=== PATIENT | female | born 1945 | race Caucasian/White ===

== ENCOUNTER 2025-08-29 16:35 | Emergency (ER) | payer MEDICARE, SELFPAY ==
--- OUTSIDE RECORDS SUMMARY | 2025-07-21 08:46 | XMS_ITS | Encounter Summary ---
Author Organization [facility] Address [address] [place] [address] Care Team Providers Care Unit Technician Name Role Phone Jay Guzman M.D. Primary Care [facility] Reason for Referral * Outpatient (Routine) - Closed Specialty Diagnoses / Procedures Referred By Contac t Referred To Contact Diagnoses Atrial Fibrillation Other Persistent (HCC) Procedures ECG 12 Lead Jorge Ordaz M.D. [address] [place] [address] Phone: tel: fax: [facility] Referral ID Status Reason Start Date Expiration Date Visits Re quested Visits Authorized [id number] Closed 12/23/2024 03/25/2026 1 1 Reason for Visit * Outpatient (Routine) - Closed Specialty Diagnoses / Procedures Referred By Osvaldo keith Referred To Contact Diagnoses Atrial Fibrillation Other Persistent (HCC) Procedures ECG 12 Lead Jorge Ordaz M.D. [address] [place] [address] Phone: tel: fax: [facility] Region Referral ID Status Reason Start Date Expiration Date Visits Re quested Visits Authorized [id number] Closed 12/23/2024 03/25/2026 1 1 Encounter Details Date Type Department Care Team (Latest Contact Info) Description 07/21/2025 8:46 AM CDT - 07/21/2025 11:59 PM CDT Hospital Encounter Department of Laboratory Medicine in [place], [place] [address] [facility] [address] Jorge Ordaz M.D. [address] [facility] [place] [phone] Atrial Fibrillation Other Persistent (HCC) Discharge Disposition: Home or Self Care Social History Tobacco Use Types Packs/Day Years Used Date Smoking Tobacco: Never Passive Smoke Exposure: Past Smokeless Tobacco: Never Comments:Father smoked until 1956 Alcohol Use Standard Drinks/Week Comments Not Currently 0 (1 standard drink = 0.6 oz pure alcohol) Not used since 1976 - anabaptism reasons Humiliation, Afraid, Rape, and Kick questionnair e Answer Date Recorded Within the last year, have y ou been afraid of your partner or ex-partner? No 11/29/2024 Within the last year, have y ou been humiliated or emotionally abused in other ways by your partner or ex-partner? No Within the last year, have y ou been kicked, hit, slapped, or otherwise physically hurt by your partner or ex-partner? No 11/29/2024 Within the last year, have y ou been raped or forced to have any kind of sexual activity by your partner or ex-partner? No 11/29/2024 Hunger Vital Sign Answer Date Recorded Within the past 12 months, y ou worried that your food would run out before you got the money to buy more. Never true 07/14/20 25 Within the past 12 months, t he food you bought just didn't last and you didn't have money to get more. Never true 07/14/2025 PRAPARE - Transportation Answer Date Re corded In the past 12 months, has l ack of transportation kept you from medical appointments or from getting medications? No 06/17 In the past 12 months, has l ack of transportation kept you from meetings, work, or from getting things needed for daily living? No 07/14/2025 [facility] Utilities Answer Date Recorded In the past 12 months has th e electric, gas, oil, or water company threatened to shut off services in your home? No 07/14/2025 Depression Answer Date Recor ded PHQ-9 Total Score (max 27) 0 12/02 Housing Stability Answer Date Recorded What is your living situation today? I have a [facility] [place] place to live 07/14/2025 Education Answer Date Recorded What is the highest level of school you have completed or the highest degree you have received? 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 AM ADVISORY SERVICES ASSOCIATE Gender Identity Female 08/18/2021 8:27 PM CDT Sexual Orientation Not on file Occupation Industry Job Start Date Job End Date [employer] Not on file Not on file Not on file Not on file Not on file Not on file Not on file documented as of this encounter Medications at Time of Discharge ASCORBIC ACID, VITAMIN C, ORAL Take 1 tablet by mouth as needed. clobetasoL (Temovate) 0.05 % ointment Apply 1 Application topically 2 (two) times a day. Apply to perianal skin twice daily for 4-6 weeks. If symptoms improve can then switch to twice daily. 30 g 12/20/2024 co-enzyme Q-10 (Co Q-10) 100 mg capsule Take 100 mg by mouth daily. cyanocobalamin (vitamin B-12) 250 mcg tablet Take 250 mcg by mouth once a week. Once a week estradioL (Estrace) 0.1 mg/g (0.01%) vaginal cream Insert 2 g into the vagina at bedtime. Apply twice weekly. 30 g 3 01/02/2025 phytonadione, vitamin K1, (Mephyton) 100 mcg tablet Take 100 mcg by mouth once. terbinafine (LamISIL) 250 mg tabletIndication s:Onychomycosis Take 1 tablet (250 mg total) by mouth daily. 04/25/2025 UNABLE TO FIND Take 1 each by mouth once daily. Med Name: calm (magnesium citrate) 1/2 tsp UNABLE TO FIND Take 1 each by mouth daily. Med Name: Calm with calcium (magnesium citrate, calcium, potassium and boron) 1 tsp daily UNABLE TO FIND Med Name: AlgaeCal - calcium, magnesium, boron, vitamin K1, D, & C VITAMIN A ORAL Take 1 capsule by mouth 2 (two) times a week. vitamin K2 100 mcg capsule Take 1 capsule by mouth daily. vitamins A,C,V-jlzr-guvef r (PRESERVISION AREDS) 7,160 Units-113 mg-100 Units per tablet Take 1 tablet by mouth daily. documented as of this encounter Plan of Treatment Upcoming Encounters Date Type Department Care Team (Latest Contact Info) Description 08/30/2025 10:30 AM CDT Hospital Encounter Division of Cardiovascular Diseases in [address] [phone] Perry Lozano M.D., M.P.H. [address] [place] [phone] Atrial Fibrillation Permanent (HCC) 08/30/2025 11:46 AM CDT - 08/30/2025 2:26 PM CDT Surgery Division of Cardiovascular Diseases in [address] [phone] Perry Lozano M.D., M.P.H. [address] [place] [phone] PPM IMPLANT 08/31/2025 4:25 PM CDT Hospital Encounter Division of Cardiovascular Diseases in [address] [phone] Alo Mehta M.D., M.B.A. [address] [place] [phone] Atrial Fibrillation Longstanding Persistent (HCC) 08/31/2025 4:25 PM CDT - 08/31/2025 6:20 PM CDT Surgery Division of Cardiovascular Diseases in [address] [phone] Alo Mehta M.D., M.B.A. [address] [place] [address] ABLATION - AV NODE 10/24/2025 1:00 PM ADVISORY SERVICES ASSOCIATE Appointment Department of Cardiovascular Diseases in [place], [place] [address] [facility] [place] [address] Jorge Ordaz M.D. [address] [place] [address] documented as of this encounter Procedures Procedure Name Priority Date/Time Associated Diagnosis Comments ECG Routine 07/21/2025 9:06 AM CDT Atrial Fibrillation Other Persistent (HCC) documented in this encounter Results * ECG 12 Lead (07/21/2025 9:06 AM CDT) Ventricular Rate ECG/Min 129 BPM MUSE QRSD Interval 100 ms MUSE QT Interval 326 ms MUSE QTC Interval 477 ms MUSE R [place] -74 degrees MUSE T Wave [place] 93 degrees MUSE 07/21/2025 9:06 AM CDT 07/21/2025 9:47 AM CDT Impressions MUSE - 07/21/2025 9:47 AM CDT Atrial fibrillation with rapid ventricular response Left anterior fascicular block Incomplete right bundle branch block Nonspecific ST and T wave abnormality When compared with ECG of 23-Jan-2025 12:19, Vent. rate has increased by 60 bpm Incomplete right bundle branch block is now present Atrial fibrillation is no longer with premature ventricular or aberrantly conducted complexes Reviewed by MONALISA Haro Narrative Procedure Note John Zaidi M.D. - 07/21/2025 IMPRESSION: Atrial fibrillation with rapid ventricular response Left anterior fascicular block Incomplete right bundle branch block Nonspecific ST and T wave abnormality When compared with ECG of 23-Jan-2025 12:19, Vent. rate has increased by 60 bpm Incomplete right bundle branch block is now present Atrial fibrillation is no longer with premature ventricular or aberrantlyconducted complexes Reviewed by MONALISA Haro Jorge Ordaz M.D. ECG ORDERABLES Final Resu lt MUSE NA documented in this encounter Visit Diagnoses Diagnosis Atrial Fibrillation Other Persistent (HCC) Atrial Fibrillation Permanent (HCC)- Primary Atrial Fibrillation Longstanding Persistent (HCC)- Primary Atrial Fibrillation Permanent (HCC) Atrial Fibrillation Longstanding Persistent (HCC) documented in this encounter Additional Health Concerns Assessment Noted Time PHQ-9 Depression Total Score: 0 12/02/19 25 3:00 PM ADVISORY SERVICES ASSOCIATE A fall risk assessment has been complete d for the patient 09/12/2022 10:09 AM CDT documented as of this encounter Care Teams Unit Technician Relationship Specialty Start Date End Date Jay Guzman M.B.B.S., M.D. [address] [place] [phone] PCP - General Family Medicine 09/20/20 documented as of this encounter
--- OUTSIDE RECORDS SUMMARY | 2025-07-21 09:30 | XMS_ITS | Encounter Summary ---
Author Organization [facility] Address [address] [place] [address] Care Team Providers Care Shearing Machine Tender Name Role Phone Jay Guzman M.D. [facility] Reason for Referral * Cardiovascular-Diagnostic (Routine) - Authorized Specialty Diagnoses / Procedures Referred By Contcorrine t Referred To Contact Diagnoses Atrial Fibrillation Longstanding Persistent (HCC) Regurgitation Mitral Procedures Echo Transthoracic (TTE) Echo Transthoracic (TTE) Jorge Ordaz M.D. [address] [place] [address] Phone: tel: fax: [facility] Region Referral ID Status Reason Start Date Expiration Date V isits Requested Visits Authorized [id number] Authorized 07/21/2025 10/21/2026 1 1 * Outpatient (Routine) - Authorized Specialty Diagnoses / Procedures Referred By Contac t Referred To Contact Diagnoses Atrial Fibrillation Longstanding Persistent (HCC) Regurgitation Mitral Procedures ECG 12 Lead [place] EKG 12 LEAD W I&R Jorge Ordaz M.D. [address] [place] [address] Phone: tel: fax: [facility] Region Referral ID Status Reason Start Date Expiration Date V isits Requested Visits Authorized [id number] Authorized 07/21/2025 10/21/2026 1 1 * Outpatient (Routine) - Authorized Specialty Diagnoses / Procedures Referred By Osvaldo keith Referred To Contact Cardiovascular Disease Jorge Ordaz M.D. [address] [place] [address] Phone: tel: fax: [facility] Region Referral ID Status Reason Start Date Expiration Date V isits Requested Visits Authorized [id number] Authorized 07/21/2025 01/20/2027 1 1 Reason for Visit * Reason Comments Follow-up * Outpatient (Routine) - Closed Specialty Diagnoses / Procedures Referred By Osvaldo keith Referred To Contact Cardiovascular Disease Jorge Ordaz M.D. [address] [place] [address] Phone: tel: fax: [facility] Region Referral ID Status Reason Start Date Expiration Date Visits Re quested Visits Authorized [id number] Closed 12/23/2024 06/24/2026 1 1 Encounter Details Date Type Department Care Team (Latest Contact Info) Description 07/21/2025 9:30 AM CDT Office Visit Department of Cardiovascular Diseases in [place], [place] [address] [place] [phone] Jorge Ordaz M.D. [address] [place] [phone] Atrial Fibrillation Longstanding Persistent (HCC) (Primary Dx); Regurgitation Mitral Social History Tobacco Use Types Packs/Day Years Used Date Smoking Tobacco: Never Passive Smoke Exposure: Past Smokeless Tobacco: Never Comments:Father smoked until 1956 Alcohol Use Standard Drinks/Week Comments Not Currently 0 (1 standard drink = 0.6 oz pure alcohol) Not used since 1976 - scientologist reasons Humiliation, Afraid, Rape, and Kick questionnair [...] things needed for daily living? No 07/14/2025 [facility] Utilities Answer Date Recorded In the past 12 months has [facility] electric, gas, oil, or water company threatened to shut off services in your home? No 07/14/2025 Depression Answer Date Recor ded PHQ-9 Total Score (max 27) 0 12/02 Housing Stability Answer Date Recorded What is your living situation today? I have a [facility] place to live 07/14/2025 Education Answer Date Recorded What is the highest level of school you have completed or the highest degree you have received? 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 [id number] 3 (4 if heart failure, 5 if [...] for her needs. - Consult with a line crewman to develop a suitable diet plan Advance Care Planning The patient has an advanced care plan on file. PLAN: #1 Atrial Fibrillation Longstanding Persistent (HCC) Overview: Atrial Fibrillation #2 Regurgitation Mitral Other orders - Cardiovascular Disease office visit (clinic) [facility]; General - Cardiovascular Disease office visit (clinic) [facility] Region; General; Future; Expected date: 07/21/2026 - [...] breath at these times. In June, her [employer] mobile device indicated a steady rhythm, although it was not sinus rhythm. She recently tried a line crewman's program but found it unsuitable as it [...] mean Doppler gradient 2 mmHg Mild (possibly twmv-kb-nsoyvppa) regurgitation. 4. Mild-moderately enlarged right ventricular chamber [...] (15-OCT-2015). Diastolic mean Doppler gradient 2 mmHg. Qozq-sv-kkaofiva tricuspid regurgitation. 4. Mild-moderately enlarged right ventricular [...] 07/21/2025 326 QTC Interval 07/21/2025 477 R Chaplin 07/21/2025 -74 T Wave Chaplin 07/21/2025 93 Lab Results Component Value Date [...] Total Cholesterol: 218 mg/dL IMPRESSION/REPORT/PLAN See above. oJrge Ordaz M.D. [1] Current Outpatient Medications Medication [...] Take 1 capsule by mouth daily. vitamins A,C,K-xget-euyjbw (PRESERVISION AREDS) 7,160 Units-113 mg-100 Units per [...] Hospital Encounter Division of Cardiovascular Diseases in [address] [phone] Perry Lozano M.D., M.P.H. [address] [place] [phone] Atrial Fibrillation Permanent (HCC) 08/30/2025 11:46 AM CDT - 08/30/2025 2:26 PM CDT Surgery Division of Cardiovascular Diseases in [address] [phone] Perry Lozano M.D., M.P.H. [address] [place] [phone] PPM IMPLANT 08/31/2025 4:25 PM CDT Hospital Encounter Division of Cardiovascular Diseases in [address] [phone] Alo Mehta M.D., M.B.A. [address] [place] [phone] Atrial Fibrillation Longstanding Persistent (HCC) 08/31/2025 4:25 PM CDT - 08/31/2025 6:20 PM CDT Surgery Division of Cardiovascular Diseases in [address] [phone] Alo Mehta M.D., M.B.A. [address] [place] [phone] ABLATION - AV NODE 10/24/2025 1:00 PM BAKERY MACHINE MECHANIC Appointment Department of Cardiovascular Diseases in [place], [place] [address] [place] [address] Jorge Ordaz M.D. [address] [place] [phone] Scheduled Orders Name Type Priority Associated Diagnoses Orde r Schedule ECG 12 Lead ECG Routine Atrial Fibrillation Longstanding Persistent (HCC) Regurgitation Mitral Expected: 07/21/2026, Expires: 10/20/2026 Echo Transthoracic (TTE) Echocardiography Routine Atrial Fibrillation Longstanding Persistent (HCC) Regurgitation Mitral Expected: 10/20/2025, Expires: 10/20/2026 Scheduled Referrals Name Type Priority Associated Diagnoses Order Schedule Cardiovascular Disease office visit (clinic) [facility]; General Outpatient Referral Routine Expected: 07/21/2026 (Approximate), Expires: 10/20/2026 documented as of this encounter Visit Diagnoses Diagnosis Atrial Fibrillation Longstanding Persistent (HCC)- Primary Regurgitation Mitral Atrial Fibrillation Permanent (HCC)- Primary Atrial Fibrillation Longstanding Persistent (HCC)- Primary Atrial Fibrillation Permanent (HCC) Atrial Fibrillation Longstanding Persistent (HCC) documented in this encounter Additional Health Concerns Assessment Noted Time PHQ-9 Depression Total Score: 0 12/02/19 25 3:00 PM BAKERY MACHINE MECHANIC A fall risk assessment has been complete d for the patient 09/12/2022 10:09 AM CDT documented as of this encounter Care Teams Shearing Machine Tender Relationship Specialty Start Date End Date Jay Guzman M.B.BJuan AlbertoSJuan Alberto, MShant. [address] [place] [phone] PCP - General Family Medicine 09/20/20 documented as of this encounter
--- OUTSIDE RECORDS SUMMARY | 2025-08-15 11:00 | XMS_ITS | Encounter Summary ---
Author Organization [facility] Address [address] [place] [address] Care Team Providers Care Water Server Name Role Phone Jay Guzman M.D. Primary Care Shital lopez Reason for Visit * Reason Comments Skin Check * Appointment Request (Routine) - Closed Specialty Diagnoses / Procedures Referred By Osvaldo keith Referred To Contact Dermatology Referral ID Status Reason Start Date Expiration Date Visits Re quested Visits Authorized [id number] Closed 04/24/2025 07/25/2026 1 1 Encounter Details Date Type Department Care Team (Latest Contact Info) Description 08/15/2025 11:00 AM CDT Comprehensive Visit Department of Family Medicine, [facility], in [place], [place] [address] [phone] Sujatha Staples APRN, C.N.P. [address] [place] [phone] Nevi Multiple (Primary Dx); Screening Examination Skin Cancer; Keratosis Seborrheic; Angioma Castro; Dermatoheliosis Social History Tobacco Use Types Packs/Day Years Used Date Smoking Tobacco: Never Passive Smoke Exposure: Past Smokeless Tobacco: Never Comments:Father smoked until 1956 Alcohol Use Standard Drinks/Week Comments Not Currently 0 (1 standard drink = 0.6 oz pure alcohol) Not used since 1977 - mu-ism reasons Humiliation, Afraid, Rape, and Kick questionnair [...] things needed for daily living? No 07/14/2025 [place] Utilities Answer Date Recorded In the past 12 months has e electric, gas, oil, or water company threatened to shut off services in your home? No 07/14/2025 Depression Answer Date Recor ded PHQ-9 Total Score (max 27) 0 12/02 Housing Stability Answer Date Recorded What is your living situation today? I have a [facility] place to live 07/14/2025 Education Answer Date Recorded What is the highest level of school you have completed or the highest degree you have received? 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 Anything beyond the scope of my abilitiesor comfort level will be referred to a Mexican Food Cook of their choosing. HISTORY OF PRESENT ILLNESS [...] Take 1 capsule by mouth daily. vitamins A,C,E-hsri-tkvlvt (PRESERVISION AREDS) 7,160 Units-113 mg-100 Units per [...] Hospital Encounter Division of Cardiovascular Diseases in [address] [phone] Perry Lozano M.D., M.P.H. [address] [place] [phone] Atrial Fibrillation Permanent (HCC) 08/30/2025 11:46 AM CDT - 08/30/2025 2:26 PM CDT Surgery Division of Cardiovascular Diseases in [address] [phone] Perry Lozano M.D., M.P.H. [address] [place] [phone] PPM IMPLANT 08/31/2025 4:25 PM CDT Hospital Encounter Division of Cardiovascular Diseases in [address] [phone] Alo Mehta M.D., M.B.A. [address] [place] [phone] Atrial Fibrillation Longstanding Persistent (HCC) 08/31/2025 4:25 PM CDT - 08/31/2025 6:20 PM CDT Surgery Division of Cardiovascular Diseases in [address] [phone] Alo Mehta M.D., M.B.A. [address] [place] [phone] ABLATION - AV NODE 10/24/2025 1:00 PM MACHINE FINISHER Appointment Department of Cardiovascular Diseases in [place], [place] [address] [place] [phone] Jorge Ordaz M.D. [address] [place] [phone] documented as of this encounter Visit Diagnoses Diagnosis Nevi Multiple- Primary Screening Examination Skin Cancer Keratosis Seborrheic Angioma Castro Dermatoheliosis Atrial Fibrillation Permanent (HCC)- Primary Atrial Fibrillation Longstanding Persistent (HCC)- Primary Atrial Fibrillation Permanent (HCC) Atrial Fibrillation Longstanding Persistent (HCC) documented in this encounter Additional Health Concerns Assessment Noted Time PHQ-9 Depression Total Score: 0 12/02/19 25 3:00 PM MACHINE FINISHER A fall risk assessment has been complete d for the patient 09/12/2022 10:09 AM CDT documented as of this encounter Care Teams Water Server Relationship Specialty Start Date End Date Jay Guzman M.B.BJuan AlbertoSJuan Alberto, MShant. [address] [place] [phone] PCP - General Family Medicine 09/20/20 documented as of this encounter
--- OUTSIDE RECORDS SUMMARY | 2025-08-23 15:00 | XMS_ITS | Encounter Summary ---
Author Organization [facility] Address [address] [place] [address] Care Team Providers Care Quill Collector Name Role Phone Jay Guzman M.D. [facility] Reason for Visit * Reason Comments Other Headache, tachycardi a, vaccinations, Encounter Details Date Type Department Care Team (Late st Contact Info) Description 08/23/2025 3:00 PM CDT Office Visit Department of Family Medicine, [facility], in [place], [place] [address] [place] [phone] Jay Guzman M.B.B.S., MPaulie [address] [place] [phone] Atrial Fibrillation Longstanding Persistent (HCC) (Primary Dx) Social History Tobacco Use Types Packs/Day Years Used Date Smoking Tobacco: Never Passive Smoke Exposure: Past Smokeless Tobacco: Never Comments:Father smoked until 1956 Alcohol Use Standard Drinks/Week Comments Not Currently 0 (1 standard drink = 0.6 oz pure alcohol) Not used since 1976 - pentecostal reasons Humiliation, Afraid, Rape, and Kick questionnair [...] things needed for daily living? No 07/14/2025 [employer] Utilities Answer Date Recorded In the past 12 months has [employer] electric, gas, oil, or water company threatened to shut off services in your home? No 07/14/2025 Depression Answer Date Recor ded PHQ-9 Total Score (max 27) 0 12/02 Housing Stability Answer Date Recorded What is your living situation today? I have a [facility] place to live 07/14/2025 Education Answer Date Recorded What is the highest level of school you have completed or the highest degree you have received? 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 [address] [place] [phone] Atrial Fibrillation Permanent (HCC) 08/30/2025 11:46 AM CDT - 08/30/2025 2:26 PM CDT Surgery Division of Cardiovascular Diseases in [address] [phone] Perry Lozano M.D., M.P.H. [address] [place] [phone] PPM IMPLANT 08/31/2025 4:25 PM CDT Hospital Encounter Division of Cardiovascular Diseases in [address] [phone] Alo Mehta M.D., M.B.A. [address] [place] [phone] Atrial Fibrillation Longstanding Persistent (HCC) 08/31/2025 4:25 PM CDT - 08/31/2025 6:20 PM CDT Surgery Division of Cardiovascular Diseases in [address] [phone] Alo Mehta M.D., M.B.A. [address] [place] [phone] ABLATION - AV NODE 10/24/2025 1:00 PM UNEMPLOYMENT INSPECTOR Appointment Department of Cardiovascular Diseases in [place], [place] [address] [place] [phone] Jorge Ordaz M.D. [address] [facility] [place] [phone] documented as of this encounter Visit Diagnoses Diagnosis Atrial Fibrillation Permanent (HCC)- Primary Atrial Fibrillation Longstanding Persistent (HCC)- Primary Atrial Fibrillation Longstanding Persistent (HCC)- Primary Atrial Fibrillation Permanent (HCC) Atrial Fibrillation Longstanding Persistent (HCC) documented in this encounter Additional Health Concerns Assessment Noted Time PHQ-9 Depression Total Score: 0 12/02/19 25 3:00 PM UNEMPLOYMENT INSPECTOR A fall risk assessment has been complete d for the patient 09/12/2022 10:09 AM CDT documented as of this encounter Care Teams Quill Collector Relationship Specialty Start Date End Date Jay Guzman M.B.B.S., M.D. [address] [facility] [place] [phone] PCP - General Family Medicine 09/20/20 documented as of this encounter
--- OUTSIDE RECORDS SUMMARY | 2025-08-24 06:12 | XMS_ITS | Encounter Summary ---
Author Organization [facility] Address [address] [place] [address] Care Team Providers Care Warehouse Man Name Role Phone Jay Guzman M.D. Primary Care [facility] Reason for Referral * Cardiovascular-Diagnostic (Routine) - Closed Specialty Diagnoses / Procedures Referred By Osvaldo keith Referred To Contact Diagnoses Atrial Fibrillation Longstanding Persistent (HCC) Procedures Echo Transthoracic (TTE) Perry Lozano M.D., M.P.H. [address] [place] [phone] Phone: tel: fax: [facility] Referral ID Status Reason Start Date Expiration Date Visits Re quested Visits Authorized [id number] Closed 08/23/2025 11/23/2026 1 1 Reason for Visit * Cardiovascular-Diagnostic (Routine) - Closed Specialty Diagnoses / Procedures Referred By Osvaldo keith Referred To Contact Diagnoses Atrial Fibrillation Longstanding Persistent (HCC) Procedures Echo Transthoracic (TTE) Perry Lozano M.D., M.P.H. [address] [place] [address] Phone: tel: fax: [facility] Referral ID Status Reason Start Date Expiration Date Visits Re quested Visits Authorized [id number] Closed 08/23/2025 11/23/2026 1 1 Encounter Details Date Type Department Care Team (Latest Contact Info) Description 08/24/2025 6:12 AM CDT - 08/24/2025 8:19 AM CDT Hospital Encounter Department of Cardiovascular Diseases in [place], [place] [address] [place] [address] Perry Lozano M.D., M.P.H. [address] [place] [address] Atrial Fibrillation Longstanding Persistent (HCC) Discharge Disposition: Home or Self Care Social History Tobacco Use Types Packs/Day Years Used Date Smoking Tobacco: Never Passive Smoke Exposure: Past Smokeless Tobacco: Never Comments:Father smoked until 1956 Alcohol Use Standard Drinks/Week Comments Not Currently 0 (1 standard drink = 0.6 oz pure alcohol) Not used since 1976 - restorationist reasons Humiliation, Afraid, Rape, and Kick questionnair [...] medical appointments or from getting medications? No 08/2 07/2025 In the past 12 months, has l ack of transportation kept you from meetings, work, or from getting things needed for daily living? No 07/14/2025 [facility] Utilities Answer Date Recorded In the past 12 months has th e electric, gas, oil, or water company threatened to shut off services in your home? No 07/14/2025 Depression Answer Date Recor ded PHQ-9 Total Score (max 27) 0 12/02 Housing Stability Answer Date Recorded What is your living situation today? I have a [facility] place to live 07/14/2025 Education Answer Date Recorded What is the highest level of school you have completed or the highest degree you have received? 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 AM EDITOR Gender Identity Female 08/18/2021 8:27 PM CDT [...] Take 1 capsule by mouth daily. vitamins A,C,L-udzk-xdhzr r (PRESERVISION AREDS) 7,160 Units-113 mg-100 Units per tablet Take 1 tablet by mouth daily. dilTIAZem (Cardizem) 60 mg tablet Take 1 tablet (60 mg total) by mouth every 6 (six) hours. 360 tablet 08/08/2025 9:14 AM CDT 08/07/2025 documented as of this encounter Plan of Treatment Upcoming Encounters Date Type Department Care Team (Latest Contact Info) Description 08/30/2025 10:30 AM CDT Hospital Encounter Division of Cardiovascular Diseases in [address] [phone] Perry Lozano M.D., M.P.H. [address] [place] [phone] Atrial Fibrillation Permanent (HCC) 08/30/2025 11:46 AM CDT - 08/30/2025 2:26 PM CDT Surgery Division of Cardiovascular Diseases in [address] [address] Perry Lozano M.D., M.P.H. [address] [place] [phone] PPM IMPLANT 08/31/2025 4:25 PM CDT Hospital Encounter Division of Cardiovascular Diseases in [address] [address] Alo Mehta M.D., M.B.A. [address] [place] [phone] Atrial Fibrillation Longstanding Persistent (HCC) 08/31/2025 4:25 PM CDT - 08/31/2025 6:20 PM CDT Surgery Division of Cardiovascular Diseases in [place], [place] [address] [place] [address] Alo Mehta M.D., M.B.A. [address] [place] [address] ABLATION - AV NODE 10/24/2025 1:00 PM EDITOR Appointment Department of Cardiovascular Diseases in [place], [place] [address] [place] [address] Jorge Ordaz M.D. [address] [place] [phone] documented as of this encounter Procedures Procedure Name Priority Date/Time Associated Diagnosis Comments (TTE) 2D ECHO DOPPLER COLOR AND CONTRAST Routine 08/24/2025 8:03 AM CDT Atrial Fibrillation Longstanding Persistent (HCC) documented in this encounter Results * (TTE) 2D ECHO DOPPLER COLOR AND CONTRAST (08/24/2025 8:03 AM CDT) Ejection Fraction 45 MC CV EIMS Sinus of Valsalva 36 MC CV EIMS Sinotubular Junction 30 MC CV EIMS Proximal Ascending Aorta 37 MC CV EIMS Mid-Ascending Aorta 39 MC CV EIMS LV Mass Index 110 MC CV EIMS LV End-Diastolic Diameter 51 MC CV EIMS LV End-Systolic Diameter 35 MC CV EIMS Left ventricular stroke volume index 24 MC CV EIMS Cardiac Output 5.54 MC CV EIMS Cardiac Index 3.05 MC CV EIMS LV Interventricular Septal Wall Thickness 12 MC CV EIMS LV Posterior Wall Thickness 9 MC CV EIMS LV Relative Wall Thickness 35 MC CV EIMS TR Vmax 2.61 MC CV EIMS Estimated RA Pressure (Echo RAP) 20 MC CV EIMS RV Systolic Pressure (with Echo RAP) 47 MC CV EIMS AV mean gradient 3 MC CV EIMS Aortic valve area 2.91 MC CV EIMS Aortic Valve Dimensionless Index 0.84 MC CV EIMS MV mean gradient 8 MC CV EIMS Aortic Valve Systolic Peak Velocity 1 MC CV EIMS Anatomical Region Laterality Modality Echocardiography 08/24/2025 6:35 AM CDT Impressions 08/24/2025 9:47 AM CDT Agitated saline injection(s) performed. Status post Carbomedics mitral valve annuloplasty (15-OCT-2015). Status post Carbomedics tricuspid valve annuloplasty (15-OCT-2015). LEFT VENTRICLE:Borderline enlarged left ventricular chamber size. Normal left ventricular geometry. Estimated left ventricular ejection fraction range 45% - 55% , with beat to beat variability int the setting of afib RVR. Abnormal ventricular septal motion - post-operative. No regional wall motion abnormalities. Mild generalized left ventricular hypokinesis. Indeterminate left ventricular filling pressure. RIGHT VENTRICLE:Mild-moderately enlarged right ventricular chamber size. Mildly reduced right ventricular systolic function. Right ventricular systolic pressure 47 mmHg (right atrial pressure of 20 mmHg). ATRIA:Severely enlarged left atrial size. Severely enlarged right atrial size by visual estimate. CARDIAC VALVES:Mildly thickened aortic valve. Aortic valve strands. Trivial aortic valve regurgitation. Mitral annuloplasty ring identified. Mitral valve diastolic mean Doppler gradient 8 mmHg (heart rate 125 BPM). Mild mitral valve regurgitation. Normal pulmonary valve. Normal pulmonary valve systolic velocities. Trivial pulmonary valve regurgitation. Tricuspid annuloplasty ring identified. Mild-moderate tricuspid valve regurgitation , eccentric septally directed jet. OTHER ECHO FINDINGS:Enlarged inferior vena cava size with reduced inspiratory collapse (<50%). Hepatic vein dilatation. Normal sinus of Valsalva diameter of 36 mm. Borderline enlarged mid ascending aorta diameter of 39 mm. Upper limit of normal of the mid ascending aorta, for age, sex and BSA is 39 mm. Abdominal aorta incompletely visualized. Normal abdominal aorta Doppler flow pattern. Positive for atrial level shunt by color flow imaging. Hezs-qx-rclqe shunt at atrial level. No intracardiac mass or thrombus, but the left atrial appendage cannot be visualized adequately with transthoracic echo to exclude thrombus in this location. No pericardial effusion. For the complete report, see the Order-Level Documents. Narrative 08/24/2025 9:47 AM CDT For the complete report, see the Order-Level Documents. Hemodynamics Heart Rate: 126 BPM Blood Pressure: 139 / 92 mmHg ECG: Atrial fibrillation, Rapid Ventricular Rate Final Impressions 1. 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 2. The patient was in atrial fibrillation with rapid ventricular response for the duration of the study. 3. Borderline enlarged left ventricular chamber size , mild generalized hypokinesis. 4. Estimated left ventricular ejection fraction range 45% - 55% , with beat to beat variability int the setting of atrial fibrillation with rapid ventricular response. 5. Mild-moderately enlarged right ventricular chamber size , mildly reduced systolic function. 6. Right ventricular systolic pressure 47 mmHg (right atrial pressure of 20 mmHg). 7. Mitral valve diastolic mean Doppler gradient 8 mmHg (heart rate 125 BPM). Mild residual mitral regurgitation. 8. Mild-moderate tricuspid valve regurgitation , eccentric septally directed jet. 9. Afoy-uc-rocuj shunt at atrial level at the site of prior transseptal puncture. 10. Compared to the report of 08/17/2024 the following changes have occurred: the patient is in atrial fibrillation with rapid ventricular response. The left ventricular ejection fraction is slightly lower although variable based on preceding R-R interval. Side by side comparison of images performed. Procedure Note Maury Roth M.D. - 08/24/2025 For the complete report, see the Order-Level Documents. Hemodynamics Heart Rate: 126 BPM Blood Pressure: 139 / 92 mmHg ECG: Atrial fibrillation, Rapid Ventricular Rate Final Impressions 1. Status post mitral valve repair, tricuspid repair, and left atrialappendage amputation (15-OCT-2015). 2. The patient was in atrial fibrillation with rapid ventricular responsefor the duration of the study. 3. Borderline enlarged left ventricular chamber size , mild generalizedhypokinesis. 4. Estimated left ventricular ejection fraction range 45% - 55% , withbeat to beat variability int the setting of atrial fibrillation with rapidventricular response. 5. Mild-moderately enlarged right ventricular chamber size , mildlyreduced systolic function. 6. Right ventricular systolic pressure 47 mmHg (right atrial pressure of20 mmHg). 7. Mitral valve diastolic mean Doppler gradient 8 mmHg (heart rate 125BPM). Mild residual mitral regurgitation. 8. Mild-moderate tricuspid valve regurgitation , eccentric septallydirected jet. 9. Qflc-tn-jtlov shunt at atrial level at the site of prior transseptalpuncture. 10. Compared to the report of 08/17/2024 the following changes haveoccurred: the patient is in atrial fibrillation with rapid ventricularresponse. The left ventricular ejection fraction is slightly loweralthough variable based on preceding R-R interval. Side by sidecomparison of images performed. Findings Agitated saline injection(s) performed. Status post Carbomedics mitralvalve annuloplasty (15-OCT-2015). Status post Carbomedics tricuspid valveannuloplasty (15-OCT-2015). LEFT VENTRICLE:Borderline enlarged left ventricular chamber size. Normalleft ventricular geometry. Estimated left ventricular ejection fractionrange 45% - 55% , with beat to beat variability int the setting of afibRVR. Abnormal ventricular septal motion - post-operative. No regional wallmotion abnormalities. Mild generalized left ventricular hypokinesis.Indeterminate left ventricular filling pressure. RIGHT VENTRICLE:Mild-moderately enlarged right ventricular chamber size.Mildly reduced right ventricular systolic function. Right ventricularsystolic pressure 47 mmHg (right atrial pressure of 20 mmHg). ATRIA:Severely enlarged left atrial size. Severely enlarged right atrialsize by visual estimate. CARDIAC VALVES:Mildly thickened aortic valve. Aortic valve strands.Trivial aortic valve regurgitation. Mitral annuloplasty ring identified.Mitral valve diastolic mean Doppler gradient 8 mmHg (heart rate 125 BPM).Mild mitral valve regurgitation. Normal pulmonary valve. Normal pulmonaryvalve systolic velocities. Trivial pulmonary valve regurgitation.Tricuspid annuloplasty ring identified. Mild-moderate tricuspid valveregurgitation , eccentric septally directed jet. OTHER ECHO FINDINGS:Enlarged inferior vena cava size with reducedinspiratory collapse (<50%). Hepatic vein dilatation. Normal sinus ofValsalva diameter of 36 mm. Borderline enlarged mid ascending aortadiameter of 39 mm. Upper limit of normal of the mid ascending aorta, forage, sex and BSA is 39 mm. Abdominal aorta incompletely visualized. Normalabdominal aorta Doppler flow pattern. Positive for atrial level shunt bycolor flow imaging. Tqvw-ck-fyawc shunt at atrial level. No intracardiacmass or thrombus, but the left atrial appendage cannot be visualizedadequately with transthoracic echo to exclude thrombus in this location.No pericardial effusion. For the complete report, see the Order-Level Documents. us Perry Lozano M.D., M.P.H. CV ECHO PROCEDURES F inal Result documented in this encounter Visit Diagnoses Diagnosis Atrial Fibrillation Permanent (HCC)- Primary Atrial Fibrillation Longstanding Persistent (HCC)- Primary Atrial Fibrillation Longstanding Persistent (HCC) Atrial Fibrillation Permanent (HCC) Atrial Fibrillation Longstanding Persistent (HCC) documented in this encounter Administered Medications Inactive Administered Medications - up to 3 most recent administrations Medication Order MAR Action Action Date Dose Rate Site NaCl 0.9% bacteriostatic 0.9 % injection 30 mL 30 mL, intravenous, As needed, for agitated saline (bubble) studies, Starting on Karely 08/24/25 at 0800, Intraprocedure - Diagnostic, See Jose. Given 08/24/2025 8:16 AM CDT 30 mL documented in this encounter Additional Health Concerns Assessment Noted Time PHQ-9 Depression Total Score: 0 12/02/19 3:00 PM EDITOR A fall risk assessment has been complete d for the patient 09/12/2022 10:09 AM CDT documented as of this encounter Care Teams Warehouse Man Relationship Specialty Start Date End Date Jay Guzman M.B.B.S., M.D. [address] [place] [phone] PCP - General Family Medicine 09/20/20 documented as of this encounter
--- OUTSIDE RECORDS SUMMARY | 2025-08-24 08:20 | XMS_ITS | Encounter Summary ---
Author Organization [facility] Address [address] [place] [address] Care Team Providers Care Automobiles Salesperson Name Role Phone Jay Guzman M.D. [facility] Encounter Details Date Type Department Care Team (Latest Contact Info) Description 08/24/2025 8:20 AM CDT - 08/24/2025 8:40 AM CDT Hospital Encounter Department of Laboratory Medicine and Pathology, [facility], in [place], [place] [address] [place] [address] Perry Lozano M.D., M.P.H. [address] [place] [address] Atrial Fibrillation Longstanding Persistent (HCC) Discharge Disposition: Home or Self Care Social History Tobacco Use Types Packs/Day Years Used Date Smoking Tobacco: Never Passive Smoke Exposure: Past Smokeless Tobacco: Never Comments:Father smoked until 1956 Alcohol Use Standard Drinks/Week Comments Not Currently 0 (1 standard drink = 0.6 oz pure alcohol) Not used since 1976 - denominational reasons Humiliation, Afraid, Rape, and Kick questionnair [...] things needed for daily living? No 07/14/2025 [facility] Utilities Answer Date Recorded In the past 12 months has th e electric, gas, oil, or water company threatened to shut off services in your home? No 07/14/2025 Depression Answer Date Recor ded PHQ-9 Total Score (max 27) 0 12/02 Housing Stability Answer Date Recorded What is your living situation today? I have a [facility] place to live 07/14/2025 Education Answer Date Recorded What is the highest level of school you have completed or the highest degree you have received? 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 AM WOOD HEEL CEMENTER Gender Identity Female 08/18/2021 8:27 PM CDT [...] Take 1 capsule by mouth daily. vitamins A,C,C-xrym-ekddb r (PRESERVISION AREDS) 7,160 Units-113 mg-100 Units [...] Hospital Encounter Division of Cardiovascular Diseases in [place], [place] [address] [place] [phone] Perry Lozano M.D., M.P.H. [address] [place] [address] Atrial Fibrillation Permanent (HCC) 08/30/2025 11:46 AM CDT - 08/30/2025 2:26 PM CDT Surgery Division of Cardiovascular Diseases in [address] [phone] Perry Lozano M.D., M.P.H. [address] [place] [phone] PPM IMPLANT 08/31/2025 4:25 PM CDT Hospital Encounter Division of Cardiovascular Diseases in [address] [phone] Alo Mehta M.D., M.B.A. [address] [place] [phone] Atrial Fibrillation Longstanding Persistent (HCC) 08/31/2025 4:25 PM CDT - 08/31/2025 6:20 PM CDT Surgery Division of Cardiovascular Diseases in [address] [phone] Alo Mehta M.D., M.B.A. [address] [place] [phone] ABLATION - AV NODE 10/24/2025 1:00 PM WOOD HEEL CEMENTER Appointment Department of Cardiovascular Diseases in [place], [place] [address] [place] [phone] Jorge Ordaz M.D. [address] [place] [phone] documented as of this encounter Procedures [...] in this encounter Results * Thyroid Function [place] (08/24/2025 8:36 AM CDT) Pathologist [facility] TSH, Sensitive 2.3 0.3 - 4.2 mIU/L 08/24/2025 9:55 AM CDT DTL Blood (Blood, Venous) 08/24/2025 8:36 AM CDT 08/24/2025 8:55 AM CDT Perry Lozano M.D., M.P.H. LAB BLOOD ADD-ON Fin al Result [facility] [address] [place] [address], [facility] [address] [place] [address] * CBC without Differential (08/24/2025 8:36 AM CDT) Pathologist [facility] Hemoglobin 13.3 11.6 - 15.0 g/dL 08/24/2025 [...] M.P.H. LAB BLOOD ADD-ON Fin al Result [facility] [address] [place] [address], [facility] DTL [facility] [address] [place] [address] * (ABNORMAL) Basic Metabolic Panel (08/24/2025 8:36 AM CDT) Pathologist [facility] Potassium, S 4.0 3.6 - 5.2 mmol/L [...] M.P.H. LAB BLOOD ADD-ON Fin al Result [facility] [address] [place] [address], [place] DTL [facility] [address] [place] [address] documented in this encounter Visit Diagnoses Diagnosis Atrial Fibrillation Permanent (HCC)- Primary Atrial Fibrillation Longstanding Persistent (HCC)- Primary Atrial Fibrillation Longstanding Persistent (HCC) Atrial Fibrillation Permanent (HCC) Atrial Fibrillation Longstanding Persistent (HCC) documented in this encounter Additional Health Concerns Assessment Noted Time PHQ-9 Depression Total Score: 0 12/02/19 25 3:00 PM WOOD HEEL CEMENTER A fall risk assessment has been complete d for the patient 09/12/2022 10:09 AM CDT documented as of this encounter Care Teams Automobiles Salesperson Relationship Specialty Start Date End Date Jay Guzman M.B.B.S., M.D. [address] [place] [phone] PCP - General Family Medicine 09/20/20 documented as of this encounter
--- OUTSIDE RECORDS SUMMARY | 2025-08-24 08:41 | XMS_ITS | Encounter Summary ---
Author Organization [facility] Address [address] [place] [address] Care Team Providers Care Job Analyst Name Role Phone Jay Guzman M.D. Primary Care [facility] Reason for Referral * Outpatient (Routine) - Closed Specialty Diagnoses / Procedures Referred By Osvaldo keith Referred To Contact Diagnoses Atrial Fibrillation Longstanding Persistent (HCC) Procedures DX Chest AP or PA and Lateral 2 Views Perry Lozano M.D., M.P.H. [address] [place] [phone] Phone: tel: fax: [facility] Referral ID Status Reason Start Date Expiration Date Visits Re quested Visits Authorized [id number] Closed 08/23/2025 11/23/2026 1 1 Reason for Visit * Outpatient (Routine) - Closed Specialty Diagnoses / Procedures Referred By Osvaldo keith Referred To Contact Diagnoses Atrial Fibrillation Longstanding Persistent (HCC) Procedures DX Chest AP or PA and Lateral 2 Views Perry Lozano M.D., M.P.H. [address] [place] [address] Phone: tel: fax: [facility] Referral ID Status Reason Start Date Expiration Date Visits Re quested Visits Authorized [id number] Closed 08/23/2025 11/23/2026 1 1 Encounter Details Date Type Department Care Team (Latest Contact Info) Description 08/24/2025 8:41 AM CDT - 08/24/2025 11:59 PM CDT Hospital Encounter Department of Radiology, [facility], in [place], [place] [address] [place] [address] Perry Lozano M.D., M.P.H. [address] [place] [address] Atrial Fibrillation Longstanding Persistent (HCC) Discharge Disposition: Home or Self Care Social History Tobacco Use Types Packs/Day Years Used Date Smoking Tobacco: Never Passive Smoke Exposure: Past Smokeless Tobacco: Never Comments:Father smoked until 1956 Alcohol Use Standard Drinks/Week Comments Not Currently 0 (1 standard drink = 0.6 oz pure alcohol) Not used since 1976 - holiness reasons Humiliation, Afraid, Rape, and Kick questionnair [...] things needed for daily living? No 07/14/[address] [facility] Utilities Answer Date Recorded In the past 12 months has th e electric, gas, oil, or water company threatened to shut off services in your home? No 07/14/2025 Depression Answer Date Recor ded PHQ-9 Total Score (max 27) 0 12/02 Housing Stability Answer Date Recorded What is your living situation today? I have a [facility] place to live 07/14/2025 Education Answer Date Recorded What is the highest level of school you have completed or the highest degree you have received? 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 AM MEAT PASSER Gender Identity Female 08/18/2021 8:27 PM CDT [...] Take 1 capsule by mouth daily. vitamins A,C,N-raux-ckicc r (PRESERVISION AREDS) 7,160 Units-113 mg-100 Units [...] Hospital Encounter Division of Cardiovascular Diseases in [address] [phone] Perry Lozano M.D., M.P.H. [address] [place] [phone] Atrial Fibrillation Permanent (HCC) 08/30/2025 11:46 AM CDT - 08/30/2025 2:26 PM CDT Surgery Division of Cardiovascular Diseases in [address] [phone] Perry Lozano M.D., M.P.H. [address] [place] [phone] PPM IMPLANT 08/31/2025 4:25 PM CDT Hospital Encounter Division of Cardiovascular Diseases in [address] [phone] Alo Mehta M.D., M.B.A. [address] [place] [phone] Atrial Fibrillation Longstanding Persistent (HCC) 08/31/2025 4:25 PM CDT - 08/31/2025 6:20 PM CDT Surgery Division of Cardiovascular Diseases in [place], [place] [address] [place] [address] Alo Mehta M.D., M.B.A. [address] [place] [address] ABLATION - AV NODE 10/24/2025 1:00 PM MEAT PASSER Appointment Department of Cardiovascular Diseases in [place], [place] [address] [place] [phone] Jorge Ordaz M.D. [address] [place] [phone] documented as of this encounter Procedures Procedure [...] Total Score: 0 12/02/19 25 3:00 PM MEAT PASSER A fall risk assessment has been complete d for the patient 09/12/2022 10:09 AM CDT documented as of this encounter Care Teams Job Analyst Relationship Specialty Start Date End Date Jay Guzman M.B.B.S., M.D. [address] [place] [phone] PCP - General Family Medicine 09/20/20 documented as of this encounter
--- OUTSIDE RECORDS SUMMARY | 2025-08-24 10:00 | XMS_ITS | Encounter Summary ---
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 Primary Care Shital lopez Reason for Visit * Outpatient (Routine) - Closed Specialty Diagnoses / Procedures Referred By Osvaldo keith Referred To Contact Cardiovascular Disease Perry Lozano M.D., M.P.H. [address] [place] [address] Phone: tel: fax: [facility] Referral ID Status Reason Start Date Expiration Date Visits Re quested Visits Authorized [id number] Closed 08/23/2025 02/22/2027 1 1 Encounter Details Date Type Department Care Team (Latest Contact Info) Description 08/24/2025 10:00 AM CDT Office Visit Department of Cardiovascular Medicine in [place], [place] [address] [place] [phone] Jamar Gan M.D. [address] [place] [phone] Atrial Fibrillation Longstanding Persistent (HCC) (Primary Dx) Social History Tobacco Use Types Packs/Day Years Used Date Smoking Tobacco: Never Passive Smoke Exposure: Past Smokeless Tobacco: Never Comments:Father smoked until 1956 Alcohol Use Standard Drinks/Week Comments Not Currently 0 (1 standard drink = 0.6 oz pure alcohol) Not used since 1976 - jainism reasons Humiliation, Afraid, Rape, and Kick questionnair [...] things needed for daily living? No 07/14/2025 [facility] Utilities Answer Date Recorded In the past 12 months has e electric, gas, oil, or water company threatened to shut off services in your home? No 07/14/2025 Depression Answer Date Recor ded PHQ-9 Total Score (max 27) 0 12/02 Housing Stability Answer Date Recorded What is your living situation today? I have a [facility] place to live 07/14/2025 Education Answer Date Recorded What is the highest level of school you have completed or the highest degree you have received? 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 Not on file Not on file Not on file Not on file Not on file Not on file documented as of this encounter Last Filed Vital Signs Vital Sign Reading Time Taken Comments Blood Pressure 149/77 08/24/2025 10:16 AM CDT Pulse 84 08/24/2025 10:16 AM CDT Temperature - - Respiratory Rate - - Oxygen Saturation - - Inhaled Oxygen Concentration - - Weight 67.9 kg (149 lb 12.8 oz) 025 10:16 AM CDT Height 178 cm (5' 10.08) 08/24/2025 10 :16 AM CDT Body Mass Index 21.45 08/24/2025 10:16 AM CDT documented in this encounter Patient Instructions * Attachments The following attachments cannot be sent through Care Everywhere. * Direct Oral Anticoagulants: Oral Anticoagulant Therapy * Your Leadless Pacemaker * VIDEO: LIVING WELL WITH A PACEMAKER (AZERI) documented in this encounter Consult Notes * Jamar Gan M.D. - 08/24/2025 10:00 AM CDT The patient verbally consented to an audio recording of their visit to assist with the completion of documentation. SUBJECTIVE Tachycardias REFERRED BY Perry Lozano M.D., M.P.H. [address] [place] [id number] CHIEF COMPLAINT/REASON FOR VISIT AF with RVR HISTORY OF PRESENT ILLNESS I had the pleasure of meeting Mrs. Christie Carlisle as a new patient to me, having been previously seen by Dr Lozano . History obtained is from patient and from prior documents/notes/charts, which were also reviewed with patient. Allow me to briefly summarize patient's history. Cardiac Hx Mrs. Christie Carlisle is a 80 y.o. female with a past medical history significant for #1 Tricuspid and mitral valve repair, Maze procedure and left atrial appendage amputation 2014 #2 Recurrent atrial flutter with subsequent dofetilide 500 mcg twice daily loading. #3 Repeat catheter ablation procedure November 29, 2024. During the ablation procedure all veins were isolated and we targeted fractionated signals near the caval tricuspid isthmus. She was admitted to the hospital post ablation procedure for further management. She had redness of the arm near the IV site as well as focal visual field defect during that hospitalization. She was discharged on anticoagulation therapy. She tells me that the pattern of atrial fibrillation has changed a few weeks after the ablation procedure. She does have episodes of palpitations that last for a few hours but theyquickly returned back to normal. She is tolerating the current burden of atrial fibrillation. 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 She was recently started back on budesonide. She saw Dr Lozano 01/2025: have discussed 3 options with her today. She is currently having diarrhea and is getting steroid therapy. One option would be to continue to stay with the course without any AV nicholas blocking agents or antiarrhythmic drug. The 2nd option would be to consider dofetilide initiation. I explained to her that the dofetilide initiation may cause more bradycardia requiring pacemaker implantation. The 3rd option would be to consider pacemaker with AV node ablation procedures. She is going to think about these 3 options and once her diarrhea improves she will contact us if she decides to pursue dofetilide initiation. Atrial fibrillation with episodes of rapid ventricular response, minimally symptomatic. She has been managing without medication, experiencing improvement in [...] of tachycardia induced cardiomyopathy and potentially improve symptoms (by avoi ding extremely elevated heart rates). 08/18/25: Dr. Lozano said its reasonable for a PPM + AVN History of Present Illness Mrs. Christie Carlisle is a 80 year old female with atrial fibrillation who presents with persistent tachycardia. After undergoing an ablation procedure in November, her heart rate initially stabilized to 60-70 bpm, with occasional spikes managed through dietary adjustments. However, since the end of June, she has experienced persistent tachycardia, with heart rates rarely dropping below 100 bpm and often reaching 140-150 bpm. She notes a peak heart rate of 180 bpm before adjusting her medications. She has tried verapamil, which briefly reduced her heart rate to the low 60s but caused intolerableside effects. Subsequently, she switched to diltiazem, which at maximum dose could not reduce her heart rate below 100 bpm. She experienced pauses and faintness while on diltiazem, leading to its discontinuation, resulting in a heart rate of approximately 120 bpm. She is currently not on any medications. She reports that her most recent echocardiogram was difficult to interpret due to her fast heart rate, and that the reported ejection fraction was 45-55%, compared to 57% a year ago. A bubble test indicated a small connection between the right and left atria. 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 She has not been on long-term blood thinners due to this condition. 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 No history of fainting or blacking out, but she experiences feelings of faintness with pauses in her heart rhythm. History of Present Illness Medications: Current Medications[1] Allergies: Allergies Allergen Reactions Milk Other (see comments) [...] (see comments) Autoimmune Thrombocytopenia REVIEW OF SYSTEMS 10 point review of systems, completed. Pertinent positives as listed in history of present illness and past cardiac history. MEDICAL HISTORY/FAMILY HISTORY/SOCIAL HISTORY/PROBLEM LIST The following portions of the patient's history were reviewed and updated as appropriate: allergies, current medications, family history, medical history, social history, surgical history and problemlist. OBJECTIVE Vitals: 08/24/25 1016 BP: 149/77 BP Location: Left arm Patient Position: Sitting Cuff Size: Regular Pulse: 84 Weight: 67.9 kg Height: 178 cm Body mass index is 21.45 kg/m??. PHYSICAL EXAMINATION General: Alert, oriented times 3; pleasant and appropriate. Eye: EOM intact Heart: Tachycardic, irregular. No murmurs, gallops, or rubs. Jugular venous pressure and pulsation normal. Pulmonary: Normal respiratory effort and air movement. Lungs are clear in all valenzuela on anterior and posterior auscultation. Abdomen: Soft, nondistended. No tenderness. Extremities: No clubbing or cyanosis, no lower extremity edema. Gait: Normal, independent. Skin: No erythema DIAGNOSTICS Labs: Pertinent laboratory studies have been reviewed and are notable for: Lab Results Component Value Date/Time EGFR 64 08/24/2025 08:36 AM EGFR 89 12/12/2024 12:15 PM TSH 2.3 08/24/2025 08:36 AM TSH 2.5 04/28/2022 04:33 PM Lab Results Component Value Date WBC 4.9 08/24/2025 HGB 13.3 08/24/2025 HCT 40.7 08/24/2025 MCV 93.8 08/24/2025 PLT 200 08/24/2025 Lab Results Component Value Date NA 141 08/24/2025 CL 104 08/24/2025 CREATININE 0.92 08/24/2025 EGFR 64 08/24/2025 BUN 24 (H) 08/24/2025 ANIONGAP 12 08/24/2025 GLUCOSE 104 08/24/2025 CALCIUM 9.3 08/24/2025 Lab Results Component Value Date INR 1.2 01/23/2016 INR 1.3 01/15/2016 INR 1.5 01/08/2016 PT 18.4 (H) 11/23/2015 PT 18.5 (H) 11/22/2015 PT 20.6 (H) 11/20/2015 Lab Results Component Value Date ALT 29 11/28/2024 AST 23 11/28/2024 ALKPHOS 61 11/28/2024 BILITOT 0.4 11/28/2024 ECG, which I personally reviewed: ECG 12 Lead Result Date: 08/24/2025 Atrial fibrillation with rapid ventricular response Left anterior fascicular block Moderate voltage criteria for LVH, may be normal variant Nonspecific ST and T wave abnormality When compared with ECG of 21-Jul-2025 09:06, Incomplete right bundle branch block is no longer present Reviewed by MONALISA Neff Arrhythmia monitoring, which I personally reviewed the report and tracings: I have reviewed the reports for the following: Echocardiogram: Interpretation Summary For the complete report, see the Order-Level [...] 55% , with beat to beat variability intthe setting of atrial fibrillation with rapid ventricular response. 5. Mild-moderately enlarged right ventricular chamber size , mildly reduced systolic function. 6. Right ventricular systolic pressure 47 mmHg (right atrial pressure of 20 mmHg). 7. Mitral valve diastolic mean Doppler gradient 8 mmHg (heart rate 125 BPM). Mild residual mitral regurgitation. 8. Mild-moderate tricuspid valve regurgitation , eccentric septally directed jet. 9. Acft-gi-wjcgl shunt at atrial level at the site of prior transseptal puncture. 10. Compared to the report of 08/17/2024 the following changes have occurred: the patient is in atrial fibrillation with rapid ventricular response. The left ventricular ejection fraction is slightlylower although variable based on preceding R-R interval. Side by side comparison of images performe 08/24/25 Echo Study Date 08/17/24 Echo Transthoracic (TTE) Narrative For the complete report, see the Order-Level Documents. Hemodynamics Heart Rate: 62 BPM Blood Pressure: 156 / 78 mmHg ECG: Sinus rhythm with ectopics Measurement Comments: [Rhythm] difficult to ascertain; junctional versus a more regular atrial fibrillation are included in the differential diagnosis. Final Impressions 1. Transthoracic outreach echo interpretation. 2. Status post [employer] mitral valve annuloplasty (15-OCT-2015), diastolic mean Doppler gradient3 mmHg . Mild mitral regurgitation. 3. Status post [employer] tricuspid valve annuloplasty (15-OCT-2015), diastolic mean Doppler gradient 2 mmHg Mild (possibly gtws-mx-tytpdync) regurgitation. 4. Mild-moderately enlarged right ventricular chamber [...] improved left ventricular contractility (markedly improved from ANISH 04/2024); increase estimated right ventriclesystolic pressure and right atrial pressure. Side by side comparison of images performed. Impression Transthoracic outreach echo interpretation. Echocardiogram performed per left ventricular function protocol. Last full echocardiogram performed 05/27/2023. LEFT VENTRICLE:Borderline enlarged left ventricular chamber size. Calculated 2-D linear left ventricular ejection fraction 57%. Abnormal ventricular septal motion - post-operative without other regional wall motion abnormalities. Indeterminate left ventricular filling pressure. RIGHT VENTRICLE:Mild-moderately enlarged right ventricular chamber size. Mildly reduced right ventricular systolic function. Estimated right ventricular systolic pressure 46 mmHg (right atrial pressure of 15 mmHg). ATRIA:Severely enlarged left atrial size. Severely enlarged right atrial size by visual estimate. CARDIAC VALVES:Mildly thickened aortic valve. Trivial aortic valve regurgitation. Status post Carb[employer] mitral valve annuloplasty (15-OCT-2015). Mitral valve diastolic mean Doppler gradient 3 mmHg (heart rate 53 BPM). Mild mitral valve regurgitation. Status post Carbomedics tricuspid valve annuloplasty (15-OCT-2015). Tricuspid valve diastolic mean Doppler gradient 2 mmHg (heart rate 54 BPM). Mild tricuspid valve regurgitation. OTHER ECHO FINDINGS:Normal inferior vena cava size with reduced inspiratory collapse (<50%). Normal sinus of Valsalva diameter of 38 mm. Borderline enlarged mid ascending aorta diameter of 40 mm. No intracardiac mass or thrombus, but the left atrial appendage cannot be visualized adequately withtransthoracic echo to exclude thrombus in this location. No pericardial effusion. 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 We discussed AV node ablation as a rate control strategy. This has high success of achieving rate control, particularly if patient can not or will not be able to tolerate a long procedure or has multiple atrial arrhythmias in which success of rhythm controlling them all is likely low to modest, at best. The major risk of the AV node ablation is that it comes with trade off of becoming pacer dependent and it is not a rhythm control strategy (and hence there may still be loss of AV synchrony and symptoms related to this). Patient understands that it will not treat atrial fibrillation itself butwould allow patient to potentially reduce rate control medications, which may improve symptoms, as well as help with paroxysms of tachycardia/RVR. Patient understands that it is a rate control strategy, not rhythm control and that they would remain in atrial fibrillation. If patient had symptoms from the dysrhythmia itself and not necessarily from the rates, then they may remain symptomatic. There is also the risk of being pacemaker dependent and a subsequent risk of RV pacing, which can lead to a pacing induced cardiomyopathy in 10-15% of patients. I also reviewed with patient re: pros/cons/risks/benefits/rationale of His bundle, LBB/left bundle,physiologic pacing, compared to right ventricular apical or septal pacing. I explained to the patient in layman's terms the details of the procedure and the risks associated with catheter ablation, which include, but are not limited to, bleeding, infection, cardiac perforation, permanent pacemaker requirement, stroke, new arrhythmias, myocardial infarction, and . We also discussed risks of transseptal access and left sided ablation if necessary. Patient understandsthat there is a 2-4% risk of these major complications and is able to reiterate their understandingto me. The patient was given ample opportunity to ask any questions, and all questions were answered. Patient would like to proceed. We reviewed the pros/cons/risks/benefits of a traditional transvenous device, compared to a leadless device. The leadless device would avoid a lead and a pocket, and potentially avoiding any issues regarding pocket bleeding or pocket concerns, with potentially less risk of infection, device erosionat the pocket, and avoiding the cosmetic issues related to a pocket in the shoulder region. The battery life may be shorter with a leadless device, and may have less features, and, depending on some cardiac anatomies, may have less options in terms of placement in the RV (depending on capture thresholds, degree of fibrosis), and the overall experience is less by a few orders of magnitude given that it has been available only in the last decade. In addition, when the battery is depleted, patientmay need an entirely new device or if there is pacing induced CM, we would need to convert to an entirely new transvenous system. The overall risks of the two devices, in terms of frequency, are similar although there are different risks (potentially higher risk of pericardial effusion and venous bl eeding, risk of embolization for the leadless device, compared to risks of pneumothorax and pocket and lead related issues for the transvenous route). We also discussed right vs left sided device, subpectoral vs subcutaneous, risks to the tricuspid valve (with either transvenous or leadless device, as each can have potential risks to the tricuspid valve) and the various device manufacturers and pros/cons of each. Patient does not wish to sign consent form today and I have printed the consent form for patient for device and AV node ablation. She will like to discuss with Dr. Lozano regarding the device options. Assessment & Plan Atrial Fibrillation (AFib) She has persistent atrial fibrillation with heart rates rarely below 100 bpm, often spiking to 180 bpm. A previous ablation in November provided temporary relief. Current management with diltiazem andverapamil was ineffective and caused side effects. Echocardiogram shows reduced ejection fraction (45-55%) compared to last year (57%), likely due to rapid heart rate. A small interatrial communication is noted, likely from previous ablation. She is at high risk of stroke due to age, gender, and history of AFib, with a CHADS-VASc score of at least 3-5, indicating at least a 4-6% annual stroke risk. Thrombocytopenia complicates long-term anticoagulation but her platelets are normal. Discuss long-term anticoagulation with emergency planner and primary cafeteria supervisor. Consider pacemaker implantation and AV node ablation to control ventricular rate. I have provided additional educational materials on risks and benefits of pacemaker options: transvenous vs. leadless. Schedule pacemaker implantation and AV node ablation with Dr. Lozano. In terms of manager long term care anticoagulation for AF, we discussed the data re: surgical LAAO. In LAOS III ([facility]), surgical LAAO alone was not compared to anticoagulation but rather it was surgical LAAO+anticoagulation vs anticoagulation alone, which showed that LAAO+anticoagulation was superior. Hence, there is limited data that surgical LAAO alone is similar to anticoagulation. If she has no contraindication to anticoagulation and has no strong rationale to seek an alternative to anticoagulation, her best strategy for stroke prevention is LAAO and remaining on anticoagulation, particularly in light of her high CHADSVASC score. If she cannot tolerate anticoagulation or strongly feels she needs to come off anticoagulation, then a ANISH could be performed, similar to how we assess post-percutaneous LAAO such as with Watchman/Amulet and if the appendage is closed, then this would be extrapolation of that data that she may be able to stop anticoagulation, though I discussed that this is an area that is understudied with regards to surgical LAAO. We discussed the role of left atrial appendage closure (which patient had surgically) and the various types of closure and how we ensure complete closure. The most data that we have is for the transcatheter EMILIE closure devices for which we typically repeat imaging at least 45 days after closure to ensure that there are no leaks. We can consider a similar protocol if patient wishes to remain off anticoagulation, though this would be an extrapolation of the data from these types of devices and their studies to a separate procedure/device, and we do not have as strong clinical data and follow upin these non-device circumstances. Thrombocytopenia Thrombocytopenia is triggered by wheat and managed by dietary avoidance. Her platelet count is>150,000, and currently is not a contraindication to long-term anticoagulation for stroke prevention in AFib. Continue dietary management to avoid wheat. Monitor platelet count regularly. Consult with emergency planner regarding anticoagulation management. From a stroke prevention standpoint, we would recommend anticoagulation based on her CHADS-VASc score Summary of Recommendations After detailed discussions and review of risks/benefits/pros/cons/alternatives, patient wishes to proceed with previously scheduled procedure (PPM/AV node ablation) as recommended by Dr Lozano in a shared-decision process. She wishes to discuss the type of pacemaker with Dr Sharma. Thank you for involving us in the care of this viktor patient. Please do not hesitate to call or contact me with any questions or concerns. Jamar Gan MD Cardiovascular Medicine/Electrophysiology TIME/COMMUNICATION: I personally spent a total of 62 minutes which includes zzyc-mt-agvd time and ewl-flqy-no-face spent on preparing to see the patient, reviewing prior notes and tests, obtaining history from the patient, performing a medically appropriate exam, counseling and educating the patient, ordering medicatio ns/tests/procedures/referrals as clinically indicated, and documenting information in the electronic medical record. Our discussions are outlined in detail regarding the various aspects above, for purposes of documentation: AF: Anticoagulation and CHADS-VASC score I explained to Christie Jay Keonthomas that the major risks of atrial flutter/atrial fibrillation isthat of a stroke, and this risk does not change whether they are symptomatic or not, and is not affected by a rate control or rhythm control strategy. The risks/benefits of anticoagulation is balanced between prevention of stroke and risks of bleeding on anticoagulation therapy. We discussed the following in detail: 1. For patients with AF and an elevated [id number] score of 2 or greater in men or 3 or greater in women, oral anticoagulants are recommended. For men with CHADS-VASC 1 or women with CHADS-VASC 2, risks/benefits of stroke vs anticoagulation are relatively balanced and may be considered and is based on patient's preference/values. Options include: Warfarin, Dabigatran, Rivaroxaban, Apixaban, Edoxaban - the risks/benefits/data/side effects of each were reviewed. 2. NOACs/DOACs (dabigatran, rivaroxaban, apixaban, and edoxaban) are recommended over warfarin in DOAC-/NOAC-eligible patients with AF (except with ljqouatp-mh-dzrmqf mitral stenosis or a mechanical heart valve). 3. Exclusion criteria are now defined as dqukkfci-sv-yimqgk mitral stenosis or a mechanical heart valve. 4. In patients with AF (except with mdivamnw-xz-qhlpxi mitral stenosis or a mechanical heart valve), the [id number] score is recommended for assessment of stroke risk I have explained the risks/benefits/side effects of warfarin and DOACs/NOACs as above, including but not limited to, bleeding, coumadin skin necrosis, interactions with other drugs. Advantages of NOACs include better risk/benefit profile (for some), more consistent regimen, and lack of monitoring required. Disadvantages include expense and less of a track record/skilled nursing data. Furthermore, reversal of these drugs with an acute bleed is less well known (antidotes are availablebut may be less readily available and less commonly used) and may be more difficult than trying to reverse warfarin. It is also important that these medications are taken regularly without missing doses, and there may be increased risks of thrombosis if they are stopped immediately. These drugs arestudied in nonvalvular AF and thus if there is significant valvular disease, it would be off label use. [id number] Score [id number] Adjusted Stroke Rate (%/year) Congestive HF 1 0 0-1 Hypertension 1 1 1.3 Age >75 y 2 2 2.2 Diabetes mellitus 1 3 3.2 Stroke/TIA/TE 2 4 4.0 Vascular disease 1 5 6.7 Age 65-74 y 1 6 9.8 Female sex 1 7 9.6 Maximum score 9 8 6.7 9 15.20 [1] Current Medications: ASCORBIC ACID, VITAMIN C, ORAL, Take 1 tablet by mouth as needed. clobetasoL (Temovate) 0.05 % ointment, Apply 1 Application topically 2 (two) times a day. Apply to perianal skin twice daily for 4-6 weeks. If symptoms improve can then switch to twice daily. (Patient taking differently: Apply 1 Application topically daily. Apply to perianal skin once daily, three times a week.) co-enzyme Q-10 (Co Q-10) 100 mg capsule, Take 100 mg by mouth daily. cyanocobalamin (vitamin B-12) 250 mcg tablet, Take 250 mcg by mouth once a week. Once a week (Patient taking differently: Take 250 mcg by mouth 2 (two) times a week. Once a week) dilTIAZem (Cardizem) 60 mg tablet, Take 1 tablet (60 mg total) by mouth every 6 (six) hours. estradioL (Estrace) 0.1 mg/g (0.01%) vaginal cream, Insert 2 g into the vagina at bedtime. Apply twice weekly. phytonadione, vitamin K1, (Mephyton) 100 mcg tablet, Take 100 mcg by mouth once. terbinafine (LamISIL) 250 mg tablet, Take 1 tablet (250 mg total) by mouth daily. UNABLE TO FIND, Take 1 each by mouth once daily. Med Name: calm (magnesium citrate) 1/2 tsp UNABLE TO FIND, Take 1 each by mouth daily. Med Name: Calm with calcium (magnesium citrate, calcium, potassium and boron) 1 tsp daily UNABLE TO FIND, Med Name: AlgaeCal - calcium, magnesium, boron, vitamin K1, D, & C VITAMIN A ORAL, Take 1 capsule by mouth 2 (two) times a week. vitamin K2 100 mcg capsule, Take 1 capsule by mouth daily. vitamins A,C,X-osqn-onurpb (PRESERVISION AREDS) 7,160 Units-113 mg-100 Units per tablet, Take 1 tablet by mouth daily. Current Medications: fluorescein 100 mg/mL (10 %) injection 500 mg, Once in imaging sodium chloride 0.9 % injection 10 mL, PRN Facility-Administered Medications Ordered in Other Visits: NaCl 0.9% bacteriostatic 0.9 % injection 30 mL, PRN sodium chloride 0.9 % injection 10 mL, PRN documented in this encounter Plan of Treatment Upcoming Encounters Date Type Department Care Team (Latest Contact Info) Description 08/30/2025 10:30 AM CDT Hospital Encounter Division of Cardiovascular Diseases in [address] [phone] Peryr Lozano M.D., M.P.H. [address] [place] [phone] Atrial Fibrillation Permanent (HCC) 08/30/2025 11:46 AM CDT - 08/30/2025 2:26 PM CDT Surgery Division of Cardiovascular Diseases in [address] [phone] Perry Lozano M.D., M.P.H. [address] [place] [phone] PPM IMPLANT 08/31/2025 4:25 PM CDT Hospital Encounter Division of Cardiovascular Diseases in [address] [phone] Alo Mehta M.D., M.B.A. [address] [place] [phone] Atrial Fibrillation Longstanding Persistent (HCC) 08/31/2025 4:25 PM CDT - 08/31/2025 6:20 PM CDT Surgery Division of Cardiovascular Diseases in [address] [phone] Alo Mehta M.D., M.B.A. [address] [place] [phone] ABLATION - AV NODE 10/24/2025 1:00 PM FIBER ARTIST Appointment Department of Cardiovascular Diseases in [place], [place] [address] [place] [phone] Jorge Ordaz M.D. [address] [place] [phone] documented as of this encounter Visit Diagnoses Diagnosis Atrial Fibrillation Permanent (HCC)- Primary Atrial Fibrillation Longstanding Persistent (HCC)- Primary Atrial Fibrillation Longstanding Persistent (HCC)- Primary Atrial Fibrillation Permanent (HCC) Atrial Fibrillation Longstanding Persistent (HCC) documented in this encounter Additional Health Concerns Assessment Noted Time PHQ-9 Depression Total Score: 0 12/02/19 3:00 PM FIBER ARTIST A fall risk assessment has been complete d for the patient 09/12/2022 10:09 AM CDT documented as of this encounter Care Teams Fudge Candy Maker Relationship Specialty Start Date End Date Jay Guzman M.B.B.SLeonarda Avendano [address] [place] [phone] PCP - General Family Medicine 09/20/20 documented as of this encounter
[2025-08-29] VITALS (7 sets, daily range): BP systolic 168–178; BP diastolic 103–131; PULSE 105–160; RESP 14–24; TEMP 36.8; O2SAT 96–99; BMI 21.2
--- OUTSIDE RECORDS SUMMARY | 2025-08-29 14:39 | XMS_ITS | Encounter Summary ---
Author Organization [facility] Address [address] [place] [address] Care Team Providers Care Rn Social Services Name Role Phone Jay Guzman M.D. [facility] Reason for Referral * Outpatient (Routine) - Closed Specialty Diagnoses / Procedures Referred By Contac t Referred To Contact Diagnoses Osteoporosis Procedures BMD Bone Density Spine Hips Jay Guzman M.B.B.S., M.D. [address] [place] [address] Phone: tel: fax: [facility] Region Referral ID Status Reason Start Date Expiration Date Visits Re quested Visits Authorized [id number] Closed 07/10/2025 10/10/2026 1 1 Reason for Visit * Outpatient (Routine) - Closed Specialty Diagnoses / Procedures Referred By Contac t Referred To Contact Diagnoses Osteoporosis Procedures BMD Bone Density Spine Hips Jay Guzman M.B.B.S., M.D. [address] [place] [address] Phone: tel: fax: [facility] Region Referral ID Status Reason Start Date Expiration Date Visits Re quested Visits Authorized [id number] Closed 07/10/2025 10/10/2026 1 1 Encounter Details Date Type Department Care Team (Late st Contact Info) Description 08/29/2025 2:39 PM CDT Hospital Encounter Department of Radiology in [place], [place] [address] [place] [address] Jay Guzman M.B.B.S., M.D. [address] [place] [phone] Osteoporosis Social History Tobacco Use Types Packs/Day Years Used Date Smoking Tobacco: Never Passive Smoke Exposure: Past Smokeless Tobacco: Never Comments:Father smoked until 1956 Alcohol Use Standard Drinks/Week Comments Not Currently 0 (1 standard drink = 0.6 oz pure alcohol) Not used since 1976 - yarsani reasons Humiliation, Afraid, Rape, and Kick questionnair [...] things needed for daily living? No 07/14/2025 [facility] Utilities Answer Date Recorded In the past 12 months has th e electric, gas, oil, or water company threatened to shut off services in your home? No 07/14/2025 Depression Answer Date Recor ded PHQ-9 Total Score (max 27) 0 12/02 Housing Stability Answer Date Recorded What is your living situation today? I have a [facility] place to live 07/14/2025 Education Answer Date Recorded What is the highest level of school you have completed or the highest degree you have received? 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 AM CUSTODIAL SERVICES MANAGER Gender Identity Female 08/18/2021 8:27 PM CDT Sexual Orientation Not on file Occupation Industry Job Start Date Job End Date [employer] Not on file Not on file Not on file Not on file Not on file Not on file Not on file documented as of this encounter Plan of Treatment Upcoming Encounters Date Type Department Care Team (Latest Contact Info) Description 08/30/2025 10:30 AM CDT Hospital Encounter Division of Cardiovascular Diseases in [address] [phone] Perry Lozano M.D., M.P.H. [address] [place] [phone] Atrial Fibrillation Permanent (HCC) 08/30/2025 11:46 AM CDT - 08/30/2025 2:26 PM CDT Surgery Division of Cardiovascular Diseases in [address] [phone] Perry Lozano M.D., M.P.H. [address] [place] [phone] PPM IMPLANT 08/31/2025 4:25 PM CDT Hospital Encounter Division of Cardiovascular Diseases in [address] [phone] Alo Mehta M.D., M.B.A. [address] [place] [address] Atrial Fibrillation Longstanding Persistent (HCC) 08/31/2025 4:25 PM CDT - 08/31/2025 6:20 PM CDT Surgery Division of Cardiovascular Diseases in [place], [place] [address] [place] [address] Alo Mehta M.D., M.B.A. [address] [place] [address] ABLATION - AV NODE 10/24/2025 1:00 PM CUSTODIAL SERVICES MANAGER Appointment Department of Cardiovascular Diseases in [place], [place] [address] [place] [address] Jorge Ordaz M.D. [address] [place] [phone] documented as of this encounter Procedures Procedure [...] Bone Mineral Density (BMD) analysis performed on [employer] with serial number [id number]. COMPARISON: Serial Comparisons Left Total Hip results: [...] including images and graphs, is available in [employer]. In the absence of other causes of [...] Bone Mineral Density (BMD) analysis performed on [employer] withserial number [id number]. COMPARISON: Serial Comparisons Left Total Hip results: [...] report, including images and graphs,is available in [facility]. In the absence of other causes of [...] Diagnoses Diagnosis Atrial Fibrillation Permanent (HCC)- Primary Regurgitation Mitral Hyperlipidemia Chronic Diastolic (Congestive) Heart Failure (HCC) Atypical Atrial Flutter (HCC) Apnea Sleep Obstructive Atrial Fibrillation Longstanding Persistent (HCC)- Primary Osteoporosis Atrial Fibrillation Permanent (HCC) Atrial Fibrillation Longstanding Persistent (HCC) documented in this encounter Additional Health Concerns Assessment Noted Time PHQ-9 Depression Total Score: 0 12/02/19 25 3:00 PM CUSTODIAL SERVICES MANAGER A fall risk assessment has been complete d for the patient 09/12/2022 10:09 AM CDT documented as of this encounter Care Teams Rn Social Services Relationship Specialty Start Date End Date Jay Guzman M.B.B.S., M.D. [address] [place] [phone] PCP - General Family Medicine 09/20/20 documented as of this encounter
--- OUTSIDE RECORDS SUMMARY | 2025-08-29 16:39 | XMS_ITS | Encounter Summary ---
Author Organization [facility] Address [address] [place] [address] Care Team Providers Care Industrial Roofer Name Role Phone Jay Guzman M.D. Primary Care [facility] Encounter Details Date Type Department Care Team (Late st Contact Info) Description 08/21/2025 Orders Only Department of Cardiovascular Medicine in [place], [place] [address] [place] [address] Perry Lozano M.D., M.P.H. [address] [place] [phone] Atrial Fibrillation Permanent (HCC) (Primary Dx) Social History Tobacco Use Types Packs/Day Years Used Date Smoking Tobacco: Passive Smo ke Exposure - Never Smoker Passive Smoke Exposure: Past Smokeless Tobacco: Never Comments:Father smoked until 1956 Alcohol Use Standard Drinks/Week Comments Not Currently 0 (1 standard drink = 0.6 oz pure alcohol) Not used since 1976 - voodoo reasons Humiliation, Afraid, Rape, and Kick questionnair [...] things needed for daily living? No 07/14/2025 [facility] Utilities Answer Date Recorded In the past 12 months has e electric, gas, oil, or water company threatened to shut off services in your home? No 07/14/2025 Depression Answer Date Recor ded PHQ-9 Total Score (max 27) 0 12/02 Housing Stability Answer Date Recorded What is your living situation today? I have a [facility] place to live 07/14/2025 Education Answer Date Recorded What is the highest level of school you have completed or the highest degree you have received? 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 AM MINE PATROL Gender Identity Female 08/18/2021 8:27 PM CDT [...] Hospital Encounter Division of Cardiovascular Diseases in [place], [place] [address] [place] [phone] Perry Lozano M.D., M.P.H. [address] [place] [phone] Atrial Fibrillation Permanent (HCC) 08/30/2025 11:46 AM CDT - 08/30/2025 2:26 PM CDT Surgery Division of Cardiovascular Diseases in [address] [phone] Perry Lozano M.D., M.P.H. [address] [place] [phone] PPM IMPLANT 08/31/2025 4:25 PM CDT Hospital Encounter Division of Cardiovascular Diseases in [address] [phone] Alo Mehta M.D., M.B.A. [address] [place] [phone] Atrial Fibrillation Longstanding Persistent (HCC) 08/31/2025 4:25 PM CDT - 08/31/2025 6:20 PM CDT Surgery Division of Cardiovascular Diseases in [address] [phone] Alo Mehta M.D., M.B.A. [address] [place] [phone] ABLATION - AV NODE 10/24/2025 1:00 PM MINE PATROL Appointment Department of Cardiovascular Diseases in [place], [place] [address] [place] [address] Jorge Ordaz M.D. [address] [place] [phone] documented as of this encounter Visit Diagnoses Diagnosis Atrial Fibrillation Permanent (HCC)- Primary Atrial Fibrillation Permanent (HCC)- Primary Atrial Fibrillation Longstanding Persistent (HCC)- Primary Atrial Fibrillation Permanent (HCC) Atrial Fibrillation Longstanding Persistent (HCC) documented in this encounter Additional Health Concerns Assessment Noted Time PHQ-9 Depression Total Score: 0 12/02/19 25 3:00 PM MINE PATROL A fall risk assessment has been complete d for the patient 09/12/2022 10:09 AM CDT documented as of this encounter Care Teams Industrial Roofer Relationship Specialty Start Date End Date Jay Guzman M.B.B.S., M.D. [address] [place] [phone] PCP - General Family Medicine 09/20/20 documented as of this encounter
--- OUTSIDE RECORDS SUMMARY | 2025-08-29 16:39 | XMS_ITS | Clinical Summary ---
Author Organization [facility] Address [address] [place] [address] Care Team Providers Care Windshield Wiper Repairer Name Role Phone Jay Guzman Primary Care Provider Allergies Active Allergy Reactions Criticality Noted Date Comments Amoxicillin-Pot Clavulanate *Unknown 12/19/2014 Made her feel worse and worse, does not want to take again Digoxin Dyspnea 06/10/2017 CVS symptoms, Memory lapses, Confusion, Light sensitivity Ibuprofen *Unknown,Other - Describe In Comment Field 03/25/2005 Cerner listed no reactions Cephalexin *Unknown 12/19/2014 Caused fungal infections of nails, skin Levofloxacin *Unknown 01/06/2013 Cerner listed no reactions Naproxen Visual Disturbances 12/19/2014 Rosamond Grass Extract *Unknown 11/12/2018 Rosamond breads and grains Wheat Other - Describe In Comment Field,*Unknown 03/25/2005 Autoimmune Thrombocytopenia Wheat Dextrin Other - Describe In Comment Field 12/19/2014 Medications zinc 15 mg tablet Take 30 mg by mouth 2 times daily. Active selenium 100 mcg tablet Take 100 mcg by mouth once daily. Takes tid but entry only accepts daily Active LECITHIN ORAL Take 1,200 mg by mouth 3 times daily. Active Ascorbic Acid (VITAMIN C) powd Take by mouth. Active acetaminophen (TYLENOL EXTRA STRGTH) 500 mg tablet Take 500 mg by mouth every 6 hours if needed. Max acetaminophen dose: 4000mg in 24 hrs. Active UBIDECARENONE/ TAMIN E MIXED (COQ10 SG 100 ORAL) Take 100 mg by mouth. Active metoprolol tartrate (LOPRESSOR) 50 mg tabletIndication s:Paroxysmal atrial fibrillation (HC) Take 1 tablet by mouth every 12 hours. 30 tablet 0 12/03/19 16 Active verapamiL (CALAN) 40 mg tablet Take by mouth. 08/29/20 20 Active Biotin 1 mg tablet Take 1,000 mcg by mouth. Active magnesium citrate (CITRATE OF MAG) Take by mouth. 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 Simple renal cyst 11/01/2004 Social History Tobacco Use Types Packs/Day Years Used Date Smoking Tobacco: Never Smokeless Tobacco: Never Alcohol Use Standard Drinks/Week Comments Never 0 (1 standard drink = 0.6 oz pur e alcohol) Social Connections Answer Date Recorded Frequency of Communication with Friends and Fami ly Not on file 11/08/2021 Financial Resource Strain Answer Date R ecorded Difficulty of Paying Living Expenses Not on file 11/08/2021 Difficulty of Paying Living Expenses Not on file 11/08/2021 Interpersonal Safety Answer Date Record ed Are you being hit, kicked, p ushed or yelled at (see row info)? No 07/13/2024 Interpersonal Safety Abuse 12 - 18 Not on file 07/13/2024 Interpersonal Safety Ambulatory Vulnerability No t on file 07/13/2024 Comments No Sex and Gender Information Value Date Recorded Sex Assigned at Not on file Legal Sex Female 6:13 AM SHAFT MECHANIC Gender Identity Not on file Sexual Orientation Not on file Obstetrics History Last Filed Vital Signs Vital Sign Reading Time Taken Comments Blood Pressure 128/71 07/13/2024 11:00 PM CDT Pulse 63 07/13/2024 11:00 PM CDT Temperature 36.8 C (98.3 F) 07/13/2024 7:58 PM CDT Respiratory Rate 20 07/13/2024 7:58 PM CDT Oxygen Saturation 96% 07/13/2024 11:00 PM CDT Inhaled Oxygen Concentration - - Weight 68.5 kg (151 lb) 07/13/2024 7:58 PM CDT Height 177.8 cm (5' 10) 07/13/2024 7:58 PM CDT Body Mass Index 21.67 07/13/2024 7:58 PM CDT Plan of Treatment Health Maintenance Due Date Last Done Comments Tetanus booster 1958 Depression screening for age 12+ 1959 Hepatitis C screening for age 18-79 1965 Pneumococcal series for age 50+ (1 of 2 - PCV) 1966 Zoster (shingles) series for age 50+ (1 of 2) 1966 DEXA/DXA scan for age 65+ 2012 Medicare Wellness for age 65+ 2012 BMI (ht and wt on same day) for age 18+ 01/25/2022 01/25/2021, 12/03/2015 RSV vaccine for adults or (1 - 1-dose 75+ series) 2022 COVID-19 vaccine series (2024- season) 2025 04/29/2024, 09/22/2023, 09/12/2022, Additional history exists Influenza Vaccine (#1) 2025 Hepatitis B series for 19+ Aged Out N o longer eligible based on patient's age to complete this topic Insurance MEDICARE PART B HB ONLY [employer]OM MR PB HUMANA CHOICE PPO MR MR [employer] Advance Directives Documents on File Type Date Recorded Patient Equipment Mechanic Specialist Expl anation Healthcare Directive 05/12/2009 12:00 AM A DVANCED DIRECTIVE Care Teams Windshield Wiper Repairer Relationship Specialty Start Date End Date Jay Guzman MBBS [address] [place] [address] [phone] PCP - General Family Practice 2/28/21
--- OUTSIDE RECORDS SUMMARY | 2025-08-29 16:39 | XMS_ITS | Encounter Summary ---
Author Organization [facility] Address [address] [place] [address] Care Team Providers Care Supervisor Poultry Hatchery Name Role Phone Jay Guzman M.D. Primary Care [facility] Reason for Visit * Reason Onset Date Comments Echo Move Up Request 08/23/2025 Surgical Encounter Details Date Type Department Care Team (Latest Contact Info) Description 08/23/2025 Clinical Communication Department of Cardiovascular Medicine in [place], [place] [address] [place] [address] Ict TeacherCarl M.D. Echo Move Up Request (Surgical ) Social History Tobacco Use Types Packs/Day Years Used Date Smoking Tobacco: Never Passive Smoke Exposure: Past Smokeless Tobacco: Never Comments:Father smoked until 1956 Alcohol Use Standard Drinks/Week Comments Not Currently 0 (1 standard drink = 0.6 oz pure alcohol) Not used since 1976 - rastafarian reasons Humiliation, Afraid, Rape, and Kick questionnair [...] things needed for daily living? No 07/14/2025 [facility] Utilities Answer Date Recorded In the past 12 months has th e electric, gas, oil, or water company threatened to shut off services in your home? No 07/14/2025 Depression Answer Date Recor ded PHQ-9 Total Score (max 27) 0 12/02 Housing Stability Answer Date Recorded What is your living situation today? I have a [facility] place to live 07/14/2025 Education Answer Date Recorded What is the highest level of school you have completed or the highest degree you have received? 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 AM MOULDER OPERATOR Gender Identity Female 08/18/2021 8:27 PM CDT Sexual Orientation Not on file Occupation Industry Job Start Date Job End Date [employer] Not on file Not on file Not on file Not on file Not on file Not on file Not on file documented as of this encounter Miscellaneous Notes * Telephone Encounter - Vijay Jordan - 08/23/2025 3:25 PM CDT called pt & confirmed echo * Telephone Encounter - Ginger Tate - 08/23/2025 11:15 AM CDT ECHO MOVE UP REQUEST If there is any additional information please add it to the bottom. (I.E. provider request, nursingrequest, etc.) Appt Type: SURGICAL : Date: 08/24/25 6:30 am or 7:50 am When does the provider see (date and time)?: 08/24/25 at 10 AM Are there times that do not work for pt?: No Is testing flexible to accommodate the echo?: Yes Pool for replies: P RST CVD HRS SCHEDULING documented in this encounter Plan of Treatment Upcoming Encounters Date Type Department Care Team (Latest Contact Info) Description 08/30/2025 10:30 AM CDT Hospital Encounter Division of Cardiovascular Diseases in [address] [phone] Perry Lozano M.D., M.P.H. [address] [place] [phone] Atrial Fibrillation Permanent (HCC) 08/30/2025 11:46 AM CDT - 08/30/2025 2:26 PM CDT Surgery Division of Cardiovascular Diseases in [address] [phone] Perry Lozano M.D., M.P.H. [address] [place] [phone] PPM IMPLANT 08/31/2025 4:25 PM CDT Hospital Encounter Division of Cardiovascular Diseases in [address] [phone] Alo Mehta M.D., M.B.A. [address] [place] [phone] Atrial Fibrillation Longstanding Persistent (HCC) 08/31/2025 4:25 PM CDT - 08/31/2025 6:20 PM CDT Surgery Division of Cardiovascular Diseases in [address] [phone] Alo Mehta M.D., M.B.A. [address] [place] [address] ABLATION - AV NODE 10/24/2025 1:00 PM MOULDER OPERATOR Appointment Department of Cardiovascular Diseases in [place], [place] [address] [place] [phone] Jorge Ordaz M.D. [address] [place] [address] documented as of this encounter Visit Diagnoses Not on filedocumented in this encounter Additional Health Concerns Assessment Noted Time PHQ-9 Depression Total Score: 0 12/02/19 25 3:00 PM MOULDER OPERATOR A fall risk assessment has been complete d for the patient 09/12/2022 10:09 AM CDT documented as of this encounter Care Teams Supervisor Poultry Hatchery Relationship Specialty Start Date End Date Jay Guzman M.B.B.S., MShant. [address] [place] [phone] PCP - General Family Medicine 09/20/20 documented as of this encounter
--- OUTSIDE RECORDS SUMMARY | 2025-08-29 16:41 | XMS_ITS | Continuity of Care Document ---
Author Organization [facility] Address [address] [place] [address] Care Team Providers Care Wagon Washer Name Role Phone Jay Guzman M.D. Primary Care [facility] Source Comments Patient records contain information from all sites at [facility]. For routine questions regarding patient records, call [phone] during business hours, M-F 8:00 AM - 5:00 PM Central Time. Record requests for emergency care only can be directed to [phone] at any time.[facility] Encounters Date Type Department Care Team Description 5 2:39 PM CDT Hospital Encounter Department of Radiology in [place], [place] [address] [place] [address] Jay Guzman M.B.B.S., MShant. [facility] 5 6:12 AM CDT - 5 8:19 AM CDT Hospital Encounter Department of Cardiovascular Diseases in [place], [place] [address] [place] [address] Perry Lozano M.D., M.P.H. Atrial Fibrillation Longstanding Persistent (HCC) Discharge Disposition: Home or Self Care 5 8:41 AM CDT - 5 11:59 PM CDT Hospital Encounter Department of Radiology, [facility], in [place], [place] [address] [place] [address] Perry Lozano M.D., M.P.H. Atrial Fibrillation Longstanding Persistent (HCC) Discharge Disposition: Home or Self Care 5 8:20 AM CDT - 5 8:40 AM CDT Hospital Encounter Department of Laboratory Medicine and Pathology, [facility], in [place], [place] [address] [place] [address] Perry Lozano M.D., M.P.H. Atrial Fibrillation Longstanding Persistent (HCC) Discharge Disposition: Home or Self Care 5 10:00 AM CDT Office Visit Department of Cardiovascular Medicine in [place], [place] [address] [place] [phone] Jamar Gan M.D. Atrial Fibrillation Longstanding Persistent (HCC) (Primary Dx) 5 Clinical Communication Department of Cardiovascular Medicine in [place], [place] [address] [place] [phone] Base EngineerCarl M.D. Echo Move Up Request (Surgical ) 5 3:00 PM CDT Office Visit Department of Family Medicine, [facility], in [place], [place] [address] [place] [phone] Jay Guzman M.B.B.S., Leonarda Atrial Fibrillation Longstanding Persistent (HCC) (Primary Dx) 5 Orders Only Department of Cardiovascular Medicine in [place], [place] [address] [place] [address] Perry Lozano M.D., M.P.H. Atrial Fibrillation Permanent (HCC) (Primary Dx) 5 11:00 AM CDT Comprehensive Visit Department of Family Medicine, [facility], in [place], [place] [address] [place] [address] Sujatha Staples, FRANCIS, C.N.P. Nevi Multiple (Primary Dx); Screening Examination Skin Cancer; Keratosis Seborrheic; Angioma Castro; Dermatoheliosis 5 9:30 AM CDT Office Visit Department of Cardiovascular Diseases in [address] [address] Jorge Ordaz M.D. Atrial Fibrillation Longstanding Persistent (HCC) (Primary Dx); Regurgitation Mitral 5 8:46 AM CDT - 5 11:59 PM CDT Hospital Encounter Department of Laboratory Medicine in [address] [address] Jorge Ordaz M.D. Atrial Fibrillation Other Persistent (HCC) Discharge Disposition: Home or Self Care 5 Orders Only Department of Family Medicine, [facility], in [address] [address] Keyana Lara M.D. 5 9:20 AM CDT Office Visit Department of Family Medicine, [facility], in [address] [address] Keyana Lara M.D. Onychogryphosis (Primary Dx); Onychomycosis; Bite Thigh Insect Subsequent Left; History Of Falling; Atrial Fibrillation Unspecified (HCC); Hypertensive Heart Disease Without Heart Failure 5 Ancillary Procedure Department of Ophthalmology 5 10:15 AM CDT Office Visit Department of Ophthalmology in [place], [place] [address] [place] [address] Sam Manning M.D. 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 Atrial Fibrillation Longstanding Persistent (HCC); Atrial Fibrillation Unspecified (HCC) Discharge Disposition: Home or Self Care 5 3:00 PM CDT Office Visit Department of Cardiovascular Medicine in [place], [place] [address] [place] [phone] Perry Lozano M.D., M.P.H. Atrial Fibrillation Longstanding Persistent (HCC); Atrial Fibrillation Unspecified (HCC) 5 8:45 AM DRY HOUSE ATTENDANT Clinical Communication Virtual Review in [place], [place] [address] [place] [address] Pre-visit Intake 5 Orders Only Department of Dermatology in [place], [place] [address] [place] [phone] Pita Nelson M.D. Abnormal Uterine And Vaginal Bleeding Unspecified (Primary Dx) 5 Orders Only Department of Dermatology in [place], [place] [address] [place] [phone] Pita Nelson M.D. 5 Clinical Communication Department of Cardiovascular Medicine in [place], [place] [address] [place] [phone] Félix Burrell, Zoë 5 12:05 AM DRY HOUSE ATTENDANT Ancillary Procedure Department of Dermatology 5 Ancillary Procedure Department of Ophthalmology 5 4:00 PM DRY HOUSE ATTENDANT Comprehensive Visit Department of Dermatology in [place], [place] [address] [place] [address] Pita Nelson M.D. Dermatitis Hand (Primary Dx); Lichen Sclerosus; Purpura Simplex (HCC) 5 10:30 AM DRY HOUSE ATTENDANT Office Visit Department of Ophthalmology in [place], [place] [address] [place] [phone] Sam Manning M.D. 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 Echo Move Up Request 5 Ancillary Procedure Department of Ophthalmology 5 9:20 AM DRY HOUSE ATTENDANT Ancillary Procedure Department of Ophthalmology 5 10:15 AM DRY HOUSE ATTENDANT Procedure visit Department of Ophthalmology in [place], [place] [address] [place] [phone] Sam Manning M.D. Xu, Timothy T, M.D. 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 Atrial Fibrillation Other Persistent (HCC) (Primary Dx) 5 Clinical Communication Division of Colon and Rectal Surgery in [place], [place] [address] [place] [phone] Carlos Ross P.A.-C., M.S. 5 11:15 AM DRY HOUSE ATTENDANT Ancillary Procedure Department of Colon and Rectal 5 Orders Only Division of Colon and Rectal Surgery in [place], [place] [address] [place] [phone] Carlos Ross P.A.-C., M.S. Lichen Sclerosus (Primary Dx) 5 11:30 AM DRY HOUSE ATTENDANT Office Visit Department of Orthopedic Surgery in [place], [place] [address] [place] [address] Maggy Palomino APRN, C.N.Shital., Tyra.N.P. Cellulitis Hand Right (Primary Dx) 5 10:30 AM DRY HOUSE ATTENDANT Comprehensive Visit Division of Colon and Rectal Surgery in [place], [place] [address] [place] [phone] Carlos Ross P.A.-C., M.S. Lichen Sclerosus (Primary Dx); Fissure Anal 5 8:00 AM DRY HOUSE ATTENDANT Clinical Communication Virtual Review in [place], [place] [address] [place] [phone] Pre-visit Intake 5 Clinical Communication Department of Orthopedic Surgery in [place], [place] [address] [place] [phone] Alo Ragsdale D.O., M.S. Appointment 5 11:06 AM DRY HOUSE ATTENDANT - 5 11:59 PM DRY HOUSE ATTENDANT Hospital Encounter Department of Laboratory Medicine in [place], [place] [address] [place] [address] Mike Wilson P.A.-Jailyn. Atrial Fibrillation Longstanding Persistent (HCC); Atrial Fibrillation Unspecified (HCC) Discharge Disposition: Home or Self Care 5 11:30 AM DRY HOUSE ATTENDANT Office Visit Department of Family Medicine, [facility], in [place], [place] [address] [place] [address] Sadaf Pierre P.AÁlvaro Atrial Fibrillation Longstanding Persistent (HCC) (Primary Dx); Cellulitis Hand Right 5 Orders Only Department of Ophthalmology in [place], [place] [address] [place] [phone] Sam Manning M.D. 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 Post Hospital Follow-up (TCM call completed) 5 Orders Only Department of Orthopedic Surgery in [place], [place] [address] [place] [address] Maggy Palomino APRN, C.NJuan AlbertoP., D.N.P. 5 9:15 AM DRY HOUSE ATTENDANT Ancillary Procedure Department of Physical Medicine and Rehab 5 6:36 AM DRY HOUSE ATTENDANT - 5 3:13 PM DRY HOUSE ATTENDANT Hospital Encounter [facility], [facility], Fourth Floor [address] [place] [address] Perry Lozano M.D., M.P.H. Cesar Thurman M.D. Desimone, Christopher V., M.D., Ph.D. Mike Wilson, P.A.-C. Atypical Atrial Flutter (HCC) (Primary Dx); Atrial Fibrillation Longstanding Persistent (HCC); Atrial Fibrillation Unspecified (HCC); Occlusion Retinal Artery Branch Right; Pain Hand Right; Debility [R53.81]; Decline Functional Status [R53.81]; Palpitations; Cellulitis Hand Right Discharge Disposition: Home or Self Care 5 9:30 AM DRY HOUSE ATTENDANT Ancillary Procedure Department of Physical Medicine and Rehab 5 9:40 AM DRY HOUSE ATTENDANT Ancillary Procedure Department of Physical Medicine and Rehab 5 9:55 AM DRY HOUSE ATTENDANT Ancillary Procedure Department of Cardiology 5 8:00 AM DRY HOUSE ATTENDANT Ancillary Procedure Department of Internal Medicine 5 1:05 PM DRY HOUSE ATTENDANT Ancillary Procedure Department of Internal Medicine 5 Clinical Communication Department of Cardiovascular Medicine in [place], [place] [address] [place] [address] Mike Wilson, P.A.-C. 5 Clinical Communication Department of Cardiovascular Medicine in [place], [place] [address] [place] [address] Base EngineerCarl M.D. Appointment 5 6:25 PM DRY HOUSE ATTENDANT Ancillary Procedure Department of Cardiology 5 Ophth Exam Department of Ophthalmology in [place], [place] [address] [place] [address] Sam Manning M.D. 5 Orders Only Department of Cardiovascular Medicine in [place], [place] [address] [place] [address] Perry Lozano M.D., M.P.H. 5 Clinical Communication Department of Cardiovascular Medicine in [place], [place] [address] [place] [address] Mike Wilson, P.A.-Jailyn. 5 7:45 AM DRY HOUSE ATTENDANT - 5 11:40 AM DRY HOUSE ATTENDANT Surgery Division of Cardiovascular Diseases in [place], [place] [address] [place] [phone] Perry Lozano M.D., M.P.H. ABLATION - PVI 5 8:25 AM DRY HOUSE ATTENDANT Anesthesia Event Division of Cardiovascular Diseases in [place], [place] [address] [place] [phone] Robbie Miramontes APRN, GEO, DNAP 5 9:05 AM DRY HOUSE ATTENDANT - 5 1:10 PM DRY HOUSE ATTENDANT Hospital Encounter Department of Radiology, [place], [place] [address] [place] [address] Perry Lozano M.D., M.P.H. Atrial Fibrillation Longstanding Persistent (HCC) Discharge Disposition: Home or Self Care 5 1:11 PM DRY HOUSE ATTENDANT - 5 11:59 PM DRY HOUSE ATTENDANT Hospital Encounter Department of Laboratory Medicine and Pathology, [facility] in [place], [place] [address] [place] [address] Perry Lozano M.D., M.P.H. Atrial Fibrillation Longstanding Persistent (HCC) Discharge Disposition: Home or Self Care 5 3:00 PM DRY HOUSE ATTENDANT Office Visit Department of Cardiovascular Medicine in [place], [place] [address] [place] [address] Zenia Wright APRN, C.N.P., M.S.N. Atrial Fibrillation Other Persistent (HCC) (Primary Dx); Hyperlipidemia; Elevated Blood Pressure; Cardiomyopathy (HCC); Finding Cardiac Echocardiogram Enlarged Atrium Left; Repair Tricuspid Valve Status Post; Repair Mitral Valve Status Post; Anticoagulant Therapy 5 8:30 AM DRY HOUSE ATTENDANT Clinical Communication Virtual Review in [place], [place] [address] [place] [address] Pre-visit Intake 5 Orders Only [facility] Jay Guzman M.B.BJuan AlbertoSJuan Alberto, M.Tyra. 4 Community Orders [facility] [address] [place] [phone] Luke Galvan M.D. Fissure Anal (Primary Dx) 4 Clinical Communication Department of Cardiovascular Medicine in [place], [place] [address] [place] [phone] Daija Goldman, Zoë 4 Orders Only Department of Cardiovascular Medicine in [place], [place] [address] [place] [phone] Perry Lozano M.D., M.P.H. 4 8:15 AM CDT Office Visit Department of Cardiovascular Diseases in [address] [address] Jorge Ordaz M.D. Palpitations (Primary Dx) 4 1:10 PM CDT - 4 11:59 PM CDT Hospital Encounter Department of Laboratory Medicine in [address] [address] Perry Lozano M.D., M.P.H. Palpitations; Atrial Fibrillation Longstanding Persistent (HCC) Discharge Disposition: Home or Self Care 4 12:40 PM CDT Virtual Visit Division of Gastroenterology in [place], [place] [address] [place] [address] Saad Doe M.B.B.SJuan Alberto Diarrhea Functional (Primary Dx) 4 9:46 AM CDT - 4 11:59 PM CDT Hospital Encounter Department of Cardiovascular Diseases in [place], [place] [address] [place] [address] Jorge Ordaz M.D. Abnormal Echocardiogram Discharge Disposition: Home or Self Care 4 2:11 PM CDT - 4 11:59 PM CDT Hospital Encounter Department of Laboratory Medicine and Pathology, [place], [place] [address] [place] [address] Saad Doe M.B.B.SJuan Alberto Diarrhea Discharge Disposition: Home or Self Care 4 1:10 PM CDT Comprehensive Visit Division of Gastroenterology in [place], [place] [address] [place] [phone] Jay Guzman M.B.B.S., Saad Burrell M.B.B.SJuan Alberto Diarrhea (Primary Dx); Colitis Collagenous; Diarrhea Functional 4 8:30 AM CDT Clinical Communication Virtual Review in [place], [place] [address] [place] [address] 4 2:00 PM CDT Telemedicine Department of Sleep Medicine in [place], [place] [address] [place] [address] Abhinav Todd M.D. Obstructive Sleep Apnea Adult (Primary Dx) Discharge Disposition: Home or Self Care 4 9:50 AM CDT - 4 11:59 PM CDT Hospital Encounter Department of Laboratory Medicine and Pathology, [place], [place] [address] [place] [address] Jennifer Resendez P.A.-C., M.P.H. Atrial Fibrillation Longstanding Persistent (HCC) Discharge Disposition: Home or Self Care 4 11:30 AM CDT Office Visit Department of Cardiovascular Medicine in [place], [place] [address] [place] [address] Perry Lozano M.D., M.P.H. Atrial Fibrillation Longstanding Persistent (HCC) 4 3:00 PM CDT Office Visit Department of Family Medicine, [facility], in [address] [address] Jay Guzman M.B.B.S., M.D. Diarrhea Functional (Primary Dx); Atrial Fibrillation Longstanding Persistent (HCC) 4 9:45 AM CDT Clinical Communication Virtual Review in [place], [place] [address] [place] [address] Pre-visit Intake 4 6:00 AM CDT - 4 11:59 PM CDT Hospital Encounter Department of Pulmonary Medicine in [place], [place] [address] [place] [address] Abhinav Todd M.D. Sleep Apnea; Apnea Sleep Obstructive Discharge Disposition: Home or Self Care 4 8:25 AM CDT - 4 11:59 PM CDT Hospital Encounter Department of Laboratory Medicine in [address] [address] Jorge Ordaz M.D. Abnormal Echocardiogram; Atrial Fibrillation Longstanding Persistent (HCC); High Risk Medication Discharge Disposition: Home or Self Care 4 4:18 PM CDT - 4 11:59 PM CDT Hospital Encounter Department of Laboratory Medicine in [address] [address] Jorge Ordaz M.D. High Risk Medication; Atrial Fibrillation Longstanding Persistent (HCC) Discharge Disposition: Home or Self Care 4 1:00 PM CDT Telemedicine Department of Sleep Medicine in [place], [place] [address] [place] [address] Abhinav Todd M.D. Apnea Sleep Obstructive (Primary Dx); Sleep Apnea Discharge Disposition: Home or Self Care 4 Clinical Communication Department of Cardiovascular Diseases in [place], [place] [address] [place] [address] Jorge Ordaz M.D. 4 8:03 AM CDT - 4 11:59 PM CDT Hospital Encounter Department of Laboratory Medicine in [place], [place] [address] [place] [address] Jorge Ordaz M.D. Atrial Fibrillation Longstanding Persistent (HCC); Regurgitation Mitral; Dilated Aortic Root (HCC) Discharge Disposition: Home or Self Care 4 9:15 AM CDT Office Visit Department of Cardiovascular Diseases in [address] [address] Jorge Ordaz M.D. Abnormal Echocardiogram (Primary Dx); Atrial Fibrillation Longstanding Persistent (HCC); High Risk Medication 4 Clinical Communication Department of Sleep Medicine in [place], [place] [address] [place] [address] Abhinav Todd M.D. 4 8:40 AM CDT - 4 11:59 PM CDT Hospital Encounter Department of Laboratory Medicine in [place], [place] [address] [place] [address] Jennifer Resendez P.A.-C., M.P.H. Atrial Fibrillation Longstanding Persistent (HCC) Discharge Disposition: Home or Self Care 4 10:00 AM CDT Office Visit Department of Family Medicine, [facility], in [place], [place] [address] [place] [address] Jay Guzman M.B.B.S., M.D. Atrial Fibrillation Longstanding Persistent (HCC) (Primary Dx); Chronic Diastolic (Congestive) Heart Failure (HCC) 4 Clinical Communication Department of Family Medicine, [facility], [place], [place] [address] [place] [address] Karla Walker R.N. Post Hospital Follow-up 4 Clinical Communication Department of Family Medicine, [facility], in [place], [place] [address] [place] [address] Jay Guzman M.B.B.S., MPaulie 4 6:14 AM CDT - 4 4:22 PM CDT Hospital Encounter [facility], [facility], Third Floor [address] [place] [phone] Perry Lozano M.D., M.P.H. Cesar Thurman M.D. Kowlgi, Narayan G, M.B.BPipo., M.S. Atrial Fibrillation Longstanding Persistent (HCC) Discharge Disposition: Home or Self Care 4 2:57 PM CDT Anesthesia Event Department of Cardiovascular Disease [address] [place] [address] Drew Blanton, FRANCIS, LOCKSTITCH BINDER, Maria Del Carmen Ho APRN, LOCKSTITCH BINDER 4 Clinical Communication Department of Cardiovascular Medicine in [place], [place] [address] [place] [phone] Jennifer Resendez P.A.-C., M.P.H. 4 Orders Only Department of Cardiovascular Medicine in [place], [place] [address] [place] [phone] Perry Lozano M.D., M.P.H. 4 10:43 AM CDT - 4 11:59 PM CDT Hospital Encounter Department of Cardiovascular Diseases in [address] [address] Jorge Ordaz M.D. Atrial Fibrillation Longstanding Persistent (HCC) Discharge Disposition: Home or Self Care 4 Orders Only Department of Sleep Medicine in [place], [place] [address] [place] [address] Janae Medina L.P.N. Snoring Primary (Primary Dx) 4 8:12 AM CDT - 4 11:59 PM CDT Hospital Encounter Department of Laboratory Medicine in [address] [address] Perry Lozano M.D., M.P.H. Palpitations Discharge Disposition: Home or Self Care 4 10:00 AM CDT Comprehensive Visit Department of Cardiovascular Medicine in [place], [place] [address] [place] [address] Perry Lozano M.D., M.P.H. Palpitations (Primary Dx); Atrial Fibrillation Longstanding Persistent (HCC); Repair Tricuspid Valve Status Post; Repair Mitral Valve Status Post 4 8:15 AM CDT Clinical Communication Virtual Review in [place], [place] [address] [place] [address] Pre-visit Intake 4 8:51 AM CDT - 4 11:59 PM CDT Hospital Encounter Department of Laboratory Medicine in [address] [address] Jorge Ordaz M.D. Atrial Fibrillation Longstanding Persistent (HCC) Discharge Disposition: Home or Self Care 4 8:51 AM CDT Hospital Encounter Department of Laboratory Medicine in [address] [address] Jorge Ordaz M.D. Atrial Fibrillation Longstanding Persistent (HCC) Discharge Disposition: Home or Self Care 4 8:40 AM CDT - 4 8:50 AM CDT Hospital Encounter Department of Radiology in [address] [address] Jorge Ordaz M.D. Atrial Fibrillation Longstanding Persistent (HCC) Discharge Disposition: Home or Self Care 4 8:38 AM CDT - 4 11:59 PM CDT Hospital Encounter Department of Cardiovascular Diseases in [address] [address] Jorge Ordaz M.D. Atrial Fibrillation Longstanding Persistent (HCC) Discharge Disposition: Home or Self Care 4 10:15 AM CDT Ancillary Procedure Department of Dermatology 4 11:30 AM CDT Comprehensive Visit Department of Family Medicine, [facility], in [place], [place] [address] [place] [phone] Christina Pyle M.D. Screening Examination Skin Cancer (Primary Dx); Tumor Skin Uncertain Behavior; Keratosis Actinic 4 11:00 AM DRY HOUSE ATTENDANT [facility] [address] [address] Jay Guzman M.B.B.SJuan Alberto, MPaulie Osteoporosis (Primary Dx) 4 1:48 PM DRY HOUSE ATTENDANT - 4 11:59 PM DRY HOUSE ATTENDANT Hospital Encounter Department of Radiology in [place], [place] [address] [place] [phone] Jay Guzman M.B.B.SJuan Alberto, MPaulie Osteoporosis Discharge Disposition: Home or Self Care 4 8:30 AM DRY HOUSE ATTENDANT Office Visit Department of Family Medicine, [facility], in [address] [address] Amanda Higgins APRN, C.N.P., D.N.PJuan Alberto Lesion Skin Face (Primary Dx); Keratosis 4 Nurse Triage Department of [facility], [facility], in [address] [address] Sandra Strong R.N. Nurse Assessment 4 3:09 PM DRY HOUSE ATTENDANT - 4 11:59 PM DRY HOUSE ATTENDANT Hospital Encounter Department of Radiology in [address] [address] Jay Guzman M.B.BJuan AlbertoSLeonarda Avendano Osteoporosis Discharge Disposition: Home or Self Care 4 2:59 PM DRY HOUSE ATTENDANT - 4 3:08 PM DRY HOUSE ATTENDANT Hospital Encounter Department of Laboratory Medicine in [address] [address] Jay Guzman M.BJuan AlbertoB.SJuan Alberto, Leonarda Osteoporosis Discharge Disposition: Home or Self Care 4 2:00 PM DRY HOUSE ATTENDANT Comprehensive Visit Department of [facility], in [address] [address] Jay Guzman M.BJuan AlbertoBJuan AlbertoSJuan Alberto, Leonarda Osteoporosis (Primary Dx); Chronic Diastolic (Congestive) Heart Failure (HCC); Atrial Fibrillation Longstanding Persistent (HCC); History Of Falling 3 2:00 PM DRY HOUSE ATTENDANT - 3 11:59 PM DRY HOUSE ATTENDANT Hospital Encounter Department of Radiology in [address] [address] Jay Guzman M.BJuan AlbertoBJuan AlbertoSJuan Alberto, MPaulie Screening Mammogram Breast Cancer Discharge Disposition: Home or Self Care 3 8:40 AM DRY HOUSE ATTENDANT Immunization Department of [facility], [facility], in [address] [address] 3 Clinical Communication Department of Family [facility], [facility], in [place], [place] [address] [place] [address] Jay Guzman M.B.B.S., M.D. Order Request 3 12:18 PM CDT - 3 11:59 PM CDT Hospital Encounter Department of Laboratory Medicine in [place], [place] [address] [place] [address] Sadaf Pierre P.A.-CJuan Alberto Insect Bite (Includes Tick) Nonvenomous Right Lower Leg Subsequent Discharge Disposition: Home or Self Care 3 12:00 PM CDT Office Visit Department of [facility], in [place], [place] [address] [place] [address] Sadaf Pierre P.A.-CJuan Alebrto Insect Bite (Includes Tick) Nonvenomous Right Lower Leg Subsequent (Primary Dx) 3 9:45 AM CDT Office Visit Department of Cardiovascular Diseases in [place], [place] [address] [address] Jorge Ordaz M.D. Atrial Fibrillation Longstanding Persistent (HCC) (Primary Dx); Regurgitation Mitral; Dilated Aortic Root (HCC) 3 9:38 AM CDT - 3 11:59 PM CDT Hospital Encounter Department of Cardiovascular Diseases in [place], [place] [address] [place] [address] Joreg Ordaz M.D. Atrial Fibrillation Longstanding Persistent (HCC); Regurgitation Mitral; Shortness Of Breath Discharge Disposition: Home or Self Care 3 Orders Only [facility] Jay Guzman M.B.B.S., M.D. 3 3:00 PM CDT Office Visit Department of Family [facility], [place], [place] [address] [place] [address] Keyana Lara M.D. Bite Leg Insect Initial Left (Primary Dx); Insect Bite Back Initial Right; Insect Bite (Includes Tick) Nonvenomous Abdominal Wall Initial 3 10:38 AM CDT - 3 11:59 PM CDT Hospital Encounter Department of Cardiovascular Diseases in [address] [address] Jorge Ordaz M.D. Palpitations; Atrial Fibrillation Longstanding Persistent (HCC) Discharge Disposition: Home or Self Care 3 11:00 AM CDT Office Visit Department of Family Medicine, [facility], in [address] [address] Jay Guzman M.B.B.S., M.D. Chronic Diastolic (Congestive) Heart Failure (HCC); Atrial Fibrillation Longstanding Persistent (HCC); History Of Falling 3 4:12 PM CDT - 3 11:59 PM CDT Hospital Encounter Department of Laboratory Medicine in [address] [address] Jorge Ordaz M.D. Palpitations; Atrial Fibrillation Longstanding Persistent (HCC) Discharge Disposition: Home or Self Care 3 4:11 PM CDT Hospital Encounter Department of Laboratory Medicine in [address] [address] Jorge Ordaz M.D. Palpitations; Atrial Fibrillation Longstanding Persistent (HCC) Discharge Disposition: Home or Self Care 3 Clinical Communication Department of Cardiovascular Diseases in [place] [address] [place] [address] Jorge Ordaz M.D. 3 3:10 PM DRY HOUSE ATTENDANT - 3 11:59 PM DRY HOUSE ATTENDANT Hospital Encounter Department of Laboratory Medicine in [address] [address] Jay Guzman M.B.B.S., M.D. Hyperlipidemia Discharge Disposition: Home or Self Care 3 Orders Only [facility] Jay Guzman M.B.B.S., M.D. Hyperlipidemia 2 10:27 AM CDT - 2 11:59 PM CDT Hospital Encounter Department of Radiology in [address] [address] Jay Guzman M.B.B.S., M.D. Pain Hand Left Discharge Disposition: Home or Self Care 2 10:00 AM CDT Office Visit Department of Family [facility], [facility], in [address] [address] Jay Guzman M.B.B.S., M.D. Pain Hand Left (Primary Dx); History Of Falling 2 Nurse Triage Department of [facility], in [address] [address] Yamini Armenta R.N. Hand Pain 2 9:34 AM CDT - 2 11:59 PM CDT Hospital Encounter Department of Laboratory Medicine in [address] [address] Jorge Ordaz M.D. Atrial Fibrillation Longstanding Persistent (HCC) Discharge Disposition: Home or Self Care 2 9:00 AM CDT Office Visit Department of Cardiovascular Diseases in [address] [address] Jorge Ordaz M.D. Atrial Fibrillation Longstanding Persistent (HCC) (Primary Dx) 2 Nurse Triage Department of [facility], in [address] [address] Zaida Muñoz R.N. COVID Nurse Line 2 Orders Only [facility] P[facility] Jay Guzman M.B.BCari, Leonarda Screening Mammogram Breast Cancer 2 Clinical Communication Pharmacy Prior Auth RO [phone] Aixa Clark 2 Orders Only Pharmacy Prior Auth RO [phone] Manisha Fields 2 Documentation Division of Gastroenterology in [place], [place] [address] [place] [address] Ryan Portillo M.D. 2 10:25 AM CDT Ancillary Procedure Department of Gastroenterology 2 9:32 AM CDT - 2 11:59 PM CDT Hospital Encounter Division of Gastroenterology in [place], [place] [address] [place] [address] Ryan Portillo M.D. Diarrhea Discharge Disposition: Home or Self Care 2 Clinical Communication Department of Family [facility], [facility], in [place], [place] [address] [place] [address] Jay Guzman M.B.B.SJuan Alberto, Leonarda 2 8:50 AM CDT Comprehensive Visit Division of Gastroenterology in [place], [place] [address] [place] [address] Jay Guzman M.RylandB.SJuan Alberto, M.Ryan Downey M.D. Diarrhea (Primary Dx) 2 9:45 AM CDT Clinical Communication Virtual Review in [place], [place] [address] [place] [address] Pre-visit Intake 2 9:50 AM CDT - 2 11:59 PM CDT Hospital Encounter Department of Laboratory Medicine in [place], [place] [address] [place] [address] Keyana Lara M.D. Discharge Disposition: Home or Self Care 2 4:26 PM CDT - 2 11:59 PM CDT Hospital Encounter Department of Laboratory Medicine in [place], [place] [address] [place] [address] Keyana Lara M.D. Diarrhea Discharge Disposition: Home or Self Care 2 4:26 PM CDT - 2 11:59 PM CDT Hospital Encounter Department of Laboratory Medicine in [place], [place] [address] [place] [address] Keyana Lara M.D. Diarrhea Discharge Disposition: Home or Self Care 2 3:45 PM CDT Office Visit Department of [facility], [facility], in [address] [address] Keyana Lara M.D. Diarrhea (Primary Dx); Hypertension Essential Primary 2 Nurse Triage Department of [facility], in [place], [place] [address] [place] [address] Aye White, R.N., CLC Diarrhea 2 9:30 AM CDT Immunization Department of [facility], [facility], in [address] [address] Jay Guzman M.B.B.S., MPaulie 2 8:00 AM CDT Office Visit Department of [facility], in [address] [address] Kelly Capps M.H.S.A., R.N. Lyme Disease Personal History (Primary Dx); Chronic Diastolic (Congestive) Heart Failure (HCC) 2 Nurse Triage Department of Family Medicine, [facility], in [place], [place] [address] [place] [address] Lexie Dorantes R.N. Tick Removal 2 Orders Only [facility] Jay Guzman M.B.B.S., Leonarda 2 Clinical Communication Department of [facility], [facility], in [address] [address] Jay Guzman M.B.BCari, Leonarda Results 2 12:05 PM CDT - 2 11:59 PM CDT Hospital Encounter Department of Laboratory Medicine in [address] [phone] Jay Guzman M.BJuan AlbertoB.SJuan Alberto, Leonarda Diarrhea Discharge Disposition: Home or Self Care 2 12:05 PM CDT - 2 11:59 PM CDT Hospital Encounter Department of Radiology in [address] [address] Jay Guzman M.B.B.SJuan Alberto, Leonarda Diarrhea Discharge Disposition: Home or Self Care 2 11:30 AM CDT Office Visit Department of [facility], [facility], in [address] [address] Jay Guzman M.BJuan AlbertoBJuan AlbertoSJuan Alberto, MPaulie Diarrhea (Primary Dx) 2 Nurse Triage Department of [facility], in [address] [address] Jenni Schofield R.N. Diarrhea 2 Orders Only Pharmacy Prior Auth RO [phone] Aixa Clark 2 Orders Only Pharmacy Prior Auth RO [phone] Eulalia Schrader 2 Orders Only Pharmacy Prior Auth [phone] DionJanae hi Saulo 2 Clinical Communication Department of Cardiovascular Diseases in [address] [place] [address] Jorge Ordaz M.D. 2 Clinical Communication Department of Family Medicine, [facility], in [address] [address] Jay Guzman M.B.BJuan AlbertoSLeonarda Avendano Med Management (Communication) 2 Refill Department of Cardiovascular Diseases in [address] [place] [address] Jay Guzman M.B.BLeonarda Alcala Med Refill 2 8:20 AM DRY HOUSE ATTENDANT - 2 11:59 PM DRY HOUSE ATTENDANT Hospital Encounter Department of Laboratory Medicine in [address] [address] Jay Guzman M.B.BJuan AlbertoSLeonarda Avendano Hematuria Discharge Disposition: Home or Self Care 2 Clinical Communication Department of [facility], [address] [address] Jay Guzman M.B.BLeonarda Alcala Results 2 3:15 PM DRY HOUSE ATTENDANT - 2 11:59 PM DRY HOUSE ATTENDANT Hospital Encounter Department of Laboratory Medicine in [address] [address] Jay Guzman M.B.BJuan AlbertoSLeonarda Avendano Elevated Glucose; Hyperlipidemia Discharge Disposition: Home or Self Care 2 2:30 PM DRY HOUSE ATTENDANT Office Visit Department of Family Medicine, [facility], in [address] [place] [address] Jay Guzman M.B.B.S., M.D. Atrial Fibrillation Longstanding Persistent (HCC) (Primary Dx); Osteoporosis; Hyperlipidemia; Elevated Glucose; Hematuria 2 8:35 AM DRY HOUSE ATTENDANT - 2 11:59 PM DRY HOUSE ATTENDANT Hospital Encounter Department of Laboratory Medicine in [place], [place] [facility] [place] [address] Teodoro Pyle M.D., M.P.H. Concern Patient Cognition Function Discharge Disposition: Home or Self Care 2 8:00 AM DRY HOUSE ATTENDANT Comprehensive Visit Department of Neurology in [place], [place] [address] [address] Teodoro Pyle M.D., M.P.H. Concern Patient Cognition Function 2 10:46 AM DRY HOUSE ATTENDANT - 2 11:59 PM DRY HOUSE ATTENDANT Hospital Encounter Department of Laboratory Medicine, [facility], in [place], [place] [address] [place] [address] Moy Mena D.O. Discharge Disposition: Home or Self Care 2 1:00 PM DRY HOUSE ATTENDANT Admin Visit Department of [place], [place] [address] [place] [address] 2 External Outreach Department of Family Medicine, [place], [place] [address] [place] [address] Moy Mena D.O. Contact With And (Suspected) Exposure To COVID-19; Infection Upper Respiratory 2 Clinical Communication Division of [facility], [facility] Internal Medicine, [facility] in [place], [place] [address] [place] [address] Sandra Shahid, R.N. COVID Nurse Line 2 Clinical Communication Department of Family Medicine, [facility], in [place], [place] [address] [place] [address] Jay Guzman M.B.B.S., M.D. COVID Inquiry 1 Nurse Triage Department of [facility], [facility], in [place], [place] [address] [place] [address] Ashley Schwarz R.N. Abdominal Pain 1 Clinical Communication Division of Community Internal Medicine, [facility] in [place], [place] [address] [place] [address] Evonne Dexter R.N. 1 2:00 PM DRY HOUSE ATTENDANT Office Visit Department of [facility], [facility], in [place], [place] [address] [place] [address] Jay Guzman M.B.BLeonarda Alcala Lichen Sclerosus (Primary Dx); Chronic Diastolic (Congestive) Heart Failure (HCC); Atrial Fibrillation Longstanding Persistent (HCC); Concern Patient Cognition Function 1 12:40 PM DRY HOUSE ATTENDANT Immunization Department of [facility], [facility] in [place], [place] [address] [place] [address] Zenia King M.D. 1 Orders Only [facility] Z[facility] King M.D. 1 8:37 AM CDT - 1 11:59 PM CDT Hospital Encounter Department of Laboratory Medicine in [place], [place] [address] [place] [address] Jay Guzman M.B.BLeonarda Alcala Hyperlipidemia Discharge Disposition: Home or Self Care 1 11:00 AM CDT Office Visit Department of Cardiovascular Diseases in [address] [address] Jorge Ordaz M.D. Atrial Fibrillation Longstanding Persistent (HCC) (Primary Dx) 1 10:18 AM CDT - 1 11:59 PM CDT Hospital Encounter Department of Laboratory Medicine in [place], [place] [address] [place] [address] Jorge Ordaz M.D. Atrial Fibrillation Longstanding Persistent (HCC) Discharge Disposition: Home or Self Care 1 Orders Only [facility] M[facility] Jay Guzman M.B.B.S., M.D. Hyperlipidemia 1 10:15 AM CDT Ancillary Procedure Department of Otorhinolaryngology 1 10:10 AM CDT Ancillary Procedure Department of Otorhinolaryngology 1 11:00 AM CDT Comprehensive Visit Department of Otorhinolaryngology in [address] [address] Genna Reynoso P.A.-C. Dysphonia (Primary Dx); Cyst Laryngeal 1 Orders Only Department of Family Medicine, [facility], in [address] [address] America Son APRN, C.N.P., R.N. 1 10:20 AM CDT Admin Visit Urgent Care in [address] [phone] Preoperative Exam 1 10:20 AM CDT - 1 11:59 PM CDT Hospital Encounter Department of Radiology in [address] [address] America Son APRN, C.N.P., R.N. Screening Osteoporosis Discharge Disposition: Home or Self Care 1 10:22 AM CDT - 1 11:59 PM CDT Hospital Encounter Department of Radiology in [place], [place] [address] [place] [address] Jay Guzman M.B.B.S., M.D. Screening Mammogram Breast Cancer Discharge Disposition: Home or Self Care 1 Clinical Communication Department of Otorhinolaryngology in [place], [place] [address] [place] [address] Genna Reynoso, P.A.-C. 1 Clinical Communication Department of Otorhinolaryngology in [address] [address] Genna Reynoso, P.A.-C. 1 Orders Only [facility] Jay Guzman M.B.B.S., M.D. Screening Mammogram Breast Cancer 1 12:45 PM CDT - 1 11:59 PM CDT Hospital Encounter Department of Radiology in [address] [address] Bobby Stuart M.D. Pain Shoulder Right Discharge Disposition: Home or Self Care 1 1:15 PM CDT Office Visit Department of Orthopedic Surgery in [address] [address] Bobby Stuart M.D. Pain Shoulder Right (Primary Dx) 1 Refill Department of Cardiovascular Diseases in [place], [place] [address] [place] [address] Jorge Ordaz M.D. Med Refill 1 Clinical Communication Department of Family Medicine, [facility], in [address] [address] Angela Basurto, R.N. Results 1 1:30 PM DRY HOUSE ATTENDANT Immunization Department of Family [facility], [facility] in [address] [address] Zenia King M.D. 1 12:06 PM DRY HOUSE ATTENDANT - 1 11:59 PM DRY HOUSE ATTENDANT Hospital Encounter Department of Radiology in [place], [place] [address] [place] [address] Kelly Capps M.H.S.A., R.N. Pain Rib Discharge Disposition: Home or Self Care 1 11:30 AM DRY HOUSE ATTENDANT Office Visit Department of Family [facility], in [address] [address] Kelly Capps M.H.S.A., R.N. Encounter For Other Specified Aftercare (Primary Dx); Pain Rib; Pain Knee Left 1 Orders Only [facility] Z[facility] King M.D. 1 Orders Only [facility] P[facility] Jay Guzman M.B.BJuan AlbertoSJuan Alberto, MPaulie Screening Mammogram Breast Cancer 0 Clinical Communication Department of Family [facility], in [address] [address] Andreas Blair M.D. Communication (PCP change) 0 10:00 AM DRY HOUSE ATTENDANT Office Visit Department of [facility], in [address] [address] America Son, FRANCIS, C.N.P., R.N. Screening Osteoporosis (Primary Dx); Atrial Fibrillation Longstanding Persistent (HCC); Chronic Diastolic (Congestive) Heart Failure (HCC); Hyperlipidemia; Osteoporosis; Cyst Laryngeal; Need Vaccine Immunization Influenza 0 8:22 AM CDT - 0 11:59 PM CDT Hospital Encounter Department of Laboratory Medicine in [address] [address] Andreas Blair M.D. Screening Examination Diabetes Mellitus; Hyperlipidemia Discharge Disposition: Home or Self Care 0 Nurse Triage Department of [facility], [facility], in [place], [place] [address] [place] [address] Manisha Fernando RNazia. Throat Problem; COVID Nurse Line 0 Clinical Communication Division of [facility], [facility] Internal Medicine, [facility] in [place], [place] [address] [place] [address] [facility], R.N. COVID Nurse Line 0 Orders Only Department of [facility], [facility], in [address] [phone] America Son APRN, C.N.P., R.N. 0 Clinical Communication Department of [facility], in [place], [place] [address] [place] [address] America Son APRN, C.N.P., R.N. Pre-visit Testing Orders 0 8:58 AM CDT - 0 11:59 PM CDT Hospital Encounter Department of Laboratory Medicine in [address] [address] Jorge Ordaz M.D. Pain Chest Atypical Discharge Disposition: Home or Self Care 0 9:45 AM CDT Office Visit Department of Cardiovascular Diseases in [address] [address] Jorge Ordaz M.D. Atrial Fibrillation Longstanding Persistent (HCC) (Primary Dx) 0 Orders Only [facility] Andreas Blair M.D. Screening Mammogram Breast Cancer; Hyperlipidemia 0 Orders Only [facility] Adnreas Blair M.D. Screening Examination Diabetes Mellitus 0 3:44 PM CDT - 0 11:59 PM CDT Hospital Encounter Department of Laboratory Medicine in [address] [address] Jay Guzman M.B.B.S., M.D. Viral Syndrome Discharge Disposition: Home or Self Care 0 Clinical Communication Department of Family Medicine, [facility], in [address] [address] Andreas Blair M.D. 0 Clinical Communication Department of Cardiovascular Diseases in [place], [place] [address] [place] [address] Jorge Ordaz M.D. verapamil (communication) 0 9:45 AM CDT Virtual Visit Department of Cardiovascular Diseases in [address] [address] Jorge Ordaz M.D. Pain Chest Atypical (Primary Dx) 0 11:15 AM CDT Virtual Visit Department of Cardiovascular Medicine in [place], [place] [address] [place] [address] Chris Silva M.D., Ph.D. Atrial Fibrillation Longstanding Persistent (HCC) 0 Clinical Communication Outpatient Surgery and Procedural Admissions in [place], [place] [address] [place] [address] Becka Baez R.N. Follow-up 0 1:57 PM CDT - 0 11:59 PM CDT Hospital Encounter Department of Laboratory Medicine in [address] [address] Chris Silva M.D., Ph.D. Atrial Fibrillation Longstanding Persistent (HCC) Discharge Disposition: Home or Self Care 0 1:15 PM CDT - 0 1:56 PM CDT Hospital Encounter Department of Cardiovascular Diseases in [place], [place] [address] [place] [address] Chris Silva M.D., Ph.D. Atrial Fibrillation Longstanding Persistent (HCC) Discharge Disposition: Home or Self Care 0 Clinical Communication Department of Cardiovascular Medicine in [place], [place] [address] [place] [address] Caleb Mariee, RJuan AlbertoN. Nurse chart review 0 10:55 AM DRY HOUSE ATTENDANT - 0 11:08 AM DRY HOUSE ATTENDANT Hospital Encounter Department of Radiology in [place], [place] [address] [place] [address] Jorge Ordaz M.D. Atrial Fibrillation Longstanding Persistent (HCC) Discharge Disposition: Home or Self Care 0 11:09 AM DRY HOUSE ATTENDANT - 0 11:59 PM DRY HOUSE ATTENDANT Hospital Encounter Department of Laboratory Medicine in [address] [address] Jorge Ordaz M.D. Atrial Fibrillation Longstanding Persistent (HCC) Discharge Disposition: Home or Self Care 0 Nurse Triage Department of Family Medicine, [facility], in [place], [place] [address] [place] [address] Carly Loomis RJuan AlbertoNJuan Alberto 0 Orders Only Department of Cardiovascular Diseases in [place], [place] [address] [place] [address] Jorge Ordaz M.D. Longstanding Persistent Atrial Fibrillation (HCC) (Primary Dx) 0 Clinical Communication Department of Cardiovascular Diseases in [address] [address] Jorge Ordaz M.D. 9 1:00 PM DRY HOUSE ATTENDANT Ancillary Procedure Department of [facility], in [address] [address] Jorge Ordaz M.D. Longstanding Persistent Atrial Fibrillation (HCC) 9 9:00 AM DRY HOUSE ATTENDANT Office Visit Department of Cardiovascular Diseases in [address] [address] Jorge Ordaz M.D. Longstanding Persistent Atrial Fibrillation (HCC) (Primary Dx) 9 7:59 AM CDT - 9 11:59 PM CDT Hospital Encounter Department of Laboratory Medicine in [address] [address] Andreas Blair M.D. Monitoring For Therapeutic Drug Therapy; Hyperlipidemia; Anemia Discharge Disposition: Home or Self Care 9 Orders Only Department of [facility], in [address] [address] Andreas Blair M.D. Anemia (Primary Dx) 9 Clinical Communication Department of [facility], in [place], [place] [address] [place] [address] Andreas Blair M.D. 9 10:23 AM CDT - 9 11:59 PM CDT Hospital Encounter Department of Radiology in [place], [place] [address] [address] Andreas Blair M.D. Screening Mammogram Breast Cancer Discharge Disposition: Home or Self Care 9 Clinical Communication Department of [facility], in [place], [place] [address] [place] [address] Mago Hogue M.S.N., R.N. Medicare Annual Wellness Visit Subsequent 9 Orders Only [facility] Andreas Blair M.D. Monitoring For Therapeutic Drug Therapy; Hyperlipidemia 9 12:26 PM CDT - 9 11:59 PM CDT Hospital Encounter Department of Cardiovascular Diseases in [address], [place] [address] Jorge Ordaz M.D. Pain Chest Discharge Disposition: Home or Self Care 9 7:45 AM CDT Office Visit Department of Cardiovascular Diseases [address] [address] Jorge Ordaz M.D. Persistent Atrial Fibrillation (Primary Dx); Pain Chest 9 Clinical Communication Department of Cardiovascular Diseases in [place], [place] [address] [place] [address] Jorge Ordaz M.D. 9 Orders Only Department of Family Medicine, [facility], in [address] [address] Andreas Blair M.D. 9 1:15 PM CDT Office Visit Department of Family Medicine, [facility], in [place], [place] [address] [place] [address] Andreas Blair M.D. Cellulitis Toe Right (Primary Dx) 9 Clinical Communication Department of Family Medicine, [facility], in [place], [place] [address], [place] [address] Andreas Blair M.D. Ophthalmologist recommendation 9 Nurse Triage Department of Family [facility], [facility], in [place], [place] [address] [place] [address] Diana Winslow, Zoë 9 Orders Only Department of [facility], [facility], in [address] [address] Phuong Goldman 8 Clinical Communication Department of [facility], [facility], in [place], [place] [address] [place] [address] Gena Etienne L.P.N. 8 Refill Department of Cardiovascular Diseases [address] [address] Jorge Ordaz M.D. Med Refill 8 9:15 AM DRY HOUSE ATTENDANT Office Visit Department of [facility], [facility], in [address] [address] Andreas Blair M.D. Preoperative Exam (Primary Dx); General Medical Examination Adult 8 2:45 PM DRY HOUSE ATTENDANT Office Visit Department of [facility], in [address] [address] Andreas Blair M.D. Bronchitis (Primary Dx); Fracture Rib One Sequela Right; Painful Sternal Wire Subsequent 8 3:31 PM CDT - 8 11:59 PM CDT Hospital Encounter Department of Radiology in [address] [address] Reyna Gaitan APRN, C.N.P. Fracture Rib One Sequela Right Discharge Disposition: Home or Self Care 8 3:30 PM CDT Office Visit Department of Community Internal Medicine in [place], [place] [address] [place] [address] Reyna Gaitan APRN, C.N.P. Fracture Rib One Sequela Right (Primary Dx) 8 Clinical Communication Department of Community Internal Medicine in [place], [place] [address] [place] [address] Reyna Gaitan APRN C.N.P. 8 3:49 PM CDT - 8 11:59 PM CDT Hospital Encounter Department of Radiology in [place], [place] [address] [place] [address] Reyna Gaitan APRN C.N.P. Pain Pleuritic Chest Discharge Disposition: Home or Self Care 8 3:30 PM CDT Office Visit Department of Community Internal Medicine in [place], [place] [address] [place] [address] Reyna Gaitan APRN C.N.P. Pain Pleuritic Chest (Primary Dx); Injury Chest Wall Initial 8 Nurse Triage Department of Family Medicine, [facility], in [place], [place] [address] [place] [address] Sarah Sánchez R.N. 8 2:42 PM CDT - 8 11:59 PM CDT Hospital Encounter Department of Radiology in [place], [place] [address], [place] [address] Andreas Blair M.D. Screening Osteoporosis Discharge Disposition: Home or Self Care 8 Clinical Communication Department of Family Medicine, [facility], in [place], [place] [address] [place] [address] Daija Betancourt R.N. Medicare Annual Wellness Visit Initial 8 10:05 AM CDT Ancillary Procedure Department of Otorhinolaryngology 8 9:45 AM CDT Comprehensive Visit Department of Otorhinolaryngology in [place], [place] [address] [place] [address] Beau Back M.D. Cyst Vocal Cord 8 Orders Only Department of Otorhinolaryngology in [place], [place] [address], [place] [address] Genna Reynoso P.A.-C. Cyst Vocal Cord (Primary Dx) 8 8:50 AM CDT - 8 11:59 PM CDT Hospital Encounter Department of Laboratory Medicine in [address] [address] Andreas Blair M.D. Hyperlipidemia Discharge Disposition: Home or Self Care 8 Clinical Communication Department of [facility], [facility], in [address] [address] Marcos Westbrook M.D. 8 9:30 AM CDT Office Visit Department of Cardiovascular Diseases in [address] [address] Jorge Ordaz M.D. Persistent Atrial Fibrillation (Primary Dx) 8 4:15 PM CDT Comprehensive Visit Department of Otorhinolaryngology in [place], [place] [address] [place] [address] Marcos Westbrook M.D. Cyst Laryngeal (Primary Dx); Hoarseness; Dysphonia; Drip Post Nasal; Cough Chronic 8 10:00 AM CDT Comprehensive Visit Breast Diagnostic Clinic in [place], [place] [address] [place] [address] Haven Baig M.D. Satisfactory Breast Exam (Primary Dx); Pain Breast 8 11:15 AM CDT Office Visit Department of Family Medicine, [facility], in [address] [address] Andreas Blair M.D. Lesion Skin Chest (Primary Dx) 8 Clinical Communication Department of [facility], [facility], in [address] [place] [address] Andreas Blair M.D. 8 11:57 AM CDT - 8 11:59 PM CDT Hospital Encounter Department of Radiology in [address] [address] Andreas Blair M.D. Hoarseness Discharge Disposition: Home or Self Care 8 10:15 AM CDT Office Visit Department of [facility], in [address] [address] Andreas Blair M.D. Hoarseness (Primary Dx); Pain Breast; Screening Osteoporosis; Xerosis; Other Chest Pain 8 10:15 AM CDT Office Visit Department of Family Medicine, [facility], in [address] [address] Andreas Blair M.D. Encounter For Removal Of Sutures (Primary Dx) 8 Orders Only Department of [facility], [facility], in [address] [address] Andreas Blair M.D. Hyperlipidemia (Primary Dx); Screening Mammogram Average Risk Patient 8 3:00 PM CDT Office Visit Department of [facility], in [address] [address] Andreas Blair M.D. Wound Hand Open Initial Left (Primary Dx) 8 1:15 PM CDT Comprehensive Visit Department of Orthopedic Surgery in [place], [place] [address] [place] [address] Guanakito Bauman M.D. Fracture Toe Closed Initial Right 8 3:19 PM CDT - 8 11:59 PM CDT Hospital Encounter Department of Radiology in [place], [place] [address] [place] [address] Jay Guzman M.B.B.S., Leonarda Swelling Toe Discharge Disposition: Home or Self Care 8 2:45 PM CDT Office Visit Department of Family [facility], [facility], in [address] [place] [address] Jay Guzman M.B.BCari, Leonarda Fracture Toe Closed Initial Right (Primary Dx) 8 Nurse Triage Department of Family Medicine, [facility], in [place], [place] [address] [place] [address] Zaida Muñoz R.N. 8 Clinical Communication Department of Family Medicine, [facility], in [place], [place] [address] [place] [address] Andreas Blair M.D. 8 Clinical Communication Department of Family Medicine, [facility], in [place], [place] [address] [place] [address] Andreas Blair M.D. Communication 8 8:00 AM DRY HOUSE ATTENDANT Office Visit Department of Family [facility], [facility], in [place], [place] [address] [place] [address] Andreas Blair M.D. Dysuria (Primary Dx); Cystitis Acute 8 9:15 AM DRY HOUSE ATTENDANT Office Visit Department of Cardiovascular Diseases in [address] [address] Jorge Ordaz M.D. Persistent Atrial Fibrillation (Primary Dx); Chronic Diastolic (Congestive) Heart Failure (HCC) 7 7:58 AM DRY HOUSE ATTENDANT - 7 11:59 PM DRY HOUSE ATTENDANT Hospital Encounter Department of Laboratory Medicine in [address] [address] Kyung Valdovinos M.D. Bleeding Postmenopausal Discharge Disposition: Home or Self Care 7 9:15 AM DRY HOUSE ATTENDANT Office Visit Department of Obstetrics and Gynecology in [place], [place] [address] [place] [address] Kyung Valdovinos M.D. Bleeding Postmenopausal (Primary Dx); Abnormal Ultrasound Endometrium 7 Clinical Communication Department of Cardiovascular Diseases in [place], [place] [address] [address] Adalgisa Domingo L.P.N. Communication 7 Orders Only Department of Obstetrics and Gynecology in [place], [place] [address] [place] [address] Kyung Valdovinos M.D. 7 Clinical Communication Department of Family Medicine, [facility], in [address] [address] Kyung Valdovinos M.D. checking on appointment 7 12:18 PM DRY HOUSE ATTENDANT - 7 11:59 PM DRY HOUSE ATTENDANT Hospital Encounter Department of Cardiovascular Diseases in [address] [address] Jorge Ordaz M.D. Regurgitation Mitral Discharge Disposition: Home or Self Care 7 Orders Only Department of Cardiovascular Diseases in [place], [place] [address] [place] [address] Jorge Ordaz M.D. 7 Abstract Department of Family Medicine, [facility], in [place], [place] [address] [facility] [place] [address] Provider, Historical 7 8:08 AM CDT - 7 11:59 PM CDT Hospital Encounter [facility]X [facility] Kyung Dailey M.D. 7 Abstract Department of Family Medicine in [place], [place] [address] [place] [address] Provider, Historical 7 3:31 AM CDT - 7 11:59 PM CDT Hospital Encounter HX NO MAPPING Kyung Valdovinos M.D. 7 8:37 AM CDT - 7 11:59 PM CDT Hospital Encounter [facility]X [facility] Kyung Dailey M.D. 7 9:22 AM CDT - 7 11:59 PM CDT Hospital Encounter [facility]X [facility] ULTRASOUND Andreas Blair M.D. 7 8:23 AM CDT - 7 11:59 PM CDT Hospital Encounter [facility]X [facility] MAMMO Andreas Blair M.D. 7 2:48 PM CDT - 7 11:59 PM CDT Hospital Encounter HX [facility] FAMILYPRA Andreas Blair M.D. 7 3:18 PM CDT - 7 11:59 PM CDT Hospital Encounter [facility]X [facility] PMTR Tommie Hanna M.D. 7 8:43 AM CDT - 7 11:59 PM CDT Hospital Encounter [facility]X [facility] CARDIOLOGY Jorge Ordaz M.D. 7 2:27 PM CDT - 7 11:59 PM CDT Hospital Encounter HX [facility] FAMILY[facility]A Fruazalea-Andreas Lewis M.D. 7 11:12 AM CDT - 7 11:59 PM CDT Hospital Encounter [facility]X [facility] CARDIOLOGY Jorge Ordaz M.D. 7 9:56 PM CDT - 7 11:59 PM CDT Hospital Encounter HX NO MAPPING Jorge Ordaz M.D. 7 9:23 AM CDT - 7 11:59 PM CDT Hospital Encounter [facility]X [facility] Beni Turpin M.D. 7 9:05 AM CDT - 7 11:59 PM CDT Hospital Encounter [facility]X [facility] LAB Beni Turpin M.D. 7 2:25 PM CDT - 7 11:59 PM CDT Hospital Encounter [facility]X [facility] CARDIOLOGY Jorge Ordaz M.D. 7 9:51 AM CDT - 7 11:59 PM CDT Hospital Encounter [facility]X [facility] CARDIOLOGY Beni Turpin M.D. 7 2:46 PM CDT - 7 11:59 PM CDT Hospital Encounter [facility]X [facility] CARDIOLOGY Jorge Ordaz M.D. 6 9:38 AM DRY HOUSE ATTENDANT - 6 11:59 PM DRY HOUSE ATTENDANT Hospital Encounter [facility]X [facility] CARDIOLOGY Felicita Winston M.D., M.P.H. 6 9:51 AM CDT - 6 11:59 PM CDT Hospital Encounter [facility]X [facility] CARDIOLOGY Teodoro Cooney M.D. 6 3:52 PM CDT - 6 11:59 PM CDT Hospital Encounter [facility]X [facility] Travis Warner M.D. 6 9:15 AM CDT - 6 11:59 PM CDT Hospital Encounter HX NO Santo Joseph M.D. 6 1:46 PM CDT - 6 11:59 PM CDT Hospital Encounter HX [facility] INTERNBeni London M.D. 6 2:53 PM CDT - 6 11:59 PM CDT Hospital Encounter HX [facility] INTERNBeni London M.D. 6 1:11 PM CDT - 6 11:59 PM CDT Hospital Encounter [facility]X [facility] CARDIOLOG Felicita Winston M.D., M.P.H. 6 8:56 AM CDT - 6 11:59 PM CDT Hospital Encounter [facility]X [facility] Beni Samano M.D. 6 1:34 PM CDT - 6 11:59 PM CDT Hospital Encounter HX NO Santo Joseph M.D. 6 9:09 AM CDT - 6 11:59 PM CDT Hospital Encounter [facility]X [facility] Beni Guillen M.D. 6 9:03 AM CDT - 6 11:59 PM CDT Hospital Encounter [facility]X [facility] Beni Kilgore M.D. 6 10:51 AM CDT - 6 11:59 PM CDT Hospital Encounter HX NO Santo Joseph M.D. 6 1:46 PM CDT - 6 11:59 PM CDT Hospital Encounter [facility]X [facility] Beni Guillen M.D. 6 1:53 PM CDT - 6 11:59 PM CDT Hospital Encounter [facility]X [facility] Travis Warner M.D. 6 12:24 PM CDT - 6 11:59 PM CDT Hospital Encounter [facility]X [facility] CARDIOLOG Felicita Winston M.D., M.P.H. 6 10:41 AM CDT - 6 11:59 PM CDT Hospital Encounter [facility]X [facility] ECHO Felicita Winston M.D., M.P.H. 6 10:23 AM CDT - 6 11:59 PM CDT Hospital Encounter [facility]X [facility] NURSE Felicita Ashton M.D., M.P.H. 6 12:25 PM DRY HOUSE ATTENDANT - 6 11:59 PM DRY HOUSE ATTENDANT Hospital Encounter [facility]X [facility] Zenia Waters M.D. 6 11:55 AM DRY HOUSE ATTENDANT - 6 11:59 PM DRY HOUSE ATTENDANT Hospital Encounter HX [facility] CARDIOLOG Felicita Winston M.D., M.P.H. 6 1:52 PM DRY HOUSE ATTENDANT - 6 11:59 PM DRY HOUSE ATTENDANT Hospital Encounter HX [facility] Archana Gómez M.D. 6 9:14 AM DRY HOUSE ATTENDANT - 6 11:59 PM DRY HOUSE ATTENDANT Hospital Encounter HX [facility] Beni Waters M.D. 6 9:45 AM DRY HOUSE ATTENDANT - 6 11:59 PM DRY HOUSE ATTENDANT Hospital Encounter [facility]X [facility] Felicita Farley M.D., M.P.H. 6 9:16 AM DRY HOUSE ATTENDANT - 6 11:59 PM DRY HOUSE ATTENDANT Hospital Encounter [facility]X [facility] Felicita Farley M.D., M.P.H. 6 9:16 AM DRY HOUSE ATTENDANT - 6 11:59 PM DRY HOUSE ATTENDANT Hospital Encounter [facility]X [facility] Beni Kilgore M.D. 6 9:50 AM DRY HOUSE ATTENDANT - 6 11:59 PM DRY HOUSE ATTENDANT Hospital Encounter [facility]X [facility] Beni Waters M.D. 6 9:24 AM DRY HOUSE ATTENDANT - 6 11:59 PM DRY HOUSE ATTENDANT Hospital Encounter HX [facility] Beni Waters M.D. 6 7:34 AM DRY HOUSE ATTENDANT - 6 11:59 PM DRY HOUSE ATTENDANT Hospital Encounter [facility]X [facility] NURSE Felicita Ashton M.D., M.P.H. 6 12:17 PM DRY HOUSE ATTENDANT - 6 11:59 PM DRY HOUSE ATTENDANT Hospital Encounter HX [facility] CARDIOLOG Felicita Winston M.D., M.P.H. 6 7:36 AM DRY HOUSE ATTENDANT - 6 11:59 PM DRY HOUSE ATTENDANT Hospital Encounter HX [facility] Beni Castano M.D. 6 7:50 AM DRY HOUSE ATTENDANT - 6 11:59 PM DRY HOUSE ATTENDANT Hospital Encounter HX [facility] Beni Waters M.D. 6 2:25 PM DRY HOUSE ATTENDANT - 6 11:59 PM DRY HOUSE ATTENDANT Hospital Encounter HX [facility] Beni Waters M.D. 6 3:11 PM DRY HOUSE ATTENDANT - 6 11:59 PM DRY HOUSE ATTENDANT Hospital Encounter HX [facility] Beni Castano M.D. 6 1:01 PM DRY HOUSE ATTENDANT - 6 11:59 PM DRY HOUSE ATTENDANT Hospital Encounter HX [facility] NURSE Felicita Ashton M.D., M.P.H. 6 11:31 AM DRY HOUSE ATTENDANT - 6 11:59 PM DRY HOUSE ATTENDANT Hospital Encounter HX [facility] Felicita Torres M.D., M.P.H. 6 9:07 AM DRY HOUSE ATTENDANT - 6 11:59 PM DRY HOUSE ATTENDANT Hospital Encounter HX [facility] Beni Guillen M.D. 6 8:23 AM DRY HOUSE ATTENDANT - 6 11:59 PM DRY HOUSE ATTENDANT Hospital Encounter HX [facility] Beni Waters M.D. 6 12:47 AM DRY HOUSE ATTENDANT - 6 6:50 PM DRY HOUSE ATTENDANT Hospital Encounter HX RST MARY Perry Fong M.D., M.P.H. 6 3:58 PM DRY HOUSE ATTENDANT - 6 12:47 AM DRY HOUSE ATTENDANT Emergency HX RST EMERGENCY TRAUMA UNI Provider, Historical 6 10:21 AM DRY HOUSE ATTENDANT - 6 11:59 PM DRY HOUSE ATTENDANT Hospital Encounter HX [facility] Beni Waters M.D. 5 7:35 AM DRY HOUSE ATTENDANT - 5 11:59 PM DRY HOUSE ATTENDANT Hospital Encounter HX [facility] Beni Guillen M.D. 5 9:02 AM DRY HOUSE ATTENDANT - 5 11:59 PM DRY HOUSE ATTENDANT Hospital Encounter HX [facility] Beni Waters M.D. 5 10:29 AM DRY HOUSE ATTENDANT - 5 11:59 PM DRY HOUSE ATTENDANT Hospital Encounter HX [facility] Beni Waters M.D. 5 2:47 PM DRY HOUSE ATTENDANT - 5 11:59 PM DRY HOUSE ATTENDANT Hospital Encounter HX [facility] Beni Giullen M.D. 5 10:45 AM DRY HOUSE ATTENDANT - 5 11:59 PM DRY HOUSE ATTENDANT Hospital Encounter HX [facility] Beni Waters M.D. 5 6:57 AM DRY HOUSE ATTENDANT - 5 6:01 PM DRY HOUSE ATTENDANT Hospital Encounter HX RST MAGDALENA JOSHI 5C 5 - 5 11:59 PM DRY HOUSE ATTENDANT Hospital Encounter HX NO MAPPING Provider, Historical 5 - 5 11:59 PM DRY HOUSE ATTENDANT Hospital Encounter HX NO MAPPING Provider, Historical 5 7:11 AM DRY HOUSE ATTENDANT - 5 11:59 PM DRY HOUSE ATTENDANT Hospital Encounter HX NO Kaylah Gannon 5 11:39 AM DRY HOUSE ATTENDANT - 5 11:59 PM DRY HOUSE ATTENDANT Hospital Encounter HX NO MAPPING Alexandra Graves 5 7:45 AM DRY HOUSE ATTENDANT - 5 11:59 PM DRY HOUSE ATTENDANT Hospital Encounter HX NO MAPPING Beni Turpin M.D. 5 10:59 AM DRY HOUSE ATTENDANT - 5 11:59 PM DRY HOUSE ATTENDANT Hospital Encounter [facility]X [facility] LAB Beni Turpin M.D. 5 9:31 AM DRY HOUSE ATTENDANT - 5 11:59 PM DRY HOUSE ATTENDANT Hospital Encounter HX [facility] INTERNMED Beni Turpin M.D. 5 8:29 AM DRY HOUSE ATTENDANT - 5 11:59 PM DRY HOUSE ATTENDANT Hospital Encounter HX [facility] CARDIOLOG Felicita Winston M.D., M.P.H. 5 9:02 AM DRY HOUSE ATTENDANT - 5 2:08 PM DRY HOUSE ATTENDANT Hospital Encounter HX RST Nadja Becerra M.D. 5 7:53 AM DRY HOUSE ATTENDANT - 5 11:59 PM DRY HOUSE ATTENDANT Hospital Encounter HX NO MAPPING 5 3:31 PM CDT - 5 11:59 PM CDT Hospital Encounter HX [facility] INTERNMED Beni Turpin M.D. 5 10:41 AM CDT - 5 11:59 PM CDT Hospital Encounter HX [facility] NURSE ONL Beni Turpin M.D. 5 9:53 AM CDT - 5 11:59 PM CDT Hospital Encounter [facility]X [facility] ECHO Beni Turpin M.D. 5 7:49 AM CDT - 5 11:59 PM CDT Hospital Encounter HX NO MAPPING Beni Turpin M.D. 5 8:15 PM CDT - 5 11:59 PM CDT Hospital Encounter HX NO MAPPING Beni Turpin M.D. 5 2:02 PM CDT - 5 11:59 PM CDT Hospital Encounter HX [facility] INTERNMED Beni Turpin M.D. 3 1:42 PM DRY HOUSE ATTENDANT - 3 11:59 PM DRY HOUSE ATTENDANT Hospital Encounter HX NO MAPPING Francisco Jackson M.D. 3 8:17 AM DRY HOUSE ATTENDANT - 3 11:59 PM DRY HOUSE ATTENDANT Hospital Encounter HX [facility] INTERNMED Beni Turpin M.D. 3 9:40 AM DRY HOUSE ATTENDANT - 3 11:59 PM DRY HOUSE ATTENDANT Hospital Encounter HX [facility] BONE DENS Beni Turpin M.D. 3 12:20 PM DRY HOUSE ATTENDANT - 3 11:59 PM DRY HOUSE ATTENDANT Hospital Encounter HX [facility] Beni Lemus M.D. 1 4:20 PM CDT - 1 11:59 PM CDT Hospital Encounter HX [facility] MAMMO Beni Turpin M.D. 1 10:38 AM CDT - 1 11:59 PM CDT Hospital Encounter [facility]X [facility] Beni Lemus M.D. 1 9:21 AM CDT - 1 11:59 PM CDT Hospital Encounter [facility]X [facility] ULTRASOUN Beni Turpin M.D. 1 8:51 AM CDT - 1 11:59 PM CDT Hospital Encounter HX [facility] INTERNBeni London M.D. 1 2:40 PM DRY HOUSE ATTENDANT - 1 11:59 PM DRY HOUSE ATTENDANT Hospital Encounter HX [facility] SURGEON Francisco Jackson M.D. 0 2:40 PM DRY HOUSE ATTENDANT - 0 11:59 PM DRY HOUSE ATTENDANT Hospital Encounter HX [facility] SURGEON Francisco Jackson M.D. 0 2:23 PM CDT - 0 11:59 PM CDT Hospital Encounter [facility]X [facility] LAB Beni Turpin M.D. 0 10:20 AM CDT - 0 11:59 PM CDT Hospital Encounter HX [facility] BONE DENS Beni Turpin M.D. 0 10:56 AM CDT - 0 11:59 PM CDT Hospital Encounter HX [facility] LAB Beni Turpin M.D. 0 9:09 AM CDT - 0 11:59 PM CDT Hospital Encounter HX [facility] ECHO Beni Turpin M.D. 0 8:49 AM CDT - 0 11:59 PM CDT Hospital Encounter HX [facility] FB[facility] INTERNMED Beni Turpin M.D. 0 10:53 AM CDT - 0 11:59 PM CDT Hospital Encounter HX [facility] FB[facility] NURSE ONL Beni Turpin M.D. 9 3:26 PM CDT - 9 11:59 PM CDT Hospital Encounter HX NO MAPPING Beni Turpin M.D. 9 9:46 AM CDT Hospital Encounter HX NO MAPPING Beni Turpin M.D. 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 Active cyanocobalamin (vitamin B-12) 250 mcg tablet Take 250 mcg by mouth once a week. 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 Active vitamin K2 100 mcg capsule Take 1 capsule by mouth daily. Active VITAMIN A ORAL Take 1 capsule by mouth 2 (two) times a week. Active co-enzyme Q-10 (Co Q-10) 100 mg capsule Take 100 mg by mouth daily. Active clobetasoL (Temovate) 0.05 % ointment Apply 1 Application topically 2 (two) times a day. Apply to perianal skin twice daily for 4-6 weeks. If symptoms improve can then switch to twice daily. 30 g 5 Active Additional Information Patient taking differently:1 Application topicalDaily, Apply to perianal skin once daily, three times a week., Reported on 08/23/2025 estradioL (Estrace) 0.1 mg/g (0.01%) vaginal cream Insert 2 g into the vagina at bedtime. Apply twice weekly. 30 g 3 Active phytonadione, vitamin K1, (Mephyton) 100 mcg tablet Take 100 mcg by mouth once. Active UNABLE TO FIND Take 1 each by mouth once daily. Med Name: calm (magnesium citrate) 1/2 tsp Active UNABLE TO FIND Take 1 each by mouth daily. Med Name: Calm with calcium (magnesium citrate, calcium, potassium and boron) 1 tsp daily Active terbinafine (LamISIL) 250 mg tabletIndicati ons:Onychomyco sis Take 1 tablet (250 mg total) by mouth daily. 5 Active UNABLE TO FIND Med Name: AlgaeCal - calcium, magnesium, boron, vitamin K1, D, & C Active dilTIAZem (Cardizem) 60 mg tablet Take 1 tablet (60 mg total) by mouth every 6 (six) hours. 360 tablet 08/08/2025 9:14 AM CDT 08/26/20 25 Discontin ued(Tabitha alberts ) Hospital, Clinic, or Other Facility Administered Medication Ordered Dose Route Frequency Start Date End Date Status sodium chloride 0.9 % injection 10 mL 10 mL IV As needed 12/08/2024 Active fluorescein 100 mg/mL (10 %) injection 500 mg 500 mg IV Once in imaging 12/08/2024 Active Active Problems Patient Care Coordination No te Formatting of this note migh t be different from the original. Release of Information (Family and Friends) Spouse: Shiv Vallejo Problem Noted Date Diagnosed Date Apnea Sleep Obstructive 08/28/2025 Atrial Fibrillation Permanent 08/21/2025 Atypical Atrial Flutter 11/28/2024 History Of Falling 11/05/2021 Cyst Laryngeal 09/20/2020 Overview (09/20/2020): August 19, 2018: Laryngoscopy [facility]: Left laryngeal saccular cyst Chronic Diastolic (Congestive) Heart Failure 02/2020 Edema Pedal Chronic 05/14/2016 Anemia 01/08/2016 Regurgitation Mitral 09/13/2015 Assessment & Plan (08/06/2025 10:34 AM CDT): Orders: ECG 12 Lead; Future Echo Transthoracic (TTE); Future 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 Heart rate remains elevated at 105- 120 bpm. Pacemaker placement is scheduled next week [...] flu vaccine due to increased exposure risk Assessment & Plan (08/06/2025 10:34 AM CDT): Orders: ECG 12 Lead; Future Echo Transthoracic (TTE); Future Hyperlipidemia 06/06/2010 Osteoporosis 06/06/2010 Atrial Fibrillation Unspecified Heart Failure NOS Cataract Defect Coagulation Complication Anesthesia Initial Other Specified Health Status Resolved Problems Problem Noted Date Diagnosed Date Resolved Date Painful Sternal Wire Subsequent 10/10/2018 08/29/2020 Fracture Rib One Sequela Right 09/15/2018 08/29/2020 Pain Pleuritic Chest 09/09/2018 020 Injury Chest Wall Initial 09/09/2018 Thrombocytopenia 10/05/2017 08/29/2020 [facility] (Current) Anticoagulant Treatment 10/24/2015 09/20/2020 Immunizations Immunization Administration Dates Next Due DTaP (Infanrix, Tripedia) 05/12/2009 Influenza (Nasal), Unspecified 12/29/2023(Deferr ed: Patient Refused) Influenza TIV (IM) 11/25/2024 Influenza high dose QV(65 ye ars or older) (PF) 09/20/2020 PCV13 07/13/2017 PPSV23 01/06/2013 RSV: respiratory syncytial v irus (ABRYSVO) bivalent vaccine 08/23/2025 RZV (SHINGRIX) 11/25/2023(Deferred: Other - Insurance non coverage),09/20/2020(Deferred: Patient Refused) SARS-COV-2 (COVID-19) - JANS SEN (J&J)(Discontinued) 01/18/2021 SARS-COV-2 (COVID-19) - MODE RNA (12 YEARS AND OLDER) Fall Seasonal 08/23/2025,04/29/2024,09/22/2023 SARS-COV-2 (COVID-19) - MODERNA(Discontinued) 04/25/2022,10/16/2021 SARS-COV-2 (COVID-19) - PFIZ ER BIVALENT TS(Discontinued)(12 YEARS OR OLDER) 09/12/2022 Td Preservative Free (TENIVA C, DECAVAC) 05/25/2018 Tdap 05/12/2009 influenza trivalent high dos e (HD)(PF) 08/23/2025 Family History Medical History Relation Name Comments Bradycardia Father Madan Cataracts Father Madan Coronary artery disease Father Madan thre e balloon angioplasties Diabetes Father Madan mild type 2 Hearing loss Father Madan Hyperlipidemia (high cholesterol) Father Madan high triglycerides Hypertension Father Madan from early adul thood Obesity Father Madan ~30 lbs Prostate cancer Father Madan Stroke Father Madan due to bradycar uche, good recovery Stroke Maternal Grandfather Guanakito phillip, coma and from eating a misidentified wild plant Breast cancer (in one breast) Maternal Grandmother Misty age 78 Obesity Maternal Grandmother Misty ~40 lbs Alzheimer's disease Mother Klaudia Breast cancer (in one breast) Mother Klaudia age 78 Dementia Mother Klaudia age 89 to 92 Osteoporosis Mother Klaudia This is wrong, please delete. Coronary artery disease Paternal Grandfather [place] survived 1st, 2nd time Tuberculosis Paternal Grandfather [place] in 1930 s, apparently recovered Cancer Paternal Grandmother Christie slow-gr owing tumors in brain, one in lung Hypothyroidism Sister 1 jami Cataracts Sister 2 mary Relation Name Status Comments Father Madan (Age 83) Maternal Grandfather Guanakito Maternal Grandmother Misty Mother Klaudia (Age 91) Paternal Grandfather [place] Paternal Grandmother Christie Sister 1 jami Alive Sister 2 mary Alive Social History Smoking Status as of 08/29/2025 Tobacco Use Types Packs/Day Years Used Date Smoking Tobacco: Never Assessed Humiliation, Afraid, Rape, and Kick questionnair e [...] for daily living? No 07/14/2025 [facility] Utilities Answer Date Recorded In the past 12 months has th [employer], gas, oil, or water company threatened to shut off services in your home? No 07/14/2025 Depression Answer Date Recor ded PHQ-9 Total Score (max 27) 0 12/02 Housing Stability Answer Date Recorded What is your living situation today? I have a [facility] place to live 07/14/2025 Education Answer Date Recorded What is the highest level of school you have completed or the highest degree you have received? Doctorate 10/14/2019 Sex and Gender Information Value Date Recorded Sex Assigned at Female 08/18/2021 8:27 PM CDT Legal Sex Female 6:20 AM DRY HOUSE ATTENDANT Gender Identity Female 08/18/2021 8:27 PM CDT Sexual Orientation Not on file Last Filed Vital Signs Vital Sign Reading Time Taken Comments Blood Pressure 149/77 08/24/2025 10:16 AM CDT Pulse 84 08/24/2025 10:16 AM CDT Temperature 36.7 C (98.1 F) 08/23/2025 2:50 PM CDT Respiratory Rate 20 08/23/2025 2:50 PM CDT Oxygen Saturation 99% 07/21/2025 9:25 AM CDT Inhaled Oxygen Concentration - - Weight 67.9 kg (149 lb 12.8 oz) 025 10:16 AM CDT Height 178 cm (5' 10.08) 08/24/2025 10 :16 AM CDT Body Mass Index 21.45 08/24/2025 10:16 AM CDT Plan of Treatment Upcoming Encounters Date Type Department Care Team (Latest Contact Info) Description 08/30/2025 10:30 AM CDT Hospital Encounter Division of Cardiovascular Diseases in [address] [phone] Perry Lozano M.D., M.P.H. [address] [place] [phone] Atrial Fibrillation Permanent (HCC) 08/30/2025 11:46 AM CDT - 08/30/2025 2:26 PM CDT Surgery Division of Cardiovascular Diseases in [address] [phone] Perry Lozano M.D., M.P.H. [address] [place] [phone] PPM IMPLANT 08/31/2025 4:25 PM CDT Hospital Encounter Division of Cardiovascular Diseases in [address] [phone] Alo Mehta M.D., M.B.A. [address] [place] [phone] Atrial Fibrillation Longstanding Persistent (HCC) 08/31/2025 4:25 PM CDT - 08/31/2025 6:20 PM CDT Surgery Division of Cardiovascular Diseases in [address] [phone] Alo Mehta M.D., M.B.A. [address] [place] [phone] ABLATION - AV NODE 10/24/2025 1:00 PM DRY HOUSE ATTENDANT Appointment Department of Cardiovascular Diseases in [place], [place] [address] [place] [phone] Jorge Ordaz M.D. [address] [place] [phone] Medical Devices Implanted Type Area Obstetrics Gyn Physician Device Identifier Shelf Expiration Date Model / Serial / Lot Ring Annuloflex Carbomedics 26mm - Maldonado [id number] Implanted:Qty: 1 on 10/15/2015 Cardiac Valve Prosthesis Other/Legacy - See Implant Description Carbomedics Description:Device Manufactu rer - Carbomedics. Body Location - Other. Tricuspid. Device Status Text - [id number]. Ring Annuloflex Carbomedics 32mm - Maldonado [id number] Implanted:Qty: 1 on 10/15/2015 Cardiac Valve Prosthesis Other/Legacy - See Implant Description Carbomedics Description:Device Manufactu rer - Carbomedics. Body Location - Other. Mitral. Device Status Text - [id number]. Procedures Procedure Name Priority Date/Time Associated Diagnosis Comments BMD BONE DENSITY SPINE HIPS RAD - Routine (most inpatients and all outpatients) 08/29/2025 3:12 PM CDT Osteoporosis ECG Routine 08/24/2025 10:04 AM CDT Atrial Fibrillation Longstanding Persistent (HCC) DX CHEST AP OR PA AND LATERAL 2 VIEWS RAD - Routine (most inpatients and all outpatients) 08/24/2025 8:49 AM CDT Atrial Fibrillation Longstanding Persistent (HCC) THYROID FUNCTION CASCADE, S Routine 08/24/2025 8:36 AM CDT Atrial Fibrillation Longstanding Persistent (HCC) CBC WITHOUT DIFFERENTIAL, B Routine 08/24/2025 8:36 AM CDT Atrial Fibrillation Longstanding Persistent (HCC) BASIC METABOLIC PANEL, S/P Routine 08/24/2025 8:36 AM CDT Atrial Fibrillation Longstanding Persistent (HCC) (TTE) 2D ECHO DOPPLER COLOR AND CONTRAST Routine 08/24/2025 8:03 AM CDT Atrial Fibrillation Longstanding Persistent (HCC) ECG Routine 07/21/2025 9:06 AM CDT Atrial Fibrillation Other Persistent (HCC) OPTICAL COHERENCE TOMOGRAPHY - MACULA/RETINA - OU - BOTH EYES Routine 03/29/2025 10:55 AM CDT 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) OPHTHALMOLOGY IMAGE EXAM Routine 12:00 AM CDT ECG Routine 01/23/2025 12:19 PM CDT Atrial Fibrillation Longstanding Persistent (HCC) Atrial Fibrillation Unspecified (HCC) BASIC METABOLIC PANEL, S/P Routine 01/23/2025 9:36 AM CDT Atrial Fibrillation Longstanding Persistent (HCC) Atrial Fibrillation Unspecified (HCC) DERMATOLOGY IMAGE EXAM Routine 12:05 AM DRY HOUSE ATTENDANT OPHTHALMOLOGY IMAGE EXAM Routine 12:00 AM DRY HOUSE ATTENDANT OPTICAL COHERENCE TOMOGRAPHY - MACULA/RETINA - OU - BOTH EYES Routine 12/27/2024 10:40 AM DRY HOUSE ATTENDANT 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) OPHTHALMOLOGY IMAGE EXAM Routine 9:20 AM DRY HOUSE ATTENDANT AUTOMATED VF - EXTENDED - OU - BOTH EYES Routine 12/27/2024 9:19 AM DRY HOUSE ATTENDANT 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) OPHTHALMOLOGY IMAGE EXAM Routine 025 12:00 AM DRY HOUSE ATTENDANT COLON AND RECTAL SURGERY IMAGE EXAM Routine 12/20/2024 11:15 AM DRY HOUSE ATTENDANT BASIC METABOLIC PANEL, S/P Routine 12/12/2024 12:15 PM DRY HOUSE ATTENDANT Atrial Fibrillation Longstanding Persistent (HCC) Atrial Fibrillation Unspecified (HCC) CBC WITHOUT DIFFERENTIAL, B Routine 12/12/2024 12:15 PM DRY HOUSE ATTENDANT Atrial Fibrillation Longstanding Persistent (HCC) Atrial Fibrillation Unspecified (HCC) PHYSICAL MEDICINE AND REHAB IMAGE EXAM Routine 12/06/2024 9:15 AM DRY HOUSE ATTENDANT MAGNESIUM, S Routine 12/06/2024 7:49 AM DRY HOUSE ATTENDANT BASIC METABOLIC PANEL, S/P Routine 12/06/2024 7:49 AM DRY HOUSE ATTENDANT ECG Routine 12/05/2024 12:32 PM DRY HOUSE ATTENDANT PHYSICAL MEDICINE AND REHAB IMAGE EXAM Routine 12/05/2024 9:30 AM DRY HOUSE ATTENDANT ADULT OXYGEN THERAPY Routine 12/05/2024 8:01 AM DRY HOUSE ATTENDANT CBC WITH DIFFERENTIAL, B Routine 025 6:30 AM DRY HOUSE ATTENDANT BASIC METABOLIC PANEL, S/P Routine 12/05/2024 6:30 AM DRY HOUSE ATTENDANT ADULT OXYGEN THERAPY Routine 12/04/2024 8:00 PM DRY HOUSE ATTENDANT CBC WITH DIFFERENTIAL, B Routine 025 10:58 AM DRY HOUSE ATTENDANT BASIC METABOLIC PANEL, S/P Routine 12/04/2024 10:58 AM DRY HOUSE ATTENDANT PHYSICAL MEDICINE AND REHAB IMAGE EXAM Routine 12/04/2024 9:40 AM DRY HOUSE ATTENDANT ADULT OXYGEN THERAPY Routine 12/04/2024 8:00 AM DRY HOUSE ATTENDANT ADULT OXYGEN THERAPY Routine 12/03/2024 8:00 PM DRY HOUSE ATTENDANT CARDIOLOGY ENCOUNTER IMAGE EXAM Routine 12/03/2024 9:55 AM DRY HOUSE ATTENDANT ADULT OXYGEN THERAPY Routine 12/03/2024 8:01 AM DRY HOUSE ATTENDANT BASIC METABOLIC PANEL, S/P Routine 12/03/2024 6:50 AM DRY HOUSE ATTENDANT CBC WITH DIFFERENTIAL, B Routine 025 6:50 AM DRY HOUSE ATTENDANT ADULT OXYGEN THERAPY Routine 12/02/2024 8:00 PM DRY HOUSE ATTENDANT GRAM STAIN Timed 12/02/2024 6:24 PM DRY HOUSE ATTENDANT BACTERIAL CULTURE, AEROBIC + SUSC Timed 12/02/2024 6:24 PM DRY HOUSE ATTENDANT BACTERIAL CULTURE, ANAEROBIC + SUSC Timed 12/02/2024 6:24 PM DRY HOUSE ATTENDANT GRAM STAIN Timed 12/02/2024 6:24 PM DRY HOUSE ATTENDANT BACTERIAL CULTURE, AEROBIC + SUSC Timed 12/02/2024 6:24 PM DRY HOUSE ATT[address] HAND RIGHT WITHOUT AND WITH IV CONTRAST RAD - Routine (most inpatients and all outpatients) 12/02/2024 12:46 PM DRY HOUSE ATTENDANT RAD US MUSCULOSKELETAL HAND RIGHT RAD - Routine (most inpatients and all outpatients) 12/02/2024 8:55 AM DRY HOUSE ATTENDANT ADULT OXYGEN THERAPY Routine 12/02/2024 8:01 AM DRY HOUSE ATTENDANT INTERNAL MEDICINE IMAGE EXAM Routine 12/02/2024 8:00 AM DRY HOUSE ATTENDANT BASIC METABOLIC PANEL, S/P Routine 12/02/2024 5:39 AM DRY HOUSE ATTENDANT CBC WITH DIFFERENTIAL, B Routine 025 5:39 AM DRY HOUSE ATTENDANT ADULT OXYGEN THERAPY Routine 12/01/2024 8:01 PM DRY HOUSE ATTENDANT INTERNAL MEDICINE IMAGE EXAM Routine 12/01/2024 1:05 PM DRY HOUSE ATTENDANT MRSA/STAPHYLOCOCCUS AUREUS, NASAL, BY PCR Routine 12/01/2024 11:58 AM DRY HOUSE ATTENDANT BACTERIA / MARILYN CULTURE, BLOOD STAT 12/01/2024 11:06 AM DRY HOUSE ATTENDANT BACTERIA / MARILYN CULTURE, BLOOD STAT 12/01/2024 10:56 AM DRY HOUSE ATTENDANT MR BRAIN WITHOUT AND WITH IV CONTRAST RAD - Routine (most inpatients and all outpatients) 12/01/2024 8:49 AM DRY HOUSE ATTENDANT ADULT OXYGEN THERAPY Routine 12/01/2024 8:01 AM DRY HOUSE ATTENDANT BASIC METABOLIC PANEL, S/P Routine 12/01/2024 7:16 AM DRY HOUSE ATTENDANT CBC WITH DIFFERENTIAL, B Routine 025 7:16 AM DRY HOUSE ATTENDANT ECG Routine 11/30/2024 10:15 PM DRY HOUSE ATTENDANT ADULT OXYGEN THERAPY Routine 11/30/2024 8:01 PM DRY HOUSE ATTENDANT CARDIOLOGY ENCOUNTER IMAGE EXAM Routine 11/30/2024 6:23 PM DRY HOUSE ATT[address] CT HEAD WITHOUT IV CONTRAST RAD - Routine (most inpatients and all outpatients) 11/30/2024 4:20 PM DRY HOUSE ATTENDANT CT HEAD NECK ANGIOGRAM WITH IV CONTRAST RAD - Routine (most inpatients and all outpatients) 11/30/2024 4:20 PM DRY HOUSE ATTENDANT ECG Routine 11/30/2024 10:47 AM DRY HOUSE ATTENDANT ADULT OXYGEN THERAPY Routine 11/30/2024 8:02 AM DRY HOUSE ATTENDANT MAGNESIUM, S Routine 11/30/2024 7:12 AM DRY HOUSE ATTENDANT BASIC METABOLIC PANEL, S/P Routine 11/30/2024 7:12 AM DRY HOUSE ATTENDANT ECG Routine 11/29/2024 10:31 PM DRY HOUSE ATTENDANT ADULT OXYGEN THERAPY Routine 11/29/2024 8:01 PM DRY HOUSE ATTENDANT MAGNESIUM, S STAT 11/29/2024 6:21 PM DRY HOUSE ATTENDANT BASIC METABOLIC PANEL, S/P STAT 11/29/2024 6:21 PM DRY HOUSE ATTENDANT CBC WITH DIFFERENTIAL, B STAT 025 6:21 PM DRY HOUSE ATTENDANT ECG Routine 11/29/2024 5:48 PM DRY HOUSE ATTENDANT ADULT OXYGEN THERAPY Routine 11/29/2024 5:21 PM DRY HOUSE ATTENDANT ADULT OXYGEN THERAPY Routine 11/29/2024 5:21 PM DRY HOUSE ATTENDANT ADULT OXYGEN THERAPY Routine 11/29/2024 5:21 PM DRY HOUSE ATTENDANT US UPPER EXTREMITY ARTERIES LEFT RAD - Emergent (Fastest; for the most critically ill patients) 11/29/2024 4:34 PM DRY HOUSE ATTENDANT HEART RHYTHM PROCEDURE Routine 12:44 PM DRY HOUSE ATTENDANT Atrial Fibrillation Longstanding Persistent (HCC) ABLATION - ATRIAL FLUTTER - RIGHT Routine 11/29/2024 12:44 PM DRY HOUSE ATTENDANT Atrial Fibrillation Longstanding Persistent (HCC) HEART RHYTHM PROCEDURE Routine 12:44 PM DRY HOUSE ATTENDANT Atrial Fibrillation Longstanding Persistent (HCC) ABLATION PVI Routine 11/29/2024 12:44 PM DRY HOUSE ATTENDANT Atrial Fibrillation Longstanding Persistent (HCC) HEART RHYTHM PROCEDURE Routine 12:44 PM DRY HOUSE ATTENDANT Atrial Fibrillation Longstanding Persistent (HCC) ACT, POCT, B Routine 11/29/2024 12:25 PM DRY HOUSE ATTENDANT ACT, POCT, B Routine 11/29/2024 11:59 AM DRY HOUSE ATTENDANT ACT, POCT, B Routine 11/29/2024 11:29 AM DRY HOUSE ATTENDANT ACT, POCT, B Routine 11/29/2024 10:52 AM DRY HOUSE ATTENDANT ACT, POCT, B Routine 11/29/2024 10:28 AM DRY HOUSE ATTENDANT ACT, POCT, B Routine 11/29/2024 9:54 AM DRY HOUSE ATTENDANT ACT, POCT, B Routine 11/29/2024 9:33 AM DRY HOUSE ATTENDANT LDA ANE ENDOTRACHEAL AIRWAY Routine 11/29/2024 8:42 AM DRY HOUSE ATTENDANT ECG Routine 11/28/2024 1:40 PM DRY HOUSE ATTENDANT Atrial Fibrillation Longstanding Persistent (HCC) CBC WITHOUT DIFFERENTIAL, B Routine 11/28/2024 1:18 PM DRY HOUSE ATTENDANT Atrial Fibrillation Longstanding Persistent (HCC) TYPE AND SCREEN Routine 11/28/2024 1:17 PM DRY HOUSE ATTENDANT Atrial Fibrillation Longstanding Persistent (HCC) COMPREHENSIVE METABOLIC PANEL, S/P Routine 11/28/2024 1:17 PM DRY HOUSE ATTENDANT Atrial Fibrillation Longstanding Persistent (HCC) CT CARDIAC PULMONARY VEINS WITH IV CONTRAST RAD - Routine (most inpatients and all outpatients) 11/28/2024 10:09 AM DRY HOUSE ATTENDANT Atrial Fibrillation Longstanding Persistent (HCC) ECG Routine 09/09/2024 1:21 PM CDT Palpitations Atrial Fibrillation Longstanding Persistent (HCC) (TTE) 2D ECHO DOPPLER COLOR Routine 08/17/2024 10:48 AM CDT Abnormal Echocardiogram MAGNESIUM, S Routine 07/11/2024 10:39 AM CDT Atrial Fibrillation Longstanding Persistent (HCC) ECG Routine 07/11/2024 9:48 AM CDT Atrial Fibrillation Longstanding Persistent (HCC) HOME SLEEP APNEA TEST (HSAT) Routine 06/22/2024 9:26 AM CDT Sleep Apnea Apnea Sleep Obstructive ECG Routine 06/15/2024 8:46 AM CDT Abnormal Echocardiogram Atrial Fibrillation Longstanding Persistent (HCC) High Risk Medication ECG Routine 06/13/2024 4:23 PM CDT High Risk Medication Atrial Fibrillation Longstanding Persistent (HCC) ECG Routine 06/08/2024 8:10 AM CDT Atrial Fibrillation Longstanding Persistent (HCC) Regurgitation Mitral Dilated Aortic Root (HCC) BASIC METABOLIC PANEL, S/P Routine 04/29/2024 8:53 AM CDT Atrial Fibrillation Longstanding Persistent (HCC) CBC WITHOUT DIFFERENTIAL, B Routine 04/29/2024 8:53 AM CDT Atrial Fibrillation Longstanding Persistent (HCC) PUL HOME OVERNIGHT OXIMETRY Routine 04/26/2024 6:45 AM CDT Sleep Apnea ECG Routine 04/23/2024 10:54 AM CDT MAGNESIUM, S Routine 04/23/2024 8:01 AM CDT BASIC METABOLIC PANEL, S/P Routine 04/23/2024 8:01 AM CDT CBC WITHOUT DIFFERENTIAL, B Routine 04/23/2024 8:01 AM CDT ECG Routine 04/23/2024 12:13 AM CDT ECG STAT 04/22/2024 3:33 PM CDT ADULT OXYGEN THERAPY Routine 04/22/2024 3:16 PM CDT ADULT OXYGEN THERAPY Routine 04/22/2024 3:16 PM CDT (ANISH) 2D WITH LIMITED DOPPLER AND CONTRAST Routine 04/22/2024 3:03 PM CDT CARDIOVERSION EXTERNAL Routine 3:03 PM CDT ECG Routine 04/22/2024 11:26 AM CDT BASIC METABOLIC PANEL, S/P Routine 04/22/2024 8:01 AM CDT ADULT OXYGEN THERAPY Routine 04/22/2024 8:00 AM CDT ECG Timed 04/22/2024 12:12 AM CDT ADULT OXYGEN THERAPY Routine 04/21/2024 8:00 PM CDT ECG Timed 04/21/2024 12:58 PM CDT ECG STAT 04/21/2024 8:12 AM CDT ADULT OXYGEN THERAPY Routine 04/21/2024 8:01 AM CDT ADULT OXYGEN THERAPY Routine 04/21/2024 7:24 AM CDT ADULT OXYGEN THERAPY Routine 04/21/2024 7:24 AM CDT ADULT OXYGEN THERAPY Routine 04/21/2024 7:24 AM CDT ECG Routine 04/21/2024 6:56 AM CDT CBC WITHOUT DIFFERENTIAL, B STAT 04/21/2024 6:35 AM CDT MAGNESIUM, S STAT 04/21/2024 6:35 AM CDT BASIC METABOLIC PANEL, S/P STAT 04/21/2024 6:35 AM CDT (TTE) 2D ECHO DOPPLER COLOR Routine 04/13/2024 11:31 AM CDT Atrial Fibrillation Longstanding Persistent (HCC) ECG Routine 03/29/2024 8:21 AM CDT Palpitations ECG Routine 03/16/2024 9:06 AM CDT Atrial Fibrillation Longstanding Persistent (HCC) THYROID FUNCTION CASCADE, S Routine 03/16/2024 9:00 AM CDT Atrial Fibrillation Longstanding Persistent (HCC) BASIC METABOLIC PANEL, S/P Routine 03/16/2024 9:00 AM CDT Atrial Fibrillation Longstanding Persistent (HCC) DX CHEST AP OR PA AND LATERAL 2 VIEWS RAD - Routine (most inpatients and all outpatients) 03/16/2024 8:50 AM CDT Atrial Fibrillation Longstanding Persistent (HCC) HOLTER MONITOR - IN CLINIC LAWYER Routine 03/10/2024 10:15 PM CDT Atrial Fibrillation Longstanding Persistent (HCC) DERMATOPATHOLOGY Routine 02/12/2024 12:16 PM CDT Tumor Skin Uncertain Behavior DERMATOLOGY IMAGE EXAM Routine 10:15 AM CDT BMD BONE DENSITY SPINE HIPS RAD - Routine (most inpatients and all outpatients) 12/24/2023 2:19 PM DRY HOUSE ATTENDANT Osteoporosis DX RIBS BILATERAL 4 VIEWS WITH CHEST POSTEROANTERIOR 1 VIEW RAD - Routine (most inpatients and all outpatients) 11/20/2023 3:58 PM DRY HOUSE ATTENDANT Osteoporosis CALCIUM, TOT, S/P Routine 11/20/2023 3:07 PM DRY HOUSE ATTENDANT Osteoporosis VITAMIN D, IMMUNOASSAY, TOTAL, S Routine 11/20/2023 3:07 PM DRY HOUSE ATTENDANT Osteoporosis BI BREAST SCREENING BILATERAL WITH TOMOSYNTHESIS RAD - Routine (most inpatients and all outpatients) 10/20/2023 2:21 PM DRY HOUSE ATTENDANT Screening Mammogram Breast Cancer LYME AB MODIFIED 2-TIER W/REFLEX, S Routine 09/18/2023 12:51 PM CDT Insect Bite (Includes Tick) Nonvenomous Right Lower Leg Subsequent BORRELIA MIYAMOTOI DETECTION PCR, B Routine 09/18/2023 12:51 PM CDT Insect Bite (Includes Tick) Nonvenomous Right Lower Leg Subsequent EHRLICHIA/ANAPLASMA PCR, BLOOD Routine 09/18/2023 12:51 PM CDT Insect Bite (Includes Tick) Nonvenomous Right Lower Leg Subsequent BABESIA SPEC., MOLECULAR DETECT, PCR W/ PARASITEMIA REFLEX Routine 09/18/2023 12:51 PM CDT Insect Bite (Includes Tick) Nonvenomous Right Lower Leg Subsequent (TTE) 2D ECHO DOPPLER COLOR Routine 05/27/2023 10:27 AM CDT Atrial Fibrillation Longstanding Persistent (HCC) Regurgitation Mitral Shortness Of Breath HOLTER MONITOR - IN CLINIC LAWYER Routine 03/26/2023 7:10 AM CDT Palpitations Atrial Fibrillation Longstanding Persistent (HCC) ECG Routine 02/26/2023 4:23 PM CDT Palpitations Atrial Fibrillation Longstanding Persistent (HCC) THYROID FUNCTION CASCADE, S Routine 02/26/2023 4:20 PM CDT Palpitations Atrial Fibrillation Longstanding Persistent (HCC) CBC WITHOUT DIFFERENTIAL, B Routine 02/26/2023 4:20 PM CDT Palpitations Atrial Fibrillation Longstanding Persistent (HCC) MAGNESIUM, S Routine 02/26/2023 4:20 PM CDT Palpitations Atrial Fibrillation Longstanding Persistent (HCC) CREATININE WITH EGFR, S/P Routine 02/26/2023 4:20 PM CDT Palpitations Atrial Fibrillation Longstanding Persistent (HCC) POTASSIUM, S/P Routine 02/26/2023 4:20 PM CDT Palpitations Atrial Fibrillation Longstanding Persistent (HCC) SODIUM, S/P Routine 02/26/2023 4:20 PM CDT Palpitations Atrial Fibrillation Longstanding Persistent (HCC) LIPID PANEL, S Routine 12/05/2022 3:19 PM DRY HOUSE ATTENDANT Hyperlipidemia DX HAND LEFT 3+ VIEWS RAD - Routine (most inpatients and all outpatients) 09/12/2022 10:39 AM CDT Pain Hand Left ECG Routine 08/27/2022 9:47 AM CDT Atrial Fibrillation Longstanding Persistent (HCC) SURGICAL PATHOLOGY Routine 05/20/2022 11:11 AM CDT GASTROENTEROLOGY IMAGE EXAM Routine 05/20/2022 10:25 AM CDT COLONOSCOPY Routine 05/20/2022 10:23 AM CDT Diarrhea COLONOSCOPY Routine 05/20/2022 10:23 AM CDT Diarrhea GI PATHOGEN PANEL, PCR, F Routine 04/29/2022 8:40 AM CDT Diarrhea TISSUE TRANSGLUTAMINASE (TTG) AB, IGA, S Routine 04/28/2022 4:33 PM CDT Diarrhea THYROID-STIMULATING HORMONE-SENSITIVE (S-TSH) Routine 04/28/2022 4:33 PM CDT Diarrhea COMPREHENSIVE METABOLIC PANEL, S/P Routine 04/28/2022 4:33 PM CDT Diarrhea CBC WITH DIFFERENTIAL, B Routine 022 4:33 PM CDT Diarrhea GI PATHOGEN PANEL, PCR, F Routine 02/24/2022 12:46 PM CDT Diarrhea DX ABDOMEN 1 VIEW RAD - Routine (most inpatients and all outpatients) 02/24/2022 12:22 PM CDT Diarrhea OH URINALYSIS AUTO WO MICRO Routine 12/17/2021 9:10 AM DRY HOUSE ATTENDANT URINALYSIS WITH MICROSCOPIC IF INDICATED, U Routine 12/17/2021 9:10 AM DRY HOUSE ATTENDANT Hematuria LIPID PANEL, S Routine 11/26/2021 3:25 PM DRY HOUSE ATTENDANT Hyperlipidemia HEMOGLOBIN A1C, B Routine 11/26/2021 3:25 PM DRY HOUSE ATTENDANT Elevated Glucose THIAMIN (VITAMIN B1), B Routine 11/25/19 1:45 PM DRY HOUSE ATTENDANT Concern Patient Cognition Function OH ORGANIC ACID 1 QUANT 2 Routine 11/25/2021 8:40 AM DRY HOUSE ATTENDANT PERNICIOUS ANEMIA CASCADE, S Routine 11/25/2021 8:40 AM DRY HOUSE ATTENDANT Concern Patient Cognition Function INFLUENZA A/B AND RSV, PCR, VARIES Routine 11/19/2021 1:11 PM DRY HOUSE ATTENDANT Infection Upper Respiratory SARS CORONAVIRUS-2 RNA, V Routine 11/19/2021 1:11 PM DRY HOUSE ATTENDANT Contact With And (Suspected) Exposure To COVID-19 LIPID PANEL, S Routine 09/03/2021 8:43 AM CDT Hyperlipidemia ECG Routine 08/21/2021 10:39 AM CDT Atrial Fibrillation Longstanding Persistent (HCC) OTORHINOLARYNGOLOGY IMAGE EXAM Routine 07/12/2021 10:15 AM CDT OTORHINOLARYNGOLOGY IMAGE EXAM Routine 07/12/2021 10:10 AM CDT BMD BONE DENSITY SPINE HIPS RAD - Routine (most inpatients and all outpatients) 07/09/2021 10:39 AM CDT Screening Osteoporosis SARS CORONAVIRUS-2 RNA, V STAT 07/09/2021 10:14 AM CDT Preoperative Exam BI BREAST SCREENING BILATERAL WITH TOMOSYNTHESIS RAD - Routine (most inpatients and all outpatients) 06/27/2021 10:49 AM CDT Screening Mammogram Breast Cancer OH ARTHCS ASP/INJ MJR JT WO US Routine 04/03/2021 1:12 PM CDT Pain Shoulder Right DX SHOULDER RIGHT 2+ VIEWS RAD - Routine (most inpatients and all outpatients) 04/03/2021 12:59 PM CDT Pain Shoulder Right DX RIBS RIGHT 2 VIEWS RAD - Routine (most inpatients and all outpatients) 01/17/2021 12:29 PM DRY HOUSE ATTENDANT Pain Rib LIPID PANEL, S Routine 09/11/2020 8:31 AM CDT Hyperlipidemia GLUCOSE, FASTING, S/P Routine 09/11/2020 8:31 AM CDT Screening Examination Diabetes Mellitus ECG Routine 08/29/2020 9:13 AM CDT Pain Chest Atypical SARS-COV-2 TOTAL ANTIBODY, SERUM Routine 05/15/2020 3:55 PM CDT ECG Routine 02/01/2020 2:03 PM CDT Atrial Fibrillation Longstanding Persistent (HCC) (TTE) 2D ECHO DOPPLER COLOR Routine 02/01/2020 2:00 PM CDT Atrial Fibrillation Longstanding Persistent (HCC) THYROID FUNCTION CASCADE, S Routine 01/19/2020 11:13 AM DRY HOUSE ATTENDANT Atrial Fibrillation Longstanding Persistent (HCC) POTASSIUM, S/P Routine 01/19/2020 11:13 AM DRY HOUSE ATTENDANT Atrial Fibrillation Longstanding Persistent (HCC) SODIUM, S/P Routine 01/19/2020 11:13 AM DRY HOUSE ATTENDANT Atrial Fibrillation Longstanding Persistent (HCC) CBC WITH DIFFERENTIAL, B Routine 020 11:13 AM DRY HOUSE ATTENDANT Atrial Fibrillation Longstanding Persistent (HCC) CREATININE WITH EGFR, S/P Routine 01/19/2020 11:13 AM DRY HOUSE ATTENDANT Atrial Fibrillation Longstanding Persistent (HCC) DX CHEST AP OR PA AND LATERAL 2 VIEWS RAD - Routine (most inpatients and all outpatients) 01/19/2020 11:09 AM DRY HOUSE ATTENDANT Atrial Fibrillation Longstanding Persistent (HCC) HOLTER MONITOR - IN CLINIC LAWYER Routine 10/25/2019 2:21 PM DRY HOUSE ATTENDANT Longstanding Persistent Atrial Fibrillation (HCC) ECG Routine 10/19/2019 10:06 AM DRY HOUSE ATTENDANT Longstanding Persistent Atrial Fibrillation (HCC) CBC WITH DIFFERENTIAL, B Routine 019 8:14 AM CDT Anemia LIPID PANEL, S Routine 09/15/2019 8:14 AM CDT Hyperlipidemia CREATININE WITH EGFR, S/P Routine 09/15/2019 8:14 AM CDT Monitoring For Therapeutic Drug Therapy POTASSIUM, S/P Routine 09/15/2019 8:14 AM CDT Monitoring For Therapeutic Drug Therapy BI BREAST SCREENING BILATERAL WITH TOMOSYNTHESIS RAD - Routine (most inpatients and all outpatients) 07/06/2019 10:50 AM CDT Screening Mammogram Breast Cancer ECHO STRESS 2D WITH COLOR AND LIMITED DOPPLER Routine 05/25/2019 1:51 PM CDT Pain Chest OUTSIDE OTHER Routine 01/28/2019 12:00 PM CDT GRAM STAIN Routine 09/29/2018 4:09 PM DRY HOUSE ATTENDANT BACTERIAL CULTURE, AEROBIC + SUSC, RESP Routine 09/29/2018 4:09 PM DRY HOUSE ATTENDANT Bronchitis DX RIBS RIGHT 2 VIEWS RAD - Routine (most inpatients and all outpatients) 09/15/2018 3:41 PM CDT Fracture Rib One Sequela Right DX RIBS RIGHT 2 VIEWS WITH CHEST POSTEROANTERIOR 1 VIEW RAD - Routine (most inpatients and all outpatients) 09/09/2018 4:12 PM CDT Pain Pleuritic Chest BMD BONE DENSITY SPINE HIPS RAD - Routine (most inpatients and all outpatients) 08/31/2018 3:41 PM CDT Screening Osteoporosis OTORHINOLARYNGOLOGY IMAGE EXAM Routine 08/19/2018 10:05 AM CDT LIPID PANEL, S Routine 07/08/2018 9:04 AM CDT Hyperlipidemia OUTSIDE PHOTO Routine 06/29/2018 12:00 PM CDT OUTSIDE PHOTO Routine 06/29/2018 12:00 PM CDT SURGICAL PATHOLOGY Routine 06/17/2018 12:37 PM CDT Lesion Skin Chest OH BX SKIN/SUBQ TISS 1ST LESION Routine 06/17/2018 11:15 AM CDT Lesion Skin Chest DX CHEST AP OR PA AND LATERAL 2 VIEWS RAD - Routine (most inpatients and all outpatients) 06/09/2018 12:18 PM CDT Hoarseness THYROID FUNCTION CASCADE, S Routine 06/09/2018 12:06 PM CDT Xerosis 25-HYDROXYVITAMIN D2 AND D3, S Routine 06/09/2018 12:06 PM CDT Screening Osteoporosis DX TOES RIGHT 3 VIEWS RAD - Routine (most inpatients and all outpatients) 05/03/2018 3:38 PM CDT Swelling Toe MICROSCOPIC MANUAL Routine 01/05/2018 8:18 AM [employer]Y HOUSE ATTENDANT URINALYSIS WITH MICROSCOPIC IF INDICATED, U Routine 01/05/2018 8:18 AM DRY HOUSE ATTENDANT Dysuria BACTERIAL CULTURE, AEROBIC + SUSC, URINE Routine 01/05/2018 8:18 AM DRY HOUSE ATTENDANT Dysuria ECG Routine 12/23/2017 9:55 AM DRY HOUSE ATTENDANT Persistent Atrial Fibrillation MICROSCOPIC MANUAL Routine 10/19/2017 8:11 AM DRY HOUSE ATTENDANT URINALYSIS WITH MICROSCOPIC IF INDICATED, U Routine 10/19/2017 8:11 AM DRY HOUSE ATTENDANT Bleeding Postmenopausal SURGICAL PATHOLOGY Routine 10/06/2017 7:52 AM DRY HOUSE ATTENDANT Bleeding Postmenopausal Abnormal Ultrasound Endometrium OBSTETRICS AND GYNECOLOGY OFFICE VISIT (CLINIC) Routine 10/05/2017 6:11 PM DRY HOUSE ATTENDANT OH HYSTEROSCOPY DIAGNOSTIC Routine 10/05/2017 9:15 AM DRY HOUSE ATTENDANT Bleeding Postmenopausal Abnormal Ultrasound Endometrium (TTE) 2D LIMITED WITH COLOR AND LIMITED DOPPLER Routine 09/23/2017 1:10 PM DRY HOUSE ATTENDANT Regurgitation Mitral SURGICAL PATHOLOGY Routine 07/30/2017 11:25 AM CDT US PELVIS TRANSVAGINAL AND TRANSABDOMINAL Routine 07/23/2017 9:26 AM CDT BI BREAST SCREENING BILATERAL Routine 07/15/2017 8:51 AM CDT DX ELBOW LEFT 2 VIEWS Routine 07/09/2017 4:14 PM CDT HX LABORATORY - SCANNED Routine 06/02/20 17 12:00 AM CDT HX LABORATORY - SCANNED Routine 06/02/20 17 12:00 AM CDT ECG EVENT RECORDER Routine 05/18/2017 9:53 AM CDT ECG EVENT RECORDER Routine 05/14/2017 7:35 AM CDT ECG EVENT RECORDER Routine 05/11/2017 12:40 PM CDT ECG EVENT RECORDER Routine 04/28/2017 9:37 AM CDT ECG EVENT RECORDER Routine 04/21/2017 3:52 PM CDT ECG Routine 04/08/2017 9:48 AM CDT HEMOGLOBIN, B Routine 04/08/2017 9:22 AM CDT LIPID PANEL, S Routine 04/08/2017 9:22 AM CDT MAGNESIUM, S Routine 04/08/2017 9:22 AM CDT BASIC METABOLIC PANEL, S/P Routine 04/08/2017 9:22 AM CDT DIGOXIN LEVEL, S Routine 04/08/2017 9:22 AM CDT ECHOCARDIOLOGY IMAGE EXAM Routine 02/25/2017 11:24 AM CDT ECG Routine 02/25/2017 11:17 AM CDT ECHO TRANSTHORACIC (TTE) Routine 017 10:17 AM CDT ECHO TRANSTHORACIC (TTE) Routine 016 10:52 AM CDT ECHOCARDIOLOGY IMAGE EXAM Routine 09/17/2016 9:17 AM CDT LYME DISEASE SEROLOGY, S Routine 016 4:28 PM CDT AUTOMATED DIFFERENTIAL, B Routine 06/04/2016 2:47 PM CDT CBC WITH DIFFERENTIAL, B Routine 016 2:47 PM CDT NT-PRO B-TYPE NATRIURETIC PEPTIDE (BNP), S Routine 06/04/2016 2:47 PM CDT BASIC METABOLIC PANEL, S/P Routine 06/04/2016 2:47 PM CDT ECG HEART RHYTHM MONITOR (HOLTER) Routine 05/26/2016 8:51 AM CDT BI BREAST SCREENING BILATERAL Routine 05/21/2016 9:21 AM CDT NT-PRO B-TYPE NATRIURETIC PEPTIDE (BNP), S Routine 05/14/2016 10:28 AM CDT DX CHEST AP OR PA AND LATERAL 2 VIEWS Routine 05/14/2016 10:02 AM CDT AUTOMATED DIFFERENTIAL, B Routine 05/09/2016 9:22 AM CDT CBC WITH DIFFERENTIAL, B Routine 016 9:22 AM CDT BASIC METABOLIC PANEL, S/P Routine 05/09/2016 9:22 AM CDT AUTOMATED DIFFERENTIAL, B Routine 04/21/2016 3:39 PM CDT CBC WITH DIFFERENTIAL, B Routine 016 3:39 PM CDT THYROID FUNCTION CASCADE, S Routine 04/21/2016 3:39 PM CDT NT-PRO B-TYPE NATRIURETIC PEPTIDE (BNP), S Routine 04/21/2016 3:39 PM CDT BASIC METABOLIC PANEL, S/P Routine 04/21/2016 3:39 PM CDT ECHOCARDIOLOGY IMAGE EXAM Routine 03/05/2016 11:13 AM CDT ECHO TRANSTHORACIC (TTE) Routine 016 11:01 AM CDT PROTIME (PT/INR), POCT, B Routine 01/23/2016 12:32 PM DRY HOUSE ATTENDANT AUTOMATED DIFFERENTIAL, B Routine 01/16/2016 3:05 PM DRY HOUSE ATTENDANT CBC WITH DIFFERENTIAL, B Routine 016 3:05 PM DRY HOUSE ATTENDANT PROTIME (PT/INR), POCT, B Routine 01/15/2016 11:59 AM DRY HOUSE ATTENDANT CBC WITHOUT DIFFERENTIAL, B Routine 01/10/2016 9:24 AM DRY HOUSE ATTENDANT PROTIME (PT/INR), POCT, B Routine 01/08/2016 10:06 AM DRY HOUSE ATTENDANT PROTIME (PT/INR), POCT, B Routine 12/25/2015 9:53 AM DRY HOUSE ATTENDANT PROTIME (PT/INR), POCT, B Routine 12/25/2015 9:46 AM DRY HOUSE ATTENDANT PROTIME (PT/INR), POCT, B Routine 12/11/2015 8:28 AM DRY HOUSE ATTENDANT PROTIME (PT/INR), POCT, B Routine 11/27/2015 9:02 AM DRY HOUSE ATTENDANT ECG Routine 11/23/2015 1:29 PM DRY HOUSE ATTENDANT ECHOCARDIOLOGY IMAGE EXAM Routine 11/23/2015 12:45 PM DRY HOUSE ATTENDANT ECHO TRANSESOPHAGEAL (ANISH) Routine 11/23/2015 12:35 PM DRY HOUSE ATTENDANT ECG Routine 11/23/2015 12:27 PM DRY HOUSE ATTENDANT ACTIVATED PARTIAL THROMBOPLASTIN TIME (APTT), P Routine 11/23/2015 5:21 AM DRY HOUSE ATTENDANT PROTHROMBIN TIME (PT), P Routine 016 5:21 AM DRY HOUSE ATTENDANT ELECTROLYTE (CHEM 4) PANEL, S/P Routine 11/23/2015 5:21 AM DRY HOUSE ATTENDANT CBC WITHOUT DIFFERENTIAL, B Routine 11/23/2015 5:21 AM DRY HOUSE ATTENDANT ACTIVATED PARTIAL THROMBOPLASTIN TIME (APTT), P Routine 11/23/2015 12:10 AM DRY HOUSE ATTENDANT ACTIVATED PARTIAL THROMBOPLASTIN TIME (APTT), P Routine 11/22/2015 5:23 PM DRY HOUSE ATTENDANT ACTIVATED PARTIAL THROMBOPLASTIN TIME (APTT), P Routine 11/22/2015 11:53 AM DRY HOUSE ATTENDANT PROTHROMBIN TIME (PT), P Routine 016 6:38 AM DRY HOUSE ATTENDANT ALANINE AMINOTRANSFERASE (ALT), S/P Routine 11/22/2015 6:38 AM DRY HOUSE ATTENDANT ASPARTATE AMINOTRANSFERASE (AST), S/P Routine 11/22/2015 6:38 AM DRY HOUSE ATTENDANT BILIRUBIN, TOT, S/P Routine 11/22/2015 6:38 AM DRY HOUSE ATTENDANT ELECTROLYTE (CHEM 4) PANEL, S/P Routine 11/22/2015 6:38 AM DRY HOUSE ATTENDANT BILIRUBIN DIRECT, S/P Routine 11/22/2015 6:38 AM DRY HOUSE ATTENDANT ELECTROLYTE (CHEM 4) PANEL, S/P Routine 11/21/2015 12:16 PM DRY HOUSE ATTENDANT ECHOCARDIOLOGY IMAGE EXAM Routine 11/21/2015 9:19 AM DRY HOUSE ATTENDANT THYROID-STIMULATING HORMONE-SENSITIVE (S-TSH) Routine 11/21/2015 9:04 AM DRY HOUSE ATTENDANT ECHO TRANSTHORACIC (TTE) Routine 016 8:34 AM DRY HOUSE ATTENDANT PROCALCITONIN, S Routine 11/21/2015 2:35 AM DRY HOUSE ATTENDANT CARDIAC BIOMARKER PANEL, S Routine 11/21/2015 2:35 AM DRY HOUSE ATTENDANT ECG Routine 11/21/2015 2:16 AM DRY HOUSE [address] CT CHEST ANGIOGRAM AND PULMONARY ARTERIES WITH IV CONTRAST Routine 11/20/2015 9:22 PM DRY HOUSE ATTENDANT MICROSCOPIC MANUAL Routine 11/20/2015 7:11 PM DRY HOUSE ATTENDANT GRAM'S STAIN, CONFIRMATORY, U Routine 11/20/2015 7:11 PM DRY HOUSE ATTENDANT URINALYSIS WITH MICROSCOPIC Routine 11/20/2015 7:11 PM DRY HOUSE ATTENDANT DX CHEST AP OR PA AND LATERAL 2 VIEWS Routine 11/20/2015 5:58 PM DRY HOUSE ATTENDANT PROTHROMBIN TIME (PT), P Routine 016 5:28 PM DRY HOUSE ATTENDANT CBC WITH DIFFERENTIAL, B Routine 016 5:28 PM DRY HOUSE ATTENDANT PH BLOOD GAS Routine 11/20/2015 5:28 PM DRY HOUSE ATTENDANT MAGNESIUM, S Routine 11/20/2015 5:28 PM DRY HOUSE ATTENDANT BASIC METABOLIC PANEL, S/P Routine 11/20/2015 5:28 PM DRY HOUSE ATTENDANT CALCIUM, IONIZED, S/B Routine 11/20/2015 5:28 PM DRY HOUSE ATTENDANT LACTATE, POCT, B Routine 11/20/2015 5:20 PM DRY HOUSE ATTENDANT ECG Routine 11/20/2015 4:05 PM DRY HOUSE ATTENDANT PROTIME (PT/INR), POCT, B Routine 11/20/2015 11:17 AM DRY HOUSE ATTENDANT PROTIME (PT/INR), POCT, B Routine 11/06/2015 9:12 AM DRY HOUSE ATTENDANT AUTOMATED DIFFERENTIAL, B Routine 11/06/2015 8:35 AM DRY HOUSE ATTENDANT CBC WITH DIFFERENTIAL, B Routine 015 8:35 AM DRY HOUSE ATTENDANT BASIC METABOLIC PANEL, S/P Routine 11/06/2015 8:35 AM DRY HOUSE ATTENDANT DX CHEST AP OR PA AND LATERAL 2 VIEWS Routine 11/06/2015 8:07 AM DRY HOUSE ATTENDANT PROTIME (PT/INR), POCT, B Routine 10/29/2015 10:51 AM DRY HOUSE ATTENDANT AUTOMATED DIFFERENTIAL, B Routine 10/25/2015 3:58 PM DRY HOUSE ATTENDANT CBC WITH DIFFERENTIAL, B Routine 015 3:58 PM DRY HOUSE ATTENDANT BASIC METABOLIC PANEL, S/P Routine 10/25/2015 3:58 PM DRY HOUSE ATTENDANT PROTIME (PT/INR), POCT, B Routine 10/24/2015 12:15 PM DRY HOUSE ATTENDANT ECHOCARDIOLOGY IMAGE EXAM Routine 10/22/2015 1:02 PM DRY HOUSE ATTENDANT ECHO TRANSTHORACIC (TTE) Routine 12:59 PM DRY HOUSE ATTENDANT ECG Routine 10/22/2015 12:28 PM DRY HOUSE ATTENDANT DX CHEST AP OR PA AND LATERAL 2 VIEWS Routine 10/22/2015 8:59 AM DRY HOUSE ATTENDANT PROTHROMBIN TIME (PT), P Routine 015 4:50 AM DRY HOUSE ATTENDANT ELECTROLYTE (CHEM 4) PANEL, S/P Routine 10/22/2015 4:50 AM DRY HOUSE ATTENDANT CBC WITHOUT DIFFERENTIAL, B Routine 10/22/2015 4:50 AM DRY HOUSE ATTENDANT ECG Routine 10/21/2015 8:05 PM DRY HOUSE ATTENDANT PROTHROMBIN TIME (PT), P Routine 015 12:49 PM DRY HOUSE ATTENDANT PROTHROMBIN TIME (PT), P Routine 015 8:42 AM DRY HOUSE ATTENDANT ELECTROLYTE (CHEM 4) PANEL, S/P Routine 10/21/2015 8:42 AM DRY HOUSE ATTENDANT CBC WITHOUT DIFFERENTIAL, B Routine 10/21/2015 8:42 AM DRY HOUSE ATTENDANT ECG Routine 10/21/2015 8:17 AM DRY HOUSE ATTENDANT ELECTROLYTE (CHEM 4) PANEL, S/P Routine 10/21/2015 6:16 AM DRY HOUSE ATTENDANT ACTIVATED PARTIAL THROMBOPLASTIN TIME (APTT), P Routine 10/21/2015 6:16 AM DRY HOUSE ATTENDANT CBC WITHOUT DIFFERENTIAL, B Routine 10/21/2015 6:16 AM DRY HOUSE ATTENDANT PROTHROMBIN TIME (PT), P Routine 015 6:16 AM DRY HOUSE ATTENDANT MAGNESIUM, S Routine 10/21/2015 6:16 AM DRY HOUSE ATTENDANT ACTIVATED PARTIAL THROMBOPLASTIN TIME (APTT), P Routine 10/20/2015 4:42 AM DRY HOUSE ATTENDANT CBC WITHOUT DIFFERENTIAL, B Routine 10/20/2015 4:42 AM DRY HOUSE ATTENDANT PROTHROMBIN TIME (PT), P Routine 015 4:42 AM DRY HOUSE ATTENDANT ELECTROLYTE (CHEM 4) PANEL, S/P Routine 10/20/2015 4:42 AM DRY HOUSE ATTENDANT ECG Routine 10/19/2015 7:27 AM DRY HOUSE ATTENDANT PROTHROMBIN TIME (PT), P Routine 015 12:22 AM DRY HOUSE ATTENDANT ACTIVATED PARTIAL THROMBOPLASTIN TIME (APTT), P Routine 10/19/2015 12:22 AM DRY HOUSE ATTENDANT ELECTROLYTE (CHEM 4) PANEL, S/P Routine 10/19/2015 12:21 AM DRY HOUSE ATTENDANT CBC WITHOUT DIFFERENTIAL, B Routine 10/19/2015 12:21 AM DRY HOUSE ATTENDANT ECG Routine 10/18/2015 6:50 PM DRY HOUSE ATTENDANT ACTIVATED PARTIAL THROMBOPLASTIN TIME (APTT), P Routine 10/18/2015 5:16 PM DRY HOUSE ATTENDANT BASIC METABOLIC PANEL, S/P Routine 10/18/2015 5:10 PM DRY HOUSE ATTENDANT ECG Routine 10/18/2015 7:48 AM DRY HOUSE ATTENDANT ELECTROLYTE (CHEM 4) PANEL, S/P Routine 10/18/2015 4:38 AM DRY HOUSE ATTENDANT CBC WITHOUT DIFFERENTIAL, B Routine 10/18/2015 4:38 AM DRY HOUSE ATTENDANT PROTHROMBIN TIME (PT), P Routine 015 4:38 AM DRY HOUSE ATTENDANT GLUCOSE POCT, B Routine 10/17/2015 12:17 PM DRY HOUSE ATTENDANT ECG Routine 10/17/2015 10:52 AM DRY HOUSE ATTENDANT GLUCOSE POCT, B Routine 10/17/2015 6:23 AM DRY HOUSE ATTENDANT PROTHROMBIN TIME (PT), P Routine 015 3:57 AM DRY HOUSE ATTENDANT ELPN WITH CREATININE JUNO, P Routine 10/17/2015 3:57 AM DRY HOUSE ATTENDANT CBC WITHOUT DIFFERENTIAL, B Routine 10/17/2015 3:57 AM DRY HOUSE ATTENDANT GLUCOSE POCT, B Routine 10/16/2015 10:17 PM DRY HOUSE ATTENDANT GLUCOSE POCT, B Routine 10/16/2015 5:24 PM DRY HOUSE ATTENDANT GLUCOSE POCT, B Routine 10/16/2015 12:09 PM DRY HOUSE ATTENDANT GLUCOSE POCT, B Routine 10/16/2015 11:14 AM DRY HOUSE ATTENDANT GLUCOSE POCT, B Routine 10/16/2015 10:03 AM DRY HOUSE ATTENDANT GLUCOSE POCT, B Routine 10/16/2015 8:57 AM DRY HOUSE ATTENDANT GLUCOSE POCT, B Routine 10/16/2015 8:17 AM DRY HOUSE ATTENDANT GLUCOSE POCT, B Routine 10/16/2015 7:08 AM DRY HOUSE ATTENDANT GLUCOSE POCT, B Routine 10/16/2015 6:19 AM DRY HOUSE ATTENDANT DX CHEST PORTABLE 1 VIEW Routine 015 5:18 AM DRY HOUSE ATTENDANT GLUCOSE POCT, B Routine 10/16/2015 5:03 AM DRY HOUSE ATTENDANT GLUCOSE POCT, B Routine 10/16/2015 4:12 AM DRY HOUSE ATTENDANT CBC WITHOUT DIFFERENTIAL, B Routine 10/16/2015 3:22 AM DRY HOUSE ATTENDANT ABG W/COOX Routine 10/16/2015 3:22 AM DRY HOUSE ATTENDANT ELPN WITH CREATININE JUNO, P Routine 10/16/2015 3:22 AM DRY HOUSE ATTENDANT PROTHROMBIN TIME (PT), P Routine 015 3:22 AM DRY HOUSE ATTENDANT ACTIVATED PARTIAL THROMBOPLASTIN TIME (APTT), P Routine 10/16/2015 3:22 AM DRY HOUSE ATTENDANT GLUCOSE POCT, B Routine 10/16/2015 3:18 AM DRY HOUSE ATTENDANT GLUCOSE POCT, B Routine 10/16/2015 2:06 AM DRY HOUSE ATTENDANT GLUCOSE POCT, B Routine 10/16/2015 1:17 AM DRY HOUSE ATTENDANT LACTATE, B/P Routine 10/16/2015 12:29 AM DRY HOUSE ATTENDANT ABG W/COOX Routine 10/16/2015 12:29 AM DRY HOUSE ATTENDANT GLUCOSE POCT, B Routine 10/16/2015 12:28 AM DRY HOUSE ATTENDANT GLUCOSE POCT, B Routine 10/15/2015 11:04 PM DRY HOUSE ATTENDANT ABG W/COOX Routine 10/15/2015 10:24 PM DRY HOUSE ATTENDANT LACTATE, B/P Routine 10/15/2015 10:24 PM DRY HOUSE ATTENDANT POTASSIUM, B Routine 10/15/2015 10:24 PM DRY HOUSE ATTENDANT GLUCOSE POCT, B Routine 10/15/2015 10:22 PM DRY HOUSE ATTENDANT ECG Routine 10/15/2015 8:57 PM DRY HOUSE ATTENDANT CALCIUM, IONIZED, S/B Routine 10/15/2015 8:22 PM DRY HOUSE ATTENDANT POTASSIUM, B Routine 10/15/2015 8:22 PM DRY HOUSE ATTENDANT PH BLOOD GAS Routine 10/15/2015 8:22 PM DRY HOUSE ATTENDANT LACTATE, B/P Routine 10/15/2015 8:22 PM DRY HOUSE ATTENDANT GLUCOSE POCT, B Routine 10/15/2015 8:12 PM DRY HOUSE ATTENDANT ABG W/COOX Routine 10/15/2015 7:16 PM DRY HOUSE ATTENDANT GLUCOSE POCT, B Routine 10/15/2015 7:15 PM DRY HOUSE ATTENDANT POTASSIUM, B Routine 10/15/2015 6:26 PM DRY HOUSE ATTENDANT GLUCOSE POCT, B Routine 10/15/2015 6:25 PM DRY HOUSE ATTENDANT ABG W/COOX Routine 10/15/2015 5:10 PM DRY HOUSE ATTENDANT GLUCOSE POCT, B Routine 10/15/2015 5:09 PM DRY HOUSE ATTENDANT DX CHEST PORTABLE 1 VIEW Routine 015 4:16 PM DRY HOUSE ATTENDANT POTASSIUM, S/P Routine 10/15/2015 4:11 PM DRY HOUSE ATTENDANT GLUCOSE POCT, B Routine 10/15/2015 4:10 PM DRY HOUSE ATTENDANT FIBRINOGEN, P Routine 10/15/2015 3:30 PM DRY HOUSE ATTENDANT ACTIVATED PARTIAL THROMBOPLASTIN TIME (APTT), P Routine 10/15/2015 3:30 PM DRY HOUSE ATTENDANT CBC WITHOUT DIFFERENTIAL, B Routine 10/15/2015 3:30 PM DRY HOUSE ATTENDANT ELPN WITH CREATININE JUNO, P Routine 10/15/2015 3:30 PM DRY HOUSE ATTENDANT PROTHROMBIN TIME (PT), P Routine 015 3:30 PM DRY HOUSE ATTENDANT ABG W/COOX Routine 10/15/2015 3:30 PM DRY HOUSE ATTENDANT ACT, POCT, B Routine 10/15/2015 3:29 PM DRY HOUSE ATTENDANT THROMBOELASTOGRAPH, KAOLIN, B Routine 10/15/2015 3:29 PM DRY HOUSE ATTENDANT GLUCOSE POCT, B Routine 10/15/2015 3:27 PM DRY HOUSE ATTENDANT SODIUM, S/P Routine 10/15/2015 2:25 PM DRY HOUSE ATTENDANT GLUCOSE, WHOLE BLOOD Routine 10/15/2015 2:25 PM DRY HOUSE ATTENDANT ABG W/COOX Routine 10/15/2015 2:25 PM DRY HOUSE ATTENDANT CALCIUM, IONIZED, S/B Routine 10/15/2015 2:25 PM DRY HOUSE ATTENDANT POTASSIUM, B Routine 10/15/2015 2:25 PM DRY HOUSE ATTENDANT FIBRINOGEN, P Routine 10/15/2015 2:25 PM DRY HOUSE ATTENDANT PROTHROMBIN TIME (PT), P Routine 015 2:25 PM DRY HOUSE ATTENDANT PLATELETS, B Routine 10/15/2015 2:25 PM DRY HOUSE ATTENDANT LACTATE, B/P Routine 10/15/2015 2:25 PM DRY HOUSE ATTENDANT PREPARE PLATELETS Routine 10/15/2015 2:03 PM DRY HOUSE ATTENDANT PREPARE FRESH FROZEN PLASMA Routine 10/15/2015 1:56 PM DRY HOUSE ATTENDANT PLATELETS, B Routine 10/15/2015 1:42 PM DRY HOUSE ATTENDANT PROTHROMBIN TIME (PT), P Routine 015 1:42 PM DRY HOUSE ATTENDANT FIBRINOGEN, P Routine 10/15/2015 1:42 PM DRY HOUSE ATTENDANT THROMBOELASTOGRAPH, KAOLIN, B Routine 10/15/2015 1:42 PM DRY HOUSE ATTENDANT ACTIVATED PARTIAL THROMBOPLASTIN TIME (APTT), P Routine 10/15/2015 1:42 PM DRY HOUSE ATTENDANT CALCIUM, IONIZED, S/B Routine 10/15/2015 1:42 PM DRY HOUSE ATTENDANT LACTATE, B/P Routine 10/15/2015 1:42 PM DRY HOUSE ATTENDANT GLUCOSE, WHOLE BLOOD Routine 10/15/2015 1:42 PM DRY HOUSE ATTENDANT POTASSIUM, B Routine 10/15/2015 1:42 PM DRY HOUSE ATTENDANT SODIUM, S/P Routine 10/15/2015 1:42 PM DRY HOUSE ATTENDANT ABG W/COOX Routine 10/15/2015 1:42 PM DRY HOUSE ATTENDANT ACT, POCT, B Routine 10/15/2015 1:40 PM DRY HOUSE ATTENDANT HEMOGLOBIN (HGB), POCT, B Routine 10/15/2015 1:39 PM DRY HOUSE ATTENDANT ACT, POCT, B Routine 10/15/2015 1:06 PM DRY HOUSE ATTENDANT GLUCOSE POCT, B Routine 10/15/2015 1:05 PM DRY HOUSE ATTENDANT HEMOGLOBIN (HGB), POCT, B Routine 10/15/2015 1:05 PM DRY HOUSE ATTENDANT ACT, POCT, B Routine 10/15/2015 12:29 PM DRY HOUSE ATTENDANT GLUCOSE POCT, B Routine 10/15/2015 12:28 PM DRY HOUSE ATTENDANT HEMOGLOBIN (HGB), POCT, B Routine 10/15/2015 12:28 PM DRY HOUSE ATTENDANT ACT, POCT, B Routine 10/15/2015 12:03 PM DRY HOUSE ATTENDANT GLUCOSE POCT, B Routine 10/15/2015 12:03 PM DRY HOUSE ATTENDANT HEMOGLOBIN (HGB), POCT, B Routine 10/15/2015 12:02 PM DRY HOUSE ATTENDANT HXGENERAL PATHOLOGY REPORT Routine 10/15/2015 11:34 AM DRY HOUSE ATTENDANT ACT, POCT, B Routine 10/15/2015 11:31 AM DRY HOUSE ATTENDANT LACTATE, B/P Routine 10/15/2015 11:25 AM DRY HOUSE ATTENDANT CALCIUM, IONIZED, S/B Routine 10/15/2015 11:25 AM DRY HOUSE ATTENDANT SODIUM, S/P Routine 10/15/2015 11:25 AM DRY HOUSE ATTENDANT GLUCOSE, WHOLE BLOOD Routine 10/15/2015 11:25 AM DRY HOUSE ATTENDANT POTASSIUM, B Routine 10/15/2015 11:25 AM DRY HOUSE ATTENDANT ABG W/COOX Routine 10/15/2015 11:25 AM DRY HOUSE ATTENDANT ACT, POCT, B Routine 10/15/2015 10:54 AM DRY HOUSE ATTENDANT ACT, POCT, B Routine 10/15/2015 10:18 AM DRY HOUSE ATTENDANT HEMOGLOBIN (HGB), POCT, B Routine 10/15/2015 10:17 AM DRY HOUSE ATTENDANT ECHO TRANSESOPHAGEAL (ANISH) Routine 10/15/2015 10:05 AM DRY HOUSE ATTENDANT HXINTRA-OP AUTO TX Routine 10/15/2015 10:05 AM DRY HOUSE ATTENDANT CALCIUM, IONIZED, S/B Routine 10/15/2015 9:26 AM DRY HOUSE ATTENDANT POTASSIUM, B Routine 10/15/2015 9:26 AM DRY HOUSE ATTENDANT LACTATE, B/P Routine 10/15/2015 9:26 AM DRY HOUSE ATTENDANT GLUCOSE, WHOLE BLOOD Routine 10/15/2015 9:26 AM DRY HOUSE ATTENDANT ABG W/COOX Routine 10/15/2015 9:26 AM DRY HOUSE ATTENDANT SODIUM, S/P Routine 10/15/2015 9:26 AM DRY HOUSE ATTENDANT ACT, POCT, B Routine 10/15/2015 9:20 AM DRY HOUSE ATTENDANT ANESTHESIOLOGY IMAGE EXAM Routine 10/15/2015 9:09 AM DRY HOUSE ATTENDANT ECHOCARDIOLOGY IMAGE EXAM Routine 10/15/2015 7:44 AM DRY HOUSE ATTENDANT CARDIOLOGY IMAGE EXAM Routine 10/12/2015 8:45 AM DRY HOUSE ATTENDANT CARDIAC CATHETERIZATION Routine 10/12/20 15 8:36 AM DRY HOUSE ATTENDANT CARDIAC CATHETERIZATION REPORT TEXT Routine 10/12/2015 8:36 AM DRY HOUSE ATTENDANT ABORH, RBC Routine 10/12/2015 7:27 AM DRY HOUSE ATTENDANT ANTIBODY SCREEN, B Routine 10/12/2015 7:27 AM DRY HOUSE ATTENDANT BASIC METABOLIC PANEL (BMP), POCT, B Routine 10/04/2015 11:07 AM DRY HOUSE ATTENDANT NT-PRO B-TYPE NATRIURETIC PEPTIDE (BNP), S Routine 10/04/2015 11:07 AM DRY HOUSE ATTENDANT ACTIVATED PARTIAL THROMBOPLASTIN TIME (APTT), P Routine 09/23/2015 6:42 AM DRY HOUSE ATTENDANT CBC WITHOUT DIFFERENTIAL, B Routine 09/23/2015 6:42 AM DRY HOUSE ATTENDANT ELECTROLYTE (CHEM 4) PANEL, S/P Routine 09/23/2015 6:42 AM DRY HOUSE ATTENDANT MAGNESIUM, S Routine 09/22/2015 8:31 AM DRY HOUSE ATTENDANT ACTIVATED PARTIAL THROMBOPLASTIN TIME (APTT), P Routine 09/22/2015 8:31 AM DRY HOUSE ATTENDANT CBC WITHOUT DIFFERENTIAL, B Routine 09/22/2015 8:31 AM DRY HOUSE ATTENDANT ACTIVATED PARTIAL THROMBOPLASTIN TIME (APTT), P Routine 09/21/2015 11:25 PM DRY HOUSE ATTENDANT MICROSCOPIC MANUAL Routine 09/21/2015 8:50 PM DRY HOUSE ATTENDANT GRAM'S ST, U Routine 09/21/2015 8:50 PM DRY HOUSE ATTENDANT URINALYSIS WITH MICROSCOPIC Routine 09/21/2015 8:50 PM DRY HOUSE ATTENDANT HX MICROBIOLOGY REPORTS Routine 09/21/20 15 4:01 PM DRY HOUSE ATTENDANT ELECTROLYTE (CHEM 4) PANEL, S/P Routine 09/21/2015 3:52 PM DRY HOUSE ATTENDANT MAGNESIUM, S Routine 09/21/2015 3:52 PM DRY HOUSE ATTENDANT ACTIVATED PARTIAL THROMBOPLASTIN TIME (APTT), P Routine 09/21/2015 3:52 PM DRY HOUSE ATTENDANT HX MICROBIOLOGY REPORTS Routine 09/21/20 15 3:52 PM DRY HOUSE ATTENDANT THYROID FUNCTION CASCADE, S Routine 09/21/2015 10:36 AM DRY HOUSE ATTENDANT PROTHROMBIN TIME (PT), P Routine 10:36 AM DRY HOUSE ATTENDANT CBC WITHOUT DIFFERENTIAL, B Routine 09/21/2015 10:35 AM DRY HOUSE ATTENDANT ECG Routine 09/21/2015 10:19 AM DRY HOUSE ATTENDANT OUTSIDE DX CHEST Routine 09/21/2015 6:08 AM DRY HOUSE ATTENDANT ECHO TRANSTHORACIC (TTE) Routine 9:57 AM CDT MERCURY, B Routine 09/05/2015 9:55 AM CDT ECHOCARDIOLOGY IMAGE EXAM Routine 09/05/2015 9:25 AM CDT BACTERIAL CULTURE, AEROBIC, URINE Routine 09/03/2015 3:37 PM CDT URINALYSIS, MIDSTREAM, WITH CULTURE IF INDICATED Routine 09/03/2015 3:07 PM CDT DX CHEST AP OR PA AND LATERAL 2 VIEWS Routine 09/03/2015 3:03 PM CDT AUTOMATED DIFFERENTIAL, B Routine 09/03/2015 2:56 PM CDT CBC WITH DIFFERENTIAL, B Routine 015 2:56 PM CDT MERCURY, B Routine 09/03/2015 2:56 PM CDT NT-PRO B-TYPE NATRIURETIC PEPTIDE (BNP), S Routine 09/03/2015 2:56 PM CDT THYROID FUNCTION CASCADE, S Routine 09/03/2015 2:56 PM CDT VITAMIN B12 AND FOLATE, S Routine 09/03/2015 2:56 PM CDT HEPATIC FUNCTION PANEL, S Routine 09/03/2015 2:56 PM CDT BASIC METABOLIC PANEL, S/P Routine 09/03/2015 2:56 PM CDT ECHOCARDIOLOGY IMAGE EXAM Routine 01/06/2013 12:33 PM DRY HOUSE ATTENDANT ECHO TRANSTHORACIC (TTE) Routine 013 12:26 PM DRY HOUSE ATTENDANT URINALYSIS WITH MICROSCOPIC Routine 01/06/2013 9:43 AM DRY HOUSE ATTENDANT THYROID-STIMULATING HORMONE-SENSITIVE (S-TSH) Routine 01/06/2013 9:35 AM DRY HOUSE ATTENDANT LIPID PANEL, S Routine 01/06/2013 9:35 AM DRY HOUSE ATTENDANT BASIC METABOLIC PANEL, S/P Routine 01/06/2013 9:35 AM DRY HOUSE ATTENDANT BI BREAST SCREENING BILATERAL Routine 08/11/2011 4:38 PM CDT ECHOCARDIOLOGY IMAGE EXAM Routine 06/12/2011 10:54 AM CDT ECHOCARDIOGRAM Routine 06/12/2011 10:48 AM CDT ECHO TRANSTHORACIC (TTE) Routine 011 10:48 AM CDT US PELVIS TRANSVAGINAL AND TRANSABDOMINAL Routine 06/12/2011 9:35 AM CDT THINPREP SCREEN HPV REFLEX Routine 06/09/2011 9:42 AM CDT SURGICAL PATHOLOGY Routine 11/11/2010 4:38 PM DRY HOUSE ATTENDANT ECHOCARDIOLOGY IMAGE EXAM Routine 06/13/2010 9:16 AM CDT ECHOCARDIOGRAM Routine 06/13/2010 9:02 AM CDT BI BREAST DIAGNOSTIC LEFT ADDITIONAL VIEWS Routine 05/30/2009 3:58 PM CDT BI BREAST SCREENING BILATERAL Routine 05/24/2009 10:00 AM CDT RADIOLOGY IMAGE EXAM Routine 05/24/2009 9:43 AM CDT ECHOCARDIOLOGY IMAGE EXAM Routine 05/24/2009 9:02 AM CDT ECHOCARDIOGRAM Routine 05/24/2009 8:53 AM CDT ECHOCARDIOLOGY IMAGE EXAM Routine 06/01/2008 2:23 PM CDT ECHOCARDIOGRAM Routine 06/01/2008 2:06 PM CDT ECG HEART RHYTHM MONITOR (HOLTER) Routine 05/22/2008 8:15 AM CDT RADIOLOGY IMAGE EXAM Routine 04/20/2008 8:56 AM CDT CYTOLOGY Routine 03/25/2005 9:50 AM CDT DX ABDOMEN 1 VIEW Routine 03/25/2005 9:43 AM CDT OBSTETRICS AND GYNECOLOGY IMAGE EXAM Routine 03/25/2005 9:10 AM CDT HXGENERAL PATHOLOGY REPORT Routine 03/25/2005 9:07 AM CDT PATHOLOGY IMAGE EXAM Routine 03/25/2005 9:07 AM CDT HXSTAN SURG BLD ORDER Routine 03/25/2005 5:05 AM CDT ABORH, RBC Routine 03/05/2005 10:40 AM CDT DX CHEST AP OR PA AND LATERAL 2 VIEWS Routine 03/05/2005 8:56 AM CDT ECG Routine 03/05/2005 8:20 AM CDT US ABDOMEN PELVIS VESSELS LIMITED DOPPLER Routine 03/04/2005 9:26 AM CDT US PELVIS TRANSVAGINAL AND TRANSABDOMINAL Routine 03/04/2005 9:26 AM CDT US PELVIS TRANSVAGINAL AND TRANSABDOMINAL Routine 01/20/2005 9:47 AM DRY HOUSE ATTENDANT RADIOLOGY IMAGE EXAM Routine 11/06/2004 2:48 PM DRY HOUSE ATTENDANT DX OUTSIDE IMAGE INTERPRETATION Routine 11/04/2004 11:35 AM DRY HOUSE ATTENDANT US ABDOMEN LIMITED Routine 11/01/2004 2:08 PM DRY HOUSE ATTENDANT US PELVIS TRANSVAGINAL AND TRANSABDOMINAL Routine 11/01/2004 2:08 PM DRY HOUSE ATTENDANT ECHOCARDIOGRAM Routine 07/24/2004 9:39 AM CDT Results * BMD Bone Density Spine Hips (08/29/2025 3:12 PM CDT) Only the most recent of4 resultswithin the time period is included. Anatomical Region Laterality Modality Hip, Lumbar Spine, Nuclear M edicine RST LOS, Musculoskeletal ARZ LOS, Muskuloskeletal FLA LOS N/A Radio graphic Imaging Impressions 08/29/2025 4:18 PM CDT Osteoporosis AP Spine (region: L1-L4 (L2,L3)) Narrative 08/29/2025 4:18 PM CDT EXAM: BMD BONE DENSITY SPINE HIPS Bone Mineral Density (BMD) analysis performed on [employer] with serial number [id number]. COMPARISON: Serial Comparisons Left Total Hip results: [...] including images and graphs, is available in [facility]. In the absence of other causes of [...] Bone Mineral Density (BMD) analysis performed on [employer] withserial number [id number]. COMPARISON: Serial Comparisons Left Total Hip results: [...] report, including images and graphs,is available in [email or web address]. In the absence of other causes of [...] M.D. IMG DXA PROCEDU RES Final Result * ECG 12 Lead (08/24/2025 10:04 AM CDT) Only the most recent of47 resultswithin the time period is included. Ventricular Rate ECG/Min 134 BPM MUSE QRSD Interval 106 ms MUSE QT Interval 328 ms MUSE QTC Interval 489 ms MUSE R [place] -65 degrees MUSE T Wave [place] 95 degrees MUSE 08/24/2025 10:0 4 AM CDT 08/24/2025 10:19 AM CDT Impressions MUSE - 08/24/2025 10:19 AM CDT Atrial fibrillation with rapid ventricular response Left anterior fascicular block Moderate voltage criteria for LVH, may be normal variant Nonspecific ST and T wave abnormality When compared with ECG of 21-Jul-2025 09:06, Incomplete right bundle branch block is no longer present Reviewed by MONALISA Neff Narrative Procedure Note Aron Steinberg M.D., Ph.D. - 08/24/2025 IMPRESSION: Atrial fibrillation with rapid ventricular response Left anterior fascicular block Moderate voltage criteria for LVH, may be normal variant Nonspecific ST and T wave abnormality When compared with ECG of 21-Jul-2025 09:06, Incomplete right bundle branch block is no longer present Reviewed by MONALISA Neff Perry Lozano M.D., M.P.H. ECG ORDERABLES Brii l Result MUSE NA * DX Chest AP or PA and Lateral 2 Views (08/24/2025 8:49 AM CDT) Only the most recent of10 resultswithin the time period is included. Anatomical Region Laterality Modality Chest, Thoracic RST [...] IMG DIAGNOSTIC IMAGI NG PROCEDURES Final Result * Thyroid Function [place] (08/24/2025 8:36 AM CDT) Only the most recent of8 resultswithin the time period is included. TSH, Sensitive 2.3 0.3 - 4.2 mIU/L 08/24/2025 9:55 AM CDT DTL Blood (Blood, Venous) 08/24/2025 8:36 AM CDT 08/24/2025 8:55 AM CDT Perry Lozano M.D., M.P.H. LAB BLOOD ADD-ON Fin al Result [facility] [address] [place] [address], [facility] [address] [place] [address] * CBC without Differential (08/24/2025 8:36 AM CDT) Only the most recent of21 resultswithin the time period is included. Pathologist [facility] Hemoglobin 13.3 11.6 - 15.0 g/dL 08/24/2025 [...] M.P.H. LAB BLOOD ADD-ON Fin al Result [facility] [address] [place] [address], [facility] [address] [place] [address] * (ABNORMAL) Basic Metabolic Panel (08/24/2025 8:36 AM CDT) Only the most recent of26 resultswithin the time period is included. Pathologist [facility] Potassium, S 4.0 3.6 - 5.2 mmol/L [...] M.P.H. LAB BLOOD ADD-ON Fin al Result [facility] [address] [place] [address], [place] [facility] [address] [place] [address] * (TTE) 2D ECHO DOPPLER COLOR AND [...] atrial level shunt by color flow imaging. Hzbj-[id number] shunt at atrial level. No intracardiac mass [...] regurgitation , eccentric septally directed jet. 9. Wqca-in-fcxgr shunt at atrial level at the site [...] valve regurgitation , eccentric septallydirected jet. 9. Qssy-av-cllvd shunt at atrial level at the site [...] for atrial level shunt bycolor flow imaging. Ebpa-xb-kvxee shunt at atrial level. No intracardiacmass or thrombus, but the left atrial appendage cannot be visualizedadequately with transthoracic echo to exclude thrombus in this location.No pericardial effusion. For the complete report, see the Order-Level Documents. Perry Lozano M.D., M.P.H. CV ECHO PROCEDURES F inal Result * Optical Coherence Tomography - Macula/Retina - OU - Both Eyes (03/29/2025 10:55 AM CDT) Narrative OPHTHALMOLOGY IMAGING EXAM - 03/29/2025 11:19 AM CDT Right Eye OCT device used was Spectralis . Left Eye OCT device used was Spectralis . Notes SNZ See note for interpretation Sam Manning M.D. OPHTH TOMOGRAPHY Final Result OPHTHALMOLOGY IMAGING EXAM * Eyes Spectralis OCT-Ophthalmology Image Exam (03/29/2025 12:00 AM CDT) Only the most recent of4 resultswithin the time period is included. Narrative IIIL - 03/29/2025 10:58 AM CDT This order has been created and auto-finalized to support the import of images acquired without order. The clinical documentation to support these images can be found on the encounter that produced images. us Provider Not In System IMG NON RAD IMAGING PROCE DURES Final Result IIMS NA * Perianal Area-Dermatology Image Exam (01/02/2025 12:05 AM DRY HOUSE ATTENDANT) Only the most recent of2 resultswithin the time period is included. Narrative IIIL - 01/03/2025 9:02 AM DRY HOUSE ATTENDANT This order has been created and auto-finalized to support the import of images acquired without order. The clinical documentation to support these images can be found on the encounter that produced images. us Provider Not In System IMG NON RAD IMAGING PROCE DURES Final Result Performing Organization Address [facility] de Phone Number IIMS NA * Optical Coherence Tomography - Macula/Retina - OU - Both Eyes (12/27/2024 10:40 AM DRY HOUSE ATTENDANT) Narrative OPHTHALMOLOGY IMAGING EXAM - 01/02/2025 11:24 AM DRY HOUSE ATTENDANT Right Eye Reliability was good. OCT device used was Spectralis . Left Eye Reliability was good. OCT device used was Spectralis . Notes Standard scans - LSA See note for interpretation Result [facility] Sam Manning M.D. OPHTH TOMOGRAPHY Final Result Performing Organization Address [facility] de Phone Number OPHTHALMOLOGY IMAGING EXAM * Automated VF - Extended - OU - Both Eyes (12/27/2024 9:19 AM DRY HOUSE ATTENDANT) Narrative OPHTHALMOLOGY IMAGING EXAM - 01/02/2025 11:24 AM DRY HOUSE ATTENDANT Right Eye Automated visual field device used was Zeiss. Strategy was AVE. Threshold was 24-2. Eyelid was untaped. Left Eye Automated visual field device used was Zeiss. Strategy was AVE. Threshold was 24-2. Eyelid was untaped. Notes See note for interpretation Result [facility] Sam Manning M.D. OPHTH VISUAL FIELD Fin al Result Performing Organization Address [facility] de Phone Number OPHTHALMOLOGY IMAGING EXAM * Anus 537-Colon And Rectal Surgery Image Exam (12/20/2024 11:15 AM DRY HOUSE ATTENDANT) 12/20/2024 11:1 2 AM DRY HOUSE ATTENDANT Narrative IIMS - 12/20/2024 11:15 AM DRY HOUSE ATTENDANT This order has been created and auto-finalized to support the import of images acquired without order. The clinical documentation to support these images can be found on the encounter that produced images. Provider Not In System IMG NON RAD IMAGING PROCE DURES Final Result IIMS NA * Hand, Right-Physical Medicine And Rehab Image Exam (12/06/2024 9:15 AM DRY HOUSE ATTENDANT) Only the most recent of3 resultswithin the time period is included. 12/06/2024 9:12 AM DRY HOUSE ATTENDANT Narrative IIMS - 12/06/2024 9:15 AM DRY HOUSE ATTENDANT This order has been created and auto-finalized to support the import of images acquired without order. The clinical documentation to support these images can be found on the encounter that produced images. us Provider Not In System IMG NON RAD IMAGING PROCE DURES Final Result Performing Organization Address [facility] de Phone Number IIIL NA * Magnesium (12/06/2024 7:49 AM DRY HOUSE ATTENDANT) Only the most recent of12 resultswithin the time period is included. Magnesium, S 2.1 1.7 - 2.3 mg/dL 12/06/2024 9:18 AM DRY HOUSE ATTENDANT DTL Blood (Blood, Venous) 12/06/2024 7:49 AM DRY HOUSE ATTENDANT 12/06/2024 9:00 AM DRY HOUSE ATTENDANT us Danae Pyle P.A.-C. LAB BLOOD ADD-ON Final Resu lt Performing Organization Address [facility] [place] [address], [place] [address] * (ABNORMAL) CBC with Differential, Blood (12/05/2024 6:30 AM DRY HOUSE ATTENDANT) Only the most recent of17 resultswithin the time period is included. Hemoglobin 12.1 11.6 - 15.0 g/dL 12/05/2024 7:21 AM DRY HOUSE ATTENDANT DTL Hematocrit 35.5 35.5 - 44.9 % 12/05/2024 7:21 AM DRY HOUSE ATTENDANT DTL Erythrocytes 3.83(L) 3.92 - 5.13 x10(12)/L 12/05/2024 7:21 AM DRY HOUSE ATTENDANT DTL MCV 92.7 78.2 - 97.9 fL 12/05/2024 7:21 AM DRY HOUSE ATTENDANT DTL RBC Distrib Width 14.4 12.2 - 16.1 % 12/05/2024 7:21 AM DRY HOUSE ATTENDANT DTL Platelet Count 216 157 - 371 x10(9)/L 12/05/2024 7:21 AM DRY HOUSE ATTENDANT DTL Leukocytes 5.5 3.4 - 9.6 x10(9)/L 12/05/2024 7:21 AM DRY HOUSE ATTENDANT DTL Neutrophils 3.48 1.56 - 6.45 x10(9)/L 12/05/2024 7:21 AM DRY HOUSE ATTENDANT DHPM Lymphocytes 0.97 0.95 - 3.07 x10(9)/L 12/05/2024 7:21 AM DRY HOUSE ATTENDANT DTL Monocytes 0.74 0.26 - 0.81 x10(9)/L 12/05/2024 7:21 AM DRY HOUSE ATTENDANT DTL Eosinophils 0.23 0.03 - 0.48 x10(9)/L 12/05/2024 7:21 AM DRY HOUSE ATTENDANT DTL Basophils 0.04 0.01 - 0.08 x10(9)/L 12/05/2024 7:21 AM DRY HOUSE ATTENDANT DTL Blood (Blood, Venous) 12/05/2024 6:30 AM DRY HOUSE ATTENDANT 12/05/2024 7:01 AM DRY HOUSE ATTENDANT us Lexie Eldridge APRN, C.N.P. LAB BLOOD ADD-ON Final Result [facility] [address] [place] [address], [place] D[facility] [address] [place] [address] [facility] [address] [place] [address] * Hand-Cardiology Encounter Image Exam (12/03/2024 9:55 AM DRY HOUSE ATTENDANT) Only the most recent of2 resultswithin the time period is included. 12/03/2024 9:54 AM DRY HOUSE ATTENDANT Narrative IIMS - 12/03/2024 9:57 AM DRY HOUSE ATTENDANT This order has been created and auto-finalized to support the import of images acquired without order. The clinical documentation to support these images can be found on the encounter that produced images. us Provider Not In System IMG NON RAD IMAGING PROCE FRANCINE Final Result Performing Organization Address [facility] Co de Phone Number IIMS NA * Bacterial Culture, Aerobic + Susceptibility (12/02/2024 6:24 PM DRY HOUSE ATTENDANT) Only the most recent of2 resultswithin the time period is included. Bacterial Culture, Aerobic + Susc No growth after 5 days of incubation. 12/07/2024 7:41 AM DRY HOUSE ATTENDANT DTL Drainage (Hand, Right) 12/02/2024 6:24 PM DRY HOUSE ATTENDANT 12/02/2024 8:03 PM DRY HOUSE ATTENDANT Comment:Specimen Source Site : TISSUE Gisela Hanna M.D. LAB MICROBIOLOGY - GENERA L ORDERABLES Final Result Performing Organization Address [facility] Co de Phone Number [facility] [address] [place] [address], [facility] [address] [place] [address] * Gram Stain (12/02/2024 6:24 PM DRY HOUSE ATTENDANT) Only the most recent of3 resultswithin the time period is included. Gram Stain No organisms seen. 12/03/2024 1:40 AM DRY HOUSE ATTENDANT DTL Drainage (Hand, Right) 12/02/2024 6:24 PM DRY HOUSE ATTENDANT 12/02/2024 8:03 PM DRY HOUSE ATTENDANT Comment:Specimen Source Site : TISSUE Gisela Hanna M.D. LAB MICROBIOLOGY - GENERA L ORDERABLES Final Result Performing Organization Address [facility]/ZIP Co de Phone Number [facility] [address] [place] [address], [facility] [address] [place] [address] * Bacterial Culture, Anaerobic + Susceptibility (12/02/2024 6:24 PM DRY HOUSE ATTENDANT) Bacterial Culture, Anaerobic + Susc No growth after 14 days of incubation. 12/16/2024 8:29 AM DRY HOUSE ATTENDANT DTL Drainage (Hand, Right) 12/02/2024 6:24 PM DRY HOUSE ATTENDANT 12/02/2024 8:03 PM DRY HOUSE ATTENDANT Comment:Specimen Source Site : TISSUE us Gisela Hanna M.D. LAB MICROBIOLOGY - GENERA L ORDERABLES Final Result [facility] [address] [place] [address], [place] D[facility] [address] [place] [address] * CT Hand Right without and with IV Contrast (12/02/2024 12:46 PM DRY HOUSE ATTENDANT) Anatomical Region Laterality Modality Upper Extremity, Hand, Muscu loskeletal RST LOS, Musculoskeletal ARZ LOS, Muskuloskeletal FLA LOS Right Computed Tomography, Compute d Tomography Impressions 12/02/2024 3:04 PM DRY HOUSE ATTENDANT As noted on the same day ultrasound, there is extensive enhancing edema overlying the dorsal aspect of the distal right forearm, wrist and hand with multiple scattered locules of gas within the dorsal soft tissues overlying the fourth and fifth metacarpals. The soft tissue gas is worrisome for infection with a gas-producing organism but could be related to the recent IV. There are smaller irregular areas of decreased or nonenhancement centrally in the area of the gas locules and greatest edema and enhancement over the dorsal and ulnar aspect compatible with an irregularly shaped fluid collection versus numerous tiny adjacent fluid locules (For example, see series 13, images 386, 411 and 427 and series 21, image 149-153). This area measures approximately 0.7 cm AP by 1.5 cm TR by 3.3 cm SI. As seen on the ultrasound, the fluid and edema overlies the extensor tendons without definite evidence of fluid in the tendon sheaths. However, the ultrasound demonstrated marked hyperemia of the tendon sheaths which likely represents reactive tenosynovitis related to the overlying process. Findings were discussed with Lexie Eldridge CNP ([phone]) at 2:00 PM on 12/02/2024. Narrative 12/02/2024 3:04 PM DRY HOUSE ATTENDANT EXAM: CT HAND RIGHT WITHOUT AND WITH IV CONTRAST COMPARISON: Ultrasound 12/02/2024 Procedure Note Yvonne Morin M.D. - 12/02/2024 EXAM: CT HAND RIGHT WITHOUT AND WITH IV CONTRAST COMPARISON: Ultrasound 12/02/2024 IMPRESSION: As noted on the same day ultrasound, there is extensive enhancing edemaoverlying the dorsal aspect of the distal right forearm, wrist and handwith multiple scattered locules of gas within the dorsal soft tissuesoverlying the fourth and fifth metacarpals. The soft tissue gas is worrisome for infection with agas- producing organism but could be related to the recent IV. There aresmaller irregular areas of decreased or nonenhancement centrally in thearea of the gas locules and greatest edema and enhancement over the dorsal and ulnar aspect compatible with anirregularly shaped fluid collection versus numerous tiny adjacent fluidlocules (For example, see series 13, images 386, 411 and 427 and sttlez74, image 149-153). This area measures approximately 0.7 cm AP by 1.5 cm TR by 3.3 cm SI. As seen on the ultrasound, the fluid and edema overlies the extensortendons without definite evidence of fluid in the tendon sheaths. However,the ultrasound demonstrated marked hyperemia of the tendon sheaths whichlikely represents reactive tenosynovitis related to the overlying process. Findings were discussed with Lexie Eldridge CNP ([phone]) at2:00 PM on 12/02/2024. us Lexie Eldridge APRN, C.N.P. IMG CT PRO CEDURES Final Result * RAD US Musculoskeletal Hand Right (12/02/2024 8:55 AM DRY HOUSE ATTENDANT) Anatomical Region Laterality Modality Hand, Ultrasound RST LOS, Mu sculoskeletal ARZ LOS, Ultrasound ARZ LOS, Muskuloskeletal FLA LOS Right Ultrasound Impressions 12/02/2024 9:13 AM DRY HOUSE ATTENDANT 1. Cellulitis right dorsal hand, possibly by a gas-forming organism with echogenic foci present throughout the inflamed soft tissues. 2. Tenosynovitis right dorsal extensor compartment IV Results called to Lexie Eldridge APRN, NEELAM at 9:10 am on December 02, 2024 Narrative 12/02/2024 9:13 AM DRY HOUSE ATTENDANT EXAM: RAD US MUSCULOSKELETAL HAND RIGHT COMPARISON: None FINDINGS: Focused ultrasound of the dorsal hand in the area of concern. Extensive soft tissue inflammatory changes with soft tissue swelling and marked hyperemia in a pattern compatible with cellulitis. Of concern, there are punctate and larger echogenic foci present within within the inflamed tissue, concerning for gas from a gas-forming organism. Tenosynovitis of the right hand extensor compartment IV. Procedure Note Elmo Corley M.D. - 12/02/2024 EXAM: RAD US MUSCULOSKELETAL HAND RIGHT COMPARISON: None FINDINGS: Focused ultrasound of the dorsal hand in the area of concern. Extensivesoft tissue inflammatory changes with soft tissue swelling and markedhyperemia in a pattern compatible with cellulitis. Of concern, there arepunctate and larger echogenic foci present within within the inflamed tissue, concerning for gas from agas-forming organism. Tenosynovitis of the right hand extensor compartment IV. IMPRESSION: 1. Cellulitis right dorsal hand, possibly by a gas-forming organism withechogenic foci present throughout the inflamed soft tissues. 2. Tenosynovitis right dorsal extensor compartment IV Results called to Lexie Eldridge APRN, NEELAM at 9:10 am on 2024 us Mike Wilson P.A.-C. IMG US PROCEDURES Final Result * Hand-Internal Medicine Image Exam (12/02/2024 8:00 AM DRY HOUSE ATTENDANT) Only the most recent of2 resultswithin the time period is included. 12/02/2024 8:00 AM DRY HOUSE ATTENDANT Narrative IIMS - 12/02/2024 8:03 AM DRY HOUSE ATTENDANT This order has been created and auto-finalized to support the import of images acquired without order. The clinical documentation to support these images can be found on the encounter that produced images. us Provider Not In System IMG NON RAD IMAGING PROCE DURES Final Result IIMS NA * (ABNORMAL) Staph aureus / MRSA, Nasal, PCR (12/01/2024 11:58 AM DRY HOUSE ATTENDANT) Staphylococcus aureus, PCR Positive(A) Negative 12/01/2024 5:29 PM DRY HOUSE ATTENDANT DTL MRSA, PCR Negative Negative 12/01/2024 5:29 PM DRY HOUSE ATTENDANT DTL Comment: Methicillin (oxacillin)-susceptible Staphylococcus aureus complex detected. Swab (Nares) 12/01/2024 11:5 8 AM DRY HOUSE ATTENDANT 12/01/2024 12:42 PM DRY HOUSE ATTENDANT Cesar Thurman M.D. LAB MICROBIOLOGY - GEN ERAL ORDERABLES Final Result [facility] [address] [place] [address], [facility] [address] [place] [address] * Bacteria / Marilyn Culture, Blood #2 (12/01/2024 11:06 AM DRY HOUSE ATTENDANT) Only the most recent of2 resultswithin the time period is included. Pathologist [facility] Bacteria/Jennifer da Culture, Blood No growth after 5 days of incubation. 12/06/2024 12:02 PM DRY HOUSE ATTENDANT DTL Blood (Blood, Peripheral Draw) 12/01/2024 11:06 AM DRY HOUSE ATTENDANT 12/01/2024 11:35 AM DRY HOUSE ATTENDANT Comment:Specimen Source Site : Blood Mike Wilson P.A.-C. LAB MICROBIOLOGY - GENE RAL ORDERABLES Final Result [facility] [address] [place] [address], [facility] [address] [place] [address] * MR Brain without and with IV Contrast (12/01/2024 8:49 AM DRY HOUSE ATTENDANT) Anatomical Region Laterality Modality Head, Brain, Neuroradiology RST LOS, Neuroradiology ARZ LOS, Neuroradiology FLA LOS N/A Magnetic Resonance Impressions 12/01/2024 9:27 AM DRY HOUSE ATTENDANT 1. No acute intracranial findings. Specifically, no evidence of recent infarct. 2. 8 x 6 mm presumed meningioma along the posterior falx, as described. Additional 5 mm presumed calcified meningioma along the inferior left frontal lobe. Narrative 12/01/2024 9:27 AM DRY HOUSE ATTENDANT EXAM: MR BRAIN WITHOUT AND WITH IV CONTRAST COMPARISON: Head CT 11/30/2024 FINDINGS: No abnormal restricted diffusion to suggest recent infract. 8 x 6 mm dural-based enhancing mass with enhancing dural tails along the rightward aspect of the posterior falx that minimally abuts the superior sagittal sinus luminal (800/127; 8/162). No associated narrowing of the superior sagittal sinus nor appreciable extension into the sinus. No mass effect on the underlying right occipital lobe and no associated parenchymal edema. 5 mm dural-based enhancing calcified mass along the inferior left frontal lobe (800/118) without mass effect on the underlying cerebrum or associated edema. Small left cerebellar hemisphere developmental venous anomaly. Incidental 2.0 x 2.0 x 3.4 cm arachnoid cyst overlying the parasagittal left frontal lobe with mild mass effect on the underlying left superior frontal gyrus. A few foci of punctate microhemorrhage throughout the cerebellar hemispheres. Scattered nonspecific periventricular and subcortical white matter hyperintensities, commonly reflective of mild chronic small vessel ischemic change. Mild generalized cerebral and cerebellar parenchymal volume loss with commensurate ex vacuo prominence of ventricular system. Major intracranial flow voids are preserved. Mastoid air cells and paranasal sinuses are clear. Intraocular lens implants. Procedure Note Nazario Keyes M.D. - 12/01/2024 EXAM: MR BRAIN WITHOUT AND WITH IV CONTRAST COMPARISON: Head CT 11/30/2024 FINDINGS: No abnormal restricted diffusion to suggest recent infract. 8 x 6 mm dural-based enhancing mass with enhancing dural tails along therightward aspect of the posterior falx that minimally abuts the superiorsagittal sinus luminal (800/127; 8/162). No associated narrowing of thesuperior sagittal sinus nor appreciable extension into the sinus. No mass effect on the underlyingright occipital lobe and no associated parenchymal edema. 5 mm dural-based enhancing calcified mass along the inferior left frontallobe (800/118) without mass effect on the underlying cerebrum orassociated edema. Small left cerebellar hemisphere developmental venous anomaly. Incidental2.0 x 2.0 x 3.4 cm arachnoid cyst overlying the parasagittal left frontallobe with mild mass effect on the underlying left superior frontal gyrus.A few foci of punctate microhemorrhage throughout the cerebellar hemispheres. Scattered nonspecific periventricular and subcortical white matterhyperintensities, commonly reflective of mild chronic small vesselischemic change. Mild generalized cerebral and cerebellar parenchymalvolume loss with commensurate ex vacuo prominence of ventricular system. Major intracranial flow voids are preserved. Mastoid air cells and paranasal sinuses are clear. Intraocular lensimplants. IMPRESSION: 1. No acute intracranial findings. Specifically, no evidence of recentinfarct. 2. 8 x 6 mm presumed meningioma along the posterior falx, as described.Additional 5 mm presumed calcified meningioma along the inferior leftfrontal lobe. us Mike Wilson P.A.-C. IMG MRI PROCEDURES Brii l Result * CT Head without IV Contrast (11/30/2024 4:20 PM DRY HOUSE ATTENDANT) Anatomical Region Laterality Modality Head, Neuroradiology RST [facility] , Neuroradiology ARZ [facility], Neuroradiology FLA [facility] N/A Computed Tomography, Compute d Tomography 11/30/2024 3:46 PM DRY HOUSE ATTENDANT Impressions 11/30/2024 4:48 PM DRY HOUSE ATTENDANT 1. No currently evident acute infarct or acute intracranial hemorrhage. 2. No high-grade arterial stenosis is demonstrated. Narrative 11/30/2024 4:48 PM DRY HOUSE ATTENDANT EXAM: CT HEAD WITHOUT IV CONTRAST, CT HEAD NECK ANGIOGRAM WITH IV CONTRAST Including 3D image post-processing with or without AI assistance. COMPARISON: None FINDINGS: CT HEAD: No edematous territorial infarct or acute loss of carpio-white matter differentiation. No intracranial hemorrhage, extra-axial collection, or mass effect. Incidentally noted mineralization of the left basal ganglia. There is proportional prominence of ventricles and sulcal spaces with mild parenchymal volume loss. Possible tiny 0.6 cm meningioma along the right parasagittal falx (series 7 image 170). Paranasal sinuses and mastoid air cells are well aerated. CTA HEAD: Diminutive right P1 segment with prominent right posterior communicating artery. The more distal P2 branches opacify normally. Trace atherosclerotic calcification of the cavernous internal carotid arteries. No proximal large vessel occlusion. The ophthalmic arteries are patent. No aneurysm. CTA NECK: Three-vessel left-sided aortic arch. No significant stenosis of the great vessel origins. Calcified plaque at the origin of the right subclavian artery results in minimal narrowing. There is trace calcified plaque of the carotid bifurcations. The common carotid arteries and extracranial internal carotid arteries are otherwise unremarkable. The left vertebral artery is mildly dominant. The bilateral vertebral artery ostia are widely patent. Normal cervical course and caliber of the vertebral arteries without evidence of dissection. Biapical parenchymal scarring and mild dependent atelectasis. 9 mm enhancing left thyroid nodule (se 6/im 104). Procedure Note Beni Abad M.D. - 11/30/2024 EXAM: CT HEAD WITHOUT IV CONTRAST, CT HEAD NECK ANGIOGRAM WITH IVCONTRAST Including 3D image post-processing with or without AI assistance. COMPARISON: None FINDINGS: CT HEAD: No edematous territorial infarct or acute loss of carpio-whitematter differentiation. No intracranial hemorrhage, extra-axialcollection, or mass effect. Incidentally noted mineralization of the leftbasal ganglia. There is proportional prominence of ventricles and sulcal spaces with mild parenchymal volumeloss. Possible tiny 0.6 cm meningioma along the right parasagittal falx (series7 image 170). Paranasal sinuses and mastoid air cells are well aerated. CTA HEAD: Diminutive right P1 segment with prominent right posteriorcommunicating artery. The more distal P2 branches opacify normally. Traceatherosclerotic calcification of the cavernous internal carotid arteries.No proximal large vessel occlusion. The ophthalmic arteries are patent. No aneurysm. CTA NECK: Three-vessel left-sided aortic arch. No significant stenosis ofthe great vessel origins. Calcified plaque at the origin of the rightsubclavian artery results in minimal narrowing. There is trace calcifiedplaque of the carotid bifurcations. The common carotid arteries and extracranial internal carotid arteries areotherwise unremarkable. The left vertebral artery is mildly dominant. The bilateral vertebralartery ostia are widely patent. Normal cervical course and caliber of thevertebral arteries without evidence of dissection. Biapical parenchymal scarring and mild dependent atelectasis. 9 mmenhancing left thyroid nodule (se 6/im 104). IMPRESSION: 1. No currently evident acute infarct or acute intracranial hemorrhage. 2. No high-grade arterial stenosis is demonstrated. us Mike Wilson P.A.-C. [facility] [place]ED[place] Final Result * CT Head Neck Angiogram with IV Contrast (11/30/2024 4:20 PM DRY HOUSE ATTENDANT) Anatomical Region Laterality Modality Head and Neck, Neuroradiolog y RST LOS, Neuroradiology ARZ LOS, Neuroradiology FLA LOS N/A Computed Tomography, Compute d Tomography 11/30/2024 3:46 PM DRY HOUSE ATTENDANT Impressions 11/30/2024 4:48 PM DRY HOUSE ATTENDANT 1. No currently evident acute infarct or acute intracranial hemorrhage. 2. No high-grade arterial stenosis is demonstrated. Narrative 11/30/2024 4:48 PM DRY HOUSE ATTENDANT EXAM: CT HEAD WITHOUT IV CONTRAST, CT HEAD NECK ANGIOGRAM WITH IV CONTRAST Including 3D image post-processing with or without AI assistance. COMPARISON: None FINDINGS: CT HEAD: No edematous territorial infarct or acute loss of carpio-white matter differentiation. No intracranial hemorrhage, extra-axial collection, or mass effect. Incidentally noted mineralization of the left basal ganglia. There is proportional prominence of ventricles and sulcal spaces with mild parenchymal volume loss. Possible tiny 0.6 cm meningioma along the right parasagittal falx (series 7 image 170). Paranasal sinuses and mastoid air cells are well aerated. CTA HEAD: Diminutive right P1 segment with prominent right posterior communicating artery. The more distal P2 branches opacify normally. Trace atherosclerotic calcification of the cavernous internal carotid arteries. No proximal large vessel occlusion. The ophthalmic arteries are patent. No aneurysm. CTA NECK: Three-vessel left-sided aortic arch. No significant stenosis of the great vessel origins. Calcified plaque at the origin of the right subclavian artery results in minimal narrowing. There is trace calcified plaque of the carotid bifurcations. The common carotid arteries and extracranial internal carotid arteries are otherwise unremarkable. The left vertebral artery is mildly dominant. The bilateral vertebral artery ostia are widely patent. Normal cervical course and caliber of the vertebral arteries without evidence of dissection. Biapical parenchymal scarring and mild dependent atelectasis. 9 mm enhancing left thyroid nodule (se 6/im 104). Procedure Note Delone, Beni R, M.D. - 11/30/2024 EXAM: CT HEAD WITHOUT IV CONTRAST, CT HEAD NECK ANGIOGRAM WITH IVCONTRAST Including 3D image post-processing with or without AI assistance. COMPARISON: None FINDINGS: CT HEAD: No edematous territorial infarct or acute loss of carpio-whitematter differentiation. No intracranial hemorrhage, extra-axialcollection, or mass effect. Incidentally noted mineralization of the leftbasal ganglia. There is proportional prominence of ventricles and sulcal spaces with mild parenchymal volumeloss. Possible tiny 0.6 cm meningioma along the right parasagittal falx (series7 image 170). Paranasal sinuses and mastoid air cells are well aerated. CTA HEAD: Diminutive right P1 segment with prominent right posteriorcommunicating artery. The more distal P2 branches opacify normally. Traceatherosclerotic calcification of the cavernous internal carotid arteries.No proximal large vessel occlusion. The ophthalmic arteries are patent. No aneurysm. CTA NECK: Three-vessel left-sided aortic arch. No significant stenosis ofthe great vessel origins. Calcified plaque at the origin of the rightsubclavian artery results in minimal narrowing. There is trace calcifiedplaque of the carotid bifurcations. The common carotid arteries and extracranial internal carotid arteries areotherwise unremarkable. The left vertebral artery is mildly dominant. The bilateral vertebralartery ostia are widely patent. Normal cervical course and caliber of thevertebral arteries without evidence of dissection. Biapical parenchymal scarring and mild dependent atelectasis. 9 mmenhancing left thyroid nodule (se 6/im 104). IMPRESSION: 1. No currently evident acute infarct or acute intracranial hemorrhage. 2. No high-grade arterial stenosis is demonstrated. Mike Wilson P.A.-C. [facility] [place]EDURES Final Result * US Upper Extremity Arteries Left (11/29/2024 4:34 PM DRY HOUSE ATTENDANT) Anatomical Region Laterality Modality Upper Extremity, Ultrasound RST LOS, Ultrasound ARZ LOS, Ultrasound FLA LOS, Procedural, Vascular Interventional NWWI LOS Left Ultrasound Impressions 11/29/2024 5:05 PM DRY HOUSE ATTENDANT 1. Patent arterial vessels. 2. Heterogenous collection in the soft tissues of the left forearm most consistent with a hematoma. No appreciable internal vascularity or connection to the adjacent ulnar or radial arteries to suggest a pseudoaneurysm. Narrative 11/29/2024 5:05 PM DRY HOUSE ATTENDANT EXAM: US UPPER EXTREMITY ARTERIES LEFT Exam performed with color and spectral Doppler analysis. COMPARISON: No prior upper extremity arterial Doppler available FINDINGS: LEFT Subclavian: No significant stenosis. Axillary: No significant stenosis. Brachial: No significant stenosis. Radial: No significant stenosis. Ulnar: No significant stenosis. Large heterogenously echogenic collection in the soft tissues of the mid to distal forearm with overlying mild soft tissue edema. This measures at least 1.9 x 3.8 x 3.8 cm (noting the longitudinal length is underestimated). There are patent vessel branches extending along the periphery of the collection but no internal vascularity or connection to the major vessel branches was detected. Procedure Note Karolina Monae M.D. - 11/29/2024 EXAM: US UPPER EXTREMITY ARTERIES LEFT Exam performed with color and spectral Doppler analysis. COMPARISON: No prior upper extremity arterial Doppler available FINDINGS: LEFT Subclavian: No significant stenosis. Axillary: No significant stenosis. Brachial: No significant stenosis. Radial: No significant stenosis. Ulnar: No significant stenosis. Large heterogenously echogenic collection in the soft tissues of the midto distal forearm with overlying mild soft tissue edema. This measures atleast 1.9 x 3.8 x 3.8 cm (noting the longitudinal length isunderestimated). There are patent vessel branches extending along the periphery of the collection but no internalvascularity or connection to the major vessel branches was detected. IMPRESSION: 1. Patent arterial vessels. 2. Heterogenous collection in the soft tissues of the left forearm mostconsistent with a hematoma. No appreciable internal vascularity orconnection to the adjacent ulnar or radial arteries to suggest apseudoaneurysm. us Wilfred Courtney P.A.-C. IMG US PROCEDURES Brii l Result * PULSED FIELD ABLATION, ABLATION PVI, CARTO, ABLATION - ATRIAL FLUTTER - RIGHT, ABLATION - CS (11/29/2024 12:44 PM DRY HOUSE ATTENDANT) Anatomical Region Laterality Modality X-Ray Angiograph y 11/29/2024 9:03 AM DRY HOUSE ATTENDANT Narrative 11/29/2024 4:01 PM DRY HOUSE ATTENDANT For the complete report, see the Order-Level Documents. PROCEDURE TYPES 1. PULSED FIELD ABLATION 2. ABLATION - PVI 3. 3D MAPPING - CARTO 4. ABLATION - ATRIAL FLUTTER - RIGHT 5. EP RFABLATION 6. ABLATION - CS PRE-PROCEDURE DIAGNOSIS 1. Atrial Fibrillation Longstanding Persistent (HCC) FINAL IMPRESSIONS 1. Pulmonary vein ablation for atrial fibrillation was successful in all veins. 2. Typical counterclockwise isthmus dependent atrial flutter was ablated successfully with bi-directional block. 3. Left atrial hemodynamics were normal. 4. Gigantic left atrial enlargement present by CARTO. 5. Abnormal Sinus Node Function. HRS NOTE BRIEF PATIENT HISTORY Mr. Carlisle is a 79-year-old woman with symptomatic persistent atrial fibrillation. Due to desire to avoid antiarrhythmic drugs, she opted to proceed with catheter ablation. Preprocedural CT scan demonstrated no intracardiac thrombus. BRIEF PROCEDURAL DETAILS A. EP study/ Mapping: The patient was brought to the EP lab in the fasting, postabsorptive state. Following a procedural pause, general anesthesia was administered. Following administration of local anesthetic, two 8 Central [place] sheaths were inserted in the left femoral vein and a 8 Central African and 8 Central African sheath was inserted in the right femoral vein. One of the 8 Central African venous entry sites was pre closed. A 4 Fr femoral arterial blood pressure monitoring line was placed. Following vascular access, intravenous heparin bolus and infusion were administered aiming for an ACT of 350-400 sec. An ICE catheter was inserted into the right atrium. This demonstrated no pericardial effusion. The pulmonary veins were patent. Next, an Decanav CS catheter was placed into the coronary sinus. The right 8 Central African sheaths was exchanged for a Faradrive sheath after dilatation of the venous entry site. Transseptal puncture was performed using ICE and fluoroscopic guidance with the aid hemodynamic measurement using the [employer] system. We then were able to advance the ICE catheter using the same transseptal puncture site. A 31mm Farapulse catheter was prepared and advanced into the left atrium. Please see details below for the PFA pulmonary isolation procedure. After the PFA application in the pulmonary veins the catheter was exchanged for a Octoray catheter. There was variable cycle length noted in the see us around 270- 250 milliseconds. We then performed an activation map of the left atrium. There were small islands of tissue with the activation mainly anterior to the right superior pulmonary vein and around the inferior mitral annular. We then pulled back the sheath and the PentaRay catheter into the right atrium. An activation map was performed. Appropriate signals were noted in the CTI and lateral right atrium. B. Ablation: There were minimal signals in near the PVs. We started with the LSPV. 2 PFA lesions each were delivered in basket, flower and olive configuration. The catheter was turned by 1/8 turn and addition 2 lesions were delivered each in basket and flower configuration. Each vein had a total of 10 lesions. Farapulse catheter was positioned over the guidewire in the right inferior pulmonary vein and subsequently into the left-sided veins. Contact was excellent based on left-sided intracardiac ultrasound guidance. Following PFA delivery there were no venous potentials in all 4 pulmonary veins. The Farapulse catheter was then exchanged to a 10 mm Lasso catheter and the pulmonary vein isolation was confirmed. We then pre- treated the patient with the 2 mg of nitroglycerin and then applied 6 lesions in Flower configuration in the region of the CTI. Similarly 4 lesions were delivered in the lateral right atrium where we saw fractionated signals. We then went back to the left atrium and delivered 2 additional lesions in Flower configuration in the region of fractionated signal. At this point the cycle length of the tachycardia changed to to 270 millisecond. We went back with the RF ablation catheter and noted that there were no signals in the region of the CTI. We performed entrainment mapping resulted in induction of atrial fibrillation. The patient was cardioverted to sinus rhythm using a 200 joule shock. She remained in sinus bradycardia at a rate of 45 beats per minute. We noted that there were signals below the SVC and the septal aspect in sinus rhythm. C. Post-ablation testing: At the end of the procedure, Mrs. Carlisle was in sinus rhythm in the 40s, which improved with weaning of anesthesia. Final ICE evaluation demonstrated no change from baseline. At conclusion of case: All catheters removed. Protamine given. Sheaths removed. The Perclose suture was tightened. The [id number] suture tie was created around the Faradrive sheath entry site. Manual pressure held. No acute complications noted. RECOMMENDATIONS: 1. 2 hours bedrest. 2. Resume Anticoagulation as per usual schedule. 3. Admit to hospital service for consideration of pacemaker and initiation of antiarrhythmic drug therapy. FINAL DIAGNOSES Persistent atrial fibrillation status post bilateral pulmonary vein isolation, CTI and lateral RA ablation. She has significant scar burden in both the atrium DIAGNOSTIC/ABLATION INTRA-PROCEDURE - General anesthesia - Central access completed - Patient heparinization - Catheter placement - Basic interval determination - Intracardiac ultrasound examination of the heart and pericardial space - Intracardiac ultrasound examination of the pulmonary veins - Intracardiac ultrasound guided transseptal access - Transseptal sheath placement - Patient heparinization (ACT) 228. Additional heparin given - Ablation of the Pulmonary Veins for AFib - 3D mapping performed: Activation - Mapping of the Left Atrium during Arrhythmia - Mapping of the Right Atrium during Arrhythmia - Ablation of the CTI for AFlutter typical - Ablation of the SVC for AFib - Repeat testing following ablation - Intracardiac ultrasound examination of the heart and pericardial space - DC cardioversion/defibrillation was required 1 times For the complete report, see the Order-Level Documents. us Perry Lozano M.D., M.P.H. CV ELECTROPHYSIOLOGY PROCS Edited Result - Final * ACT (Activated Clotting Time), POCT (11/29/2024 12:25 PM DRY HOUSE ATTENDANT) Only the most recent of16 resultswithin the time period is included. Activated Clotting Time, POCT 129 84 - 139 sec 11/29/2024 12:31 PM DRY HOUSE ATTENDANT PCSM Blood 11/29/2024 12:2 5 PM DRY HOUSE ATTENDANT 11/29/2024 12:31 PM DRY HOUSE ATTENDANT us Unknown Provider LAB POCT ORDERABLES - DEVICE Fi nal Result POC RST [facility] [address] [place] [address], [place] PCSM [facility] POC [address] [place] [address] * LDA ANE ENDOTRACHEAL AIRWAY (11/29/2024 8:42 AM DRY HOUSE ATTENDANT) Narrative Robbie Miramontes, WAX CUTTER, LOCKSTITCH BINDER, DNAP - 11/29/2024 8:42 AM DRY HOUSE ATTENDANT Robbie Miramontes APRN, LOCKSTITCH BINDER, DNAP 11/29/2024 9:05 AM Airway Date/Time: 11/29/2024 8:42 AM Performed by: Robbie Miramontes APRN, CRNA, DNAP Authorized by: Robbie Miramontes APRN, CRNA, DNAP Patient location during procedure: OR / Procedure Area PROCEDURE DETAILS: Mask difficulty assessment: easy mask Final airway type: direct laryngoscopy, intubation Laryngeal Manipulation: no Final airway difficulty of direct laryngoscopy (DL): 0-easy Final best view of glottic structures - Cormack/Lehane Score: grade 2A ETT location: oral Blade type: Ramirez 2 Tube size: 7 ETT distance at teeth/gum: 24 Oral tube type: standard ETT Cuffed: yes Number of attempt to successful placement: 1 Airway confirmation: bilateral breath sounds, positive ETCO2 and bilateral chest rise Other previous techniques attempted: none PRE PROCEDURE DETAILS: Pre evaluation for airway management: procedure Urgency: elective Preop assessment of probable difficulty: no difficulty anticipated Preoxygenation: bag valve mask SEDATION / ANESTHESIA Anesthesia method: anesthesia POST PROCEDURE DETAILS: Procedure outcome: successful Notable Events: no complications Robbie Miramontes APRN, CRNA, DNAP ANESTHESIA ORDER BOO Final Result * Type and Screen (with Reflex Antibody ID) (11/28/2024 1:17 PM DRY HOUSE ATTENDANT) Pathologist [facility] ABORh A Neg Not applicable 11/28/2024 5:25 PM DRY HOUSE ATTENDANT ETRM Antibody Screen Negative Negative 11/28/2024 5:36 PM DRY HOUSE ATTENDANT ETRM Type & Screen Expiration 01/26/2025 23:59 11/28/2024 5:25 PM DRY HOUSE ATTENDANT ETRM Testing Location [place] DEFAULT 11/28/2024 1:58 PM DRY HOUSE ATTENDANT ETRM Blood (Blood, Venous) 11/28/2024 1:17 PM DRY HOUSE ATTENDANT 11/28/2024 1:58 PM DRY HOUSE ATTENDANT Perry Lozano M.D., M.P.H. LAB BLOOD BANK TEST ORDERABLES Final Result [facility] [address] [place] [address], [place] ETRM [facility] [address] * (ABNORMAL) Comprehensive Metabolic Panel (11/28/2024 1:17 PM DRY HOUSE ATTENDANT) Only the most recent of2 resultswithin the time period is included. Pathologist [facility] Potassium, S 3.9 3.6 - 5.2 mmol/L 11/28/2024 2:10 PM DRY HOUSE ATTENDANT DTL Sodium, S 139 135 - 145 mmol/L 11/28/2024 2:10 PM DRY HOUSE ATTENDANT DTL Chloride, S 101 98 - 107 mmol/L 11/28/2024 2:10 PM DRY HOUSE ATTENDANT DTL Bicarbonate, S 28 22 - 29 mmol/L 11/28/2024 2:10 PM DRY HOUSE ATTENDANT DTL Anion Gap 10 7 - 15 11/28/2024 2:10 PM DRY HOUSE ATTENDANT DTL BUN (Blood Urea Nitrogen), S 19 6 - 21 mg/dL 11/28/2024 2:10 PM DRY HOUSE ATTENDANT DTL Creatinine 0.86 0.59 - 1.04 mg/dL 11/28/2024 2:10 PM DRY HOUSE ATTENDANT DTL Estimated GFR (eGFR) 70 >=60 mL/min/BS A 11/28/2024 2:10 PM DRY HOUSE ATTENDANT DTL Comment: Estimated GFR calculated using the 2020 CKD_EPI creatinine equation. Calcium, Total, S 8.9 8.8 - 10.2 mg/dL 11/28/2024 2:10 PM DRY HOUSE ATTENDANT DTL Glucose, S 142(H) 70 - 140 mg/dL 11/28/2024 2:10 PM DRY HOUSE ATTENDANT DTL Protein, Total, S 7.0 6.3 - 7.9 g/dL 11/28/2024 2:10 PM DRY HOUSE ATTENDANT DTL Albumin, S 4.1 3.5 - 5.0 g/dL 11/28/2024 2:10 PM DRY HOUSE ATTENDANT DTL Aspartate Aminotransferase (AST), S 23 8 - 43 U/L 11/28/2024 2:10 PM DRY HOUSE ATTENDANT DTL Alkaline Phosphatase, S 61 35 - 104 U/L 11/28/2024 2:10 PM DRY HOUSE ATTENDANT DTL Alanine Aminotransferase (ALT), S 29 7 - 45 U/L 11/28/2024 2:10 PM DRY HOUSE ATTENDANT DTL Bilirubin, Total, S 0.4 0.0 - 1.2 mg/dL 11/28/2024 2:10 PM DRY HOUSE ATTENDANT DTL Blood (Blood, Venous) 11/28/2024 1:17 PM DRY HOUSE ATTENDANT 11/28/2024 1:54 PM DRY HOUSE ATTENDANT Perry Lozano M.D., M.P.H. LAB BLOOD ADD-ON Fin al Result [facility] [address] [place] [address], [place] DTL [facility] [address] [place] [address] * CT Cardiac Pulmonary Veins with IV (11/28/2024 10:09 AM DRY HOUSE ATTENDANT) Anatomical Region Laterality Modality Cardiac, Cardiovascular RST LOS, Thoracic ARZ LOS, Cardiovascular FLA LOS N/A Computed Tomography, Compute d Tomography 11/28/2024 10:0 6 AM DRY HOUSE ATTENDANT Impressions 11/28/2024 12:48 PM DRY HOUSE ATTENDANT Typical pulmonary venous return to the left atrium with 2 right and 2 left pulmonary veins. There is no pulmonary vein stenosis. Postoperative changes left atrial appendage amputation. Narrative 11/28/2024 12:48 PM DRY HOUSE ATTENDANT EXAM: CT CARDIAC PULMONARY VEINS WITH IV CONTRAST Including 3D image post-processing with or without AI assistance. COMPARISON: None FINDINGS: PULMONARY VEINS/LEFT ATRIUM: Typical pulmonary venous return to the left atrium with 2 right and 2 left pulmonary veins. There is no pulmonary vein stenosis. Postoperative changes left atrial appendage amputation. OTHER CARDIAC FINDINGS: Severe left atrial enlargement. Severe right atrial enlargement. Postoperative changes tricuspid valve repair and mitral valve repair. ADDITIONAL FINDINGS: Images of the abdomen show liver cysts. Procedure Note Franky Bowen M.D. - 11/28/2024 EXAM: CT CARDIAC PULMONARY VEINS WITH IV CONTRAST Including 3D image post-processing with or without AI assistance. COMPARISON: None FINDINGS: PULMONARY VEINS/LEFT ATRIUM: Typical pulmonary venous return to the leftatrium with 2 right and 2 left pulmonary veins. There is no pulmonary veinstenosis. Postoperative changes left atrial appendage amputation. OTHER CARDIAC FINDINGS: Severe left atrial enlargement. Severe right atrial enlargement.Postoperative changes tricuspid valve repair and mitral valve repair. ADDITIONAL FINDINGS: Images of the abdomen show liver cysts. IMPRESSION: Typical pulmonary venous return to the left atrium with 2 right and 2 leftpulmonary veins. There is no pulmonary vein stenosis. Postoperativechanges left atrial appendage amputation. Perry Lozano M.D., M.P.H. IMG CT PROCEDURES Fi nal Result * (TTE) 2D ECHO DOPPLER COLOR (08/17/2024 10:48 AM CDT) Ejection Fraction 57 MC CV EIMS Sinus of Valsalva 38 MC CV EIMS Mid-Ascending Aorta 40 MC CV EIMS LV Mass Index 127 MC CV EIMS LV End-Diastolic Diameter 52 MC CV EIMS LV End-Systolic Diameter 34 MC CV EIMS MV e' Velocity Medial 0.07 MC CV EIMS MV e' Velocity Lateral 0.09 MC CV EIMS Left ventricular stroke volume index 51 MC CV EIMS Cardiac Output 5.31 MC CV EIMS Cardiac Index 2.89 MC CV EIMS LV Interventricular Septal Wall Thickness 11 MC CV EIMS LV Posterior Wall Thickness 12 MC CV EIMS LV Relative Wall Thickness 46 MC CV EIMS RV 4-Chamber Basal Diameter 51 MC CV EIMS RV 4-Chamber Mid Diameter 43 MC CV EIMS RV 4-Chamber Length 82 MC CV EIMS Tricuspid Annular S 0.12 MC CV EIMS TR Vmax 2.8 MC CV EIMS Estimated RA Pressure (Echo RAP) 15 MC CV EIMS RV Systolic Pressure (with Echo RAP) 46 MC CV EIMS AV mean gradient 3 MC CV EIMS Aortic valve area 3.19 MC CV EIMS Aortic Valve Dimensionless Index 0.92 MC CV EIMS MV mean gradient 3 MC CV EIMS Aortic Valve Systolic Peak Velocity 1.2 MC CV EIMS Anatomical Region Laterality Modality Echocardiography 08/17/2024 9:49 AM CDT Impressions 08/17/2024 3:41 PM CDT Transthoracic outreach echo interpretation. Echocardiogram performed per [...] complete report, see the Order-Level Documents. Narrative 08/17/2024 3:41 PM CDT For the complete report, see the Order-Level Documents. Hemodynamics Heart Rate: 62 BPM Blood Pressure: 156 / 78 mmHg ECG: Sinus rhythm with ectopics Measurement Comments: [Rhythm] difficult to ascertain; junctional versus a more regular atrial fibrillation are included in the differential diagnosis. Final Impressions 1. Transthoracic outreach echo interpretation. 2. Status post [employer] mitral valve annuloplasty (15-OCT-2015), diastolic mean Doppler gradient 3 mmHg . Mild mitral regurgitation. 3. Status post [employer] tricuspid valve annuloplasty (15-OCT-2015), diastolic mean Doppler gradient 2 mmHg Mild (possibly [id number]) regurgitation. 4. Mild-moderately enlarged right ventricular chamber [...] improved from ANISH 04/2024); increase estimated right ventricle systolic pressure and right atrial pressure. Side by side comparison of images performed. Procedure Note Jorge Ordaz M.D. - 08/17/2024 For the complete report, see the Order-Level Documents. Hemodynamics Heart Rate: 62 BPM Blood Pressure: 156 / 78 mmHg ECG: Sinus rhythm with ectopics Measurement Comments: [Rhythm] difficult to ascertain; junctional versus frida regular atrial fibrillation are included in the differentialdiagnosis. Final Impressions 1. Transthoracic outreach echo interpretation. 2. Status post [employer] mitral valve annuloplasty (15-OCT-2015),diastolic mean Doppler gradient 3 mmHg . Mild mitral regurgitation. 3. Status post [employer] tricuspid valve annuloplasty (15-OCT-2015),diastolic mean Doppler gradient 2 mmHg Mild (possibly [id number])regurgitation. 4. Mild-moderately enlarged right ventricular chamber size, mildly reducedsystolic function, estimated right ventricular systolic pressure 46 mmHg(right atrial pressure of 15 mmHg). 5. Normal inferior vena cava size with reduced inspiratory collapse (<50%), suggesting increased right atrial pressure. 6. Borderline enlarged left ventricular chamber size, calculated 2-Dlinear ejection fraction 57%. 7. Abnormal ventricular septal motion - post-operative without otherregional wall motion abnormalities. 8. Indeterminate left ventricular filling pressure. 9. Severely enlarged left atrial size. 10. Borderline enlarged mid ascending aorta diameter of 40 mm , upperlimit of normal for age, sex and BSA is 39 mm. Trileaflet aortic valvewith no functional abnormalities. 11. No pericardial effusion. 12. Compared to the report of 04/13/2024 the following changes haveoccurred: slightly improved left ventricular contractility (markedlyimproved from ANISH 04/2024); increase estimated right ventricle systolicpressure and right atrial pressure. Side by side comparison of imagesperformed. Findings Transthoracic outreach echo interpretation. Echocardiogram performed perlt ventricular function protocol. Last full echocardiogram ecflhyzag79/12/2023. LEFT VENTRICLE:Borderline enlarged left ventricular chamber size.Calculated 2-D linear left ventricular ejection fraction 57%. Abnormalventricular septal motion - post-operative without other regional wallmotion abnormalities. Indeterminate left ventricular filling pressure. RIGHT VENTRICLE:Mild-moderately enlarged right ventricular chamber size.Mildly reduced right ventricular systolic function. Estimated rightventricular systolic pressure 46 mmHg (right atrial pressure of 15mmHg). ATRIA:Severely enlarged left atrial size. Severely enlarged right atrialsize by visual estimate. CARDIAC VALVES:Mildly thickened aortic valve. Trivial aortic valveregurgitation. Status post Carbomedics mitral valve annuloplasty(15-OCT-2015). Mitral valve diastolic mean Doppler gradient 3 mmHg (heartrate 53 BPM). Mild mitral valve regurgitation. Status post Carbomedicstricuspid valve annuloplasty (15-OCT-2015). Tricuspid valve diastolic meanDoppler gradient 2 mmHg (heart rate 54 BPM). Mild tricuspid valveregurgitation. OTHER ECHO FINDINGS:Normal inferior vena cava size with reducedinspiratory collapse (<50%). Normal sinus of Valsalva diameter of 38 mm.Borderline enlarged mid ascending aorta diameter of 40 mm. No intracardiacmass or thrombus, but the left atrial appendage cannot be visualizedadequately with transthoracic echo to exclude thrombus in this location.No pericardial effusion. For the complete report, see the Order-Level Documents. us Jorge Ordaz M.D. CV ECHO PROCEDURES Edited Result - Final * Home sleep apnea test (HSAT) (06/22/2024 9:26 AM CDT) Narrative ONBASE - 06/23/2024 2:26 PM CDT SUMMARY Home sleep apnea testing (WatchPAT) performed 06/21/2024 demonstrated a probable apnea hypopnea index (pAHI) of 8.2 per hour, with probable respiratory disturbance index (pRDI) of 18.9 per hour, mostly driven by obstructive sleep disordered breathing events in the supine sleep position. Oxyhemoglobin saturation valentin was 86%, mean was 92%, and T88 (recording time percentage below ideal) was 1.7 minutes. Total recording time was 8 hours, 6 minutes, with estimated total sleep time of 7 hours, 15 minutes. CLINICAL INTERPRETATION Mild to moderate, supine predominant obstructive sleep apnea. RECOMMENDATION: Would recommend auto CPAP 5 to 15 cmH2O versus a mandibular advancement device or positional therapy. Clinical correlation recommended. Abhinav Todd M.D. SLEEP CENTER ORDERABLES Final Result Performing Organization Address City/[facility] Co de Phone Number ONBASE NA * PUL Home Overnight Oximetry (04/26/2024 6:45 AM CDT) 04/26/2024 Impressions HACKSNECK KEDAR EAP - 04/26/2024 2:28 PM CDT The study was performed at an outside [facility] and interpreted at [facility]. Overnight oximetry was performed with the patient utilizing no supplemental oxygen or assisted breathing device. Sleep was reported to be the same as usual with no sedative medication taken. Mean saturation was near 93% with the overall profile maintained near or above 90%. Clinical interpretation: Within normal limits. Note prolonged disconnect artifact. Physician: Alo Hood M.D. [id number] Narrative Procedure Note Alo Hood M.D. - 04/26/2024 IMPRESSION: The study was performed at an outside [facility] andinterpreted at [facility]. Overnight oximetry was performedwith the patient utilizing no supplemental oxygen or assisted breathingdevice. Sleep was reported to be the same as usual with no sedative medication taken. Mean saturation wasnear 93% with the overall profile maintained near or above 90%. Clinical interpretation: Within normal limits. Note prolonged disconnectartifact. Physician: Alo Hood M.D. [id number] Jay Neves M.D. PFT ORDERABLES Final Result Performing Organization Address City/[facility]/ZIP Co de Phone Number [facility] * CARDIOVERSION EXTERNAL (04/22/2024 3:03 PM CDT) 04/22/2024 1:10 PM CDT Narrative CV IVIEW - 04/22/2024 4:23 PM CDT For the complete report, see the Order-Level Documents. PROCEDURE TYPES 1. CARDIOVERSION EXTERNAL CARDIOVERSION FINAL IMPRESSIONS Successful cardioversion. some pac's noted CARDIOVERSION COMPLICATIONS Complication(s): No Complications CARDIOVERSION PRE-PROCEDURE - Anticoagulation status verified. - ANISH was completed. - Pre-procedure EGC Rhythm(s): Atrial flutter - Pre-existing intravenous catheter. - NPO status verified: >6 hrs Hours - Patient informed consent documented (Benefits, Risks/Complications and Alternative of procedure). - Discharge criteria reviewed. - Responsible adult along. - Client Relations Specialist verification completed. CARDIOVERSION INTRA-PROCEDURE - LOCKSTITCH BINDER/Anesthesiologist present. See anesthesia record. - Emergency equipment available. - Monitor(s) applied. - Procedure pause. - Synchronized cardioversion. CARDIOVERSION POST-PROCEDURE - Procedure complete and patient tolerated well. - No complications during procedure. - Post-procedure ECG Rhythm(s): Sinus rhythm - Pads removed and skin intact. - Discharge criteria met. - Patient transferred and report given. Post cardioversion ECG completed. Patient was taken to recovery (PACU) in stable condition. Patient dismissed from Cardiac Catheterization Laboratory recovery to hospital room when discharge criteria met. Report shared with receiving RN. Service notified of results. Following cardioversion of atrial fibrillation or atrial flutter, the 2019 AHA/ACC/HRS Guideline for the Management of Patients With Atrial Fibrillation recommends anticoagulation for at least 4 weeks, followed by long-term anticoagulation based on thromboembolic risk as determined by the KRF6FX0-WSSm Score. For the complete report, see the Order-Level Documents. Procedure Note Pamela Melissa APRN, C.N.P., M.S.N. - 04/22/2024 For the complete report, see the Order-Level Documents. PROCEDURE TYPES 1. CARDIOVERSION EXTERNAL CARDIOVERSION FINAL IMPRESSIONS Successful cardioversion. some pac's noted CARDIOVERSION COMPLICATIONS Complication(s): No Complications CARDIOVERSION PRE-PROCEDURE - Anticoagulation status verified. - ANISH was completed. - Pre-procedure EGC Rhythm(s): Atrial flutter - Pre-existing intravenous catheter. - NPO status verified: >6 hrs Hours - Patient informed consent documented (Benefits, Risks/Complications andAlternative of procedure). - Discharge criteria reviewed. - Responsible adult along. - Client Relations Specialist verification completed. CARDIOVERSION INTRA-PROCEDURE - LOCKSTITCH BINDER/Anesthesiologist present. See anesthesia record. - Emergency equipment available. - Monitor(s) applied. - Procedure pause. - Synchronized cardioversion. CARDIOVERSION POST-PROCEDURE - Procedure complete and patient tolerated well. - No complications during procedure. - Post-procedure ECG Rhythm(s): Sinus rhythm - Pads removed and skin intact. - Discharge criteria met. - Patient transferred and report given. Post cardioversion ECG completed. Patient was taken to recovery (PACU) instable condition. Patient dismissed from Cardiac CatheterizationLaboratory recovery to hospital room when discharge criteria met. Reportshared with receiving RN. Service notified of results. Following cardioversion of atrial fibrillation or atrial flutter, the 2019AHA/ACC/HRS Guideline for the Management of Patients With AtrialFibrillation recommends anticoagulation for at least 4 weeks, followed bylong-term anticoagulation based on thromboembolic risk as determined bythe KAH3TE0-GMDk Score. For the complete report, see the Order-Level Documents. us Jennifer Resendez P.A.-C., M.P.H. CV CARDIAC SERVICES PROCEDURES Final Result MC CV IVIEW NA * (ANISH) 2D WITH LIMITED DOPPLER AND CONTRAST (04/22/2024 3:03 PM CDT) Ejection Fraction 40 MC CV EIMS Mid-Ascending Aorta 37 MC CV EIMS TR Vmax 2.31 MC CV EIMS MV mean gradient 4 MC CV EIMS TV Regurgitant Volume 22 MC CV EIMS Anatomical Region Laterality Modality Cardiac Electrop hysiology 04/22/2024 1:10 PM CDT Impressions 04/22/2024 3:58 PM CDT PRE-SEDATION ASSESSMENT & CONSENT (performed immediately prior to the start of the procedure): The goals, risks and alternatives to moderate sedation and the transesophageal echo were explained to the patient, questions were answered and consent was given to proceed. The physician reviewed the patient's history, medication list, allergies, and review of systems, and the findings as documented in the brusher operator and also performed a pertinent examination including a heart, airway and lung assessment. Mallampati Assessment: As documented in the RN pre-procedure assessment. Sedation plan: Transesophageal echo - moderate sedation. ASA physical status score: Class II. The patient's identity and all needed equipment were confirmed and a final confirmatory pause was performed by the team immediately prior to start. PROCEDURAL ECHO FINDINGS: Transesophageal echocardiogram performed at the request of the primary director of business services. Adult probe inserted without difficulty. 3D imaging was performed to evaluate mitral valve repair which could not be adequately assessed by 2D imaging. LEFT VENTRICLE:Enlarged left ventricular chamber size by visual estimate. Estimated left ventricular ejection fraction range 40% - 45%. RIGHT VENTRICLE:Enlarged right ventricular chamber size by visual estimate. Moderately reduced right ventricular systolic function. ATRIA:Severely enlarged left atrial size by visual estimate. No residual left atrial appendage visualized. Severely enlarged right atrial size by visual estimate. CARDIAC VALVES:Trileaflet aortic valve. Aortic valve strands. Thickened aortic valve. Trivial aortic valve regurgitation. Status post Carbomedics mitral valve annuloplasty (15-OCT-2015). Thickened mitral valve. Mitral valve diastolic mean Doppler gradient 4 mmHg (heart rate 103 BPM). Mild mitral valve regurgitation. Normal pulmonary valve. No pulmonary valve regurgitation. Status post Carbomedics tricuspid valve annuloplasty (15-OCT-2015). Thickened tricuspid valve. Mild-moderate tricuspid valve regurgitation (jerardo-septally directed). Tricuspid regurgitation ERO (PISA) 0.37 cm2. Tricuspid regurgitant volume (PISA) 22 ml. OTHER ECHO FINDINGS:Normal mid ascending aorta diameter of 37 mm. Upper limit of normal of the mid ascending aorta, for age, sex and BSA is 39 mm. Moderate immobile (atheroma 3-5 mm thickness without ulceration) atherosclerosis of the descending thoracic aorta. Normally connected pulmonary veins. Pulmonary artery bifurcation is normal. Normal superior vena cava. Agitated saline injection(s) performed during sedation. No [id number] shunt at atrial level at rest or with Valsalva release. No intracardiac mass or thrombus identified. No pericardial effusion. PROCEDURE NOTES:Procedure performed with appropriate level of sedation. A trained independent observer assisted with monitoring the patient's level of consciousness and physiologic status throughout the procedure, see nursing documentation. The patient tolerated the sedation and procedure well and was released awake, alert, and in good condition. Transesophageal echocardiogram completed without complications. Transgastric images acquired. See Sedation Narrator or other pertinent record in [facility] for additional procedure and sedation information. Physician signature for procedural medications and patient discharge when DC criteria met. For the complete report, see the Order-Level Documents. Narrative 04/22/2024 3:58 PM CDT For the complete report, see the Order-Level Documents. Hemodynamics Heart Rate: 114 BPM Blood Pressure: 158 / 120 mmHg ECG: Atrial fibrillation with ectopics, RVR Final Impressions 1. PRE-CARDIOVERSION ANISH: 2. No intracardiac thrombus identified. No evidence [...] Intact atrial septum without atrial level shunt. Procedure Note Aiyana Blakely M.D. - 04/22/2024 For the complete report, see the Order-Level Documents. Hemodynamics Heart Rate: 114 BPM Blood Pressure: 158 / 120 mmHg ECG: Atrial fibrillation with ectopics, RVR Final Impressions 1. PRE-CARDIOVERSION ANISH: 2. No intracardiac thrombus identified. No evidence of residual leftatrial appendage stump. 3. Status post mitral valve repair with a 32 mm CarboMedics band,tricuspid repair with a 26 mm CarboMedics band, and left atrial appendageamputation (15-OCT-2015). 4. Mitral valve diastolic mean Doppler gradient 4 mmHg (heart rate 103BPM). Mild anteriorly-directed mitral regurgitation. 5. Mild-moderate tricuspid valve regurgitation (jerardo-septally directed).ERO 0.37 cm2; Regurgitant volume 22 ml. 6. Estimated left ventricular ejection fraction range 40% - 45%.Moderately reduced right ventricular systolic function. 7. Moderate immobile (atheroma 3-5 mm thickness without ulceration)atherosclerosis of the descending thoracic aorta. 8. Intact atrial septum without atrial level shunt. Findings PRE-SEDATION ASSESSMENT & CONSENT (performed immediately prior to thestart of the procedure): The goals, risks and alternatives to moderatesedation and the transesophageal echo were explained to the patient,questions were answered and consent was given to proceed. The physicianreviewed the patient's history, medication list, allergies, and review ofsystems, and the findings as documented in the brusher operator and alsoperformed a pertinent examination including a heart, airway and lungassessment. Mallampati Assessment: As documented in the RN pre-procedureassessment. Sedation plan: Transesophageal echo - moderate sedation. ASAphysical status score: Class II. The patient's identity and all neededequipment were confirmed and a final confirmatory pause was performed bythe team immediately prior to start. PROCEDURAL ECHO FINDINGS:Transesophageal echocardiogram performed at the request of the primaryservice workday financials consultant. Adult probe inserted without difficulty. 3D imagingwas performed to evaluate mitral valve repair which could not beadequately assessed by 2D imaging. LEFT VENTRICLE:Enlarged left ventricular chamber size by visual estimate.Estimated left ventricular ejection fraction range 40% - 45%. RIGHT VENTRICLE:Enlarged right ventricular chamber size by visualestimate. Moderately reduced right ventricular systolic function. ATRIA:Severely enlarged left atrial size by visual estimate. No residualleft atrial appendage visualized. Severely enlarged right atrial size byvisual estimate. CARDIAC VALVES:Trileaflet aortic valve. Aortic valve strands. Thickenedaortic valve. Trivial aortic valve regurgitation. Status post Carbomedicsmitral valve annuloplasty (15-OCT-2015). Thickened mitral valve. Mitralvalve diastolic mean Doppler gradient 4 mmHg (heart rate 103 BPM). Mildmitral valve regurgitation. Normal pulmonary valve. No pulmonary valveregurgitation. Status post Carbomedics tricuspid valve annuloplasty(15-OCT-2015). Thickened tricuspid valve. Mild-moderate tricuspid valveregurgitation (jerardo-septally directed). Tricuspid regurgitation ERO(PISA) 0.37 cm2. Tricuspid regurgitant volume (PISA) 22 ml. OTHER ECHO FINDINGS:Normal mid ascending aorta diameter of 37 mm. Upperlimit of normal of the mid ascending aorta, for age, sex and BSA is 39 mm.Moderate immobile (atheroma 3-5 mm thickness without ulceration)atherosclerosis of the descending thoracic aorta. Normally connectedpulmonary veins. Pulmonary artery bifurcation is normal. Normal superiorvena cava. Agitated saline injection(s) performed during sedation. Larjggi-xx-bbks shunt at atrial level at rest or with Valsalva release. Nointracardiac mass or thrombus identified. No pericardial effusion. PROCEDURE NOTES:Procedure performed with appropriate level of sedation. Atrained independent observer assisted with monitoring the patient's levelof consciousness and physiologic status throughout the procedure, seenursing documentation. The patient tolerated the sedation and procedurewell and was released awake, alert, and in good condition. Transesophagealechocardiogram completed without complications. Transgastric imagesacquired. See Sedation Narrator or other pertinent record in Epic foradditional procedure and sedation information. Physician signature forprocedural medications and patient discharge when DC criteria met. For the complete report, see the Order-Level Documents. us Jennifer Resendez P.A.-C., M.P.H. CV ECHO PROCEDURES F inal Result * (TTE) 2D ECHO DOPPLER COLOR (04/13/2024 11:31 AM CDT) Ejection Fraction 50 MC CV EIMS Mid-Ascending Aorta 39 MC CV EIMS LV End-Diastolic Diameter 53 MC CV EIMS Left ventricular stroke volume index 36 MC CV EIMS Cardiac Output 4.7 MC CV EIMS Cardiac Index 2.58 MC CV EIMS TAPSE 12 MC CV EIMS Tricuspid Annular S 0.08 MC CV EIMS TR Vmax 2.3 MC CV EIMS Estimated RA Pressure (Echo RAP) 10 MC CV EIMS RV Systolic Pressure (with Echo RAP) 31 MC CV EIMS MV mean gradient 5 MC CV EIMS Anatomical Region Laterality Modality Echocardiography 04/13/2024 10:4 5 AM CDT Impressions 04/13/2024 1:45 PM CDT Transthoracic outreach echo interpretation. Echocardiogram performed per left ventricular function protocol. Last full echocardiogram performed 05/27/2023. Status post Carbomedics mitral valve annuloplasty (15-OCT-2015). Status post Carbomedics tricuspid valve annuloplasty (15-OCT-2015). LEFT VENTRICLE:Mildly enlarged left ventricular chamber size. Estimated left ventricular ejection fraction range 50% - 55%. Abnormal ventricular septal motion - post-operative. No regional wall motion abnormalities. Indeterminate left ventricular filling pressure. RIGHT VENTRICLE:Mild-moderately enlarged right ventricular chamber size by visual estimate. Mildly reduced right ventricular systolic function. Estimated right ventricular systolic pressure 31 mmHg (right atrial pressure of 10 mmHg). ATRIA:Severely enlarged left atrial size by visual estimate. Severely enlarged right atrial size by visual estimate. CARDIAC VALVES:Trileaflet aortic valve. Mildly thickened aortic valve. Trivial aortic valve regurgitation. Mitral annuloplasty ring identified. Mitral valve diastolic mean Doppler gradient 5 mmHg (heart rate 69 BPM). Mild mitral valve regurgitation. Eccentric mitral valve regurgitation. Normal pulmonary valve. Trivial pulmonary valve regurgitation. Tricuspid annuloplasty ring identified. Tricuspid valve diastolic mean Doppler gradient 3 mmHg (heart rate 74 BPM). Mild tricuspid valve regurgitation. OTHER ECHO FINDINGS:Normal inferior vena cava size with reduced inspiratory collapse (<50%). Borderline enlarged mid ascending aorta diameter of 39 mm. Upper limit of normal of the mid ascending aorta, for age, sex and BSA is 39 mm. No intracardiac mass or thrombus, but the left atrial appendage cannot be visualized adequately with transthoracic echo to exclude thrombus in this location. No pericardial effusion. For the complete report, see the Order-Level Documents. Narrative 04/13/2024 1:45 PM CDT For the complete report, see the Order-Level Documents. Hemodynamics Heart Rate: 66 BPM Blood Pressure: 142 / 79 mmHg ECG: Atrial fibrillation Final Impressions 1. Transthoracic outreach echo interpretation. 2. Status post Carbomedics mitral valve annuloplasty (15-OCT-2015), diastolic mean Doppler gradient 5 mmHg . Trivial mitral regurgitation (eccentric jet, [...] side comparison of images performed. Procedure Note Jorge Ordaz M.D. - 04/13/2024 For the complete report, see the Order-Level Documents. Hemodynamics Heart Rate: 66 BPM Blood Pressure: 142 / 79 mmHg ECG: Atrial fibrillation Final Impressions 1. Transthoracic outreach echo interpretation. 2. Status post Carbomedics mitral valve annuloplasty (15-OCT-2015),diastolic mean Doppler gradient 5 mmHg . Trivial mitral regurgitation(eccentric jet, anteriorly directed). 3. Status post Carbomedics tricuspid valve annuloplasty (15-OCT-2015),diastolic mean Doppler gradient 3 mmHg . Mild tricuspid regurgitation,eccentric jet. 4. Mild-moderately enlarged right ventricular chamber size, mildly reducedsystolic function, estimated right ventricular systolic pressure 31 mmHg(right atrial pressure of 10 mmHg). 5. Mildly enlarged left ventricular chamber size, no regional wall motionabnormalities, estimated ejection fraction range 50% - 55%. 6. Abnormal ventricular septal motion - post-operative. 7. Severe bi-atrial enlargement. 8. Borderline enlarged mid ascending aorta diameter of 39 mm, upper limitof normal for age, sex and BSA is 39 mm. 9. No pericardial effusion. 10. Compared to the report of 05/27/2023 no significant change hasoccurred. Side by side comparison of images performed. Findings Transthoracic outreach echo interpretation. Echocardiogram performed perleft ventricular function protocol. Last full echocardiogram duejuarey48/12/2023. Status post Carbomedics mitral valve annuloplasty(15-OCT-2015). Status post Carbomedics tricuspid valve annuloplasty(15-OCT-2015). LEFT VENTRICLE:Mildly enlarged left ventricular chamber size. Estimatedleft ventricular ejection fraction range 50% - 55%. Abnormal ventricularseptal motion - post-operative. No regional wall motion abnormalities.Indeterminate left ventricular filling pressure. RIGHT VENTRICLE:Mild-moderately enlarged right ventricular chamber size byvisual estimate. Mildly reduced right ventricular systolic function.Estimated right ventricular systolic pressure 31 mmHg (right atrialpressure of 10 mmHg). ATRIA:Severely enlarged left atrial size by visual estimate. Severelyenlarged right atrial size by visual estimate. CARDIAC VALVES:Trileaflet aortic valve. Mildly thickened aortic valve.Trivial aortic valve regurgitation. Mitral annuloplasty ring identified.Mitral valve diastolic mean Doppler gradient 5 mmHg (heart rate 69 BPM).Mild mitral valve regurgitation. Eccentric mitral valve regurgitation.Normal pulmonary valve. Trivial pulmonary valve regurgitation. Tricuspidannuloplasty ring identified. Tricuspid valve diastolic mean Dopplergradient 3 mmHg (heart rate 74 BPM). Mild tricuspid valve regurgitation. OTHER ECHO FINDINGS:Normal inferior vena cava size with reducedinspiratory collapse (<50%). Borderline enlarged mid ascending aortadiameter of 39 mm. Upper limit of normal of the mid ascending aorta, forage, sex and BSA is 39 mm. No intracardiac mass or thrombus, but the leftatrial appendage cannot be visualized adequately with transthoracic echoto exclude thrombus in this location. No pericardial effusion. For the complete report, see the Order-Level Documents. us Jorge Ordaz M.D. CV ECHO PROCEDURES Final R esult * HOLTER MONITOR - IN CLINIC LAWYER (03/10/2024 10:15 PM CDT) Only the most recent of5 resultswithin the time period is included. Min Heart Rate 46 bpm INFOB[facility] MOME Max Heart Rate 94 bpm [facility] Mean Heart Rate 62 bpm [facility] MOME VE Total Beats 5889 count [facility] MOME VE Percent Beats 8 percent INFOB[facility] MOME SVE Total Beats 3638 count INFOBION[facility] MOME SVE Percent Beats 5 percent [facility] MOME Holter Pauses 6 count [facility] MOME Pause Longest 2.17s duration [facility] M[facility] AF Count 0 count [facility] M[facility] AF Duration 0 duration [facility] M[facility] AF [place] 0 percent [facility]OME Symptom Count 0 count [facility] MOME 03/09/2024 8:41 AM CDT Narrative INFOB[facility] MOME - 03/21/2024 7:33 AM CDT [place] 1. The basic rhythm was sinus rhythm [...] were noted singly, non-conducted, in bigeminal patterns, in pairs, and in twenty-three 3-5 beat atrial runs with a maximum rate of 161 bpm. There were 3,638 PACs recorded with a PAC burden of 5%. 4. No symptomatic events were noted. Ethics Instructor: MONALISA Faye / Jessica Sumner Procedure Note Morales Henson M.D. - 03/21/2024 [place] 1. The basic rhythm was sinus rhythm with first degree AV delay.Intermittent sinus arrhythmia was seen. The total analyzed time was 19h55m. The heart rate varied from 46 to 94 bpm. The average HR was 62 bpm. 6pauses were seen, the longest being 2.17s in duration. 2. Premature ventricular complexes were noted singly, fused, in bigeminaland trigeminal patterns, in pairs, and in three 3 beat ventricular runswith a maximum rate of 83 bpm. There were 5,889 PVCs recorded with a PVCburden of 8%. 3. Premature supraventricular complexes were noted singly, non-conducted,in bigeminal patterns, in pairs, and in twenty-three 3-5 beat atrial runswith a maximum rate of 161 bpm. There were 3,638 PACs recorded with a PACburden of 5%. 4. No symptomatic events were noted. Ethics Instructor: MONALISA Faye Jorge Ordaz M.D. CV CARDIAC SERVICES PROCED URES Final Result INFOBIONIC MOME NA * Dermatopathology (02/12/2024 12:16 PM CDT) 02/15/2024 4:57 PM CDT MKTO Report Electronically Signed By Diego Ca M.D. I verify that I have examined all relevant slides/materi als for the specimen(s) and rendered or confirmed the diagnosis. 02/15/2024 4:57 PM CDT MKTO Gross Description A: Submitted as skin, right malar cheek is a shaved 0.6 cm oval of light beaulieu skin. Inked, sectioned. ESB, one block. B: Submitted as skin, left buccal cheek is a 0.7 cm oval shave of beaulieu macule. Inked, sectioned. ESB, one block. EAE:pp 02/15/2024 4:57 PM CDT MKTO Specimen Source A. right malar cheek B. right buccal cheek 02/15/2024 4:57 PM CDT MKTO Clinical Information A: Non-melanoma skin cancer B: Lentigo versus lentigo maligna 02/15/2024 4:57 PM CDT MKTO Interpretation FINAL DIAGNOSIS A. Skin, right malar cheek, shave biopsy: INTRADERMAL MELANOCYTIC NEVUS; SCAR B. Skin, right buccal cheek, shave biopsy: SEBORRHEIC KERATOSIS, PIGMENTED, INFLAMED Digital imaging was used in the diagnostic assessment of this case. 02/15/2024 4:57 PM CDT MKTO Skin (Right Malar Cheek) 02/12/2024 12:16 PM CDT Skin (Right Buccal Cheek) 02/12/2024 12:19 PM CDT us Christina Pyle M.D. LAB PATH DERM ORDERABLES Final Result Performing Organization Address [facility]/State/ZIP Co de Phone Number [facility] [address] [place] [address], [place] [facility] [address] * DX Ribs Bilateral 4 Views with Chest Posteroanterior 1 View (11/20/2023 3:58 PM DRY HOUSE ATTENDANT) Anatomical Region Laterality Modality Ribs, Chest, Musculoskeletal RST LOS, Musculoskeletal ARZ LOS, Muskuloskeletal FLA LOS Bilateral Digital Radiography Impressions 11/20/2023 4:47 PM DRY HOUSE ATTENDANT No significant change from 01/17/2021. Diffuse demineralization slightly limits evaluation for fracture. Within these limitations no definite rib fracture identified. Sternotomy with mediastinal clips and postoperative changes of mitral and tricuspid valvuloplasty. Stable mild enlargement of the cardiac silhouette. 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 Narrative 11/20/2023 4:47 PM DRY HOUSE ATTENDANT EXAM: DX RIBS BILATERAL 4 VIEWS WITH CHEST POSTEROANTERIOR 1 VIEW Procedure Note Jesus Jackson M.D. - 11/20/2023 EXAM: DX RIBS BILATERAL 4 VIEWS WITH CHEST POSTEROANTERIOR 1 VIEW IMPRESSION: No significant change from 01/17/2021. Diffuse demineralization slightlylimits evaluation for fracture. Within these limitations no definite ribfracture identified. Sternotomy with mediastinal clips and postoperativechanges of mitral and tricuspid valvuloplasty. Stable mild enlargement of the cardiacsilhouette. Thoracolumbar curvature with degenerative changes of thespine. Jay Neves M.D. IMG DIAGNOSTIC IMAGING PROCEDURES Final Result * Vitamin D, Immunoassay, Total, Serum (11/20/2023 3:07 PM DRY HOUSE ATTENDANT) Vitamin D, Immunoassay, Total, S 33 20 - 80 ng/mL 11/20/2023 8:12 PM DRY HOUSE ATTENDANT MKTO Comment: Optimum levels within the healthy population are 20-50, patients with bone disease may benefit from high levels within this range Blood (Blood, Venous) 11/20/2023 3:07 PM DRY HOUSE ATTENDANT 11/20/2023 7:16 PM DRY HOUSE ATTENDANT Jay Neves M.D. LAB BLOOD ADD-O N Final Result [facility] [address] [place] [address], [place] MKTO [facility] [place] [address] [place] [id number] * Calcium, Total (11/20/2023 3:07 PM DRY HOUSE ATTENDANT) Calcium, Total, P 9.4 8.8 - 10.2 mg/dL 11/20/2023 6:00 PM DRY HOUSE ATTENDANT OWAT Blood (Blood, Venous) 11/20/2023 3:07 PM DRY HOUSE ATTENDANT 11/20/2023 5:49 PM DRY HOUSE ATTENDANT Jay Neves M.D. LAB BLOOD ADD-O N Final Result [facility] [address] [place] [address], [place] [facility] [place] [address] [place] [address] * BI Breast Screening Bilateral with Tomosynthesis (10/20/2023 2:21 PM DRY HOUSE ATTENDANT) Only the most recent of3 resultswithin the time period is included. Anatomical Region Laterality Modality Breast, Breast Imaging RST L OS, Breast Imaging ARZ LOS, Breast Imaging FLA LOS Bilateral Mammography 10/20/2023 2:29 PM DRY HOUSE ATTENDANT Impressions 10/20/2023 2:33 PM DRY HOUSE ATTENDANT Negative. RECOMMENDATION: Annual Screening Mammogram ASSESSMENT: BI-RADS: 1: Negative. Narrative 10/20/2023 2:33 PM DRY HOUSE ATTENDANT EXAM: BI BREAST SCREENING BILATERAL WITH TOMOSYNTHESIS Current study was evaluated with a Computer Aided Detection (CAD) system. INDICATION: Screening mammogram. COMPARISON: Prior exam(s) were available and reviewed for comparison. DENSITY: c. The breast(s) are heterogeneously dense, which may obscure small masses. FINDINGS: No mammographic findings of malignancy. Procedure Note Alhaji Martinez M.D. - 10/20/2023 EXAM: BI BREAST SCREENING BILATERAL WITH TOMOSYNTHESIS Current study was evaluated with a Computer Aided Detection (CAD) system. INDICATION: Screening mammogram. COMPARISON: Prior exam(s) were available and reviewed for comparison. DENSITY: c. The breast(s) are heterogeneously dense, which may obscuresmall masses. FINDINGS: No mammographic findings of malignancy. IMPRESSION: Negative. RECOMMENDATION: Annual Screening Mammogram ASSESSMENT: BI-RADS: 1: Negative. Jay Neves M.D. [facility] IVETH ES Final Result * Lyme Ab Modified 2-Tier w/Reflex, Serum (09/18/2023 12:51 PM CDT) Lyme Ab Modified 2-Tier w/Reflex, S Negative Negative 09/21/2023 3:47 AM DRY HOUSE ATTENDANT [facility] Comment: Negative for antibodies to the Borrelia (Borreliella) species causing Lyme disease. Negative results may occur in recently infected (<=14 days) patients. If recent infection is suspected, repeat testing on a new sample collected in 7-14 days is recommended. Blood (Blood, Venous) 09/18/2023 12:51 PM CDT 09/19/2023 3:58 PM CDT Sadaf Pierre P.A.-C. LAB MICROBIOLOGY - BLOOD OR DERABLES Final Result Performing Organization Address [facility] Co de Phone Number [facility] [address] [place] [address], [facility] [place] [address] * Babesia, PCR, Parasitemia Reflex (09/18/2023 12:51 PM CDT) Pathologist [facility] Babesia microti Negative Negative 3 7:33 PM CDT DTL Babesia duncani Negative Negative 3 7:33 PM CDT DTL Babesia divergens/MO-1 Negative Negative 09/19/2023 7:33 PM CDT DTL Comment: ----ADDITIONAL INFORMATION---- This test was developed and its performance characteristics determined by [facility] in a manner consistent with CLIA requirements. This test has not been cleared or approved by the U.S. Food and Drug Administration. Blood (Blood, Venous) 09/18/2023 12:51 PM CDT 09/18/2023 10:22 PM CDT Sadaf Pierre P.A.-C. LAB MICROBIOLOGY - BLOOD OR DERABLES Final Result Performing Organization Address [facility] Co de Phone Number [facility] [address] [place] [address], [place] [address] [facility] [address] [place] [address] * Borrelia miyamotoi Detection PCR, Blood (09/18/2023 12:51 PM CDT) B. miyamotoi PCR, B Negative Negative 09/19 7:33 PM CDT DTL Comment: ----ADDITIONAL INFORMATION---- This test was developed and its performance characteristics determined by [facility] in a manner consistent with CLIA requirements. This test has not been cleared or approved by the U.S. Food and Drug Administration. Blood (Blood, Peripheral Draw) 09/18/2023 12:51 PM CDT 09/18/2023 10:22 PM CDT Sadaf Pierre P.A.-C. LAB MICROBIOLOGY - BLOOD OR DERABLES Final Result Performing Organization Address [facility] Co de Phone Number [facility] [address] [place] [address], [place] 200 [facility] [address] [place] [address] * Ehrlichia/Anaplasma PCR, Blood (09/18/2023 12:51 PM CDT) Anaplasma phagocytophilum Negative Negative 09/19/2023 7:34 PM CDT DTL Ehrlichia chaffeensis Negative Negative 09/19/2023 7:34 PM CDT DTL Ehrlichia ewingii/canis Negative Negative 09/19/2023 7:34 PM CDT DTL Ehrlichia muris eauclairensis Negative Negative 09/19/2023 7:34 PM CDT DTL Comment: ----ADDITIONAL INFORMATION---- This test was developed and its performance characteristics determined by [facility] in a manner consistent with CLIA requirements. This test has not been cleared or approved by the U.S. Food and Drug Administration. Blood (Blood, Venous) 09/18/2023 12:51 PM CDT 09/18/2023 10:22 PM CDT us Sadaf Pierre P.A.-C. LAB MICROBIOLOGY - BLOOD OR DERABLES Final Result [facility] [address] [place] [address], [facility] [address] [facility] [address] [place] [address] * (TTE) 2D ECHO DOPPLER COLOR (05/27/2023 10:27 AM CDT) Ejection Fraction 54 MC CV EIMS Sinus of Valsalva 34 MC CV EIMS Mid-Ascending Aorta 40 MC CV EIMS LV Mass Index 94 MC CV EIMS LV End-Diastolic Diameter 50 MC CV EIMS LV End-Systolic Diameter 34 MC CV EIMS Left ventricular stroke volume index 48 MC CV EIMS Cardiac Output 4.89 MC CV EIMS Cardiac Index 2.72 MC CV EIMS LV Interventricular Septal Wall Thickness 10 MC CV EIMS LV Posterior Wall Thickness 9 MC CV EIMS LV Relative Wall Thickness 36 MC CV EIMS RV 4-Chamber Basal Diameter 65 MC CV EIMS RV 4-Chamber Mid Diameter 47 MC CV EIMS RV 4-Chamber Length 70 MC CV EIMS TAPSE 16 MC CV EIMS Tricuspid Annular S 0.09 MC CV EIMS TR Vmax 2.56 MC CV EIMS Estimated RA Pressure (Echo RAP) 10 MC CV EIMS RV Systolic Pressure (with Echo RAP) 36 MC CV EIMS AV mean gradient 4 MC CV EIMS Aortic valve area 3.01 MC CV EIMS Aortic Valve Dimensionless Index 0.87 MC CV EIMS MV mean gradient 4 MC CV EIMS Mitral Valve Area (by PHT) 3.73 MC CV EIMS LA Volume Index 97 MC CV EIMS Aortic Valve Systolic Peak Velocity 1.3 MC CV EIMS Anatomical Region Laterality Modality Echocardiography 05/27/2023 9:41 AM CDT Impressions 05/27/2023 4:15 PM CDT Status post [employer] mitral valve annuloplasty (15-OCT-2015). Status post [employer] tricuspid valve annuloplasty (15-OCT-2015). Transthoracic outreach echo interpretation. LEFT VENTRICLE:Normal left ventricular chamber size. Normal left ventricular geometry. Calculated 2-D linear left ventricular ejection fraction 54%. Abnormal ventricular septal motion - post-operative. No regional wall motion abnormalities. Indeterminate left ventricular filling pressure. RIGHT VENTRICLE:Mild-moderately enlarged right ventricular chamber size. Borderline reduced right ventricular systolic function. Estimated right ventricular systolic pressure 36 mmHg (right atrial pressure of 10 mmHg). ATRIA:Severely enlarged left atrial size. Left atrial volume index 97 ml/m2. Severely enlarged right atrial size by visual estimate. CARDIAC VALVES:Trileaflet aortic valve. Mildly thickened aortic valve. Aortic valve strands. Trivial aortic valve regurgitation. Mitral annuloplasty ring identified. Mitral valve diastolic mean Doppler gradient 4 mmHg (heart rate 55 BPM). Trivial mitral valve regurgitation. Normal pulmonary valve. Normal pulmonary valve systolic velocities. Trivial pulmonary valve regurgitation. Tricuspid annuloplasty ring identified. Mild-moderate tricuspid valve regurgitation. Eccentric tricuspid valve regurgitant jet. OTHER ECHO FINDINGS:Normal inferior vena cava size with reduced inspiratory collapse (<50%). Normal sinus of Valsalva diameter of 34 mm. Borderline enlarged mid ascending aorta diameter of 40 mm. Upper limit of normal of the mid ascending aorta, for age, sex and BSA is 39 mm. No abdominal aortic aneurysm. Normal abdominal aorta Doppler flow pattern. No atrial level shunt by color flow imaging. No intracardiac mass or thrombus, but the left atrial appendage cannot be visualized adequately with transthoracic echo to exclude thrombus in this location. No pericardial effusion. For the complete report, see the Order-Level Documents. Narrative 05/27/2023 4:15 PM CDT For the complete report, see the Order-Level Documents. Hemodynamics Heart Rate: 56 BPM Blood Pressure: 144 / 79 mmHg ECG: Atrial fibrillation with ectopics Final Impressions 1. Transthoracic outreach echo interpretation. 2. Status post [employer] mitral valve annuloplasty (15-OCT-2015), diastolic mean Doppler gradient 4 mmHg . Trivial mitral regurgitation. 3. Status post [employer] tricuspid valve annuloplasty (15-OCT-2015). Diastolic mean Doppler gradient 2 mmHg. Havw-yu-svowzmst tricuspid regurgitation. 4. Mild-moderately enlarged right ventricular [...] systolic pressure; increased aortic root diameter. Side by side comparison of images performed. Procedure Note Jorge Ordaz M.D. - 05/27/2023 For the complete report, see the Order-Level Documents. Hemodynamics Heart Rate: 56 BPM Blood Pressure: 144 / 79 mmHg ECG: Atrial fibrillation with ectopics Final Impressions 1. Transthoracic outreach echo interpretation. 2. Status post [employer] mitral valve annuloplasty (15-OCT-2015),diastolic mean Doppler gradient 4 mmHg . Trivial mitral regurgitation. 3. Status post [employer] tricuspid valve annuloplasty (15-OCT-2015).Diastolic mean Doppler gradient 2 mmHg. Gwmm-uv-lchsyjun tricuspidregurgitation. 4. Mild-moderately enlarged right ventricular chamber size, borderlinereduced systolic function, estimated right ventricular systolic [id number] mmHg (right atrial pressure of 10 mmHg). 5. Normal left ventricular chamber size, no regional wall motionabnormalities, calculated 2-D linear ejection fraction 54%. 6. Normal left ventricular geometry, indeterminate filling pressure. 7. Severe bi-atrial enlargement. 8. Borderline enlarged mid ascending aorta diameter of 40 mm, upper limitof normal for age, sex and BSA is 39 mm . Trileaflet aortic valve withno functional abnormalities. 9. No pericardial effusion. 10. Compared to the report of 02/01/2020 the following changes haveoccurred: increased tricuspid regurgitation; increased right ventricularsystolic pressure; increased aortic root diameter. Side by sidecomparison of images performed. Findings Status post [employer] mitral valve annuloplasty (15-OCT-2015). Statuspost [employer] tricuspid valve annuloplasty (15-OCT-2015). Transthoracicoutreach echo interpretation. LEFT VENTRICLE:Normal left ventricular chamber size. Normal leftventricular geometry. Calculated 2-D linear left ventricular ejectionfraction 54%. Abnormal ventricular septal motion - post-operative. Noregional wall motion abnormalities. Indeterminate left ventricular fillingpressure. RIGHT VENTRICLE:Mild-moderately enlarged right ventricular chamber size.Borderline reduced right ventricular systolic function. Estimated rightventricular systolic pressure 36 mmHg (right atrial pressure of 10mmHg). ATRIA:Severely enlarged left atrial size. Left atrial volume index 97ml/m2. Severely enlarged right atrial size by visual estimate. CARDIAC VALVES:Trileaflet aortic valve. Mildly thickened aortic valve.Aortic valve strands. Trivial aortic valve regurgitation. Mitralannuloplasty ring identified. Mitral valve diastolic mean Doppler gradient4 mmHg (heart rate 55 BPM). Trivial mitral valve regurgitation. Normalpulmonary valve. Normal pulmonary valve systolic velocities. Trivialpulmonary valve regurgitation. Tricuspid annuloplasty ring identified.Mild-moderate tricuspid valve regurgitation. Eccentric tricuspid valveregurgitant jet. OTHER ECHO FINDINGS:Normal inferior vena cava size with reducedinspiratory collapse (<50%). Normal sinus of Valsalva diameter of 34 mm.Borderline enlarged mid ascending aorta diameter of 40 mm. Upper limit ofnormal of the mid ascending aorta, for age, sex and BSA is 39 mm. Noabdominal aortic aneurysm. Normal abdominal aorta Doppler flow pattern. Noatrial level shunt by color flow imaging. No intracardiac mass orthrombus, but the left atrial appendage cannot be visualized adequatelywith transthoracic echo to exclude thrombus in this location. Nopericardial effusion. For the complete report, see the Order-Level Documents. us Jorge Ordaz M.D. CV ECHO PROCEDURES Final R esult * Sodium (02/26/2023 4:20 PM CDT) Only the most recent of6 resultswithin the time period is included. Sodium, P 145 135 - 145 mmol/L 02/26/2023 6:31 PM CDT [facility] Blood (Blood, Venous) 02/26/2023 4:20 PM CDT 02/26/2023 6:03 PM CDT us Jorge Ordaz M.D. LAB BLOOD ADD-ON Final Res ult [facility] [address] [place] [address], [place] [facility] [place] [address] [place] [address] * Potassium (02/26/2023 4:20 PM CDT) Only the most recent of4 resultswithin the time period is included. Potassium, P 4.4 3.6 - 5.2 mmol/L 02/26/2023 6:31 PM CDT OWAT Blood (Blood, Venous) 02/26/2023 4:20 PM CDT 02/26/2023 6:03 PM CDT Jorge Ordaz M.D. LAB BLOOD ADD-ON Final Res ult [facility] [address] [place] [address], [place] [facility] [place] [address] [place] [address] * Creatinine with Estimated GFR (02/26/2023 4:20 PM CDT) Only the most recent of3 resultswithin the time period is included. Creatinine 0.96 0.59 - 1.04 mg/dL 02/26/2023 6:31 PM CDT OWAT Estimated GFR (eGFR) 62 >=60 mL/min/BSA 02/26/2023 6:31 PM CDT OWAT Comment: Estimated GFR calculated using the 2020 CKD_EPI creatinine equation. Blood (Blood, Venous) 02/26/2023 4:20 PM CDT 02/26/2023 6:03 PM CDT Jorge Ordaz M.D. LAB BLOOD ADD-ON Final Res ult [facility] [address] [place] [address], [place] [facility] [place] [address] [place] [address] * (ABNORMAL) Lipid Panel (12/05/2022 3:19 PM DRY HOUSE ATTENDANT) Only the most recent of8 resultswithin the time period is included. Triglycerides 48 mg/dL 12/05/2022 6:26 PM DRY HOUSE ATTENDANT OWAT Comment: ----REFERENCE VALUE---- Normal: <150 mg/dL Borderline High: 150-199 mg/dL High: 200-499 mg/dL Very High: > or =500 mg/dL Cholesterol, Total 218(H) mg/dL 2022 6:26 PM DRY HOUSE ATTENDANT OWAT Comment: ----REFERENCE VALUE---- Desirable: < 200 mg/dL Borderline High: 200 - 239 mg/dL High: > or = 240 mg/dL Cholesterol, LDL, Calculated 137(H) mg/dL 12/05/2022 6:26 PM DRY HOUSE ATTENDANT OWAT Comment: ----REFERENCE VALUE---- Desirable: <100 mg/dL Above Desirable: 100-129 mg/dL Borderline High: 130-159 mg/dL High: 160-189 mg/dL Very High: >=190 mg/dL ----ADDITIONAL INFORMATION---- LDL cholesterol calculated using the Pineda/NIH equation. Cholesterol, HDL 73 >=50 mg/dL 12/05/19 6:26 PM DRY HOUSE ATTENDANT OWAT Cholesterol, Non-HDL, Calculated 145 mg/dL 12/05/2022 6:26 PM DRY HOUSE ATTENDANT OWAT Comment: ----REFERENCE VALUE---- Desirable: <130 mg/dL Above Desirable: 130-159 mg/dL Borderline High: 160-189 mg/dL High: 190-219 mg/dL Very High: > or =220 mg/dL Fasting (8 HR or more) No 12/05/2022 5:53 PM DRY HOUSE ATTENDANT OWAT Blood (Blood, Venous) 12/05/2022 3:19 PM DRY HOUSE ATTENDANT 12/05/2022 5:53 PM DRY HOUSE ATTENDANT us Jay Neves M.D. LAB BLOOD ADD-O N Final Result [facility] [address] [place] [address], [place] OW[place] [facility] [place] [address] [place] [address] * DX Hand Left 3+ Views (09/12/2022 10:39 AM CDT) Anatomical Region Laterality Modality Upper Extremity, Hand, Muscu loskeletal RST LOS, Musculoskeletal ARZ LOS, Muskuloskeletal FLA LOS Left Digit al Radiography 09/12/2022 10:5 3 AM CDT Impressions 09/12/2022 10:54 AM CDT No evidence for acute fracture or traumatic malalignment. Demineralized appearance of the bones. Mild scattered polyarticular degenerative changes including at the first CMC joint/STT articulation. No erosive or reactive bony changes. Volar soft tissue calcification between the third and fourth metacarpals. No significant soft tissue swelling. Narrative 09/12/2022 10:54 AM CDT EXAM: DX HAND LEFT 3+ VIEWS COMPARISON: None Procedure Note Benedicto Jenkins M.D. - 09/12/2022 EXAM: DX HAND LEFT 3+ VIEWS COMPARISON: None IMPRESSION: No evidence for acute fracture or traumatic malalignment. Demineralizedappearance of the bones. Mild scattered polyarticular degenerative changes including atthe first CMC joint/STT articulation. No erosive or reactive bony changes. Volar soft tissuecalcification between the third and fourth metacarpals. No significant soft tissue swelling. Jay Neves M.D. IMG DIAGNOSTIC IMAGING PROCEDURES Final Result * Surgical Pathology (05/20/2022 11:11 AM CDT) Only the most recent of4 resultswithin the time period is included. 05/21/2022 12:21 PM CDT DTL Report electronically signed by Chris Edmonds M.D. I verify that I have examined all relevant slides/materia ls for the specimen(s) and rendered or confirmed the diagnosis. 05/21/2022 12:21 PM CDT DTL Gross Description A: Received in formalin labeled with the patient's name, medical record number, and colon, transverse colon is a 0.4 x 0.4 x 0.1 cm pale beaulieu-red irregular soft tissue. The specimen is submitted en toto in cassette A1. Grossed by ARG. B: Received in formalin labeled with the patient's name, medical record number, and colon, random sites (colon) are ten pale beaulieu-red irregular soft tissues, ranging from 0.3-0.5 cm in greatest dimension. Specimens are submitted en toto in cassette B1. Grossed by ARG. 05/21/2022 12:21 PM CDT DTL Interpretation FINAL DIAGNOSIS A. Colon, transverse, polyp, endoscopic biopsy: Tubular adenoma, low grade dysplasia. B. Colon, random sites, endoscopic biopsy: Collagenous colitis. 05/21/2022 12:21 PM CDT DTL Polyp (Colon) 05/20/2022 11: 11 AM CDT Biopsy (Colon) 05/20/2022 11 :11 AM CDT Cesar Huynh M.D. LAB SURG PATH ORDDemetrice YAN Final Result Performing Organization Address City/[facility]/ZIP Co de Phone Number [address] [place] [address] * Colon, Entire examined colon Colonoscopy-Gastroenterology Image Exam (05/20/2022 10:25 AM CDT) 05/20/2022 10:2 3 AM CDT Narrative IIMS - 05/20/2022 11:36 AM CDT This order has been created and auto-finalized to support the import of images acquired without order. The clinical documentation to support these images can be found on the encounter that produced images. us Provider Not In System IMG NON RAD IMAGING PROCE DURHANY Final Result Performing Organization Address City/[facility] Co de Phone Number IIMS NA * Colonoscopy (05/20/2022 10:23 AM CDT) Anatomical Region Laterality Modality Other 05/20/2022 10:2 3 AM CDT Impressions 05/20/2022 11:31 AM CDT Post-op Diagnoses: - One diminutive polyp in the transverse colon, removed with a cold biopsy forceps. Resected and retrieved. - The entire examined colon is normal. Biopsied. - The examined portion of the ileum was normal. Narrative 05/20/2022 11:31 AM CDT [facility] 9 GI GI Patient Name: Christie Carlisle Date of : 1945 Age: 76 Gender: Female Procedure Date: 05/20/2022 Procedure: Colonoscopy Providers: Cesar Huynh MD Referring Provider: Ryan Saavedra MD Pre-op Diagnoses: Chronic diarrhea Recommendation: - Discharge patient to home (ambulatory). - Await pathology results. - Follow up recommendations for patients with polyps identified during colonoscopy are impacted by several factors including polyp characteristics (size, number and histology), adequacy of colonic preparation and pertinent family history. For [facility] providers, detailed recommendations are available as an [email or web address] Care Process Model: <[email or web address] There may be some circumstances, specifically those patients with a personal or family history of significant colorectal neoplasms where these guidelines may not apply. Consider consultation in Gastroenterology for all other polyp findings or for patients who are not at average risk. - Return to referring physician at the next available appointment. Findings: The perianal and digital rectal examinations were normal. A diminutive polyp was found in the transverse colon. The polyp was sessile. The polyp was removed with a cold biopsy forceps. Resection and retrieval were complete. Estimated blood loss was minimal. The colon (entire examined portion) appeared normal. Biopsies for histology were taken with a cold forceps from the entire colon for evaluation of microscopic colitis. Estimated blood loss was minimal. The terminal ileum appeared normal. Procedural Details: The patient was seen, evaluated, history reviewed, airway and heart-lung exams were performed by licensed provider and were satisfactory for planned level of sedation care. The risks, benefits and alternatives for the procedure and sedation were discussed and informed consent was obtained. A procedural pause was conducted in the presence of assisting personnel to verify the correct patient identity and procedure to be performed. Throughout the procedure, the patient's blood pressure, pulse, and oxygen saturations were monitored continuously. The Colonoscope was introduced under direct vision through the anus and advanced to the terminal ileum, with identification of the appendiceal orifice and IC valve. The colonoscopy was technically difficult and complex due to a redundant colon. Successful completion of the procedure was aided by changing the patient to a supine position and applying abdominal pressure. The patient tolerated the procedure well. The quality of the bowel preparation was evaluated using the BBPS ([place] Bowel Preparation Scale) with scores of: Right Colon = 3, Transverse Colon = 3 and Left Colon = 3 (entire mucosa seen well with no residual staining, small fragments of stool or opaque liquid). The total BBPS score equals 9. The terminal ileum, ileocecal valve, appendiceal orifice, and rectum were photographed. Estimated Blood Loss: Estimated blood loss was minimal. Complications: No immediate complications. Sedation: No sedation administered. Attending Participation: I personally performed the entire procedure. Cesar Huynh MD 05/20/2022 11:31:04 AM This report has been signed electronically. Number of Addenda: 0 us Ryan Portillo M.D. GI PROCEDURE ORDERABLES Fi nal Result * Colonoscopy (05/20/2022 10:23 AM CDT) Anatomical Region Laterality Modality Other 05/20/2022 10:2 3 AM CDT us Ryan Portillo M.D. GI PROCEDURE ORDERABLES Fi nal Result * GI Pathogen Panel, PCR, Feces (04/29/2022 8:40 AM CDT) Only the most recent of2 resultswithin the time period is included. Specimen Source STOOL 7:42 PM CDT AUST Campylobacter species Negative Negative 04/29/2022 7:42 PM CDT AUST C. difficile toxin Negative Negative 2021 7:42 PM CDT AUST Plesiomonas shigelloides Negative Negative 04/29/2022 7:42 PM CDT AUST Salmonella species Negative Negative 2021 7:42 PM CDT AUST Vibrio species Negative Negative 04/29/2022 7:42 PM CDT AUST Vibrio cholerae Negative Negative 7:42 PM CDT AUST Yersinia species Negative Negative 04/29/20 7:42 PM CDT AUST Enteroaggregative E. coli (EAEC) Negative Negative 04/29/2022 7:42 PM CDT AUST Enteropathogenic E. coli (EPEC) Negative Negative 04/29/2022 7:42 PM CDT AUST Enterotoxigenic E. coli (ETEC) Negative Negative 04/29/2022 7:42 PM CDT AUST Shiga toxin producing E. coli Negative Negative 04/29/2022 7:42 PM CDT AUST Shigella/Enteroinvas patsy E. coli Negative Negative 04/29/2022 7:42 PM CDT AUST Cryptosporidium species Negative Negative 04/29/2022 7:42 PM CDT AUST Cyclospora cayetanensis Negative Negative 04/29/2022 7:42 PM CDT AUST Entamoeba histolytica Negative Negative 04/29/2022 7:42 PM CDT A[facility] Giardia Negative Negative 04/29/2022 7:42 PM CDT A[facility] Adenovirus F40/41 Negative Negative 022 7:42 PM CDT A[facility] Astrovirus Negative Negative 04/29/2022 7:42 PM CDT AUST Norovirus GI/GII Negative Negative 04/29/20 7:42 PM CDT A[facility] Rotavirus Ag, F Negative Negative 7:42 PM CDT A[facility] Sapovirus Negative Negative 04/29/2022 7:42 PM CDT AUST Comment: ----ADDITIONAL INFORMATION---- This assay is performed using the FDA-cleared HigherNextArray GI Panel ([employer] Stool (Stool) 04/29/2022 8:4 0 AM CDT 04/29/2022 3:57 PM CDT us Keyana Lara M.D. LAB MICROBIOLOGY - GENERAL O RDERABLES Final Result [facility] [address] [place] [address], [place] A[facility] [address] [place] [address] * tTG (Tissue Transglutaminase), Antibody, IgA (04/28/2022 4:33 PM CDT) Tissue Transglutaminase Ab, IgA, S <0.5 <15.0 U/mL 04/29/2022 12:58 PM CDT [facility] Blood (Blood, Venous) 04/28/2022 4:33 PM CDT 04/29/2022 10:55 AM CDT Keyana Lara M.D. LAB BLOOD ADD-ON Final Resul t Performing Organization Address City/[facility]/ZIP Co de Phone Number [facility] [address] [place] [address], [place] [facility] in [place] [address] [place] [address] * S-TSH (Thyroid-Stimulating Hormone - Sensitive) (04/28/2022 4:33 PM CDT) Only the most recent of3 resultswithin the time period is included. TSH, Sensitive 2.5 0.3 - 4.2 mIU/L 04/28/2022 6:31 PM CDT OW Blood (Blood, Venous) 04/28/2022 4:33 PM CDT 04/28/2022 6:01 PM CDT us Keyana Lara M.D. LAB BLOOD ADD-ON Final Resul t Performing Organization Address City/[facility]/ZIP Co de Phone Number [facility] [address] [place] [address], [place] OWAT [facility] [place] [address] [place] [address] * DX Abdomen 1 View (02/24/2022 12:22 PM CDT) Only the most recent of2 resultswithin the time period is included. Anatomical Region Laterality Modality Abdomen, Abdominal RST LOS, Abdominal ARZ LOS, Abdominal FLA LOS N/A Digital Radiography 02/24/2022 12:5 5 PM CDT Impressions 02/24/2022 12:57 PM CDT Scattered gas throughout the nondilated small bowel and colon. Prominence of the cecum measuring up to 9 cm in greatest diameter. No air-fluid levels on upright exam. No free air. Presumed pelvic phleboliths. Lumbar curve. Sternotomy. Mitral valve replacement. Prominent left ventricle. Narrative 02/24/2022 12:57 PM CDT EXAM: DX ABDOMEN 1 VIEW Procedure Note Sally Ocampo M.D. - 02/24/2022 EXAM: DX ABDOMEN 1 VIEW IMPRESSION: Scattered gas throughout the nondilated small bowel and colon. Prominenceof the cecum measuring up to 9 cm in greatest diameter. No air-fluid levels on uprightexam. No free air. Presumed pelvic phleboliths. Lumbar curve. Sternotomy. Mitral valvereplacement. Prominent left ventricle. Jay Neves M.D. IMG DIAGNOSTIC IMAGING PROCEDURES Final Result * (ABNORMAL) Urinalysis with Microscopic if Indicated (12/17/2021 9:10 AM DRY HOUSE ATTENDANT) Only the most recent of3 resultswithin the time period is included. Source Urine, Urine, Clean Catch 12/17/2021 9:14 AM DRY HOUSE ATTENDANT FB60 Clarity Clear Clear 12/17/2021 9:24 AM DRY HOUSE ATTENDANT FB60 Color Yellow 12/17/2021 9:24 AM DRY HOUSE ATTENDANT FB60 Comment: ----REFERENCE VALUE---- Colorless Yellow Beatrice Blood Moderate(A) Negative 12/17/2021 9:24 AM DRY HOUSE ATTENDANT FB60 Nitrite Negative Negative 12/17/2021 9:24 AM DRY HOUSE ATTENDANT FB60 Leukocyte Esterase Negative Negative 12/17/2021 9:24 AM DRY HOUSE ATTENDANT FB60 Protein Negative mg/dL 12/17/2021 9:24 AM DRY HOUSE ATTENDANT FB60 Comment: ----REFERENCE VALUE---- Negative Trace Glucose Negative Negative mg/dL 12/17/2021 9:24 AM DRY HOUSE ATTENDANT FB60 Ketones, QI(U) Trace(A) Negative mg/dL 12/17/2021 9:24 AM DRY HOUSE ATTENDANT FB60 Bilirubin Negative Negative 12/17/2021 9:24 AM DRY HOUSE ATTENDANT FB60 pH 5.5 5.0 - 8.0 12/17/2021 9:24 AM DRY HOUSE ATTENDANT FB60 Specific [place] 1.020 1.001 - 1.035 12/17/2021 9:24 AM DRY HOUSE ATTENDANT FB60 Urobilinogen 1.0 0.2 - 1.0 mg/dL 12/17/2021 9:24 AM DRY HOUSE ATTENDANT FB60 Urine (Urine, Clean Catch) 12/17/2021 9:10 AM DRY HOUSE ATTENDANT 12/17/2021 9:14 AM DRY HOUSE ATTENDANT Jay Neves M.D. LAB URINE ORDER BOO Final Result Performing Organization Address City/[facility]/ZIP Co de Phone Number [facility] [address] [place] [address], [place] FB60 [address] [place] [address] * (ABNORMAL) Microscopic Manual (12/17/2021 9:10 AM DRY HOUSE ATTENDANT) Only the most recent of5 resultswithin the time period is included. White Blood Cells Occ-3 /hpf 12/17/2021 9:25 AM DRY HOUSE ATTENDANT FB60 Comment: ----REFERENCE VALUE---- Males: 0-3 Females: 0-10 Unknown: 0-10 Red Blood Cells Occ-2 0 - 2 /hpf 12/17/2021 9:25 AM DRY HOUSE ATTENDANT FB60 Hyaline Casts Occasional /lpf 12/17/2021 9:25 AM DRY HOUSE ATTENDANT FB60 Squamous Cells Occ-3 /hpf 12/17/2021 9:25 AM DRY HOUSE ATTENDANT FB60 Bacteria Present(A) None Seen 12/17/2021 9:25 AM DRY HOUSE ATTENDANT FB60 Urine 12/17/2021 9:10 AM DRY HOUSE ATTENDANT 12/17/2021 9:14 AM DRY HOUSE ATTENDANT Jay Neves M.D. LAB URINE ORDER BOO Final Result Performing Organization Address City/[facility]/ZIP Co de Phone Number [facility] [address] [place] [address], [place] FB60 [address] [place] [address] * Hemoglobin A1c (11/26/2021 3:25 PM DRY HOUSE ATTENDANT) Pathologist [facility] Hemoglobin A1c, B 5.0 4.2 - 5.6 % 11/26/2021 4:45 PM DRY HOUSE ATTENDANT [facility] Blood (Blood, Venous) 11/26/2021 3:25 PM DRY HOUSE ATTENDANT 11/26/2021 4:20 PM DRY HOUSE ATTENDANT Jay Neves M.D. LAB BLOOD ADD-O N Final Result [facility] [address] [place] [address], [place] OWAT [facility] [place] [address] [place] [address] * Thiamine (Vitamin B1), Whole Blood (11/25/2021 1:45 PM DRY HOUSE ATTENDANT) Pathologist [facility] Thiamine (Vitamin B1), WB 101 70 - 180 nmol/L 11/28/2021 7:30 AM DRY HOUSE ATTENDANT [facility] Comment: ----ADDITIONAL INFORMATION---- This test was developed and its performance characteristics determined by [facility] in a manner consistent with CLIA requirements. This test has not been cleared or approved by the U.S. Food and Drug Administration. Blood (Blood, Venous) 11/25/2021 1:45 PM DRY HOUSE ATTENDANT 11/26/2021 2:01 PM DRY HOUSE ATTENDANT Teodoro Pyle M.D., M.P.H. LAB BLOOD NON ADD-ON Final Result [facility] [address] [place] [address] [facility] Dept. of Laboratory Medicine and Pathology [address] [place] [address] * Methylmalonic Acid (MMA), Quantitative, Serum (11/25/2021 8:40 AM DRY HOUSE ATTENDANT) Pathologist [facility] Methylmalonic Acid, QN, S 0.25 <=0.40 nmol/mL 11/27/2021 8:41 AM DRY HOUSE ATTENDANT DT Comment: No cellular B-12 deficiency. ----ADDITIONAL INFORMATION---- This test was developed and its performance characteristics determined by [facility] in a manner consistent with CLIA requirements. This test has not been cleared or approved by the U.S. Food and Drug Administration. Blood 11/25/2021 8:40 AM DRY HOUSE ATTENDANT 11/26/2021 10:34 AM DRY HOUSE ATTENDANT us Teodoro Pyle M.D., M.P.H. LAB BLOOD NON ADD-ON Final Result Performing Organization Address City/[facility]/ZIP Co de Phone Number [facility] [address] [place] [address], [place] [facility] [address] [place] [address] * Pernicious Anemia [place] (11/25/2021 8:40 AM DRY HOUSE ATTENDANT) [facility] Vitamin B12 Assay, S 213 180 - 914 ng/L 11/26/2021 9:37 AM DRY HOUSE ATTENDANT [facility] Comment:B-12 <400; MMA test was performed. Blood (Blood, Venous) 11/25/2021 8:40 AM DRY HOUSE ATTENDANT 11/26/2021 8:00 AM DRY HOUSE ATTENDANT us Teodoro Pyle M.D., M.P.H. LAB BLOOD NON ADD-ON Final Result [facility] [address] [place] [address] [facility] Dept. of Laboratory Medicine and Pathology [address] [place] [address] * Influenza A/B and RSV, PCR, Varies (11/19/2021 1:11 PM DRY HOUSE ATTENDANT) [facility] Influenza A/B and RSV, Source Swab, Nasopharynx 11/21/2021 6:37 AM DRY HOUSE ATTENDANT DTL Influenza A, PCR Undetected Undetected 11/21/19 22 6:37 AM DRY HOUSE ATTENDANT DTL Comment:Influenza A RNA abse nt. Influenza B, PCR Undetected Undetected 11/21/19 22 6:37 AM DRY HOUSE ATTENDANT DTL Comment:Influenza B RNA abse nt. Respiratory Syncytial Virus, PCR Undetected Undetected 11/21/2021 6:37 AM DRY HOUSE ATTENDANT DTL Comment: RSV RNA absent. ----ADDITIONAL INFORMATION---- This test has been modified from the range operator's instructions. Its performance characteristics were determined by [facility] in a manner consistent with CLIA requirements. This test has not been cleared or approved by the U.S. Food and Drug Administration. Varies (Nasopharynx) 11/19/2021 1:11 PM DRY HOUSE ATTENDANT 11/19/2021 10:51 PM DRY HOUSE ATTENDANT Moy Mena D.O. LAB MICROBIOLOGY - GENERAL ORDERABLES Final Result [facility] [address] [place] [address], [place] [facility] [address] [place] [address] * SARS Coronavirus-2 RNA, V Symptomatic (11/19/2021 1:11 PM DRY HOUSE ATTENDANT) Only the most recent of2 resultswithin the time period is included. SARS-CoV-2 Specimen Source Swab, Nasopharynx 11/20/2021 4:15 AM DRY HOUSE ATTENDANT MKTO SARS CoV-2 RNA, TMA Undetected Undetected 11/20/2021 4:15 AM DRY HOUSE ATTENDANT MKTO Comment: SARS-CoV-2 RNA absent. This result does not rule out COVID-19 in the patient, as the sensitivity of the test depends on the timing of the specimen collection and the quality of the specimen. Result should be correlated with patient's history and clinical presentation. ----ADDITIONAL INFORMATION---- This molecular amplification test was performed using the Aptima SARS-CoV-2 assay ([employer] on the Pro[employer]is System under emergency use authorization (EUA) by the U.S. Food and Drug Administration. Fact sheets for this EUA assay can be found at the following links: For Healthcare Providers: https://www.fda.gov/media/119061/download For Patients: https://www.fda.gov/media/356095/download Varies (Nasopharynx) 11/19/2021 1:11 PM DRY HOUSE ATTENDANT 11/19/2021 8:04 PM DRY HOUSE ATTENDANT us Moy Mena D.O. LAB MICROBIOLOGY - GENERAL ORDERABLES Final Result Performing Organization Address City/[facility] Co de Phone Number [facility] [address] [place] [address], [place] MKTO [facility] [place] [address] [place] [address] * Otorhinolaryngology Image Exam-Otorhinolaryngology Image Exam (07/12/2021 10:15 AM CDT) Only the most recent of3 resultswithin the time period is included. 07/12/2021 10:0 7 AM CDT Narrative IIMS - 07/12/2021 11:22 AM CDT This order has been created and auto-finalized to support the import of images acquired without order. The clinical documentation to support these images can be found on the encounter that produced images. us Provider Not In System IMG NON RAD IMAGING PROCE DURES Final Result Performing Organization Address [facility] Co de Phone Number [facility] NA * [place] ARTHCS ASP/INJ MJR JT US (04/03/2021 1:12 PM CDT) Narrative MMODAL - 04/03/2021 1:12 PM CDT Bobby Stuart M.D. 04/03/2021 1:23 PM Shoulder site - R subacromial bursa : injection only Date/Time: 04/03/2021 1:12 PM Performed by: Bobby Stuart M.D. Authorized by: Bobby Stuart M.D. PROCEDURE DETAILS Procedure Location shoulder Shoulder site: R subacromial bursa Site prep: patient was prepped and draped in usual sterile fashion Patient position: seated Procedural approach: posterior Procedure performed: injection only Needle gauge: 21 G Procedural Medication The following medications were administered at the target site(s) Local anesthetic: 8 mL lidocaine 10 mg/mL (1 %) Corticosteroid: 40 mg triamcinolone acetonide 40 mg/mL CONSENT Consent obtained: written [employer] All relevant documentation and testing were reviewed and available. All required blood products, implants, devices and or special equipment were made available as applicable. Pre-procedure verification was conducted and the correct site was marked if required. A fire risk assessment was done as applicable. The procedural time-out was conducted prior to performing the procedure and confirmed in a procedural pause. PRE-PROCEDURE DETAILS Procedure purpose: therapeutic Indications: Pain Appropriate hand hygiene, gown, cap, mask, protective eyewear, sterile gloves, skin preparation, sterile drape, and strict aseptic technique were utilized as applicable for the procedure: yes Skin preparation: chlorhexidine SEDATION / ANESTHESIA Anesthesia method: none POST-PROCEDURE DETAILS Procedure completed successfully: yes Complications: no apparent complications Discharge instructions: ice area as needed for comfort Bobby Stuart M.D. PROCEDURE/MINOR SURGICAL ORDERABLES Final Result MM[facility]AL NA * DX Shoulder Right 2+ Views (04/03/2021 12:59 PM CDT) Anatomical Region Laterality Modality Upper Extremity, Shoulder, M usculoskeletal RST LOS, Musculoskeletal ARZ LOS, Muskuloskeletal FLA LOS Right Digit al Radiography 04/03/2021 1:03 PM CDT Impressions 04/03/2021 1:04 PM CDT Negative for fracture. Mild degenerative changes at the acromioclavicular joint. Small spur along the inferior rim of the glenoid. Demineralization. Sternotomy. Surgical clips. Narrative 04/03/2021 1:04 PM CDT EXAM: DX SHOULDER RIGHT 2+ VIEWS Procedure Note Willie Salgado M.D. - 04/03/2021 EXAM: DX SHOULDER RIGHT 2+ VIEWS IMPRESSION: Negative for fracture. Mild degenerative changes at the acromioclavicular joint. Small spur along the inferior rim of theglenoid. Demineralization. Sternotomy. Surgical clips. Bobby Stuart M.D. IMG DIAGNOSTIC IMAGING [place] OCEDURES Final Result * DX Ribs Right 2 Views (01/17/2021 12:29 PM DRY HOUSE ATTENDANT) Only the most recent of2 resultswithin the time period is included. Anatomical Region Laterality Modality Ribs, Chest, Musculoskeletal RST LOS, Musculoskeletal ARZ LOS, Muskuloskeletal FLA LOS Right Digital Radiography 01/18/2021 12:0 4 PM DRY HOUSE ATTENDANT Impressions 01/18/2021 12:06 PM DRY HOUSE ATTENDANT Demineralized appearance of the bones slightly limits evaluation for fracture. Questionable nondisplaced fractures of the anterior right rib 5-7. No pneumothorax. Median sternotomy and postoperative changes of mitral and tricuspid valvuloplasty. Curvature of the spine. Narrative 01/18/2021 12:06 PM DRY HOUSE ATTENDANT EXAM: DX RIBS RIGHT 2 VIEWS COMPARISON: 09/15/2018 Procedure Note Benedicto Jenkins M.D. - 01/18/2021 EXAM: DX RIBS RIGHT 2 VIEWS COMPARISON: 09/15/2018 IMPRESSION: Demineralized appearance of the bones slightly limits evaluation for fracture. Questionable nondisplaced fractures of the anterior right rib5-7. No pneumothorax. Median sternotomy and postoperative changes of mitral and tricuspid valvuloplasty. Curvature of the spine. Kelly Peralta.H.S.A., R.N. IMG DIAGNOSTIC IMAGIN G PROCEDURES Final Result * (ABNORMAL) Glucose, Fasting (09/11/2020 8:31 AM CDT) Glucose, P 101(H) 70 - 100 mg/dL 09/11/2020 11:14 AM CDT OWAT Last Intake 14 hr 09/11/2020 10:28 AM CDT OWAT Blood (Blood, Venous) 09/11/2020 8:31 AM CDT 09/11/2020 10:28 AM CDT Andreas Brooks M.D. LAB BLOOD NON AD D-ON Final Result [facility] [address] [place] [address], [place] OW[place] [facility] [place] [address] [place] [address] * SARS-CoV-2 Total Antibody, Serum (05/15/2020 3:55 PM CDT) SARS-CoV-2 Nucleocapsid Total Ab, S Negative Negative 05/15/2020 7:36 PM CDT [facility] Comment: No antibodies to SARS-CoV-2 detected. Negative results may occur in serum collected too soon following infection or in immunosuppressed patients. Follow-up testing with a molecular test is recommended in symptomatic patients. This test should not be used to exclude active/recent COVID-19. ----ADDITIONAL INFORMATION---- Testing was performed using the [employer] [id number] Reagent assay from [employer], which has received Emergency Use Authorization(EUA) by the U.S. Food and Drug Administration. Fact sheets for this Emergency Use Authorization (EUA) assay can be found at the following links: For Healthcare Providers: https://www.fda.gov/media/492674/download For Patients: https://www.fda.gov/media/230620/download Blood 05/15/2020 3:55 PM CDT 05/15/2020 7:08 PM CDT Jay Neves M.D. LAB MICROBIOLOG Y - BLOOD ORDERABLES Final Result [facility] [address] [place] [id number], [facility] in [address] [address] * (TTE) 2D ECHO DOPPLER COLOR (02/01/2020 2:00 PM CDT) Ejection Fraction 57 MC CV EIMS Mid-Ascending Aorta 37 MC CV EIMS LV Mass Index 96 MC CV EIMS LV End-Diastolic Diameter 49 MC CV EIMS LV End-Systolic Diameter 32 MC CV EIMS Left ventricular stroke volume index 44 MC CV EIMS Cardiac Output 5.74 MC CV EIMS Cardiac Index 2.93 MC CV EIMS LV Interventricular Septal Wall Thickness 11 MC CV EIMS LV Posterior Wall Thickness 10 MC CV EIMS LV Relative Wall Thickness 41 MC CV EIMS TAPSE 18 MC CV EIMS Tricuspid Annular S 0.12 MC CV EIMS TR Vmax 2.25 MC CV EIMS Estimated RA Pressure (Echo RAP) 5 MC CV EIMS RV Systolic Pressure (with Echo RAP) 25 MC CV EIMS Aortic valve area 3.12 MC CV EIMS Aortic Valve Dimensionless Index 0.90 MC CV EIMS MV mean gradient 4 MC CV EIMS Mitral Valve Area (by PHT) 3.38 MC CV EIMS LA Volume Index 51 MC CV EIMS Anatomical Region Laterality Modality Echocardiography 02/01/2020 1:17 PM CDT Impressions 02/01/2020 3:21 PM CDT Status post [employer] mitral valve anuloplasty (15-OCT-2015). Status post [employer] tricuspid valve anuloplasty (15-OCT-2015). Transthoracic outreach echo interpretation. LEFT VENTRICLE: Normal left ventricular chamber size. Normal left ventricular wall thickness. Calculated 2-D linear left ventricular ejection fraction 57 %. Left ventricular volumetric assessment not performed because of rhythm abnormality. Abnormal ventricular septal motion - post-operative. No regional wall motion abnormalities. Indeterminate left ventricular diastolic function grade. RIGHT VENTRICLE: Moderately enlarged right ventricular chamber size by visual estimate. Normal right ventricular function. Estimated right ventricular systolic pressure 25 mmHg (systolic blood pressure 136 mmHg). ATRIA: Severe bi-atrial enlargement. Left atrial volume index 51 ml/m^2. CARDIAC VALVES: Trileaflet aortic valve. Mildly thickened aortic valve. No aortic valve regurgitation. Mitral anuloplasty ring identified. Mitral valve diastolic mean Doppler gradient 4 mmHg (heart rate 67 BPM). Trivial mitral valve regurgitation. Normal pulmonary valve. Trivial pulmonary valve regurgitation. Tricuspid anuloplasty ring identified. Tricuspid valve diastolic mean Doppler gradient 2 mmHg (heart rate 68 BPM). Trivial tricuspid valve regurgitation. OTHER ECHO FINDINGS: Normal inferior vena cava size with normal inspiratory collapse (>50%). Normal ascending aorta dimension. Abdominal aorta incompletely visualized. Normal abdominal aorta Doppler flow pattern. No intracardiac mass or thrombus, but the left atrial appendage cannot be visualized adequately with transthoracic echo to exclude thrombus in this location. No atrial level shunt by color flow imaging. No pericardial effusion. For the complete report, see the Order-Level Documents. Narrative 02/01/2020 3:21 PM CDT For the complete report, see the Order-Level Documents. Final Impressions 1. Normal left ventricular chamber size. Calculated ejection fraction 57%. Abnormal septal motion (postoperative). Otherwise, no regional wall motion abnormalities. 2. Moderately enlarged right ventricular chamber size by visual estimate. Normal systolic function. Estimated right ventricle systolic pressure 25 mmHg. 3. Severe bi-atrial enlargement. Left atrial volume index 51 ml/m^2. 4. Status post [employer] mitral valve anuloplasty (15-OCT-2015). 5. Mitral valve diastolic mean Doppler gradient 4 mmHg (heart rate 67 BPM). Trivial mitral regurgitation. 6. Status post [employer] tricuspid valve anuloplasty (15-OCT-2015). 7. Tricuspid valve diastolic mean Doppler gradient 2 mmHg (heart rate 68 BPM). Trivial tricuspid regurgitation. 8. Normal inferior vena cava size with normal inspiratory collapse (>50%). 9. No pericardial effusion. 10. Compared to the report of 05/25/2019 no significant change has occurred. Side by side comparison of images performed. Procedure Note Jorge Ordaz M.D. - 02/01/2020 For the complete report, see the Order-Level Documents. Final Impressions 1. Normal left ventricular chamber size. Calculated ejection [id number]%. Abnormal septal motion (postoperative). Otherwise, no regional wall motionabnormalities. 2. Moderately enlarged right ventricular chamber size by visual estimate.Normal systolic function. Estimated right ventricle systolic pressure 25 mmHg. 3. Severe bi-atrial enlargement. Left atrial volume index 51 ml/m^2. 4. Status post [employer] mitral valve anuloplasty (15-OCT-2015). 5. Mitral valve diastolic mean Doppler gradient 4 mmHg (heart rate 67BPM). Trivial mitral regurgitation. 6. Status post [employer] tricuspid valve anuloplasty (15-OCT-2015). 7. Tricuspid valve diastolic mean Doppler gradient 2 mmHg (heart rate 68BPM). Trivial tricuspid regurgitation. 8. Normal inferior vena cava size with normal inspiratory collapse(>50%). 9. No pericardial effusion. 10. Compared to the report of 05/25/2019 no significant change hasoccurred. Side by side comparison of images performed. Findings Status post [employer] mitral valve anuloplasty (15-OCT-2015). Statuspost [employer] tricuspid valve anuloplasty (15-OCT-2015). Transthoracic outreach echointerpretation. LEFT VENTRICLE: Normal left ventricular chamber size. Normal left ventricularwall thickness. Calculated 2-D linear left ventricular ejection fraction 57 %. Leftventricular volumetric assessment not performed because of rhythm abnormality. Abnormalventricular septal motion - post-operative. No regional wall motion abnormalities. Indeterminateleft ventricular diastolic function grade. RIGHT VENTRICLE: Moderately enlarged rightventricular chamber size by visual estimate. Normal right ventricular function. Estimated rightventricular systolic pressure 25 mmHg (systolic blood pressure 136 mmHg). ATRIA: Severebi-atrial enlargement. Left atrial volume index 51 ml/m^2. CARDIAC VALVES: Trileaflet aorticvalve. Mildly thickened aortic valve. No aortic valve regurgitation. Mitralanuloplasty ring identified. Mitral valve diastolic mean Doppler gradient 4 mmHg (heart rate 67 BPM).Trivial mitral valve regurgitation. Normal pulmonary valve. Trivial pulmonary valveregurgitation. Tricuspid anuloplasty ring identified. Tricuspid valve diastolic mean Dopplergradient 2 mmHg (heart rate 68 BPM). Trivial tricuspid valve regurgitation. OTHER ECHOFINDINGS: Normal inferior vena cava size with normal inspiratory collapse (>50%). Normal ascendingaorta dimension. Abdominal aorta incompletely visualized. Normal abdominal aorta Dopplerflow pattern. No intracardiac mass or thrombus, but the left atrial appendage cannot bevisualized adequately with transthoracic echo to exclude thrombus in this location. No atriallevel shunt by color flow imaging. No pericardial effusion. For the complete report, see the Order-Level Documents. us Chris Silva M.D., Ph.D. CV ECHO PROC EDURES Final Result * ECHO STRESS 2D WITH COLOR AND LIMITED DOPPLER (05/25/2019 1:51 PM CDT) Ejection Fraction 60 MC CV EIMS Mid-Ascending Aorta 38 MC CV EIMS Wall Motion Score Index 1.00 MC CV EIMS LV Mass Index 99 MC CV EIMS LV End-Diastolic Diameter 46 MC CV EIMS LV End-Systolic Diameter 29 MC CV EIMS LV Interventricular Septal Wall Thickness 11 MC CV EIMS LV Posterior Wall Thickness 12 MC CV EIMS LV Relative Wall Thickness 52 MC CV EIMS TR Vmax 2.60 MC CV EIMS Estimated RA Pressure (Echo RAP) 5 MC CV EIMS RV Systolic Pressure (with Echo RAP) 32 MC CV EIMS MV mean gradient 4 MC CV EIMS WMSI At Rest 1.00 MC CV EIMS WMSI At Peak Stress 1.00 MC CV EIMS Anatomical Region Laterality Modality Echocardiography , Other 05/25/2019 12:4 8 PM CDT Narrative 05/25/2019 2:55 PM CDT For the complete report, see the Order-Level Documents below. Final Impressions 1. Exercise echocardiogram negative for myocardial ischemia. [...] at stress. Decreased ventricular ectopy near peak exercise, recurring upon recovery. Findings STRESS TEST: The patient exercised for 4:38 min:sec on the Dariel protocol. The test was terminated due to dyspnea and leg distress. Patient stated inability to continue exercise. The patient achieved a workload of 5.6 METS and 78 % FAC. Blood pressure at rest 132 mmHg/64 mmHg. Blood pressure with exercise 146 mmHg/68 mmHg. Normal blood pressure response to exercise. A peak heart rate of 104 BPM was achieved (70 % age-predicted maximal HR) at stress. Highest heart rate achieved during study period was 121 which occurred at 3 minutes and 8 seconds recovery. The baseline ECG demonstrated VPC's and ventricular bigeminy. Baseline rhythm probably sinus with diminutive P-waves. Ventricular bigeminy and SVT present at stress. Couplet VPCs and frequent complex ectopy present in recovery period. With stress, the ECG demonstrated <1mm beat to beat variability ST depression. The stress ECG was negative for ischemia at heart rate achieved. REST IMAGES: Please see Nursing Notes for additional information. LEFT VENTRICLE: Normal left ventricular chamber size. Normal left ventricular wall thickness. Calculated left ventricular ejection fraction 60 %. Abnormal ventricular septal motion - post-operative. No regional wall motion abnormalities. Indeterminate left ventricular diastolic function grade. RIGHT VENTRICLE: Moderate right ventricular enlargement. Normal right ventricular function. Estimated right ventricular systolic pressure 32 mmHg (systolic blood pressure 132 mmHg). ATRIA: Severe bi-atrial enlargement. CARDIAC VALVES: Status post [employer] mitral valve anuloplasty (15-OCT-2015). Mitral valve diastolic mean Doppler gradient 4 mmHg (heart rate 64 BPM). Trivial mitral valve regurgitation. Normal pulmonary valve. Trivial pulmonary valve regurgitation. Status post [employer] tricuspid valve anuloplasty (15-OCT-2015). Tricuspid valve diastolic mean Doppler gradient 2 mmHg (heart rate 79 BPM). Trivial tricuspid valve regurgitation. OTHER ECHO FINDINGS: No intracardiac mass or thrombus, but the left atrial appendage cannot be visualized adequately with transthoracic echo to exclude thrombus in this location. No pericardial effusion. Normal ascending aorta dimension. For the complete report, see the Order-Level Documents below. See PDF For Result Procedure Note Jorge Ordaz M.D. - 05/25/2019 For the complete report, see the Order-Level Documents below. Final Impressions 1. Exercise echocardiogram negative for myocardial ischemia. 2. Failure to achieve target heart rate could reduce the sensitivity ofthe test (images acquired at less than 100 BPM). 3. The patient's exercise capacity was below average (5.6 Mets, 78% FAC,70% age-predicted maximal HR). 4. The test was terminated due to dyspnea and leg distress. No anginareported. The patient stated inability to continue exercise. 5. Ejection fraction response from 60 % at rest to 65 % at peak stress. 6. Left ventricular end-systolic volume decreased with stress. 7. No regional wall motion abnormalities with stress. 8. Ventricular bigeminy and SVT present at stress. Decreased ventricularectopy near peak exercise, recurring upon recovery. Findings STRESS TEST: The patient exercised for 4:38 min:sec on the Bruceprotocol. The test was terminated due to dyspnea and leg distress. Patient stated inability tocontinue exercise. The patient achieved a workload of 5.6 METS and 78 % FAC. Blood pressureat rest 132 mmHg/64 mmHg. Blood pressure with exercise 146 mmHg/68 mmHg. Normal bloodpressure response to exercise. A peak heart rate of 104 BPM was achieved (70 % age-predictedmaximal HR) at stress. Highest heart rate achieved during study period was 121 which occurred at3 minutes and 8 seconds recovery. The baseline ECG demonstrated VPC's and ventricularbigeminy. Baseline rhythm probably sinus with diminutive P-waves. Ventricular bigeminy andSVT present at stress. Couplet VPCs and frequent complex ectopy present in recovery period.With stress, the ECG demonstrated <1mm beat to beat variability ST depression. The stress ECGwas negative for ischemia at heart rate achieved. REST IMAGES: Please see Nursing Notesfor additional information. LEFT VENTRICLE: Normal left ventricular chamber size.Normal left ventricular wall thickness. Calculated left ventricular ejection fraction 60 %.Abnormal ventricular septal motion - post-operative. No regional wall motion abnormalities.Indeterminate left ventricular diastolic function grade. RIGHT VENTRICLE: Moderate rightventricular enlargement. Normal right ventricular function. Estimated rightventricular systolic pressure 32 mmHg (systolic blood pressure 132 mmHg). ATRIA: Severe bi-atrialenlargement. CARDIAC VALVES: Status post [employer] mitral valve anuloplasty (15-OCT-2015).Mitral valve diastolic mean Doppler gradient 4 mmHg (heart rate 64 BPM). Trivialmitral valve regurgitation. Normal pulmonary valve. Trivial pulmonary valveregurgitation. Status post [employer] tricuspid valve anuloplasty (15-OCT-2015). Tricuspid valvediastolic mean Doppler gradient 2 mmHg (heart rate 79 BPM). Trivial tricuspid valveregurgitation. OTHER ECHO FINDINGS: No intracardiac mass or thrombus, but the left atrial appendagecannot be visualized adequately with transthoracic echo to exclude thrombus in this location.No pericardial effusion. Normal ascending aorta dimension. For the complete report, see the Order-Level Documents below. See PDF For Result us Jorge Ordaz M.D. CV ECHO PROCEDURES Final R esult * Toe-Outside Other (01/28/2019 12:00 PM CDT) Narrative IIIL - 01/31/2019 2:44 PM CDT This order has been created and auto-finalized to support the import of outside images. If available, original interpretation can be found on the Media Tab in Chart Review, in Document Viewer, or as an image in QREADS. If a re-interpretation or overread is required please follow defined workflow. us Provider Not In System IMG DIAGNOSTIC IMAGING [place] OCEDURES Final Result [facility] NA * Bacterial Culture, Aerobic + Susc, Resp (09/29/2018 4:09 PM DRY HOUSE ATTENDANT) Bacterial Culture, Aerobic, Resp Usual ade 09/30/2018 3:03 [address] [facility] Sputum (Sputum) 09/29/2018 4 :09 PM DRY HOUSE ATTENDANT 09/29/2018 7:11 PM DRY HOUSE ATTENDANT Comment:Specimen Source Site : Sputum Andreas Brooks M.D. LAB MICROBIOLOGY - GENERAL ORDERABLES Final Result [facility] [address] * DX Ribs Right 2 Views with Chest Posteroanterior 1 View (09/09/2018 4:12 PM CDT) Anatomical Region Laterality Modality Ribs, Chest, Musculoskeletal RST LOS, Musculoskeletal ARZ LOS, Muskuloskeletal FLA LOS Right Digital Radiography 09/09/2018 5:14 PM CDT Impressions 09/09/2018 5:17 PM CDT IMPRESSION: Minimally displaced fracture of the right seventh rib. No pneumothorax. No other change. No dense consolidation. No pleural effusion. Hyperinflation. Mild cardiomegaly. Pulmonary vascularity within normal limits. Sternotomy. Evidence of mitral valve annuloplasty. Calcified aorta. Localized nodularity in the right lower lobe unchanged dating back to 2005; this should be benign. No change since 06/09/2018. Narrative 09/09/2018 5:17 PM CDT EXAM: DX RIBS RIGHT 2 VIEWS WITH CHEST POSTEROANTERIOR 1 VIEW Procedure Note John Delacruz M.D. - 09/09/2018 EXAM: DX RIBS RIGHT 2 VIEWS WITH CHEST POSTEROANTERIOR 1 VIEW IMPRESSION: Minimally displaced fracture of the right seventh rib. No pneumothorax. No other change. No dense consolidation. No pleuraleffusion. Hyperinflation. Mild cardiomegaly. Pulmonary vascularity within normallimits. Sternotomy. Evidence of mitral valve annuloplasty. Calcified aorta.Localized nodularity in the right lower lobe unchanged dating back to 2004; thisshould be benign. No change since 06/09/2018. Ronaldo Lewis APRNNAzeb IMG DIAGNOSTIC IMAG ING PROCEDURES Final Result * Outside Photo (06/29/2018 12:00 PM CDT) Only the most recent of2 resultswithin the time period is included. Narrative [facility] - 09/10/2018 4:56 PM CDT This order has been created and auto-finalized to support the import of outside images. If available, original interpretation can be found on the Media Tab in Chart Review, in Document Viewer, or as an image in QREADS. If a re-interpretation or overread is required please follow defined workflow. Provider Not In System IMG NON RAD IMAGING PROCE DURES Final Result [facility] NA * OH BX SKIN/SUBQ TISS 1ST LESION (06/17/2018 11:15 AM CDT) Narrative [facility] - 06/17/2018 11:15 AM CDT Andreas Brooks M.D. 06/27/2018 9:26 PM Punch/Shave Biopsy Date/Time: 06/27/2018 9:20 PM Performed by: ANDREAS BROOKS Authorized by: ANDREAS BROOKS Consent: Consent obtained: Verbal Consent given by: Patient The benefits, risks and alternatives to the procedure and the potential need for sedation or anesthesia as well as the names, roles, and responsibilities of healthcare team members performing significant interventional tasks were discussed with the patient and/or decision maker.: Yes The benefits, risks and alternatives to the possible need for blood products were discussed with the patient and/or decision maker.: Not addressed Alderson protocol: All relevant documentation and testing were reviewed and available. All required blood products, implants, devices and/or special equipment were made available as applicable. The pre-procedure verification was conducted, the correct site was marked if required, and the procedural time out was conducted prior to performing the procedure and confirmed in a procedural pause.: Yes Pre-procedure details: Procedure purpose: Diagnostic Appropriate hand hygiene, gown, cap, mask, protective eyewear, sterile gloves, skin preparation, sterile drape, and strict aseptic technique were utilized as applicable for the procedure.: Yes Site preparation: Provodine / iodine Sedation/Anesthesia (see MAR for exact dosages): Anesthesia method: Local Local infiltrate: Lidocaine with epi Total anesthetic volume: 1.5 mL Procedure details: Type of biopsy: Punch Number of lesions: 1 Lesion Number 1: Location on body: Anterior trunk Anterior trunk: Left chest. Size of lesion: 1.4-1.6 cm Size of punch: 3 mm Wound closure / hemostasis: Wound closure Wound repair type: steri strips. Specimen sent for pathology: Yes Photo taken: No Post-procedure details: Estimated blood loss: Minimal Procedure completed successfully: Yes Complications: No apparent complications Tolerance: Well tolerated Andreas Brooks M.D. PROCEDURE/MINOR SURGICAL ORDERABLES Final Result [facility]AL NA * 25-Hydroxyvitamin D2 and D3 (06/09/2018 12:06 PM CDT) 25-Hydroxy D2 <4.0 ng/mL 06/11/2018 8:03 AM CDT [facility] 25-Hydroxy D3 26 ng/mL 06/11/2018 8:03 AM CDT [facility] 25-Hydroxy D Total 26 ng/mL 2017 8:03 AM T [facility] Comment: ----REFERENCE VALUE---- 25-HYDROXY D TOTAL (D2+D3) Optimum levels in the healthy population are 20-50, patients with bone disease may benefit from higher levels within this range. ----ADDITIONAL INFORMATION---- This test was developed and its performance characteristics determined by [facility] in a manner consistent with CLIA requirements. This test has not been cleared or approved by the U.S. Food and Drug Administration. Blood (Blood, Venous) 06/09/2018 12:06 PM CDT 06/10/2018 8:41 AM CDT Andreas Brooks M.D. LAB BLOOD ADD-ON Final Result [facility] [address] [place] [address] * DX Toes Right 3 Views (05/03/2018 3:38 PM CDT) Anatomical Region Laterality Modality Lower Extremity, Toes, Musculoskeletal RST LOS R ight Computed Radiography 05/03/2018 3:49 PM CDT Impressions 05/03/2018 3:51 PM CDT IMPRESSION: Obliquely oriented nondisplaced fracture involving the distal portion of the right second toe. Fracture plane extends near but not definitely to the right second toe DIP joint space. If there is evidence of nailbed injury this should be considered a potentially open fracture. Narrative 05/03/2018 3:51 PM CDT EXAM: DX TOES RIGHT 3 VIEWS COMPARISON: None FINDINGS: Mild soft tissue prominence right distal second toe. No radiopaque foreign bodies. Obliquely oriented nondisplaced fracture involving the distal portion of the right second toe. Fracture plane extends near but not definitely to the right second toe DIP joint space. If there is evidence of nailbed injury this should be considered a potentially open fracture. Marginal osteophytes along the right second toe DIP joint space. Procedure Note Oscar Latham M.D. - 05/03/2018 EXAM: DX TOES RIGHT 3 VIEWS COMPARISON: None FINDINGS: Mild soft tissue prominence right distal second toe. Noradiopaque foreign bodies. Obliquely oriented nondisplaced fracture involving the distal portion ofthe right second toe. Fracture plane extends near but not definitely to theright second toe DIP joint space. If there is evidence of nailbed injury thisshould be considered a potentially open fracture. Marginal osteophytes along the right second toe DIP joint space. IMPRESSION: Obliquely oriented nondisplaced fracture involving thedistal portion of the right second toe. Fracture plane extends near but notdefinitely to the right second toe DIP joint space. If there is evidence of nailbedinjury this should be considered a potentially open fracture. Jay Neves M.D. IMG DIAGNOSTIC IMAGING PROCEDURES Final Result * (ABNORMAL) Bacterial Culture, Aerobic + Susc, Urine Urine, Midstream (01/05/2018 8:18 AM DRY HOUSE ATTENDANT) Bacterial Culture, Aerobic, Urine ESCHERICHIA COLI >100,000 cfu/mL (A) 01/07/2018 8:06 [address] [facility] Urine (Urine, Midstream) 01/05/2018 8:18 AM DRY HOUSE ATTENDANT 01/05/2018 1:50 PM DRY HOUSE ATTENDANT Comment:Specimen Source Site : Urine Narrative Organism Antibiotic Method Susceptibility Escherichia coli Ampicillin SUSCEPTIBILITY, ADRYAN (MCG/ML) 8 mcg/mL: Susceptible Escherichia coli Ampicillin + Sulbactam SUSCEPTI BILITY, ADRYAN (MCG/ML) 4 mcg/mL: Susceptible Escherichia coli Piperacillin + Tazobactam SUSCE PTIBILITY, ADRYAN (MCG/ML) <=4 mcg/mL: Susceptible Escherichia coli Cefazolin SUSCEPTIBILITY, ADRYAN (MCG/ML) <=4 mcg/mL: Susceptible Escherichia coli Ceftazidime SUSCEPTIBILITY, ADRYAN (MCG/ML) <=1 mcg/mL: Susceptible Escherichia coli Ceftriaxone SUSCEPTIBILITY, ADRYAN (MCG/ML) <=1 mcg/mL: Susceptible Escherichia coli Cefepime SUSCEPTIBILITY, ADRYAN (MCG/ML) <=1 mcg/mL: Susceptible Escherichia coli Aztreonam SUSCEPTIBILITY, ADRYAN (MCG/ML) <=1 mcg/mL: Susceptible Escherichia coli Ertapenem SUSCEPTIBILITY, ADRYAN (MCG/ML) <=0.5 mcg/mL: Susceptible Escherichia coli Meropenem SUSCEPTIBILITY, ADRYAN (MCG/ML) <=0.25 mcg/mL: Susceptible Escherichia coli Gentamicin SUSCEPTIBILITY, ADRYAN (MCG/ML) <=1 mcg/mL: Susceptible Escherichia coli Tobramycin SUSCEPTIBILITY, ADRYAN (MCG/ML) <=1 mcg/mL: Susceptible Escherichia coli Levofloxacin SUSCEPTIBILITY, ADRYAN (MCG/ML) <=0.12 mcg/mL: Susceptible Escherichia coli Nitrofurantoin SUSCEPTIBILITY, ADRYAN (MCG/ML) 32 mcg/mL: Susceptible Escherichia coli Trimethoprim + Sulfamethoxazole SUSCEPTIBILITY, ADRYAN (MCG/ML) <=20 mcg/mL: Susceptible us Andreas Brooks M.D. LAB MICROBIOLOGY - GENERAL ORDERABLES Final Result [facility] [address] [place] [address], [place] * Obstetrics and Gynecology office visit (clinic) (10/05/2017 6:11 PM DRY HOUSE ATTENDANT) Kyung Valdovinos M.D. OUTPATIENT RETURN VIS ITS Final Result * [place] HYSTEROSCOPY DIAGNOSTIC (10/05/2017 9:15 AM DRY HOUSE ATTENDANT) Narrative MMODAL - 10/05/2017 9:15 AM DRY HOUSE ATTENDANT Kyung Valdovinos M.D. 10/05/2017 6:11 PM Hysteroscopy/Endometrial Ablation Date/Time: 10/05/2017 5:55 PM Performed by: Kyung Valdovinos Authorized by: Kyung Valdovinos Care team members present: Kyung Valdovinos MD, Fabiola Cunha RN Consent: Consent obtained: Written The benefits, risks and alternatives to the procedure and the potential need for sedation or anesthesia as well as the names, roles, and responsibilities of healthcare team members performing significant interventional tasks were discussed with the patient and/or decision maker.: yes The benefits, risks and alternatives to the possible need for blood products were discussed with the patient and/or decision maker.: Not addressed Alderson protocol: All relevant documentation and testing were reviewed and available. All required blood products, implants, devices and/or special equipment were made available as applicable. The pre-procedure verification was conducted, the correct site was marked if required, and the procedural time out was conducted prior to performing the procedure and confirmed in a procedural pause.: yes Pre-procedure details: Indication: other (specify) and postmenopausal bleeding Other indications: Abnormal pelvic ultrasound Appropriate hand hygiene, gown, cap, mask, protective eyewear, sterile gloves, skin preparation, sterile drape, and strict aseptic technique were utilized as applicable for the procedure.: yes Site preparation: Povidone-iodine Sedation/Anesthesia (see MAR for exact dosages): Anesthesia method: Local infiltration and nerve block Block type: paracervical block Block type comment: 2 cc at the 12 o'clock location, 4 cc at 4 and 8 o'clock location, 5 cc in posterior vaginal fonix in submucosal tissue, 5 cc intrauterine Procedure details: Procedure purpose: Diagnostic and therapeutic Operative procedures: other (specify) Other operative procedures: Endometrial biopsy with myosure under direct visualization with the hysteroscope Cervix dilated: yes Cervix sounded: No Tenaculum applied to cervix: yes Scope used: 5.6 mm operative Biopsy instrument: Other (specify) Other biopsy instrument(s): Myosure morcellator Specimen collected: specimen collected Tubal ostia visualized: Left and right Cavity appearance: Atrophic, arcuate and other (specify) Other cavity appearance: Erythematous endometrium Endometrial appearance: atrophic Lesions: no Vagina: Normal Cervix: Normal Uterus: Normal Uterus size: Normal Specimen sent to Pathology: Yes Post-procedure details: Procedure completed successfully: yes Complications: no apparent complications Comments: Endometrial cavity appeared heart-shaped. Endometrium appeared this and atrophic, but erythematous and fragile. No specific lesions were noted. Due to the postmenopausal bleeding and erythematous appearance, the endometrium was sampled throughout. us Kyung Valdovinos M.D. OB GYNE ORDERABLES Fi nal Result [facility]ODAL NA * (TTE) 2D LIMITED WITH COLOR AND LIMITED DOPPLER (09/23/2017 1:10 PM DRY HOUSE ATTENDANT) Ejection Fraction 54 MC CV EIMS LV Mass Index 115 MC CV EIMS LV End-Diastolic Diameter 52 MC CV EIMS LV End-Systolic Diameter 38 MC CV EIMS LV End-Diastolic Volume 99 MC CV EIMS LV End-Systolic Volume 46 MC CV EIMS Left ventricular stroke volume index 44 MC CV EIMS Cardiac Output 6.52 MC CV EIMS Cardiac Index 3.40 MC CV EIMS LV Interventricular Septal Wall Thickness 11 MC CV EIMS LV Posterior Wall Thickness 11 MC CV EIMS LV Relative Wall Thickness 42 MC CV EIMS Tricuspid Annular S 0.12 MC CV EIMS TR Vmax 2.50 MC CV EIMS Estimated RA Pressure (Echo RAP) 10 MC CV EIMS RV Systolic Pressure (with Echo RAP) 35 MC CV EIMS MV mean gradient 5 MC CV EIMS Anatomical Region Laterality Modality Echocardiography 09/23/2017 12:2 7 PM DRY HOUSE ATTENDANT Narrative 09/23/2017 2:42 PM DRY HOUSE ATTENDANT See PDF For Result Procedure Note Jorge Ordaz M.D. - 07/08/2018 See PDF For Result us Jorge Ordaz M.D. CV ECHO PROCEDURES Edited Result - Final * US Pelvis Transvaginal and Transabdominal (07/23/2017 9:26 AM CDT) Only the most recent of5 resultswithin the time period is included. Anatomical Region Laterality Modality Pelvis N/A Ultrasound 07/23/2017 9:26 AM CDT Addenda Addendum by Butch Samuel M.D. on 07/23/2017 9:26 AM CDT RAD^^^OW US Pelvic And Endovaginal 07/23/2017 09:26:22 US Pelvic And Endovaginal Addendum by Butch Samuel M.D. on 07/23/2017 9:26 AM CDT RAD^^^OW US Pelvic And Endovaginal 07/23/2017 09:26:22 US Pelvic And Endovaginal Impressions 07/23/2017 10:37 AM CDT 1. New 0.6 cm endometrial cyst. 2. Right ovary not seen. 3. Left oophorectomy. Narrative 07/23/2017 10:37 AM CDT EXAM: US Pelvic And Endovaginal INDICATION: post menopausal bleeding AGE: 72 years-old COMPARISON: 06/12/11 FINDINGS: Uterus: Retroverted. Normal size at 4.5 x 1.8 x 2.9 cm. No uterine fibroids. Nabothian cyst. Endometrium: Normal thickness at 2 mm. Within the endometrial canal of the uterine body, there is new 0.6 x 0.3 x 0.4 cm cyst. Pelvic free fluid: none. Right adnexa: Right ovary is not seen and is presumably obscured by bowel gas. Left adnexa: Left oophorectomy. Bladder: Negative. Procedure Note Beni Vale M.D. / ProviderButch M.D. - 08/20/2017 EXAM: US Pelvic And Endovaginal INDICATION: post menopausal bleeding AGE: 72 years-old COMPARISON: 06/12/11 FINDINGS: Uterus: Retroverted. Normal size at 4.5 x 1.8 x 2.9 cm. No uterine fibroids. Nabothian cyst. Endometrium: Normal thickness at 2 mm. Within the endometrial canal of the uterine body, there is new 0.6 x 0.3 x 0.4 cm cyst. Pelvic free fluid: none. Right adnexa: Right ovary is not seen and is presumably obscured by bowel gas. Left adnexa: Left oophorectomy. Bladder: Negative. IMPRESSION: 1. New 0.6 cm endometrial cyst. 2. Right ovary not seen. 3. Left oophorectomy. us Augustine Morris Jr., RShant.M.S. [facility] [place]U RES Edited Result - Final * BI Breast Screening Bilateral (07/15/2017 8:51 AM CDT) Only the most recent of4 resultswithin the time period is included. Anatomical Region Laterality Modality Breast Bilateral Mammography 07/15/2017 8:51 AM CDT Addenda Addendum by ProviderButch M.D. on 07/15/2017 8:51 AM CDT RAD^^^OW MA Mammo Screening w CADD 07/15/2017 08:51:39 MA Mammo Screening w CADD Addendum by ProviderButch M.D. on 07/15/2017 8:51 AM CDT RAD^^^OW MA Mammo Screening w CADD 07/15/2017 08:51:39 MA Mammo Screening w CADD Impressions 07/15/2017 10:09 AM CDT No mammographic findings for malignancy in either breast. Recommendations: I recommend a follow-up mammogram in 1 year, self breast exams at least once per month and clinical breast exam at least once per year. Of note, benign findings should not deter biopsy in the setting of a palpable abnormality. The false negative rate of mammography is approximately 10%. CODE: 1-NEGATIVE Appropriate letter sent. Full field digital mammography is used and Computer Aided Detection is performed on the digital mammogram images. Narrative 07/15/2017 10:09 AM CDT EXAM: MA Mammo Screening w/ CADD INDICATION: screening COMPARISON: 05/21/2016, 08/07/2011, 06/13/2009, 04/20/2008. FINDINGS: Heterogeneously dense breast parenchyma bilaterally. Breast density diminishes mammographic sensitivity for detection of malignancy. Procedure Note Oscar Latham M.D. / Butch Samuel M.D. - 08/20/2017 EXAM: MA Mammo Screening w/ CADD INDICATION: screening COMPARISON: 05/21/2016, 08/07/2011, 06/13/2009, 04/20/2008. FINDINGS: Heterogeneously dense breast parenchyma bilaterally. Breast density diminishes mammographic sensitivity for detection of malignancy. IMPRESSION: No mammographic findings for malignancy in either breast. Recommendations: I recommend a follow-up mammogram in 1 year, self breast exams at least once per month and clinical breast exam at least once per year. Of note, benign findings should not deter biopsy in the setting of a palpable abnormality. The false negative rate of mammography is approximately 10%. CODE: 1-NEGATIVE Appropriate letter sent. Full field digital mammography is used and Computer Aided Detection is performed on the digital mammogram images. us Jazmín Capps(R), RTatyana(R)(M) IMG BI P ROCEDURES Edited Result - Final * DX Elbow Left 2 Views (07/09/2017 4:14 PM CDT) Anatomical Region Laterality Modality Upper Extremity, Elbow Left Radiograp hic Imaging 07/09/2017 4:14 PM CDT Addenda Addendum by Butch Samuel M.D. on 07/09/2017 4:14 PM CDT RAD^^^OW XR Elbow Left 2 views 07/09/2017 16:14:23 XR Elbow Left 2 views Addendum by Butch Samuel M.D. on 07/09/2017 4:14 PM CDT RAD^^^OW XR Elbow Left 2 views 07/09/2017 16:14:23 XR Elbow Left 2 views Impressions 07/09/2017 4:39 PM CDT Degenerative changes left elbow, no appreciable acute osseous injury. Narrative 07/09/2017 4:39 PM CDT EXAM: XR Elbow Left 2 views. DEMOGRAPHICS: 72 years Female. INDICATION: elbow pain. No reported recent trauma. COMPARISON: None FINDINGS: Moderately prominent hypertrophic spurring along the peripheral margin of the right sublime tubercle. No appreciable acute osseous injury of the left elbow. Probable mild osteopenia. No radio opaque foreign bodies. No appreciable osseous cartilaginous loose bodies. Procedure Note Oscar Latham M.D. / Butch Samuel M.D. - 08/21/2017 EXAM: XR Elbow Left 2 views. DEMOGRAPHICS: 72 years Female. INDICATION: elbow pain. No reported recent trauma. COMPARISON: None FINDINGS: Moderately prominent hypertrophic spurring along the peripheral margin of the right sublime tubercle. No appreciable acute osseous injury of the left elbow. Probable mild osteopenia. No radio opaque foreign bodies. No appreciable osseous cartilaginous loose bodies. IMPRESSION: Degenerative changes left elbow, no appreciable acute osseous injury. Beth rCawford R.T.(R), R.T.(R)(M) IMG DIAGNOSTIC IMAGING PROCEDURES Edited Result - Final * HX LABORATORY - SCANNED (06/02/2017 12:00 AM CDT) Only the most recent of2 resultswithin the time period is included. Hx Laboratory-Scan roly [facility] 06/02/2017 Historical Provider LAB HISTORICAL ORDERS Final Result [facility] * ECG Event Recorder (05/18/2017 9:53 AM CDT) Only the most recent of5 resultswithin the time period is included. 05/18/2017 9:53 AM CDT Historical Provider CV CARDIAC SERVICES PROCEDUR ES Final Result HISTORICAL [facility] IMAGING CONVERSION * Hemoglobin (04/08/2017 9:22 AM CDT) Hemoglobin 13.7 12.0 - 15.5 GDL POWERCHART Blood 04/08/2017 9:22 AM CDT Jorge Ordaz M.D. LAB BLOOD ADD-ON Final Res ult POWERCHART * Digoxin Level (04/08/2017 9:22 AM CDT) Digoxin, S 0.6 0.5 - 2.0 NGML POWERCHART Comment: Pediatric toxic concentration may be higher. Reference values have not been established for patients that are < 16 years of age. Biotin has been identified by the range operator as a potential interfering substance. Higher concentrations of biotin may be found in multivitamins, hair/nail supplements, and workout supplements. If the result does not match clinical observations, repeat testing after patient refrains from the use of supplements for at least 12 hours. Blood 04/08/2017 9:22 AM CDT Result [facility] Jorge Ordaz M.D. LAB BLOOD ADD-ON Final Res ult Performing Organization Address City/[facility]/ZIP Co de Phone Number POWERCHART * ECHOCARDIOLOGY IMAGE EXAM (02/25/2017 11:24 AM CDT) Only the most recent of13 resultswithin the time period is included. Anatomical Region Laterality Modality Other 02/25/2017 11:2 4 AM CDT Addenda Addendum by ProviderButch M.D. on 02/25/2017 11:24 AM CDT ECHO^^^MCR OUTREACH 02/25/2017 11:24:00 Result [facility] Historical Provider IMG NON RAD IMAGING PROCEDUR ES Final Result * Echo Transthoracic (TTE) (02/25/2017 10:17 AM CDT) Anatomical Region Laterality Modality Echocardiography 02/25/2017 10:1 7 AM CDT Result [facility] Historical Provider CV ECHO PROCEDURES Final Res ult * Echo Transthoracic (TTE) (09/17/2016 10:52 AM CDT) Anatomical Region Laterality Modality Echocardiography 09/17/2016 10:5 2 AM CDT Historical Provider CV ECHO PROCEDURES Final Res ult * Lyme Disease Serology, Serum (07/15/2016 4:28 PM CDT) Pathologist [facility] Lyme Disease Serology, S Negative Negative POWERCHART Comment: Serologic response to B. burgdorferi infection is not detected, but cannot rule out early infection during which low or undetectable antibody levels to B. burgdorferi may be present. If clinically indicated, a new serum specimen should be submitted in 7-14 days. Test Performed by: [place] [address] Communications Operator: Ollie Carbajal II, M.D., Ph.D. Blood 07/15/2016 4:28 PM CDT Travis Waggoner M.D. LAB MICROBIOLOGY - BLOOD ORDER BOO Final Result Performing Organization Address [facility] Co de Phone Number POWERCHART * (ABNORMAL) Automated Differential (06/04/2016 2:47 PM CDT) Only the most recent of7 resultswithin the time period is included. [facility] Absolute Neutrophils 2.85 1.70 - 7.00 109L POWERCHART Lymphocytes 0.81(L) 0.90 - 2.90 X109L POWERCHART Monocytes 0.52 0.30 - 0.90 X109L POWERCHART Eosinophils 0.19 0.05 - 0.50 X109L POWERCHART Absolute Basophil 0.02 0.00 - 0.30 X109L POWERCHART Blood 06/04/2016 2:47 PM CDT 06/04/2016 2:47 PM CDT Beni Turpin M.D. LAB BLOOD ADD-ON Final Res ult Performing Organization Address City/[facility]/ZIP Co de Phone Number POWERCHART * (ABNORMAL) NT-Pro B-Type Natriuretic Peptide (BNP) (06/04/2016 2:47 PM CDT) Only the most recent of5 resultswithin the time period is included. [facility] B-Type Natriuretic Peptide (BNP) 299(H) 10 - 222 PGML POWERCHART Comment: NT-proBNP values less than 300 pg/mL have a 99% negative predictive value for excluding acute congestive heart failure. A cutoff of 1200 pg/mL for patients with an eGFR<60 yields a diagnostic sensitivity and specificity of 89% and 72% for acute congestive heart failure. Adults <50 years: NT-proBNP values greater than 450 pg/mL are consistent with CHF. Adults 50-75 years: A diagnostic NT-proBNP cutoff of 900 pg/mL has been suggested in the absence of renal failure. Adults >75 years: A diagnostic NT-proBNP cutoff of 1800 pg/mL has been suggested in the absence of renal failure. Blood 06/04/2016 2:47 PM CDT Beni Turpin M.D. LAB BLOOD ADD-ON Final Res ult Performing Organization Address City/[facility] Co de Phone Number POWERCHART * Echo Transthoracic (TTE) (03/05/2016 11:01 AM CDT) Anatomical Region Laterality Modality Echocardiography 03/05/2016 11:0 1 AM CDT Historical Provider CV ECHO PROCEDURES Final Res ult * Protime/INR, POCT (01/23/2016 12:32 PM DRY HOUSE ATTENDANT) Only the most recent of11 resultswithin the time period is included. INR, POCT, B 1.2 POWERCHART 01/23/2016 12:3 2 PM DRY HOUSE ATTENDANT Beni Turpin M.D. LAB POCT ORDERABLES - MAYUR CE Edited Result - Final Performing Organization Address City/[facility] Co de Phone Number POWERCHART * Echo Transesophageal (ANISH) (11/23/2015 12:35 PM DRY HOUSE ATTENDANT) Anatomical Region Laterality Modality Echocardiography 11/23/2015 12:3 5 PM DRY HOUSE ATTENDANT Hina Neves CV ECHO PROCEDURES Brii l Result * Electrolyte (Chem 4) Panel (11/23/2015 5:21 AM DRY HOUSE ATTENDANT) Only the most recent of11 resultswithin the time period is included. Sodium, S 139 135 - 145 MMOL/L [facility] Comment:Drawn Above IV Potassium, S 4.4 3.6 - 5.2 MMOL/L [facility] Comment:Drawn Above IV Creatinine 0.9 0.6 - 1.1 MG/DL [facility] Comment:Drawn Above IV eGFR Non-Black/Afric an Barbadian >60 >60 ML/MIN/BSA [facility] Comment:Drawn Above IV eGFR-Black/Afri can Barbadian >60 >60 ML/MIN/BSA [facility] Comment:Drawn Above IV BUN (Blood Urea Nitrogen), S 11 6 - 21 MG/DL [facility] Comment:Drawn Above IV Chloride, S 103 98 - 107 MMOL/L [facility] Comment:Drawn Above IV HX Bicarbonate, P/S 24 22 - 29 MMOL/L [facility] Comment:Drawn Above IV Anion Gap 12 7 - 15 [facility] Comment:Drawn Above IV Glucose, S 101 70 - 140 MG/DL [facility] Comment:Drawn Above IV 11/23/2015 5:21 AM DRY HOUSE ATTENDANT 11/23/2015 5:21 AM DRY HOUSE ATTENDANT Narrative [facility] - 11/23/2015 6:17 AM DRY HOUSE ATTENDANT Drawn Above IV Ap Rodríguez APRN RJuan AlbertoN. LAB BLOOD ADD-ON Fin al Result [facility] [address] * (ABNORMAL) APTT (Activated Partial Thromboplastin Time) (11/23/2015 5:21 AM DRY HOUSE ATTENDANT) Only the most recent of15 resultswithin the time period is included. APTT, P 58(H) 28 - 38 SEC [facility] Comment:Drawn Above IV 11/23/2015 5:21 AM DRY HOUSE ATTENDANT 11/23/2015 5:21 AM DRY HOUSE ATTENDANT Narrative [facility] - 11/23/2015 6:05 AM DRY HOUSE ATTENDANT Drawn Above IV Ap Rodríguez APRN, R.N. LAB BLOOD ADD-ON Fin al Result Performing Organization Address City/[facility] Co de Phone Number [facility] [address] * (ABNORMAL) PT (Prothrombin Time) with INR (11/23/2015 5:21 AM DRY HOUSE ATTENDANT) Only the most recent of16 resultswithin the time period is included. Prothrombin Time, P 18.4(H) 9.5 - 13.8 SEC [facility] Comment:Drawn Above IV INR 1.6 0.8 - 1.2 [facility] [place] Comment:Drawn Above IV 11/23/2015 5:21 AM DRY HOUSE ATTENDANT 11/23/2015 5:21 AM DRY HOUSE ATTENDANT Narrative [facility] - 11/23/2015 6:05 AM DRY HOUSE ATTENDANT Drawn Above IV us Ap Rodríguez APRN, R.N. LAB BLOOD ADD-ON Fin al Result Performing Organization Address [facility] Co de Phone Number [facility] [address] * ALT (Alanine Aminotransferase) (11/22/2015 6:38 AM DRY HOUSE ATTENDANT) Alanine Aminotransferase (ALT), S 19 7 - 45 U/L [facility] 11/22/2015 6:38 AM DRY HOUSE ATTENDANT 11/22/2015 6:38 AM DRY HOUSE ATTENDANT Ap Rodríguez APRN, R.N. LAB BLOOD ADD-ON Fin al Result Performing Organization Address City/[facility] Co de Phone Number [facility] [address] * AST (Aspartate Aminotransferase) (11/22/2015 6:38 AM DRY HOUSE ATTENDANT) AST, Total, S 23 8 - 43 U/L [facility] 11/22/2015 6:38 AM DRY HOUSE ATTENDANT 11/22/2015 6:38 AM DRY HOUSE ATTENDANT Ap Rodríguez APRN, R.N. LAB BLOOD ADD-ON Fin al Result Performing Organization Address City/[facility] Co de Phone Number [facility] [address] * Bilirubin, Direct (11/22/2015 6:38 AM DRY HOUSE ATTENDANT) Bilirubin, Direct, S 0.1 0.0 - 0.3 MG/DL [facility] 11/22/2015 6:38 AM DRY HOUSE ATTENDANT 11/22/2015 6:38 AM DRY HOUSE ATTENDANT Ap Rodríguez APRN, R.N. LAB BLOOD ADD-ON Fin al Result Performing Organization Address [facility] de Phone Number [facility] [address] * Bilirubin, Total (11/22/2015 6:38 AM DRY HOUSE ATTENDANT) Bilirubin, Total, S 0.4 <=1.2 MG/DL [facility] 11/22/2015 6:38 AM DRY HOUSE ATTENDANT 11/22/2015 6:38 AM DRY HOUSE ATTENDANT Ap Rodríguez APRN, R.N. LAB BLOOD ADD-ON Fin al Result Performing Organization Address City/[facility] Co de Phone Number [facility] [address] * Echo Transthoracic (TTE) (11/21/2015 8:34 AM DRY HOUSE ATTENDANT) Anatomical Region Laterality Modality Echocardiography 11/21/2015 8:34 AM DRY HOUSE ATTENDANT Tommie Harris M.D. CV ECHO PROCEDURES Final Result * Cardiac Biomarker Panel (11/21/2015 2:35 AM DRY HOUSE ATTENDANT) Delta Interp Not Sig [facility] Comment:No significant delta observed. Troponin Delta 0.00 NG/ML [facility] Troponin T 6H, S <0.01 <0.01 NG/ML [facility] Delta Interp Not Sig [facility] Comment:No significant delta observed. Troponin T, S <0.01 <0.01 NG/ML [facility] Troponin T 3H, S <0.01 <0.01 NG/ML [facility] Troponin Delta 0.00 NG/ML [facility] 11/21/2015 2:35 AM DRY HOUSE ATTENDANT 11/21/2015 2:35 AM DRY HOUSE ATTENDANT Carlos Hair APRN, C.N.P. LAB BLOOD ADD-ON Final Result Performing Organization Address [facility] Co de Phone Number [facility] [address] * Procalcitonin (11/21/2015 2:35 AM DRY HOUSE ATTENDANT) Procalcitonin, S <0.10 <=0.15 NG/ML [facility] 11/21/2015 2:35 AM DRY HOUSE ATTENDANT 11/21/2015 2:35 AM DRY HOUSE ATTENDANT Carlos Hair APRN, C.N.P. LAB BLOOD ADD-ON Final Result Performing Organization Address [facility] Co de Phone Number [facility] [address] * CT Chest Angiogram and Pulmonary Arteries with IV Contrast (11/20/2015 9:22 PM DRY HOUSE ATTENDANT) Anatomical Region Laterality Modality Cardiac N/A Computed Tomogra phy 11/20/2015 9:22 PM DRY HOUSE ATTENDANT Impressions 11/20/2015 10:09 PM DRY HOUSE ATTENDANT 1. Negative for acute pulmonary embolism. 2. Ill-defined consolidation in the right lower lobe, suggestive of an infectious or inflammatory process. 3. Small right pleural effusion. FINDINGS: Negative for acute pulmonary embolism. Ill-defined consolidation in the right lower lobe. Small right pleural effusion. Trace left pleural fluid. Scattered pulmonary atelectasis and/or scarring. Mild interlobular septal thickening in the lung apices. Calcified pulmonary granulomas. Mediastinal lymphadenopathy with the largest right lower paratracheal lymph node measuring approximately 13 x 13 mm on (series 5, image 122). Marked cardiomegaly with biatrial enlargement. Sternotomy. Mitral and tricuspid annuloplasties. Presumed hepatic cysts and/or hemangiomas. Incidentally noted, proximally 3 cm left renal AML. Electronically signed by: Haresh Rothman M.D. [id number] 20-Nov-2015 22:09 C Luisito JUNG [id number] 20-Nov-2015 22:09 Narrative 11/20/2015 10:09 PM DRY HOUSE ATTENDANT 20-Nov-2015 21:22:00 Exam: CTA Chest PE Indications: ed west 8/sinus tach, ? pe ORIGINAL REPORT - 20-Nov-2015 22:09:00 EXAM: Chest CT Angiography with IV contrast enhancement using pulmonary embolism protocol, including 3D image post processing COMPARISON: None available Procedure Note Yimi Rothman M.D. - 02/11/2018 20-Nov-2015 21:22:00 Exam: CTA Chest PE Indications: ed west 8/sinus tach, ? pe ORIGINAL REPORT - 20-Nov-2015 22:09:00 EXAM: Chest CT Angiography with IV contrast enhancement using pulmonary embolism protocol, including 3D image post processing COMPARISON: None available IMPRESSION: 1. Negative for acute pulmonary embolism. 2. Ill-defined consolidation in the right lower lobe, suggestive of aninfectious or inflammatory process. 3. Small right pleural effusion. FINDINGS: Negative for acute pulmonary embolism. Ill-defined consolidation in the right lower lobe. Small right pleuraleffusion. Trace left pleural fluid. Scattered pulmonary atelectasis and/orscarring. Mild interlobular septal thickening in the lung apices.Calcified pulmonary granulomas. Mediastinal lymphadenopathy with thelargest right lower paratracheal lymph node measuring approximately 13 x13 mm on (series 5, image 122). Marked cardiomegaly with biatrial enlargement. Sternotomy. Mitral andtricuspid annuloplasties. Presumed hepatic cysts and/or hemangiomas. Incidentally noted, proximally3 cm left renal AML. Electronically signed by: Haresh Rothman M.D. [id number] 20-Nov-2015 22:09 C Luisito JUNG [id number] 22:09 us Mirna Sumner M.D. IMG CT PROCEDURES Final Re sult * Gram Stain, Confirmatory, Urine (11/20/2015 7:11 PM DRY HOUSE ATTENDANT) Grams Stain, Confirmatory, Urine Negative [facility] 11/20/2015 7:11 PM DRY HOUSE ATTENDANT 11/20/2015 7:11 PM DRY HOUSE ATTENDANT Mirna Sumner M.D. LAB URINE ORDERABLES Final Result [facility] [address] * (ABNORMAL) Urinalysis with Microscopic (11/20/2015 7:11 PM DRY HOUSE ATTENDANT) Only the most recent of3 resultswithin the time period is included. Glucose 3 0 - 15 MG/DL [facility] Protein, U 6 <22 MG/DL [facility] Comment: ADDITIONAL INFORMATION On 05/29/2014 the total protein assay method changed resulting in approximately a 20% increase in protein values. pH, 24 HR, U 6.4 4.5 - 8.0 [facility] Protein/Osmolali ty 0.28(H) <0.27 RATIO [facility] Comment: ADDITIONAL INFORMATION On 05/29/2014 the total protein assay method changed resulting in approximately a 20% increase in protein values. Predicted 24 Hr Protein 214 MG/24 H [facility] Predicted Range 53-865 MG/24 H [facility] Source Midstream [facility] Appearance Normal Normal [facility] Hemoglobin, QL Negative Negative [facility] Osmolality, 24 HR, U 211 150 - 1150 MOSM/KG [facility] 11/20/2015 7:11 PM DRY HOUSE ATTENDANT 11/20/2015 7:11 PM DRY HOUSE ATTENDANT us Mirna Sumner M.D. LAB URINE ORDERABLES Final Result Performing Organization Address City/[facility]/ZIP Co de Phone Number [facility] [address] * pH (11/20/2015 5:28 PM DRY HOUSE ATTENDANT) Only the most recent of2 resultswithin the time period is included. pH 7.41 7.35 - 7.45 PH [facility] 11/20/2015 5:28 PM DRY HOUSE ATTENDANT 11/20/2015 5:28 PM DRY HOUSE ATTENDANT us Mirna Sumner M.D. LAB HISTORICAL ORDERS Brii l Result Performing Organization Address [facility] Co de Phone Number [facility] [address] * Calcium, Ionized (11/20/2015 5:28 PM DRY HOUSE ATTENDANT) Only the most recent of6 resultswithin the time period is included. Calcium, Ionized, B 4.83 4.65 - 5.30 MG/DL [facility] 11/20/2015 5:28 PM DRY HOUSE ATTENDANT 11/20/2015 5:28 PM DRY HOUSE ATTENDANT us Mirna Sumner M.D. LAB BLOOD NON ADD-ON Final Result Performing Organization Address City/[facility]/ZIP Co de Phone Number [facility] [address] * Lactate, POCT (11/20/2015 5:20 PM DRY HOUSE ATTENDANT) Lactate, POCT 0.68 0.60 - 2.30 MMOL/L [facility] Sample Site, POCT Venstick [facility] 11/20/2015 5:20 PM DRY HOUSE ATTENDANT 11/20/2015 5:20 PM DRY HOUSE ATTENDANT [facility] Provider LAB POCT ORDERABLES - DEVICE Final Result Performing Organization Address [facility] de Phone Number [facility] [address] * Echo Transthoracic (TTE) (10/22/2015 12:59 PM DRY HOUSE ATTENDANT) Anatomical Region Laterality Modality Echocardiography 10/22/2015 12:5 9 PM DRY HOUSE ATTENDANT Connor Ramos M.D., Ph.D. CV ECHO PROCEDURES Brii l Result * Glucose, POCT (10/17/2015 12:17 PM DRY HOUSE ATTENDANT) Only the most recent of28 resultswithin the time period is included. Glucose, POCT, B 106 70 - 140 MG/DL [facility] Last Intake 3-4 hours [facility] 10/17/2015 12:1 7 PM DRY HOUSE ATTENDANT 10/17/2015 12:17 PM DRY HOUSE ATTENDANT [facility] Provider LAB POCT ORDERABLES-MANUAL F inal Result Performing Organization Address [facility] de Phone Number [facility] [address] * Electrolyte Panel with Creatinine Juno (10/17/2015 3:57 AM DRY HOUSE ATTENDANT) Only the most recent of3 resultswithin the time period is included. Sodium, P 140 135 - 145 MMOL/L [facility] Potassium, P 4.0 3.6 - 5.2 MMOL/L [facility] Glucose, S 122 70 - 140 MG/DL [facility] Anion Gap 10 7 - 15 [facility] Chloride, S 103 98 - 107 MMOL/L [facility] BUN (Blood Urea Nitrogen), S 19 6 - 21 MG/DL [facility] HX Bicarbonate, P/S 27 22 - 29 MMOL/L [facility] Creatinine, Juno 0.6 0.5 - 0.9 MG/DL [facility] 10/17/2015 3:57 AM DRY HOUSE ATTENDANT 10/17/2015 3:57 AM DRY HOUSE ATTENDANT Guanakito Souza P.A.-C., M.S. LAB BLOOD ADD-ON Fin al Result [facility] [address] [place] [address], [place] * DX Chest Portable 1 View (10/16/2015 5:18 AM DRY HOUSE ATTENDANT) Only the most recent of2 resultswithin the time period is included. Anatomical Region Laterality Modality Chest N/A Radiographic Velia ging 10/16/2015 5:18 AM DRY HOUSE ATTENDANT Impressions 10/16/2015 5:54 AM DRY HOUSE ATTENDANT ET tube has been removed since yesterday. Mediastinal drain. [place]view-Natty catheter in the MPA. Mitral annuloplasty. Epicardial pacer wires. Cardiomegaly. Small left pleural effusion. Right pleural space is clear. Pulmonary venous hypertension. Stable consolidation in the left lower lobe. Electronically signed by: Aimee Navas [id number] 16-Oct-2015 05:54 Narrative 10/16/2015 5:54 AM DRY HOUSE ATTENDANT 16-Oct-2015 05:18:00 Exam: Portable-Chest Indications: s/p cardiac surgery ORIGINAL REPORT - 16-Oct-2015 05:54:00 EXAM: Chest; 1 view: Procedure Note Aimee Navas M.B., Ch.B. - 02/11/2018 16-Oct-2015 05:18:00 Exam: Portable-Chest Indications: s/p cardiac surgery ORIGINAL REPORT - 16-Oct-2015 05:54:00 EXAM: Chest; 1 view: IMPRESSION: ET tube has been removed since yesterday. Mediastinal drain.[place]- Natty catheter in the MPA. Mitral annuloplasty. Epicardial pacerwires. Cardiomegaly. Small left pleural effusion. Right pleural space isclear. Pulmonary venous hypertension. Stable consolidation in the leftlower lobe. Electronically signed by: Aimee Navas [id number] 16-Oct-2015 05:54 Barbara Mujica APRN, Jailyn.N.P. IMG DIAGNOSTIC IM AGING PROCEDURES Final Result * (ABNORMAL) Blood Gas with Coox, Arterial (10/16/2015 3:22 AM DRY HOUSE ATTENDANT) Only the most recent of10 resultswithin the time period is included. Arterial Sample Site Art Line [facility] O2 Flow 2.0 L/MIN [facility] [place] pCO2 44 35 - 45 MM HG [facility] pH 7.38 7.35 - 7.45 PH [facility] Base Excess 1 -2 - 2 MMOL/L [facility] HCO3 25 22 - 26 MMOL/L [facility] COHb 1.7 <3.0 % [facility] [place] MetHb 1.3 <1.6 % [facility] Device NC [facility] [place] pO2 89 80 - 100 MM HG [facility] Hb 9.6(L) 12.0 - 15.5 G/DL [facility] O2Hb 94.3 94.0 - 98.0 % [facility] CtO2 12.8(L) 21.0 - 23.0 VOL % [facility] 10/16/2015 3:22 AM DRY HOUSE ATTENDANT 10/16/2015 3:22 AM DRY HOUSE ATTENDANT Barbara Mujica APRN, C.N.P. LAB BLOOD NON ADD -ON Final Result [facility] [address] * (ABNORMAL) Lactate (10/16/2015 12:29 AM DRY HOUSE ATTENDANT) Only the most recent of7 resultswithin the time period is included. Lactate, P 3.8(H) 0.6 - 2.3 MMOL/L [facility] 10/16/2015 12:2 9 AM DRY HOUSE ATTENDANT 10/16/2015 12:29 AM DRY HOUSE ATTENDANT Guanakito Souza P.A.-C., M.S. LAB BLOOD NON ADD-ON Final Result Performing Organization Address City/[facility]/ZIP Co de Phone Number [facility] [address] * Potassium, Blood (10/15/2015 10:24 PM DRY HOUSE ATTENDANT) Only the most recent of7 resultswithin the time period is included. Potassium, B 4.3 3.6 - 5.2 MMOL/L [facility] 10/15/2015 10:2 4 PM DRY HOUSE ATTENDANT 10/15/2015 10:24 PM DRY HOUSE ATTENDANT Guanakito Souza P.A.-C., M.S. LAB BLOOD NON ADD-ON Final Result Performing Organization Address [facility] Co de Phone Number [facility] [address] * (ABNORMAL) Fibrinogen (10/15/2015 3:30 PM DRY HOUSE ATTENDANT) Only the most recent of3 resultswithin the time period is included. Fibrinogen, P 187(L) 200 - 430 MG/DL [facility] 10/15/2015 3:30 PM DRY HOUSE ATTENDANT 10/15/2015 3:30 PM DRY HOUSE ATTENDANT Connor Ramos M.D., Ph.D. LAB BLOOD ADD-ON Final Result Performing Organization Address City/[facility] Co de Phone Number [facility] [address] * Thromboelastograph, Kaolin, Blood (10/15/2015 3:29 PM DRY HOUSE ATTENDANT) Only the most recent of2 resultswithin the time period is included. [facility] R + K 7.2 4.9 - 10.8 MIN [facility] Angle 67.1 66.2 - 80.3 DEGREES [facility] R Time 5.5 4.0 - 9.0 MIN [facility] K Time 1.7 0.9 - 1.7 MIN [facility] Maximum Amplitude 65.5 55.2 - 77.0 MM [facility] Ly30 0.0 0.0 - 4.8 % [facility] 10/15/2015 3:29 PM DRY HOUSE ATTENDANT 10/15/2015 3:29 PM DRY HOUSE ATTENDANT Connor Ramos M.D., Ph.D. LAB BLOOD NON ADD-ON Fi nal Result Performing Organization Address City/[facility] Co de Phone Number [facility] [address] * (ABNORMAL) Glucose, Whole Blood (10/15/2015 2:25 PM DRY HOUSE ATTENDANT) Only the most recent of4 resultswithin the time period is included. [facility] Glucose, S 186(H) 70 - 140 MG/DL [facility] Comment:Drawn in [place] 10/15/2015 2:25 PM DRY HOUSE ATTENDANT 10/15/2015 2:25 PM DRY HOUSE ATTENDANT Narrative [facility] - 10/15/2015 2:29 PM DRY HOUSE ATTENDANT Drawn in [place] Historical Provider LAB BLOOD ADD-ON Final Resul t Performing Organization Address City/[facility] Co de Phone Number [facility] [address] * (ABNORMAL) Platelet Count (10/15/2015 2:25 PM DRY HOUSE ATTENDANT) Only the most recent of2 resultswithin the time period is included. [facility] HX Platelet Count 129(L) 150 - 450 X10(9)/L [facility] Comment:Drawn in [place] 10/15/2015 2:25 PM DRY HOUSE ATTENDANT 10/15/2015 2:25 PM DRY HOUSE ATTENDANT Narrative [facility] - 10/15/2015 2:39 PM DRY HOUSE ATTENDANT Drawn in OR [facility] Provider LAB BLOOD ADD-ON Final Resul t Performing Organization Address [facility] Co de Phone Number [facility] [address] * Prepare platelets (10/15/2015 2:03 PM DRY HOUSE ATTENDANT) Pathologist [facility] HXPLT # UNITS TRANSFUSED 1 [facility] HXPLATELETS UNIT INFO PLT [facility] Comment: Unit Blood Type A Pos Unit Number [id number] Component Type Platelets, Apheresis Leukoreduced, Irradiated, Bag 1 Issue Date/Time [id number] 10/15/2015 2:03 PM DRY HOUSE ATTENDANT Historical Provider BLOOD BANK PRODUCT ORDERABLE S Final Result Performing Organization Address [facility] de Phone Number [facility] [address] * Prepare fresh frozen plasma (10/15/2015 1:56 PM DRY HOUSE ATTENDANT) Pathologist [facility] HXFFP # UNITS TRANSFUSED 2 [facility] HXFFP UNIT INFO FFP [facility] Comment: Unit Blood Type A Pos Unit Number [id number] Component Type Thawed PLASMA Issue Date/Time [id number] Unit Blood Type A Pos Unit Number [id number] Component Type Thawed PLASMA Issue Date/Time [id number] 10/15/2015 1:56 PM DRY HOUSE ATTENDANT [facility] Provider BLOOD BANK PRODUCT ORDERABLE S Final Result Performing Organization Address [facility] Co de Phone Number [facility] [address] * (ABNORMAL) Hemoglobin (HGB), POCT (10/15/2015 1:39 PM DRY HOUSE ATTENDANT) Only the most recent of5 resultswithin the time period is included. Pathologist [facility] Hemoglobin, B 8.0(L) 12.0 - 15.5 G/DL [facility] 10/15/2015 1:39 PM DRY HOUSE ATTENDANT 10/15/2015 1:39 PM DRY HOUSE ATTENDANT Beni Soriano M.D. LAB POCT ORDERABLES - DEVIC E Final Result [facility] [address] * Hx general Pathology Report (10/15/2015 11:34 AM DRY HOUSE ATTENDANT) Only the most recent of2 resultswithin the time period is included. 10/15/2015 11:3 4 AM DRY HOUSE ATTENDANT 10/15/2015 11:34 AM DRY HOUSE ATTENDANT Narrative [facility] - 10/15/2015 11:34 AM DRY HOUSE ATTENDANT 10/15/2015 General Biopsy ([id number]) Requested By: Connor Ramos M.D. [id number] SLIDE DISPOSITION: DIAGNOSIS: A. Heart, left atrial appendage, excision: Left atrial appendage with myocyte hypertrophy, without mural thrombus, removed during the Maze procedure. Participated in interpretation: Dr. Sandeep Parks. Pager: [phone]. As the signing pathologist, I verify that I have examined all relevant slides/materials for the specimen(s) and rendered or confirmed the diagnosis. 10/17/2015 12:35 Interpreted by: Savanna Mclain M.D. [id number] Report electronically signed by Savanna Mclain M.D. Transcribed by: [facility] 10/16/2015 15:34:43 TISSUE DESCRIPTION: [id number] A1 A. Received in formalin labeled with the patient's name Christie Carlisle and and labeled as left atrial appendage is an atrial appendage measuring 7.5 x 3.3 x 1.1 cm without mural thrombus. Filtration Plant Mechanic sections submitted for microscopy in cassette A1. Additional tissue procured for research purposes. Part A: Left atrial tissue 1 lt atrial tissue CV Path Procedure Note 02/06/2018 10/15/2015 General Biopsy ([id number]) Requested By: Connor Ramos M.D. [id number] SLIDE DISPOSITION: DIAGNOSIS: A. Heart, left atrial appendage, excision: Left atrial appendage with myocyte hypertrophy, without mural thrombus, removed during the Maze procedure. Participated in interpretation: Dr. Sandeep Parks. Pager: [phone]. As the signing pathologist, I verify that I have examined all relevant slides/materials for the specimen(s) and rendered or confirmed the diagnosis. 10/17/2015 12:35 Interpreted by: Savanna Mclain M.D. [id number] Report electronically signed by Savanna Mclain M.D. Transcribed by: [facility] 10/16/2015 15:34:43 TISSUE DESCRIPTION: [id number] A1 A. Received in formalin labeled with the patient's name Christie Carlisle and and labeled as left atrial appendage is an atrial appendage measuring 7.5 x 3.3 x 1.1 cm without mural thrombus. Filtration Plant Mechanic sections submitted for microscopy in cassette A1. Additional tissue procured for research purposes. Part A: Left atrial tissue 1 lt atrial tissue CV Path us Connor Ramos M.D., Ph.D. LAB PATHOLOGY/CYTOLOGY ORDERABLES Final Result [address] * HX intra-Op Auto Tx (10/15/2015 10:05 AM DRY HOUSE ATTENDANT) HXRBC # UNITS TRANSFUSED 3.45 [facility] HXRBC UNIT INFO RBC [facility] Comment: Component Type Intraoperative Salvaged RBC Unit Number =[id number] Issue Date/Time [id number] Component Type Intraoperative Salvaged RBC Unit Number =[id number] Issue Date/Time [id number] Component Type Intraoperative Salvaged RBC Unit Number =[id number] Issue Date/Time [id number] 10/15/2015 10:0 5 AM DRY HOUSE ATTENDANT Historical Provider LAB HISTORICAL ORDERS Final Result [facility] [address] [place] [address], [place] * Echo Transesophageal (ANISH) (10/15/2015 10:05 AM DRY HOUSE ATTENDANT) Anatomical Region Laterality Modality Echocardiography 10/15/2015 10:0 5 AM DRY HOUSE ATTENDANT Connor Ramos M.D., Ph.D. CV ECHO PROCEDURES Brii l Result * ANESTHESIOLOGY IMAGE EXAM (10/15/2015 9:09 AM DRY HOUSE ATTENDANT) Anatomical Region Laterality Modality Other 10/15/2015 9:09 AM DRY HOUSE ATTENDANT Addenda Addendum by ProviderButch M.D. on 10/15/2015 9:09 AM DRY HOUSE ATTENDANT ANES^^^MCR Guided procedure 10/15/2015 09:09:30 Historical Provider IMG NON RAD IMAGING PROCEDUR ES Final Result * CATH (10/12/2015 8:45 AM DRY HOUSE ATTENDANT) Anatomical Region Laterality Modality Other 10/12/2015 8:45 AM DRY HOUSE ATTENDANT Historical Provider IMG NON RAD IMAGING PROCEDUR ES Final Result * Cardiac Catheterization Report Text (10/12/2015 8:36 AM DRY HOUSE ATTENDANT) Anatomical Region Laterality Modality Other 10/12/2015 8:36 AM DRY HOUSE ATTENDANT Narrative 10/12/2015 11:37 AM DRY HOUSE ATTENDANT Oct 12, 2015 CATH FINAL REPORT REPORT DATE: Oct 12, 2015 START TIME: 08:36:22 STUDY NUMBER: REFERRING MD: Connor Ramos. RESPONSIBLE MD: Rico Nicolas HEIGHT : 180 cm WEIGHT : 69 kg BSA : 1.87 m2 PROCEDURE TYPES: 1. Coronary Angiography FINAL DIAGNOSIS: 1. Normal coronary arteries CALCULATIONS AND MEASUREMENTS Baseline Pressure Data (mmHg) Time Site Sys Joseph EDP Mean A-Wave V-Wave Max dp/dt HR 09:00 AO 140 82 108 88 CORONARY SUMMARY Normal coronary arteries. Coronary artery dominance is right. RADIATION DOSE DATA Procedure Cumulative Skin Dose data not available at the time the report was generated. CONTRAST DOSE DATA Procedure Contrast Dose not available at the time the report was generated. TIME DESCRIPTION 08:36 Phase: Baseline 08:36 Case start 08:36 Patient on Table 08:53 Physician Called 08:53 Physician Arrived 08:56 Allergies reviewed 08:57 Briefing Done 08:58 Lidocaine Subcut.100 mg (Right Femoral) 08:58 p Right Femoral Artery, sheath size (Fr): 4 08:59 4fr Catheter JL4 09:00 AO : 140/82/108, HR = 88, I 09:01 4fr Catheter JL5 09:02 Left Coronary Injections 09:04 4fr Catheter JR4 09:06 Right Coronary Injections 09:06 Low Osmolar Omnipaque-350 (cc's): 50 09:06 Procedure: Coronary Angiography 09:07 Referring Physician Notified 09:07 Patient's vital signs: Stable 09:07 Patient's level of consciousness: Alert 09:07 Estimated Blood Loss: Minimal 09:07 Procedural Complications: None 09:08 Cosmetic Chemist Departure 09:08 Case End PHYSICIAN PARTICIPATION AND DIRECTION The responsible physician was present during the entire procedure. All medications, including moderate sedation, administered during the episode of care were done so under physician direction. Procedure Note Rico Nicolas M.D., Ph.D. - 02/22/2018 Oct 12, 2015 CATH FINAL REPORT REPORT DATE: Oct 12, 2015 START TIME: 08:36:22 STUDY NUMBER: REFERRING MD: Connor Ramos RESPONSIBLE MD: Rico Nicolas HEIGHT : 180 cm WEIGHT : 69 kg BSA : 1.87 m2 PROCEDURE TYPES: 1. Coronary Angiography FINAL DIAGNOSIS: 1. Normal coronary arteries CALCULATIONS AND MEASUREMENTS Baseline Pressure Data (mmHg) Time Site Sys Joseph EDP Mean A-Wave V-Wave Max dp/dt HR 09:00 AO 140 82 108 88 CORONARY SUMMARY Normal coronary arteries. Coronary artery dominance is right. RADIATION DOSE DATA Procedure Cumulative Skin Dose data not available at the time the reportwas generated. CONTRAST DOSE DATA Procedure Contrast Dose not available at the time the report wasgenerated. TIME DESCRIPTION 08:36 Phase: Baseline 08:36 Case start 08:36 Patient on Table 08:53 Physician Called 08:53 Physician Arrived 08:56 Allergies reviewed 08:57 Briefing Done 08:58 Lidocaine Subcut.100 mg (Right Femoral) 08:58 p Right Femoral Artery, sheath size (Fr): 4 08:59 4fr Catheter JL4 09:00 AO : 140/82/108, HR = 88, I 09:01 4fr Catheter JL5 09:02 Left Coronary Injections 09:04 4fr Catheter JR4 09:06 Right Coronary Injections 09:06 Low Osmolar Omnipaque-350 (cc's): 50 09:06 Procedure: Coronary Angiography 09:07 Referring Physician Notified 09:07 Patient's vital signs: Stable 09:07 Patient's level of consciousness: Alert 09:07 Estimated Blood Loss: Minimal 09:07 Procedural Complications: None 09:08 Cosmetic Chemist Departure 09:08 Case End PHYSICIAN PARTICIPATION AND DIRECTION The responsible physician was present during the entire procedure. All medications, including moderate sedation, administered during theepisode of care were done so under physician direction. Connor Ramos M.D., Ph.D. CV CARDIAC CATH PROCEDU RES Final Result * Cardiac Catheterization (10/12/2015 8:36 AM DRY HOUSE ATTENDANT) Anatomical Region Laterality Modality Other 10/12/2015 8:36 AM DRY HOUSE ATTENDANT [facility] Provider CV CARDIAC CATH PROCEDURES F inal Result * ABORh, RBC (10/12/2015 7:27 AM DRY HOUSE ATTENDANT) Only the most recent of2 resultswithin the time period is included. HXABO/RH BLOOD TYPE A Neg [facility] 10/12/2015 7:27 AM DRY HOUSE ATTENDANT [facility] Provider LAB BLOOD BANK TEST ORDERABL ES Final Result [facility] [address] [place], [place] [id number] [place] [address] * Antibody Screen, RBC (10/12/2015 7:27 AM DRY HOUSE ATTENDANT) Antibody Screen Negative [facility] 10/12/2015 7:27 AM DRY HOUSE ATTENDANT Historical Provider LAB BLOOD BANK TEST ORDERABL ES Final Result Performing Organization Address [facility] Co de Phone Number [facility] [address] * BMP (Basic Metabolic Panel), POCT (10/04/2015 11:07 AM DRY HOUSE ATTENDANT) Hematocrit TNP 34.9 - 44.5 POWERCHART Blood 10/04/2015 11:0 7 AM DRY HOUSE ATTENDANT Beni Turpin M.D. LAB POCT ORDERABLES - MAYUR CE Edited Result - Final Performing Organization Address [facility] Co de Phone Number POWERCHART * Gram Stain, Urine (09/21/2015 8:50 PM DRY HOUSE ATTENDANT) Gram's Stain, Screen, U Negative [facility] 09/21/2015 8:50 PM DRY HOUSE ATTENDANT 09/21/2015 8:50 PM DRY HOUSE ATTENDANT Ronaldo De Jesus APRNNJamilah., M.S.N. LAB URINE ORD ERABLES Final Result Performing Organization Address [facility] de Phone Number [facility] [address] * Microbiology Reports (09/21/2015 4:01 PM DRY HOUSE ATTENDANT) Only the most recent of2 resultswithin the time period is included. 09/21/2015 4:01 PM DRY HOUSE ATTENDANT 09/21/2015 4:01 PM DRY HOUSE ATTENDANT Narrative [facility] - 09/26/2015 6:30 PM DRY HOUSE ATTENDANT 21-SEP-2015 BLOOD, SoftOrd# [id number] (Ordered 21-SEP-2015; Collected 21-SEP-2015 16:01; Received 21-SEP-2015 16:24) [facility] Drawn Above IV BACTERIA/MARILYN CULTURE, BLOOD (Reported 26-SEP-2015 18:30) FINAL No growth after 5 days of incubation. Procedure Note 02/23/2018 21-SEP-2015 BLOOD,SoftOrd# [id number] (Ordered 21-SEP-2015; Collected 21-SEP-2015 16:01; [id number] 16:24) [facility] Above IV BACTERIA/MARILYN CULTURE, BLOOD(Reported 26-SEP-2015 18:30) FINAL No growth after 5 days of incubation. Result [facility] Ronaldo De Jesus APRNNJuan AlbertoP., M.S.N. LAB M ICROBIOLOGY - GENERAL ORDERABLES Final Result Performing Organization Address [facility]/ZIP Co de Phone Number [facility] [address] * Outside DX Chest (09/21/2015 6:08 AM DRY HOUSE ATTENDANT) 09/21/2015 6:08 AM DRY HOUSE ATTENDANT Addenda Addendum by ProviderButch M.D. on 09/21/2015 6:08 AM DRY HOUSE ATTENDANT ODM^^^MCR XR CHEST 2 VIEWS PA AND LATERAL 09/21/2015 06:08:14 Result [facility] Historical Provider IMG DIAGNOSTIC IMAGING PROCE DURES Final Result Performing Organization Address [facility] Co de Phone Number [facility] [address] [place] [address] * Echo Transthoracic (TTE) (09/05/2015 9:57 AM CDT) Anatomical Region Laterality Modality Echocardiography 09/05/2015 9:57 AM CDT Historical Provider CV ECHO PROCEDURES Edited Re sult - Final * Mercury (Hg) (09/05/2015 9:55 AM CDT) Only the most recent of2 resultswithin the time period is included. Mercury, B <1 0 - 9 NGML POWERCHART Comment: Test Performed by: [facility] [address] [place] [address] Communications Operator: Ollie Carbajal II, M.D., Ph.D. Blood 09/05/2015 9:55 AM CDT Beni Turpin M.D. LAB BLOOD NON ADD-ON Final Result Performing Organization Address [facility]/ZIP Co de Phone Number POWERCHART * Bacterial Culture, Aerobic, Urine (09/03/2015 3:37 PM CDT) Pathologist [facility] Bacterial Culture, Aerobic, Urine POWERCHART HXFinal No growth POWERCHART Urine, First Voided 09/03/2015 3:37 PM CDT 09/03/2015 3:37 PM CDT Beni Turpin M.D. LAB MICROBIOLOGY - GENERAL ORDERABLES Edited Result - Final Performing Organization Address [facility] de Phone Number POWERCHART * (ABNORMAL) Urinalysis, Midstream, with culture if indicated (09/03/2015 3:07 PM CDT) Pathologist [facility] HXUr Color Yellow Colorless POWERCHART Clarity Clear Clear POWERCHART Glucose Negative Negative MGDL POWERCHART HXBILIRUBIN Negative Negative POWERCHART Ketones, QL(U) Negative Negative MGDL POWERCHART Specific [place], POCT, U 1.015 POWERCHART HXBLOOD Small(A) Negative POWERCHART pH, POCT, Urine 5.0 <5.0 POWERCHART Protein, Ur, Dip Negative Negative MGDL POWERCHART Urobilinogen 0.2 0.2 MGDL POWERCHART HXNITRITE Negative Negative POWERCHART Leukocyte Esterase Negative Negative POWERCHART HXUR WBC. Occ-3 None Seen HPF POWERCHART HXUR RBC. Occ-2 None Seen HPF POWERCHART HXUR Bacteria, None Seen None Seen POWERCHART Squamous Epithelial Occ-3(A) None Seen HPF POWERCHART Urine, First Voided 09/03/2015 3:07 PM CDT Beni Turpin M.D. LAB URINE ORDERABLES Final Result Performing Organization Address [facility] de Phone Number POWERCHART * Hepatic Function Panel (09/03/2015 2:56 PM CDT) Alkaline Phosphatase, S 66 55 - 142 UNITL POWERCHART Alanine Amniotransferase, LD 30 7 - 45 UNITL POWERCHART Aspartate Aminotransferase (AST), S 29 8 - 43 UNITL POWERCHART Bilirubin, Direct, S 0.20 <=0.30 MGDL POWERCHART Bilirubin, Total, S 0.6 0.1 - 1.0 MGDL POWERCHART Total Protein, S 7.5 6.3 - 7.9 GDL POWERCHART Albumin, S 4.1 3.2 - 5.2 GDL POWERCHART HXGlobulin 3 POWERCHART Blood 09/03/2015 2:56 PM CDT Beni Turpin M.D. LAB BLOOD ADD-ON Final Res ult Performing Organization Address [facility]/ZIP Co de Phone Number POWERCHART * Vitamin B12 Level and Folate (09/03/2015 2:56 PM CDT) Folate, S >16.2 >=4.0 NGML POWERCHART Vitamin B12 Assay, S >1473 180 - 914 NGL POWERCHART Blood 09/03/2015 2:56 PM CDT Beni Turpin M.D. LAB BLOOD NON ADD-ON Final Result Performing Organization Address [facility] de Phone Number POWERCHART * Echo Transthoracic (TTE) (01/06/2013 12:26 PM DRY HOUSE ATTENDANT) Anatomical Region Laterality Modality Echocardiography 01/06/2013 12:2 6 PM DRY HOUSE ATTENDANT Historical Provider CV ECHO PROCEDURES Final Res ult * Echo Transthoracic (TTE) (06/12/2011 10:48 AM CDT) Anatomical Region Laterality Modality Echocardiography 06/12/2011 10:4 8 AM CDT Historical Provider CV ECHO PROCEDURES Final Res ult * Echocardiogram (06/12/2011 10:48 AM CDT) Anatomical Region Laterality Modality Echocardiography 06/12/2011 10:4 8 AM CDT Historical Provider CV ECHO PROCEDURES Final Res ult * ThinPrep Screen HPV Reflex (06/09/2011 9:42 AM CDT) Interpretation [id number] POWERCHART HXThPrep Scrn [facility] See Comment POWERCHART Comment: A. ThinPrep Pap Test Screen (Cervical/Endocervical HPV Reflex): Satisfactory for evaluation. Scanty cellularity. Negative for intraepithelial lesion or malignancy. [facility] See Comment POWERCHART Comment: Report electronically signed by Magdalena Garzon, CT(ASCP) 06/12/2011 11:10 Interpreted by: Caleb Angulo, CT(ASCP) HX Spec [facility] See Comment POWERCHART Comment: A. ThinPrep Pap Test Screen (Cervical/Endocervical HPV Reflex): Received cloudy specimen in ThinPrep vial. Test Performed by: [facility] Dpt of Lab Med and Pathology [address] [place] [address] Communications Operator: Garrick Oviedo III, M.D. Cervix/Endocervix 06/09/2011 9:42 AM CDT Beni Turpin M.D. LAB PAP PATHDX ORDERABLES Final Result POWERCHART * Pathology Surgical Pathology, [facility] (11/11/2010 4:38 PM DRY HOUSE ATTENDANT) Pathologist [facility] HXSurg IV [facility] [phone] POWERCHART HXSurg IV [facility] See Comment POWERCHAR T Comment:RESULT: Francisco strickland M.D. HXSurg IV [facility] See Comment POWERCHART Comment: [facility] [address] [place] [address] Priority Fax SLIDE DISPOSITION: HXSurg IV [facility] See Comment POWERCHART Comment: [id number] A1 A. Received in formalin labeled with the patient's name and medical record number as [id number] labeled as perineal are three fragments of beaulieu-brown irregular soft tissue ranging in size from 0.3-0.5 cm in greatest dimension. Specimen is entirely submitted in cassettes A1. Part A: Perineal 1 Perineal XRSR Path HXSurg IV [facility] See Comment POWERCHART Comment:RESULT: A. Perineal, biopsy: Lichen sclerosis et atrophicus. HXSurg IV [facility] See Comment POWERCHART Comment: RESULT: 11/14/2010 18:09 Interpreted by: Radha Avitia M.D. Report electronically signed by Radha Avitia M.D. Transcribed by: juan f 11/14/2010 18:06:46 Test Performed by: [facility] Dpt of Lab Med and Pathology [address] [place] [address] Communications Operator: Garrick Oviedo III, M.D. Tissue 11/11/2010 4:38 PM DRY HOUSE ATTENDANT Francisco Jackson M.D. LAB SURG PATH ORDERABLES F inal Result POWERCHART * Echocardiogram (06/13/2010 9:02 AM CDT) Anatomical Region Laterality Modality Echocardiography 06/13/2010 9:02 AM CDT Historical Provider CV ECHO PROCEDURES Final Res ult * BI Breast Diagnostic Left Additional Views (05/30/2009 3:58 PM CDT) Anatomical Region Laterality Modality Breast Left Mammography 05/30/2009 3:58 PM CDT Impressions 05/31/2009 9:30 AM CDT Benign appearing calcifications, no radiographic evidence of malignancy. Recommend return to regular schedule of breast exams and screening mammography. ACR code: 2, benign findings. Narrative 05/31/2009 9:30 AM CDT HISTORY: Followup of microcalcifications on the left. COMPARISON: Left mammograms of 05/24/2009, 04/20/2008, and 11/06/2004. FINDINGS: Craniocaudal and medial oblique magnification views are obtained with attention to the microcalcifications at the upper mid breast on the left. These identify several microcalcifications which show no significant pleomorphism or associated mass. In addition it is noted that at least some of these microcalcifications have been present on serial mammograms dating to 2003. They have increased slightly in size and number over time. There is no radiographic evidence of malignancy. Procedure Note John Paul Mullen Jr., M.D. / ProviderButch M.D. - 04/20/2017 HISTORY: Followup of microcalcifications on the left. COMPARISON: Left mammograms of 05/24/2009, 04/20/2008, and 11/06/2004. FINDINGS: Craniocaudal and medial oblique magnification views are obtained with attention to the microcalcifications at the upper mid breast on the left. These identify several microcalcifications which show no significant pleomorphism or associated mass. In addition it is noted that at least some of these microcalcifications have been present on serial mammograms dating to 2003. They have increased slightly in size and number over time. There is no radiographic evidence of malignancy. IMPRESSION: Benign appearing calcifications, no radiographic evidence of malignancy. Recommend return to regular schedule of breast exams and screening mammography. ACR code: 2, benign findings. Beth Crawford R.T.(R), R.T.(R)(M) IMG BI PROC EDURES Edited Result - Final * MA MAMMO SCREENING W CADD (05/24/2009 9:43 AM CDT) Only the most recent of3 resultswithin the time period is included. Anatomical Region Laterality Modality Other 05/24/2009 9:43 AM CDT Historical Provider IMG NON RAD IMAGING PROCEDUR ES Edited Result - Final * Echocardiogram (05/24/2009 8:53 AM CDT) Anatomical Region Laterality Modality Echocardiography 05/24/2009 8:53 AM CDT Historical Provider CV ECHO PROCEDURES Final Res ult * Echocardiogram (06/01/2008 2:06 PM CDT) Anatomical Region Laterality Modality Echocardiography 06/01/2008 2:06 PM CDT Historical Provider CV ECHO PROCEDURES Final Res ult * Cytology (03/25/2005 9:50 AM CDT) 03/25/2005 9:50 AM CDT 03/25/2005 9:50 AM CDT Narrative [facility] - 03/25/2005 9:50 AM CDT 03/25/2005 Cytology Non-Gynecological ([id number]) Requested By: Leonila Hassan M.D. [phone] SPECIMEN DESCRIPTION: A. Pelvic Wash: Received 40cc of yellow colored fluid DIAGNOSIS: A. Pelvic Wash: Negative for malignancy. Reactive mesothelial cells present. 03/26/2005 Jaime Cox M.D. [phone] Procedure Note 02/08/2018 03/25/2005 Cytology Non-Gynecological ([id number]) Requested By: Leonila Hassan M.D. [phone] SPECIMEN DESCRIPTION: A. Pelvic Wash: Received 40cc of yellow colored fluid DIAGNOSIS: A. Pelvic Wash: Negative for malignancy. Reactive mesothelial cells present. 03/26/2005 Jaime Cox M.D. [phone] us Leonila Hassan M.D. LAB PATHOLOGY/CYTOLOGY ORD ERABLES Final Result [address] * [facility] Image Exam (03/25/2005 9:10 AM CDT) Narrative [facility] - 03/07/2020 1:13 PM CDT This order has been created and auto-finalized to support the import of images acquired without order. The clinical documentation to support these images can be found on the encounter that produced images. us Provider Not In System IMG NON RAD IMAGING PROCE DURES Final Result IIIL NA * PATHOLOGY IMAGE EXAM (03/25/2005 9:07 AM CDT) Anatomical Region Laterality Modality Other 03/25/2005 9:07 AM CDT Addenda Addendum by Provider, Historical on 03/25/2005 9:07 AM CDT PATH^^^MCR Specimen 03/25/2005 09:07:00 us Historical Provider IMG NON RAD IMAGING PROCEDUR ES Final Result * HX hilary Surg Bld Order (03/25/2005 5:05 AM CDT) Antibody Screen Neg [facility] 03/25/2005 5:05 AM CDT 03/25/2005 7:01 AM CDT us Historical Provider LAB HISTORICAL ORDERS Final Result [facility] [address] * US Abdomen Pelvis Vessels Limited Doppler (03/04/2005 9:26 AM CDT) Anatomical Region Laterality Modality Abdomen, Pelvis N/A Ultrasound 03/04/2005 9:26 AM CDT Narrative 03/04/2005 10:27 AM CDT 04-Mar-2005 09:26:00 Exam: US Abd-Pel Vessels Limited Indications: cyst ovary, doppler ORIGINAL REPORT - 04-Mar-2005 10:27:00 7.4x6.6x4.1cm cystic mass in the left adnexa containing at least one internal septation and possible wall nodularity. This has increased in size since the preivous examinations of 01/20/2005 and 11/01/2004. No evidence of right adnexal mass. The uterus measures 7.2x4.8x2.9cm in size. The endometrium measures 4mm in bi-layer thickness. Electronic Images Only--NO FILMS MADE Ind: [id number] Electronically signed by: Ronaldo Clayton MD. [phone] 04-Mar-2005 10:27 Procedure Note Forrest, Seven Glaser M.D. - 02/17/2018 04-Mar-2005 09:26:00 Exam: US Abd-Pel Vessels Limited Indications: cyst ovary, doppler ORIGINAL REPORT - 04-Mar-2005 10:27:00 7.4x6.6x4.1cm cystic mass in the left adnexa containing at least oneinternal septation and possible wall nodularity. This has increased insize since the preivous examinations of 01/20/2005 and 11/01/2004. Noevidence of right adnexal mass. The uterus measures 7.2x4.8x2.9cm in size.The endometrium measures 4mm in bi-layer thickness. Electronic Images Only--NO FILMS MADE Ind: [id number] Electronically signed by: Ronaldo Clayton MD. [phone] 04-Mar-2005 10:27 us Benito Ng M.D. IMG US PROCEDURES Final Result * DX Outside Image Interpretation (11/04/2004 11:35 AM DRY HOUSE ATTENDANT) Anatomical Region Laterality Modality N/A Radiographic Velia ging 11/04/2004 11:3 5 AM DRY HOUSE ATTENDANT Narrative 11/04/2004 12:06 PM DRY HOUSE ATTENDANT 04-Nov-2004 11:35:00 Exam: Interp of OUTSIDE X-RAY Indications: ORIGINAL REPORT - 04-Nov-2004 12:06:[address] of the abdomen and pelvis with oral and IV contrast 08-12-04. 2.2cm solitary mass originating from the upper pole of the left kidney and containing small amount of identifiable fat on delayed images, characteristic of benign angiomyolipoma. This lesion corresponds to the ultrasound findings of echogenic mass on 11-01-04. Right kidney is negative for mass. Renal veins are patent. No para-aortic adenopathy. Multiple small hypoattenuating lesions scattered in the liver, most likely benign cyst. 3.5cm x 6cm cystic mass in the left adnexa, which corresponds to the ultrasound findings of a cyst of the left ovary. Outside MRI of the abdomen with and without gadolinium 08-15-04. 2.2cm mass originating from the upper left kidney. The mass contains identifiable fat. The findings correspond to the outside CT findings on 08-12-04 and ultrasound findings on 11-01-04 and are characteristic of benign angiomyolipoma. Multiple small cysts scattered in the liver. (11-04-04) (336) Electronically signed by: Dionisio Newell M.D. 04-Nov-2004 12:06 Procedure Note Dionisio Newell M.D., Ph.D. - 02/18/2018 04-Nov-2004 11:35:00 Exam: Interp of OUTSIDE X-RAY Indications: ORIGINAL REPORT - 04-Nov-2004 12:06:[address] of the abdomen and pelvis with oral and IV contrast 08-12-04.2.2cm solitary mass originating from the upper pole of the left kidney andcontaining small amount of identifiable fat on delayed images,characteristic of benign angiomyolipoma. This lesion corresponds to theultrasound findings of echogenic mass on 11-01-04. Right kidney isnegative for mass. Renal veins are patent. No para-aortic adenopathy.Multiple small hypoattenuating lesions scattered in the liver, most likelybenign cyst. 3.5cm x 6cm cystic mass in the left adnexa, which correspondsto the ultrasound findings of a cyst of the left ovary. Outside MRI of the abdomen with and without gadolinium 08-15-04. 2.2cm massoriginating from the upper left kidney. The mass contains identifiablefat. The findings correspond to the outside CT findings on 08-12-04 andultrasound findings on 11-01-04 and are characteristic of benignangiomyolipoma. Multiple small cysts scattered in the liver. (11-04-04) (336) Electronically signed by: Dionisio Newell M.D. 04-Nov-2004 12:06 Sean Mark M.D. [facility] PROC EDURES Final Result * US Abdomen Limited (11/01/2004 2:08 PM DRY HOUSE ATTENDANT) Anatomical Region Laterality Modality Abdomen N/A Ultrasound 11/01/2004 2:08 PM DRY HOUSE ATTENDANT Narrative 11/19/2004 12:47 PM DRY HOUSE ATTENDANT 01-Nov-2004 14:08:00 Exam: US Retroperitoneal Limited Indications: mass renal REVISED REPORT - 19-Nov-2004 12:47:00 Ultrasound examination of the left kidney demonstrates a 2.1cm echogenic mass in the posterior portion of the upper pole of the left kidney. This looks like an angiomyolipoma. There is a small cystic component near the presumed angiomyolipoma and this should be of no clinical significance. Kidneys are otherwise negative. Left kidney 10cm, right kidney 10.8cm [id number]. Ultrasound Electronic Images Only--No Films Made Ind: [id number] Electronically signed by: Teodoro Hall MD. [id number] 19-Nov-2004 12:47 Procedure Note Saulo Hall M.D. - 02/18/2018 01-Nov-2004 14:08:00 Exam: US Retroperitoneal Limited Indications: mass renal REVISED REPORT - 19-Nov-2004 12:47:00 Ultrasound examination of the left kidney demonstrates a 2.1cm echogenicmass in the posterior portion of the upper pole of the left kidney. Thislooks like an angiomyolipoma. There is a small cystic component near thepresumed angiomyolipoma and this should be of no clinical significance.Kidneys are otherwise negative. Left kidney 10cm, right kidney [id number]-ivut. Ultrasound Electronic Images Only--No Films Made Ind: [id number] Electronically signed by: Teodoro Hall MD. [phone] 19-Nov-2004 12:47 Benito Ng M.D. IMT[facility] US PROCEDURES Edited Resul t - Final * Echocardiogram (07/24/2004 9:39 AM CDT) Anatomical Region Laterality Modality Echocardiography 07/24/2004 9:39 AM CDT us Historical Provider CV ECHO PROCEDURES Final Res ult Visit Diagnoses Diagnosis Start Date Regurgitation Mitral 09/23/2017 Bleeding Postmenopausal 10/05/2017 Abnormal Ultrasound Endometrium 10/05/2017 Bleeding Postmenopausal 10/19/2017 Persistent Atrial Fibrillation 12/23/2017 Chronic Diastolic (Congestive) Heart Failure (HCC) 12/23/2017 Dysuria 01/05/2018 Cystitis Acute 01/05/2018 Swelling Toe 05/03/2018 Fracture Toe Closed Initial Right 05/03/2018 Fracture Toe Closed Initial Right 05/06/2018 Wound Hand Open Initial Left 05/25/2018 Hyperlipidemia 05/26/2018 Screening Mammogram Average Risk Patient 05/26/2018 Encounter For Removal Of Sutures 06/04/2018 Hoarseness 06/09/2018 Hoarseness 06/09/2018 Pain Breast 06/09/2018 Screening Osteoporosis 06/09/2018 Xerosis 06/09/2018 Other Chest Pain 06/09/2018 Lesion Skin Chest 06/17/2018 Pain Breast 06/21/2018 Satisfactory Breast Exam 06/21/2018 Hoarseness 06/29/2018 Cyst Laryngeal 06/29/2018 Dysphonia 06/29/2018 Drip Post Nasal 06/29/2018 Chronic Cough 06/29/2018 Persistent Atrial Fibrillation 07/07/2018 Hyperlipidemia 07/08/2018 Cyst Vocal Cord 07/09/2018 Cyst Vocal Cord 08/19/2018 Screening Osteoporosis 08/31/2018 Pain Pleuritic Chest 09/09/2018 Pain Pleuritic Chest 09/09/2018 Injury Chest Wall Initial 09/09/2018 Fracture Rib One Sequela Right 09/15/2018 Fracture Rib One Sequela Right 09/15/2018 Bronchitis 09/29/2018 Fracture Rib One Sequela Right 09/29/2018 Painful Sternal Wire Subsequent 09/29/2018 General Medical Examination Adult 11/12/2018 Preoperative Exam 11/12/2018 Cellulitis Toe Right 01/25/2019 Persistent Atrial Fibrillation 04/13/2019 Pain Chest 04/13/2019 Pain Chest 05/25/2019 Monitoring For Therapeutic Drug Therapy 06/23/2019 Hyperlipidemia 06/23/2019 Screening Mammogram Breast Cancer 07/06/2019 Anemia 08/18/2019 Monitoring For Therapeutic Drug Therapy 09/15/2019 Hyperlipidemia 09/15/2019 Anemia 09/15/2019 Atrial Fibrillation Longstanding Persistent (HCC) 10/19/2019 Atrial Fibrillation Longstanding Persistent (HCC) 10/25/2019 Atrial Fibrillation Longstanding Persistent (HCC) 11/18/2019 Atrial Fibrillation Longstanding Persistent (HCC) 01/19/2020 Atrial Fibrillation Longstanding Persistent (HCC) 01/19/2020 Atrial Fibrillation Longstanding Persistent (HCC) 01/30/2020 Atrial Fibrillation Longstanding Persistent (HCC) 02/01/2020 Atrial Fibrillation Longstanding Persistent (HCC) 02/01/2020 Atrial Fibrillation Longstanding Persistent (HCC) 02/10/2020 Pain Chest Atypical 02/20/2020 Viral Syndrome 05/15/2020 Screening Examination Diabetes Mellitus 06/05/2020 Screening Mammogram Breast Cancer 08/20/2020 Hyperlipidemia 08/20/2020 Pain Chest Atypical 08/29/2020 Atrial Fibrillation Longstanding Persistent (HCC) 08/29/2020 Screening Examination Diabetes Mellitus 09/11/2020 Hyperlipidemia 09/11/2020 Atrial Fibrillation Longstanding Persistent (HCC) 09/20/2020 Chronic Diastolic (Congestive) Heart Failure (HCC) 09/20/2020 Hyperlipidemia 09/20/2020 Osteoporosis 09/20/2020 Screening Osteoporosis 09/20/2020 Cyst Laryngeal 09/20/2020 Need Vaccine Immunization Influenza 09/20/2020 Screening Mammogram Breast Cancer 11/19/2020 Pain Rib 01/17/2021 Encounter For Other Specified Aftercare 01/17/2021 Pain Rib 01/17/2021 Pain Knee Left 01/17/2021 Pain Shoulder Right 04/03/2021 Pain Shoulder Right 04/03/2021 Screening Mammogram Breast Cancer 06/04/2021 Screening Mammogram Breast Cancer 06/27/2021 Preoperative Exam 07/09/2021 Screening Osteoporosis 07/09/2021 Cyst Laryngeal 07/12/2021 Dysphonia 07/12/2021 Hyperlipidemia 08/20/2021 Atrial Fibrillation Longstanding Persistent (HCC) 08/21/2021 Atrial Fibrillation Longstanding Persistent (HCC) 08/21/2021 Hyperlipidemia 09/03/2021 Lichen Sclerosus 11/05/2021 Chronic Diastolic (Congestive) Heart Failure (HCC) 11/05/2021 Atrial Fibrillation Longstanding Persistent (HCC) 11/05/2021 Concern Patient Cognition Function 11/05/2021 Contact With And (Suspected) Exposure To COVID-19 11/18/2021 Infection Upper Respiratory 11/18/2021 Concern Patient Cognition Function 11/25/2021 Concern Patient Cognition Function 11/25/2021 Elevated Glucose 11/26/2021 Hyperlipidemia 11/26/2021 Atrial Fibrillation Longstanding Persistent (HCC) 11/26/2021 Osteoporosis 11/26/2021 Hyperlipidemia 11/26/2021 Elevated Glucose 11/26/2021 Hematuria 11/26/2021 Hematuria 12/17/2021 Diarrhea 02/24/2022 Diarrhea 02/24/2022 Diarrhea 02/24/2022 Lyme Disease Personal History 04/03/2022 Chronic Diastolic (Congestive) Heart Failure (HCC) 04/03/2022 Diarrhea 04/28/2022 Diarrhea 04/28/2022 Diarrhea 04/28/2022 Hypertension Essential Primary 04/28/2022 Diarrhea 05/15/2022 Diarrhea 05/20/2022 Screening Mammogram Breast Cancer 07/22/2022 Atrial Fibrillation Longstanding Persistent (HCC) 08/27/2022 Atrial Fibrillation Longstanding Persistent (HCC) 08/27/2022 Pain Hand Left 09/12/2022 Pain Hand Left 09/12/2022 History Of Falling 09/12/2022 Hyperlipidemia 11/18/2022 Hyperlipidemia 12/05/2022 Palpitations 02/24/2023 Atrial Fibrillation Longstanding Persistent (HCC) 02/24/2023 Palpitations 02/26/2023 Atrial Fibrillation Longstanding Persistent (HCC) 02/26/2023 Palpitations 02/26/2023 Atrial Fibrillation Longstanding Persistent (HCC) 02/26/2023 Chronic Diastolic (Congestive) Heart Failure (HCC) 03/03/2023 Atrial Fibrillation Longstanding Persistent (HCC) 03/03/2023 History Of Falling 03/03/2023 Palpitations 03/25/2023 Atrial Fibrillation Longstanding Persistent (HCC) 03/25/2023 Bite Leg Insect Initial Left 05/11/2023 Insect Bite Back Initial Right 05/11/2023 Insect Bite (Includes Tick) Nonvenomous Abdominal Wall Initial 05/11/2023 Atrial Fibrillation Longstanding Persistent (HCC) 05/27/2023 Regurgitation Mitral 05/27/2023 Shortness Of Breath 05/27/2023 Atrial Fibrillation Longstanding Persistent (HCC) 05/29/2023 Regurgitation Mitral 05/29/2023 Dilated Aortic Root 05/29/2023 Insect Bite (Includes Tick) Nonvenomous Right Lower Leg Subsequent 09/18/2023 Insect Bite (Includes Tick) Nonvenomous Right Lower Leg Subsequent 09/18/2023 Osteoporosis 09/21/2023 Screening Mammogram Breast Cancer 10/20/2023 Osteoporosis 11/20/2023 Osteoporosis 11/20/2023 Osteoporosis 11/20/2023 Chronic Diastolic (Congestive) Heart Failure (HCC) 11/20/2023 Atrial Fibrillation Longstanding Persistent (HCC) 11/20/2023 History Of Falling 11/20/2023 Lesion Skin Face 11/25/2023 Keratosis 11/25/2023 Osteoporosis 12/24/2023 Osteoporosis 12/29/2023 Screening Examination Skin Cancer 02/12/2024 Tumor Skin Uncertain Behavior 02/12/2024 Keratosis Actinic 02/12/2024 Atrial Fibrillation Longstanding Persistent (HCC) 03/09/2024 Atrial Fibrillation Longstanding Persistent (HCC) 03/16/2024 Atrial Fibrillation Longstanding Persistent (HCC) 03/16/2024 Atrial Fibrillation Longstanding Persistent (HCC) 03/16/2024 Palpitations 03/28/2024 Atrial Fibrillation Longstanding Persistent (HCC) 03/28/2024 Repair Tricuspid Valve Status Post 03/28/2024 Repair Mitral Valve Status Post 03/28/2024 Snoring Primary 03/29/2024 Palpitations 03/29/2024 Atrial Fibrillation Longstanding Persistent (HCC) 04/13/2024 Atrial Fibrillation Longstanding Persistent (HCC) 04/21/2024 Atrial Fibrillation Longstanding Persistent (HCC) 04/21/2024 Sleep Apnea 04/25/2024 Atrial Fibrillation Longstanding Persistent (HCC) 04/29/2024 Atrial Fibrillation Longstanding Persistent (HCC) 04/29/2024 Chronic Diastolic (Congestive) Heart Failure (HCC) 04/29/2024 Atrial Fibrillation Longstanding Persistent (HCC) 06/08/2024 Regurgitation Mitral 06/08/2024 Dilated Aortic Root 06/08/2024 Abnormal Echocardiogram 06/08/2024 Atrial Fibrillation Longstanding Persistent (HCC) 06/08/2024 High Risk Medication 06/08/2024 High Risk Medication 06/09/2024 Atrial Fibrillation Longstanding Persistent (HCC) 06/09/2024 High Risk Medication 06/13/2024 Atrial Fibrillation Longstanding Persistent (HCC) 06/13/2024 Sleep Apnea 06/13/2024 Apnea Sleep Obstructive 06/13/2024 Abnormal Echocardiogram 06/15/2024 Atrial Fibrillation Longstanding Persistent (HCC) 06/15/2024 High Risk Medication 06/15/2024 Sleep Apnea 06/17/2024 Apnea Sleep Obstructive 06/17/2024 Diarrhea Functional 07/08/2024 Atrial Fibrillation Longstanding Persistent (HCC) 07/08/2024 Atrial Fibrillation Longstanding Persistent (HCC) 07/11/2024 Atrial Fibrillation Longstanding Persistent (HCC) 07/11/2024 Obstructive Sleep Apnea Adult 07/14/2024 Diarrhea 08/12/2024 Colitis Collagenous 08/12/2024 Diarrhea 08/12/2024 Diarrhea Functional 08/12/2024 Abnormal Echocardiogram 08/17/2024 Diarrhea Functional 09/07/2024 Palpitations 09/09/2024 Atrial Fibrillation Longstanding Persistent (HCC) 09/09/2024 Palpitations 09/14/2024 Atrial Fibrillation Longstanding Persistent (HCC) 09/21/2024 Fissure Anal 11/10/2024 Atrial Fibrillation Longstanding Persistent (HCC) 11/28/2024 Atrial Fibrillation Longstanding Persistent (HCC) 11/28/2024 Atrial Fibrillation Other Persistent (HCC) 11/28/2024 Hyperlipidemia 11/28/2024 Elevated Blood Pressure 11/28/2024 Cardiomyopathy (HCC) 11/28/2024 Finding Cardiac Echocardiogram Enlarged Atrium Left 11/28/2024 Repair Tricuspid Valve Status Post 11/28/2024 Repair Mitral Valve Status Post 11/28/2024 Anticoagulant Therapy 11/28/2024 Atrial Fibrillation Longstanding Persistent (HCC) 11/29/2024 Atrial Fibrillation Longstanding Persistent (HCC) 11/30/2024 Atrial Fibrillation Unspecified (HCC) 11/30/2024 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/01/2024 Atrial Fibrillation Longstanding Persistent (HCC) 11/29/2024 Atypical Atrial Flutter (HCC) 11/29/2024 Atrial Fibrillation Unspecified (HCC) 11/29/2024 Occlusion Retinal Artery Branch Right 11/29/2024 Pain Hand Right 11/29/2024 Debility [R53.81] 11/29/2024 Decline Functional Status [R53.81] 11/29/2024 Palpitations 11/29/2024 Cellulitis Hand Right 11/29/2024 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 Atrial Fibrillation Longstanding Persistent (HCC) 12/12/2024 Atrial Fibrillation Unspecified (HCC) 12/12/2024 Atrial Fibrillation Longstanding Persistent (HCC) 12/12/2024 Cellulitis Hand Right 12/12/2024 Lichen Sclerosus 12/20/2024 Cellulitis Hand Right 12/20/2024 Fissure Anal 12/20/2024 Lichen Sclerosus 12/20/2024 Atrial Fibrillation Other Persistent (HCC) 12/23/2024 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) 12/27/2024 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) 12/27/2024 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) 12/27/2024 Lichen Sclerosus 01/02/2025 Dermatitis Hand 01/02/2025 Purpura Simplex 01/02/2025 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) 01/02/2025 Abnormal Uterine And Vaginal Bleeding Unspecified 01/17/2025 Atrial Fibrillation Longstanding Persistent (HCC) 01/23/2025 Atrial Fibrillation Unspecified (HCC) 01/23/2025 Atrial Fibrillation Longstanding Persistent (HCC) 01/23/2025 Atrial Fibrillation Unspecified (HCC) 01/23/2025 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) 03/29/2025 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) 03/29/2025 Onychogryphosis 04/25/2025 Onychomycosis 04/25/2025 Bite Thigh Insect Subsequent Left 04/25/2025 History Of Falling 04/25/2025 Atrial Fibrillation Unspecified (HCC) 04/25/2025 Hypertensive Heart Disease Without Heart Failure 04/25/2025 Atrial Fibrillation Longstanding Persistent (HCC) 07/21/2025 Regurgitation Mitral 07/21/2025 Atrial Fibrillation Other Persistent (HCC) 07/21/2025 Screening Examination Skin Cancer 08/15/2025 Nevi Multiple 08/15/2025 Keratosis Seborrheic 08/15/2025 Angioma Castro 08/15/2025 Dermatoheliosis 08/15/2025 Atrial Fibrillation Permanent (HCC) 08/21/2025 Atrial Fibrillation Longstanding Persistent (HCC) 08/23/2025 Atrial Fibrillation Longstanding Persistent (HCC) 08/24/2025 Atrial Fibrillation Longstanding Persistent (HCC) 08/24/2025 Atrial Fibrillation Longstanding Persistent (HCC) 08/24/2025 Atrial Fibrillation Longstanding Persistent (HCC) 08/24/2025 Osteoporosis 08/29/2025 Atrial Fibrillation Longstanding Persistent (HCC) 11/29/2024 Atypical Atrial Flutter (HCC) 11/29/2024 Regurgitation Mitral 11/29/2024 Hyperlipidemia 11/29/2024 Chronic Diastolic (Congestive) Heart Failure (HCC) 11/29/2024 Atrial Fibrillation Unspecified (HCC) 11/29/2024 Care Teams Wagon Washer Relationship Specialty Start Date End Date Jay Guzman M.B.B.S., MShant. [address] [place] [address] [phone] PCP - General Family Medicine 09/20/20
--- NOTE | 2025-08-29 17:14 | ED.ARRPALP ---
HPI - Arrhythmia/Palpitations General Time Seen by Provider: 17:14 Date Seen: 08/29/25 Chief Complaint: Arrhythmia/Palpitations Stated Complaint: heart tired, chest pain, fullness chest and face Time Seen by Provider: 08/29/25 16:56 Source: patient and RN notes reviewed Mode of arrival: ambulatory Limitations: no limitations History of Present Illness HPI narrative: This 80-year-old female is ambulatory into the ER with concern of her heart being tired, some chest heaviness, not really chest pain just more of fullness. She feels like her face is hot. She has noticed the symptoms for couple days but seemed to worsen today. She has a long history of tachycardia and atrial fibrillation per her report. She is scheduled to go to [facility] tomorrow for an ablation and pacemaker placement. She does not want to be on chronic anticoagulation. She states she has been on anticoagulation around periods but is not willing to take at lifelong or long-term. She has had a Maze procedure I believe she said in 2014. She had had an ablation in November of this year. She was doing fine for while but states her heart rate started to go irregular. Her monitor will either read tachycardia or atrial fibrillation. She is not short of breath right now. She wants to make sure that she isn't suffering cardiac damage or having a heart attack. She states metoprolol has given her pauses in the past, diltiazem has given her pauses in the past and did not drop her heart rate below 100. She has done verapamil but it did not completely working and she had significant side effects from it. complaint: rapid heart beat Related Data Home Medications ?Medication ?Instructions ?Recorded ?Confirmed No Known Home Medications 08/29/25 08/29/25 Allergies Allergy/AdvReac Type Severity Reaction Status Date / Time cephalexin (From Keflex) Allergy Unknown Verified 08/29/25 16:53 corn Allergy Unknown Verified 08/29/25 16:53 milk Allergy Unknown Verified 08/29/25 16:53 wheat Allergy Unknown Verified 08/29/25 16:53 diltiazem AdvReac Intermediate Edema, Verified 08/29/25 16:53 Sinus Pause verapamil AdvReac Intermediate Edema Verified 08/29/25 16:53 Exam Const: Vital Signs, click to edit/add: Vital Signs - 24 hr 08/29/25 16:48 08/29/25 17:03 08/29/25 17:04 Temperature 98.2 F Pulse Rate 160 H 105 H Pulse Rate [Pulse Oximeter] 124 H Respiratory Rate 24 15 22 Blood Pressure 168/131 H Blood Pressure [Ri ght Upper Arm] 170/125 H Pulse Oximetry 96 99 99 Oxygen Delivery Me thod Room Air 08/29/25 17:05 08/29/25 17:15 08/29/25 17:17 Temperature Pulse Rate 108 H Pulse Rate [Pulse Oximeter] Respiratory Rate 22 14 Blood Pressure 178/103 H Blood Pressure [Ri ght Upper Arm] Pulse Oximetry 98 99 97 Oxygen Delivery Me thod 08/29/25 17:30 Temperature Pulse Rate 112 H Pulse Rate [Pulse Oximeter] Respiratory Rate 16 Blood Pressure Blood Pressure [Ri ght Upper Arm] Pulse Oximetry 98 Oxygen Delivery Me thod Course Course ED Course: This 80-year-old female is coming in with atrial fibrillation with RVR. She could potentially have other underlying rhythms but when I see in the EKG looks to be AFib. She did jump in the 160s to 170s and then would have a weird little pause in there. We discussed rate control with her, she is on no medicines. She has had pauses per report with metoprolol as well as diltiazem. She has taken oral verapamil but I doubt that to be sufficient in this situation here. She has a complex history, her blood pressure and oxygenation are maintaining, will contact Cardiology at [facility] prior to doing anything. Will get baseline labs and look at a portable chest x-ray but she does not seem to be in any overt congestive heart failure at this time. Reevaluation(s) Time of Reevaluation #1: 18:30 Reevaluation #1: Patient is definitely requesting to go home. She did not stand the diltiazem because it was giving her pauses. She is happy to go home and follow-up with her ablation and pacemaker placement tomorrow as planned. Patient was still in arrhythmia at time of discharge but heart rate was down around 110. Consultations Consultation #1: Have spoken with Anna JARAMILLO in the transfer center. We are going to fax the rhythm strip and the EKG to her. She will contact me back with Cardiology. 5:55 p.m.: Did speak with Dr. Cage from [facility]. Patient at that time was stating she wanted to leave. With her normal laboratory evaluation, no congestive heart failure, he did feel would be fine for patient to go home tonight and return to [facility] in the morning as planned. Her last note stated that she was on diltiazem. I reviewed with him that she stated was given her pauses. Will review this with her. She is not on any rate control or anticoagulation. He is aware that, if patient is stable and wants to discharge for her procedure tomorrow, he does feel that would be acceptable. Time: 17:19 Vital Signs Vital signs: Initial Vital Signs Temperature 98.2 F 08/29/25 16:48 Temperature Source Temporal Artery Scan 08/29/25 16:48 Pulse Rate 124 H 08/29/25 16:48 Respiratory Rate 24 08/29/25 16:48 Blood Pressure 170/125 H 08/29/25 16:48 Blood Pressure Mean 140 H 08/29/25 16:48 Blood Pressure Position Sitting 08/29/25 16:48 Pulse Oximetry 96 08/29/25 16:48 Oxygen Delivery Method Room Air 08/29/25 16:48 Vital Signs Temperature 98.2 F 08/29/25 16:48 Pulse Rate 124 H 08/29/25 16:48 Respiratory Rate 24 08/29/25 16:48 Blood Pressure 170/125 H 08/29/25 16:48 Pulse Oximetry 96 08/29/25 16:48 Oxygen Delivery Method Room Air 08/29/25 16:48 Temperature 98.2 F 08/29/25 16:48 Pulse Rate 112 H 08/29/25 17:30 Respiratory Rate 16 08/29/25 17:30 Blood Pressure 178/103 H 08/29/25 17:17 Pulse Oximetry 98 08/29/25 17:30 Oxygen Delivery Method Room Air 08/29/25 16:48 MDM - Arrhythmia/Palpitations Lab Data Attestation: I reviewed the patient's lab results. Labs: Lab Results 08/29/25 08/29/25 Range/Units 17:00 17:15 WBC 4.68 (4.50-11.00) K/uL RBC 4.36 (4.00-5.20) m/uL Hgb 13.2 (12.0-16.0) gm/dL Hct 41.1 (33.0-51.0) % MCV 94 (80-100) fL MCH 30 (26-34) pg MCHC 32 (32-36) gm/dL RDW Coeff of Swapna 13.3 (11.5-15.5) % Plt Count 214 (140-440) K/uL Neut % (Auto) 53.3 (42.0-72.0) % Lymph % (Auto) 31.6 (20-44) % [place] % (Auto) 9.8 (0.0-11.0) % Eos % (Auto) 4.1 (0.0-7.0) % Baso % (Auto) 0.6 (0.0-3.0) % Neut # (Auto) 2.49 (1.7-7.0) K/uL Lymph # (Auto) 1.48 (0.90-2.90) K/uL [place] # (Auto) 0.50 (0.00-0.90) K/UL Eos # (Auto) 0.19 (0.00-0.50) K/uL Baso # (Auto) 0.03 (0.00-0.30) K/uL Abs Immat Gran (auto) 0.03 (0.00-0.30) K/uL Imm/Tot Granulo (auto) 0.6 % Sodium 135 (135-149) mmol/L Potassium 3.6 (3.6-5.1) mmol/L Chloride 103 (96-114) mmol/L Carbon Dioxide 26 (20-32) mmol/L Anion Gap 6 L (7-15) mEq/L BUN 22 (7-30) mg/dL Creatinine 0.8 (0.5-1.5) mg/dL Estimated Creat Clear 49.14 Estimated GFR 75 ml/min Glucose 104 (60-115) mg/dL Calcium 9.2 (8.4-10.6) mg/dL Magnesium 2.0 (1.5-2.6) mg/dL Total Bilirubin 0.3 (0.1-1.5) mg/dL AST 41 H (12-35) U/L ALT 34 (4-35) U/L Alkaline Phosphatase 72 (40-150) U/L Troponin I < 0.01 (0.01-0.04) ng/mL NT-Pro-B Natriuret Pep 328 H (See Note) pg/mL Total Protein 8.1 (6.0-8.3) g/dL Albumin 4.1 (3.3-5.0) g/dL POC Troponin I 0.00 L (0.01-0.04) ng/ml Imaging Data Chest x-ray: Attestation: I have reviewed the pertinent imaging results. My impression: Definite cardiomegaly, do not appreciate any fluid overload at this point. Radiologist's impression: Patient: AROLDO SANTANA Facility:?[facility] Patient ID:?[id number] Site Patient ID:?[id number]. Site :?[id number] Study:?XRay-Chest portable-08/29/2025 5:30:18 PM Ordering Physician:?Khanh Zaman Final Report: INDICATION: Tachycardia TECHNIQUE: Chest radiograph 1 view COMPARISON: None FINDINGS: Mediastinum: Previous median sternotomy and coronary artery bypass grafting (CABG) noted. The central pulmonary arteries are near the upper limits of normal in size. Moderate cardiomegaly is noted. Lung: Both lungs are unremarkable in appearance. No sign of pleural effusion seen. No pneumothorax is identified. Bone and Soft tissue: Unremarkable for age. IMPRESSION: 1. Moderate cardiomegaly is noted. Dictated by Benjamin Salgado MD @ 08/29/2025 5:47:08 PM Dictated by: Benjamin Salgado MD @ 08/29/2025 17:47:10 (Electronic Signature) ECG Data Attestation: I personally reviewed and interpreted this ECG as follows: (Probable atrial fibrillation with RVR.) ECG interpretation date: 08/29/25 ECG interpretation time: 17:03 Discharge Plan Discharge Clinical Impression: Atrial fibrillation Qualifiers: Atrial fibrillation type: unspecified Qualified Code(s): I48.91 - Unspecified atrial fibrillation Patient Disposition: Home, Self-Care Condition: Stable Instructions: A-fib (Atrial Fibrillation) (ED) Additional Instructions: Need to follow-up tomorrow for your ablation and pacemaker at [facility] as planned. If you are having further issues overnight, you can she used to return to our ER or go down to [facility]. Activity Level: No Restrictions Prescriptions: No Action No Known Home Medications Follow Up/Referrals: Provider,Not a Local [Primary Care Provider, Family Practice] Stand Alone Forms: [employer] Info Instructions
--- NOTE | 2025-08-29 17:15 | CRLHL7_ITS ---
For Patients: As a result of the Cures Act, medical imaging exams and procedure reports are released immediately into your electronic medical record. You may view this report before your referring provider. If you have questions, please contact your health care provider. INDICATION: Tachycardia TECHNIQUE: Chest radiograph 1 view COMPARISON: None FINDINGS: Mediastinum: Previous median sternotomy and coronary artery bypass grafting (CABG) noted. The central pulmonary arteries are near the upper limits of normal in size. Moderate cardiomegaly is noted. Lung: Both lungs are unremarkable in appearance. No sign of pleural effusion seen. No pneumothorax is identified. Bone and Soft tissue: Unremarkable for age. IMPRESSION: 1. Moderate cardiomegaly is noted. Dictated by Benjamin Salgado MD @ 08/29/2025 5:47:08 PM Dictated by: Benjamin Salgado MD @ 08/29/2025 17:47:10 (Electronically Signed)
[2025-08-29 17:30] LABS: Troponin, Point-of-Care* 0.00 ng/ml (0.01-0.04)
[2025-08-29 17:47] LABS: Hematocrit* 41.1 % (33.0-51.0); Hemoglobin* 13.2 gm/dL (12.0-16.0); Immature Granulocytes Abs Auto 0.03 K/uL (0.00-0.30); Immature Granulocytes Pct Auto 0.6 %; Lymphocytes Absolute Auto 1.48 K/uL (0.90-2.90); Mean Corpuscular HGB Conc 32 gm/dL (32-36); Mean Corpuscular Hemoglobin 30 pg (26-34); Mean Corpuscular Volume 94 fL (80-100); RDW Coefficient of Variation % 13.3 % (11.5-15.5); Red Blood Count* 4.36 m/uL (4.00-5.20); White Blood Count* 4.68 K/uL (4.50-11.00)
[2025-08-29 17:49] LABS: Albumin* 4.1 g/dL (3.3-5.0); Chloride* 103 mmol/L (96-114); Slide Review Reflex No; Sodium* 135 mmol/L (135-149)
[2025-08-29 17:50] LABS: Potassium* 3.6 mmol/L (3.6-5.1)
[2025-08-29 17:52] LABS: Alanine Aminotransferase* 34 U/L (4-35); Alkaline Phosphatase* 72 U/L (40-150); Anion Gap 6 mEq/L (7-15); Aspartate Amino Transferase* 41 U/L (12-35); Bilirubin Total* 0.3 mg/dL (0.1-1.5); Blood Urea Nitrogen* 22 mg/dL (7-30); Carbon Dioxide* 26 mmol/L (20-32); Creatinine* 0.8 mg/dL (0.5-1.5); Est. Creatinine Clearance* 49.14; Estimated Glomerular Filt Rate 75 ml/min; Total Protein* 8.1 g/dL (6.0-8.3)
[2025-08-29 17:53] LABS: Calcium* 9.2 mg/dL (8.4-10.6); Glucose* 104 mg/dL (60-115)
[2025-08-29 18:17] LABS: NT Pro B Type NatriureticPept* 328 pg/mL (See Note)
== END 2025-08-29 18:38 | disposition home or self-care (01) ==
PROVIDERS: Emergency Provider Family Medicine
DX: I48.91 Unspecified atrial fibrillation (principal); R07.89 Other chest pain
CPT/HCPCS: 36415; 71045; 80053; 83735; 83880; 84484; 85025; 93005; 94761; 99284; 99285

== ENCOUNTER 2025-09-02 16:19 | Emergency (ER) | payer MEDICARE, SELFPAY ==
--- OUTSIDE RECORDS SUMMARY | 2025-07-21 08:46 | XMS_ITS | Encounter Summary ---
Author Organization [facility] Address [address] [place] [address] Care Team Providers Care Consumer Loan Officer Name Role Phone Jay Guzman M.D. [facility] Reason for Referral * Outpatient (Routine) - Closed Specialty Diagnoses / Procedures Referred By Contac t Referred To Contact Diagnoses Atrial Fibrillation Other Persistent (HCC) Procedures ECG 12 Lead Jorge Ordaz M.D. [address] [place] [address] Phone: tel: fax: [facility] Referral ID Status Reason Start Date Expiration Date Visits Re quested Visits Authorized [id number] Closed 12/23/2024 03/25/2026 1 1 Reason for Visit * Outpatient (Routine) - Closed Specialty Diagnoses / Procedures Referred By Osvaldo keith Referred To Contact Diagnoses Atrial Fibrillation Other Persistent (HCC) Procedures ECG 12 Lead Jorge Ordaz M.D. [address] [place] [address] Phone: tel: fax: [facility] Region Referral ID Status Reason Start Date Expiration Date Visits Re quested Visits Authorized [id number] Closed 12/23/2024 03/25/2026 1 1 Encounter Details Date Type Department Care Team (Latest Contact Info) Description 07/21/2025 8:46 AM CDT - 07/21/2025 11:59 PM CDT Hospital Encounter Department of Laboratory Medicine in [place], [place] [address] [place] [address] Jorge Ordaz M.D. [address] [facility] [place] [phone] Atrial Fibrillation Other Persistent (HCC) Discharge Disposition: Home or Self Care Social History Tobacco Use Types Packs/Day Years Used Date Smoking Tobacco: Never Passive Smoke Exposure: Past Smokeless Tobacco: Never Comments:Father smoked until 1956 Alcohol Use Standard Drinks/Week Comments Not Currently 0 (1 standard drink = 0.6 oz pure alcohol) Not used since 1976 - hindu reasons Humiliation, Afraid, Rape, and Kick questionnair [...] things needed for daily living? No 07/14/2025 [facility] Utilities Answer Date Recorded In the [...] PM CDT Legal Sex Female 6:20 AM COPY COORDINATOR Gender Identity Female 08/18/2021 8:27 PM CDT [...] Apply twice weekly. 30 g 3 01/02/2025 terbinafine (LamISIL) 250 mg tabletIndication s:Onychomycosis Take [...] Take 1 capsule by mouth daily. vitamins A,C,I-bpsr-txosy r (PRESERVISION AREDS) 7,160 Units-113 mg-100 Units per tablet Take 1 tablet by mouth daily. phytonadione, vitamin K1, (Mephyton) 100 mcg tablet Take 100 mcg by mouth once. documented as of this encounter Plan of Treatment Upcoming Encounters Date Type Department Care Team (Late st Contact Info) Description 09/06/2025 10:20 AM CDT Office Visit Department of Family Medicine, [facility], in [place], [place] [address] [place] [phone] Jay Guzman M.B.B.S., M.D. [address] [place] [phone] 10/24/2025 1:00 PM COPY COORDINATOR Appointment Department of Cardiovascular Diseases in [place], [place] [address], [place] [phone] Jorge Ordaz M.D. [address] [place] [phone] documented as of this encounter Procedures Procedure Name Priority Date/Time Associated Diagnosis Comments ECG Routine 07/21/2025 9:06 AM CDT Atrial Fibrillation Other Persistent (HCC) documented in this encounter Results * ECG 12 Lead (07/21/2025 9:06 AM CDT) Ventricular Rate ECG/Min 129 BPM MUSE QRSD Interval 100 ms MUSE QT Interval 326 ms MUSE QTC Interval 477 ms MUSE R [place] -74 degrees MUSE T Wave [place] 93 degrees MUSE 07/21/2025 9:06 AM CDT [...] Diagnoses Diagnosis Atrial Fibrillation Other Persistent (HCC) documented in this encounter Additional Health Concerns Assessment Noted Time PHQ-9 Depression Total Score: 0 12/02/19 25 3:00 PM COPY COORDINATOR A fall risk assessment has been complete d for the patient 09/12/2022 10:09 AM CDT documented as of this encounter Care Teams Consumer Loan Officer Relationship Specialty Start Date End Date Jay Guzman M.B.B.S., [place] [address] [place] [address] [place] [address] PCP - General Family Medicine 09/20/20 documented as of this encounter
--- OUTSIDE RECORDS SUMMARY | 2025-07-21 09:30 | XMS_ITS | Encounter Summary ---
Author Organization [facility] Address [address] [place] [address] Care Team Providers Care Kiln Labourer Name Role Phone Jay Guzman M.D. Primary Care [facility] Reason for Referral * Cardiovascular-Diagnostic (Routine) - Authorized Specialty Diagnoses / Procedures Referred By Contcorrine t Referred To Contact Diagnoses Atrial Fibrillation Longstanding Persistent (HCC) Regurgitation Mitral Procedures Echo Transthoracic (TTE) Echo Transthoracic (TTE) Jorge Ordaz M.D. [address] [place] [address] Phone: tel: fax: [facility] Region Referral ID Status Reason Start Date Expiration Date V isits Requested Visits Authorized [id number] Authorized 07/21/2025 10/21/2026 1 1 * Outpatient (Routine) - Authorized Specialty Diagnoses / Procedures Referred By Contac t Referred To Contact Diagnoses Atrial Fibrillation Longstanding Persistent (HCC) Regurgitation Mitral Procedures ECG 12 Lead [place] EKG 12 LEAD W I&R Jorge Ordaz M.D. [address] [place] [address] Phone: tel: fax: [facility] Referral ID Status Reason Start Date Expiration Date V isits Requested Visits Authorized [id number] Authorized 07/21/2025 10/21/2026 1 1 * Outpatient (Routine) - Authorized Specialty Diagnoses / Procedures Referred By Osvaldo keith Referred To Contact Cardiovascular Disease Jorge Ordaz M.D. [address] [place] [address] Phone: tel: fax: [facility] Region Referral ID Status Reason Start Date Expiration Date V isits Requested Visits Authorized [id number] Authorized 07/21/2025 01/20/2027 1 1 Reason for Visit * Reason Comments Follow-up * Outpatient (Routine) - Closed Specialty Diagnoses / Procedures Referred By Osvaldo keith Referred To Contact Cardiovascular Disease Jorge Ordaz M.D. [address] [place] [address] Phone: tel: fax: [facility] Region Referral ID Status Reason Start Date Expiration Date Visits Re quested Visits Authorized [id number] Closed 12/23/2024 06/24/2026 1 1 Encounter Details Date Type Department Care Team (Latest Contact Info) Description 07/21/2025 9:30 AM CDT Office Visit [facility] [place] [place] [address] [place] [id number] Jorge Ordaz M.D. [address] [place] [phone] Atrial Fibrillation Longstanding Persistent (HCC) (Primary Dx); Regurgitation Mitral Social History Tobacco Use Types Packs/Day Years Used Date Smoking Tobacco: Never Passive Smoke Exposure: Past Smokeless Tobacco: Never Comments:Father smoked until 1956 Alcohol Use Standard Drinks/Week Comments Not Currently 0 (1 standard drink = 0.6 oz pure alcohol) Not used since 1976 - jehovah's witness reasons Humiliation, Afraid, Rape, and Kick questionnair [...] things needed for daily living? No 07/14/2025 [facility] Utilities Answer Date Recorded In the past 12 months has [facility] electric, gas, oil, or water company threatened to shut off services in your home? No 07/14/2025 Depression Answer Date Recor ded PHQ-9 Total Score (max 27) 0 12/02 Housing Stability Answer Date Recorded What is your living situation today? I have a [facility] place to live 07/14/2025 Education Answer Date Recorded What is the highest level of school you have completed or the highest degree you have received? 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 AM [employer] Gender Identity Female 08/18/2021 8:27 PM CDT Sexual Orientation Not on file Occupation Industry Job Start Date Job End Date [employer] Not on file Not on file Not on file Not on file Not on file Not on file Not on file documented as of this encounter Last Filed Vital Signs Vital Sign Reading Time Taken Comments Blood Pressure 153/81 07/21/2025 9:34 AM CDT avg of 3 Pulse 70 07/21/2025 9:34 AM CDT avg o f 3 Temperature - - Respiratory Rate - - Oxygen Saturation 99% 07/21/2025 9:25 AM CDT Inhaled Oxygen Concentration - - Weight 69.4 kg (153 lb) 07/21/2025 9:25 AM CDT Height - - Body Mass Index 22.46 01/23/2025 2:42 PM CDT documented in this encounter Progress Notes * Jorge Ordaz M.D. - 07/21/2025 9:30 AM CDT CARDIOLOGY CONSULTATION Location[facility] Consultation Indication: Follow-up Referring Provider: Jorge Ordaz M.D. PROBLEM LIST: Atrial fibrillation, persistent. Supraventricular tachycardia S/P pulmonary vein isolation and typical and atypical flutter ablation on 11/29/2024 with breakthrough recurrent atrial flutter/fibrillation S/P dofetilide loading and FARAZ cardioversion 04/22/2024 Seen by EPS 03/2024; 01/[address] Morales 04/25/2016, doubtful that AF ablation or antiarrhythmic medications would give her symptomatic benefit; AV node ablation and pacemaker placement recommended S/P MAZE procedure with cryotherapy and EMILIE resection 09/2015 Previously on long-term anticoagulation. [id number] 3 (4 if heart failure, 5 if hypertension) Prescribe apixaban to be utilized for 1 month after cardioversion on 04/2024. Off anticoagulation again. Aware of risks S/P EMILIE amputation but severe biatrial enlargement S/P mitral (32-mm CarboMedics band) and tricuspid valve repair (26-mm CarboMedics), 10/15/2015 Left atrial appendage amputation and maze performed at that time. Heart failure with reduced systolic function; previously recovered. Tachycardia- induced component suspected LVEF 57% TTE 08/2024, 40-45% FARAZ 04/2024 (AFib 114 BPM); 50-55% on TTE 03/2024 (AF 66 BPM) 54% 05/2023...54% 09/2017; 46% 02/2017 Chronic lower extremity edema Chest discomfort; no recurrence SE 05/2019 no ischemia at 70% age predicted maximal HR Coronary angiography 09/2015 normal coronary arteries Borderline ascending aortic dilatation 40 mm, 08/2024-05/2023 Elevated blood pressure; query hypertension Hyperlipidemia. Pooled 10-year risk score 22% Obstructive sleep apnea, mild position susceptible Seen by sleep Medicine 06/2024; not interested in CPAP therapy Prior history of thrombocytopenia Meningeoma, CT 11/2024 Possible inferior branch retinal artery occlusion. ASSESSMENT/ PLAN Atrial Fibrillation Longstanding Persistent (HCC) Orders: ECG 12 Lead; Future Echo Transthoracic (TTE); Future Regurgitation Mitral Orders: ECG 12 Lead; Future Echo Transthoracic (TTE); Future Atrial Fibrillation Chronic atrial fibrillation with episodes of rapid ventricular response, minimally symptomatic. Shehas been managing without medication, experiencing improvement in symptoms such as edema and urinary incontinence. However, the heart rate remains elevated at times, causing symptoms such as muscle weakness and impaired circulation, per patient's report, when it reaches 180 bpm. She is exploring lifestyle modifications to manage the condition but is aware of the potential risks of stroke and heart failure. Discussed the potential benefits of AV node ablation with pacemaker placement, which could prevent the development of tachycardia induced cardiomyopathy and potentially improve symptoms(by avoiding extremely elevated heart rates). Her understanding is that she is not as good of a candidate for repeat atrial fibrillation ablation, which I agree. She is still considering the option of AV nicholas ablation with pacemaker placement and should reach out to electrophysiology if she decides to proceed with that route (so that is scheduling in can be facilitated). See my previous note from December 2024 for additional details, including recommendations regarding anticoagulation and antibiotic prophylaxis. - Consider AV node ablation with pacemaker placement, particularly in case of persistently elevatedheart rates as that would put the patient is risk for tachycardia-induced cardiomyopathy - Order echocardiogram with agitated saline study in 3-6 months to assess heart function and check for potential PFO (possibly iatrogenic post atrial fibrillation ablation). This may be done sooner in case of worsening symptoms and/or heart rate control - Prescribe diltiazem or verapamil if needed for heart rate control - Follow up in one year with ECG, sooner if symptoms worsen Hypertension Blood pressure tends to be elevated, especially when active. She is aware of the risk of stroke associated with uncontrolled hypertension. Discussed the importance of monitoring at home and potentialneed for management if consistently elevated. The patient is to reach out to us in case of persistent elevated blood pressure above 130/80 mmHg. - Monitor blood pressure regularly - Discuss potential need for blood pressure management if consistently elevated Nutritional Concerns Recent dietary changes led to diarrhea and loose stools. She is working on finding a suitable diet that does not lead to weight loss, as previous nutritional advice was not appropriate for her needs. - Consult with a mailroom clerk to develop a suitable diet plan Advance Care Planning The patient has an advanced care plan on file. PLAN: #1 Atrial Fibrillation Longstanding Persistent (HCC) Overview: Atrial Fibrillation #2 Regurgitation Mitral Other orders - Cardiovascular Disease office visit (clinic) [facility]; General - Cardiovascular Disease office visit (clinic) [facility]; General; Future; Expected date: 07/21/2026 - ECG 12 Lead; Future; Expected date: 07/21/2026 - Echo Transthoracic (TTE); Future; Expected date: 10/20/2025 Medications Discontinued During This Encounter Medication Reason biotin 1 mg capsule - Follow up with Cardiology in 12 months or call us sooner in case of problems or concerns. The patient expressed understanding of the information discussed during the visit today and agreement with the plan. DATE OF VISIT: 07/21/2025 SUBJECTIVE CHIEF COMPLAINT / REASON FOR VISIT Christie Carlisle is a 80 y.o. female who presents for evaluation of Follow-up. The patient verbally consented to an audio recording of their visit to assist with the completion of documentation. History of Present Illness Mrs. Christie Carlisle is a 80 year old female with atrial fibrillation who presents for follow-up regarding her heart rate management. She presents unaccompanied by family. She has not been on any heart rate medications since January and feels that her symptoms have improved. Edema and urinary incontinence have also improved. However, she experiences tachycardia if she allows herself to get hungry. Over the past six days, her heart rate has been elevated, reaching a high of 160 bpm and a low of 111 bpm, with occasional drops to 73 bpm. She notes that when her heart rate is around 140 bpm, she does not experience significant symptoms, but at 180 bpm, she feels muscleweakness and impaired circulation. No chest pain or shortness of breath at these times. In June, her Lingodadia mobile device indicated a steady rhythm, although it was not sinus rhythm. She recently tried a mailroom clerk's program but found it unsuitable as it was geared towards weight loss, which she does not need. This dietary change led to diarrhea and loose stools. She discovered that avoiding corn improved bleeding on her hands. Her blood pressure tends to be higher when she is active but is fine when she is relaxed. She has adirect primary care provider who she can see easily and has had a recent EKG done by her. She has previously been on medications such as verapamil, dofetilide, and diltiazem, but they were not effective in managing her symptoms and cause side effects, particularly GI in nature. Record review, since our last visit on December 2024: Seen by electrophysiology on January 2025. She felt okay with the current medication regimen. Options for management reviewed and she decided to think about the options. PCP reached out to us on April 2025 for curbside consultation. Follow up with Cardiology recommended. 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 There is no pulmonary vein stenosis. Postoperative changes left atrial appendage amputation. Echocardiogram August 2024: 1. Transthoracic outreach echo interpretation. 2. Status post Carbomedics mitral valve annuloplasty (15-OCT-2015), diastolic mean Doppler gradient3 mmHg . Mild mitral regurgitation. 3. Status post Carbomedics tricuspid valve annuloplasty (15-OCT-2015), diastolic mean Doppler gradient 2 mmHg Mild (possibly [id number]) regurgitation. 4. Mild-moderately enlarged right ventricular chamber size, mildly reduced systolic function, estimated right ventricular systolic pressure 46 mmHg (right atrial pressure of 15 mmHg). 5. Normal inferior vena cava size with reduced inspiratory collapse (<50%) , suggesting increased right atrial pressure. 6. Borderline enlarged left ventricular chamber size, calculated 2-D linear ejection fraction 57%. 7. Abnormal ventricular septal motion - post-operative without other regional wall motion abnormalities. 8. Indeterminate left ventricular filling pressure. 9. Severely enlarged left atrial size. 10. Borderline enlarged mid ascending aorta diameter of 40 mm , upper limit of normal for age, sex and BSA is 39 mm. Trileaflet aortic valve with no functional abnormalities. 11. No pericardial effusion. 12. Compared to the report of 04/13/2024 the following changes have occurred: slightly improved left ventricular contractility (markedly improved from FARAZ 04/2024); increase estimated right ventriclesystolic pressure and right atrial pressure. Side by side comparison of images performed. Faraz cardioversion 04/22/2024: 1. PRE-CARDIOVERSION FARAZ: 2. No intracardiac thrombus identified. No evidence of residual left atrial appendage stump. 3. Status post mitral valve repair with a 32 mm CarboMedics band, tricuspid repair with a 26 mm CarboMedics band, and left atrial appendage amputation (15-OCT-2015). 4. Mitral valve diastolic mean Doppler gradient 4 mmHg (heart rate 103 BPM). Mild anteriorly-directed mitral regurgitation. 5. Mild-moderate tricuspid valve regurgitation (jerardo-septally directed). ERO 0.37 cm2; Regurgitant volume 22 ml. 6. Estimated left ventricular ejection fraction range 40% - 45%. Moderately reduced right ventricular systolic function. 7. Moderate immobile (atheroma 3-5 mm thickness without ulceration) atherosclerosis of the descending thoracic aorta. 8. Intact atrial septum without atrial level shunt. Echocardiogram 04/13/2024: 1. Transthoracic outreach echo interpretation. 2. Status post Carbomedics mitral valve annuloplasty (15-OCT-2015), diastolic mean Doppler gradient5 mmHg . Trivial mitral regurgitation (eccentric jet, anteriorly directed). 3. Status post Carbomedics tricuspid valve annuloplasty (15-OCT-2015), diastolic mean Doppler gradient 3 mmHg . Mild tricuspid regurgitation, eccentric jet. 4. Mild-moderately enlarged right ventricular chamber size, mildly reduced systolic function, estimated right ventricular systolic pressure 31 mmHg (right atrial pressure of 10 mmHg). 5. Mildly enlarged left ventricular chamber size, no regional wall motion abnormalities, estimated ejection fraction range 50% - 55%. 6. Abnormal ventricular septal motion - post-operative. 7. Severe bi-atrial enlargement. 8. Borderline enlarged mid ascending aorta diameter of 39 mm, upper limit of normal for age, sex and BSA is 39 mm. 9. No pericardial effusion. 10. Compared to the report of 05/27/2023 no significant change has occurred. Side by side comparison of images performed. Holter monitor 03/10/2024: 1. The basic rhythm was sinus rhythm with first degree AV delay. Intermittent sinus arrhythmia was seen. The total analyzed time was 19h 55m. The heart rate varied from 46 to 94 bpm. The average HR was 62 bpm. 6 pauses were seen, the longest being 2.17s in duration. 2. Premature ventricular complexes were noted singly, fused, in bigeminal and trigeminal patterns, in pairs, and in three 3 beat ventricular runs with a maximum rate of 83 bpm. There were 5,889 PVCs recorded with a PVC burden of 8%. 3. Premature supraventricular complexes were noted singly, non-conducted, in bigeminal patterns, inpairs, and in twenty-three 3-5 beat atrial runs with a maximum rate of 161 bpm. There were 3,638 PACs recorded with a PAC burden of 5%. 4. No symptomatic events were noted. Echocardiogram May 2023: 1. Transthoracic outreach echo interpretation. 2. Status post CarboMedics mitral valve annuloplasty (15-OCT-2015), diastolic mean Doppler gradient4 mmHg . Trivial mitral regurgitation. 3. Status post CarboMedics tricuspid valve annuloplasty (15-OCT-2015). Diastolic mean Doppler gradient 2 mmHg. [id number] tricuspid regurgitation. 4. Mild-moderately enlarged right ventricular chamber size, borderline reduced systolic function, estimated right ventricular systolic pressure 36 mmHg (right atrial pressure of 10 mmHg). 5. Normal left ventricular chamber size, no regional wall motion abnormalities, calculated 2-D linear ejection fraction 54%. 6. Normal left ventricular geometry, indeterminate filling pressure. 7. Severe bi-atrial enlargement. 8. Borderline enlarged mid ascending aorta diameter of 40 mm, upper limit of normal for age, sex and BSA is 39 mm . Trileaflet aortic valve with no functional abnormalities. 9. No pericardial effusion. 10. Compared to the report of 02/01/2020 the following changes have occurred: increased tricuspid regurgitation; increased right ventricular systolic pressure; increased aortic root diameter. Side byside comparison of images performed. Holter monitor March 2023: 1. The basic rhythm was sinus. At times, probable junctional rhythm was seen (P waves were hard to identify). The total analyzed time was 23h 36m. The heart rate varied from 68 to 185 bpm. The average HR was 97 bpm. Probable blocked PACs and junctional escape beats were noted. There is a sustained run noted which corelates with symptoms likely consistent with an SVT 2. Premature ventricular complexes were noted singly, paired, in trigeminy and in one 3 beat ventricular run, rate of 144 bpm. There were 7,202 PVCs recorded with a PVC burden of 5%. 3. Premature supraventricular complexes were noted singly, paired, in bigeminy and in one 3 beat atrial run, rate of 164 bpm. There were 2,716 PACs recorded with a PAC burden of 2%. 4. A total of 2 symptomatic events were noted, which included palpitations. The heart rate variedfrom 82 to 183 bpm. Single VPCs were noted during these times. Echocardiogram January 2020: 1. Normal left ventricular chamber size. Calculated ejection fraction 57%. Abnormal septal motion (postoperative). Otherwise, no regional wall motion abnormalities. 2. Moderately enlarged right ventricular chamber size by visual estimate. Normal systolic function.Estimated right ventricle systolic pressure 25 mmHg. 3. Severe bi-atrial enlargement. Left atrial volume index 51 ml/m^2. 4. Status post CarboMedics mitral valve anuloplasty (15-OCT-2015). 5. Mitral valve diastolic mean Doppler gradient 4 mmHg (heart rate 67 BPM). Trivial mitral regurgitation. 6. Status post CarboMedics tricuspid valve anuloplasty (15-OCT-2015). 7. Tricuspid valve diastolic mean Doppler gradient 2 mmHg (heart rate 68 BPM). Trivial tricuspid regurgitation. 8. Normal inferior vena cava size with normal inspiratory collapse (>50%). 9. No pericardial effusion. 10. Compared to the report of 05/25/2019 no significant change has occurred. Side by side comparison of images performed. Holter monitor October 2019: 1. The basic rhythm was sinus with periods of atrial fibrillation-flutter and junctional rhythm. Ectopic atrial rhythm was also noted. The heart rate varied from 49 bpm (sinus) to 160 bpm (atrial fib-flutter). The maximum sinus rhythm was 90 bpm. The average heart rate was 74 bpm. Baseline artifactand small P- waves made analysis difficult at times. Rhythm changes were also hard to identify. 2. Frequent VPCs occurred singly, paired, once in trigeminy and in a 3-beat run of accelerated idioventricular rhythm, rate 79 bpm. Rare ventricular escape beats were found. 3. Frequent SVPCs occurred singly, paired and in runs of supraventricular tachycardia. (SVT runs could possibly be periods of atrial fib-flutter). The longest SVT run was 42-beats in duration and themaximum SVT rate was 165 bpm. Rare premature junction beats were found. 4. ST depression did not exceed preset criteria. 5. The patient stated the symptoms no tachycardia and regular tachycardia in her diary with therhythm strips showed sinus rhythm and atrial fib-flutter. The heart rate varied from 74 to 122 bpm. Stress echocardiogram May 2019: 1. Exercise echocardiogram negative for myocardial ischemia. 2. Failure to achieve target heart rate could reduce the sensitivity of the test (images acquired at less than 100 BPM). 3. The patient's exercise capacity was below average (5.6 Mets, 78% FAC, 70% age-predicted maximal HR). 4. The test was terminated due to dyspnea and leg distress. No angina reported. The patient stated inability to continue exercise. 5. Ejection fraction response from 60 % at rest to 65 % at peak stress. 6. Left ventricular end-systolic volume decreased with stress. 7. No regional wall motion abnormalities with stress. 8. Ventricular bigeminy and SVT present at stress. Decreased ventricular ectopy near peak exercise,recurring upon recovery. current medications[1] Allergies Allergen Reactions Milk Other (see comments) Tachycardia and activates colitis Proparacaine Other (see comments) Nausea and dizzy Amiodarone Other (see comments) Skin issues Amoxicillin-Pot Clavulanate Other (see comments) Cerner listed no reactions Cephalexin Other (see comments) Caused fungal infections of nails, skin Cyclopentolate Other (see comments) Nausea, dizzy Digoxin Shortness of breath (Reselect Reaction) CVS symptoms, Memory lapses, Confusion, Light sensitivity Levofloxacin Other (see comments) Cerner listed no reactions Naproxen Other (see comments) visual Wheat Other (see comments) Autoimmune Thrombocytopenia REVIEW OF SYSTEMS Respiratory: - Negative for shortness of breath. Cardiovascular: - Negative for chest pain, pressure or tightness, swelling in the legs or feet and rapid or fluttering heart beat. All other systems reviewed and are negative. The following portions of the patient's history were reviewed and updated as appropriate: allergies, current medications, family history, medical history, social history, surgical history and problemlist. OBJECTIVE VITAL SIGNS BP 153/81 (BP Location: Left arm, Patient Position: Sitting, Cuff Size: Regular) Comment: avg of 3 Pulse 70 Comment: avg of 3 Wt 69.4 kg SpO2 99% BMI 22.46 kg/m?? Vitals: 07/21/25 0925 07/21/25 0934 BP: (!) 165/79 153/81 BP Location: Left arm Left arm Patient Position: Sitting Sitting Cuff Size: Regular Regular Pulse: 69 70 SpO2: 99% Weight: 69.4 kg BP Readings from Last 3 Encounters: 07/21/25 153/81 04/25/25 145/75 01/23/25 (!) 186/89 Wt Readings from Last 3 Encounters: 07/21/25 69.4 kg 04/25/25 70.4 kg 01/23/25 69.3 kg PHYSICAL EXAMINATION General: Patient is awake, alert, oriented x3. No acute distress. Chest/Lungs: No chest deformity. Normal respiratory effort. Good air entry bilaterally. No adventitious sounds. Cardiovascular: Tachycardic with an irregular rhythm. Upper Extremities: No cyanosis. DIAGNOSTICS I have reviewed the patient's current laboratory, imaging, and other diagnostic studies. Pertinent laboratory studies have been reviewed and are notable for: Hospital Outpatient Visit on 07/21/2025 Component Date Value Ventricular Rate ECG/Min 07/21/2025 129 QRSD Interval 07/21/2025 100 QT Interval 07/21/2025 326 QTC Interval 07/21/2025 477 R Dennison 07/21/2025 -74 T Wave Dennison 07/21/2025 93 Lab Results Component Value Date CREATININE 0.82 01/23/2025 BUN 14 01/23/2025 NA 145 01/23/2025 CL 109 (H) 01/23/2025 CO2 21 11/08/2021 Lab Results Component Value Date ALT 29 11/28/2024 Lab Results Component Value Date TSH 2.1 03/16/2024 Lab Results Component Value Date WBC 5.1 12/12/2024 HGB 12.4 12/12/2024 HCT 37.9 12/12/2024 MCV 95.2 12/12/2024 PLT 279 12/12/2024 Lab Results Component Value Date INR 1.2 01/23/2016 INR 1.3 01/15/2016 INR 1.5 01/08/2016 PT 18.4 (H) 11/23/2015 PT 18.5 (H) 11/22/2015 PT 20.6 (H) 11/20/2015 ECG from the last 30 days: ECG 12 Lead Result Date: 07/21/2025 Atrial fibrillation with rapid ventricular response Left anterior fascicular block Incomplete right bundle branch block Nonspecific ST and T wave abnormality When compared with ECG of 23-Jan-2025 12:19, Vent. rate has increased by 60 bpm Incomplete right bundle branch block is now present Atrial fibrillation is no longer with premature ventricular or aberrantly conducted complexes Reviewed by MONALISA Haro Imaging last 30 days: No results found. Study Date 03/16/24 DX Chest AP or PA and Lateral 2 Views Narrative EXAM: DX CHEST AP OR PA AND LATERAL 2 VIEWS Impression Comparison 11/20/2023. Median sternotomy wires are aligned. 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 No pleural effusion, pneumothorax or focal consolidation. Heart size moderately enlarged and unchanged. The 10-year ASCVD risk score (Frankie RING, et al., 2019) is: 30.4% Values used to calculate the score: Age: 80 years Clincally relevant sex: Female Is Non- : No Diabetic: No Tobacco smoker: No Systolic Blood Pressure: 153 mmHg Is BP treated: No HDL Cholesterol: 73 mg/dL Total Cholesterol: 218 mg/dL IMPRESSION/REPORT/PLAN See above. Jorge Ordaz M.D. [1] Current Outpatient Medications Medication Sig ASCORBIC ACID, VITAMIN C, ORAL Take 1 tablet by mouth as needed. clobetasoL (Temovate) 0.05 % ointment Apply 1 Application topically 2 (two) times a day. Apply to perianal skin twice daily for 4-6 weeks. If symptoms improve can then switch to twice daily. (Patienttaking differently: Apply 1 Application topically daily. Apply to perianal skin once daily, three times a week.) co-enzyme Q-10 (Co Q-10) 100 mg capsule Take 100 mg by mouth daily. cyanocobalamin (vitamin B-12) 250 mcg tablet Take 250 mcg by mouth once a week. Once a week (Patient taking differently: Take 250 mcg by mouth 2 (two) times a week. Once a week) estradioL (Estrace) 0.1 mg/g (0.01%) vaginal cream Insert 2 g into the vagina at bedtime. Apply twice weekly. phytonadione, vitamin K1, (Mephyton) 100 mcg tablet Take 100 mcg by mouth once. UNABLE TO FIND Med Name: AlgaeCal - calcium, magnesium, boron, vitamin K1, D, & C VITAMIN A ORAL Take 1 capsule by mouth 2 (two) times a week. vitamin K2 100 mcg capsule Take 1 capsule by mouth daily. vitamins A,C,Z-cjte-djsanp (PRESERVISION AREDS) 7,160 Units-113 mg-100 Units per tablet Take 1 tablet by mouth daily. terbinafine (LamISIL) 250 mg tablet Take 1 tablet (250 mg total) by mouth daily. (Patient not taking: Reported on 07/21/2025) UNABLE TO FIND Take 1 each by mouth once daily. Med Name: calm (magnesium citrate) 1/2 tsp (Patientnot taking: Reported on 07/21/2025) UNABLE TO FIND Take 1 each by mouth daily. Med Name: Calm with calcium (magnesium citrate, calcium,potassium and boron) 1 tsp daily (Patient not taking: Reported on 07/21/2025) documented in this encounter Miscellaneous Notes * Assessment & Plan Note - Jorge Ordaz M.D. - 07/21/2025 9:30 AM CDT Associated Problem(s): Atrial Fibrillation Longstanding Persistent (HCC) Orders: ECG 12 Lead; Future Echo Transthoracic (TTE); Future * Assessment & Plan Note - Jorge Ordaz M.D. - 07/21/2025 9:30 AM CDT Associated Problem(s): Regurgitation Mitral Orders: ECG 12 Lead; Future Echo Transthoracic (TTE); Future documented in this encounter Plan of Treatment Upcoming Encounters Date Type Department Care Team (Late st Contact Info) Description 09/06/2025 10:20 AM CDT Office Visit Department of Family Medicine, [facility], in [address] [phone] WarJay tellez M.B.B.S., [place] [address] [facility] [place] [address] 10/24/2025 1:00 PM BLAST FURNACE CHECKER Appointment Department of Cardiovascular Diseases in [place], [place] [address] [place] [phone] Jorge Ordaz M.D. [address] [place] [address] Scheduled Orders Name Type Priority Associated Diagnoses Orde r Schedule ECG 12 Lead ECG Routine Atrial Fibrillation Longstanding Persistent (HCC) Regurgitation Mitral Expected: 07/21/2026, Expires: 10/20/2026 Echo Transthoracic (TTE) Echocardiography Routine Atrial Fibrillation Longstanding Persistent (HCC) Regurgitation Mitral Expected: 10/20/2025, Expires: 10/20/2026 Scheduled Referrals Name Type Priority Associated Diagnoses Order Schedule Cardiovascular Disease office visit (clinic) [facility]; General Outpatient Referral Routine Expected: 07/21/2026 (Approximate), Expires: 10/20/2026 documented as of this encounter Visit Diagnoses Diagnosis Atrial Fibrillation Longstanding Persistent (HCC)- Primary Regurgitation Mitral documented in this encounter Additional Health Concerns Assessment Noted Time PHQ-9 Depression Total Score: 0 12/02/19 25 3:00 PM BLAST FURNACE CHECKER A fall risk assessment has been complete d for the patient 09/12/2022 10:09 AM CDT documented as of this encounter Care Teams Kiln Labourer Relationship Specialty Start Date End Date Jay Guzman M.B.B.S., [place] [address] [place] [address] PCP - General Family Medicine 09/20/20 documented as of this encounter
--- OUTSIDE RECORDS SUMMARY | 2025-08-15 11:00 | XMS_ITS | Encounter Summary ---
Author Organization [facility] Address [address] [place] [address] Care Team Providers Care Biodiesel Technology Manager Name Role Phone Jay Guzman M.D. Primary Care Shital lopez Reason for Visit * Reason Comments Skin Check * Appointment Request (Routine) - Closed Specialty Diagnoses / Procedures Referred By Osvaldo keith Referred To Contact Dermatology Referral ID Status Reason Start Date Expiration Date Visits Re quested Visits Authorized [id number] Closed 04/24/2025 07/25/2026 1 1 Encounter Details Date Type Department Care Team (Latest Contact Info) Description 08/15/2025 11:00 AM CDT Comprehensive Visit Department of Family Medicine, [facility], in [place], [place] [address] [phone] Sujatha Staples APRN, C.N.P. [address] [place] [phone] Nevi Multiple (Primary Dx); Screening Examination Skin Cancer; Keratosis Seborrheic; Angioma Castro; Dermatoheliosis Social History Tobacco Use Types Packs/Day Years Used Date Smoking Tobacco: Never Passive Smoke Exposure: Past Smokeless Tobacco: Never Comments:Father smoked until 1956 Alcohol Use Standard Drinks/Week Comments Not Currently 0 (1 standard drink = 0.6 oz pure alcohol) Not used since 1977 - sikhism reasons Humiliation, Afraid, Rape, and Kick questionnair [...] things needed for daily living? No 07/14/2025 [facility] Utilities Answer Date Recorded In the past 12 months has e electric, gas, oil, or water company threatened to shut off services in your home? No 07/14/2025 Depression Answer Date Recor ded PHQ-9 Total Score (max 27) 0 12/02 Housing Stability Answer Date Recorded What is your living situation today? I have a [facility] place to live 07/14/2025 Education Answer Date Recorded What is the highest level of school you have completed or the highest degree you have received? 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 - 08/15/2025 11:00 AM CDT SUBJECTIVE CHIEF COMPLAINT/REASON FOR VISIT Skin cancer screening examination. NOTE: Patient was made aware that I am trained as a Family Medicine Specialist and have a special interest in Dermatology; however, I am not a Information Manager. Anything beyond the scope of my abilitiesor comfort level will be referred to a Information Manager of their choosing. HISTORY OF PRESENT ILLNESS Christie is a very pleasant 80 y.o. female who presents for a full skin examination, she has a history of actinic keratoses. Per Nursing Notes: Reason for visit: FSE More details of current skin concern: Any other skin concerns: No Has the patient previously been a dermatology patient? Yes - Dr Pyle Is patient referred by another provider or self referred? Returning patient Personal history of skin cancer? (include details) No Significant history of sun exposure? Yes - Two or more blistering sunburns before age 18? No History of tanning bed use? No Personal history of other skin problems? No Family history of skin cancer? No Family history of other significant skin problems? No REVIEW OF SYSTEMS Constitutional, integumentary, and allergic/immunologic Review of Systems is otherwise negative except as otherwise remarked above or below. CURRENT MEDICATIONS Current Medications[1] ALLERGIES/CONTRAINDICATIONS Allergies Allergen Reactions Milk Other (see comments) [...] visual Wheat Other (see comments) Autoimmune Thrombocytopenia OBJECTIVE PHYSICAL EXAMINATION General: Alert and orientated to person, place, and time. Well-nourished and groomed, in no acute distress. Skin: A full skin examination was performed of the scalp, head, neck, face, hair, chest, abdomen, back, undergarments area, and 4 extremities including palms, soles, digits, and nails. Skin inspectedand palpated where appropriate. Eyes and lips, including vermilion lips, also examined. There are multiple castro angiomas, seborrheic keratoses, and nevi of the chest, abdomen, back, and extremitiesof benign appearance with moderately sun-damaged skin. ASSESSMENT / PLAN #1 Screening Examination Skin Cancer A skin cancer screening was performed of the areas described above. The patient has a history of actinic keratoses and sun damaged skin. Therefore, recommended routine skin self-examinations with theaid of another trusted individual for assistance to evaluate for new, changing, symptomatic or otherwise worrisome lesions of the skin as these can be signs of skin cancer. ABCDEs of melanoma discussed. Photoprotection was advised and strategies identified. Otherwise, return to Dermatology in 12-24months for a full head-to-toe skin cancer screening. #2 Benign-appearing Nevi There are multiple nevi of the skin of banal appearance. Recommend observation and monthly skin self-examinations observing for new, changing, symptomatic or otherwise worrisome lesions as these can be signs of skin cancer. #3 Keratosis Seborrheic #4 Angioma Castro The benign nature of the skin lesion(s) was discussed with the patient. No treatment is required. Irecommend continued observation. Should symptoms or changes develop related to this condition, I would recommend a return visit for reassessment. #5 Dermatoheliosis Sun protection and sun avoidance were reviewed with the patient. Educational materials were provided regarding skin self-examination, the warning signs and symptoms of skin cancer, and the proper useof sunscreen SPF 30 or higher. I would recommend a full skin cancer screening examination with an appropriately trained clinician every other year. PATIENT EDUCATION: Ready to learn, no apparent learning barriers were identified; learning preferences include listening. Explained diagnosis and treatment plan; patient expressed understanding of the content. This note represents shared documentation between the assisting nurse and the encounter provider. The content has been reviewed and edited as needed by the provider. [1] Current Outpatient Medications Medication Sig Dispense Refill ASCORBIC ACID, VITAMIN C, ORAL Take 1 tablet by mouth as needed. clobetasoL (Temovate) 0.05 % ointment Apply 1 Application topically 2 (two) times a day. Apply to perianal skin twice daily for 4-6 weeks. If symptoms improve can then switch to twice daily. (Patienttaking differently: Apply 1 Application topically daily. Apply to perianal skin once daily, three times a week.) 30 g 0 co-enzyme Q-10 (Co Q-10) 100 mg capsule Take 100 mg by mouth daily. cyanocobalamin (vitamin B-12) 250 mcg tablet Take 250 mcg by mouth once a week. Once a week (Patient taking differently: Take 250 mcg by mouth 2 (two) times a week. Once a week) dilTIAZem (Cardizem) 60 mg tablet Take 1 tablet (60 mg total) by mouth every 6 (six) hours. 360 tablet 0 estradioL (Estrace) 0.1 mg/g (0.01%) vaginal cream Insert 2 g into the vagina at bedtime. Apply twice weekly. 30 g 3 phytonadione, vitamin K1, (Mephyton) 100 mcg tablet Take 100 mcg by mouth once. terbinafine (LamISIL) 250 mg tablet Take 1 tablet (250 mg total) by mouth daily. UNABLE TO FIND Take 1 each by mouth once daily. Med Name: calm (magnesium citrate) 1/2 tsp UNABLE TO FIND Take 1 each by mouth daily. Med Name: Calm with calcium (magnesium citrate, calcium,potassium and boron) 1 tsp daily UNABLE TO FIND Med Name: AlgaeCal - calcium, magnesium, boron, vitamin K1, D, & C VITAMIN A ORAL Take 1 capsule by mouth 2 (two) times a week. vitamin K2 100 mcg capsule Take 1 capsule by mouth daily. vitamins A,C,S-fsub-abccxf (PRESERVISION AREDS) 7,160 Units-113 mg-100 Units per tablet Take 1 tablet by mouth daily. Current Facility-Administered Medications Medication Dose Route Frequency Provider Last Rate Last Admin fluorescein 100 mg/mL (10 %) injection 500 mg 500 mg intravenous Once in imaging Sam Manning M.D. sodium chloride 0.9 % injection 10 mL 10 mL intravenous PRN Sam Manning M.D. documented in this encounter Plan of Treatment Upcoming Encounters Date Type Department Care Team (Late st Contact Info) Description 09/06/2025 10:20 AM CDT Office Visit Department of Family Medicine, [facility], in [place], [place] [address] [facility] [address] Jay Guzman M.B.B.S., M.D. 300 [facility] [place] [place] [phone] 10/24/2025 1:00 PM FLORAL DESIGNER Appointment Department of Cardiovascular Diseases in [place], [place] [address] [place] [phone] Jorge Ordaz M.D. [address] [place] [phone] documented as of this encounter Visit Diagnoses Diagnosis Nevi Multiple- Primary Screening Examination Skin Cancer Keratosis Seborrheic Angioma Castro Dermatoheliosis documented in this encounter Additional Health Concerns Assessment Noted Time PHQ-9 Depression Total Score: 0 12/02/19 25 3:00 PM FLORAL DESIGNER A fall risk assessment has been complete d for the patient 09/12/2022 10:09 AM CDT documented as of this encounter Care Teams Biodiesel Technology Manager Relationship Specialty Start Date End Date Jay Guzman M.B.B.S., M.D. [address] [place] [phone] PCP - General Family Medicine 09/20/20 documented as of this encounter
--- OUTSIDE RECORDS SUMMARY | 2025-08-23 15:00 | XMS_ITS | Encounter Summary ---
Author Organization [facility] Address [address] [place] [address] Care Team Providers Care Buckle Strap Drum Operator Name Role Phone Jay Guzman M.D. [facility] Reason for Visit * Reason Comments Other Headache, tachycardi a, vaccinations, Encounter Details Date Type Department Care Team (Late st Contact Info) Description 08/23/2025 3:00 PM CDT Office Visit Department of Family Medicine, [facility], in [place], [place] [address] [place] [phone] Jay Guzman M.B.B.S., MPaulie [address] [place] [phone] Atrial Fibrillation Longstanding Persistent (HCC) (Primary Dx) Social History Tobacco Use Types Packs/Day Years Used Date Smoking Tobacco: Never Passive Smoke Exposure: Past Smokeless Tobacco: Never Comments:Father smoked until 1956 Alcohol Use Standard Drinks/Week Comments Not Currently 0 (1 standard drink = 0.6 oz pure alcohol) Not used since 1976 - roman catholic reasons Humiliation, Afraid, Rape, and Kick questionnair [...] things needed for daily living? No 07/14/2025 [employer] Utilities Answer Date Recorded In the past 12 months has [employer] electric, gas, oil, or water company threatened to shut off services in your home? No 07/14/2025 Depression Answer Date Recor ded PHQ-9 Total Score (max 27) 0 12/02 Housing Stability Answer Date Recorded What is your living situation today? I have a [facility] place to live 07/14/2025 Education Answer Date Recorded What is the highest level of school you have completed or the highest degree you have received? 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 Gender Identity Female 08/18/2021 8:27 PM CDT Sexual Orientation Not on file Occupation Industry Job Start Date Job End Date [employer] Not on file Not on file Not on file Not on file Not on file Not on file Not on file documented as of this encounter Last Filed Vital Signs Vital Sign Reading Time Taken Comments Blood Pressure - - Pulse 120 08/23/2025 2:50 PM CDT taken manually Temperature 36.7 C (98.1 F) 08/23/2025 2:50 PM CDT Respiratory Rate 20 08/23/2025 2:50 PM CDT Oxygen Saturation - - Inhaled Oxygen Concentration - - Weight 67.6 kg (149 lb 0.5 oz) 08/23/2025 2:50 PM CDT Height 175.5 cm (5' 9.09) 08/23/2025 2 :50 PM CDT Body Mass Index 21.95 08/23/2025 2:50 PM CDT documented in this encounter Progress Notes * Jay Guzman M.B.B.S., M.D. - 08/23/2025 3:00 PM CDT DATE OF VISIT: 08/23/2025 SUBJECTIVE CHIEF COMPLAINT / REASON FOR VISIT Christie Carlisle is a 80 y.o. female who presents for evaluation of Other (Headache, tachycardia, vaccinations, ). The patient verbally consented to an audio recording of their visit to assist with the completion of documentation. History of Present Illness Mrs. Christie Carlisle is a 80 year old female who presents for vaccinations and tachycardia management. She is scheduled for pacemaker placement next week. Her current medication, diltiazem, is not effectively controlling her heart rate, which remains above 100 beats per minute. She has stopped taking diltiazem due to experiencing pauses that caused fainting. Since discontinuing the medication, her heart rate has increased to around 120 beats per minute, which she finds acceptable for the short term. She is here today to receive vaccinations, specifically requesting the COVID-19 and shingles vaccines. Her insurance does not cover the shingles vaccine at this location, so she plans to obtain it from her pharmacy. She also inquires about the RSV vaccine, suspecting she had RSV last spring, and considers getting the flu shot, although she typically does not receive it as she handles the flu well. She recalls getting the flu shot before a previous hospital visit for an ablation in November, considering the increased exposure risk in the hospital setting. OBJECTIVE VITAL SIGNS Pulse (!) 120 Comment: taken manually Temp 36.7 ??C (Temporal) Resp 20 Ht 175.5 cm Wt 67.6 kg BMI 21.95 kg/m?? Physical Exam Vitals reviewed. Constitutional Appearance: Normal appearance. HENT Head: Normocephalic and atraumatic. Cardiovascular Rate and Rhythm: Tachycardia present. Pulmonary Effort: Pulmonary effort is normal. No respiratory distress. Breath sounds: No wheezing. Neurological Mental Status: She is alert and oriented to person, place, and time. Physical Exam VITALS: P- 120 CARDIOVASCULAR: Tachycardia present. ASSESSMENT/ PLAN Atrial Fibrillation Longstanding Persistent (HCC) Tachycardia not well controlled with current medications, including diltiazem, which she discontinued due to pauses and syncope. Heart rate remains elevated at 105-120 bpm. Pacemaker placement is scheduled next week to manage heart rate and alleviate symptoms. - Proceed with pacemaker placement next week General Health Maintenance Interested in COVID-19 and shingles vaccines. Discussed RSV and flu vaccines. Hesitant about flu vaccine but considering due to increased exposure risk during hospital visits. Encouraged RSV vaccine due to suspected past infection. - Administer COVID-19 vaccine today - Recommend obtaining shingles vaccine at pharmacy - Recommend RSV vaccine - Encourage flu vaccine due to increased exposure risk documented in this encounter Miscellaneous Notes * Assessment & Plan Note - Jay Guzman M.B.B.S., M.D. - 08/23/2025 3:00 PM CDTAssociated Problem(s): Atrial Fibrillation Longstanding Persistent (HCC) Tachycardia not well controlled with current medications, including diltiazem, which she discontinued due to pauses and syncope. Heart rate remains elevated at 105-120 bpm. Pacemaker placement is scheduled next week to manage heart rate and alleviate symptoms. - Proceed with pacemaker placement next week General Health Maintenance Interested in COVID-19 and shingles vaccines. Discussed RSV and flu vaccines. Hesitant about flu vaccine but considering due to increased exposure risk during hospital visits. Encouraged RSV vaccine due to suspected past infection. - Administer COVID-19 vaccine today - Recommend obtaining shingles vaccine at pharmacy - Recommend RSV vaccine - Encourage flu vaccine due to increased exposure risk documented in this encounter Plan of Treatment Upcoming Encounters Date Type Department Care Team (Late st Contact Info) Description 09/06/2025 10:20 AM CDT Office Visit Department of Family Medicine, [facility], in [place], [place] [address] [facility] [place] [phone] Jay Guzman M.B.B.S., [place] [address] [place] [phone] 10/24/2025 1:00 PM EXTENSION SERVICE SPECIALIST IN CHARGE Appointment Department of Cardiovascular Diseases in [place], [place] [address] [place] [phone] Jorge Ordaz M.D. [address] [place] [phone] documented as of this encounter Visit Diagnoses Diagnosis Atrial Fibrillation Longstanding Persistent (HCC)- Primary documented in this encounter Additional Health Concerns Assessment Noted Time PHQ-9 Depression Total Score: 0 12/02/19 25 3:00 PM EXTENSION SERVICE SPECIALIST IN CHARGE A fall risk assessment has been complete d for the patient 09/12/2022 10:09 AM CDT documented as of this encounter Care Teams Buckle Strap Drum Operator Relationship Specialty Start Date End Date Jay Guzman M.B.B.SJuan Alberto, [place] [address] [place] [phone] PCP - General Family Medicine 09/20/20 documented as of this encounter
--- OUTSIDE RECORDS SUMMARY | 2025-08-24 06:12 | XMS_ITS | Encounter Summary ---
Author Organization [facility] Address [address] [place] [address] Care Team Providers Care Tool Keeper Name Role Phone Jay Guzman M.D. Primary Care [facility] Reason for Referral * Cardiovascular-Diagnostic (Routine) - Closed Specialty Diagnoses / Procedures Referred By Osvaldo keith Referred To Contact Diagnoses Atrial Fibrillation Longstanding Persistent (HCC) Procedures Echo Transthoracic (TTE) Perry Lozano M.D., M.P.H. [address] [place] [phone] Phone: tel: fax: [facility] Referral ID Status Reason Start Date Expiration Date Visits Re quested Visits Authorized [id number] Closed 08/23/2025 11/23/2026 1 1 Reason for Visit * Cardiovascular-Diagnostic (Routine) - Closed Specialty Diagnoses / Procedures Referred By Osvadlo keith Referred To Contact Diagnoses Atrial Fibrillation Longstanding Persistent (HCC) Procedures Echo Transthoracic (TTE) Perry Lozano M.D., M.P.H. [address] [place] [address] Phone: tel: fax: [facility] Referral ID Status Reason Start Date Expiration Date Visits Re quested Visits Authorized [id number] Closed 08/23/2025 11/23/2026 1 1 Encounter Details Date Type Department Care Team (Latest Contact Info) Description 08/24/2025 6:12 AM CDT - 08/24/2025 8:19 AM CDT Hospital Encounter Department of Cardiovascular Diseases in [place], [place] [address] [place] [address] Perry Lozano M.D., M.P.H. [address] [place] [address] Atrial Fibrillation Longstanding Persistent (HCC) Discharge Disposition: Home or Self Care Social History Tobacco Use Types Packs/Day Years Used Date Smoking Tobacco: Never Passive Smoke Exposure: Past Smokeless Tobacco: Never Comments:Father smoked until 1956 Alcohol Use Standard Drinks/Week Comments Not Currently 0 (1 standard drink = 0.6 oz pure alcohol) Not used since 1976 - mosque reasons Humiliation, Afraid, Rape, and Kick questionnair [...] things needed for daily living? No 07/14/2025 [facility] Utilities Answer Date Recorded In the past 12 months has th e electric, gas, oil, or water company threatened to shut off services in your home? No 07/14/2025 Depression Answer Date Recor ded PHQ-9 Total Score (max 27) 0 12/02 Housing Stability Answer Date Recorded What is your living situation today? I have a [facility] place to live 07/14/2025 Education Answer Date Recorded What is the highest level of school you have completed or the highest degree you have received? 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 AM BOILER REPAIRMAN Gender Identity Female 08/18/2021 8:27 PM CDT [...] Take 1 capsule by mouth daily. vitamins A,C,J-tcdp-juuvq r (PRESERVISION AREDS) 7,160 Units-113 mg-100 Units per tablet Take 1 tablet by mouth daily. dilTIAZem (Cardizem) 60 mg tablet Take 1 tablet (60 mg total) by mouth every 6 (six) hours. 360 tablet 08/08/2025 9:14 AM CDT 08/07/2025 phytonadione, vitamin K1, (Mephyton) 100 mcg tablet Take 100 mcg by mouth once. documented as of this encounter Plan of Treatment Upcoming Encounters Date Type Department Care Team (Late st Contact Info) Description 09/06/2025 10:20 AM CDT Office Visit Department of Family Medicine, [facility], in [place], [place] [address] [place] [address] Jay Guzman M.B.BJuan AlbertoSJuan Alberto, MPaulie [address] [place] [address] 10/24/2025 1:00 PM BOILER REPAIRMAN Appointment Department of Cardiovascular Diseases in [place], [place] [address] [place] [address] Jorge Ordaz M.D. [address] [place] [address] documented as of this encounter Procedures Procedure [...] atrial level shunt by color flow imaging. Jptd-eg-rkoig shunt at atrial level. No intracardiac mass [...] regurgitation , eccentric septally directed jet. 9. Bvht-co-rmpum shunt at atrial level at the site [...] valve regurgitation , eccentric septallydirected jet. 9. Stci-ke-vitmq shunt at atrial level at the site [...] for atrial level shunt bycolor flow imaging. Bwux-uz-ywnzx shunt at atrial level. No intracardiacmass or thrombus, but the left atrial appendage cannot be visualizedadequately with transthoracic echo to exclude thrombus in this location.No pericardial effusion. For the complete report, see the Order-Level Documents. us Perry Lozano M.D., M.P.H. CV ECHO PROCEDURES F inal Result documented in this encounter Visit Diagnoses Diagnosis Atrial Fibrillation Longstanding Persistent (HCC) documented in [...] Total Score: 0 12/02/19 25 3:00 PM BOILER REPAIRMAN A fall risk assessment has been complete d for the patient 09/12/2022 10:09 AM CDT documented as of this encounter Care Teams Tool Keeper Relationship Specialty Start Date End Date Jay Guzman M.B.B.S., MShant. [address] [place] [phone] PCP - General Family Medicine 09/20/20 documented as of this encounter
--- OUTSIDE RECORDS SUMMARY | 2025-08-24 08:20 | XMS_ITS | Encounter Summary ---
Author Organization [facility] Address [address] [place] [address] Care Team Providers Care Web Solutions Architect Name Role Phone Jay Guzman M.D. [facility] Encounter Details Date Type Department Care Team (Latest Contact Info) Description 08/24/2025 8:20 AM CDT - 08/24/2025 8:40 AM CDT Hospital Encounter Department of Laboratory Medicine and Pathology, [facility], in [place], [place] [address] [place] [address] Perry Lozano M.D., M.P.H. [address] [place] [address] Atrial Fibrillation Longstanding Persistent (HCC) Discharge Disposition: Home or Self Care Social History Tobacco Use Types Packs/Day Years Used Date Smoking Tobacco: Never Passive Smoke Exposure: Past Smokeless Tobacco: Never Comments:Father smoked until 1956 Alcohol Use Standard Drinks/Week Comments Not Currently 0 (1 standard drink = 0.6 oz pure alcohol) Not used since 1976 - jain reasons Humiliation, Afraid, Rape, and Kick questionnair [...] things needed for daily living? No 07/14/2025 [facility] Utilities Answer Date Recorded In the past 12 months has th e electric, gas, oil, or water company threatened to shut off services in your home? No 07/14/2025 Depression Answer Date Recor ded PHQ-9 Total Score (max 27) 0 12/02 Housing Stability Answer Date Recorded What is your living situation today? I have a [facility] place to live 07/14/2025 Education Answer Date Recorded What is the highest level of school you have completed or the highest degree you have received? 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 AM SHIFT LAB TECHNICIAN Gender Identity Female 08/18/2021 8:27 PM CDT [...] Take 1 capsule by mouth daily. vitamins A,C,B-pjov-mdlrk r (PRESERVISION AREDS) 7,160 Units-113 mg-100 Units [...] CDT Office Visit Department of Family Medicine, [facility], in [place], [place] [address] [place] [address] Jay Guzman M.B.B.S., M.D. 300 [place] [address] 10/24/2025 1:00 PM SHIFT LAB TECHNICIAN Appointment Department of Cardiovascular Diseases in [place], [place] [address] [place] [phone] Jorge Ordaz M.D. 300 [facility] [place] [phone] documented as of this encounter Procedures Procedure Name Priority Date/Time Associated Diagnosis Comments THYROID FUNCTION CASCADE, S Routine 08/24/2025 8:36 AM CDT Atrial Fibrillation Longstanding Persistent (HCC) CBC WITHOUT DIFFERENTIAL, B Routine 08/24/2025 8:36 AM CDT Atrial Fibrillation Longstanding Persistent (HCC) BASIC METABOLIC PANEL, S/P Routine 08/24/2025 8:36 AM CDT Atrial Fibrillation Longstanding Persistent (HCC) documented in this encounter Results * Thyroid Function [place] (08/24/2025 8:36 AM CDT) TSH, Sensitive 2.3 0.3 - 4.2 mIU/L 08/24/2025 9:55 AM CDT DTL Blood (Blood, Venous) 08/24/2025 8:36 AM CDT 08/24/2025 8:55 AM CDT us Perry Lozano M.D., M.P.H. LAB BLOOD ADD-ON Fin al Result [facility] [address] [place] [address], [facility] [address] [place] [address] * CBC without Differential (08/24/2025 8:36 AM CDT) Hemoglobin 13.3 11.6 - 15.0 g/dL 08/24/2025 9:15 AM CDT DTL Hematocrit 40.7 35.5 - 44.9 % 08/24/2025 9:15 AM CDT DTL Erythrocytes 4.34 3.92 - 5.13 x10(12)/L 08/24/2025 9:15 AM CDT DTL MCV 93.8 78.2 - 97.9 fL 08/24/2025 9:15 AM CDT DTL RBC Distrib Width 13.9 12.2 - 16.1 % 08/24/2025 9:15 AM CDT DTL Platelet Count 200 157 - 371 x10(9)/L 08/24/2025 9:15 AM CDT DTL Leukocytes 4.9 3.4 - 9.6 x10(9)/L 08/24/2025 9:15 AM CDT DTL Blood (Blood, Venous) 08/24/2025 8:36 AM CDT 08/24/2025 8:54 AM CDT Perry Lozano M.D., M.P.H. LAB BLOOD ADD-ON Fin al Result [facility] [address] [facility] [address] [place] [address] * (ABNORMAL) Basic Metabolic Panel (08/24/2025 8:36 AM CDT) Pathologist [facility] Potassium, S 4.0 3.6 - 5.2 mmol/L 08/24/2025 9:55 AM CDT DTL Sodium, S 141 135 - 145 mmol/L 08/24/2025 9:55 AM CDT DTL Chloride, S 104 98 - 107 mmol/L 08/24/2025 9:55 AM CDT DTL Bicarbonate, S 25 22 - 29 mmol/L 08/24/2025 9:55 AM CDT DTL Anion Gap 12 7 - 15 08/24/2025 9:55 AM CDT DTL BUN (Blood Urea Nitrogen), S 24(H) 6 - 21 mg/dL 08/24/2025 9:55 AM CDT DTL Creatinine 0.92 0.59 - 1.04 mg/dL 08/24/2025 9:55 AM CDT DTL Estimated GFR (eGFR) 64 >=60 mL/min/BSA 08/24/2025 9:55 AM CDT DTL Comment: Estimated GFR calculated using the 2020 CKD_EPI creatinine equation. Calcium, Total, S 9.3 8.8 - 10.2 mg/dL 08/24/2025 9:55 AM CDT DTL Glucose, S 104 70 - 140 mg/dL 08/24/2025 9:55 AM CDT DTL Blood (Blood, Venous) 08/24/2025 8:36 AM CDT 08/24/2025 8:55 AM CDT Perry Lozano M.D., M.P.H. LAB BLOOD [place] [address], [facility] [place] [address] documented in this encounter Visit Diagnoses Diagnosis Atrial Fibrillation Longstanding Persistent (HCC) documented in this encounter Additional Health Concerns Assessment Noted Time PHQ-9 Depression Total Score: 0 12/02/19 25 3:00 PM SHIFT LAB TECHNICIAN A fall risk assessment has been complete d for the patient 09/12/2022 10:09 AM CDT documented as of this encounter Care Teams Web Solutions Architect Relationship Specialty Start Date End Date Jay Guzman M.B.BJuan AlbertoSJuan Alberto, MShant. [address] [place] [phone] PCP - General Family Medicine 09/20/20 documented as of this encounter
--- OUTSIDE RECORDS SUMMARY | 2025-08-24 08:41 | XMS_ITS | Encounter Summary ---
Author Organization [facility] Address [address] [place] [address] Care Team Providers Care Burn Nurse Name Role Phone Jay Guzman M.D. Primary Care [facility] Reason for Referral * Outpatient (Routine) - Closed Specialty Diagnoses / Procedures Referred By Osvaldo keith Referred To Contact Diagnoses Atrial Fibrillation Longstanding Persistent (HCC) Procedures DX Chest AP or PA and Lateral 2 Views Perry Lozano M.D., M.P.H. [address] [place] [address] Phone: tel: fax: [facility] Referral ID Status Reason Start Date Expiration Date Visits Re quested Visits Authorized [id number] Closed 08/23/2025 11/23/2026 1 1 Reason for Visit * Outpatient (Routine) - Closed Specialty Diagnoses / Procedures Referred By Osvaldo keith Referred To Contact Diagnoses Atrial Fibrillation Longstanding Persistent (HCC) Procedures DX Chest AP or PA and Lateral 2 Views Perry Lozano M.D., M.P.H. [address] [place] [address] Phone: tel: fax: [facility] Referral ID Status Reason Start Date Expiration Date Visits Re quested Visits Authorized [id number] Closed 08/23/2025 11/23/2026 1 1 Encounter Details Date Type Department Care Team (Latest Contact Info) Description 08/24/2025 8:41 AM CDT - 08/24/2025 11:59 PM CDT Hospital Encounter Department of Radiology, [facility], in [place], [place] [address] [place] [address] Perry Lozano M.D., M.P.H. [address] [place] [address] Atrial Fibrillation Longstanding Persistent (HCC) Discharge Disposition: Home or Self Care Social History Tobacco Use Types Packs/Day Years Used Date Smoking Tobacco: Never Passive Smoke Exposure: Past Smokeless Tobacco: Never Comments:Father smoked until 1956 Alcohol Use Standard Drinks/Week Comments Not Currently 0 (1 standard drink = 0.6 oz pure alcohol) Not used since 1976 - hinduism reasons Humiliation, Afraid, Rape, and Kick questionnair [...] things needed for daily living? No 07/14/2025 [facility] Utilities Answer Date Recorded In the past 12 months has th e electric, gas, oil, or water company threatened to shut off services in your home? No 07/14/2025 Depression Answer Date Recor ded PHQ-9 Total Score (max 27) 0 12/02 Housing Stability Answer Date Recorded What is your living situation today? I have a [facility] place to live 07/14/2025 Education Answer Date Recorded What is the highest level of school you have completed or the highest degree you have received? 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 AM FIRE AND EXPLOSION INVESTIGATOR Gender Identity Female 08/18/2021 8:27 PM CDT [...] Take 1 capsule by mouth daily. vitamins A,C,H-nnhp-pskod r (PRESERVISION AREDS) 7,160 Units-113 mg-100 Units [...] CDT Office Visit Department of Family Medicine, [facility], in [place], [place] [address] [place] [address] Jay Guzman M.B.BJuan AlbertoSJuan Alberto, MPaulie [address] [place] [address] 10/24/2025 1:00 PM FIRE AND EXPLOSION INVESTIGATOR Appointment Department of Cardiovascular Diseases in [place], [place] [address], [place] [address] Jorge Ordaz M.D. [address] [place] [phone] documented as of this encounter Procedures Procedure Name Priority Date/Time Associated Diagnosis Comments DX CHEST AP OR PA AND LATERAL 2 VIEWS RAD - Routine (most inpatients and all outpatients) 08/24/2025 8:49 AM CDT Atrial Fibrillation Longstanding Persistent (HCC) documented in this encounter Results * DX Chest AP or PA and Lateral 2 Views (08/24/2025 8:49 AM CDT) Anatomical Region Laterality Modality Chest, Thoracic RST LOS, Tho racic ARZ LOS, Thoracic FLA LOS N/A Digital Radiography Impressions 08/24/2025 8:59 AM CDT Sternotomy with MVR and tricuspid annuloplasty. Cardiomegaly. 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 Pulmonary venous hypertension. Thoracolumbar curve. No significant change since 03/16/2024. Narrative 08/24/2025 8:59 AM CDT EXAM: DX CHEST AP OR PA AND LATERAL 2 VIEWS Procedure Note Kaushal Vu M.D. - 08/24/2025 EXAM: DX CHEST AP OR PA AND LATERAL 2 VIEWS IMPRESSION: Sternotomy with MVR and tricuspid annuloplasty. Cardiomegaly. Fibrosis inthe bases. Pulmonary venous hypertension. Thoracolumbar curve. Nosignificant change since 03/16/2024. Perry Lozano M.D., M.P.H. IMG DIAGNOSTIC IMAGI NG PROCEDURES Final Result documented in this encounter Visit Diagnoses Diagnosis Atrial Fibrillation Longstanding Persistent (HCC) documented in this encounter Additional Health Concerns Assessment Noted Time PHQ-9 Depression Total Score: 0 12/02/19 25 3:00 PM FIRE AND EXPLOSION INVESTIGATOR A fall risk assessment has been complete d for the patient 09/12/2022 10:09 AM CDT documented as of this encounter Care Teams Burn Nurse Relationship Specialty Start Date End Date Jay Guzman M.B.BJuan AlbertoSJuan Alberto, MShant. [address] [place] [phone] PCP - General Family Medicine 09/20/20 documented as of this encounter
--- OUTSIDE RECORDS SUMMARY | 2025-08-24 10:00 | XMS_ITS | Encounter Summary ---
Author Organization [facility] Address [address] [place] [address] Care Team Providers Care Stereotype Finisher Name Role Phone Jay Guzman M.D. Primary Care Shital lopez Reason for Visit * Outpatient (Routine) - Closed Specialty Diagnoses / Procedures Referred By Osvaldo keith Referred To Contact Cardiovascular Disease Perry Lozano M.D., M.P.H. [address] [place] [address] Phone: tel: fax: [facility] Referral ID Status Reason Start Date Expiration Date Visits Re quested Visits Authorized [id number] Closed 08/23/2025 02/22/2027 1 1 Encounter Details Date Type Department Care Team (Latest Contact Info) Description 08/24/2025 10:00 AM CDT Office Visit Department of Cardiovascular Medicine in [place], [place] [address] [place] [phone] Jamar Gan M.D. [address] [place] [phone] Atrial Fibrillation Longstanding Persistent (HCC) (Primary Dx) Social History Tobacco Use Types Packs/Day Years Used Date Smoking Tobacco: Never Passive Smoke Exposure: Past Smokeless Tobacco: Never Comments:Father smoked until 1956 Alcohol Use Standard Drinks/Week Comments Not Currently 0 (1 standard drink = 0.6 oz pure alcohol) Not used since 1976 - mandaen reasons Humiliation, Afraid, Rape, and Kick questionnair [...] things needed for daily living? No 07/14/2025 [facility] Utilities Answer Date Recorded In the past 12 months has e electric, gas, oil, or water company threatened to shut off services in your home? No 07/14/2025 Depression Answer Date Recor ded PHQ-9 Total Score (max 27) 0 12/02 Housing Stability Answer Date Recorded What is your living situation today? I have a [facility] place to live 07/14/2025 Education Answer Date Recorded What is the highest level of school you have completed or the highest degree you have received? 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 AM GOLF COURSE EQUIPMENT OPERATOR Gender Identity Female 08/18/2021 8:27 PM CDT [...] * VIDEO: LIVING WELL WITH A PACEMAKER (BENGALI) documented in this encounter Consult Notes * Jamar Gan M.D. - 08/24/2025 10:00 AM CDT The patient verbally consented to an audio recording of their visit to assist with the completion of documentation. SUBJECTIVE Tachycardias REFERRED BY Perry Lozano M.D., M.P.H. [address] [place] [phone] CHIEF COMPLAINT/REASON FOR VISIT AF with RVR [...] regurgitation , eccentric septally directed jet. 9. Bogh-oy-mcpdr shunt at atrial level at the site [...] mean Doppler gradient 2 mmHg Mild (possibly pyqd-ph-winxofef) regurgitation. 4. Mild-moderately enlarged right ventricular chamber [...] platelets are normal. Discuss long-term anticoagulation with cut out and marking machine operator and primary review engineer. Consider pacemaker implantation and AV node ablation to control ventricular rate. I have provided additional educational materials on risks and benefits of pacemaker options: transvenous vs. leadless. Schedule pacemaker implantation and AV node ablation with Dr. Lozano. In terms of terminal carman anticoagulation for AF, we discussed the data re: surgical LAAO. In LAOS III ([facility] 2020), surgical LAAO alone [...] wheat. Monitor platelet count regularly. Consult with cut out and marking machine operator regarding anticoagulation management. From a stroke prevention [...] a total of 62 minutes which includes ahbi-so-zrys time and yiv-ynst-bt-face spent on preparing to see the patient, [...] For patients with AF and an elevated APC4FC6-ZVQv score of 2 or greater in men [...] in DOAC-/NOAC-eligible patients with AF (except with gpswdbrd-wj-kaakfm mitral stenosis or a mechanical heart valve). 3. Exclusion criteria are now defined as cjatujwt-ux-tdzcvl mitral stenosis or a mechanical heart valve. 4. In patients with AF (except with pmebooqq-zi-ecxbim mitral stenosis or a mechanical heart valve), the ONM9SW4-ZANp score is recommended for assessment of stroke risk I have explained the risks/benefits/side effects of warfarin and DOACs/NOACs as above, including but not limited to, bleeding, coumadin skin necrosis, interactions with other drugs. Advantages of NOACs include better risk/benefit profile (for some), more consistent regimen, and lack of monitoring required. Disadvantages include expense and less of a track record/fpc data. Furthermore, reversal of these drugs with [...] disease, it would be off label use. [id number] Score [id number] Adjusted Stroke Rate (%/year) Congestive HF 1 [...] Take 1 capsule by mouth daily. vitamins A,C,K-ldfy-yecree (PRESERVISION AREDS) 7,160 Units-113 mg-100 Units per [...] Office Visit Department of Family Medicine, [facility], in [place], [place] [address] [place] [phone] Jay Guzman M.B.B.S., M.D. 300 [place] [phone] 10/24/2025 1:00 PM GOLF COURSE EQUIPMENT OPERATOR Appointment Department of Cardiovascular Diseases in [place], [place] [address] [place] [phone] Jorge Ordaz M.D. 300 [place] [phone] documented as of this encounter Visit Diagnoses Diagnosis Atrial Fibrillation Longstanding Persistent (HCC)- Primary documented in this encounter Additional Health Concerns Assessment Noted Time PHQ-9 Depression Total Score: 0 12/02/19 25 3:00 PM GOLF COURSE EQUIPMENT OPERATOR A fall risk assessment has been complete d for the patient 09/12/2022 10:09 AM CDT documented as of this encounter Care Teams Stereotype Finisher Relationship Specialty Start Date End Date Jay Guzman M.B.B.S., M.D. 300 [facility] [phone] PCP - General Family Medicine 09/20/20 documented as of this encounter
--- OUTSIDE RECORDS SUMMARY | 2025-08-29 14:39 | XMS_ITS | Encounter Summary ---
Author Organization [facility] Address [address] [place] [address] Care Team Providers Care Oil Pipeline Operator Name Role Phone Jay Guzman M.D. [facility] Reason for Referral * Outpatient (Routine) - Closed Specialty Diagnoses / Procedures Referred By Contac t Referred To Contact Diagnoses Osteoporosis Procedures BMD Bone Density Spine Hips Jay Guzman M.B.B.S., M.D. [address] [place] [address] Phone: tel: fax: [facility] Region Referral ID Status Reason Start Date Expiration Date Visits Re quested Visits Authorized [id number] Closed 07/10/2025 10/10/2026 1 1 Reason for Visit * Outpatient (Routine) - Closed Specialty Diagnoses / Procedures Referred By Contac t Referred To Contact Diagnoses Osteoporosis Procedures BMD Bone Density Spine Hips Jay Guzman M.B.B.S., M.D. [address] [place] [address] Phone: tel: fax: [facility] Region Referral ID Status Reason Start Date Expiration Date Visits Re quested Visits Authorized [id number] Closed 07/10/2025 10/10/2026 1 1 Encounter Details Date Type Department Care Team (Latest Contact Info) Description 08/29/2025 2:39 PM CDT - 08/29/2025 11:59 PM CDT Hospital Encounter Department of Radiology in [place], [place] [address] [place] [phone] Jay Guzman M.B.B.S., M.D. [address] [place] [phone] Osteoporosis Discharge Disposition: Home or Self Care Social [...] things needed for daily living? No 07/14/2025 [facility] Utilities Answer Date Recorded In the past 12 months has th e electric, gas, oil, or water company threatened to shut off services in your home? No 07/14/2025 Depression Answer Date Recor ded PHQ-9 Total Score (max 27) 0 12/02 Housing Stability Answer Date Recorded What is your living situation today? I have a [facility] place to live 07/14/2025 Education Answer Date Recorded What is the highest level of school you have completed or the highest degree you have received? 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 vitamins A,C,C-vmwc-teezf r (PRESERVISION AREDS) 7,160 Units-113 mg-100 Units per tablet Take 1 tablet by mouth daily. phytonadione, vitamin K1, (Mephyton) 100 mcg tablet Take 100 mcg by mouth once. documented as of this encounter Plan of Treatment Upcoming Encounters Date Type Department Care Team (Late st Contact Info) Description 09/06/2025 10:20 AM CDT Office Visit Department of Family Medicine, [facility], in [place], [place] [address] [place] [address] Jay Guzman M.B.BLeonarda Alcala [address] [place] [phone] 10/24/2025 1:00 PM GROCERY STORE MANAGER Appointment Department of Cardiovascular Diseases in [place], [place] [address] [place] [address] Jorge Ordaz M.D. [address] [place] [phone] documented as of this encounter Procedures Procedure Name Priority Date/Time Associated Diagnosis Comments BMD BONE DENSITY SPINE HIPS RAD - Routine (most inpatients and all outpatients) 08/29/2025 3:12 PM CDT Osteoporosis documented in this encounter Results * BMD Bone Density Spine Hips (08/29/2025 3:12 PM CDT) Anatomical Region Laterality Modality Hip, Lumbar Spine, Nuclear M edicine RST LOS, Musculoskeletal ARZ LOS, Muskuloskeletal FLA LOS N/A Radio graphic Imaging Impressions 08/29/2025 4:18 PM CDT Osteoporosis AP Spine (region: L1-L4 (L2,L3)) Narrative 08/29/2025 4:18 PM CDT EXAM: BMD BONE DENSITY SPINE HIPS Bone Mineral Density (BMD) analysis performed on [facility] [facility] with serial number [id number]. COMPARISON: Serial Comparisons Left Total Hip results: Exam Date BMD T-score 04/20/2008 0.653 g/cm2 -2.8 06/13/2010 0.674 g/cm2 -2.6 01/06/2013 0.653 g/cm2 -2.8 08/31/2018 0.604 g/cm2 -3.2 07/09/2021 0.584 g/cm2 -3.4 12/24/2023 0.549 g/cm2 -3.6 08/29/2025 0.575 g/cm2 -3.4 Change vs. Previous (difference): 0.026 g/cm2 Change vs. Previous (%): 4.7 % The absolute BMD change from previous, 0.026 g/cm2, is greater than least significant change: No The absolute BMD change from baseline, -0.078 g/cm2, is greater than least significant change: Yes Spine results: Exam Date BMD T-score 04/20/2008 0.769 g/cm2 -3.3 06/13/2010 0.701 g/cm2 -3.9 01/06/2013 0.708 g/cm2 -3.8 08/31/2018 0.679 g/cm2 -4.1 07/09/2021 0.707 g/cm2 -3.8 12/24/2023 0.664 g/cm2 -4.2 08/29/2025 0.729 g/cm2 -3.6 Change vs. Previous (difference): 0.065 g/cm2 Change vs. Previous (%): 9.8 % The absolute BMD change from previous, 0.065 g/cm2, is greater than the least significant change: Yes The absolute BMD change from baseline, -0.040 g/cm2, is greater than the least significant change: No ----- FINDINGS: Left Hip: Femur Neck: BMD = 0.636 g/cm2 T-score = -2.9 Z-score = -0.8 Total Hip: BMD = 0.575 g/cm2 T-score = -3.4 Z-score = -1.5 Lumbar Spine: L1: BMD = 0.703 g/cm2 L4: BMD = 0.749 g/cm2 Total Lumbar Spine (L1-L4 (L2,L3)): BMD = 0.729 g/cm2 T-score = -3.6 Z-score = -1.8 Trabecular Bone Score: L1-L4 (L2,L3): TBS = 1.116 < 1.23: low 1.23 -1.31: borderline > 1.31: normal A low TBS has been associated with increased risk of fractures in certain populations. TBS should not be used alone to determine treatment recommendations. It can be used in conjunction with BMD and FRAX to inform management. Please note: A more comprehensive DXA report, including images and graphs, is available in [employer]. In the absence of other causes of low BMD or demonstrated skeletal fragility, osteoporosis may be diagnosed in post-menopausal women and men at or above age 50 when the T-score is at or below -2.5 as defined by the WHO. Low bone density is present at T-scores between -1 and -2.5. The diagnosis in pre-menopausal women and men < age 50 can be based on low bone density or evidence of skeletal fragility in the appropriate clinical setting. Degenerative changes are present which may spuriously elevate the spine BMD measurement. Patient does not meet ISCD guidelines for FRAX calculations. (T-score) Procedure Note Darian Encinas M.D. - 08/29/2025 EXAM: BMD BONE DENSITY SPINE HIPS Bone Mineral Density (BMD) analysis performed on [facility] withserial number [id number]. COMPARISON: Serial Comparisons Left Total Hip results: Exam Date BMD T-score 04/20/2008 0.653 g/cm2 -2.8 06/13/2010 0.674 g/cm2 -2.6 01/06/2013 0.653 g/cm2 -2.8 08/31/2018 0.604 g/cm2 -3.2 07/09/2021 0.584 g/cm2 -3.4 12/24/2023 0.549 g/cm2 -3.6 08/29/2025 0.575 g/cm2 -3.4 Change vs. Previous (difference): 0.026 g/cm2 Change vs. Previous (%): 4.7 % The absolute BMD change from previous, 0.026 g/cm2, is greater than least significant change: No The absolute BMD change from baseline, -0.078 g/cm2, is greater than least significant change: Yes Spine results: Exam Date BMD T-score 04/20/2008 0.769 g/cm2 -3.3 06/13/2010 0.701 g/cm2 -3.9 01/06/2013 0.708 g/cm2 -3.8 08/31/2018 0.679 g/cm2 -4.1 07/09/2021 0.707 g/cm2 -3.8 12/24/2023 0.664 g/cm2 -4.2 08/29/2025 0.729 g/cm2 -3.6 Change vs. Previous (difference): 0.065 g/cm2 Change vs. Previous (%): 9.8 % The absolute BMD change from previous, 0.065 g/cm2, is greater than the least significant change: Yes The absolute BMD change from baseline, -0.040 g/cm2, is greater than the least significant change: No ----- FINDINGS: Left Hip: Femur Neck: BMD = 0.636 g/cm2 T-score = -2.9 Z-score = -0.8 Total Hip: BMD = 0.575 g/cm2 T-score = -3.4 Z-score = -1.5 Lumbar Spine: L1: BMD = 0.703 g/cm2 L4: BMD = 0.749 g/cm2 Total Lumbar Spine (L1-L4 (L2,L3)): BMD = 0.729 g/cm2 T-score = -3.6 Z-score = -1.8 Trabecular Bone Score: L1-L4 (L2,L3): TBS = 1.116 < 1.23: low 1.23 -1.31: borderline > 1.31: normal A low TBS has been associated with increased risk of fractures in certainpopulations. TBS should not be used alone to determine treatmentrecommendations. It can be used in conjunction with BMD and FRAX to informmanagement. Please note: A more comprehensive DXA report, including images and graphs,is available in [employer]. In the absence of other causes of low BMD or demonstrated skeletalfragility, osteoporosis may be diagnosed in post-menopausal women and menat or above age 50 when the T-score is at or below -2.5 as defined by theWHO. Low bone density is present at T-scores between -1 and -2.5. Thediagnosis in pre-menopausal women and men < age 50 can be based on lowbone density or evidence of skeletal fragility in the appropriate clinicalsetting. Degenerative changes are present which may spuriously elevate the spineBMD measurement. Patient does not meet ISCD guidelines for FRAX calculations. (T-score) IMPRESSION: Osteoporosis AP Spine (region: L1-L4 (L2,L3)) Jay Neves M.D. IMG DXA PROCEDU RES Final Result documented in this encounter Visit Diagnoses Diagnosis Osteoporosis documented in this encounter Additional Health Concerns Assessment Noted Time PHQ-9 Depression Total Score: 0 12/02/19 25 3:00 PM GROCERY STORE MANAGER A fall risk assessment has been complete d for the patient 09/12/2022 10:09 AM CDT documented as of this encounter Care Teams Oil Pipeline Operator Relationship Specialty Start Date End Date Jay Guzman M.B.B.S., M.D. [address] [place] [address] [place]avia [place], [place] [phone] PCP - General Family Medicine 09/20/20 documented as of this encounter
--- OUTSIDE RECORDS SUMMARY | 2025-08-30 10:24 | XMS_ITS | Encounter Summary ---
Author Organization [facility] Address [address] [place] [address] Care Team Providers Care Remotely Piloted Vehicle Controller Name Role Phone Jay Guzman M.D. [facility] Reason for Referral * Outpatient (Routine) - Closed Specialty Diagnoses / Procedures Referred By Osvaldo keith Referred To Contact Dylan Automatedrequest [facility] Referral ID Status Reason Start Date Expiration Date Visits Re quested Visits Authorized [id number] Closed 08/31/2025 03/02/2027 1 1 Scheduling Instructions The nurse follow-up call must be scheduled within 24 business hours of patient discharge. Reason for Visit * Auth/Cert (Routine) Specialty Diagnoses / Procedures Referred By Osvaldo keith Referred To Contact Diagnoses Atrial Fibrillation Permanent (HCC) Atrial Fibrillation Permanent (HCC) [I48.21] Procedures MD INS/RPLC PCMKR ATRIAL & VENT PPM IMPLANT Perry Lozano M.D., M.P.H. [address] [place] [address] Phone: tel: fax: Referral ID Status Reason Start Date Expiration Date Visits Re quested Visits Authorized [id number] 1 1 Encounter Details Date Type Department Care Team (Latest Contact Info) Description 08/30/2025 10:24 AM CDT - 08/31/2025 1:14 PM CDT Hospital Encounter [facility], [facility], [facility], Fourth Floor [address] [place] [address] Perry Lozano M.D., M.P.H. [address] [place] [address] Atrial Fibrillation Permanent (HCC); Atrial Fibrillation Longstanding Persistent (HCC) Discharge Disposition: Home or Self Care Social History Tobacco Use Types Packs/Day Years Used Date Smoking Tobacco: Never Passive Smoke Exposure: Past Smokeless Tobacco: Never Comments:Father smoked until 1956 Alcohol Use Standard Drinks/Week Comments Not Currently 0 (1 standard drink = 0.6 oz pure alcohol) Not used since 1976 - nondenominational reasons Humiliation, Afraid, Rape, and Kick questionnair e Answer Date Recorded Within the last year, have y ou been afraid of your partner or ex-partner? No 08/31/2025 Within the last year, have y ou been humiliated or emotionally abused in other ways by your partner or ex-partner? No Within the last year, have y ou been kicked, hit, slapped, or otherwise physically hurt by your partner or ex-partner? No 08/31/2025 Within the last year, have y ou been raped or forced to have any kind of sexual activity by your partner or ex-partner? No 08/31/2025 Hunger Vital Sign Answer Date Recorded Within the past 12 months, y ou worried that your food would run out before you got the money to buy more. Never true 08/31/20 25 Within the past 12 months, t he food you bought just didn't last and you didn't have money to get more. Never true 08/31/2025 PRAPARE - Transportation Answer Date Re corded In the past 12 months, has l ack of transportation kept you from medical appointments or from getting medications? No 08/16 In the past 12 months, has l ack of transportation kept you from meetings, work, or from getting things needed for daily living? No 08/31/[address] [facility] Utilities Answer Date Recorded In the past 12 months has th e electric, gas, oil, or water [employer] threatened to shut off services in your home? No 08/31/2025 Depression Answer Date Recor ded PHQ-9 Total Score (max 27) 0 12/02 Housing Stability Answer Date Recorded What is your living situation today? I have a [facility] place to live 08/31/2025 Education Answer Date Recorded What is the highest level of school you have completed or the highest degree you have received? 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 Gender Identity Female 08/18/2021 8:27 PM CDT Sexual Orientation Not on file Occupation Industry Job Start Date Job End Date [employer] Not on file Not on file Not on file Not on file Not on file Not on file Not on file documented as of this encounter Last Filed Vital Signs Vital Sign Reading Time Taken Comments Blood Pressure 148/94 08/31/2025 12:30 PM CDT Pulse 92 08/31/2025 12:30 PM CDT Temperature 36.9 C (98.4 F) 08/31/2025 12:30 PM CDT Respiratory Rate 21 08/31/2025 12:30 PM CDT Oxygen Saturation 96% 08/31/2025 12:30 PM CDT Inhaled Oxygen Concentration - - Weight 67.2 kg (148 lb 2.4 oz) 08/31/2025 4:45 A M CDT Height 178 cm (5' 10.08) 08/30/2025 11:54 AM CD T Body Mass Index 21.21 08/30/2025 11:54 AM CDT documented in this encounter Discharge Summaries * Pamela Melissa APRN, C.N.P., M.S.N. - 08/31/2025 9:57 AM CDT DISCHARGE SUMMARY BRIEF OVERVIEW Admission Date: 08/30/2025 Discharge Date: 08/31/25 Discharge Provider: Perry Lozano M.D., M.P.H. Discharge Provider Team: RST CVD Interventional/Heart Rhythm PRINCIPAL DIAGNOSIS Hospital Problems as of 08/31/2025 1. * (Principal) Ablation Atrioventricular Node Status Post August 2025 2. Atrial Fibrillation Longstanding Persistent (HCC) Atrial Fibrillation 3. Hyperlipidemia 4. Regurgitation Mitral 5. Chronic Diastolic (Congestive) Heart Failure (HCC) 6. Atypical Atrial Flutter (HCC) 7. Atrial Fibrillation Permanent (HCC) 8. Apnea Sleep Obstructive 9. Pacemaker Cardiac Status Post Status post Aveir leadless permanent pacemaker implantation, August 2025 OUTPATIENT FOLLOW UP: Patient was instructed to follow up with their local Primary Care Provider in 7- 10 days for a post hospitalization visit. Routine device follow-up will occur every 3 months. The first appointment will be at the [facility]. The patient will be contacted by [facility] to set up this appointment. After this appointment, routine follow-up will continue with remote home monitoring. A remote home monitor has been given to the patient. They were instructed to verify communication between the monitor and the deviceand instructed to send a transmission within the first week after returning home. Then call the [facility] at ([phone]) during regular business hours (Thursday-Thursday, 8 a.m. - 4 p.m.) to verify the transmission was received. HOSPITAL COURSE: Christie Carlisle is a 80-year-old with recurrent atrial fibrillation/flutter status post prior surgical Maze procedure and catheter ablation in November 2024. She presented for leadless Avier pacemaker implantation and AV node ablation performed by Dr. Lozano on 08/30/2025. She was admitted for overnight observation given pacemaker dependency. Her overnight course was uneventful. Right femoral access site has remained free of bleeding or hematoma. Overnight telemetry demonstrates ventricular pacing with occasional ventricular ectopy consistent with baseline Holter monitor findings. Chest x-ray demonstrates leadless pacemaker in anticipated position. Device interrogation prior to hospital discharge was satisfactory. Device is programmedVVIR at 90 beats per minute. She will require monthly rate decreases x 3 to a goal lower rate limitof 60 beats per minute. Patient was instructed to take extra strength Tylenol every 6 hours for incision pain. Site care, activity and driving restrictions were reviewed prior to discharge. Prior to discharge she was able to ambulate, eat, drink, and void. OBJECTIVE PHYSICAL EXAMINATION General: appears to be in no acute distress. Neuro: Alert and oriented x 4 Heart: regular rate and rhythm Extremities: 2+ pedal pulses Wound: right femoral access site clean and dry without hematoma. DISCHARGE DISPOSITION: Home. CONDITION AT DISCHARGE: Stable. Primary Care Provider Primary Care Provider Other Providers: Patient Care Team: Jay Guzman M.B.B.S., M.D. as PCP - General (Family Medicine) Perry Lozano M.D., M.P.H. as Blanker Press Operator Physician (Cardiovascular Diseases Electrophysiology) Zenia Wright APRN, C.N.Jcak, M.S.N. as Nurse Practitioner (Cardiovascular Diseases) documented in this encounter Discharge Instructions * Discharge Instructions* Ankit Rodriguez R.N. - 08/29/2025 9:40 AM CDT You were discharged from the [facility] CVD Interventional/Heart Rhythm Service. Please identify this service name if you call with questions after hospitalization. Leadless Permanent Pacemaker Implant Instructions [place] Aveir Care of your Groin Puncture Site Call your physician if any of the following symptoms occur: Bleeding or inflammation at the puncture site(s). New or expanding swelling. Pain or discomfort at the puncture site that is not relieved by acetaminophen (Tylenol). Signs of infection (redness, drainage, fever) at the puncture site Change in color, temperature, or sensation in the arm or leg of the puncture site. Unusual feelings of weakness or faintness. If you have active bleeding or swelling of the puncture site: Call 911 or your designated emergency number. Lie down and apply firm pressure with two or three fingers over the puncture site until help arrives. Do not try to drive yourself to the hospital. Activity: Up to three days after your procedure, avoid strenuous activities and do not participate in sports. Do not: Lift or move heavy (weighing more than 10 pounds) objects Do strenuous exercise (biking, weight lifting, aerobics, golfing) Strain Climb stairs Participate in sexual activity Bathing: Remove the bandage the day after the procedure. You may shower the morning after your procedure. Do not soak the puncture site in a tub for three days. Keep the site clean and dry. Do not use creams or powders on the site. Discomfort with puncture site: Normally, the site of the puncture is slightly tender and swollen. There may be a small area of discoloration or a small knot in the area of the puncture. Tenderness atthe puncture site may persist for 24 to 48 hours. You may take a non-aspirin pain reliever containing acetaminophen such as Tylenol in the recommended dose as needed for discomfort. Routine Pacemaker Follow-up: In-clinic appointments will be scheduled for you for 3-months from implant. Routine in clinic follow-up dates will be scheduled every 3 months after this appointment. For rescheduling of an in-clinic device check, please call [phone]. If you plan to have your device followed locally, YOU are responsible for scheduling an appointment with a device specialist in 3 months. This appointment is very important as adjustments are madewhich will affect the device battery. If you wish to have your local clinic follow your remote transmitter as well, please contact us to request this transfer at or [phone]. Important points regarding living with a pacemaker You will receive a temporary identification card for your pacemaker before you leave the hospital. Keep this ID card with you at all times. The resource economist of the pacemaker will send you a permanentcard. Tell all health care providers you have a pacemaker, especially if having surgery or another procedure. Consider wearing a medical identification necklace or bracelet so that emergency medical personnel know you have a pacemaker. Pacemakers may be affected by certain types of electrical interference. Don't carry your cell phonedirectly over your pacemaker. Stay away from an field research associate, powerful magnets or heavy industrial equipment. If you feel dizzy or lightheaded when near equipment, move away from it. Important contact information: [place] [phone] Question or concerns? Call [facility] at or [phone] Thursday - Thursday, 8:00 AM - 4:30 PM ADMINISTRATIVE STAFF SUPERVISOR. For rescheduling of an in-clinic device check, please call [phone]. ALWAYS call [phone] in the event of an emergency documented in this encounter Medications at Time of Discharge [...] Take 1 capsule by mouth daily. vitamins A,C,X-eqqn-nqqbg r (PRESERVISION AREDS) 7,160 Units-113 mg-100 Units per tablet Take 1 tablet by mouth daily. documented as of this encounter Progress Notes * Renetta Connor APRN, C.N.P., D.N.P. - 08/30/2025 4:59 PM CDT SUBJECTIVE Miss Carlisle was seen and examined in her room today following Aveir leadless permanent pacemaker implantation and AV node ablation performed by Dr. Lozano. There were no known complications. Currently, Miss Carlisle feels relatively well. She is resting comfortably in bed. VITALS Vitals: 08/30/25 1830 BP: (!) 139/92 Pulse: 101 Resp: 18 Temp: SpO2: 94% PHYSICAL EXAM General: 80-year-old female in no acute distress. WOUND Right femoral catheter insertion site is clean, dry and intact. No bleeding. No hematoma. Stop[place] in place. Hospital Problems as of 08/30/2025 1. * (Principal) Ablation Atrioventricular Node Status Post August 2025 2. Pacemaker Cardiac Status Post Status post Aveir leadless permanent pacemaker implantation, August 2025 3. Atrial Fibrillation Longstanding Persistent (HCC) 4. Hyperlipidemia 5. Regurgitation Mitral 6. Chronic Diastolic (Congestive) Heart Failure (HCC) 7. Atypical Atrial Flutter (HCC) 8. Atrial Fibrillation Permanent (HCC) 9. Apnea Sleep Obstructive IMPRESSION/REPORT/PLAN Miss. Carlisle is status post Aveir leadless permanent pacemaker implantation and AV node ablation performed by Dr. Lozano. There were no known complications. Oral and IV pain medications were ordered as needed for any sheath site discomfort. Miss Carlisle will undergo a chest x-ray later today to assess for device lead placement and assessfor pneumothorax. She will be held NPO after midnight until her device is interrogated tomorrow morning. If there are no signs of complications and she does well we anticipate dismissal from the hospital tomorrow morning. Renetta Connor APRN, C.N.P., D.N.P. documented in this encounter Procedure Notes * Tanya Carbajal M.D. - 08/30/2025 3:33 PM CDT POST-PROCEDURE NOTE Pre-procedure diagnosis: Poorly Controlled Atrial Fibrillation Procedure: Leadless pacemaker implantation (RV AVIER) AV nicholas ablation Proceduralist: Primary: Perry Lozano M.D. Fellow: Tanya Carbajal MD Brief Operative Note: (please refer to full operative report when available) Christie Carlisle was brought to the Electrophysiology Laboratory, prepped and draped in the usual sterile fashion. Using the modified Seldinger technique, the right femoral vein was punctured percutaneously leaving a guidewire in place. Following this, an 8-New Zealander sheath was advanced in to the vein. Through this, an Amplatzer stiff guidewire was advanced to the superior vena cava. The 8-[place]ander sheath was then removed and the right femoral vein was serially dilated using in order to accommodate the guiding catheter for the leadless pacemaker. Finally, we were able to advance the 27-[place] Ze[place]ander sheath/dilator through the right femoral vein, and advanced it up to the mid aspect of the right atrium. The dilator and guidewire were removed, leaving the sheath in place. The sheath was flushed continuously. With the sheath positioned in mid right atrium, we advanced the delivery tool loaded with the pacemaker under fluoroscopic guidance. When it reached the tip of the sheath, the sheath was then pulled down, exposing the delivery catheter. Utilizing HAMILTON and PUERTO RICAN fluoroscopic views, the delivery catheter was carefully advanced through the tricuspid valve to the right ventricular septum. Joseph injected contrast to confirm position of the delivery catheter. Once adequate position of the delivery system was assured, we then advanced the leadless pacemaker out the delivery cuff. At that point, we confirmed good apposition of the tip of the device against the myocardium using contrast injection. The pacemaker sensing and capture thresholds were satisfactory. After that, we fully then fully deployed and pulled the delivery system away from the device. The device appeared to be stable. After that we turned our attention to preforming the AVN ablation. An Agilist sheath was inserted through the Avier sheath.Through this, non- irrigated tip radiofrequency ablation catheter was advanced to the medial tricuspid annulus region. The catheter was then advanced to the right ventricle and then withdrawn slowly until a His potential was identified. The catheter was slightly withdrawn from its location to a site more proximal where a small His potential was evident along with atrial and ventricular electrograms. Radiofrequency energy was then applied atthe site using temperature-controlled system . Complete heart block was achieved. We continued for 120 seconds and gave another reassurance lesion for 30 seconds . At the conclusion, there was an escape rhythm at a pacemaker setting of VVI 40 bpm. The patient was observed for 20 minutes post ablation with no return of AV conduction. Patient tolerated the procedure well. At the end of the procedure, the device was reprogrammed to VVI 90bpm. Hemostasis was achieved with a figure of 8 suture placed at the right femoral venous access site prior to removing the delivery sheath. Complications: No acute complications Recommendations: 1) Transfer to the floor. 2) Strict bedrest for 2 hours following sheath pull. 3) Chest x-ray and device interrogation prior to discharge. 4) Ensure right groin suture pull before discharge 5) Follow-up in device clinic in 3 months. 6) Device check tomorrow before discharge Complications None Anesthesia Monitored anesthesia Estimated blood loss Estimated Blood Loss: 1-75 ml Tanya Carbajal M.D. 08/30/2025 documented in this encounter Nursing Notes * Mei Murillo R.N. - 08/31/2025 12:27 PM CDT Dismissal Summary complete. Summary was discussed and understood by the patient prior to discharge.Educational material complete. Patient verbalized understanding of content. documented in this encounter Miscellaneous Notes * Hospital Course - Pamela Melissa APRN, C.N.P., M.S.N. - 08/31/2025 7:38 AM CDT Christie Carlisle is a 80-year-old with recurrent atrial fibrillation/flutter status post prior surgical Maze procedure and catheter ablation in November 2024. She presented for leadless Avier pacemaker implantation and AV node ablation performed by Dr. Lozano on 08/30/2025. She was admitted for overnight observation given pacemaker dependency. Her overnight course was uneventful. Right femoral access site has remained free of bleeding or hematoma. Overnight telemetry demonstrates ventricular pacing with occasional ventricular ectopy consistent with baseline Holter monitor findings. Chest x-ray demonstrates leadless pacemaker in anticipated position. Device interrogation prior to hospital discharge was satisfactory. Device is programmed VVIR at 90 beats per minute. She will require monthly rate decreases x3 to a goal lower rate limit of 60 beats per minute. documented in this encounter Plan of Treatment Upcoming Encounters Date Type Department Care Team (Late st Contact Info) Description 09/06/2025 10:20 AM CDT Office Visit Department of Family Medicine, [facility], in [place], [place] [address] [place] [address] Jay Guzman M.B.B.S., M.D. [address] [place] [address] 10/24/2025 1:00 PM ADMINISTRATIVE STAFF SUPERVISOR Appointment Department of Cardiovascular Diseases in [place], [place] [address] [place] [address] Jorge Ordaz M.D. [address] [place] [address] Pending Results Name Type Priority Associated Diagnoses Date/Time Heart Rhythm Procedure Electrophysiology Routine Atrial Fibrillation Permanent (HCC) 08/30/2025 3:33 PM CDT Cardiac Device Interrogation Implantable Cardiac Device Routine 08/31/2025 9:14 AM CDT Scheduled Orders Name Type Priority Associated Diagnoses Orde r Schedule Heart Rhythm Procedure Electrophysiology Routine Atrial Fibrillation Permanent (HCC) Once for 1 Occurrences starting 08/23/2025 until 08/23/2025 Scheduled Referrals Name Type Priority Associated Diagnoses Order Schedule Transitional Care Managment Nurse Visit (clinic) Outpatient Referral Routine Expected: 09/01/2025, Expires: 08/31/2026 documented as of this encounter Procedures Procedure Name Priority Date/Time Associated Diagnosis Comments CAR CARDIAC DEVICE INTERROGATION Routine 08/31/2025 9:14 AM CDT Procedure Note - Entry ProcessorCarl M.D. - 08/31/2025 9:14 AM CDTThis note is in progress. IMPRESSION: Encounter Impression: Title: Normal In-Office: No Events * Normal Device Function: One day post implant * Alerts or events: None * Battery: MOS, * Sensing, impedance and thresholds reviewed and tested * Presenting Rhythm: V paced at 90 bpm * Underlying Rhythm: CHB with V escape at 35 bpm * Heart Rate Histograms reviewed: 90-110 bpm * Pacing and Detection Parameters were evaluated Additional Notes: Right femoral access site covered in bandaid which isC/D/I. Plan: This patient underwent device interrogation. I agree that the deviceinterrogation was medically indicated to provide appropriate care andcontinue routine device interrogations as indicated. Encounter Summary: This report includes 1 transmission that was receivedon 2025-08-31. Battery, lead impedance, sensing amplitude and pacingthreshold data was reviewed. DX CHEST AP OR PA AND LATERAL 2 VIEWS RAD - Routine (most inpatients and all outpatients) 08/30/2025 9:16 PM CDT ECG Routine 08/30/2025 3:55 PM CDT ADULT OXYGEN THERAPY Routine 08/30/2025 3:44 PM CDT ADULT OXYGEN THERAPY Routine 08/30/2025 3:44 PM CDT ADULT OXYGEN THERAPY Routine 08/30/2025 3:44 PM CDT CAR CARDIAC DEVICE INTERROGATION Routine 08/30/2025 3:37 PM CDT documented in this encounter Results * DX Chest AP or PA and Lateral 2 Views (08/30/2025 9:16 PM CDT) Anatomical Region Laterality Modality Chest, Thoracic RST LOS, Tho racic ARZ LOS, Thoracic FLA LOS N/A Digital Radiography Impressions 08/31/2025 3:25 AM CDT Since 08/24/2025, interval placement of a leadless pacemaker. Mild increase in bibasilar atelectasis. No additional significant change. Sternotomy with MVR and tricuspid annuloplasty. Cardiomegaly. Fibrosis in the lung bases. Pulmonary venous hypertension. Thoracolumbar curve. Narrative 08/31/2025 3:25 AM CDT EXAM: DX CHEST AP OR PA AND LATERAL 2 VIEWS Procedure Note Kamala Duncan M.D. - 08/31/2025 EXAM: DX CHEST AP OR PA AND LATERAL 2 VIEWS IMPRESSION: Since 08/24/2025, interval placement of a leadless pacemaker. Mild increasein bibasilar atelectasis. No additional significant change. Sternotomywith MVR and tricuspid annuloplasty. Cardiomegaly. Fibrosis in the lungbases. Pulmonary venous hypertension. Thoracolumbar curve. Lewis Merchant P.A.-C. IMG DIAGNOSTIC IMAGING MD OCEDURES Final Result * ECG 12 Lead (08/30/2025 3:55 PM CDT) Ventricular Rate ECG/Min 96 BPM MUSE QRSD Interval 150 ms MUSE QT Interval 422 ms MUSE QTC Interval 533 ms MUSE R [place] 224 degrees MUSE T Wave [place] -23 degrees MUSE 08/30/2025 3:55 PM CDT 08/30/2025 4:01 PM CDT Impressions MUSE - 08/30/2025 3:59 PM CDT Ventricular-paced rhythm Atrial fibrillation Prolonged QT When compared with ECG of 24-Aug-2025 10:04, Electronic ventricular pacemaker has replaced Atrial fibrillation QT has lengthened Vent. rate Decreased 38 bpm Reviewed by MONALISA Colón Revised Report Narrative Procedure Note Cesar Thurman M.D. - 08/30/2025 IMPRESSION: Ventricular-paced rhythm Atrial fibrillation Prolonged QT When compared with ECG of 24-Aug-2025 10:04, Electronic ventricular pacemaker has replaced Atrial fibrillation QT has lengthened Vent. rate Decreased 38 bpm Reviewed by MONALISA Colón Revised Report us Lewis Merchant P.A.-C. ECG ORDERABLES Edited Re sult - Final MUSE NA * CARDIOVASCULAR IMPLANTABLE ELECTRONIC DEVICE - NO CHARGE (08/30/2025 3:37 PM CDT) Date Time Interrogation Session [id number] [facility] Implantable Pulse Generator Medical Economics Consultant [facility] Implantable Pulse Generator Type Pacemaker [facility] Implantable Pulse Generator Model Aveir LP [id number] [facility] Implantable Pulse Generator Serial Number [id number] [facility] Lead Channel Sensing Intrinsic Amplitude 8.900 [facility] Lead Channel Setting Sensing Sensitivity 2.00 [facility] Lead Channel Impedance Value 480 [facility] Lead Channel Pacing Threshold Amplitude 0.500 [facility] Lead Channel Pacing Threshold Pulse Width 0.4 [facility] Lead Channel Measurements Date and Time [id number] [facility] Lead Channel Setting Pacing Amplitude 3.500 [facility] Lead Channel Setting Pacing Pulse Width 0.4 [facility] Santy Setting Mode (NBG Code) VVIR [facility] Ventricular chambers paced during SWATCH PASTER pacing. RV [facility] Santy Setting Lower Rate Limit 90 [facility] Santy Setting Maximum Sensor Rate 120 [facility] Anatomical Region Laterality Modality Other 08/30/2025 4:22 PM CDT Impressions 08/30/2025 4:22 PM CDT Encounter Impression: Title: New Device Implanted * New Device (Leadless Aveir VR) Implant Date: 08/30/2025 * Device implanted by Dr. Lozano at [facility] * Programmed parameters were reviewed * Underlying Rhythm: A-fib RVR @ 100-140 BPM (prior to pacemaker implant/AVNA)/A-fib w/ Ventricular Escape @ 35-40 BPM (post AVNA) * Temporary Pacemaker Used: N * Temporary Pacemaker Site: NA * Dressing: Right Femoral groin- Figure 8 stitch w/ stopcock and gauze and tegaderm * Same Day Dismissal: N, admitted for overnight observation * Summary: All device function appears normal * Interrogation performed by: Avelino Zurita Additional Notes: *AVNA done at end of pacemaker implant. Programmed VVIR @ 90 BPM and will need 3 x rate decreases over the next 3 months per AVNA protocol. Plan: This patient underwent device interrogation. I agree that the device interrogation was medically indicated to provide appropriate care and continue routine device interrogations as indicated. Encounter Summary: This report includes 1 transmission that was received on 2025-08-30. Battery, lead impedance, sensing amplitude and pacing threshold data was reviewed. Narrative Procedure Note Jamar Gan M.D. - 08/30/2025 IMPRESSION: Encounter Impression: Title: New Device Implanted * New Device (Leadless Aveir VR) Implant Date: 08/30/2025 * Device implanted by Dr. Lozano at [facility] * Programmed parameters were reviewed * Underlying Rhythm: A-fib RVR @ 100-140 BPM (prior to pacemakerimplant/AVNA)/A- fib w/ Ventricular Escape @ 35-40 BPM (post AVNA) * Temporary Pacemaker Used: N * Temporary Pacemaker Site: NA * Dressing: Right Femoral groin- Figure 8 stitch w/ stopcock and gauze andtegaderm * Same Day Dismissal: N, admitted for overnight observation * Summary: All device function appears normal * Interrogation performed by: Avelino Zurita Additional Notes: *AVNA done at end of pacemaker implant. ProgrammedVVIR @ 90 BPM and will need 3 x rate decreases over the next 3 months perAVNA protocol. Plan: This patient underwent device interrogation. I agree that the deviceinterrogation was medically indicated to provide appropriate care andcontinue routine device interrogations as indicated. Encounter Summary: This report includes 1 transmission that was receivedon 2025-08-30. Battery, lead impedance, sensing amplitude and pacingthreshold data was reviewed. Luke Solorio M.D., M.S. CV IMPLANTABLE CARDIAC DEVICE Final Result documented in this encounter Visit Diagnoses Diagnosis Ablation Atrioventricular Node Status Post- Primary Atrial Fibrillation Permanent (HCC) Atrial Fibrillation Longstanding Persistent (HCC) Regurgitation Mitral Hyperlipidemia Chronic Diastolic (Congestive) Heart Failure (HCC) Atypical Atrial Flutter (HCC) Apnea Sleep Obstructive Pacemaker Cardiac Status Post documented in this encounter Admitting Diagnoses Diagnosis Atrial Fibrillation Permanent (HCC) Atrial Fibrillation Unspecified (HCC) Atrial Fibrillation Longstanding Persistent (HCC) documented in this encounter Administered Medications Inactive Administered Medications - up to 3 most recent administrations Medication Order MAR Action Action Date Dose Rate Site acetaminophen tablet 1,000 mg (TylenoL) 1,000 mg, oral, Every 6 hours PRN, mild pain or score 1-3 of 10, Starting on Thu08/30/25 at 1544, Postprocedure (CV) Given 08/30/2025 8:23 PM CDT 1,000 mg fentaNYL injection 25 mcg (Sublimaze) 25 mcg, intravenous, Every 2 hour PRN, moderate pain or score 4-6 of 10, Starting on Thu08/30/25 at 1544, Postprocedure (CV), May repeat x1 dosing interval, if patient unable to take oral analgesics or oral analgesics are ineffective fentaNYL injection 50 mcg (Sublimaze) 50 mcg, intravenous, Every 2 hour PRN, severe pain or score 7-10 of 10, Starting on Thu08/30/25 at 1544, Postprocedure (CV), May repeat x1 dosing interval, if patient unable to take oral analgesics or oral analgesics are ineffective melatonin tablet 3 mg 3 mg, oral, Bedtime PRN, sleep, Starting on Thu08/30/25 at 1424, Postprocedure (CV) polyethylene glycol powder packet 17 g (Miralax) 17 g, oral, Daily PRN, constipation, Starting on Thu08/30/25 at 1424, Postprocedure (CV), Dissolve in 240 mLs (8 ounces) of water prior to giving. Avoid mixing with starch-based thickened liquids. documented in this encounter Active and Recently Administered Medications Times are shown in CDT. PRN Medication Order 08/29/2025 08/30/2025 08/31/2025 acetaminophen tablet 1,000 mg (TylenoL) 1,000 mg, oral, Every 6 hours PRN, mild pain or score 1-3 of 10, Starting on Thu08/30/25 at 1544, Postprocedure (CV) 2022 (Given - Provider: Gurpreet Goldman R.N.) atropine injection 0.5 mg 0.5 mg, intravenous, Once as needed, for pulse less than 50 beats per minute, Starting on Thu08/30/25 at 1544, For 1 dose, Postprocedure (CV) fentaNYL injection 25 mcg (Sublimaze)(Linked Group 1) 25 mcg, intravenous, Every 2 hour PRN, moderate pain or score 4-6 of 10, Starting on Thu08/30/25 at 1544, Postprocedure (CV), May repeat x1 dosing interval, if patient unable to take oral analgesics or oral analgesics are ineffective fentaNYL injection 50 mcg (Sublimaze)(Linked Group 1) 50 mcg, intravenous, Every 2 hour PRN, severe pain or score 7-10 of 10, Starting on Thu08/30/25 at 1544, Postprocedure (CV), May repeat x1 dosing interval, if patient unable to take oral analgesics or oral analgesics are ineffective iohexoL 300 mg iodine/mL solution (Omnipaque) (CANCELED) Code/trauma/sedation medication, Starting on Thu08/30/25 at 1432, Intraprocedure (CV) 1432 (Given - Provider: Perry Lozano M.D., M.P.H. - Comment: device localization) lidocaine 10 mg/mL (1 %) injection (Xylocaine) (CANCELED) Code/trauma/sedation medication, Starting on Thu08/30/25 at 1443, Intraprocedure (CV) 1443 (Given - Provider: Perry Lozano M.D., M.P.H.) melatonin tablet 3 mg 3 mg, oral, Bedtime PRN, sleep, Starting on Thu08/30/25 at 1424, Postprocedure (CV) naloxone injection 0.2 mg (Narcan) 0.2 mg, intravenous, As needed, respiratory depression, Starting on Thu08/30/25 at 1544, Postprocedure (CV), For RASS Score -4 or less, respiratory rate of less than 8 breaths/min. Notify provider/service and rapid response team (if available at institution). polyethylene glycol powder packet 17 g (Miralax) 17 g, oral, Daily PRN, constipation, Starting on Thu08/30/25 at 1424, Postprocedure (CV), Dissolve in 240 mLs (8 ounces) of water prior to giving. Avoid mixing with starch-based thickened liquids. prochlorperazine injection 5 mg (Compazine) 5 mg, intravenous, Every 6 hours PRN, nausea, vomiting, Starting on Thu08/30/25 at 1544, Postprocedure (CV), RASS must be -2 or higher to administer. Reassess for nausea/vomiting after at least 10 minutes. (order for antiemetic medication administration ondansetron then prochlorperazine). Linked Groups Order Group 1: fentaNYL injection 25 mcg (Sublimaze)Jump to med 25 mcg, intravenous, Every 2 hour PRN, moderate pain or score 4-6 of 10, Starting on Thu08/30/25 at 1544, Postprocedure (CV), May repeat x1 dosing interval, if patient unable to take oral analgesics or oral analgesics are ineffective Or fentaNYL injection 50 mcg (Sublimaze)Jump to med 50 mcg, intravenous, Every 2 hour PRN, severe pain or score 7-10 of 10, Starting on Thu08/30/25 at 1544, Postprocedure (CV), May repeat x1 dosing interval, if patient unable to take oral analgesics or oral analgesics are ineffective documented in this encounter Additional Health Concerns Assessment Noted Time PHQ-9 Depression Total Score: 0 12/02/19 25 3:00 PM 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 [address] [place] [phone] PCP - General Family Medicine 09/20/20 documented as of this encounter
--- OUTSIDE RECORDS SUMMARY | 2025-08-30 11:46 | XMS_ITS | Encounter Summary ---
Author Organization [facility] Address [address] [place] [address] Care Team Providers Care Printer Slotter Helper Name Role Phone Jay Guzman M.D. Primary Care john Reason for Visit * Auth/Cert (Routine) Specialty Diagnoses / Procedures Referred By Osvaldo keith Referred To Contact Diagnoses Atrial Fibrillation Permanent (HCC) Atrial Fibrillation Permanent (HCC) [I48.21] Procedures [place] INS/RPLC PCMKR ATRIAL & VENT PPM IMPLANT Perry Lozano M.D., M.P.H. [address] [place] [phone] Phone: tel: fax: Referral ID Status Reason Start Date Expiration Date Visits Re quested Visits Authorized [id number] 1 1 Encounter Details Date Type Department Care Team (Late st Contact Info) Description 08/30/2025 11:46 AM CDT - 08/30/2025 2:26 PM CDT Surgery Division of Cardiovascular Diseases in [place], [place] [address] [place] [address] Perry Lozano M.D., M.P.H. [address] [place] [phone] PPM IMPLANT Social History Tobacco Use Types Packs/Day Years [...] things needed for daily living? No 08/31/2025 [facility] Utilities Answer Date Recorded In the past 12 months has [facility] [employer], gas, oil, or water [employer] threatened to shut off services in your home? No 08/31/2025 Depression Answer Date Recor ded PHQ-9 Total Score (max 27) 0 12/02 Housing Stability Answer Date Recorded What is your living situation today? [facility] have a [facility] to live 08/31/2025 Education Answer Date Recorded What is the highest level of school you have completed or the highest degree you have received? 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 The patient will be contacted by [facility] to set up this appointment. After this appointment, routine follow-up will continue with remote home monitoring. A remote home monitor has been given to the patient. They were instructed to verify communication between the monitor and the deviceand instructed to send a transmission within the first week after returning home. Then call the [facility] at ([phone]) during regular business hours (Thursday-Thursday, 8 a.m. [...] (Family Medicine) Perry Lozano M.D., M.P.H. as Cryptographic Technician Physician (Cardiovascular Diseases Electrophysiology) Zenia Wright APRN C.N.P., M.S.N. as Nurse Practitioner (Cardiovascular Diseases) documented in this encounter Discharge Instructions * Discharge Instructions* Ankit Rodriguez R.N. - 08/29/2025 9:40 AM CDT You were discharged from the [facility] CVD Interventional/Heart Rhythm Service. Please identify this [...] of an in-clinic device check, please call [phone]. If you plan to have your device followed locally, YOU are responsible for scheduling an appointment with a device specialist in 3 months. This appointment is very important as adjustments are madewhich will affect the device battery. If you wish to have your local clinic follow your remote transmitter as well, please contact us to request this transfer at or [phone]. Important points regarding living with a pacemaker You will receive a temporary identification card for your pacemaker before you leave the hospital. Keep this ID card with you at all times. The sole buffer of the pacemaker will send you a [...] over your pacemaker. Stay away from an research asst, powerful magnets or heavy industrial equipment. If you feel dizzy or lightheaded when near equipment, move away from it. Important contact information: [place] / [facility] [phone] Question or concerns? Call [facility] at or [phone] Thursday - Thursday, 8:00 AM - 4:30 PM SENIOR DEVOPS ENGINEER. For rescheduling of an in-clinic device check, please call [phone]. ALWAYS call [phone] in the event of an emergency documented [...] Take 1 capsule by mouth daily. vitamins A,C,K-jerd-yoxpj r (PRESERVISION AREDS) 7,160 Units-113 mg-100 Units [...] a guidewire in place. Following this, an 8-Tristanian sheath was advanced in to the vein. Through this, an Amplatzer stiff guidewire was advanced to the superior vena cava. The 8-Tristanian sheath was then removed and the right femoral vein was serially dilated using in order to accommodate the guiding catheter for the leadless pacemaker. Finally, we were able to advance the 27-Tristanian sheath/dilator through the right femoral vein, and [...] exposing the delivery catheter. Utilizing HAMILTON and MARTINIQUAIS fluoroscopic views, the delivery catheter was carefully [...] * Hospital Course - Pamela Melissa APRN, C.N.Jack, M.S.N. - 08/31/2025 7:38 AM CDT Christie [...] CDT Office Visit Department of Family Medicine, [facility], in [address] [place] [address] Jay Guzman M.B.B.S., M.D. [address] [place] [address], [place] [phone] 10/24/2025 1:00 PM SENIOR DEVOPS ENGINEER Appointment Department of Cardiovascular Diseases in [place], [place] [address] [place] [address] Jorge Ordaz M.D. [address] [facility] [place] [address] Pending Results Name Type Priority Associated Diagnoses [...] 08/31/2025 9:14 AM CDT Procedure Note - Certified Forklift OperatorCarl M.D. - 08/31/2025 9:14 AM CDTThis note [...] the lungbases. Pulmonary venous hypertension. Thoracolumbar curve. us Lewis Merchant P.A.-C. IMG DIAGNOSTIC IMAGING [place] OCEDURES Final Result * ECG 12 Lead (08/30/2025 3:55 PM CDT) Ventricular Rate ECG/Min 96 BPM MUSE QRSD Interval 150 ms MUSE QT Interval 422 ms MUSE QTC Interval 533 ms MUSE R Kenton 224 degrees MUSE T Wave Kenton -23 degrees MUSE 08/30/2025 3:55 PM CDT [...] bpm Reviewed by MONALISA Colón Revised Report Lewis Merchant P.A.-C. ECG ORDERABLES Edited Re sult - Final MUSE NA * CARDIOVASCULAR IMPLANTABLE ELECTRONIC DEVICE - NO CHARGE (08/30/2025 3:37 PM CDT) Date Time Interrogation Session [id number] [facility] Implantable Pulse Generator Vacuum Furnace Operator [facility] Implantable Pulse Generator Type Pacemaker [facility] Implantable Pulse Generator Model Aveir LP [id number] [facility] Implantable Pulse Generator Serial Number [id number] [facility] Lead Channel Sensing Intrinsic [...] [facility] Ventricular chambers paced during FINANCIAL SYSTEMS ANALYST pacing. RV [facility] Santy Setting Lower Rate Limit 90 [facility] Santy Setting Maximum Sensor Rate 120 [facility] Anatomical Region Laterality Modality Other 08/30/2025 4:22 PM CDT Impressions 08/30/2025 4:22 PM CDT Encounter Impression: Title: New Device Implanted * New Device (Leadless Aveir VR) Implant Date: 08/30/2025 * Device implanted by Dr. Lozano at [facility] * Programmed parameters were reviewed * Underlying [...] * Device implanted by Dr. Lozano at [facility] * Programmed parameters were reviewed * Underlying [...] sensing amplitude and pacingthreshold data was reviewed. us Luke Solorio M.D., M.S. CV IMPLANTABLE CARDIAC DEVICE Final Result documented in this encounter Visit Diagnoses Diagnosis Atrial Fibrillation Permanent (HCC) Atrial Fibrillation Longstanding Persistent (HCC) Regurgitation Mitral Hyperlipidemia Chronic Diastolic (Congestive) Heart Failure (HCC) Atypical Atrial Flutter (HCC) Apnea Sleep Obstructive Atrial Fibrillation Permanent (HCC) documented in this encounter Admitting Diagnoses Diagnosis [...] ineffective iohexoL 300 mg iodine/mL solution (Omnipaque) Code/trauma/sedation medication, Starting on Thu08/30/25 at 1432, Intraprocedure (CV) Given 08/30/2025 2:32 PM CDT 8 mL lidocaine 10 mg/mL (1 %) injection (Xylocaine) Code/trauma/sedation medication, Starting on Thu08/30/25 at 1443, Intraprocedure (CV) Given 08/30/2025 2:43 PM CDT 10 mL Right Groin melatonin tablet 3 mg 3 mg, oral, [...] Total Score: 0 12/02/19 25 3:00 PM SENIOR DEVOPS ENGINEER A fall risk assessment has been complete d for the patient 09/12/2022 10:09 AM CDT documented as of this encounter Care Teams Printer Slotter Helper Relationship Specialty Start Date End Date Jay Guzman M.B.B.S., M.D. [address] [place] [phone] PCP - General Family Medicine 09/20/20 documented as of this encounter
--- OUTSIDE RECORDS SUMMARY | 2025-08-30 13:26 | XMS_ITS | Encounter Summary ---
Author Organization [facility] Address [address] [place] [address] Care Team Providers Care Wood Club Neck Whipper Name Role Phone Jay Guzman M.D. Primary Care [facility] Reason for Visit * Auth/Cert (Routine) Specialty Diagnoses / Procedures Referred By Osvaldo keith Referred To Contact Diagnoses Atrial Fibrillation Permanent (HCC) Atrial Fibrillation Permanent (HCC) [I48.21] Procedures IN INS/RPLC PCMKR ATRIAL & VENT PPM IMPLANT Perry Lozano M.D., M.P.H. [address] [place] [phone] Phone: tel: fax: Referral ID Status Reason Start Date Expiration Date Visits Re quested Visits Authorized [id number] 1 1 Encounter Details Date Type Department Care Team (Late st Contact Info) Description 08/30/2025 1:26 PM CDT Anesthesia Event Division of Cardiovascular Diseases in [place], [place] [address] [place] [phone] Katerine Hayward, FRANCIS, PORCELAIN FINISH SPRAYER, DNAP [address] [place] [phone] Robert Nava APRN, PORCELAIN FINISH SPRAYER, DNAP [address] [place] [phone] Anesthesia Record Procedure Summary Procedure Name Responsible Anesthesiologist Anesthesia Start Time Anesthesia Stop Time PPM IMPLANT Leeanne Haywardmarla Wade AP RN, PORCELAIN FINISH SPRAYER, DNAP 08/30/25 1326 08/30/25 1546 Events Date Time Event Comment 08/30/2025 1326 An Start Machine/Equipme nt Checked Infection Precautions Followed Procedure/Site Verified NPO Status Verified Supine Standard ASA Monitors Applied 1327 Turnover to Proceduralist 1408 Proc Start 1428 Anes CS Handoff I, Katerinemarla avila, SALES OPERATIONS SPECIALIST, PORCELAIN FINISH SPRAYER, DNAP, attest that I have reconciled the controlled substances and that I have reviewed all the significant information with the next anesthesia provider assuming care of this patient. 1531 Proc Fin 1532 Turnover to ANE Staff 1534 an stop data 1546 An End I completed my handoff to the receiving staff during which we 1. Identified the patient 2. Identified the responsible provider 3. Reviewed the pertinent medical history 4. Discussed the surgical course 5. Reviewed intra-op anesthesia management and issues during anesthesia 6. Set expectations for post-procedure period 7. Allowed opportunity for questions and acknowledgement of understanding. Meds Name Total ondansetron PF 4 mg/2 mL injection 4 mg propofol 10 mg/mL infusion 591.36 mg phenylephrine infusion 80 mcg/mL in NaCl 0.9% 250 mL (premix/CNR) 1.96 mg remimazolam (Byfavo) injection (RESTRICT ED) 6 mg ceFAZolin (Ancef) injection 1 g/5 mL 2 g heparin injection 1,000 Units/mL 5,000 U nits acetaminophen injection 1,000 mg/100 mL (RESTRICTED) 1,000 mg Lactated Ringers Free Drip 400 mL * Agents No agents on file. * Blood No blood administrations on file. Lines, Drains, and Airways Type Details Placement Removal Peripheral IV Placement Date: 08/30/25; Placement Time: 1243; Catheter Size: 20 G; Orientation: Anterior, Left, Lower; Location: Forearm; Site Prep: Chlorhexidine (Preferred); Technique: Anatomical landmarks; Inserted by: Maite; Insertion Attempts: 1; Removal Date: 08/31/25; Removal Time: 1224 08/30/25 1243 by Maite Graves, R.N. 08/31/25 1224 by Mei Murillo, R.N. Percutaneous Access Site 08/30/25; 1414; Temporary (non-tunneled, non-implanted) (Leadless Aveir VR pacemaker insertion access site); Venous; Right Femoral; Other (Comment) (27 Fr.); 08/31/25; 1224 08/30/25 1414 by Charlie Zurita, R.N. 08/31/25 1224 by Mei Murillo R.N. documented in this encounter Social History Tobacco Use Types Packs/Day Years [...] things needed for daily living? No 08/31/2025 [facility] Utilities Answer Date Recorded In the past 12 months has e electric, gas, oil, or water company threatened to shut off services in your home? No 08/31/2025 Depression Answer Date Recor ded PHQ-9 Total Score (max 27) 0 12/02 Housing Stability Answer Date Recorded What is your living situation today? I have a [facility] place to live 08/31/2025 Education Answer Date Recorded What is the highest level of school you have completed or the highest degree you have received? 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 AM DIGITAL ACCOUNT EXECUTIVE Gender Identity Female 08/18/2021 8:27 PM CDT Sexual Orientation Not on file Occupation Industry Job Start Date Job End Date [employer] Not on file Not on file Not on file Not on file Not on file Not on file Not on file documented as of this encounter OR Notes * Anesthesia Preprocedure Evaluation - Katerine Hayward, FRANCIS, GEO, DNAP - 08/30/2025 1:58 PM CDT Preprocedure Anesthesia & H&P Assessment Procedure Summary Anesthesia Start Date/Time: 08/30/25 1326 Procedure: PPM IMPLANT - transvene vs leadless will be decided a.m. of procedure Diagnosis: Atrial Fibrillation Permanent (HCC) [I48.21] Pre-op diagnosis: Atrial Fibrillation Permanent (HCC) [I48.21] Location: [place] [address] / [facility] Surgeons: Perry Lozano M.D., M.P.H. Pertinent components of the patient's history including current problem list, medical history, surgical history, family history, social history, medications and allergies were reviewed. Present illness and pre-op diagnosis were confirmed. The planned surgery / procedure was verified with the patient / legal guardian. The patient's general health condition remains unchanged RELEVANT COMORBID CONDITIONS CV (+) Atrial Fibrillation Longstanding Persistent (HCC) (+) Atrial Fibrillation Permanent (HCC) (+) Atrial Fibrillation Unspecified (HCC) (+) Atypical Atrial Flutter (HCC) (+) Chronic Diastolic (Congestive) Heart Failure (HCC) (+) Heart Failure NOS HEME (+) Anemia (+) Defect Coagulation (HCC) OBJECTIVE PHYSICAL EXAMINATION Airway (HEENT) Mallampati: I TM Distance: >3 FB Neck ROM: Full Mouth Opening: >3 cm Upper Lip Bite Test Class: I Facies (pediatrics): normal Cardiovascular Rhythm: Regular Rate: Abnormal Cardiovascular Assessment: cardiovascular normal Functional Capacity: >4 METS Pulmonary Pulmonary Assessment: Clear General / Constitutional Constitutional Assessment: Normal General State of Health:: calm Neurological Neurologic Assessment: alert and alert and oriented x 3 ASSESSMENT / PLAN ANESTHESIA PLAN ASA: 3 Anesthesia Plan: MAC Patient seen and allergies reviewed, anesthesia plan and risks discussed directly with patient /legal guardian or through an agricultural engineering technologist. Risks/Benefits/Alternatives of Blood transfusion discussed with patient / legal guardian, includingan opportunity to ask questions and/or decline some or all transfusion therapies. The patient / legal guardian consented to the use of all blood products, as deemed medically necessary Approval to Proceed: approved for anesthesia documented in this encounter Plan of Treatment Upcoming Encounters Date Type Department Care Team (Late st Contact Info) Description 09/06/2025 10:20 AM CDT Office Visit Department of Family Medicine, [facility], in [place], [place] [address] [place] [address] Jay Guzman M.B.BJuan AlbertoSJuan Alberto, MPaulie [address] [place] [address] 10/24/2025 1:00 PM DIGITAL ACCOUNT EXECUTIVE Appointment Department of Cardiovascular Diseases in [place], [place] [address] [place] [address] Jorge Ordaz M.D. [address] [place] [address] documented as of this encounter Visit Diagnoses Not on filedocumented in this encounter Administered Medications Inactive Administered Medications - up to 3 most recent administrations Medication Order MAR Action Action Date Dose Rate Site acetaminophen injection intravenous, Administer over 15 Minutes, As needed, Starting on Thu08/30/25 at 1430, Anesthesia Intra-op Given 08/30/2025 2:30 PM CDT 1,000 mg ceFAZolin injection (Ancef) intravenous, As needed, Starting on Thu08/30/25 at 1341, Anesthesia Intra-op Given 08/30/2025 1:41 PM CDT 2 g heparin (porcine) 1,000 unit/mL injection intravenous, As needed, Starting on Thu08/30/25 at 1417, Anesthesia Intra-op Given 08/30/2025 2:17 PM CDT 5,000 Units Lactated Ringer's intravenous, Continuous Infusion: Per Instructions PRN, Starting on Thu08/30/25 at 1330, Anesthesia Intra-op New Bag 08/30/2025 1:30 PM CDT ondansetron (PF) injection (Zofran) intravenous, As needed, Starting on Thu08/30/25 at 1522, Anesthesia Intra-op Given 08/30/2025 3:22 PM CDT 4 mg phenylephrine 80 mcg/mL in NaCl 0.9% 250 mL infusion intravenous, Continuous Infusion: Per Instructions PRN, Starting on Thu08/30/25 at 1354, Anesthesia Intra-op New Bag 08/30/2025 1:54 PM CDT 0.3 mcg/kg/min 15.84 mL/hr propofol 10 mg/mL infusion (Diprivan) intravenous, Continuous Infusion: Per Instructions PRN, Starting on Thu08/30/25 at 1332, Anesthesia Intra-op Rate/Dose Change 08/30/2025 3:20 PM CDT 50 mcg/kg/min 21.12 mL/hr Rate/Dose Change 08/30/2025 2:40 PM CDT 65 mcg/kg/min 27.4 56 mL/hr Rate/Dose Change 08/30/2025 2:08 PM CDT 75 mcg/kg/min 31.6 8 mL/hr remimazolam injection (Byfavo) intravenous, As needed, Starting on Thu08/30/25 at 1335, Anesthesia Intra-op Given 08/30/2025 1:45 PM CDT 2 mg Given 08/30/2025 1:35 PM CDT 4 mg documented in this encounter Additional Health Concerns Assessment Noted Time PHQ-9 Depression Total Score: 0 12/02/19 3:00 PM DIGITAL ACCOUNT EXECUTIVE A fall risk assessment has been complete d for the patient 09/12/2022 10:09 AM CDT documented as of this encounter Care Teams Wood Club Neck Whipper Relationship Specialty Start Date End Date Jay Guzman M.B.B.S., M.D. [address] [place] [phone] PCP - General Family Medicine 09/20/20 documented as of this encounter
--- OUTSIDE RECORDS SUMMARY | 2025-09-01 09:00 | XMS_ITS | Encounter Summary ---
Author Organization [facility] Address [address] [place] [address] Care Team Providers Care District Engineer Name Role Phone Jay Guzman M.D. Primary Care john Reason for Visit * Reason Onset Date Comments Post Hospital Follow-up 09/01/2025 * Outpatient (Routine) - Closed Specialty Diagnoses / Procedures Referred By Osvaldo keith [facility] Referral ID Status Reason Start Date Expiration Date Visits Re quested Visits Authorized [id number] Closed 08/31/2025 03/02/2027 1 1 Encounter Details Date Type Department Care Team (Latest Contact Info) Description 09/01/2025 9:00 AM CDT Clinical Communication Department of Family Medicine in [place], [place] [address] [place] [phone] Post Hospital Follow-up Social History Tobacco Use Types Packs/Day Years Used Date Smoking Tobacco: Never Passive Smoke Exposure: Past Smokeless Tobacco: Never Comments:Father smoked until 1956 Alcohol Use Standard Drinks/Week Comments Not Currently 0 (1 standard drink = 0.6 oz pure alcohol) Not used since 1976 - alevism reasons Humiliation, Afraid, Rape, and Kick questionnair [...] things needed for daily living? No 08/31/2025 [facility] Utilities Answer Date Recorded In the past 12 months has [employer] electric, gas, oil, or water [employer] threatened to shut off services in your home? No 08/31/2025 Depression Answer Date Recor ded PHQ-9 Total Score (max 27) 0 12/02 Housing Stability Answer Date Recorded What is your living situation today? I have a [facility] place to live 08/31/2025 Education Answer Date Recorded What is the highest level of school you have completed or the highest degree you have received? 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 AM CELLOPHANER Gender Identity Female 08/18/2021 8:27 PM CDT Sexual Orientation Not on file Occupation Industry Job Start Date Job End Date [employer] Not on file Not on file Not on file Not on file Not on file Not on file Not on file documented as of this encounter Miscellaneous Notes * Telephone Encounter - Lexie Schwarz R.NJuan Alberto - 09/01/2025 8:50 AM CDT SUBJECTIVE REASON FOR CALL Post-Hospital follow-up phone call with patient. Admission Date: 08/30/25 Discharge Date: 08/31/25 Discharge Diagnosis: Poorly Controlled Atrial Fibrillation Procedure: Leadless pacemaker implantation (RV AVIER) AV nicholas ablation [facility] Notes today that she is feeling better since discharged from the hospital. Concerns/questions: Patient is doing okay, but has a few questions/concerns. Medications. Symptom Review Feels her body is calmer with the heart rate at 90 than it has been. She is very in tune with her breathing and how she is feeling. Activities of Daily Living Patient is independent with activities of daily living. Has the patient had a fall since discharge: no. Has ambulation changed since hospitalization: no. Difficulty ambulating: no. The patient lives with spouse. Patient identified if needing assistance, she could depend on . And her pottery welder apprentice combination and others are attending her as needed. Wounds/Incisions/Lines, Drains and Airways Incision: chest. Signs or symptoms of infection: no. Incision care instructions reviewed: yes. Medication Status Current medication list was reviewed and she will take all her supplement bottles to the clinic forPCP appointment and update as needed. She would like to get an accurate list. Reports medication is self managed. Medications concerns: yes, she's wondering about if she should be on an anticoagulant and will be sending message via portal to her cardiology team to continue that conversation. Medication compliance for current medications: yes. High Risk Medications None Home Services Utilized The patient is not currently receiving home health services. Equipment/Supplies for Home Use None ordered Assessment/Plan Follow-up Appointment PCP Follow-up appointment scheduled: yes; scheduled on 09/06/25. The patient plans to go to the appointment and has no concerns about getting there. Specialty Follow-up scheduled with [facility] in October. She looks forward to hearing from the device clinic about those follow ups and there are notes from that department though no order in the system yet. Christie was given the phone number to the device clinic. Her connection was checked before she left the hospital so she will await their direction now. Recommendations Referral actions: none needed at this time. Additional recommendations: home care instructions reinforced or provided. Disposition/Recommendation: self-care is appropriate at this time, patient encouraged to call back with questions. Education: patient/caller able to teach back. Caller agreeable to plan of care: yes. documented in this encounter Plan of Treatment Upcoming Encounters Date Type Department Care Team (Late st Contact Info) Description 09/06/2025 10:20 AM CDT Office Visit Department of Family Medicine, [facility], in [place], [place] [address] [place] [address] Jay Guzman M.B.B.S., MPaulie [address] [place] [address] 10/24/2025 1:00 PM CELLOPHANER Appointment Department of Cardiovascular Diseases in [place], [place] [address] [place] [address] Jorge Ordaz M.D. [address] [place] [address] documented as of this encounter Visit Diagnoses Not on filedocumented in this encounter Additional Health Concerns Assessment Noted Time PHQ-9 Depression Total Score: 0 12/02/19 25 3:00 PM CELLOPHANER A fall risk assessment has been complete d for the patient 09/12/2022 10:09 AM CDT documented as of this encounter Care Teams District Engineer Relationship Specialty Start Date End Date Jay Guzman M.B.B.SJuan Alberto, MPaulie [address] [place] [address] PCP - General Family Medicine 09/20/20 documented as of this encounter
[2025-09-02] VITALS (11 sets, daily range): BP systolic 146–175; BP diastolic 83–97; PULSE 90–107; RESP 12–28; TEMP 36.8; O2SAT 96–98; BMI 21.1
--- OUTSIDE RECORDS SUMMARY | 2025-09-02 16:23 | XMS_ITS | Encounter Summary ---
Author Organization [facility] Address [address] [place] [address] Care Team Providers Care Culinary Art Teacher Name Role Phone Jay Guzman M.D. [facility] Reason for Visit * Reason Onset Date Comments DEVICE REGISTRATION 08/31/2025 PPM IMPLANT Encounter Details Date Type Department Care Team (Latest Contact Info) Description 08/31/2025 Clinical Communication Department of Cardiovascular Medicine in [place], [place] [address] [place] [phone] Perry Lozano M.D., M.P.H. [address] [place] [phone] DEVICE REGISTRATION (PPM IMPLANT) Social History Tobacco Use Types Packs/Day Years [...] things needed for daily living? No 08/31/2025 [facility] Utilities Answer Date Recorded In the past 12 months has e electric, gas, oil, or water [employer] threatened to shut off services in your home? No 08/31/2025 Depression Answer Date Recor ded PHQ-9 Total Score (max 27) 0 12/02 Housing Stability Answer Date Recorded What is your living situation today? I have a [facility] place to live 08/31/2025 Education Answer Date Recorded What is the highest level of school you have completed or the highest degree you have received? 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 AM MIXER OPERATOR HOT METAL Gender Identity Female 08/18/2021 8:27 PM CDT Sexual Orientation Not on file Occupation Industry Job Start Date Job End Date [employer] Not on file Not on file Not on file Not on file Not on file Not on file Not on file documented as of this encounter Miscellaneous Notes * Telephone Encounter - Lizzie Ahn - 08/31/2025 11:12 AM CDT Images from the original note were not included. _X_Register PPM & Leads __Extra copy for N/A _X_Create Vince Case _X_Scan Registered by Manolo Ahn * Telephone Encounter - Vashti Connelly - 08/31/2025 8:07 AM CDT PPM IMPLANT documented in this encounter Plan of Treatment Upcoming Encounters Date Type Department Care Team (Late st Contact Info) Description 09/06/2025 10:20 AM CDT Office Visit Department of Family Medicine, [facility], in [place], [place] [address] [place] [address] Jay Guzman M.B.B.S., M.D. [address] [place] [address] 10/24/2025 1:00 PM MIXER OPERATOR HOT METAL Appointment Department of Cardiovascular Diseases in [place], [place] [address] [place] [phone] Jorge Ordaz M.D. [address] [place] [address] documented as of this encounter Visit Diagnoses Not on filedocumented in this encounter Additional Health Concerns Assessment Noted Time PHQ-9 Depression Total Score: 0 12/02/19 25 3:00 PM MIXER OPERATOR HOT METAL A fall risk assessment has been complete d for the patient 09/12/2022 10:09 AM CDT documented as of this encounter Care Teams Culinary Art Teacher Relationship Specialty Start Date End Date Jay Guzman M.B.B.S., M.D. [address] [place] [phone] PCP - General Family Medicine 09/20/20 documented as of this encounter
--- OUTSIDE RECORDS SUMMARY | 2025-09-02 16:23 | XMS_ITS | Encounter Summary ---
Author Organization [facility] Address [address] [place] [address] Care Team Providers Care Typo Machine Operator Name Role Phone Jay Guzman M.D. Primary Care Shital lopez Reason for Visit * Reason Onset Date Comments Dizziness 09/02/2025 Chest Pain 09/02/2025 Pacemaker Problem 09/02/2025 Encounter Details Date Type Department Care Team (Late st Contact Info) Description 09/02/2025 Nurse Triage Department of Family Medicine, [facility], in [address] [phone] Renetta Figueredo, RJuan AlbertoNJuan Alberto [address] [place] [phone] Dizziness; Chest Pain; Pacemaker Problem Social History Tobacco Use Types Packs/Day Years Used Date Smoking Tobacco: Never Passive Smoke Exposure: Past Smokeless Tobacco: Never Comments:Father smoked until 1956 Alcohol Use Standard Drinks/Week Comments Not Currently 0 (1 standard drink = 0.6 oz pure alcohol) Not used since 1976 - protestant reasons Humiliation, Afraid, Rape, and Kick questionnair [...] things needed for daily living? No 08/31/2025 [facility] Utilities Answer Date Recorded In the past 12 months has e electric, gas, oil, or water [employer] threatened to shut off services in your home? No 08/31/2025 Depression Answer Date Recor ded PHQ-9 Total Score (max 27) 0 12/02 Housing Stability Answer Date Recorded What is your living situation today? I have a [facility] place to live 08/31/2025 Education Answer Date Recorded What is the highest level of school you have completed or the highest degree you have received? 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 AM BLACK TOPPER Gender Identity Female 08/18/2021 8:27 PM CDT Sexual Orientation Not on file Occupation Industry Job Start Date Job End Date [employer] Not on file Not on file Not on file Not on file Not on file Not on file Not on file documented as of this encounter Miscellaneous Notes * Telephone Encounter - Renetta Figueredo RJuan AlbertoN. - 09/02/2025 3:52 PM CDT Chief Complaint / Reason for Call Patient is a 80 y.o. female calling regarding Dizziness, Chest Pain, and Pacemaker Problem. Assessment Concern: dizzy My cardio mobile shows a change in the ECG. Chest pain - I have a slight feeling in the center in my chest. Not constant. Sensation in her chest lasts for minutes. Symptoms started 1.5-2 hours ago Pacemaker was placed on Thursday - leadless. The recommended disposition is Call EMS 911 Now. Reason for Disposition Sounds like a life-threatening emergency to the triager Protocols used: Chest Loas-Lnjtr-EK Care Advice Patient/Caregiver understands and will follow care advice?: Yes, able to teach back Chest Usxn-Syvvo-MV Nurse Renetta Vizcaino Sep 02, 2025 03:56 PM Care Advice CALL EMS 911 NOW: documented in this encounter Plan of Treatment Upcoming Encounters Date Type Department Care Team (Late st Contact Info) Description 09/06/2025 10:20 AM CDT Office Visit Department of Family Medicine, [facility], in [place], [place] [address] [place] [phone] Jay Guzman M.B.B.SJuan Alberto, MPaulie [address] [place] [phone] 10/24/2025 1:00 PM BLACK TOPPER Appointment Department of Cardiovascular Diseases in [place], [place] [address] [phone] Jorge Ordaz M.D. [address] [place] [address] documented as of this encounter Visit Diagnoses Not on filedocumented in this encounter Additional Health Concerns Assessment Noted Time PHQ-9 Depression Total Score: 0 12/02/19 25 3:00 PM BLACK TOPPER A fall risk assessment has been complete d for the patient 09/12/2022 10:09 AM CDT documented as of this encounter Care Teams Typo Machine Operator Relationship Specialty Start Date End Date Jay Guzman M.B.B.SJuan Alberto, Leonarda [address] [place] [address] [place] [address] PCP - General Family Medicine 09/20/20 documented as of this encounter
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
--- OUTSIDE RECORDS SUMMARY | 2025-09-02 16:25 | XMS_ITS | Continuity of Care Document ---
Author Organization [facility] Address [address] [place] [address] Care Team Providers Care Filer Repairer Name Role Phone Jay Guzman M.D. Primary Care john Source Comments Patient records contain information from all sites at [facility]. For routine questions regarding patient records, call [phone] during business hours, M-F 8:00 AM - 5:00 PM Central Time. Record requests for emergency care only can be directed to [phone] at any time.[facility] Encounters Date Type Department Care Team Description 5 Nurse Triage Department of Family Medicine, [facility], in [place], [place] [address] [place] [phone] Renetta Figueredo, RJuan AlbertoNJuan Alberto Dizziness; Chest Pain; Pacemaker Problem 5 Results Follow-Up Department of Family Medicine, [facility], in [place], [place] [address] [place] [phone] Keyana Lara M.D. BMD Bone Density Spine Hips 5 9:00 AM CDT Clinical Communication Department of Family Medicine in [place], [place] [address] [place] [phone] Post Hospital Follow-up 5 Clinical Communication Department of Cardiovascular Diseases in [place], [place] [address] [place] [address] Ankit Rodriguez R.N. Pacemaker follow-up 5 Clinical Communication Department of Cardiovascular Medicine in [address] [address] Perry Lozano M.D., M.P.H. DEVICE REGISTRATION (PPM IMPLANT) 5 10:24 AM CDT - 5 1:14 PM CDT Hospital Encounter [facility], [facility], Fourth Floor [address] [place] [phone] Perry Lozano M.D., M.P.H. Atrial Fibrillation Permanent (HCC); Atrial Fibrillation Longstanding Persistent (HCC) Discharge Disposition: Home or Self Care 5 1:26 PM CDT Anesthesia Event Division of Cardiovascular Diseases in [place], [place] [address] [place] [phone] Katerine Hayward, SENIOR EDUCATION SPECIALIST, [facility] [employer], DNAP Bitew, Robert Pan SENIOR EDUCATION SPECIALIST, [employer], DNAP 5 11:46 AM CDT - 5 2:26 PM CDT Surgery Division of Cardiovascular Diseases in [place], [place] [address] [place] [phone] Perry Lozano M.D., M.P.H. PPM IMPLANT 5 2:39 PM CDT - 5 11:59 PM CDT Hospital Encounter Department of Radiology in [place], [place] [address] [place] [address] Jay Guzman M.B.BJuan AlbertoSJuan Alberto, M.Tyra. Osteoporosis Discharge Disposition: Home or Self Care 5 6:12 AM CDT - 5 8:19 AM CDT Hospital Encounter Department of Cardiovascular Diseases in [place], [place] [address] [place] [address] Perry Lozano M.D., M.P.H. Atrial Fibrillation Longstanding Persistent (HCC) Discharge Disposition: Home or Self Care 5 8:41 AM CDT - 5 11:59 PM CDT Hospital Encounter Department of Radiology, [facility] in [place], [place] [address] [place] [phone] Perry Lozano M.D., M.P.H. Atrial Fibrillation Longstanding Persistent (HCC) Discharge Disposition: Home or Self Care 5 8:20 AM CDT - 5 8:40 AM CDT Hospital Encounter Department of Laboratory Medicine and Pathology, [facility] in [place], [place] [address] [place] [phone] Perry Lozano M.D., M.P.H. Atrial Fibrillation Longstanding Persistent (HCC) Discharge Disposition: Home or Self Care 5 10:00 AM CDT Office Visit Department of Cardiovascular Medicine in [place], [place] [address] [place] [phone] Jamar Gan M.D. Atrial Fibrillation Longstanding Persistent (HCC) (Primary Dx) 5 Clinical Communication Department of Cardiovascular Medicine in [place], [place] [address] [place] [phone] Motion Picture Camera OperatorCarl M.D. Echo Move Up Request (Surgical ) 5 3:00 PM CDT Office Visit Department of Family Medicine, [facility], in [address] [address] Jay Guzman M.B.BJuan AlbertoSJuan Alberto, MPaulie Atrial Fibrillation Longstanding Persistent (HCC) (Primary Dx) 5 Orders Only Department of Cardiovascular Medicine in [place], [place] [address] [place] [phone] Perry Lozano M.D., M.P.H. Atrial Fibrillation Permanent (HCC) (Primary Dx) 5 11:00 AM CDT Comprehensive Visit Department of Family Medicine, [facility], in [place], [place] [address] [place] [address] Sujatha Staples APRN, C.N.P. Nevi Multiple (Primary Dx); Screening Examination Skin Cancer; Keratosis Seborrheic; Angioma Castro; Dermatoheliosis 5 9:30 AM CDT Office Visit Department of Cardiovascular Diseases in [place], [place] [address] [place] [address] Jorge Ordaz M.D. Atrial Fibrillation Longstanding Persistent (HCC) (Primary Dx); Regurgitation Mitral 5 8:46 AM CDT - 5 11:59 PM CDT Hospital Encounter Department of Laboratory Medicine in [place], [place] [address] [place] [address] Jorge Ordaz M.D. Atrial Fibrillation Other Persistent (HCC) Discharge Disposition: Home or Self Care 5 Orders Only Department of Family Medicine, [facility], in [place], [place] [address] [place] [address] Keyana Lara M.D. 5 9:20 AM CDT Office Visit Department of Family Medicine, [facility], in [place], [place] [address] [place] [address] Keyana Lara M.D. Onychogryphosis (Primary Dx); Onychomycosis; Bite Thigh Insect Subsequent Left; History Of Falling; Atrial Fibrillation Unspecified (HCC); Hypertensive Heart Disease Without Heart Failure 5 Ancillary Procedure Department of Ophthalmology 5 10:15 AM CDT Office Visit Department of Ophthalmology in [place], [place] [address] [place] [address] Sam Manning M.D. 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 Atrial Fibrillation Longstanding Persistent (HCC); Atrial Fibrillation Unspecified (HCC) Discharge Disposition: Home or Self Care 5 3:00 PM CDT Office Visit Department of Cardiovascular Medicine in [place], [place] [address] [place] [phone] Perry Lozano M.D., M.P.H. Atrial Fibrillation Longstanding Persistent (HCC); Atrial Fibrillation Unspecified (HCC) 5 8:45 AM PROJECTS MANAGER Clinical Communication Virtual Review in [place], [place] [address] [place] [address] Pre-visit Intake 5 Orders Only Department of Dermatology in [place], [place] [address] [place] [phone] Pita Nelson M.D. Abnormal Uterine And Vaginal Bleeding Unspecified (Primary Dx) 5 Orders Only Department of Dermatology in [place], [place] [address] [place] [phone] Pita Nelson M.D. 5 Clinical Communication Department of Cardiovascular Medicine in [place], [place] [address] [place] [phone] Félix Burrell R.N. 5 12:05 AM PROJECTS MANAGER Ancillary Procedure Department of Dermatology 5 Ancillary Procedure Department of Ophthalmology 5 4:00 PM PROJECTS MANAGER Comprehensive Visit Department of Dermatology in [place], [place] [address] [place] [phone] Pita Nelson M.D. Dermatitis Hand (Primary Dx); Lichen Sclerosus; Purpura Simplex (HCC) 5 10:30 AM PROJECTS MANAGER Office Visit Department of Ophthalmology in [place], [place] [address] [place] [phone] Sam Manning M.D. 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 Echo Move Up Request 5 Ancillary Procedure Department of Ophthalmology 5 9:20 AM PROJECTS MANAGER Ancillary Procedure Department of Ophthalmology 5 10:15 AM PROJECTS MANAGER Procedure visit Department of Ophthalmology in [place], [place] [address] [place] [phone] Sam Manning M.D. Xu, Timothy T, M.D. 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 Atrial Fibrillation Other Persistent (HCC) (Primary Dx) 5 Clinical Communication Division of Colon and Rectal Surgery in [place], [place] [address] [place] [phone] Carlos Ross P.A.-C., M.S. 5 11:15 AM PROJECTS MANAGER Ancillary Procedure Department of Colon and Rectal 5 Orders Only Division of Colon and Rectal Surgery in [place], [place] [address] [place] [phone] Carlos Ross P.A.-C., M.S. Lichen Sclerosus (Primary Dx) 5 11:30 AM PROJECTS MANAGER Office Visit Department of Orthopedic Surgery in [place], [place] [address] [place] [phone] Maggy Palomino APRN, C.N.P., Tyra.N.P. Cellulitis Hand Right (Primary Dx) 5 10:30 AM PROJECTS MANAGER Comprehensive Visit Division of Colon and Rectal Surgery in [place], [place] [address] [place] [phone] Carlos Ross P.A.-C., M.S. Lichen Sclerosus (Primary Dx); Fissure Anal 5 8:00 AM PROJECTS MANAGER Clinical Communication Virtual Review in [place], [place] [address] [place] [phone] Pre-visit Intake 5 Clinical Communication Department of Orthopedic Surgery in [place], [place] [address] [place] [phone] Alo Ragsdale D.O., M.S. Appointment 5 11:06 AM PROJECTS MANAGER - 5 11:59 PM PROJECTS MANAGER Hospital Encounter Department of Laboratory Medicine in [address] [address] Mike Wilson P.A.-C. Atrial Fibrillation Longstanding Persistent (HCC); Atrial Fibrillation Unspecified (HCC) Discharge Disposition: Home or Self Care 5 11:30 AM PROJECTS MANAGER Office Visit Department of Family Medicine, [facility], in [place], [place] [address] [place] [address] Sadaf Pierre P.A.-C. Atrial Fibrillation Longstanding Persistent (HCC) (Primary Dx); Cellulitis Hand Right 5 Orders Only Department of Ophthalmology in [place], [place] [address] [place] [phone] Sam Manning M.D. 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 Post Hospital Follow-up (TCM call completed) 5 Orders Only Department of Orthopedic Surgery in [place], [place] [address] [place] [address] Maggy Palomino APRN, C.N.P., D.N.P. 5 9:15 AM PROJECTS MANAGER Ancillary Procedure Department of Physical Medicine and Rehab 5 6:36 AM PROJECTS MANAGER - 5 3:13 PM PROJECTS MANAGER Hospital Encounter [facility], [facility], Fourth Floor [address] [place] [address] Perry Lozano M.D., M.P.H. Cesar Thurman M.D. Chris Silva M.D., Ph.D. Mike Wilson, P.A.-C. Atypical Atrial Flutter (HCC) (Primary Dx); Atrial Fibrillation Longstanding Persistent (HCC); Atrial Fibrillation Unspecified (HCC); Occlusion Retinal Artery Branch Right; Pain Hand Right; Debility [R53.81]; Decline Functional Status [R53.81]; Palpitations; Cellulitis Hand Right Discharge Disposition: Home or Self Care 5 9:30 AM PROJECTS MANAGER Ancillary Procedure Department of Physical Medicine and Rehab 5 9:40 AM PROJECTS MANAGER Ancillary Procedure Department of Physical Medicine and Rehab 5 9:55 AM PROJECTS MANAGER Ancillary Procedure Department of Cardiology 5 8:00 AM PROJECTS MANAGER Ancillary Procedure Department of Internal Medicine 5 1:05 PM PROJECTS MANAGER Ancillary Procedure Department of Internal Medicine 5 Clinical Communication Department of Cardiovascular Medicine in [place], [place] [address] [place] [address] Mike Wilson P.A.-Ronaldo 5 Clinical Communication Department of Cardiovascular Medicine in [place], [place] [address] [place] [address] Motion Picture Camera OperatorCarl M.D. Appointment 5 6:25 PM PROJECTS MANAGER Ancillary Procedure Department of Cardiology 5 Ophth Exam Department of Ophthalmology in [place], [place] [address] [place] [address] Sam Mnaning M.D. 5 Orders Only Department of Cardiovascular Medicine in [place], [place] [address] [place] [address] Perry Lozano M.D., M.P.H. 5 Clinical Communication Department of Cardiovascular Medicine in [place], [place] [address] [place] [address] Mike Wilson P.AJuan Alberto-Jailyn. 5 7:45 AM PROJECTS MANAGER - 5 11:40 AM PROJECTS MANAGER Surgery Division of Cardiovascular Diseases in [place], [place] [address] [place] [phone] Perry Lozano M.D., M.P.H. ABLATION - PVI 5 8:25 AM PROJECTS MANAGER Anesthesia Event Division of Cardiovascular Diseases in [place], [place] [address] [place] [address] Robbie Miramontes APRN, BURNER HAND, DNAP 5 9:05 AM PROJECTS MANAGER - 5 1:10 PM PROJECTS MANAGER Hospital Encounter Department of Radiology, [facility] in [place], [place] [address] [place] [address] Perry Lozano M.D., M.P.H. Atrial Fibrillation Longstanding Persistent (HCC) Discharge Disposition: Home or Self Care 5 1:11 PM PROJECTS MANAGER - 5 11:59 PM PROJECTS MANAGER Hospital Encounter Department of Laboratory Medicine and Pathology, [facility] in [place], [place] [address] [place] [phone] Perry Lozano M.D., M.P.H. Atrial Fibrillation Longstanding Persistent (HCC) Discharge Disposition: Home or Self Care 5 3:00 PM PROJECTS MANAGER Office Visit Department of Cardiovascular Medicine in [place], [place] [address] [place] [phone] Zenia Wright APRN, C.NJamilah., M.S.N. Atrial Fibrillation Other Persistent (HCC) (Primary Dx); Hyperlipidemia; Elevated Blood Pressure; Cardiomyopathy (HCC); Finding Cardiac Echocardiogram Enlarged Atrium Left; Repair Tricuspid Valve Status Post; Repair Mitral Valve Status Post; Anticoagulant Therapy 5 8:30 AM PROJECTS MANAGER Clinical Communication Virtual Review in [place], [place] [address] [place] [address] Pre-visit Intake 5 Orders Only [facility] Jay Guzman M.B.B.S., MPaulie 4 Community Orders [facility] [address] [place] [phone] Luke Galvan M.D. Fissure Anal (Primary Dx) 4 Clinical Communication Department of Cardiovascular Medicine in [place], [place] [address] [place] [phone] Daija Goldman, REsme 4 Orders Only Department of Cardiovascular Medicine in [place], [place] [address] [place] [phone] Perry Lozano M.D., M.P.H. 4 8:15 AM CDT Office Visit Department of Cardiovascular Diseases in [address] [phone] Jorge Ordaz M.D. Palpitations (Primary Dx) 4 1:10 PM CDT - 4 11:59 PM CDT Hospital Encounter Department of Laboratory Medicine in [place], [place] [address] [place] [address] Perry Lozano M.D., M.P.H. Palpitations; Atrial Fibrillation Longstanding Persistent (HCC) Discharge Disposition: Home or Self Care 4 12:40 PM CDT Virtual Visit Division of Gastroenterology in [place], [place] [address] [place] [address] Saad Doe M.B.B.SJuan Alberto Diarrhea Functional (Primary Dx) 4 9:46 AM CDT - 4 11:59 PM CDT Hospital Encounter Department of Cardiovascular Diseases in [place], [place] [address] [place] [address] Jorge Ordaz M.D. Abnormal Echocardiogram Discharge Disposition: Home or Self Care 4 2:11 PM CDT - 4 11:59 PM CDT Hospital Encounter Department of Laboratory Medicine and Pathology, [facility] in [place], [place] [address] [place] [address] Saad Doe M.B.BJuan AlbertoSJuan Alberto Diarrhea Discharge Disposition: Home or Self Care 4 1:10 PM CDT Comprehensive Visit Division of Gastroenterology in [place], [place] [address] [place] [address] Jay Guzman M.B.BCari, Saad Burrell M.B.B.SJuan Alberto Diarrhea (Primary Dx); Colitis Collagenous; Diarrhea Functional 4 8:30 AM CDT Clinical Communication Virtual Review in [place], [place] [address] [place] [address] 4 2:00 PM CDT Telemedicine Department of Sleep Medicine in [place], [place] [address] [place] [phone] Abhinav Todd M.D. Obstructive Sleep Apnea Adult (Primary Dx) Discharge Disposition: Home or Self Care 4 9:50 AM CDT - 4 11:59 PM CDT Hospital Encounter Department of Laboratory Medicine and Pathology, [facility], in [place], [place] [address] [place] [address] Jennifer Resendez P.A.-C., M.P.H. Atrial Fibrillation Longstanding Persistent (HCC) Discharge Disposition: Home or Self Care 4 11:30 AM CDT Office Visit Department of Cardiovascular Medicine in [place], [place] [address] [place] [address] Perry Lozano M.D., M.P.H. Atrial Fibrillation Longstanding Persistent (HCC) 4 3:00 PM CDT Office Visit Department of Family Medicine, [facility], in [address] [address] Jay Guzman M.B.B.S., M.D. Diarrhea Functional (Primary Dx); Atrial Fibrillation Longstanding Persistent (HCC) 4 9:45 AM CDT Clinical Communication Virtual Review in [place], [place] [address] [place] [address] Pre-visit Intake 4 6:00 AM CDT - 4 11:59 PM CDT Hospital Encounter Department of Pulmonary Medicine in [place], [place] [address] [place] [address] Abhinav Todd M.D. Sleep Apnea; Apnea Sleep Obstructive Discharge Disposition: Home or Self Care 4 8:25 AM CDT - 4 11:59 PM CDT Hospital Encounter Department of Laboratory Medicine in [address] [address] Jorge Ordaz M.D. Abnormal Echocardiogram; Atrial Fibrillation Longstanding Persistent (HCC); High Risk Medication Discharge Disposition: Home or Self Care 4 4:18 PM CDT - 4 11:59 PM CDT Hospital Encounter Department of Laboratory Medicine in [address] [place] [address] Jorge Ordaz M.D. High Risk Medication; Atrial Fibrillation Longstanding Persistent (HCC) Discharge Disposition: Home or Self Care 4 1:00 PM CDT Telemedicine Department of Sleep Medicine in [place], [place] [address] [place] [address] Abhinav Todd M.D. Apnea Sleep Obstructive (Primary Dx); Sleep Apnea Discharge Disposition: Home or Self Care 4 Clinical Communication Department of Cardiovascular Diseases in [place], [place] [address], [place] [address] Jorge Ordaz M.D. 4 8:03 AM CDT - 4 11:59 PM CDT Hospital Encounter Department of Laboratory Medicine in [address] [address] Jorge Ordaz M.D. Atrial Fibrillation Longstanding Persistent (HCC); Regurgitation Mitral; Dilated Aortic Root (HCC) Discharge Disposition: Home or Self Care 4 9:15 AM CDT Office Visit Department of Cardiovascular Diseases in [address] [address] Jorge Ordaz M.D. Abnormal Echocardiogram (Primary Dx); Atrial Fibrillation Longstanding Persistent (HCC); High Risk Medication 4 Clinical Communication Department of Sleep Medicine in [place], [place] [address] [place] [address] Abhinav Todd M.D. 4 8:40 AM CDT - 4 11:59 PM CDT Hospital Encounter Department of Laboratory Medicine in [place], [place] [address] [place] [address] Jennifer Resednez P.A.-C., M.P.H. Atrial Fibrillation Longstanding Persistent (HCC) Discharge Disposition: Home or Self Care 4 10:00 AM CDT Office Visit Department of Family [facility], [facility], [address] [address] Jay Guzman M.B.B.S., M.D. Atrial Fibrillation Longstanding Persistent (HCC) (Primary Dx); Chronic Diastolic (Congestive) Heart Failure (HCC) 4 Clinical Communication Department of Family [facility], [facility], [address] [address] Karla Walker R.N. Post Hospital Follow-up 4 Clinical Communication Department of [facility], [facility], [address] [address] Jay Guzman M.B.B.S., M.D. 4 6:14 AM CDT - 4 4:22 PM CDT Hospital Encounter [facility], [facility], Third Floor [address] [place] [phone] Perry Lozano M.D., M.P.H. Cesar Thurman M.D. Kowlgi, Narayan G, M.B.BJuan AlbertoSJuan Alberto, M.S. Atrial Fibrillation Longstanding Persistent (HCC) Discharge Disposition: Home or Self Care 4 2:57 PM CDT Anesthesia Event Department of Cardiovascular Disease [facility] [address] [place] [phone] Drew Blanton APRN, GEO, Maria Del Carmen Ho APRN, CRNA 4 Clinical Communication Department of Cardiovascular Medicine in [place], [place] [address] [place] [address] Jennifer Resendez P.A.-C., M.P.H. 4 Orders Only Department of Cardiovascular Medicine in [place], [place] [address] [place] [address] Perry Lozano M.D., M.P.H. 4 10:43 AM CDT - 4 11:59 PM CDT Hospital Encounter Department of Cardiovascular Diseases in [place], [place] [address] [place] [address] Jorge Ordaz M.D. Atrial Fibrillation Longstanding Persistent (HCC) Discharge Disposition: Home or Self Care 4 Orders Only Department of Sleep Medicine in [place], [place] [address] [place] [address] Janae Medina L.P.N. Snoring Primary (Primary Dx) 4 8:12 AM CDT - 4 11:59 PM CDT Hospital Encounter Department of Laboratory Medicine in [address] [address] Perry Lozano M.D., M.P.H. Palpitations Discharge Disposition: Home or Self Care 4 10:00 AM CDT Comprehensive Visit Department of Cardiovascular Medicine in [place], [place] [address] [place] [phone] Perry Lozano M.D., M.P.H. Palpitations (Primary Dx); Atrial Fibrillation Longstanding Persistent (HCC); Repair Tricuspid Valve Status Post; Repair Mitral Valve Status Post 4 8:15 AM CDT Clinical Communication Virtual Review in [place], [place] [address] [place] [address] Pre-visit Intake 4 8:51 AM CDT - 4 11:59 PM CDT Hospital Encounter Department of Laboratory Medicine in [address] [address] Jorge Ordaz M.D. Atrial Fibrillation Longstanding Persistent (HCC) Discharge Disposition: Home or Self Care 4 8:51 AM CDT Hospital Encounter Department of Laboratory Medicine in [address] [address] Jorge Ordaz M.D. Atrial Fibrillation Longstanding Persistent (HCC) Discharge Disposition: Home or Self Care 4 8:40 AM CDT - 4 8:50 AM CDT Hospital Encounter Department of Radiology in [address] [address] Jorge Ordaz M.D. Atrial Fibrillation Longstanding Persistent (HCC) Discharge Disposition: Home or Self Care 4 8:38 AM CDT - 4 11:59 PM CDT Hospital Encounter Department of Cardiovascular Diseases in [address] [address] Jorge Ordaz M.D. Atrial Fibrillation Longstanding Persistent (HCC) Discharge Disposition: Home or Self Care 4 10:15 AM CDT Ancillary Procedure Department of Dermatology 4 11:30 AM CDT Comprehensive Visit Department of Family Medicine, [facility], in [address] [address] Christina Pyle M.D. Screening Examination Skin Cancer (Primary Dx); Tumor Skin Uncertain Behavior; Keratosis Actinic 4 11:00 AM PROJECTS MANAGER Office Visit Department of Family Medicine, [facility], in [address] [address] Jay Guzman M.B.BJuan AlbertoSLeonarda Avendano Osteoporosis (Primary Dx) 4 1:48 PM PROJECTS MANAGER - 4 11:59 PM PROJECTS MANAGER Hospital Encounter Department of Radiology in [address] [address] [address] Jay Guzman M.B.BJuan AlbertoSLeonarda Avendano Osteoporosis Discharge Disposition: Home or Self Care 4 8:30 AM PROJECTS MANAGER Office Visit Department of Family [facility], [facility], in [address] [address] Amanda Higgins APRN, C.N.PJuan Alberto, Tyra.N.P. Lesion Skin Face (Primary Dx); Keratosis 4 Nurse Triage Department of [facility], [facility], in [address] [address] Sandra Strong R.N. Nurse Assessment 4 3:09 PM PROJECTS MANAGER - 4 11:59 PM PROJECTS MANAGER Hospital Encounter Department of Radiology in [address] [address] Jay Guzman M.B.B.SJuan Alberto, Leonarda Osteoporosis Discharge Disposition: Home or Self Care 4 2:59 PM PROJECTS MANAGER - 4 3:08 PM PROJECTS MANAGER Hospital Encounter Department of Laboratory Medicine in [address] [address] Jay Guzman M.B.B.SJuan Alberto, Leonarda Osteoporosis Discharge Disposition: Home or Self Care 4 2:00 PM PROJECTS MANAGER Comprehensive Visit Department of [facility], [facility], in [address] [address] Jay Guzman M.B.B.SLeonarda Avendano Osteoporosis (Primary Dx); Chronic Diastolic (Congestive) Heart Failure (HCC); Atrial Fibrillation Longstanding Persistent (HCC); History Of Falling 3 2:00 PM PROJECTS MANAGER - 3 11:59 PM PROJECTS MANAGER Hospital Encounter Department of Radiology in [address] [address] Jay Guzman M.B.B.SLeonarda Avendano Screening Mammogram Breast Cancer Discharge Disposition: Home or Self Care 3 8:40 AM PROJECTS MANAGER Immunization Department of [facility], [facility], in [address] [address] 3 Clinical Communication Department of [facility], [facility], in [address] [address] Jay Guzman M.B.B.S., M.D. Order Request 3 12:18 PM CDT - 3 11:59 PM CDT Hospital Encounter Department of Laboratory Medicine in [address] [address] Sadaf Pierre P.A.-CJuan Alberto Insect Bite (Includes Tick) Nonvenomous Right Lower Leg Subsequent Discharge Disposition: Home or Self Care 3 12:00 PM CDT Office Visit Department of [facility], [facility], in [address] [address] Sadaf Pierre P.A.-CJuan Alberto Insect Bite (Includes Tick) Nonvenomous Right Lower Leg Subsequent (Primary Dx) 3 9:45 AM CDT Office Visit Department of Cardiovascular Diseases in [place], [place] [address] [address] Jorge Ordaz M.D. Atrial Fibrillation Longstanding Persistent (HCC) (Primary Dx); Regurgitation Mitral; Dilated Aortic Root (HCC) 3 9:38 AM CDT - 3 11:59 PM CDT Hospital Encounter Department of Cardiovascular Diseases in [address] [address] Jorge Ordaz M.D. Atrial Fibrillation Longstanding Persistent (HCC); Regurgitation Mitral; Shortness Of Breath Discharge Disposition: Home or Self Care 3 Orders Only [facility] Jay Guzman M.B.B.S., M.D. 3 3:00 PM CDT Office Visit Department of Family Medicine, [facility], in [address] [address] Keyana Lara M.D. Bite Leg Insect Initial Left (Primary Dx); Insect Bite Back Initial Right; Insect Bite (Includes Tick) Nonvenomous Abdominal Wall Initial 3 10:38 AM CDT - 3 11:59 PM CDT Hospital Encounter Department of Cardiovascular Diseases in [address] [address] Jorge Ordaz M.D. Palpitations; Atrial Fibrillation Longstanding Persistent (HCC) Discharge Disposition: Home or Self Care 3 11:00 AM CDT Office Visit Department of Family Medicine, [facility], in [address] [address] Jay Guzman M.B.B.S., M.D. Chronic Diastolic (Congestive) Heart Failure (HCC); Atrial Fibrillation Longstanding Persistent (HCC); History Of Falling 3 4:12 PM CDT - 3 11:59 PM CDT Hospital Encounter Department of Laboratory Medicine in [address] [address] Jorge Ordaz M.D. Palpitations; Atrial Fibrillation Longstanding Persistent (HCC) Discharge Disposition: Home or Self Care 3 4:11 PM CDT Hospital Encounter Department of Laboratory Medicine in [address] [address] Jorge Ordaz M.D. Palpitations; Atrial Fibrillation Longstanding Persistent (HCC) Discharge Disposition: Home or Self Care 3 Clinical Communication Department of Cardiovascular Diseases in [address] [phone] Jorge Ordaz M.D. 3 3:10 PM PROJECTS MANAGER - 3 11:59 PM PROJECTS MANAGER Hospital Encounter Department of Laboratory Medicine in [address] [address] Jay Guzman M.B.B.S., M.D. Hyperlipidemia Discharge Disposition: Home or Self Care 3 Orders Only [facility] Jay Guzman M.B.B.S., M.D. Hyperlipidemia 2 10:27 AM CDT - 2 11:59 PM CDT Hospital Encounter Department of Radiology in [address] [address] Jay Guzman M.BJuan AlbertoB.SJuan Alberto, Leonarda Pain Hand Left Discharge Disposition: Home or Self Care 2 10:00 AM CDT Office Visit Department of Family Medicine, [facility], in [address] [address] Jay Guzman M.BJuan AlbertoB.SJuan Alberto, Leonarda Pain Hand Left (Primary Dx); History Of Falling 2 Nurse Triage Department of Family Medicine, [facility], in [address] [address] Yamini Armenta R.N. Hand Pain 2 9:34 AM CDT - 2 11:59 PM CDT Hospital Encounter Department of Laboratory Medicine in [address] [address] Jorge Ordaz M.D. Atrial Fibrillation Longstanding Persistent (HCC) Discharge Disposition: Home or Self Care 2 9:00 AM CDT Office Visit Department of Cardiovascular Diseases in [address] [address] Jorge Ordaz M.D. Atrial Fibrillation Longstanding Persistent (HCC) (Primary Dx) 2 Nurse Triage Department of [facility], in [address] [address] Zaida Muñoz R.N. COVID Nurse Line 2 Orders Only [facility] Jay Guzman M.B.BJuan AlbertoSLeonarda Avendano Screening Mammogram Breast Cancer 2 Clinical Communication Pharmacy Prior Auth RO [phone] Aixa Clark 2 Orders Only Pharmacy Prior Auth RO [phone] Manisha Fields 2 Documentation Division of Gastroenterology in [address] [address] Ryan Portillo M.D. 2 10:25 AM CDT Ancillary Procedure Department of Gastroenterology 2 9:32 AM CDT - 2 11:59 PM CDT Hospital Encounter Division of Gastroenterology in [address] [address] Ryan Portillo M.D. Diarrhea Discharge Disposition: Home or Self Care 2 Clinical Communication Department of [facility], [facility], in [address] [address] Jay Guzman M.B.BLeonarda Alcala 2 8:50 AM CDT Comprehensive Visit Division of Gastroenterology in [address] [address] Jay Guzman M.B.BJuan AlbertoSLeonarda Avendano Jad P, M.D. Diarrhea (Primary Dx) 2 9:45 AM CDT Clinical Communication Virtual Review in [address] [address] Pre-visit Intake 2 9:50 AM CDT - 2 11:59 PM CDT Hospital Encounter Department of Laboratory Medicine in [place], [place] [address] [place] [address] Keyana Lara M.D. Discharge Disposition: Home or Self Care 2 4:26 PM CDT - 2 11:59 PM CDT Hospital Encounter Department of Laboratory Medicine in [place], [place] [address] [place] [address] Keyana Lara M.D. Diarrhea Discharge Disposition: Home or Self Care 2 4:26 PM CDT - 2 11:59 PM CDT Hospital Encounter Department of Laboratory Medicine in [place], [place] [address] [place] [address] Keyana Lara M.D. Diarrhea Discharge Disposition: Home or Self Care 2 3:45 PM CDT Office Visit Department of [facility], [facility], in [place], [place] [address] [place] [address] Keyana Lara M.D. Diarrhea (Primary Dx); Hypertension Essential Primary 2 Nurse Triage Department of Family [facility], [facility], in [place], [place] [address] [place] [address] Aye White R.N., CLC Diarrhea 2 9:30 AM CDT Immunization Department of Family [facility], [facility], in [place], [place] [address] [place] [address] Jay Guzman M.B.BJuan AlbertoSJuan Alberto, M.Tye 2 8:00 AM CDT Office Visit Department of Family [facility], [facility], in [place], [place] [address] [place] [address] Kelly Capps M.H.SRaza., R.N. Lyme Disease Personal History (Primary Dx); Chronic Diastolic (Congestive) Heart Failure (HCC) 2 Nurse Triage Department of Family Medicine, [facility], in [place], [place] [address] [place] [address] Lexie Dorantes R.N. Tick Removal 2 Orders Only [facility] Jay Guzman M.B.BCari, MPaulie 2 Clinical Communication Department of [facility], [facility], in [address] [address] Jay Guzman M.B.BCari, MPaulie Results 2 12:05 PM CDT - 2 11:59 PM CDT Hospital Encounter Department of Laboratory Medicine in [address] [address] Jay Guzman M.B.B.SJuan Alberto, Leonarda Diarrhea Discharge Disposition: Home or Self Care 2 12:05 PM CDT - 2 11:59 PM CDT Hospital Encounter Department of Radiology in [address] [address] Jay Guzman M.BJuan AlbertoBJuan AlbertoSJuan Alberto, MPaulie Diarrhea Discharge Disposition: Home or Self Care 2 11:30 AM CDT Office Visit Department of [facility], in [address] [address] Jay Guzman M.B.BJuan AlbertoSJuan Alberto, Leonarda Diarrhea (Primary Dx) 2 Nurse Triage Department of [facility], [facility], in [address] [address] Jenni Schofield R.N. Diarrhea 2 Orders Only Pharmacy Prior Auth RO [phone] Aixa Clark 2 Orders Only Pharmacy Prior Auth RO [phone] Eulalia Schrader 2 Orders Only Pharmacy Prior Auth RO [phone] Janae Ashley 2 Clinical Communication Department of Cardiovascular Diseases in [address] [place] [address] Jorge Ordaz M.D. 2 Clinical Communication Department of [facility], [facility], in [address] [address] Jay Guzman M.B.B.S., M.D. Med Management (Communication) 2 Refill Department of Cardiovascular Diseases in [address] [place] [address] Jay Guzman M.B.BLeonarda Alcala Med Refill 2 8:20 AM PROJECTS MANAGER - 2 11:59 PM PROJECTS MANAGER Hospital Encounter Department of Laboratory Medicine in [address] [address] Jay Guzman M.B.BLeonarda Alcala Hematuria Discharge Disposition: Home or Self Care 2 Clinical Communication Department of [facility], in [address] [address] Jay Guzman M.B.BLeonarda Alcala Results 2 3:15 PM PROJECTS MANAGER - 2 11:59 PM PROJECTS MANAGER Hospital Encounter Department of Laboratory Medicine in [address] [address] Jay Guzman M.B.B.S., M.D. Elevated Glucose; Hyperlipidemia Discharge Disposition: Home or Self Care 2 2:30 PM PROJECTS MANAGER Office Visit Department of Family Medicine, [facility], in [place], [place] [address] [place] [address] Jay Guzman M.B.B.S., M.D. Atrial Fibrillation Longstanding Persistent (HCC) (Primary Dx); Osteoporosis; Hyperlipidemia; Elevated Glucose; Hematuria 2 8:35 AM PROJECTS MANAGER - 2 11:59 PM PROJECTS MANAGER Hospital Encounter Department of Laboratory Medicine in [place], [place] [address] [place] [address] Teodoro Pyle M.D., M.P.H. Concern Patient Cognition Function Discharge Disposition: Home or Self Care 2 8:00 AM PROJECTS MANAGER Comprehensive Visit Department of Neurology in [place], [place] [address] [place] [address] Teodoro Pyle M.D., M.P.H. Concern Patient Cognition Function 2 10:46 AM PROJECTS MANAGER - 2 11:59 PM PROJECTS MANAGER Hospital Encounter Department of Laboratory Medicine, [facility], in [place] [address] [place] [address] Moy Mena D.O. Discharge Disposition: Home or Self Care 2 1:00 PM PROJECTS MANAGER Admin Visit Department of Family Medicine, [facility], [address] [phone] 2 External Outreach Department of Family Medicine, [address] [address] Moy Mena D.O. Contact With And (Suspected) Exposure To COVID-19; Infection Upper Respiratory 2 Clinical Communication Division of [facility] Internal Medicine, [facility] in [place], [place] [address] [place] [address] Sandra Shahid REsme COVID Nurse Line 2 Clinical Communication Department of Family [facility], [facility], in [place], [place] [address] [place] [address] Jay Guzman M.B.B.S., M.D. COVID Inquiry 1 Nurse Triage Department of [facility], [facility], in [place], [place] [address] [place] [address] Ashley Schwarz R.N. Abdominal Pain 1 Clinical Communication Division of [facility] Internal [facility], [facility] in [place], [place] [address] [place] [address] Evonne Dexter R.N. 1 2:00 PM PROJECTS MANAGER Office Visit Department of Family [facility], [facility], in [address] [address] Jay Guzman M.B.BJuan AlbertoSJuan Alberto, Leonarda Lichen Sclerosus (Primary Dx); Chronic Diastolic (Congestive) Heart Failure (HCC); Atrial Fibrillation Longstanding Persistent (HCC); Concern Patient Cognition Function 1 12:40 PM PROJECTS MANAGER Immunization Department of [facility], [facility], in [address] [phone] Zenia King M.D. 1 Orders Only [facility] Zenia King M.D. 1 8:37 AM CDT - 1 11:59 PM CDT Hospital Encounter Department of Laboratory Medicine in [address] [phone] Jay Guzman M.B.B.S., M.D. Hyperlipidemia Discharge Disposition: Home or Self Care 1 11:00 AM CDT Office Visit Department of Cardiovascular Diseases in [address] [address] Jorge Ordaz M.D. Atrial Fibrillation Longstanding Persistent (HCC) (Primary Dx) 1 10:18 AM CDT - 1 11:59 PM CDT Hospital Encounter Department of Laboratory Medicine in [place], [place] [address] [place] [address] Jorge Ordaz M.D. Atrial Fibrillation Longstanding Persistent (HCC) Discharge Disposition: Home or Self Care 1 Orders Only [facility] Jay Guzman M.B.B.S., M.D. Hyperlipidemia 1 10:15 AM CDT Ancillary Procedure Department of Otorhinolaryngology 1 10:10 AM CDT Ancillary Procedure Department of Otorhinolaryngology 1 11:00 AM CDT Comprehensive Visit Department of Otorhinolaryngology in [place], [place] [address] [address] Genna Reynoso P.A.-C. Dysphonia (Primary Dx); Cyst Laryngeal 1 Orders Only Department of Family Medicine, [facility], in [address] [address] America Son, FRANCIS, C.N.P., R.N. 1 10:20 AM CDT Admin Visit Urgent Care in [place], [place] [address] [address] Preoperative Exam 1 10:20 AM CDT - 1 11:59 PM CDT Hospital Encounter Department of Radiology in [place], [address] [address] America Son, FRANCIS, C.N.P., R.N. Screening Osteoporosis Discharge Disposition: Home or Self Care 1 10:22 AM CDT - 1 11:59 PM CDT Hospital Encounter Department of Radiology in [address] [address] Jay Guzman M.B.BJuan AlbertoSLeonarda Avendano Screening Mammogram Breast Cancer Discharge Disposition: Home or Self Care 1 Clinical Communication Department of Otorhinolaryngology in [address] [address] Genna Reynoso, P.A.-C. 1 Clinical Communication Department of Otorhinolaryngology in [address] [address] Genna Reynoso, P.A.-C. 1 Orders Only [facility] Jay Guzman M.B.B.SJuan Alberto, Leonarda Screening Mammogram Breast Cancer 1 12:45 PM CDT - 1 11:59 PM CDT Hospital Encounter Department of Radiology in [address] [address] Bobby Stuart M.D. Pain Shoulder Right Discharge Disposition: Home or Self Care 1 1:15 PM CDT Office Visit Department of Orthopedic Surgery in [address] [address] Bobby Stuart M.D. Pain Shoulder Right (Primary Dx) 1 Refill Department of Cardiovascular Diseases in [address] [address] Jorge Ordaz M.D. Med Refill 1 Clinical Communication Department of [facility], in [place], [place] [address] [facility] [place] [address] Angela Basurto R.N. Results 1 1:30 PM PROJECTS MANAGER Immunization Department of [facility], [facility], in [address] [address] Zenia King M.D. 1 12:06 PM PROJECTS MANAGER - 1 11:59 PM PROJECTS MANAGER Hospital Encounter Department of Radiology in [address] [place] [address] Kelly Capps, M.H.S.A., R.N. Pain Rib Discharge Disposition: Home or Self Care 1 11:30 AM PROJECTS MANAGER Office Visit Department of [facility], in [address] [place] [address] Kelly Capps, M.H.S.A., R.N. Encounter For Other Specified Aftercare (Primary Dx); Pain Rib; Pain Knee Left 1 Orders Only [facility] Z[facility] King M.D. 1 Orders Only [facility] Jay Guzman M.B.B.SJuan Alberto, M.Tye Screening Mammogram Breast Cancer 0 Clinical Communication Department of [facility], in [place], [place] [address] [facility] [place] [address] Andreas Blair M.D. Communication (PCP change) 0 10:00 AM PROJECTS MANAGER Office Visit Department of [facility], in [address] [place] [address] America Son, SENIOR EDUCATION SPECIALIST, C.N.P., R.N. Screening Osteoporosis (Primary Dx); Atrial Fibrillation Longstanding Persistent (HCC); Chronic Diastolic (Congestive) Heart Failure (HCC); Hyperlipidemia; Osteoporosis; Cyst Laryngeal; Need Vaccine Immunization Influenza 0 8:22 AM CDT - 0 11:59 PM CDT Hospital Encounter Department of Laboratory Medicine in [address] [phone] Andreas Blair M.D. Screening Examination Diabetes Mellitus; Hyperlipidemia Discharge Disposition: Home or Self Care 0 Nurse Triage Department of [facility], in [address] [address] Manisha Fernando R.N. Throat Problem; COVID Nurse Line 0 Clinical Communication Division of [facility] Internal Medicine, [facility] in [place], [place] [address] [place] [address] [facility] COVID Nurse Line 0 Orders Only Department of Family [facility], [facility], in [address] [address] America Son APRN, C.N.P., R.N. 0 Clinical Communication Department of [facility], [facility], in [address] [address] America Son APRN, C.N.P., R.N. Pre-visit Testing Orders 0 8:58 AM CDT - 0 11:59 PM CDT Hospital Encounter Department of Laboratory Medicine in [address] [address] Jorge Ordaz M.D. Pain Chest Atypical Discharge Disposition: Home or Self Care 0 9:45 AM CDT Office Visit Department of Cardiovascular Diseases in [address] [address] Jorge Ordaz M.D. Atrial Fibrillation Longstanding Persistent (HCC) (Primary Dx) 0 Orders Only [facility] Andreas Blair M.D. Screening Mammogram Breast Cancer; Hyperlipidemia 0 Orders Only [facility] PCP [facility] Andreas Blair M.D. Screening Examination Diabetes Mellitus 0 3:44 PM CDT - 0 11:59 PM CDT Hospital Encounter Department of Laboratory Medicine in [address] [address] Jay Guzman M.B.B.S., M.D. Viral Syndrome Discharge Disposition: Home or Self Care 0 Clinical Communication Department of Family Medicine, [facility], in [address] [address] Andreas Blair M.D. 0 Clinical Communication Department of Cardiovascular Diseases in [place], [place] [address] [place] [address] Jorge Ordaz M.D. verapamil (communication) 0 9:45 AM CDT Virtual Visit Department of Cardiovascular Diseases in [address] [address] Jorge Ordaz M.D. Pain Chest Atypical (Primary Dx) 0 11:15 AM CDT Virtual Visit Department of Cardiovascular Medicine in [place], [place] [address] [place] [address] Chris Silva M.D., Ph.D. Atrial Fibrillation Longstanding Persistent (HCC) 0 Clinical Communication Outpatient Surgery and Procedural Admissions in [place], [place] [address] [place] [address] Becka Baez R.N. Follow-up 0 1:57 PM CDT - 0 11:59 PM CDT Hospital Encounter Department of Laboratory Medicine in [address] [address] Chris Silva M.D., Ph.D. Atrial Fibrillation Longstanding Persistent (HCC) Discharge Disposition: Home or Self Care 0 1:15 PM CDT - 0 1:56 PM CDT Hospital Encounter Department of Cardiovascular Diseases in [address] [address] Chris Silva M.D., Ph.D. Atrial Fibrillation Longstanding Persistent (HCC) Discharge Disposition: Home or Self Care 0 Clinical Communication Department of Cardiovascular Medicine in [place], [place] [address] [place] [address] Caleb Mariee R.N. Nurse chart review 0 10:55 AM PROJECTS MANAGER - 0 11:08 AM PROJECTS MANAGER Hospital Encounter Department of Radiology in [address] [address] Jorge Ordaz M.D. Atrial Fibrillation Longstanding Persistent (HCC) Discharge Disposition: Home or Self Care 0 11:09 AM PROJECTS MANAGER - 0 11:59 PM PROJECTS MANAGER Hospital Encounter Department of Laboratory Medicine in [address] [address] Jorge Ordaz M.D. Atrial Fibrillation Longstanding Persistent (HCC) Discharge Disposition: Home or Self Care 0 Nurse Triage Department of Family Medicine, [facility], in [place], [place] [address] [place] [address] Carly Loomis RJuan AlbertoN. 0 Orders Only Department of Cardiovascular Diseases in [place], [place] [address] [place] [address] Jorge Ordaz M.D. Longstanding Persistent Atrial Fibrillation (HCC) (Primary Dx) 0 Clinical Communication Department of Cardiovascular Diseases in [address] [address] Jorge Ordaz M.D. 9 1:00 PM PROJECTS MANAGER Ancillary Procedure Department of [facility], [facility], in [address] [address] Jorge Ordaz M.D. Longstanding Persistent Atrial Fibrillation (HCC) 9 9:00 AM PROJECTS MANAGER Office Visit Department of Cardiovascular Diseases in [address] [address] Jorge Ordaz M.D. Longstanding Persistent Atrial Fibrillation (HCC) (Primary Dx) 9 7:59 AM CDT - 9 11:59 PM CDT Hospital Encounter Department of Laboratory Medicine in [address] [address] Andreas Blair M.D. Monitoring For Therapeutic Drug Therapy; Hyperlipidemia; Anemia Discharge Disposition: Home or Self Care 9 Orders Only Department of [facility], [facility], in [address] [address] Andreas Blair M.D. Anemia (Primary Dx) 9 Clinical Communication Department of [facility], [facility], in [place], [place] [address] [place] [address] Andreas Blair M.D. 9 10:23 AM CDT - 9 11:59 PM CDT Hospital Encounter Department of Radiology in [place], [place] [address] [address] Andreas Blair M.D. Screening Mammogram Breast Cancer Discharge Disposition: Home or Self Care 9 Clinical Communication Department of Family Medicine, [facility], in [address] [address] Mago Hogue M.S.N., R.N. Medicare Annual Wellness Visit Subsequent 9 Orders Only [facility] Andreas Blair M.D. Monitoring For Therapeutic Drug Therapy; Hyperlipidemia 9 12:26 PM CDT - 9 11:59 PM CDT Hospital Encounter Department of Cardiovascular Diseases in [place], [place] [address] [place] [address] Jorge Ordaz M.D. Pain Chest Discharge Disposition: Home or Self Care 9 7:45 AM CDT Office Visit Department of Cardiovascular Diseases in [address] [address] Jorge Ordaz M.D. Persistent Atrial Fibrillation (Primary Dx); Pain Chest 9 Clinical Communication Department of Cardiovascular Diseases in [address] [address] Jorge Ordaz M.D. 9 Orders Only Department of Family Medicine, [facility], in [address] [place] [address] Andreas Blair M.D. 9 1:15 PM CDT Office Visit Department of Family Medicine, [facility], in [address] [address] Andreas Blair M.D. Cellulitis Toe Right (Primary Dx) 9 Clinical Communication Department of Family Medicine, [facility], in [place], [place] [address] [place] [address] Andreas Blair M.D. Washing Machine Striper recommendation 9 Nurse Triage Department of Family Medicine, [facility], in [place], [place] [address] [place] [address] Diana Winslow, REsme 9 Orders Only Department of [facility] [place], [facility], in [place], [place] [address] [place] [address] Phuong Goldman 8 Clinical Communication Department of [facility], in [place], [place] [address] [place] [address] Gena Etienne L.P.N. 8 Refill Department of Cardiovascular Diseases in [place], [place] [address] [place] [address] Jorge Ordaz M.D. Med Refill 8 9:15 AM PROJECTS MANAGER Office Visit Department of [facility], in [address] [address] Andreas Blair M.D. Preoperative Exam (Primary Dx); General Medical Examination Adult 8 2:45 PM PROJECTS MANAGER Office Visit Department of [facility], in [address] [address] Andreas Blair M.D. Bronchitis (Primary Dx); Fracture Rib One Sequela Right; Painful Sternal Wire Subsequent 8 3:31 PM CDT - 8 11:59 PM CDT Hospital Encounter Department of Radiology in [address] [place] [address] Reyna Gaitan APRN, C.N.P. Fracture Rib One Sequela Right Discharge Disposition: Home or Self Care 8 3:30 PM CDT Office Visit Department of [facility] in [place], [place] [address] [facility] [place] [address] Reyna Gaitan APRN, C.N.P. Fracture Rib One Sequela Right (Primary Dx) 8 Clinical Communication Department of [facility] in [place], [place] [address] [place] [address] Reyna Gaitan APRN, C.N.P. 8 3:49 PM CDT - 8 11:59 PM CDT Hospital Encounter Department of Radiology in [place], [place] [address] [place] [address] Reyna Gaitan APRN, C.N.P. Pain Pleuritic Chest Discharge Disposition: Home or Self Care 8 3:30 PM CDT Office Visit Department of [facility] in [place], [place] [address] [facility] [place] [address] Reyna Gaitan APRN, C.N.P. Pain Pleuritic Chest (Primary Dx); Injury Chest Wall Initial 8 Nurse Triage Department of Family Medicine, [facility], in [place], [place] [address] [place] [address] Sarah Sánchez R.N. 8 2:42 PM CDT - 8 11:59 PM CDT Hospital Encounter Department of Radiology in [place], [place] [address] [place] [address] Andreas Blair M.D. Screening Osteoporosis Discharge Disposition: Home or Self Care 8 Clinical Communication Department of Family Medicine, [facility], in [address] [address] Daija Betancourt R.N. Medicare Annual Wellness Visit Initial 8 10:05 AM CDT Ancillary Procedure Department of Otorhinolaryngology 8 9:45 AM CDT Comprehensive Visit Department of Otorhinolaryngology in [place], [place] [address] [place] [address] Beau Back M.D. Cyst Vocal Cord 8 Orders Only Department of Otorhinolaryngology in [place], [place] [address] [place] [address] Genna Reynoso P.A.-C. Cyst Vocal Cord (Primary Dx) 8 8:50 AM CDT - 8 11:59 PM CDT Hospital Encounter Department of Laboratory Medicine in [address] [address] Andreas Blair M.D. Hyperlipidemia Discharge Disposition: Home or Self Care 8 Clinical Communication Department of [facility], in [address] [address] Marcos Westbrook M.D. 8 9:30 AM CDT Office Visit Department of Cardiovascular Diseases in [address] [address] Jorge Ordaz M.D. Persistent Atrial Fibrillation (Primary Dx) 8 4:15 PM CDT Comprehensive Visit Department of Otorhinolaryngology in [place], [place] [address] [place] [address] Marcos Westbrook M.D. Cyst Laryngeal (Primary Dx); Hoarseness; Dysphonia; Drip Post Nasal; Cough Chronic 8 10:00 AM CDT Comprehensive Visit [facility] Clinic in [place], [place] [address] [place] [address] Haven Baig M.D. Satisfactory Breast Exam (Primary Dx); Pain Breast 8 11:15 AM CDT Office Visit Department of [facility], [facility], in [address] [address] Andreas Blair M.D. Lesion Skin Chest (Primary Dx) 8 Clinical Communication Department of [facility], [facility], in [place], [place] [address] [place] [address] Andreas Blair M.D. 8 11:57 AM CDT - 8 11:59 PM CDT Hospital Encounter Department of Radiology in [address] [address] Anderas Blair M.D. Hoarseness Discharge Disposition: Home or Self Care 8 10:15 AM CDT Office Visit Department of [facility], in [address] [address] Andreas Blair M.D. Hoarseness (Primary Dx); Pain Breast; Screening Osteoporosis; Xerosis; Other Chest Pain 8 10:15 AM CDT Office Visit Department of [facility], [facility], in [address] [address] Andreas Blair M.D. Encounter For Removal Of Sutures (Primary Dx) 8 Orders Only Department of [facility], [facility], in [address] [address] Andreas Blair M.D. Hyperlipidemia (Primary Dx); Screening Mammogram Average Risk Patient 8 3:00 PM CDT Office Visit Department of [facility], [facility], in [address] [address] Andreas Blair M.D. Wound Hand Open Initial Left (Primary Dx) 8 1:15 PM CDT Comprehensive Visit Department of Orthopedic Surgery in [address] [address] Guanakito Bauman M.D. Fracture Toe Closed Initial Right 8 3:19 PM CDT - 8 11:59 PM CDT Hospital Encounter Department of Radiology in [address] [address] Jay Guzman M.B.B.SLeonarda Avendano Swelling Toe Discharge Disposition: Home or Self Care 8 2:45 PM CDT Office Visit Department of [facility], [facility], in [address] [address] Jay Guzman M.B.B.SLeonarda Avendano Fracture Toe Closed Initial Right (Primary Dx) 8 Nurse Triage Department of Family Medicine, [facility], in [place], [place] [address] [place] [address] Zaida Muñoz, RJuan AlbertoNJuan Alberto 8 Clinical Communication Department of Family Medicine, [facility], in [place], [place] 0 [facility] [place] [address] Andreas Blair M.D. 8 Clinical Communication Department of Family [facility], [facility], in [address] [address] Andreas Blair M.D. Communication 8 8:00 AM PROJECTS MANAGER Office Visit Department of Family Medicine, [facility], in [place], [place] [address] [place] [address] Andreas Blair M.D. Dysuria (Primary Dx); Cystitis Acute 8 9:15 AM PROJECTS MANAGER Office Visit Department of Cardiovascular Diseases in [place], [place] [address] [place] [address] Jorge Ordaz M.D. Persistent Atrial Fibrillation (Primary Dx); Chronic Diastolic (Congestive) Heart Failure (HCC) 7 7:58 AM PROJECTS MANAGER - 7 11:59 PM PROJECTS MANAGER Hospital Encounter Department of Laboratory Medicine in [place], [place] [address] [place] [address] Kyung Valdovinos M.D. Bleeding Postmenopausal Discharge Disposition: Home or Self Care 7 9:15 AM PROJECTS MANAGER Office Visit Department of Obstetrics and Gynecology in [place], [place] [address] [place] [address] Kyung Valdovinos M.D. Bleeding Postmenopausal (Primary Dx); Abnormal Ultrasound Endometrium 7 Clinical Communication Department of Cardiovascular Diseases in [place], [place] [address] [place] [address] Adaligsa Domingo L.P.N. Communication 7 Orders Only Department of Obstetrics and Gynecology in [place], [place] [address] [place] [address] Kyung Valdovinos M.D. 7 Clinical Communication Department of Family Medicine, [facility], in [place], [place] [address] [place] [address] Kyung Valdovinos M.D. checking on appointment 7 12:18 PM PROJECTS MANAGER - 7 11:59 PM PROJECTS MANAGER Hospital Encounter Department of Cardiovascular Diseases in [place], [place] [address] [place] [address] Jorge Ordaz M.D. Regurgitation Mitral Discharge Disposition: Home or Self Care 7 Orders Only Department of Cardiovascular Diseases in [place], [place] [address] [place] [address] Jorge Ordaz M.D. 7 Abstract Department of Family Medicine, [facility], in [place], [place] [address] [place] [address] Provider, Historical 7 8:08 AM CDT - 7 11:59 PM CDT Hospital Encounter [facility]X [facility] Kyung Dailey M.D. 7 Abstract Department of Family Medicine in [place], [place] [address] [place] [address] Provider, Historical 7 3:31 AM CDT - 7 11:59 PM CDT Hospital Encounter HX NO MAPPING Kyung Valdovinos M.D. 7 8:37 AM CDT - 7 11:59 PM CDT Hospital Encounter HX [facility] FBKyung Blackwell M.D. 7 9:22 AM CDT - 7 [...] HX [facility] FAMILYPRA Andreas Blair M.D. 7 11:12 AM CDT - 7 [...] CARDIOLOGY Jorge Ordaz M.D. 6 9:38 AM PROJECTS MANAGER - 6 11:59 PM PROJECTS MANAGER Hospital Encounter [facility]X [facility] CARDIOLOGY Felicita Winston M.D., M.P.H. 6 9:51 AM CDT - 6 11:59 PM CDT Hospital Encounter [facility]X [facility] CARDIOLOGY Teodoro Cooney M.D. 6 3:52 PM CDT - 6 11:59 PM CDT Hospital Encounter [facility]X [facility] FBHB FAMILYPRA Travis Waggoner M.D. 6 9:15 AM CDT - 6 11:59 PM CDT Hospital Encounter HX NO Santo Joseph M.D. 6 1:46 PM CDT - 6 11:59 PM CDT Hospital Encounter HX [facility] FBHB INTERNBeni London M.D. 6 2:53 PM CDT - 6 11:59 PM CDT Hospital Encounter HX [facility] FBHB Beni Guillen M.D. 6 1:11 PM CDT - 6 [...] PM CDT Hospital Encounter HX NO Santo Jsoeph M.D. 6 1:46 PM CDT - 6 11:59 PM CDT Hospital Encounter HX [facility] FBHB INTERNBeni London M.D. 6 1:53 PM CDT - 6 11:59 PM CDT Hospital Encounter HX [facility] FBHB FAMILYPRA Travis Waggoner M.D. 6 12:24 PM CDT - 6 11:59 PM CDT Hospital Encounter HX [facility] CARDIOLOG Felicita Winston M.D., M.P.H. 6 10:41 AM CDT - 6 11:59 PM CDT Hospital Encounter HX [facility] ECHO Felicita Winston M.D., M.P.H. 6 10:23 AM CDT - 6 11:59 PM CDT Hospital Encounter HX [facility] NURSE Felicita Ashton M.D., M.P.H. 6 12:25 PM PROJECTS MANAGER - 6 11:59 PM PROJECTS MANAGER Hospital Encounter HX [facility] FBHB Zenia Waters M.D. 6 11:55 AM PROJECTS MANAGER - 6 11:59 PM PROJECTS MANAGER Hospital Encounter HX [facility] FB[facility] CARDIOLOG Felicita Winston M.D., M.P.H. 6 1:52 PM PROJECTS MANAGER - 6 11:59 PM PROJECTS MANAGER Hospital Encounter HX [facility] INTERNArchana Siddiqi M.D. 6 9:14 AM PROJECTS MANAGER - 6 11:59 PM PROJECTS MANAGER Hospital Encounter HX [facility] FBHB Beni Waters M.D. 6 9:45 AM PROJECTS MANAGER - 6 11:59 PM PROJECTS MANAGER Hospital Encounter HX [facility] FB[facility] NURSE Felicita Ashton M.D., M.P.H. 6 9:16 AM PROJECTS MANAGER - 6 11:59 PM PROJECTS MANAGER Hospital Encounter HX [facility] FBHB NURSE Felicita Ashton M.D., M.P.H. 6 9:16 AM PROJECTS MANAGER - 6 11:59 PM PROJECTS MANAGER Hospital Encounter HX [facility] FBHB Beni Kilgore M.D. 6 9:50 AM PROJECTS MANAGER - 6 11:59 PM PROJECTS MANAGER Hospital Encounter HX [facility] FBHB Beni Waters M.D. 6 9:24 AM PROJECTS MANAGER - 6 11:59 PM PROJECTS MANAGER Hospital Encounter HX [facility] FBHB Beni Waters M.D. 6 7:34 AM PROJECTS MANAGER - 6 11:59 PM PROJECTS MANAGER Hospital Encounter HX [facility] FBHB NURSE Felicita Ashton M.D., M.P.H. 6 12:17 PM PROJECTS MANAGER - 6 11:59 PM PROJECTS MANAGER Hospital Encounter HX [facility] FBHB CARDIOLOG Felicita Winston M.D., M.P.H. 6 7:36 AM PROJECTS MANAGER - 6 11:59 PM PROJECTS MANAGER Hospital Encounter HX [facility] FBHB NURSE Beni Wen M.D. 6 7:50 AM PROJECTS MANAGER - 6 11:59 PM PROJECTS MANAGER Hospital Encounter HX [facility] FBHB Beni Waters M.D. 6 2:25 PM PROJECTS MANAGER - 6 11:59 PM PROJECTS MANAGER Hospital Encounter HX [facility] FBHB Beni Waters M.D. 6 3:11 PM PROJECTS MANAGER - 6 11:59 PM PROJECTS MANAGER Hospital Encounter HX [facility] FBHB Beni Castano M.D. 6 1:01 PM PROJECTS MANAGER - 6 11:59 PM PROJECTS MANAGER Hospital Encounter HX [facility] FB[facility] NURSE Felicita Ashton M.D., M.P.H. 6 11:31 AM PROJECTS MANAGER - 6 11:59 PM PROJECTS MANAGER Hospital Encounter HX [facility] FBHB CARDIOLOG Felicita Winston M.D., M.P.H. 6 9:07 AM PROJECTS MANAGER - 6 11:59 PM PROJECTS MANAGER Hospital Encounter HX [facility] FBHB KRISTINMED Beni Turpin M.D. 6 8:23 AM PROJECTS MANAGER - 6 11:59 PM PROJECTS MANAGER Hospital Encounter HX [facility] FBHB Beni Waters M.D. 6 12:47 AM PROJECTS MANAGER - 6 6:50 PM PROJECTS MANAGER Hospital Encounter HX RST MARY 5C Perry Lozano M.D., M.P.H. 6 3:58 PM PROJECTS MANAGER - 6 12:47 AM PROJECTS MANAGER Emergency HX RST EMERGENCY TRAUMA UNI Provider, Historical 6 10:21 AM PROJECTS MANAGER - 6 11:59 PM PROJECTS MANAGER Hospital Encounter HX [facility] FBHB Beni Waters M.D. 5 7:35 AM PROJECTS MANAGER - 5 11:59 PM PROJECTS MANAGER Hospital Encounter HX [facility] FBHB Beni Guillen M.D. 5 9:02 AM PROJECTS MANAGER - 5 11:59 PM PROJECTS MANAGER Hospital Encounter HX [facility] FBHB Beni Waters M.D. 5 10:29 AM PROJECTS MANAGER - 5 11:59 PM PROJECTS MANAGER Hospital Encounter HX [facility] FBHB Beni Waters M.D. 5 2:47 PM PROJECTS MANAGER - 5 11:59 PM PROJECTS MANAGER Hospital Encounter HX [facility] FBHB Beni Guillen M.D. 5 10:45 AM PROJECTS MANAGER - 5 11:59 PM PROJECTS MANAGER Hospital Encounter HX [facility] FBHB Beni Waters M.D. 5 6:57 AM PROJECTS MANAGER - 5 6:01 PM PROJECTS MANAGER Hospital Encounter HX RST MAGDALENA JOSHI 5C 5 - 5 11:59 PM PROJECTS MANAGER Hospital Encounter HX NO MAPPING Provider, Historical 5 - 5 11:59 PM PROJECTS MANAGER Hospital Encounter HX NO MAPPING Provider, Historical 5 7:11 AM PROJECTS MANAGER - 5 11:59 PM PROJECTS MANAGER Hospital Encounter HX NO MAPPING Louis Kaylah Fabian 5 11:39 AM PROJECTS MANAGER - 5 11:59 PM PROJECTS MANAGER Hospital Encounter HX NO MAPPING Alexandra Graves Maxim 5 7:45 AM PROJECTS MANAGER - 5 11:59 PM PROJECTS MANAGER Hospital Encounter HX NO MAPPING Beni Turpin M.D. 5 10:59 AM PROJECTS MANAGER - 5 11:59 PM PROJECTS MANAGER Hospital Encounter HX [facility] FBHB LAB Beni Turpin M.D. 5 9:31 AM PROJECTS MANAGER - 5 11:59 PM PROJECTS MANAGER Hospital Encounter HX [facility] FBHB INTERNMED Beni Turpin M.D. 5 8:29 AM PROJECTS MANAGER - 5 11:59 PM PROJECTS MANAGER Hospital Encounter HX [facility] FB[facility] CARDIOLOG Felicita Winston M.D., M.P.H. 5 9:02 AM PROJECTS MANAGER - 5 2:08 PM PROJECTS MANAGER Hospital Encounter HX RST DOMGILA 4D Nadja Alberto M.D. 5 7:53 AM PROJECTS MANAGER - 5 11:59 PM PROJECTS MANAGER Hospital Encounter HX NO MAPPING 5 3:31 PM CDT - 5 11:59 PM CDT Hospital Encounter HX [facility] FBHB INTERNMED Beni Turpin M.D. 5 10:41 AM CDT - 5 11:59 PM CDT Hospital Encounter HX [facility] FB[facility] NURSE ARTIL Beni Turpin M.D. 5 9:53 AM CDT [...] INTERNMED Beni Turpin M.D. 3 1:42 PM PROJECTS MANAGER - 3 11:59 PM PROJECTS MANAGER Hospital Encounter HX NO MAPPING Francisco Jackson M.D. 3 8:17 AM PROJECTS MANAGER - 3 11:59 PM PROJECTS MANAGER Hospital Encounter HX [facility] FBHB INTERNBeni London M.D. 3 9:40 AM PROJECTS MANAGER - 3 11:59 PM PROJECTS MANAGER Hospital Encounter HX [facility] BONE DENS Beni Turpin M.D. 3 12:20 PM PROJECTS MANAGER - 3 11:59 PM PROJECTS MANAGER Hospital Encounter HX [facility] FBHB Beni Lemus M.D. 1 4:20 PM CDT - 1 11:59 PM CDT Hospital Encounter HX [facility] FBHB Beni Samano M.D. 1 10:38 AM CDT - 1 11:59 PM CDT Hospital Encounter HX [facility] FBHB Beni Lemus M.D. 1 9:21 AM CDT - 1 11:59 PM CDT Hospital Encounter HX [facility] ULTRASOUN Beni Turpin M.D. 1 8:51 AM CDT - 1 11:59 PM CDT Hospital Encounter HX [facility] FBHB Beni Guillen M.D. 1 2:40 PM PROJECTS MANAGER - 1 11:59 PM PROJECTS MANAGER Hospital Encounter HX [facility] SURGEON Francisco Jackson M.D. 0 2:40 PM PROJECTS MANAGER - 0 11:59 PM PROJECTS MANAGER Hospital Encounter HX [facility]BC[facility] SURGEON Francisco Jackson M.D. 0 2:23 PM CDT - 0 11:59 PM CDT Hospital Encounter HX [facility] FBHB LAB Beni Turpin M.D. 0 10:20 AM CDT - 0 11:59 PM CDT Hospital Encounter HX [facility] FB[facility] BONE DENS Beni Turpin M.D. 0 10:56 AM CDT - 0 11:59 PM CDT Hospital Encounter HX [facility] FB[facility] LAB Beni Turpin M.D. 0 9:09 AM CDT - 0 11:59 PM CDT Hospital Encounter HX [facility] ECHO Beni Turpin M.D. 0 8:49 AM CDT - 0 11:59 PM CDT Hospital Encounter HX [facility] FBHB INTERNMED Beni Turpin M.D. 0 10:53 AM CDT - 0 11:59 PM CDT Hospital Encounter HX [facility] FBHB NURSE ONL Beni Turpin M.D. 9 [...] Light sensitivity Levofloxacin Other (see comments) 01/06/2013 Tereso listed no reactions Naproxen Other (see comments) [...] a week. Once a week Active vitamins A,C,E-zinc-scleroscope tester per (PRESERVISION AREDS) 7,160 Units-113 mg-100 Units [...] bedtime. Apply twice weekly. 30 g 3 5 Active UNABLE TO FIND Take 1 each by mouth once daily. Med Name: calm (magnesium citrate) 1/2 tsp Active UNABLE TO FIND Take 1 each by mouth daily. Med Name: Calm with calcium (magnesium citrate, calcium, potassium and boron) 1 tsp daily Active terbinafine (LamISIL) 250 mg tabletIndicati ons:Onychomyco sis Take 1 tablet (250 mg total) by mouth daily. Active UNABLE TO FIND Med Name: AlgaeCal - calcium, magnesium, boron, vitamin K1, D, & C Active phytonadione, vitamin K1, (Mephyton) 100 mcg tablet Take 100 mcg by mouth once. 08/31/20 25 Discontin ued(Error ) dilTIAZem (Cardizem) 60 mg tablet Take 1 tablet (60 mg total) by mouth every 6 (six) hours. 360 tablet 08/08/2025 9:14 AM CDT 08/26/20 25 Discontin ued(Thera py completed ) Hospital, Clinic, or Other Facility Administered Medication Ordered Dose Route Frequency Start Date End Date Status sodium chloride 0.9 % injection 10 mL 10 mL IV As needed 12/08/2024 Discontinued fluorescein 100 mg/mL (10 %) injection 500 mg 500 mg IV Once in imaging 12/08/2024 08/31/20 2 5 Discontinued Active Problems Patient Care Coordination No te Formatting of this note migh t be different from the original. Release of Information (Family and Friends) Spouse: Shiv Vallejo Problem Noted Date Diagnosed Date Pacemaker Cardiac Status Post 08/30/2025 Overview (08/30/2025): Status post Aveir leadless permanent pacemaker implantation, August 2025 Ablation Atrioventricular Node Status Post 08/30 Overview (08/30/2025): August 2025 Apnea Sleep Obstructive 08/28/2025 Atrial Fibrillation Permanent 08/21/2025 Atypical Atrial Flutter 11/28/2024 History Of Falling 11/05/2021 Cyst Laryngeal 09/20/2020 Overview (09/20/2020): August 19, 2018: Laryngoscopy [facility]: Left laryngeal saccular cyst Chronic Diastolic (Congestive) [...] Chest Wall Initial 09/09/2018 Thrombocytopenia 10/05/2017 08/29/2020 Halfway (Current) Anticoagulant Treatment 10/24/2015 09/20/2020 Immunizations Immunization [...] Alive Social History Smoking Status as of 09/02/2025 Tobacco Use Types Packs/Day Years Used Date [...] things needed for daily living? No 08/31/2025 [facility] Utilities Answer Date Recorded In the past 12 months has e electric, gas, oil, or water company threatened to shut off services in your home? No 08/31/2025 Depression Answer Date Recor ded PHQ-9 Total Score (max 27) 0 12/02 Housing Stability Answer Date Recorded What is your living situation today? I have a [facility] place to live 08/31/2025 Education Answer Date Recorded What is the highest level of school you have completed or the highest degree you have received? Doctorate 10/14/2019 Sex and Gender Information Value Date Recorded Sex Assigned at Female 08/18/2021 8:27 PM CDT Legal Sex Female 6:20 AM PROJECTS MANAGER Gender Identity Female 08/18/2021 8:27 PM [...] Mass Index 21.21 08/30/2025 11:54 AM CDT Plan of Treatment Upcoming Encounters Date Type Department Care Team (Late st Contact Info) Description 09/06/2025 10:20 AM CDT Office Visit Department of Family Medicine, [facility], in [place], [place] [address] [place] [address] Jay Guzman M.B.B.S., M.D. [address] [place] [address] 10/24/2025 1:00 PM PROJECTS MANAGER Appointment Department of Cardiovascular Diseases in [place], [place] [address] [place] [address] Jorge Ordaz M.D. [address] [place] [address] Medical Devices Implanted Type Area Tire Mold Tester Device Identifier Shelf Expiration Date Model / Serial / Lot Ring Annuloflex Carbomedics 26mm - Maldonado [id number] Implanted:Qty: 1 on 10/15/2015 Cardiac Valve Prosthesis Other/Legacy - See Implant Description Carbomedics Description:Device Manufactu rer - Carbomedics. Body Location - Other. Tricuspid. Device Status Text - [id number]. Ring Annuloflex Carbomedics 32mm - Maldonado [id number] Implanted:Qty: 1 on 10/15/2015 Cardiac Valve Prosthesis Other/Legacy - See Implant Description Carbomedics Description:Device Manufactu rer - Carbomedics. Body Location - Other. Mitral. Device Status Text - [id number]. [facility] Shen[facility] [id number] - [id number] - [id number] Implanted:Qty: 1 on 08/30/2025 by Perry Lozano M.D., M.P.H. at [facility] Pacemaker [employer] 04/27/2027 [id number] / [id number] / Description:Aveir VR Leadles s Pacemaker Stjudemed Aveir Lp [id number] Implanted:08/16 (Quantity not on file) Pacemaker [employer]a Division of [employer]) AVEIR LP [id number] / [id number] / Procedures Procedure Name Priority Date/Time Associated Diagnosis Comments CAR CARDIAC DEVICE INTERROGATION Routine 08/31/2025 9:14 AM CDT Procedure Note - Motion Picture Camera OperatorCarl M.D. - 08/31/2025 9:14 AM CDTThis [...] DEVICE INTERROGATION Routine 08/30/2025 3:37 PM CDT BMD BONE DENSITY SPINE HIPS RAD [...] Stable Right (HCC) OPHTHALMOLOGY IMAGE EXAM Routine 03/29/2025 12:00 AM CDT ECG Routine 01/23/2025 12:19 PM CDT Atrial Fibrillation Longstanding Persistent (HCC) Atrial Fibrillation Unspecified (HCC) BASIC METABOLIC PANEL, S/P Routine 01/23/2025 9:36 AM CDT Atrial Fibrillation Longstanding Persistent (HCC) Atrial Fibrillation Unspecified (HCC) DERMATOLOGY IMAGE EXAM Routine 12:05 AM PROJECTS MANAGER OPHTHALMOLOGY IMAGE EXAM Routine 01/02/2025 12:00 AM PROJECTS MANAGER OPTICAL COHERENCE TOMOGRAPHY - MACULA/RETINA - OU - BOTH EYES Routine 12/27/2024 10:40 AM PROJECTS MANAGER 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) OPHTHALMOLOGY IMAGE EXAM Routine 12/27/2024 9:20 AM PROJECTS MANAGER AUTOMATED VF - EXTENDED - OU - BOTH EYES Routine 12/27/2024 9:19 AM PROJECTS MANAGER 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) OPHTHALMOLOGY IMAGE EXAM Routine 12/27/2024 12:00 AM PROJECTS MANAGER COLON AND RECTAL SURGERY IMAGE EXAM Routine 12/20/2024 11:15 AM PROJECTS MANAGER BASIC METABOLIC PANEL, S/P Routine 12/12/2024 12:15 PM PROJECTS MANAGER Atrial Fibrillation Longstanding Persistent (HCC) Atrial Fibrillation Unspecified (HCC) CBC WITHOUT DIFFERENTIAL, B Routine 12/12/2024 12:15 PM PROJECTS MANAGER Atrial Fibrillation Longstanding Persistent (HCC) Atrial Fibrillation Unspecified (HCC) PHYSICAL MEDICINE AND REHAB IMAGE EXAM Routine 12/06/2024 9:15 AM PROJECTS MANAGER MAGNESIUM, S Routine 12/06/2024 7:49 AM PROJECTS MANAGER BASIC METABOLIC PANEL, S/P Routine 12/06/2024 7:49 AM PROJECTS MANAGER ECG Routine 12/05/2024 12:32 PM PROJECTS MANAGER PHYSICAL MEDICINE AND REHAB IMAGE EXAM Routine 12/05/2024 9:30 AM PROJECTS MANAGER ADULT OXYGEN THERAPY Routine 12/05/2024 8:01 AM PROJECTS MANAGER CBC WITH DIFFERENTIAL, B Routine 12/05/2024 6:30 AM PROJECTS MANAGER BASIC METABOLIC PANEL, S/P Routine 12/05/2024 6:30 AM PROJECTS MANAGER ADULT OXYGEN THERAPY Routine 12/04/2024 8:00 PM PROJECTS MANAGER CBC WITH DIFFERENTIAL, B Routine 12/04/2024 10:58 AM PROJECTS MANAGER BASIC METABOLIC PANEL, S/P Routine 12/04/2024 10:58 AM PROJECTS MANAGER PHYSICAL MEDICINE AND REHAB IMAGE EXAM Routine 12/04/2024 9:40 AM PROJECTS MANAGER ADULT OXYGEN THERAPY Routine 12/04/2024 8:00 AM PROJECTS MANAGER ADULT OXYGEN THERAPY Routine 12/03/2024 8:00 PM PROJECTS MANAGER CARDIOLOGY ENCOUNTER IMAGE EXAM Routine 12/03/2024 9:55 AM PROJECTS MANAGER ADULT OXYGEN THERAPY Routine 12/03/2024 8:01 AM PROJECTS MANAGER BASIC METABOLIC PANEL, S/P Routine 12/03/2024 6:50 AM PROJECTS MANAGER CBC WITH DIFFERENTIAL, B Routine 12/03/2024 6:50 AM PROJECTS MANAGER ADULT OXYGEN THERAPY Routine 12/02/2024 8:00 PM PROJECTS MANAGER GRAM STAIN Timed 12/02/2024 6:24 PM PROJECTS MANAGER BACTERIAL CULTURE, AEROBIC + SUSC Timed 12/02/2024 6:24 PM PROJECTS MANAGER BACTERIAL CULTURE, ANAEROBIC + SUSC Timed 12/02/2024 6:24 PM PROJECTS MANAGER GRAM STAIN Timed 12/02/2024 6:24 PM PROJECTS MANAGER BACTERIAL CULTURE, AEROBIC + SUSC Timed 12/02/2024 6:[address] HAND RIGHT WITHOUT AND WITH IV CONTRAST RAD - Routine (most inpatients and all outpatients) 12/02/2024 12:46 PM PROJECTS MANAGER RAD US MUSCULOSKELETAL HAND RIGHT RAD - Routine (most inpatients and all outpatients) 12/02/2024 8:55 AM PROJECTS MANAGER ADULT OXYGEN THERAPY Routine 12/02/2024 8:01 AM PROJECTS MANAGER INTERNAL MEDICINE IMAGE EXAM Routine 12/02/2024 8:00 AM PROJECTS MANAGER BASIC METABOLIC PANEL, S/P Routine 12/02/2024 5:39 AM PROJECTS MANAGER CBC WITH DIFFERENTIAL, B Routine 12/02/2024 5:39 AM PROJECTS MANAGER ADULT OXYGEN THERAPY Routine 12/01/2024 8:01 PM PROJECTS MANAGER INTERNAL MEDICINE IMAGE EXAM Routine 12/01/2024 1:05 PM PROJECTS MANAGER MRSA/STAPHYLOCOCCUS AUREUS, NASAL, BY PCR Routine 12/01/2024 11:58 AM PROJECTS MANAGER BACTERIA / MARILYN CULTURE, BLOOD STAT 12/01/2024 11:06 AM PROJECTS MANAGER BACTERIA / MARILYN CULTURE, BLOOD STAT 12/01/2024 10:56 AM PROJECTS MANAGER MR BRAIN WITHOUT AND WITH IV CONTRAST RAD - Routine (most inpatients and all outpatients) 12/01/2024 8:49 AM PROJECTS MANAGER ADULT OXYGEN THERAPY Routine 12/01/2024 8:01 AM PROJECTS MANAGER BASIC METABOLIC PANEL, S/P Routine 12/01/2024 7:16 AM PROJECTS MANAGER CBC WITH DIFFERENTIAL, B Routine 12/01/2024 7:16 AM PROJECTS MANAGER ECG Routine 11/30/2024 10:15 PM PROJECTS MANAGER ADULT OXYGEN THERAPY Routine 11/30/2024 8:01 PM PROJECTS MANAGER CARDIOLOGY ENCOUNTER IMAGE EXAM Routine 11/30/2024 6:[address] HEAD WITHOUT IV CONTRAST RAD - Routine (most inpatients and all outpatients) 11/30/2024 4:[address] HEAD NECK ANGIOGRAM WITH IV CONTRAST RAD - Routine (most inpatients and all outpatients) 11/30/2024 4:20 PM PROJECTS MANAGER ECG Routine 11/30/2024 10:47 AM PROJECTS MANAGER ADULT OXYGEN THERAPY Routine 11/30/2024 8:02 AM PROJECTS MANAGER MAGNESIUM, S Routine 11/30/2024 7:12 AM PROJECTS MANAGER BASIC METABOLIC PANEL, S/P Routine 11/30/2024 7:12 AM PROJECTS MANAGER ECG Routine 11/29/2024 10:31 PM PROJECTS MANAGER ADULT OXYGEN THERAPY Routine 11/29/2024 8:01 PM PROJECTS MANAGER MAGNESIUM, S STAT 11/29/2024 6:21 PM PROJECTS MANAGER BASIC METABOLIC PANEL, S/P STAT 11/29/2024 6:21 PM PROJECTS MANAGER CBC WITH DIFFERENTIAL, B STAT 11/29/2024 6:21 PM PROJECTS MANAGER ECG Routine 11/29/2024 5:48 PM PROJECTS MANAGER ADULT OXYGEN THERAPY Routine 11/29/2024 5:21 PM PROJECTS MANAGER ADULT OXYGEN THERAPY Routine 11/29/2024 5:21 PM PROJECTS MANAGER ADULT OXYGEN THERAPY Routine 11/29/2024 5:21 PM PROJECTS MANAGER US UPPER EXTREMITY ARTERIES LEFT RAD - Emergent (Fastest; for the most critically ill patients) 11/29/2024 4:34 PM PROJECTS MANAGER HEART RHYTHM PROCEDURE Routine 12:44 PM PROJECTS MANAGER Atrial Fibrillation Longstanding Persistent (HCC) ABLATION - ATRIAL FLUTTER - RIGHT Routine 11/29/2024 12:44 PM PROJECTS MANAGER Atrial Fibrillation Longstanding Persistent (HCC) HEART RHYTHM PROCEDURE Routine 12:44 PM PROJECTS MANAGER Atrial Fibrillation Longstanding Persistent (HCC) ABLATION PVI Routine 11/29/2024 12:44 PM PROJECTS MANAGER Atrial Fibrillation Longstanding Persistent (HCC) HEART RHYTHM PROCEDURE Routine 12:44 PM PROJECTS MANAGER Atrial Fibrillation Longstanding Persistent (HCC) ACT, POCT, B Routine 11/29/2024 12:25 PM PROJECTS MANAGER ACT, POCT, B Routine 11/29/2024 11:59 AM PROJECTS MANAGER ACT, POCT, B Routine 11/29/2024 11:29 AM PROJECTS MANAGER ACT, POCT, B Routine 11/29/2024 10:52 AM PROJECTS MANAGER ACT, POCT, B Routine 11/29/2024 10:28 AM PROJECTS MANAGER ACT, POCT, B Routine 11/29/2024 9:54 AM PROJECTS MANAGER ACT, POCT, B Routine 11/29/2024 9:33 AM PROJECTS MANAGER LDA ANE ENDOTRACHEAL AIRWAY Routine 11/29/2024 8:42 AM PROJECTS MANAGER ECG Routine 11/28/2024 1:40 PM PROJECTS MANAGER Atrial Fibrillation Longstanding Persistent (HCC) CBC WITHOUT DIFFERENTIAL, B Routine 11/28/2024 1:18 PM PROJECTS MANAGER Atrial Fibrillation Longstanding Persistent (HCC) TYPE AND SCREEN Routine 11/28/2024 1:17 PM PROJECTS MANAGER Atrial Fibrillation Longstanding Persistent (HCC) COMPREHENSIVE METABOLIC PANEL, S/P Routine 11/28/2024 1:17 PM PROJECTS MANAGER Atrial Fibrillation Longstanding Persistent (HCC) CT CARDIAC PULMONARY VEINS WITH IV CONTRAST RAD - Routine (most inpatients and all outpatients) 11/28/2024 10:09 AM PROJECTS MANAGER Atrial Fibrillation Longstanding Persistent (HCC) ECG Routine [...] Persistent (HCC) HOLTER MONITOR - IN CLINIC CHARGE ENTRY CLERK Routine 03/10/2024 10:15 PM CDT Atrial Fibrillation Longstanding Persistent (HCC) DERMATOPATHOLOGY Routine 02/12/2024 12:16 PM CDT Tumor Skin Uncertain Behavior DERMATOLOGY IMAGE EXAM Routine 10:15 AM CDT BMD BONE DENSITY SPINE HIPS RAD - Routine (most inpatients and all outpatients) 12/24/2023 2:19 PM PROJECTS MANAGER Osteoporosis DX RIBS BILATERAL 4 VIEWS WITH CHEST POSTEROANTERIOR 1 VIEW RAD - Routine (most inpatients and all outpatients) 11/20/2023 3:58 PM PROJECTS MANAGER Osteoporosis CALCIUM, TOT, S/P Routine 11/20/2023 3:07 PM PROJECTS MANAGER Osteoporosis VITAMIN D, IMMUNOASSAY, TOTAL, S Routine 11/20/2023 3:07 PM PROJECTS MANAGER Osteoporosis BI BREAST SCREENING BILATERAL WITH TOMOSYNTHESIS RAD - Routine (most inpatients and all outpatients) 10/20/2023 2:21 PM PROJECTS MANAGER Screening Mammogram Breast Cancer LYME AB MODIFIED [...] Of Breath HOLTER MONITOR - IN CLINIC CHARGE ENTRY CLERK Routine 03/26/2023 7:10 AM CDT Palpitations Atrial [...] LIPID PANEL, S Routine 12/05/2022 3:19 PM PROJECTS MANAGER Hyperlipidemia DX HAND LEFT 3+ VIEWS RAD - Routine (mos t inpatients and all outpatients) 09/12/2022 10:39 AM [...] CDT Diarrhea CBC WITH DIFFERENTIAL, B Routine 04/28/2022 4:33 PM CDT Diarrhea GI PATHOGEN PANEL, PCR, F Routine 02/24/2022 12:46 PM CDT Diarrhea DX ABDOMEN 1 VIEW RAD - Routine (most inpatients and all outpatients) 02/24/2022 12:22 PM CDT Diarrhea AK URINALYSIS AUTO WO MICRO Routine 12/17/2021 9:10 AM PROJECTS MANAGER URINALYSIS WITH MICROSCOPIC IF INDICATED, U Routine 12/17/2021 9:10 AM PROJECTS MANAGER Hematuria LIPID PANEL, S Routine 11/26/2021 3:25 PM PROJECTS MANAGER Hyperlipidemia HEMOGLOBIN A1C, B Routine 11/26/2021 3:25 PM PROJECTS MANAGER Elevated Glucose THIAMIN (VITAMIN B1), B Routine 11/25/2021 1:45 PM PROJECTS MANAGER Concern Patient Cognition Function AK ORGANIC ACID 1 QUANT 2 Routine 11/25/2021 8:40 AM PROJECTS MANAGER PERNICIOUS ANEMIA CASCADE, S Routine 11/25/2021 8:40 AM PROJECTS MANAGER Concern Patient Cognition Function INFLUENZA A/B AND RSV, PCR, VARIES Routine 11/19/2021 1:11 PM PROJECTS MANAGER Infection Upper Respiratory SARS CORONAVIRUS-2 RNA, V Routine 11/19/2021 1:11 PM PROJECTS MANAGER Contact With And (Suspected) Exposure To COVID-19 [...] 10:49 AM CDT Screening Mammogram Breast Cancer AK ARTHCS ASP/INJ MJR JT WO US Routine 04/03/2021 1:12 PM CDT Pain Shoulder Right DX SHOULDER RIGHT 2+ VIEWS RAD - Routine (most inpatients and all outpatients) 04/03/2021 12:59 PM CDT Pain Shoulder Right DX RIBS RIGHT 2 VIEWS RAD - Routine (mos t inpatients and all outpatients) 01/17/2021 12:29 PM PROJECTS MANAGER Pain Rib LIPID PANEL, S Routine 09/11/2020 [...] FUNCTION CASCADE, S Routine 01/19/2020 11:13 AM PROJECTS MANAGER Atrial Fibrillation Longstanding Persistent (HCC) POTASSIUM, S/P Routine 01/19/2020 11:13 AM PROJECTS MANAGER Atrial Fibrillation Longstanding Persistent (HCC) SODIUM, S/P Routine 01/19/2020 11:13 AM PROJECTS MANAGER Atrial Fibrillation Longstanding Persistent (HCC) CBC WITH DIFFERENTIAL, B Routine 01/19/2020 11:13 AM PROJECTS MANAGER Atrial Fibrillation Longstanding Persistent (HCC) CREATININE WITH EGFR, S/P Routine 01/19/2020 11:13 AM PROJECTS MANAGER Atrial Fibrillation Longstanding Persistent (HCC) DX CHEST AP OR PA AND LATERAL 2 VIEWS RAD - Routine (most inpatients and all outpatients) 01/19/2020 11:09 AM PROJECTS MANAGER Atrial Fibrillation Longstanding Persistent (HCC) HOLTER MONITOR - IN CLINIC CHARGE ENTRY CLERK Routine 10/25/2019 2:21 PM PROJECTS MANAGER Longstanding Persistent Atrial Fibrillation (HCC) ECG Routine 10/19/2019 10:06 AM PROJECTS MANAGER Longstanding Persistent Atrial Fibrillation (HCC) CBC WITH DIFFERENTIAL, B Routine 09/15/2019 8:14 AM CDT Anemia LIPID PANEL, S [...] CDT GRAM STAIN Routine 09/29/2018 4:09 PM PROJECTS MANAGER BACTERIAL CULTURE, AEROBIC + SUSC, RESP Routine 09/29/2018 4:09 PM PROJECTS MANAGER Bronchitis DX RIBS RIGHT 2 VIEWS RAD - Routine (mos t inpatients and all outpatients) 09/15/2018 3:41 PM [...] 06/17/2018 12:37 PM CDT Lesion Skin Chest AK BX SKIN/SUBQ TISS 1ST LESION Routine 06/17/2018 [...] TOES RIGHT 3 VIEWS RAD - Routine (mos t inpatients and all outpatients) 05/03/2018 3:38 PM CDT Swelling Toe MICROSCOPIC MANUAL Routine 01/05/2018 8:18 AM PROJECTS MANAGER URINALYSIS WITH MICROSCOPIC IF INDICATED, U Routine 01/05/2018 8:18 AM PROJECTS MANAGER Dysuria BACTERIAL CULTURE, AEROBIC + SUSC, URINE Routine 01/05/2018 8:18 AM PROJECTS MANAGER Dysuria ECG Routine 12/23/2017 9:55 AM PROJECTS MANAGER Persistent Atrial Fibrillation MICROSCOPIC MANUAL Routine 10/19/2017 8:11 AM PROJECTS MANAGER URINALYSIS WITH MICROSCOPIC IF INDICATED, U Routine 10/19/2017 8:11 AM PROJECTS MANAGER Bleeding Postmenopausal SURGICAL PATHOLOGY Routine 10/06/2017 7:52 AM PROJECTS MANAGER Bleeding Postmenopausal Abnormal Ultrasound Endometrium OBSTETRICS AND GYNECOLOGY OFFICE VISIT (CLINIC) Routine 10/05/2017 6:11 PM PROJECTS MANAGER AK HYSTEROSCOPY DIAGNOSTIC Routine 10/05/2017 9:15 AM PROJECTS MANAGER Bleeding Postmenopausal Abnormal Ultrasound Endometrium (TTE) 2D LIMITED WITH COLOR AND LIMITED DOPPLER Routine 09/23/2017 1:10 PM PROJECTS MANAGER Regurgitation Mitral SURGICAL PATHOLOGY Routine 07/30/2017 11:25 AM CDT US PELVIS TRANSVAGINAL AND TRANSABDOMINAL Routine 07/23/2017 9:26 AM CDT BI BREAST SCREENING BILATERAL Routine 07/15/2017 8:51 AM CDT DX ELBOW LEFT 2 VIEWS Routine 07/09/2017 4:14 PM CDT HX LABORATORY - SCANNED Routine 06/02/2017 12:00 AM CDT HX LABORATORY - SCANNED Routine 06/02/2017 12:00 AM CDT ECG EVENT RECORDER Routine [...] 11:17 AM CDT ECHO TRANSTHORACIC (TTE) Routine 02/25/2017 10:17 AM CDT ECHO TRANSTHORACIC (TTE) Routine 09/17/2016 10:52 AM CDT ECHOCARDIOLOGY IMAGE EXAM Routine 09/17/2016 9:17 AM CDT LYME DISEASE SEROLOGY, S Routine 07/15/2016 4:28 PM CDT AUTOMATED DIFFERENTIAL, B Routine 06/04/2016 2:47 PM CDT CBC WITH DIFFERENTIAL, B Routine 06/04/2016 2:47 PM CDT NT-PRO B-TYPE NATRIURETIC PEPTIDE [...] AM CDT CBC WITH DIFFERENTIAL, B Routine 05/09/2016 9:22 AM CDT BASIC METABOLIC PANEL, S/P Routine 05/09/2016 9:22 AM CDT AUTOMATED DIFFERENTIAL, B Routine 04/21/2016 3:39 PM CDT CBC WITH DIFFERENTIAL, B Routine 04/21/2016 3:39 PM CDT THYROID FUNCTION CASCADE, S Routine 04/21/2016 3:39 PM CDT NT-PRO B-TYPE NATRIURETIC PEPTIDE (BNP), S Routine 04/21/2016 3:39 PM CDT BASIC METABOLIC PANEL, S/P Routine 04/21/2016 3:39 PM CDT ECHOCARDIOLOGY IMAGE EXAM Routine 03/05/2016 11:13 AM CDT ECHO TRANSTHORACIC (TTE) Routine 03/05/2016 11:01 AM CDT PROTIME (PT/INR), POCT, B Routine 01/23/2016 12:32 PM PROJECTS MANAGER AUTOMATED DIFFERENTIAL, B Routine 01/16/2016 3:05 PM PROJECTS MANAGER CBC WITH DIFFERENTIAL, B Routine 01/16/2016 3:05 PM PROJECTS MANAGER PROTIME (PT/INR), POCT, B Routine 01/15/2016 11:59 AM PROJECTS MANAGER CBC WITHOUT DIFFERENTIAL, B Routine 01/10/2016 9:24 AM PROJECTS MANAGER PROTIME (PT/INR), POCT, B Routine 01/08/2016 10:06 AM PROJECTS MANAGER PROTIME (PT/INR), POCT, B Routine 12/25/2015 9:53 AM PROJECTS MANAGER PROTIME (PT/INR), POCT, B Routine 12/25/2015 9:46 AM PROJECTS MANAGER PROTIME (PT/INR), POCT, B Routine 12/11/2015 8:28 AM PROJECTS MANAGER PROTIME (PT/INR), POCT, B Routine 11/27/2015 9:02 AM PROJECTS MANAGER ECG Routine 11/23/2015 1:29 PM PROJECTS MANAGER ECHOCARDIOLOGY IMAGE EXAM Routine 11/23/2015 12:45 PM PROJECTS MANAGER ECHO TRANSESOPHAGEAL (ANISH) Routine 11/23/2015 12:35 PM PROJECTS MANAGER ECG Routine 11/23/2015 12:27 PM PROJECTS MANAGER ACTIVATED PARTIAL THROMBOPLASTIN TIME (APTT), P Routine 11/23/2015 5:21 AM PROJECTS MANAGER PROTHROMBIN TIME (PT), P Routine 11/23/2015 5:21 AM PROJECTS MANAGER ELECTROLYTE (CHEM 4) PANEL, S/P Routine 11/23/2015 5:21 AM PROJECTS MANAGER CBC WITHOUT DIFFERENTIAL, B Routine 11/23/2015 5:21 AM PROJECTS MANAGER ACTIVATED PARTIAL THROMBOPLASTIN TIME (APTT), P Routine 11/23/2015 12:10 AM PROJECTS MANAGER ACTIVATED PARTIAL THROMBOPLASTIN TIME (APTT), P Routine 11/22/2015 5:23 PM PROJECTS MANAGER ACTIVATED PARTIAL THROMBOPLASTIN TIME (APTT), P Routine 11/22/2015 11:53 AM PROJECTS MANAGER PROTHROMBIN TIME (PT), P Routine 11/22/2015 6:38 AM PROJECTS MANAGER ALANINE AMINOTRANSFERASE (ALT), S/P Routine 11/22/2015 6:38 AM PROJECTS MANAGER ASPARTATE AMINOTRANSFERASE (AST), S/P Routine 11/22/2015 6:38 AM PROJECTS MANAGER BILIRUBIN, TOT, S/P Routine 11/22/2015 6:38 AM PROJECTS MANAGER ELECTROLYTE (CHEM 4) PANEL, S/P Routine 11/22/2015 6:38 AM PROJECTS MANAGER BILIRUBIN DIRECT, S/P Routine 11/22/2015 6:38 AM PROJECTS MANAGER ELECTROLYTE (CHEM 4) PANEL, S/P Routine 11/21/2015 12:16 PM PROJECTS MANAGER ECHOCARDIOLOGY IMAGE EXAM Routine 11/21/2015 9:19 AM PROJECTS MANAGER THYROID-STIMULATING HORMONE-SENSITIVE (S-TSH) Routine 11/21/2015 9:04 AM PROJECTS MANAGER ECHO TRANSTHORACIC (TTE) Routine 11/21/2015 8:34 AM PROJECTS MANAGER PROCALCITONIN, S Routine 11/21/2015 2:35 AM PROJECTS MANAGER CARDIAC BIOMARKER PANEL, S Routine 11/21/2015 2:35 AM PROJECTS MANAGER ECG Routine 11/21/2015 2:[address] CHEST ANGIOGRAM AND PULMONARY ARTERIES WITH IV CONTRAST Routine 11/20/2015 9:22 PM PROJECTS MANAGER MICROSCOPIC MANUAL Routine 11/20/2015 7:11 PM PROJECTS MANAGER GRAM'S STAIN, CONFIRMATORY, U Routine 11/20/2015 7:11 PM PROJECTS MANAGER URINALYSIS WITH MICROSCOPIC Routine 11/20/2015 7:11 PM PROJECTS MANAGER DX CHEST AP OR PA AND LATERAL 2 VIEWS Routine 11/20/2015 5:58 PM PROJECTS MANAGER PROTHROMBIN TIME (PT), P Routine 11/20/2015 5:28 PM PROJECTS MANAGER CBC WITH DIFFERENTIAL, B Routine 11/20/2015 5:28 PM PROJECTS MANAGER PH BLOOD GAS Routine 11/20/2015 5:28 PM PROJECTS MANAGER MAGNESIUM, S Routine 11/20/2015 5:28 PM PROJECTS MANAGER BASIC METABOLIC PANEL, S/P Routine 11/20/2015 5:28 PM PROJECTS MANAGER CALCIUM, IONIZED, S/B Routine 11/20/2015 5:28 PM PROJECTS MANAGER LACTATE, POCT, B Routine 11/20/2015 5:20 PM PROJECTS MANAGER ECG Routine 11/20/2015 4:05 PM PROJECTS MANAGER PROTIME (PT/INR), POCT, B Routine 11/20/2015 11:17 AM PROJECTS MANAGER PROTIME (PT/INR), POCT, B Routine 11/06/2015 9:12 AM PROJECTS MANAGER AUTOMATED DIFFERENTIAL, B Routine 11/06/2015 8:35 AM PROJECTS MANAGER CBC WITH DIFFERENTIAL, B Routine 11/06/2015 8:35 AM PROJECTS MANAGER BASIC METABOLIC PANEL, S/P Routine 11/06/2015 8:35 AM PROJECTS MANAGER DX CHEST AP OR PA AND LATERAL 2 VIEWS Routine 11/06/2015 8:07 AM PROJECTS MANAGER PROTIME (PT/INR), POCT, B Routine 10/29/2015 10:51 AM PROJECTS MANAGER AUTOMATED DIFFERENTIAL, B Routine 10/25/2015 3:58 PM PROJECTS MANAGER CBC WITH DIFFERENTIAL, B Routine 10/25/2015 3:58 PM PROJECTS MANAGER BASIC METABOLIC PANEL, S/P Routine 10/25/2015 3:58 PM PROJECTS MANAGER PROTIME (PT/INR), POCT, B Routine 10/24/2015 12:15 PM PROJECTS MANAGER ECHOCARDIOLOGY IMAGE EXAM Routine 10/22/2015 1:02 PM PROJECTS MANAGER ECHO TRANSTHORACIC (TTE) Routine 10/22/2015 12:59 PM PROJECTS MANAGER ECG Routine 10/22/2015 12:28 PM PROJECTS MANAGER DX CHEST AP OR PA AND LATERAL 2 VIEWS Routine 10/22/2015 8:59 AM PROJECTS MANAGER PROTHROMBIN TIME (PT), P Routine 10/22/2015 4:50 AM PROJECTS MANAGER ELECTROLYTE (CHEM 4) PANEL, S/P Routine 10/22/2015 4:50 AM PROJECTS MANAGER CBC WITHOUT DIFFERENTIAL, B Routine 10/22/2015 4:50 AM PROJECTS MANAGER ECG Routine 10/21/2015 8:05 PM PROJECTS MANAGER PROTHROMBIN TIME (PT), P Routine 10/21/2015 12:49 PM PROJECTS MANAGER PROTHROMBIN TIME (PT), P Routine 10/21/2015 8:42 AM PROJECTS MANAGER ELECTROLYTE (CHEM 4) PANEL, S/P Routine 10/21/2015 8:42 AM PROJECTS MANAGER CBC WITHOUT DIFFERENTIAL, B Routine 10/21/2015 8:42 AM PROJECTS MANAGER ECG Routine 10/21/2015 8:17 AM PROJECTS MANAGER ELECTROLYTE (CHEM 4) PANEL, S/P Routine 10/21/2015 6:16 AM PROJECTS MANAGER ACTIVATED PARTIAL THROMBOPLASTIN TIME (APTT), P Routine 10/21/2015 6:16 AM PROJECTS MANAGER CBC WITHOUT DIFFERENTIAL, B Routine 10/21/2015 6:16 AM PROJECTS MANAGER PROTHROMBIN TIME (PT), P Routine 10/21/2015 6:16 AM PROJECTS MANAGER MAGNESIUM, S Routine 10/21/2015 6:16 AM PROJECTS MANAGER ACTIVATED PARTIAL THROMBOPLASTIN TIME (APTT), P Routine 10/20/2015 4:42 AM PROJECTS MANAGER CBC WITHOUT DIFFERENTIAL, B Routine 10/20/2015 4:42 AM PROJECTS MANAGER PROTHROMBIN TIME (PT), P Routine 10/20/2015 4:42 AM PROJECTS MANAGER ELECTROLYTE (CHEM 4) PANEL, S/P Routine 10/20/2015 4:42 AM PROJECTS MANAGER ECG Routine 10/19/2015 7:27 AM PROJECTS MANAGER PROTHROMBIN TIME (PT), P Routine 10/19/2015 12:22 AM PROJECTS MANAGER ACTIVATED PARTIAL THROMBOPLASTIN TIME (APTT), P Routine 10/19/2015 12:22 AM PROJECTS MANAGER ELECTROLYTE (CHEM 4) PANEL, S/P Routine 10/19/2015 12:21 AM PROJECTS MANAGER CBC WITHOUT DIFFERENTIAL, B Routine 10/19/2015 12:21 AM PROJECTS MANAGER ECG Routine 10/18/2015 6:50 PM PROJECTS MANAGER ACTIVATED PARTIAL THROMBOPLASTIN TIME (APTT), P Routine 10/18/2015 5:16 PM PROJECTS MANAGER BASIC METABOLIC PANEL, S/P Routine 10/18/2015 5:10 PM PROJECTS MANAGER ECG Routine 10/18/2015 7:48 AM PROJECTS MANAGER ELECTROLYTE (CHEM 4) PANEL, S/P Routine 10/18/2015 4:38 AM PROJECTS MANAGER CBC WITHOUT DIFFERENTIAL, B Routine 10/18/2015 4:38 AM PROJECTS MANAGER PROTHROMBIN TIME (PT), P Routine 10/18/2015 4:38 AM PROJECTS MANAGER GLUCOSE POCT, B Routine 10/17/2015 12:17 PM PROJECTS MANAGER ECG Routine 10/17/2015 10:52 AM PROJECTS MANAGER GLUCOSE POCT, B Routine 10/17/2015 6:23 AM PROJECTS MANAGER PROTHROMBIN TIME (PT), P Routine 10/17/2015 3:57 AM PROJECTS MANAGER ELPN WITH CREATININE JUNO, P Routine 10/17/2015 3:57 AM PROJECTS MANAGER CBC WITHOUT DIFFERENTIAL, B Routine 10/17/2015 3:57 AM PROJECTS MANAGER GLUCOSE POCT, B Routine 10/16/2015 10:17 PM PROJECTS MANAGER GLUCOSE POCT, B Routine 10/16/2015 5:24 PM PROJECTS MANAGER GLUCOSE POCT, B Routine 10/16/2015 12:09 PM PROJECTS MANAGER GLUCOSE POCT, B Routine 10/16/2015 11:14 AM PROJECTS MANAGER GLUCOSE POCT, B Routine 10/16/2015 10:03 AM PROJECTS MANAGER GLUCOSE POCT, B Routine 10/16/2015 8:57 AM PROJECTS MANAGER GLUCOSE POCT, B Routine 10/16/2015 8:17 AM PROJECTS MANAGER GLUCOSE POCT, B Routine 10/16/2015 7:08 AM PROJECTS MANAGER GLUCOSE POCT, B Routine 10/16/2015 6:19 AM PROJECTS MANAGER DX CHEST PORTABLE 1 VIEW Routine 10/16/2015 5:18 AM PROJECTS MANAGER GLUCOSE POCT, B Routine 10/16/2015 5:03 AM PROJECTS MANAGER GLUCOSE POCT, B Routine 10/16/2015 4:12 AM PROJECTS MANAGER CBC WITHOUT DIFFERENTIAL, B Routine 10/16/2015 3:22 AM PROJECTS MANAGER ABG W/COOX Routine 10/16/2015 3:22 AM PROJECTS MANAGER ELPN WITH CREATININE JUNO, P Routine 10/16/2015 3:22 AM PROJECTS MANAGER PROTHROMBIN TIME (PT), P Routine 10/16/2015 3:22 AM PROJECTS MANAGER ACTIVATED PARTIAL THROMBOPLASTIN TIME (APTT), P Routine 10/16/2015 3:22 AM PROJECTS MANAGER GLUCOSE POCT, B Routine 10/16/2015 3:18 AM PROJECTS MANAGER GLUCOSE POCT, B Routine 10/16/2015 2:06 AM PROJECTS MANAGER GLUCOSE POCT, B Routine 10/16/2015 1:17 AM PROJECTS MANAGER LACTATE, B/P Routine 10/16/2015 12:29 AM PROJECTS MANAGER ABG W/COOX Routine 10/16/2015 12:29 AM PROJECTS MANAGER GLUCOSE POCT, B Routine 10/16/2015 12:28 AM PROJECTS MANAGER GLUCOSE POCT, B Routine 10/15/2015 11:04 PM PROJECTS MANAGER ABG W/COOX Routine 10/15/2015 10:24 PM PROJECTS MANAGER LACTATE, B/P Routine 10/15/2015 10:24 PM PROJECTS MANAGER POTASSIUM, B Routine 10/15/2015 10:24 PM PROJECTS MANAGER GLUCOSE POCT, B Routine 10/15/2015 10:22 PM PROJECTS MANAGER ECG Routine 10/15/2015 8:57 PM PROJECTS MANAGER CALCIUM, IONIZED, S/B Routine 10/15/2015 8:22 PM PROJECTS MANAGER POTASSIUM, B Routine 10/15/2015 8:22 PM PROJECTS MANAGER PH BLOOD GAS Routine 10/15/2015 8:22 PM PROJECTS MANAGER LACTATE, B/P Routine 10/15/2015 8:22 PM PROJECTS MANAGER GLUCOSE POCT, B Routine 10/15/2015 8:12 PM PROJECTS MANAGER ABG W/COOX Routine 10/15/2015 7:16 PM PROJECTS MANAGER GLUCOSE POCT, B Routine 10/15/2015 7:15 PM PROJECTS MANAGER POTASSIUM, B Routine 10/15/2015 6:26 PM PROJECTS MANAGER GLUCOSE POCT, B Routine 10/15/2015 6:25 PM PROJECTS MANAGER ABG W/COOX Routine 10/15/2015 5:10 PM PROJECTS MANAGER GLUCOSE POCT, B Routine 10/15/2015 5:09 PM PROJECTS MANAGER DX CHEST PORTABLE 1 VIEW Routine 10/15/2015 4:16 PM PROJECTS MANAGER POTASSIUM, S/P Routine 10/15/2015 4:11 PM PROJECTS MANAGER GLUCOSE POCT, B Routine 10/15/2015 4:10 PM PROJECTS MANAGER FIBRINOGEN, P Routine 10/15/2015 3:30 PM PROJECTS MANAGER ACTIVATED PARTIAL THROMBOPLASTIN TIME (APTT), P Routine 10/15/2015 3:30 PM PROJECTS MANAGER CBC WITHOUT DIFFERENTIAL, B Routine 10/15/2015 3:30 PM PROJECTS MANAGER ELPN WITH CREATININE JUNO, P Routine 10/15/2015 3:30 PM PROJECTS MANAGER PROTHROMBIN TIME (PT), P Routine 10/15/2015 3:30 PM PROJECTS MANAGER ABG W/COOX Routine 10/15/2015 3:30 PM PROJECTS MANAGER ACT, POCT, B Routine 10/15/2015 3:29 PM PROJECTS MANAGER THROMBOELASTOGRAPH, KAOLIN, B Routine 10/15/2015 3:29 PM PROJECTS MANAGER GLUCOSE POCT, B Routine 10/15/2015 3:27 PM PROJECTS MANAGER SODIUM, S/P Routine 10/15/2015 2:25 PM PROJECTS MANAGER GLUCOSE, WHOLE BLOOD Routine 10/15/2015 2:25 PM PROJECTS MANAGER ABG W/COOX Routine 10/15/2015 2:25 PM PROJECTS MANAGER CALCIUM, IONIZED, S/B Routine 10/15/2015 2:25 PM PROJECTS MANAGER POTASSIUM, B Routine 10/15/2015 2:25 PM PROJECTS MANAGER FIBRINOGEN, P Routine 10/15/2015 2:25 PM PROJECTS MANAGER PROTHROMBIN TIME (PT), P Routine 10/15/2015 2:25 PM PROJECTS MANAGER PLATELETS, B Routine 10/15/2015 2:25 PM PROJECTS MANAGER LACTATE, B/P Routine 10/15/2015 2:25 PM PROJECTS MANAGER PREPARE PLATELETS Routine 10/15/2015 2:03 PM PROJECTS MANAGER PREPARE FRESH FROZEN PLASMA Routine 10/15/2015 1:56 PM PROJECTS MANAGER PLATELETS, B Routine 10/15/2015 1:42 PM PROJECTS MANAGER PROTHROMBIN TIME (PT), P Routine 10/15/2015 1:42 PM PROJECTS MANAGER FIBRINOGEN, P Routine 10/15/2015 1:42 PM PROJECTS MANAGER THROMBOELASTOGRAPH, KAOLIN, B Routine 10/15/2015 1:42 PM PROJECTS MANAGER ACTIVATED PARTIAL THROMBOPLASTIN TIME (APTT), P Routine 10/15/2015 1:42 PM PROJECTS MANAGER CALCIUM, IONIZED, S/B Routine 10/15/2015 1:42 PM PROJECTS MANAGER LACTATE, B/P Routine 10/15/2015 1:42 PM PROJECTS MANAGER GLUCOSE, WHOLE BLOOD Routine 10/15/2015 1:42 PM PROJECTS MANAGER POTASSIUM, B Routine 10/15/2015 1:42 PM PROJECTS MANAGER SODIUM, S/P Routine 10/15/2015 1:42 PM PROJECTS MANAGER ABG W/COOX Routine 10/15/2015 1:42 PM PROJECTS MANAGER ACT, POCT, B Routine 10/15/2015 1:40 PM PROJECTS MANAGER HEMOGLOBIN (HGB), POCT, B Routine 10/15/2015 1:39 PM PROJECTS MANAGER ACT, POCT, B Routine 10/15/2015 1:06 PM PROJECTS MANAGER GLUCOSE POCT, B Routine 10/15/2015 1:05 PM PROJECTS MANAGER HEMOGLOBIN (HGB), POCT, B Routine 10/15/2015 1:05 PM PROJECTS MANAGER ACT, POCT, B Routine 10/15/2015 12:29 PM PROJECTS MANAGER GLUCOSE POCT, B Routine 10/15/2015 12:28 PM PROJECTS MANAGER HEMOGLOBIN (HGB), POCT, B Routine 10/15/2015 12:28 PM PROJECTS MANAGER ACT, POCT, B Routine 10/15/2015 12:03 PM PROJECTS MANAGER GLUCOSE POCT, B Routine 10/15/2015 12:03 PM PROJECTS MANAGER HEMOGLOBIN (HGB), POCT, B Routine 10/15/2015 12:02 PM PROJECTS MANAGER HXGENERAL PATHOLOGY REPORT Routine 10/15/2015 11:34 AM PROJECTS MANAGER ACT, POCT, B Routine 10/15/2015 11:31 AM PROJECTS MANAGER LACTATE, B/P Routine 10/15/2015 11:25 AM PROJECTS MANAGER CALCIUM, IONIZED, S/B Routine 10/15/2015 11:25 AM PROJECTS MANAGER SODIUM, S/P Routine 10/15/2015 11:25 AM PROJECTS MANAGER GLUCOSE, WHOLE BLOOD Routine 10/15/2015 11:25 AM PROJECTS MANAGER POTASSIUM, B Routine 10/15/2015 11:25 AM PROJECTS MANAGER ABG W/COOX Routine 10/15/2015 11:25 AM PROJECTS MANAGER ACT, POCT, B Routine 10/15/2015 10:54 AM PROJECTS MANAGER ACT, POCT, B Routine 10/15/2015 10:18 AM PROJECTS MANAGER HEMOGLOBIN (HGB), POCT, B Routine 10/15/2015 10:17 AM PROJECTS MANAGER ECHO TRANSESOPHAGEAL (ANISH) Routine 10/15/2015 10:05 AM PROJECTS MANAGER HXINTRA-OP AUTO TX Routine 10/15/2015 10:05 AM PROJECTS MANAGER CALCIUM, IONIZED, S/B Routine 10/15/2015 9:26 AM PROJECTS MANAGER POTASSIUM, B Routine 10/15/2015 9:26 AM PROJECTS MANAGER LACTATE, B/P Routine 10/15/2015 9:26 AM PROJECTS MANAGER GLUCOSE, WHOLE BLOOD Routine 10/15/2015 9:26 AM PROJECTS MANAGER ABG W/COOX Routine 10/15/2015 9:26 AM PROJECTS MANAGER SODIUM, S/P Routine 10/15/2015 9:26 AM PROJECTS MANAGER ACT, POCT, B Routine 10/15/2015 9:20 AM PROJECTS MANAGER ANESTHESIOLOGY IMAGE EXAM Routine 10/15/2015 9:09 AM PROJECTS MANAGER ECHOCARDIOLOGY IMAGE EXAM Routine 10/15/2015 7:44 AM PROJECTS MANAGER CARDIOLOGY IMAGE EXAM Routine 10/12/2015 8:45 AM PROJECTS MANAGER CARDIAC CATHETERIZATION Routine 10/12/2015 8:36 AM PROJECTS MANAGER CARDIAC CATHETERIZATION REPORT TEXT Routine 10/12/2015 8:36 AM PROJECTS MANAGER ABORH, RBC Routine 10/12/2015 7:27 AM PROJECTS MANAGER ANTIBODY SCREEN, B Routine 10/12/2015 7:27 AM PROJECTS MANAGER BASIC METABOLIC PANEL (BMP), POCT, B Routine 10/04/2015 11:07 AM PROJECTS MANAGER NT-PRO B-TYPE NATRIURETIC PEPTIDE (BNP), S Routine 10/04/2015 11:07 AM PROJECTS MANAGER ACTIVATED PARTIAL THROMBOPLASTIN TIME (APTT), P Routine 09/23/2015 6:42 AM PROJECTS MANAGER CBC WITHOUT DIFFERENTIAL, B Routine 09/23/2015 6:42 AM PROJECTS MANAGER ELECTROLYTE (CHEM 4) PANEL, S/P Routine 09/23/2015 6:42 AM PROJECTS MANAGER MAGNESIUM, S Routine 09/22/2015 8:31 AM PROJECTS MANAGER ACTIVATED PARTIAL THROMBOPLASTIN TIME (APTT), P Routine 09/22/2015 8:31 AM PROJECTS MANAGER CBC WITHOUT DIFFERENTIAL, B Routine 09/22/2015 8:31 AM PROJECTS MANAGER ACTIVATED PARTIAL THROMBOPLASTIN TIME (APTT), P Routine 09/21/2015 11:25 PM PROJECTS MANAGER MICROSCOPIC MANUAL Routine 09/21/2015 8:50 PM PROJECTS MANAGER GRAM'S ST, U Routine 09/21/2015 8:50 PM PROJECTS MANAGER URINALYSIS WITH MICROSCOPIC Routine 09/21/2015 8:50 PM PROJECTS MANAGER HX MICROBIOLOGY REPORTS Routine 09/21/2015 4:01 PM PROJECTS MANAGER ELECTROLYTE (CHEM 4) PANEL, S/P Routine 09/21/2015 3:52 PM PROJECTS MANAGER MAGNESIUM, S Routine 09/21/2015 3:52 PM PROJECTS MANAGER ACTIVATED PARTIAL THROMBOPLASTIN TIME (APTT), P Routine 09/21/2015 3:52 PM PROJECTS MANAGER HX MICROBIOLOGY REPORTS Routine 09/21/2015 3:52 PM PROJECTS MANAGER THYROID FUNCTION CASCADE, S Routine 09/21/2015 10:36 AM PROJECTS MANAGER PROTHROMBIN TIME (PT), P Routine 09/21/2015 10:36 AM PROJECTS MANAGER CBC WITHOUT DIFFERENTIAL, B Routine 09/21/2015 10:35 AM PROJECTS MANAGER ECG Routine 09/21/2015 10:19 AM PROJECTS MANAGER OUTSIDE DX CHEST Routine 09/21/2015 6:08 AM PROJECTS MANAGER ECHO TRANSTHORACIC (TTE) Routine 09/05/2015 9:57 AM CDT MERCURY, B Routine 09/05/2015 [...] PM CDT CBC WITH DIFFERENTIAL, B Routine 09/03/2015 2:56 PM CDT MERCURY, B Routine 09/03/2015 [...] ECHOCARDIOLOGY IMAGE EXAM Routine 01/06/2013 12:33 PM PROJECTS MANAGER ECHO TRANSTHORACIC (TTE) Routine 01/06/2013 12:26 PM PROJECTS MANAGER URINALYSIS WITH MICROSCOPIC Routine 01/06/2013 9:43 AM PROJECTS MANAGER THYROID-STIMULATING HORMONE-SENSITIVE (S-TSH) Routine 01/06/2013 9:35 AM PROJECTS MANAGER LIPID PANEL, S Routine 01/06/2013 9:35 AM PROJECTS MANAGER BASIC METABOLIC PANEL, S/P Routine 01/06/2013 9:35 AM PROJECTS MANAGER BI BREAST SCREENING BILATERAL Routine 08/11/2011 4:38 PM CDT ECHOCARDIOLOGY IMAGE EXAM Routine 06/12/2011 10:54 AM CDT ECHOCARDIOGRAM Routine 06/12/2011 10:48 AM CDT ECHO TRANSTHORACIC (TTE) Routine 06/12/2011 10:48 AM CDT US PELVIS TRANSVAGINAL AND TRANSABDOMINAL Routine 06/12/2011 9:35 AM CDT THINPREP SCREEN HPV REFLEX Routine 06/09/2011 9:42 AM CDT SURGICAL PATHOLOGY Routine 11/11/2010 4:38 PM PROJECTS MANAGER ECHOCARDIOLOGY IMAGE EXAM Routine 06/13/2010 9:16 AM [...] TRANSVAGINAL AND TRANSABDOMINAL Routine 01/20/2005 9:47 AM PROJECTS MANAGER RADIOLOGY IMAGE EXAM Routine 11/06/2004 2:48 PM PROJECTS MANAGER DX OUTSIDE IMAGE INTERPRETATION Routine 11/04/2004 11:35 AM PROJECTS MANAGER US ABDOMEN LIMITED Routine 11/01/2004 2:08 PM PROJECTS MANAGER US PELVIS TRANSVAGINAL AND TRANSABDOMINAL Routine 11/01/2004 2:08 PM PROJECTS MANAGER ECHOCARDIOGRAM Routine 07/24/2004 9:39 AM CDT Results * DX Chest AP or PA and Lateral 2 Views (08/30/2025 9:16 PM CDT) Only the most recent of11 resultswithin the time period is included. Anatomical [...] us Lewis Merchant P.A.-C. IMG DIAGNOSTIC IMAGING AK OCEDURES Final Result * ECG 12 Lead (08/30/2025 3:55 PM CDT) Only the most recent of48 resultswithin the time period is included. Ventricular Rate ECG/Min 96 BPM MUSE QRSD Interval 150 ms MUSE QT Interval 422 ms MUSE QTC Interval 533 ms MUSE R [place] 224 degrees MUSE T Wave [place] -23 degrees MUSE 08/30/2025 3:55 PM CDT [...] 3:37 PM CDT) Date Time Interrogation Session [id number] [facility] Implantable Pulse Generator T[employer] Tester [facility] Implantable Pulse Generator Type Pacemaker [facility] [employer] [facility] Implantable Pulse Generator Model Aveir LP [id number] [facility] [employer] [facility] Implantable Pulse Generator Serial Number [id number] [facility] Lead Channel Sensing Intrinsic [...] [facility] Ventricular chambers paced during DIGITAL STRATEGY MANAGER pacing. RV [facility] Santy Setting Lower Rate Limit 90 [facility] [place]y Setting Maximum Sensor Rate 120 [facility] [employer] [facility] Anatomical Region Laterality Modality Other 08/30/2025 4:22 PM CDT Impressions 08/30/2025 4:22 PM CDT Encounter Impression: Title: New Device Implanted * New Device (Leadless Aveir VR) Implant Date: 08/30/2025 * Device implanted by Dr. Lozano at [facility] * Programmed parameters were reviewed * [...] * Device implanted by Dr. Lozano at [facility] * Programmed parameters were reviewed * [...] M.S. CV IMPLANTABLE CARDIAC DEVICE Final Result * BMD Bone Density Spine Hips (08/29/2025 [...] Bone Mineral Density (BMD) analysis performed on [place] with serial number [id number]. COMPARISON: Serial Comparisons Left Total Hip results: [...] including images and graphs, is available [facility]. In the absence of other causes [...] Bone Mineral Density (BMD) analysis performed on [place] withserial number [id number]. COMPARISON: Serial Comparisons Left Total Hip results: [...] report, including images and graphs,is available in [facility]. In the absence of other causes of [...] IMG DXA PROCEDU RES Final Result * Thyroid Function [place] (08/24/2025 8:36 AM CDT) Only the most recent of8 resultswithin the time period is included. Pathologist [facility] TSH, Sensitive 2.3 0.3 - 4.2 mIU/L 08/24/2025 9:55 AM CDT DTL Blood (Blood, Venous) 08/24/2025 8:36 AM CDT 08/24/2025 8:55 AM CDT Perry Lozano M.D., M.P.H. LAB BLOOD ADD-ON Fin al Result [facility] [address] [place] [address], [facility] [address] [place] [address] * CBC without Differential (08/24/2025 8:36 AM CDT) Only the most recent of21 resultswithin the time period is included. Pathologist [facility] Hemoglobin 13.3 11.6 - 15.0 g/dL 08/24/2025 [...] M.P.H. LAB BLOOD ADD-ON Fin al Result [facility] [address] [place] [address], [facility] [address] [place] [address] * (ABNORMAL) Basic Metabolic Panel (08/24/2025 8:36 AM CDT) Only the most recent of26 resultswithin the time period is included. Pathologist [facility] Potassium, S 4.0 3.6 - 5.2 mmol/L [...] M.P.H. LAB BLOOD ADD-ON Fin al Result [facility] [address] [place] [address], [facility] [address] [place] [address] * (TTE) 2D ECHO DOPPLER COLOR AND [...] atrial level shunt by color flow imaging. Ohpi-zc-uwejt shunt at atrial level. No intracardiac mass [...] regurgitation , eccentric septally directed jet. 9. Tvie-io-cjrqg shunt at atrial level at the site [...] valve regurgitation , eccentric septallydirected jet. 9. Egnb-li-oszxb shunt at atrial level at the site [...] for atrial level shunt bycolor flow imaging. Orok-yi-nrweb shunt at atrial level. No intracardiacmass or [...] resultswithin the time period is included. Narrative [facility] - 03/29/2025 10:58 AM CDT This order has been created and auto-finalized to support the import of images acquired without order. The clinical documentation to support these images can be found on the encounter that produced images. us Provider Not In System IMG NON RAD IMAGING PROCE DURES Final Result Performing Organization Address [facility] de Phone Number IIMS NA * Perianal Area-Dermatology Image Exam (01/02/2025 12:05 AM PROJECTS MANAGER) Only the most recent of2 resultswithin the time period is included. Narrative [facility] - 01/03/2025 9:02 AM PROJECTS MANAGER This order has been created and auto-finalized to support the import of images acquired without order. The clinical documentation to support these images can be found on the encounter that produced images. us Provider Not In System IMG NON RAD IMAGING PROCE DURES Final Result Performing Organization Address [facility] de Phone Number [facility] NA * Optical Coherence Tomography - Macula/Retina - OU - Both Eyes (12/27/2024 10:40 AM PROJECTS MANAGER) Narrative OPHTHALMOLOGY IMAGING EXAM - 01/02/2025 11:24 AM PROJECTS MANAGER Right Eye Reliability was good. OCT device used was Spectralis . Left Eye Reliability was good. OCT device used was Spectralis . Notes Standard scans - LSA See note for interpretation Sam Manning M.D. OPHTH TOMOGRAPHY Final Result Performing Organization Address [facility] de Phone Number OPHTHALMOLOGY IMAGING EXAM * Automated VF - Extended - OU - Both Eyes (12/27/2024 9:19 AM PROJECTS MANAGER) Narrative OPHTHALMOLOGY IMAGING EXAM - 01/02/2025 11:24 AM PROJECTS MANAGER Right Eye Automated visual field device used was Zeiss. Strategy was AVE. Threshold was 24-2. Eyelid was untaped. Left Eye Automated visual field device used was Zeiss. Strategy was AVE. Threshold was 24-2. Eyelid was untaped. Notes See note for interpretation Sam Manning M.D. OPHTH VISUAL FIELD Fin al Result Performing Organization Address [facility] de Phone Number OPHTHALMOLOGY IMAGING EXAM * Anus 537-Colon And Rectal Surgery Image Exam (12/20/2024 11:15 AM PROJECTS MANAGER) 12/20/2024 11:1 2 AM PROJECTS MANAGER Narrative [facility] - 12/20/2024 11:15 AM PROJECTS MANAGER This order has been created and auto-finalized to support the import of images acquired without order. The clinical documentation to support these images can be found on the encounter that produced images. Provider Not In System IMG NON RAD IMAGING PROCE DURES Final Result Performing Organization Address [facility] de Phone Number [facility]IMS NA * Hand, Right-Physical Medicine And Rehab Image Exam (12/06/2024 9:15 AM PROJECTS MANAGER) Only the most recent of3 resultswithin the time period is included. 12/06/2024 9:12 AM PROJECTS MANAGER Narrative [facility] - 12/06/2024 9:15 AM PROJECTS MANAGER This order has been created and auto-finalized to support the import of images acquired without order. The clinical documentation to support these images can be found on the encounter that produced images. us Provider Not In System IMG NON RAD IMAGING PROCE DURES Final Result Performing Organization Address [facility] de Phone Number [facility]S NA * Magnesium (12/06/2024 7:49 AM PROJECTS MANAGER) Only the most recent of12 resultswithin the time period is included. Magnesium, S 2.1 1.7 - 2.3 mg/dL 12/06/2024 9:18 AM PROJECTS MANAGER DTL Blood (Blood, Venous) 12/06/2024 7:49 AM PROJECTS MANAGER 12/06/2024 9:00 AM PROJECTS MANAGER us Danae Pyle P.A.-C. LAB BLOOD ADD-ON Final Resu lt [facility] [address] [place] [address], [place] DTL [facility] [address] [place] [address] * (ABNORMAL) CBC with Differential, Blood (12/05/2024 6:30 AM PROJECTS MANAGER) Only the most recent of17 resultswithin the time period is included. Hemoglobin 12.1 11.6 - 15.0 g/dL 12/05/2024 7:21 AM PROJECTS MANAGER DTL Hematocrit 35.5 35.5 - 44.9 % 12/05/2024 7:21 AM PROJECTS MANAGER DTL Erythrocytes 3.83(L) 3.92 - 5.13 x10(12)/L 12/05/2024 7:21 AM PROJECTS MANAGER DTL MCV 92.7 78.2 - 97.9 fL 12/05/2024 7:21 AM PROJECTS MANAGER DTL RBC Distrib Width 14.4 12.2 - 16.1 % 12/05/2024 7:21 AM PROJECTS MANAGER DTL Platelet Count 216 157 - 371 x10(9)/L 12/05/2024 7:21 AM PROJECTS MANAGER DTL Leukocytes 5.5 3.4 - 9.6 x10(9)/L 12/05/2024 7:21 AM PROJECTS MANAGER DTL Neutrophils 3.48 1.56 - 6.45 x10(9)/L 12/05/2024 7:21 AM PROJECTS MANAGER DHPM Lymphocytes 0.97 0.95 - 3.07 x10(9)/L 12/05/2024 7:21 AM PROJECTS MANAGER DTL Monocytes 0.74 0.26 - 0.81 x10(9)/L 12/05/2024 7:21 AM PROJECTS MANAGER DTL Eosinophils 0.23 0.03 - 0.48 x10(9)/L 12/05/2024 7:21 AM PROJECTS MANAGER DTL Basophils 0.04 0.01 - 0.08 x10(9)/L 12/05/2024 7:21 AM PROJECTS MANAGER DTL Blood (Blood, Venous) 12/05/2024 6:30 AM PROJECTS MANAGER 12/05/2024 7:01 AM PROJECTS MANAGER us Lexie Eldridge APRN, C.N.P. LAB BLOOD ADD-ON Final Result Performing Organization Address [facility] de Phone Number [facility] [address] [place] [address], [facility] [address] [place] [address] [facility] [address] [place] [address] * Hand-Cardiology Encounter Image Exam (12/03/2024 9:55 AM PROJECTS MANAGER) Only the most recent of2 resultswithin the time period is included. 12/03/2024 9:54 AM PROJECTS MANAGER Narrative [facility] - 12/03/2024 9:57 AM PROJECTS MANAGER This order has been created and auto-finalized to support the import of images acquired without order. The clinical documentation to support these images can be found on the encounter that produced images. us Provider Not In System IMG NON RAD IMAGING PROCE DURES Final Result Performing Organization Address [facility] de Phone Number [facility]S NA * Bacterial Culture, Aerobic + Susceptibility (12/02/2024 6:24 PM PROJECTS MANAGER) Only the most recent of2 resultswithin the time period is included. Bacterial Culture, Aerobic + Susc No growth after 5 days of incubation. 12/07/2024 7:41 AM PROJECTS MANAGER DTL Drainage (Hand, Right) 12/02/2024 6:24 PM PROJECTS MANAGER 12/02/2024 8:03 PM PROJECTS MANAGER Comment:Specimen Source Site : TISSUE us Gisela Hanna M.D. LAB MICROBIOLOGY - GENERA L ORDERABLES Final Result Performing Organization Address [facility] de Phone Number [facility] [address] [place] [address], [facility] [address] [place] [address] * Gram Stain (12/02/2024 6:24 PM PROJECTS MANAGER) Only the most recent of3 resultswithin the time period is included. Gram Stain No organisms seen. 12/03/2024 1:40 AM PROJECTS MANAGER DTL Drainage (Hand, Right) 12/02/2024 6:24 PM PROJECTS MANAGER 12/02/2024 8:03 PM PROJECTS MANAGER Comment:Specimen Source Site : TISSUE Gisela Hanna M.D. LAB MICROBIOLOGY - GENERA L ORDERABLES Final Result Performing Organization Address City/[facility]/[place] [address] * Bacterial Culture, Anaerobic + Susceptibility (12/02/2024 6:24 PM PROJECTS MANAGER) Bacterial Culture, Anaerobic + Susc No growth after 14 days of incubation. 12/16/2024 8:29 AM PROJECTS MANAGER DTL Drainage (Hand, Right) 12/02/2024 6:24 PM PROJECTS MANAGER 12/02/2024 8:03 PM PROJECTS MANAGER Comment:Specimen Source Site : TISSUE Gisela Hanna M.D. LAB MICROBIOLOGY - GENERA L ORDERABLES Final Result Performing Organization Address City/[facility]/ZIP Co de Phone Number [facility] [address] [place] [address] * CT Hand Right without and with IV Contrast (12/02/2024 12:46 PM PROJECTS MANAGER) Anatomical Region Laterality Modality Upper Extremity, Hand, Muscu loskeletal RST LOS, Musculoskeletal ARZ LOS, Muskuloskeletal FLA LOS Right Computed Tomography, Compute d Tomography Impressions 12/02/2024 3:04 PM PROJECTS MANAGER As noted on the same day ultrasound, [...] Findings were discussed with Lexie Eldridge CNP ([phone]) at 2:00 PM on 12/02/2024. Narrative 12/02/2024 3:04 PM PROJECTS MANAGER EXAM: CT HAND RIGHT WITHOUT AND WITH [...] 13, images 386, 411 and 427 and , image [id number]). This area measures approximately 0.7 cm AP by 1.5 cm TR by 3.3 cm SI. As seen on the ultrasound, the fluid and edema overlies the extensortendons without definite evidence of fluid in the tendon sheaths. However,the ultrasound demonstrated marked hyperemia of the tendon sheaths whichlikely represents reactive tenosynovitis related to the overlying process. Findings were discussed with Lexie Eldridge CNP ([phone]) at2:00 PM on 12/02/2024. us Lexie Eldridge APRN, C.N.P. IMG CT PRO CEDURES Final Result * RAD US Musculoskeletal Hand Right (12/02/2024 8:55 AM PROJECTS MANAGER) Anatomical Region Laterality Modality Hand, Ultrasound RST LOS, Mu sculoskeletal ARZ LOS, Ultrasound ARZ LOS, Muskuloskeletal FLA LOS Right Ultrasound Impressions 12/02/2024 9:13 AM PROJECTS MANAGER 1. Cellulitis right dorsal hand, possibly by a gas-forming organism with echogenic foci present throughout the inflamed soft tissues. 2. Tenosynovitis right dorsal extensor compartment IV Results called to Lexie Eldridge APRN, NEELAM at 9:10 am on December 02, 2024 Narrative 12/02/2024 9:13 AM PROJECTS MANAGER EXAM: RAD US MUSCULOSKELETAL HAND RIGHT COMPARISON: [...] IV Results called to Lexie Eldridge APRN, CUSHION WORKER at 9:10 am on 2024 Mike Wilson P.A.-C. IMG US PROCEDURES Final Result * Hand-Internal Medicine Image Exam (12/02/2024 8:00 AM PROJECTS MANAGER) Only the most recent of2 resultswithin the time period is included. 12/02/2024 8:00 AM PROJECTS MANAGER Narrative [facility] - 12/02/2024 8:03 AM PROJECTS MANAGER This order has been created and auto-finalized to support the import of images acquired without order. The clinical documentation to support these images can be found on the encounter that produced images. Provider Not In System IMG NON RAD IMAGING PROCE DURES Final Result Performing Organization Address City/[facility]/ZIP Co de Phone Number [facility] NA * (ABNORMAL) Staph aureus / MRSA, Nasal, PCR (12/01/2024 11:58 AM PROJECTS MANAGER) Staphylococcus aureus, PCR Positive(A) Negative 12/01/2024 5:29 PM PROJECTS MANAGER DTL MRSA, PCR Negative Negative 12/01/2024 5:29 PM PROJECTS MANAGER DTL Comment: Methicillin (oxacillin)-susceptible Staphylococcus aureus complex detected. Swab (Nares) 12/01/2024 11:5 8 AM PROJECTS MANAGER 12/01/2024 12:42 PM PROJECTS MANAGER Cesar Thurman M.D. LAB MICROBIOLOGY - GEN ERAL ORDERABLES Final Result [facility] [address] [place] [address], [facility] DTL [facility] [address] [place] [address] * Bacteria / Marilyn Culture, Blood #2 (12/01/2024 11:06 AM PROJECTS MANAGER) Only the most recent of2 resultswithin the time period is included. Bacteria/Jennifer da Culture, Blood No growth after 5 days of incubation. 12/06/2024 12:02 PM PROJECTS MANAGER DTL Blood (Blood, Peripheral Draw) 12/01/2024 11:06 AM PROJECTS MANAGER 12/01/2024 11:35 AM PROJECTS MANAGER Comment:Specimen Source Site : Blood Mike Wilson P.A.-C. LAB MICROBIOLOGY - GENE RAL ORDERABLES Final Result [facility] [address] [place] [address], [facility] [address] [place] [address] * MR Brain without and with IV Contrast (12/01/2024 8:49 AM PROJECTS MANAGER) Anatomical Region Laterality Modality Head, Brain, Neuroradiology RST LOS, Neuroradiology ARZ LOS, Neuroradiology FLA LOS N/A Magnetic Resonance Impressions 12/01/2024 9:27 AM PROJECTS MANAGER 1. No acute intracranial findings. Specifically, no evidence of recent infarct. 2. 8 x 6 mm presumed meningioma along the posterior falx, as described. Additional 5 mm presumed calcified meningioma along the inferior left frontal lobe. Narrative 12/01/2024 9:27 AM PROJECTS MANAGER EXAM: MR BRAIN WITHOUT AND WITH IV [...] inferior leftfrontal lobe. us Mike Wilson P.A.-C. IM MRI PROCEDURES Brii baez Result * CT Head without IV Contrast (11/30/2024 4:20 PM PROJECTS MANAGER) Anatomical Region Laterality Modality Head, Neuroradiology RST LOS , Neuroradiology ARZ LOS, Neuroradiology FLA LOS N/A Computed Tomography, Compute d Tomography 11/30/2024 3:46 PM PROJECTS MANAGER Impressions 11/30/2024 4:48 PM PROJECTS MANAGER 1. No currently evident acute infarct or acute intracranial hemorrhage. 2. No high-grade arterial stenosis is demonstrated. Narrative 11/30/2024 4:48 PM PROJECTS MANAGER EXAM: CT HEAD WITHOUT IV CONTRAST, CT [...] arterial stenosis is demonstrated. Mike Wilson P.A.-C. [facility] PROCEDURES Final Result * CT Head Neck Angiogram with IV Contrast (11/30/2024 4:20 PM PROJECTS MANAGER) Anatomical Region Laterality Modality Head and Neck, Neuroradiolog y RST LOS, Neuroradiology ARZ [facility], [facility]ad[facility] N/A Computed Tomography, Compute d Tomography 11/30/2024 3:46 PM PROJECTS MANAGER Impressions 11/30/2024 4:48 PM PROJECTS MANAGER 1. No currently evident acute infarct or acute intracranial hemorrhage. 2. No high-grade arterial stenosis is demonstrated. Narrative 11/30/2024 4:48 PM PROJECTS MANAGER EXAM: CT HEAD WITHOUT IV CONTRAST, CT [...] arterial stenosis is demonstrated. Mike Wilson P.A.-C. IMG CT PROCEDURES Final Result * US Upper Extremity Arteries Left (11/29/2024 4:34 PM PROJECTS MANAGER) Anatomical Region Laterality Modality Upper Extremity, Ultrasound RST LOS, Ultrasound ARZ LOS, Ultrasound FLA LOS, Procedural, Vascular Interventional NWWI LOS Left Ultrasound Impressions 11/29/2024 5:05 PM PROJECTS MANAGER 1. Patent arterial vessels. 2. Heterogenous collection in the soft tissues of the left forearm most consistent with a hematoma. No appreciable internal vascularity or connection to the adjacent ulnar or radial arteries to suggest a pseudoaneurysm. Narrative 11/29/2024 5:05 PM PROJECTS MANAGER EXAM: US UPPER EXTREMITY ARTERIES LEFT Exam [...] to suggest apseudoaneurysm. us Wilfred Courtney P.A.-C. IM US PROCEDURES Brii sasha Result * PULSED FIELD ABLATION, ABLATION PVI, CARTO, ABLATION - ATRIAL FLUTTER - RIGHT, ABLATION - CS (11/29/2024 12:44 PM PROJECTS MANAGER) Anatomical Region Laterality Modality X-Ray Angiograph y 11/29/2024 9:03 AM PROJECTS MANAGER Narrative 11/29/2024 4:01 PM PROJECTS MANAGER For the complete report, see the Order-Level [...] Following administration of local anesthetic, two 8 Algerian sheaths were inserted in the left femoral vein and a 8 Algerian and 8 Algerian sheath was inserted in the right femoral vein. One of the 8 Algerian venous entry sites was pre closed. A [...] into the coronary sinus. The right 8 Algerian sheaths was exchanged for a Faradrive sheath after dilatation of the venous entry site. Transseptal puncture was performed using ICE and fluoroscopic guidance with the aid hemodynamic measurement using the [employer]cross system. We then were able to advance [...] removed. The Perclose suture was tightened. The [id number] suture tie was created around the Faradrive [...] (Activated Clotting Time), POCT (11/29/2024 12:25 PM PROJECTS MANAGER) Only the most recent of16 resultswithin the time period is included. Activated Clotting Time, POCT 129 84 - 139 sec 11/29/2024 12:31 PM PROJECTS MANAGER PCSM Blood 11/29/2024 12:2 5 PM PROJECTS MANAGER 11/29/2024 12:31 PM PROJECTS MANAGER us Unknown Provider LAB POCT ORDERABLES - DEVICE Fi nal Result POC [facility] [address] [place] [address], [facility] PCSM [facility] POC [address] [place] [address] * LDA ANE ENDOTRACHEAL AIRWAY (11/29/2024 8:42 AM PROJECTS MANAGER) Narrative Robbie Miramontes APRN, CRNA, DNAP - 11/29/2024 8:42 AM PROJECTS MANAGER Robbie Miramontes APRN, CRNA, DNAP 11/29/2024 9:05 AM Airway Date/Time: 11/29/2024 [...] Procedure outcome: successful Notable Events: no complications us Robbie F Banzon SENIOR EDUCATION SPECIALIST, BURNER HAND, DNAP ANESTHESIA ORDER BOO Final Result * Type and Screen (with Reflex Antibody ID) (11/28/2024 1:17 PM PROJECTS MANAGER) [facility] ABORh A Neg Not applicable 11/28/2024 5:25 PM PROJECTS MANAGER ETRM Antibody Screen Negative Negative 11/28/2024 5:36 PM PROJECTS MANAGER ETRM Type & Screen Expiration 01/26/2025 23:59 11/28/2024 5:25 PM PROJECTS MANAGER ETRM Testing Location [place] DEFAULT 11/28/2024 1:58 PM PROJECTS MANAGER ETRM Blood (Blood, Venous) 11/28/2024 1:17 PM PROJECTS MANAGER 11/28/2024 1:58 PM PROJECTS MANAGER Perry Lozano M.D., M.P.H. LAB BLOOD BANK TEST ORDERABLES Final Result [facility] [address] [place] [address], [facility] ETRM [facility] [address] [place] [address] * (ABNORMAL) Comprehensive Metabolic Panel (11/28/2024 1:17 PM PROJECTS MANAGER) Only the most recent of2 resultswithin the time period is included. [facility] Potassium, S 3.9 3.6 - 5.2 mmol/L 11/28/2024 2:10 PM PROJECTS MANAGER DTL Sodium, S 139 135 - 145 mmol/L 11/28/2024 2:10 PM PROJECTS MANAGER DTL Chloride, S 101 98 - 107 mmol/L 11/28/2024 2:10 PM PROJECTS MANAGER DTL Bicarbonate, S 28 22 - 29 mmol/L 11/28/2024 2:10 PM PROJECTS MANAGER DTL Anion Gap 10 7 - 15 11/28/2024 2:10 PM PROJECTS MANAGER DTL BUN (Blood Urea Nitrogen), S 19 6 - 21 mg/dL 11/28/2024 2:10 PM PROJECTS MANAGER DTL Creatinine 0.86 0.59 - 1.04 mg/dL 11/28/2024 2:10 PM PROJECTS MANAGER DTL Estimated GFR (eGFR) 70 >=60 mL/min/BS A 11/28/2024 2:10 PM PROJECTS MANAGER DTL Comment: Estimated GFR calculated using the 2020 CKD_EPI creatinine equation. Calcium, Total, S 8.9 8.8 - 10.2 mg/dL 11/28/2024 2:10 PM PROJECTS MANAGER DTL Glucose, S 142(H) 70 - 140 mg/dL 11/28/2024 2:10 PM PROJECTS MANAGER DTL Protein, Total, S 7.0 6.3 - 7.9 g/dL 11/28/2024 2:10 PM PROJECTS MANAGER DTL Albumin, S 4.1 3.5 - 5.0 g/dL 11/28/2024 2:10 PM PROJECTS MANAGER DTL Aspartate Aminotransferase (AST), S 23 8 - 43 U/L 11/28/2024 2:10 PM PROJECTS MANAGER DTL Alkaline Phosphatase, S 61 35 - 104 U/L 11/28/2024 2:10 PM PROJECTS MANAGER DTL Alanine Aminotransferase (ALT), S 29 7 - 45 U/L 11/28/2024 2:10 PM PROJECTS MANAGER DTL Bilirubin, Total, S 0.4 0.0 - 1.2 mg/dL 11/28/2024 2:10 PM PROJECTS MANAGER DTL Blood (Blood, Venous) 11/28/2024 1:17 PM PROJECTS MANAGER 11/28/2024 1:54 PM PROJECTS MANAGER Perry Lozano M.D., M.P.H. LAB BLOOD ADD-ON Fin al Result [facility] [address] [place] [address], [facility] [address] [place] [address] * CT Cardiac Pulmonary Veins with IV (11/28/2024 10:09 AM PROJECTS MANAGER) Anatomical Region Laterality Modality Cardiac, Cardiovascular RST LOS, Thoracic ARZ LOS, Cardiovascular FLA LOS N/A Computed Tomography, Compute d Tomography 11/28/2024 10:0 6 AM PROJECTS MANAGER Impressions 11/28/2024 12:48 PM PROJECTS MANAGER Typical pulmonary venous return to the left atrium with 2 right and 2 left pulmonary veins. There is no pulmonary vein stenosis. Postoperative changes left atrial appendage amputation. Narrative 11/28/2024 12:48 PM PROJECTS MANAGER EXAM: CT CARDIAC PULMONARY VEINS WITH IV [...] vein stenosis. Postoperativechanges left atrial appendage amputation. us Perry Lozano M.D., M.P.H. IMG CT PROCEDURES Fi nal Result * (TTE) 2D ECHO DOPPLER COLOR (08/17/2024 10:48 AM CDT) Pathologist [facility] Ejection Fraction 57 MC CV EIMS Sinus [...] mean Doppler gradient 2 mmHg Mild (possibly lizg-bb-xjazvpti) regurgitation. 4. Mild-moderately enlarged right ventricular chamber [...] mean Doppler gradient 2 mmHg Mild (possibly ghrd-kz-lcuuiwtg)regurgitation. 4. Mild-moderately enlarged right ventricular chamber size, [...] Findings Transthoracic outreach echo interpretation. Echocardiogram performed [facility] ventricular function protocol. Last full echocardiogram [id number]/12/2023. LEFT VENTRICLE:Borderline enlarged left ventricular chamber size.Calculated [...] device or positional therapy. Clinical correlation recommended. us Abhinav Todd M.D. SLEEP CENTER ORDERABLES Final Result ONBASE NA * PUL Home Overnight Oximetry (04/26/2024 6:45 AM CDT) 04/26/2024 Impressions [facility] - 04/26/2024 2:28 PM CDT The study was performed at an outside [facility] and interpreted at [facility]. Overnight oximetry was performed with the patient utilizing no supplemental oxygen or assisted breathing device. Sleep was reported to be the same as usual with no sedative medication taken. Mean saturation was near 93% with the overall profile maintained near or above 90%. Clinical interpretation: Within normal limits. Note prolonged disconnect artifact. Physician: lAo Hood M.D. [id number] Narrative Procedure Note Alo Hood M.D. - 04/26/2024 IMPRESSION: The study was performed at an outside [facility] andinterpreted at [facility]. Overnight oximetry was performedwith the patient utilizing no supplemental oxygen or assisted breathingdevice. Sleep was reported to be the same as usual with no sedative medication taken. Mean saturation wasnear 93% with the overall profile maintained near or above 90%. Clinical interpretation: Within normal limits. Note prolonged disconnectartifact. Physician: Alo Hood M.D. [id number] us Jay Neves M.D. PFT ORDERABLES Final Result SHERMAN KEDAR EAP * CARDIOVERSION EXTERNAL (04/22/2024 3:03 PM CDT) [...] criteria reviewed. - Responsible adult along. - Freight Associate verification completed. CARDIOVERSION INTRA-PROCEDURE - BURNER HAND/Anesthesiologist present. See anesthesia record. - Emergency equipment [...] on thromboembolic risk as determined by the [id number] Score. For the complete report, see the [...] criteria reviewed. - Responsible adult along. - Freight Associate verification completed. CARDIOVERSION INTRA-PROCEDURE - BURNER HAND/Anesthesiologist present. See anesthesia record. - Emergency equipment [...] based on thromboembolic risk as determined bythe [id number] Score. For the complete report, see the Order-Level Documents. us Jennifer Resendez P.A.-C., M.P.H. CV CARDIAC SERVICES PROCEDURES Final Result CV IVIEW NA * (ANISH) 2D WITH [...] and the findings as documented in the assembler surgical garment and also performed a pertinent examination including [...] performed at the request of the primary neon sign servicer. Adult probe inserted without difficulty. 3D imaging [...] Agitated saline injection(s) performed during sedation. No mndpp-pu-uusm shunt at atrial level at rest or [...] Sedation Narrator or other pertinent record in [facility] for additional procedure and sedation information. Physician [...] and the findings as documented in the assembler surgical garment and alsoperformed a pertinent examination including a heart, airway and lungassessment. Mallampati Assessment: As documented in the RN pre-procedureassessment. Sedation plan: Transesophageal echo - moderate sedation. ASAphysical status score: Class II. The patient's identity and all neededequipment were confirmed and a final confirmatory pause was performed bythe team immediately prior to start. PROCEDURAL ECHO FINDINGS:Transesophageal echocardiogram performed at the request of the primaryservice rehabilitation consultant. Adult probe inserted without difficulty. 3D [...] cava. Agitated saline injection(s) performed during sedation. Ffvlpta-us-sqri shunt at atrial level at rest or [...] Sedation Narrator or other pertinent record in [facility] foradditional procedure and sedation information. Physician signature [...] Findings Transthoracic outreach echo interpretation. Echocardiogram performed [facility] ventricular function protocol. Last full echocardiogram [id number]/12/2023. Status post [employer] mitral valve annuloplasty(15-OCT-2015). Status [...] esult * HOLTER MONITOR - IN CLINIC CHARGE ENTRY CLERK (03/10/2024 10:15 PM CDT) Only the most [...] AF Duration 0 duration INFOBIONIC MOME AF Orwell 0 percent INFOBIONIC MOME Symptom Count 0 count INFOBIONIC MOME 03/09/2024 8:41 AM CDT Narrative INFOBIONIC MOME - 03/21/2024 7:33 AM CDT [place] 1. The basic rhythm was sinus rhythm [...] 5%. 4. No symptomatic events were noted. Chess Instructor: MONALISA Faye / Jessica Sumner Procedure Note Morales Henson M.D. - 03/21/2024 [place] 1. The basic rhythm was sinus rhythm [...] 5%. 4. No symptomatic events were noted. Chess Instructor: MONALISA Faye / Jessica Sumner Jorge Ordaz M.D. CV CARDIAC SERVICES PROCED URES Final Result RAPHAEL BIANCHI NA * Dermatopathology (02/12/2024 12:16 PM CDT) 02/15/2024 4:57 PM CDT MKTO Report Electronically Signed By Diego Ca M.D. I verify that I have examined all relevant slides/materi als for the specimen(s) and rendered or confirmed the diagnosis. 02/15/2024 4:57 PM CDT MKTO Gross Description A: Submitted as skin, right malar cheek is a shaved 0.6 cm oval of light solorio skin. Inked, sectioned. ESB, one block. B: Submitted as skin, left buccal cheek is a 0.7 cm oval shave of solorio macule. Inked, sectioned. ESB, one block. EAE:pp [...] Buccal Cheek) 02/12/2024 12:19 PM CDT us hCristina Pyle M.D. LAB PATH DERM ORDERABLES Final Result [facility] [address] [place] [address], [facility] MKTO [address] [facility] [address] [place] [address] * DX Ribs Bilateral 4 Views with Chest Posteroanterior 1 View (11/20/2023 3:58 PM PROJECTS MANAGER) Anatomical Region Laterality Modality Ribs, Chest, Musculoskeletal RST LOS, Musculoskeletal ARZ LOS, Muskuloskeletal FLA LOS Bilateral Digital Radiography Impressions 11/20/2023 4:47 PM PROJECTS MANAGER No significant change from 01/17/2021. Diffuse demineralization slightly limits evaluation for fracture. Within these limitations no definite rib fracture identified. Sternotomy with mediastinal clips and postoperative changes of mitral and tricuspid valvuloplasty. Stable mild enlargement of the cardiac silhouette. 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 Narrative 11/20/2023 4:47 PM PROJECTS MANAGER EXAM: DX RIBS BILATERAL 4 VIEWS WITH [...] Thoracolumbar curvature with degenerative changes of thespine. us Jay Neves M.D. IMG DIAGNOSTIC IMAGING PROCEDURES Final Result * Vitamin D, Immunoassay, Total, Serum (11/20/2023 3:07 PM PROJECTS MANAGER) Vitamin D, Immunoassay, Total, S 33 20 - 80 ng/mL 11/20/2023 8:12 PM PROJECTS MANAGER MKTO Comment: Optimum levels within the healthy population are 20-50, patients with bone disease may benefit from high levels within this range Blood (Blood, Venous) 11/20/2023 3:07 PM PROJECTS MANAGER 11/20/2023 7:16 PM PROJECTS MANAGER Jay Neves M.D. LAB BLOOD ADD-O N Final Result Performing Organization Address [facility] Co de Phone Number [facility] [address] [place] [address], [facility] MKTO [facility] [place] [address] [place] [address] * Calcium, Total (11/20/2023 3:07 PM PROJECTS MANAGER) Calcium, Total, P 9.4 8.8 - 10.2 mg/dL 11/20/2023 6:00 PM PROJECTS MANAGER OWAT Blood (Blood, Venous) 11/20/2023 3:07 PM PROJECTS MANAGER 11/20/2023 5:49 PM PROJECTS MANAGER Jay Neves M.D. LAB BLOOD ADD-O N Final Result Performing Organization Address [facility] Co de Phone Number [facility] [address] [place] [address], [facility] OWAT [facility] [place] [address] [place] [address] * BI Breast Screening Bilateral with Tomosynthesis (10/20/2023 2:21 PM PROJECTS MANAGER) Only the most recent of3 resultswithin the time period is included. Anatomical Region Laterality Modality Breast, Breast Imaging RST L OS, Breast Imaging ARZ LOS, Breast Imaging FLA LOS Bilateral Mammography 10/20/2023 2:29 PM PROJECTS MANAGER Impressions 10/20/2023 2:33 PM PROJECTS MANAGER Negative. RECOMMENDATION: Annual Screening Mammogram ASSESSMENT: BI-RADS: 1: Negative. Narrative 10/20/2023 2:33 PM PROJECTS MANAGER EXAM: BI BREAST SCREENING BILATERAL WITH TOMOSYNTHESIS [...] ASSESSMENT: BI-RADS: 1: Negative. Jay Neves M.D. IMG BI PROCEDUR ES Final Result * Lyme Ab Modified 2-Tier w/Reflex, Serum (09/18/2023 12:51 PM CDT) Lyme Ab Modified 2-Tier w/Reflex, S Negative Negative 09/21/2023 3:47 AM PROJECTS MANAGER WSCA Comment: Negative for antibodies to the Borrelia (Borreliella) species causing Lyme disease. Negative results may occur in recently infected (<=14 days) patients. If recent infection is suspected, repeat testing on a new sample collected in 7-14 days is recommended. Blood (Blood, Venous) 09/18/2023 12:51 PM CDT 09/19/2023 3:58 PM CDT Sadaf Pierre P.A.-C. LAB MICROBIOLOGY - BLOOD OR DERABLES Final Result [facility] [address] [place] [address], [facility] WSCA [facility] [place] [address] [place] [address] * Babesia, PCR, Parasitemia Reflex (09/18/2023 12:51 PM CDT) Babesia microti Negative Negative 3 7:33 PM CDT DTL Babesia duncani Negative Negative 3 7:33 PM CDT DTL Babesia divergens/MO-1 Negative Negative 09/19/2023 7:33 PM CDT DTL Comment: ----ADDITIONAL INFORMATION---- This test was developed and its performance characteristics determined by [facility] in a manner consistent with CLIA requirements. This test has not been cleared or approved by the U.S. Food and Drug Administration. Blood (Blood, Venous) 09/18/2023 12:51 PM CDT 09/18/2023 10:22 PM CDT Sadaf Pierre P.A.-C. LAB MICROBIOLOGY - BLOOD OR DERABLES Final Result Performing Organization Address [facility] Co de Phone Number [facility] [address] [place] [address], [facility] DT [address] [address] * Borrelia miyamotoi Detection PCR, Blood (09/18/2023 12:51 PM CDT) B. miyamotoi PCR, B Negative Negative 09/19 7:33 PM CDT DTL Comment: ----ADDITIONAL INFORMATION---- This test was developed and its performance characteristics determined by [facility] in a manner consistent with CLIA requirements. This test has not been cleared or approved by the U.S. Food and Drug Administration. Blood (Blood, Peripheral Draw) 09/18/2023 12:51 PM CDT 09/18/2023 10:22 PM CDT Sadaf Pierre P.A.-C. LAB MICROBIOLOGY - BLOOD OR DERABLES Final Result Performing Organization Address [facility]/ZIP Co de Phone Number [facility] [address] [place], [place] [address] DTL [address] [address] * Ehrlichia/Anaplasma PCR, Blood (09/18/2023 12:51 PM CDT) Pathologist [facility] Anaplasma phagocytophilum Negative Negative 09/19/2023 7:34 PM CDT DTL Ehrlichia chaffeensis Negative Negative 09/19/2023 7:34 PM CDT DTL Ehrlichia ewingii/canis Negative Negative 09/19/2023 7:34 PM CDT DTL Ehrlichia muris eauclairensis Negative Negative 09/19/2023 7:34 PM CDT DTL Comment: ----ADDITIONAL INFORMATION---- This test was developed and its performance characteristics determined by [facility] in a manner consistent with CLIA requirements. This test has not been cleared or approved by the U.S. Food and Drug Administration. Blood (Blood, Venous) 09/18/2023 12:51 PM CDT 09/18/2023 10:22 PM CDT Sadaf Pierre P.A.-C. LAB MICROBIOLOGY - BLOOD OR DERABLES Final Result [facility] - [address] [address] [address] [address] * (TTE) 2D ECHO DOPPLER COLOR (05/27/2023 10:27 AM CDT) Pathologist [facility] Ejection Fraction 54 MC CV EIMS Sinus [...] (15-OCT-2015). Diastolic mean Doppler gradient 2 mmHg. Umth-vr-rldnubqn tricuspid regurgitation. 4. Mild-moderately enlarged right ventricular [...] annuloplasty (15-OCT-2015).Diastolic mean Doppler gradient 2 mmHg. Meti-ns-tfdctfnm tricuspidregurgitation. 4. Mild-moderately enlarged right ventricular chamber size, borderlinereduced systolic function, estimated right ventricular systolic [id number] mmHg (right atrial pressure of 10 mmHg). [...] - 145 mmol/L 02/26/2023 6:31 PM CDT OWAT Blood (Blood, Venous) 02/26/2023 4:20 PM CDT 02/26/2023 6:03 PM CDT Jorge Ordaz M.D. LAB BLOOD ADD-ON Final Res ult Performing Organization Address [facility] Co de Phone Number [facility] [address] [place] [address], [facility] [place] [address] [place] [id number] * Potassium (02/26/2023 4:20 PM CDT) Only the most recent of4 resultswithin the time period is included. Potassium, P 4.4 3.6 - 5.2 mmol/L 02/26/2023 6:31 PM CDT OWAT Blood (Blood, Venous) 02/26/2023 4:20 PM CDT 02/26/2023 6:03 PM CDT Jorge Ordaz M.D. LAB BLOOD ADD-ON Final Res ult Performing Organization Address City/[facility]/ZIP Co de Phone Number [facility] [address] [address], [facility] [place] [address] [place] [address] * Creatinine with Estimated GFR (02/26/2023 4:20 [...] M.D. LAB BLOOD ADD-ON Final Res ult [facility] [address] [place] [address], [facility] OWAT [facility] [place] [address] [place] [address] * (ABNORMAL) Lipid Panel (12/05/2022 3:19 PM PROJECTS MANAGER) Only the most recent of8 resultswithin the time period is included. Triglycerides 48 mg/dL 12/05/2022 6:26 PM PROJECTS MANAGER OWAT Comment: ----REFERENCE VALUE---- Normal: <150 mg/dL Borderline High: 150-199 mg/dL High: 200-499 mg/dL Very High: > or =500 mg/dL Cholesterol, Total 218(H) mg/dL 2022 6:26 PM PROJECTS MANAGER OWAT Comment: ----REFERENCE VALUE---- Desirable: < 200 mg/dL Borderline High: 200 - 239 mg/dL High: > or = 240 mg/dL Cholesterol, LDL, Calculated 137(H) mg/dL 12/05/2022 6:26 PM PROJECTS MANAGER OWAT Comment: ----REFERENCE VALUE---- Desirable: <100 mg/dL Above Desirable: 100-129 mg/dL Borderline High: 130-159 mg/dL High: 160-189 mg/dL Very High: >=190 mg/dL ----ADDITIONAL INFORMATION---- LDL cholesterol calculated using the Pineda/NIH equation. Cholesterol, HDL 73 >=50 mg/dL 12/05/19 6:26 PM PROJECTS MANAGER OWAT Cholesterol, Non-HDL, Calculated 145 mg/dL 12/05/2022 6:26 PM PROJECTS MANAGER OWAT Comment: ----REFERENCE VALUE---- Desirable: <130 mg/dL Above Desirable: 130-159 mg/dL Borderline High: 160-189 mg/dL High: 190-219 mg/dL Very High: > or =220 mg/dL Fasting (8 HR or more) No 12/05/2022 5:53 PM PROJECTS MANAGER OWAT Blood (Blood, Venous) 12/05/2022 3:19 PM PROJECTS MANAGER 12/05/2022 5:53 PM PROJECTS MANAGER us Jay Neves M.D. LAB BLOOD ADD-O N Final Result Performing Organization Address City/State/[facility] Co de Phone Number [facility] [address] [place] [address], [facility] OWAT [facility] [place] [address] [place] [address] * DX Hand Left 3+ Views (09/12/2022 [...] 0.4 x 0.4 x 0.1 cm pale solorio-red irregular soft tissue. The specimen is submitted en toto in cassette A1. Grossed by ARG. B: Received in formalin labeled with the patient's name, medical record number, and colon, random sites (colon) are ten pale solorio-red irregular soft tissues, ranging from 0.3-0.5 cm [...] CDT Cesar Huynh M.D. LAB SURG PATH ORDE FARRAH Final Result [facility] [address] [place] [address], [place] DTL [facility] [address] [place] [address] * Colon, Entire examined colon Colonoscopy-Gastroenterology Image [...] NON RAD IMAGING PROCE DURES Final Result II NA * Colonoscopy (05/20/2022 10:23 AM CDT) [...] colonic preparation and pertinent family history. For [facility] providers, detailed recommendations are available as an [email or web address] Care Process Model: <[email or web address] There may be some circumstances, specifically those [...] bowel preparation was evaluated using the BBPS (Valley Bowel Preparation Scale) with scores of: Right [...] been signed electronically. Number of Addenda: 0 Ryan Portillo M.D. GI PROCEDURE ORDERABLES Fi nal Result * Colonoscopy (05/20/2022 10:23 AM CDT) Anatomical Region Laterality Modality Other 05/20/2022 10:2 3 AM CDT Ryan Portillo M.D. GI PROCEDURE ORDERABLES Fi [...] This assay is performed using the FDA-cleared CartageniaArray GI Panel ([employer] Stool (Stool) 04/29/2022 8:4 0 AM CDT 04/29/2022 3:57 PM CDT Keyana Lara M.D. LAB MICROBIOLOGY - GENERAL O RDERABLES Final Result Performing Organization Address [facility]/ZIP Co de Phone Number [facility] [address] [place] [address], [facility] AUST [facility] [address] [place] [address] * tTG (Tissue Transglutaminase), Antibody, IgA (04/28/2022 4:33 PM CDT) Tissue Transglutaminase Ab, IgA, S <0.5 <15.0 U/mL 04/29/2022 12:58 PM CDT [facility] Blood (Blood, Venous) 04/28/2022 4:33 PM CDT 04/29/2022 10:55 AM CDT Keyana Lara M.D. LAB BLOOD ADD-ON Final Resul t [facility] [address] [place] [address], [facility] WSCA [facility] [place] [address] [place] [address] * S-TSH (Thyroid-Stimulating Hormone - Sensitive) (04/28/2022 4:33 PM CDT) Only the most recent of3 resultswithin the time period is included. TSH, Sensitive 2.5 0.3 - 4.2 mIU/L 04/28/2022 6:31 PM CDT OWAT Blood (Blood, Venous) 04/28/2022 4:33 PM CDT 04/28/2022 6:01 PM CDT Keyana Lara M.D. LAB BLOOD ADD-ON Final Resul t [facility] [address] [place] [address], [place] OWAT [facility] [place] [address] [place] [address] * DX Abdomen 1 View (02/24/2022 12:22 [...] with Microscopic if Indicated (12/17/2021 9:10 AM PROJECTS MANAGER) Only the most recent of3 resultswithin the time period is included. Source Urine, Urine, Clean Catch 12/17/2021 9:14 AM PROJECTS MANAGER FB60 Clarity Clear Clear 12/17/2021 9:24 AM PROJECTS MANAGER FB60 Color Yellow 12/17/2021 9:24 AM PROJECTS MANAGER FB60 Comment: ----REFERENCE VALUE---- Colorless Yellow Beatrice Blood Moderate(A) Negative 12/17/2021 9:24 AM PROJECTS MANAGER FB60 Nitrite Negative Negative 12/17/2021 9:24 AM PROJECTS MANAGER FB60 Leukocyte Esterase Negative Negative 12/17/2021 9:24 AM PROJECTS MANAGER FB60 Protein Negative mg/dL 12/17/2021 9:24 AM PROJECTS MANAGER FB60 Comment: ----REFERENCE VALUE---- Negative Trace Glucose Negative Negative mg/dL 12/17/2021 9:24 AM PROJECTS MANAGER FB60 Ketones, QI(U) Trace(A) Negative mg/dL 12/17/2021 9:24 AM PROJECTS MANAGER FB60 Bilirubin Negative Negative 12/17/2021 9:24 AM PROJECTS MANAGER FB60 pH 5.5 5.0 - 8.0 12/17/2021 9:24 AM PROJECTS MANAGER FB60 Specific [place] 1.020 1.001 - 1.035 12/17/2021 9:24 AM PROJECTS MANAGER FB60 Urobilinogen 1.0 0.2 - 1.0 mg/dL 12/17/2021 9:24 AM PROJECTS MANAGER FB60 Urine (Urine, Clean Catch) 12/17/2021 9:10 AM PROJECTS MANAGER 12/17/2021 9:14 AM PROJECTS MANAGER Jay Neves M.D. LAB URINE ORDER BOO Final Result [facility] [address] [place] [address], [facility] FB60 [facility] [place] [address] [place] [address] * (ABNORMAL) Microscopic Manual (12/17/2021 9:10 AM PROJECTS MANAGER) Only the most recent of5 resultswithin the time period is included. White Blood Cells Occ-3 /hpf 12/17/2021 9:25 AM PROJECTS MANAGER FB60 Comment: ----REFERENCE VALUE---- Males: 0-3 Females: 0-10 Unknown: 0-10 Red Blood Cells Occ-2 0 - 2 /hpf 12/17/2021 9:25 AM PROJECTS MANAGER FB60 Hyaline Casts Occasional /lpf 12/17/2021 9:25 AM PROJECTS MANAGER FB60 Squamous Cells Occ-3 /hpf 12/17/2021 9:25 AM PROJECTS MANAGER FB60 Bacteria Present(A) None Seen 12/17/2021 9:25 AM PROJECTS MANAGER FB60 Urine 12/17/2021 9:10 AM PROJECTS MANAGER 12/17/2021 9:14 AM PROJECTS MANAGER Jay Neves M.D. LAB URINE ORDER BOO Final Result Performing Organization Address City/[facility]/ZIP Co de Phone Number [facility] [address] [place] [address], [place] [id number] [facility] [place] [address] [place] [address] * Hemoglobin A1c (11/26/2021 3:25 PM PROJECTS MANAGER) Hemoglobin A1c, B 5.0 4.2 - 5.6 % 11/26/2021 4:45 PM PROJECTS MANAGER OWAT Blood (Blood, Venous) 11/26/2021 3:25 PM PROJECTS MANAGER 11/26/2021 4:20 PM PROJECTS MANAGER Jay Neves M.D. LAB BLOOD ADD-O N Final Result [facility] [address] [place] [address], [place] OW[place] [facility] [place] [address] [place] [address] * Thiamine (Vitamin B1), Whole Blood (11/25/2021 1:45 PM PROJECTS MANAGER) Thiamine (Vitamin B1), WB 101 70 - 180 nmol/L 11/28/2021 7:30 AM PROJECTS MANAGER [facility] Comment: ----ADDITIONAL INFORMATION---- This test was developed and its performance characteristics determined by [facility] in a manner consistent with CLIA requirements. This test has not been cleared or approved by the U.S. Food and Drug Administration. Blood (Blood, Venous) 11/25/2021 1:45 PM PROJECTS MANAGER 11/26/2021 2:01 PM PROJECTS MANAGER us Teodoro Pyle M.D., M.P.H. LAB BLOOD NON ADD-ON Final Result [facility] [address] [place] [address] [facility] Dept. of Laboratory Medicine and Pathology [address] [place] [address] * Methylmalonic Acid (MMA), Quantitative, Serum (11/25/2021 8:40 AM PROJECTS MANAGER) Methylmalonic Acid, QN, S 0.25 <=0.40 nmol/mL 11/27/2021 8:41 AM PROJECTS MANAGER ON LICENSE OF [facility] Comment: No cellular B-12 deficiency. ----ADDITIONAL INFORMATION---- This test was developed and its performance characteristics determined by [facility] in a manner consistent with CLIA requirements. This test has not been cleared or approved by the U.S. Food and Drug Administration. Blood 11/25/2021 8:40 AM PROJECTS MANAGER 11/26/2021 10:34 AM PROJECTS MANAGER us Teodoro Pyle M.D., M.P.H. LAB BLOOD NON ADD-ON Final Result [facility] [address] [place] [address], [place] DTL [facility] [address] [place] [address] * Pernicious Anemia [place] (11/25/2021 8:40 AM PROJECTS MANAGER) Vitamin B12 Assay, S 213 180 - 914 ng/L 11/26/2021 9:37 AM PROJECTS MANAGER [facility] Comment:B-12 <400; MMA test was performed. Blood (Blood, Venous) 11/25/2021 8:40 AM PROJECTS MANAGER 11/26/2021 8:00 AM PROJECTS MANAGER Teodoro Pyle M.D., M.P.H. LAB BLOOD NON ADD-ON Final Result Performing Organization Address [facility]/ZIP Co de Phone Number [facility] [address] [place] [address] [facility] Dept. of Laboratory Medicine and Pathology [address] [place] [address] * Influenza A/B and RSV, PCR, Varies (11/19/2021 1:11 PM PROJECTS MANAGER) Influenza A/B and RSV, Source Swab, Nasopharynx 11/21/2021 6:37 AM PROJECTS MANAGER DTL Influenza A, PCR Undetected Undetected 11/21/19 22 6:37 AM PROJECTS MANAGER DTL Comment:Influenza A RNA abse nt. Influenza B, PCR Undetected Undetected 11/21/19 22 6:37 AM PROJECTS MANAGER DTL Comment:Influenza B RNA abse nt. Respiratory Syncytial Virus, PCR Undetected Undetected 11/21/2021 6:37 AM PROJECTS MANAGER DTL Comment: RSV RNA absent. ----ADDITIONAL INFORMATION---- This test has been modified from the skull chopper's instructions. Its performance characteristics were determined by [facility] in a manner consistent with CLIA requirements. This test has not been cleared or approved by the U.S. Food and Drug Administration. Varies (Nasopharynx) 11/19/2021 1:11 PM PROJECTS MANAGER 11/19/2021 10:51 PM PROJECTS MANAGER Moy Mena D.O. LAB MICROBIOLOGY - GENERAL ORDERABLES Final Result Performing Organization Address [facility] Co de Phone Number [facility] [address] [place] [address], [place] D[place] [facility] [address] [place] [address] * SARS Coronavirus-2 RNA, V Symptomatic (11/19/2021 1:11 PM PROJECTS MANAGER) Only the most recent of2 resultswithin the time period is included. SARS-CoV-2 Specimen Source Swab, Nasopharynx 11/20/2021 4:15 AM PROJECTS MANAGER MKTO SARS CoV-2 RNA, TMA Undetected Undetected 11/20/2021 4:15 AM PROJECTS MANAGER [facility] Comment: SARS-CoV-2 RNA absent. This result does not rule out COVID-19 in the patient, as the sensitivity of the test depends on the timing of the specimen collection and the quality of the specimen. Result should be correlated with patient's history and clinical presentation. ----ADDITIONAL INFORMATION---- This molecular amplification test was performed using the Aptima SARS-CoV-2 assay ([employer] on the [employer] System under emergency use authorization (EUA) by the U.S. Food and Drug Administration. Fact sheets for this EUA assay can be found at the following links: For Healthcare Providers: https://www.fda.gov/media/799980/download For Patients: https://www.fda.gov/media/692409/download Varies (Nasopharynx) 11/19/2021 1:11 PM PROJECTS MANAGER 11/19/2021 8:04 PM PROJECTS MANAGER us Moy Mena D.O. LAB MICROBIOLOGY - GENERAL ORDERABLES Final Result [facility] [address] [place] [address], [facility] [place] [address] * Otorhinolaryngology Image Exam-Otorhinolaryngology Image Exam (07/12/2021 [...] PROCE DURES Final Result Performing Organization Address [facility]/ZIP Co de Phone Number [facility] NA * AK ARTHCS ASP/INJ MJR JT WO US (04/03/2021 1:12 PM CDT) Narrative MMODAL [...] Stuart M.D. PROCEDURE/MINOR SURGICAL ORDERABLES Final Result Performing Organization Address [facility] Co de Phone Number MM[facility]AL NA * DX Shoulder Right 2+ [...] clips. Bobby Stuart M.D. IMG DIAGNOSTIC IMAGING AK OCEDURES Final Result * DX Ribs Right 2 Views (01/17/2021 12:29 PM PROJECTS MANAGER) Only the most recent of2 resultswithin the time period is included. Anatomical Region Laterality Modality Ribs, Chest, Musculoskeletal RST LOS, Musculoskeletal ARZ LOS, Muskuloskeletal FLA LOS Right Digital Radiography 01/18/2021 12:0 4 PM PROJECTS MANAGER Impressions 01/18/2021 12:06 PM PROJECTS MANAGER Demineralized appearance of the bones slightly limits evaluation for fracture. Questionable nondisplaced fractures of the anterior right rib 5-7. No pneumothorax. Median sternotomy and postoperative changes of mitral and tricuspid valvuloplasty. Curvature of the spine. Narrative 01/18/2021 12:06 PM PROJECTS MANAGER EXAM: DX RIBS RIGHT 2 VIEWS COMPARISON: 09/15/2018 Procedure Note Benedicto Jenkins M.D. - 01/18/2021 EXAM: DX RIBS RIGHT 2 VIEWS COMPARISON: 09/15/2018 IMPRESSION: Demineralized appearance of the bones slightly limits evaluation for fracture. Questionable nondisplaced fractures of the anterior right rib5-7. No pneumothorax. Median sternotomy and postoperative changes of mitral and tricuspid valvuloplasty. Curvature of the spine. us Kelly SampsonAJuan Alberto, R.N. IMG DIAGNOSTIC IMAGIN G PROCEDURES Final Result * (ABNORMAL) Glucose, Fasting (09/11/2020 8:31 AM CDT) Glucose, P 101(H) 70 - 100 mg/dL 09/11/2020 11:14 AM CDT OWAT Last Intake 14 hr 09/11/2020 10:28 AM CDT OWAT Blood (Blood, Venous) 09/11/2020 8:31 AM CDT 09/11/2020 10:28 AM CDT Andreas Brooks M.D. LAB BLOOD NON AD D-ON Final Result [facility] [address] [place] [address], [facility] OWAT [facility] [place] [address] [place] [address] * SARS-CoV-2 Total Antibody, Serum (05/15/2020 3:55 PM CDT) Pathologist [facility] SARS-CoV-2 Nucleocapsid Total Ab, S Negative Negative 05/15/2020 7:36 PM CDT MKTO Comment: No antibodies to SARS-CoV-2 detected. Negative results may occur in serum collected too soon following infection or in immunosuppressed patients. Follow-up testing with a molecular test is recommended in symptomatic patients. This test should not be used to exclude active/recent COVID-19. ----ADDITIONAL INFORMATION---- Testing was performed using the [employer] Ele[employer]ys [id number]-2 Reagent assay from [employer], which has received Emergency Use Authorization(EUA) by the U.S. Food and Drug Administration. Fact sheets for this Emergency Use Authorization (EUA) assay can be found at the following links: For Healthcare Providers: https://www.fda.gov/media/101166/download For Patients: https://www.fda.gov/media/040930/download Blood 05/15/2020 3:55 PM CDT 05/15/2020 7:08 PM CDT us Jay Neves M.D. LAB MICROBIOLOG Y - BLOOD ORDERABLES Final Result [facility] [address] [place] [address], [place] MK[place] [facility] [place] [address] [place] [address] * (TTE) 2D ECHO DOPPLER COLOR (02/01/2020 [...] Normal left ventricular chamber size. Calculated ejection %. Abnormal septal motion (postoperative). Otherwise, no regional [...] Toe-Outside Other (01/28/2019 12:00 PM CDT) Narrative [facility] - 01/31/2019 2:44 PM CDT This order has been created and auto-finalized to support the import of outside images. If available, original interpretation can be found on the Media Tab in Chart Review, in Document Viewer, or as an image in QREADS. If a re-interpretation or overread is required please follow defined workflow. us Provider Not In System IMG DIAGNOSTIC IMAGING AK OCEDURES Final Result [facility] NA * Bacterial Culture, Aerobic + Susc, Resp (09/29/2018 4:09 PM PROJECTS MANAGER) Bacterial Culture, Aerobic, Resp Usual ade 09/30/2018 3:03 PM PROJECTS MANAGER [facility] Sputum (Sputum) 09/29/2018 4 :09 PM PROJECTS MANAGER 09/29/2018 7:11 PM PROJECTS MANAGER Comment:Specimen Source Site : Sputum us Andreas Brooks M.D. LAB MICROBIOLOGY - GENERAL ORDERABLES Final Result [facility] [address] [place] [address], [facility] * DX Ribs Right 2 Views with [...] lower lobe unchanged dating back to 2004; this should be benign. No change since [...] benign. No change since 06/09/2018. Ronaldo Lewis APRNN.P. IMG DIAGNOSTIC IMAG ING PROCEDURES Final Result [...] workflow. us Provider Not In System IMG NON RAD IMAGING PROCE DURES Final Result [facility] NA * AK BX SKIN/SUBQ TISS 1ST LESION (06/17/2018 11:15 [...] the patient and/or decision maker.: Not addressed [place] protocol: All relevant documentation and testing were [...] Brooks M.D. PROCEDURE/MINOR SURGICAL ORDERABLES Final Result [facility] NA * 25-Hydroxyvitamin D2 and D3 (06/09/2018 12:06 PM CDT) 25-Hydroxy D2 <4.0 ng/mL 06/11/2018 8:03 AM CDT [facility] 25-Hydroxy D3 26 ng/mL 06/11/2018 8:03 AM CDT [facility] 25-Hydroxy D Total 26 ng/mL 2017 8:03 AM CDT [facility] Comment: ----REFERENCE VALUE---- 25-HYDROXY D TOTAL (D2+D3) Optimum levels in the healthy population are 20-50, patients with bone disease may benefit from higher levels within this range. ----ADDITIONAL INFORMATION---- This test was developed and its performance characteristics determined by [facility] in a manner consistent with CLIA requirements. This test has not been cleared or approved by the U.S. Food and Drug Administration. Blood (Blood, Venous) 06/09/2018 12:06 PM CDT 06/10/2018 8:41 AM CDT Andreas Brooks M.D. LAB BLOOD ADD-ON Final Result [facility] [address] [place] [address] * DX Toes Right 3 Views (05/03/2018 [...] Susc, Urine Urine, Midstream (01/05/2018 8:18 AM PROJECTS MANAGER) Bacterial Culture, Aerobic, Urine ESCHERICHIA COLI >100,000 cfu/mL (A) 01/07/2018 8:06 AM PROJECTS MANAGER [facility] Urine (Urine, Midstream) 01/05/2018 8:18 AM PROJECTS MANAGER 01/05/2018 1:50 PM PROJECTS MANAGER Comment:Specimen Source Site : Urine Narrative Organism [...] Sulfamethoxazole SUSCEPTIBILITY, ADRYAN (MCG/ML) <=20 mcg/mL: Susceptible Andreas Brooks M.D. LAB MICROBIOLOGY - GENERAL ORDERABLES Final Result [facility] [address] [place] [address] * Obstetrics and Gynecology office visit (clinic) (10/05/2017 6:11 PM PROJECTS MANAGER) Kyung Valdovinos M.D. OUTPATIENT RETURN VIS ITS Final Result * AK HYSTEROSCOPY DIAGNOSTIC (10/05/2017 9:15 AM PROJECTS MANAGER) Narrative [facility] - 10/05/2017 9:15 AM PROJECTS MANAGER Kyung Valdovinos M.D. 10/05/2017 6:11 PM Hysteroscopy/Endometrial [...] the patient and/or decision maker.: Not addressed [place] protocol: All relevant documentation and testing were [...] COLOR AND LIMITED DOPPLER (09/23/2017 1:10 PM PROJECTS MANAGER) Ejection Fraction 54 MC CV EIMS LV [...] Laterality Modality Echocardiography 09/23/2017 12:2 7 PM PROJECTS MANAGER Narrative 09/23/2017 2:42 PM PROJECTS MANAGER See PDF For Result Procedure Note Jorge Ordaz M.D. - 07/08/2018 See PDF For Result Jorge Ordaz M.D. CV ECHO PROCEDURES Edited [...] 09:26:22 US Pelvic And Endovaginal Addendum by ProviderButch M.D. on 07/23/2017 9:26 AM CDT RAD^^^OW [...] 3. Left oophorectomy. us Augustine Morris Jr., R.D.M.S. IMG US PROCEDU RES Edited Result - Final [...] malignancy. Procedure Note Oscar Latham M.D. / ProviderButch M.D. - 08/20/2017 EXAM: MA Mammo Screening [...] the digital mammogram images. us Jazmín Capps(R), R.T.(R)(M) [facility] BI P ROCEDURES Edited Result - Final [...] elbow, no appreciable acute osseous injury. Beth Crawford R.T.(R), R.T.(R)(M) [facility] DIAGNOSTIC IMAGING PROCEDURES Edited Result - Final * HX LABORATORY - SCANNED (06/02/2017 12:00 AM CDT) Only the most recent of2 resultswithin the time period is included. Hx Laboratory-Scan roly [facility] 06/02/2017 Historical Provider LAB HISTORICAL ORDERS Final Result Performing Organization Address [facility] de Phone Number [facility] * ECG Event Recorder (05/18/2017 9:53 AM CDT) Only the most recent of5 resultswithin the time period is included. 05/18/2017 9:53 AM CDT Historical Provider CV CARDIAC SERVICES PROCEDUR ES Final Result Performing Organization Address [facility] de Phone Number HISTORICAL [facility] IMAGING CONVERSION * Hemoglobin (04/08/2017 9:22 AM CDT) Pathologist [facility] Hemoglobin 13.7 12.0 - 15.5 GDL POWERCHART Blood 04/08/2017 9:22 AM CDT Result [facility] Jorge Ordaz M.D. LAB BLOOD ADD-ON Final Res ult Performing Organization Address [facility] de Phone Number POWERCHART * Digoxin Level (04/08/2017 9:22 AM CDT) Pathologist [facility] Digoxin, S 0.6 0.5 - 2.0 NGML POWERCHART Comment: Pediatric toxic concentration may be higher. Reference values have not been established for patients that are < 16 years of age. Biotin has been identified by the skull chopper as a potential interfering substance. Higher concentrations of biotin may be found in multivitamins, hair/nail supplements, and workout supplements. If the result does not match clinical observations, repeat testing after patient refrains from the use of supplements for at least 12 hours. Blood 04/08/2017 9:22 AM CDT Result [facility] Jorge Ordaz M.D. LAB BLOOD ADD-ON Final Res ult Performing Organization Address [facility] de Phone Number POWERCHART * ECHOCARDIOLOGY IMAGE EXAM (02/25/2017 11:24 AM CDT) Only the most recent of13 resultswithin the time period is included. Anatomical Region Laterality Modality Other 02/25/2017 11:2 4 AM CDT Addenda Addendum by ProviderButch M.D. on 02/25/2017 11:24 AM CDT ECHO^^^MCR OUTREACH 02/25/2017 11:24:00 Historical Provider IMG NON RAD IMAGING PROCEDUR ES Final Result * Echo Transthoracic (TTE) (02/25/2017 10:17 AM CDT) Anatomical Region Laterality Modality Echocardiography 02/25/2017 10:1 7 AM CDT Historical Provider CV ECHO PROCEDURES Final Res ult * Echo Transthoracic (TTE) (09/17/2016 10:52 AM CDT) Anatomical Region Laterality Modality Echocardiography 09/17/2016 10:5 2 AM CDT Historical Provider CV ECHO PROCEDURES Final Res ult * Lyme Disease Serology, Serum (07/15/2016 4:28 PM CDT) Pathologist [facility] Lyme Disease Serology, S Negative Negative POWERCHART Comment: Serologic response to B. burgdorferi infection is not detected, but cannot rule out early infection during which low or undetectable antibody levels to B. burgdorferi may be present. If clinically indicated, a new serum specimen should be submitted in 7-14 days. Test Performed by: [place] [address] Credit Officer: Ollie Carbajal II, M.D., Ph.D. Blood 07/15/2016 4:28 PM CDT Travis Waggoner M.D. LAB MICROBIOLOGY - BLOOD ORDER BOO Final Result POWERCHART * (ABNORMAL) Automated Differential (06/04/2016 2:47 PM CDT) Only the most recent of7 resultswithin the time period is included. Pathologist [facility] Absolute Neutrophils 2.85 1.70 - 7.00 109L POWERCHART Lymphocytes 0.81(L) 0.90 - 2.90 X109L POWERCHART Monocytes 0.52 0.30 - 0.90 X109L POWERCHART Eosinophils 0.19 0.05 - 0.50 X109L POWERCHART Absolute Basophil 0.02 0.00 - 0.30 X109L POWERCHART Blood 06/04/2016 2:47 PM CDT 06/04/2016 2:47 PM CDT Beni Turpin M.D. LAB BLOOD ADD-ON Final Res ult POWERCHART * (ABNORMAL) NT-Pro B-Type Natriuretic Peptide (BNP) (06/04/2016 2:47 PM CDT) Only the most recent of5 resultswithin the time period is included. B-Type Natriuretic Peptide (BNP) 299(H) 10 - [...] ADD-ON Final Res ult Performing Organization Address City/[facility]/ZIP Co de Phone Number POWERCHART * Echo Transthoracic (TTE) (03/05/2016 11:01 AM CDT) Anatomical Region Laterality Modality Echocardiography 03/05/2016 11:0 1 AM CDT Historical Provider CV ECHO PROCEDURES Final Res ult * Protime/INR, POCT (01/23/2016 12:32 PM PROJECTS MANAGER) Only the most recent of11 resultswithin the time period is included. INR, POCT, B 1.2 POWERCHART 01/23/2016 12:3 2 PM PROJECTS MANAGER Beni Turpin M.D. LAB POCT ORDERABLES - MAYUR CE Edited Result - Final POWERCHART * Echo Transesophageal (ANISH) (11/23/2015 12:35 PM PROJECTS MANAGER) Anatomical Region Laterality Modality Echocardiography 11/23/2015 12:3 5 PM PROJECTS MANAGER Hina Neves CV ECHO PROCEDURES Brii l Result * Electrolyte (Chem 4) Panel (11/23/2015 5:21 AM PROJECTS MANAGER) Only the most recent of11 resultswithin the time period is included. Pathologist [facility] Sodium, S 139 135 - 145 MMOL/L [facility] Comment:Drawn Above IV Potassium, S 4.4 3.6 - 5.2 MMOL/L [facility] Comment:Drawn Above IV Creatinine 0.9 0.6 - 1.1 MG/DL [facility] Comment:Drawn Above IV eGFR Non-Black/Afric an Niuean >60 >60 ML/MIN/BSA [facility] Comment:Drawn Above IV eGFR-Black/Afri can Niuean >60 >60 ML/MIN/BSA [facility] Comment:Drawn Above IV BUN (Blood Urea Nitrogen), S 11 6 - 21 MG/DL [facility] Comment:Drawn Above IV Chloride, S 103 98 - 107 MMOL/L [facility] Comment:Drawn Above IV HX Bicarbonate, P/S 24 22 - 29 MMOL/L [facility] Comment:Drawn Above IV Anion Gap 12 7 - 15 [facility] Comment:Drawn Above IV Glucose, S 101 70 - 140 MG/DL [facility] Comment:Drawn Above IV 11/23/2015 5:21 AM PROJECTS MANAGER 11/23/2015 5:21 AM PROJECTS MANAGER Narrative [facility] - 11/23/2015 6:17 AM PROJECTS MANAGER Drawn Above IV Ap Rodríguez APRN RJuan AlbertoN. LAB BLOOD ADD-ON Fin al Result Performing Organization Address City/[facility] Co de Phone Number [facility] [address] * (ABNORMAL) APTT (Activated Partial Thromboplastin Time) (11/23/2015 5:21 AM PROJECTS MANAGER) Only the most recent of15 resultswithin the time period is included. APTT, P 58(H) 28 - 38 SEC [facility] Comment:Drawn Above IV 11/23/2015 5:21 AM PROJECTS MANAGER 11/23/2015 5:21 AM PROJECTS MANAGER Narrative [facility] - 11/23/2015 6:05 AM PROJECTS MANAGER Drawn Above IV Ap Rodríguez APRN, R.N. LAB BLOOD ADD-ON Fin al Result Performing Organization Address [facility] de Phone Number [address] * (ABNORMAL) PT (Prothrombin Time) with INR (11/23/2015 5:21 AM PROJECTS MANAGER) Only the most recent of16 resultswithin the time period is included. Prothrombin Time, P 18.4(H) 9.5 - 13.8 SEC [facility] Comment:Drawn Above IV INR 1.6 0.8 - 1.2 [facility] Comment:Drawn Above IV 11/23/2015 5:21 AM PROJECTS MANAGER 11/23/2015 5:21 AM PROJECTS MANAGER Narrative [facility] - 11/23/2015 6:05 AM PROJECTS MANAGER Drawn Above IV us Ap Rodríguez APRN R.N. LAB BLOOD ADD-ON Fin al Result [facility] [address] * ALT (Alanine Aminotransferase) (11/22/2015 6:38 AM PROJECTS MANAGER) Alanine Aminotransferase (ALT), S 19 7 - 45 U/L [facility] 11/22/2015 6:38 AM PROJECTS MANAGER 11/22/2015 6:38 AM PROJECTS MANAGER us Kayley Denson APRNN. LAB BLOOD ADD-ON Fin al Result Performing Organization Address City/[facility] Co de Phone Number [facility] [address] * AST (Aspartate Aminotransferase) (11/22/2015 6:38 AM PROJECTS MANAGER) AST, Total, S 23 8 - 43 U/L [facility] 11/22/2015 6:38 AM PROJECTS MANAGER 11/22/2015 6:38 AM PROJECTS MANAGER us Ap Rodríguez APRN, R.N. LAB BLOOD ADD-ON Fin al Result Performing Organization Address City/[facility] Co de Phone Number [facility] [address] * Bilirubin, Direct (11/22/2015 6:38 AM PROJECTS MANAGER) Bilirubin, Direct, S 0.1 0.0 - 0.3 MG/DL [facility] 11/22/2015 6:38 AM PROJECTS MANAGER 11/22/2015 6:38 AM PROJECTS MANAGER us Ap Rodríguez APRN R.Brian. LAB BLOOD ADD-ON Fin al Result Performing Organization Address City/[facility] Co de Phone Number [facility] [address] * Bilirubin, Total (11/22/2015 6:38 AM PROJECTS MANAGER) Bilirubin, Total, S 0.4 <=1.2 MG/DL [facility] 11/22/2015 6:38 AM PROJECTS MANAGER 11/22/2015 6:38 AM PROJECTS MANAGER us Ap Rodríguez APRN, R.N. LAB BLOOD ADD-ON Fin al Result Performing Organization Address City/[facility] Co de Phone Number [facility] [address] * Echo Transthoracic (TTE) (11/21/2015 8:34 AM PROJECTS MANAGER) Anatomical Region Laterality Modality Echocardiography 11/21/2015 8:34 AM PROJECTS MANAGER us Tommie Harris M.D. CV ECHO PROCEDURES Final Result * Cardiac Biomarker Panel (11/21/2015 2:35 AM PROJECTS MANAGER) Pathologist [facility] Delta Interp Not Sig [facility] Comment:No significant delta observed. Troponin Delta 0.00 NG/ML [facility] Troponin T 6H, S <0.01 <0.01 NG/ML [facility] Delta Interp Not Sig [facility] Comment:No significant delta observed. Troponin T, S <0.01 <0.01 NG/ML [facility] Troponin T 3H, S <0.01 <0.01 NG/ML [facility] Troponin Delta 0.00 NG/ML [facility] 11/21/2015 2:35 AM PROJECTS MANAGER 11/21/2015 2:35 AM PROJECTS MANAGER us Carlos Hair APRN, C.N.P. LAB BLOOD ADD-ON Final Result Performing Organization Address City/[facility]/ZIP Co de Phone Number [facility] [address] * Procalcitonin (11/21/2015 2:35 AM PROJECTS MANAGER) Pathologist [facility] Procalcitonin, S <0.10 <=0.15 NG/ML [facility] 11/21/2015 2:35 AM PROJECTS MANAGER 11/21/2015 2:35 AM PROJECTS MANAGER us Carlos Pool Laxmi BLANCO, C.N.P. LAB BLOOD ADD-ON Final Result [facility] [address] [place], [place] [id number] [place] [address] * CT Chest Angiogram and Pulmonary Arteries with IV Contrast (11/20/2015 9:22 PM PROJECTS MANAGER) Anatomical Region Laterality Modality Cardiac N/A Computed Tomogra phy 11/20/2015 9:22 PM PROJECTS MANAGER Impressions 11/20/2015 10:09 PM PROJECTS MANAGER 1. Negative for acute pulmonary embolism. 2. [...] [id number] 20-Nov-2015 22:09 Narrative 11/20/2015 10:09 PM PROJECTS MANAGER 20-Nov-2015 21:22:00 Exam: CTA Chest PE Indications: [...] by: Haresh Rothman M.D. [id number] 20-Nov-2015 22:09 Jailyn Jorge MD [id number] 22:09 Mirna Sumner M.D. IMG CT PROCEDURES Final Re sult * Gram Stain, Confirmatory, Urine (11/20/2015 7:11 PM PROJECTS MANAGER) Grams Stain, Confirmatory, Urine Negative [facility] 11/20/2015 7:11 PM PROJECTS MANAGER 11/20/2015 7:11 PM PROJECTS MANAGER Mirna Sumnre M.D. LAB URINE ORDERABLES Final Result [facility] [address] [place], [place] [phone] [place] [address] * (ABNORMAL) Urinalysis with Microscopic (11/20/2015 7:11 PM PROJECTS MANAGER) Only the most recent of3 resultswithin the time period is included. Glucose 3 0 - 15 MG/DL [facility] Protein, U 6 <22 MG/DL [facility] Comment: ADDITIONAL INFORMATION On 05/29/2014 the total protein assay method changed resulting in approximately a 20% increase in protein values. pH, 24 HR, U 6.4 4.5 - 8.[address] [facility] [place] Protein/Osmolali ty 0.28(H) <0.27 RATIO [facility] Comment: ADDITIONAL INFORMATION On 05/29/2014 the total protein assay method changed resulting in approximately a 20% increase in protein values. Predicted 24 Hr Protein 214 MG/24 H [facility] Predicted Range 53-865 MG/24 H [facility] Source Midstream [facility] Appearance Normal Normal [facility] IC [facility] Hemoglobin, QL Negative Negative [facility] Osmolality, 24 HR, U 211 150 - 1150 MOSM/KG [facility] 11/20/2015 7:11 PM PROJECTS MANAGER 11/20/2015 7:11 PM PROJECTS MANAGER us Mirna Sumner M.D. LAB URINE ORDERABLES Final Result Performing Organization Address [facility] Co de Phone Number [facility] [address] * pH (11/20/2015 5:28 PM PROJECTS MANAGER) Only the most recent of2 resultswithin the time period is included. pH 7.41 7.35 - 7.45 PH [facility] 11/20/2015 5:28 PM PROJECTS MANAGER 11/20/2015 5:28 PM PROJECTS MANAGER us Mirna Sumner M.D. LAB HISTORICAL ORDERS Brii l Result Performing Organization Address [facility] Co de Phone Number [facility] [address] * Calcium, Ionized (11/20/2015 5:28 PM PROJECTS MANAGER) Only the most recent of6 resultswithin the time period is included. Calcium, Ionized, B 4.83 4.65 - 5.30 MG/DL [facility] 11/20/2015 5:28 PM PROJECTS MANAGER 11/20/2015 5:28 PM PROJECTS MANAGER Mirna Sumner M.D. LAB BLOOD NON ADD-ON Final Result Performing Organization Address [facility] Co de Phone Number [facility] [address] * Lactate, POCT (11/20/2015 5:20 PM PROJECTS MANAGER) Lactate, POCT 0.68 0.60 - 2.30 MMOL/L [facility] Sample Site, POCT Venstick [facility] 11/20/2015 5:20 PM PROJECTS MANAGER 11/20/2015 5:20 PM PROJECTS MANAGER Historical Provider LAB POCT ORDERABLES - DEVICE Final Result Performing Organization Address [facility] Co de Phone Number [facility] [address] * Echo Transthoracic (TTE) (10/22/2015 12:59 PM PROJECTS MANAGER) Anatomical Region Laterality Modality Echocardiography 10/22/2015 12:5 9 PM PROJECTS MANAGER Connor Ramos M.D., Ph.D. CV ECHO PROCEDURES Brii l Result * Glucose, POCT (10/17/2015 12:17 PM PROJECTS MANAGER) Only the most recent of28 resultswithin the time period is included. Glucose, POCT, B 106 70 - 140 MG/DL [facility] Last Intake 3-[address] [facility] 10/17/2015 12:1 7 PM PROJECTS MANAGER 10/17/2015 12:17 PM PROJECTS MANAGER Historical Provider LAB POCT ORDERABLES-MANUAL F inal Result Performing Organization Address [facility] de Phone Number [facility] [address] * Electrolyte Panel with Creatinine Juno (10/17/2015 3:57 AM PROJECTS MANAGER) Only the most recent of3 resultswithin the time period is included. Sodium, P 140 135 - 145 MMOL/L [facility] Potassium, P 4.0 3.6 - 5.2 MMOL/L [facility] Glucose, S 122 70 - 140 MG/DL [facility] Anion Gap 10 7 - 15 [facility] Chloride, S 103 98 - 107 MMOL/L [facility] BUN (Blood Urea Nitrogen), S 19 6 - 21 MG/DL [facility] HX Bicarbonate, P/S 27 22 - 29 MMOL/L [facility] Creatinine, Juno 0.6 0.5 - 0.9 MG/DL [facility] 10/17/2015 3:57 AM PROJECTS MANAGER 10/17/2015 3:57 AM PROJECTS MANAGER Guanakito Souza P.A.-C., M.S. LAB BLOOD ADD-ON Fin al Result Performing Organization Address [facility] Co de Phone Number [facility] [address] * DX Chest Portable 1 View (10/16/2015 5:18 AM PROJECTS MANAGER) Only the most recent of2 resultswithin the time period is included. Anatomical Region Laterality Modality Chest N/A Radiographic Velia ging 10/16/2015 5:18 AM PROJECTS MANAGER Impressions 10/16/2015 5:54 AM PROJECTS MANAGER ET tube has been removed since yesterday. Mediastinal drain. Olar-Natty catheter in the MPA. Mitral annuloplasty. Epicardial pacer wires. Cardiomegaly. Small left pleural effusion. Right pleural space is clear. Pulmonary venous hypertension. Stable consolidation in the left lower lobe. Electronically signed by: Aimee Navas [id number] 16-Oct-2015 05:54 Narrative 10/16/2015 5:54 AM PROJECTS MANAGER 16-Oct-2015 05:18:00 Exam: Portable-Chest Indications: s/p cardiac surgery ORIGINAL REPORT - 16-Oct-2015 05:54:00 EXAM: Chest; 1 view: Procedure Note Aimee Navas M.B., Ch.B. - 02/11/2018 16-Oct-2015 05:18:00 Exam: Portable-Chest Indications: s/p cardiac surgery ORIGINAL REPORT - 16-Oct-2015 05:54:00 EXAM: Chest; 1 view: IMPRESSION: ET tube has been removed since yesterday. Mediastinal drain.Olar- Natty catheter in the MPA. Mitral annuloplasty. Epicardial pacerwires. Cardiomegaly. Small left pleural effusion. Right pleural space isclear. Pulmonary venous hypertension. Stable consolidation in the leftlower lobe. Electronically signed by: Aimee Navas [id number] 16-Oct-2015 05:54 Barbara Mujica APRN C.N.P. IMG DIAGNOSTIC IM AGING PROCEDURES Final Result * (ABNORMAL) Blood Gas with Coox, Arterial (10/16/2015 3:22 AM PROJECTS MANAGER) Only the most recent of10 resultswithin the time period is included. Arterial Sample Site Art Line [facility] O2 Flow 2.0 L/MIN [facility] pCO2 44 35 - 45 MM HG [facility] pH 7.38 7.35 - 7.45 PH [facility] Base Excess 1 -2 - 2 MMOL/L [facility] HCO3 25 22 - 26 MMOL/L [facility] COHb 1.7 <3.0 % [facility] MetHb 1.3 <1.6 % [facility] Device NC [facility] pO2 89 80 - 100 MM HG [facility] Hb 9.6(L) 12.0 - 15.5 G/DL [facility] O2Hb 94.3 94.0 - 98.0 % [facility] CtO2 12.8(L) 21.0 - 23.0 VOL % [facility] 10/16/2015 3:2 2 AM PROJECTS MANAGER 10/16/2015 3:22 AM PROJECTS MANAGER us Barbara Mujica APRN C.N.P. LAB BLOOD NON ADD -ON Final Result Performing Organization Address City/[facility]/ZIP Co de Phone Number [facility] [address] * (ABNORMAL) Lactate (10/16/2015 12:29 AM PROJECTS MANAGER) Only the most recent of7 resultswithin the time period is included. Lactate, P 3.8(H) 0.6 - 2.3 MMOL/L [facility] 10/16/2015 12:2 9 AM PROJECTS MANAGER 10/16/2015 12:29 AM PROJECTS MANAGER us Guanakito Souza P.A.-C., M.S. LAB BLOOD NON ADD-ON Final Result Performing Organization Address City/[facility] Co de Phone Number [facility] [address] * Potassium, Blood (10/15/2015 10:24 PM PROJECTS MANAGER) Only the most recent of7 resultswithin the time period is included. Potassium, B 4.3 3.6 - 5.2 MMOL/L [facility] 10/15/2015 10:2 4 PM PROJECTS MANAGER 10/15/2015 10:24 PM PROJECTS MANAGER Guanakito Souza P.A.-C., M.S. LAB BLOOD NON ADD-ON Final Result Performing Organization Address City/[facility]/ZIP Co de Phone Number [facility] [address] * (ABNORMAL) Fibrinogen (10/15/2015 3:30 PM PROJECTS MANAGER) Only the most recent of3 resultswithin the time period is included. Fibrinogen, P 187(L) 200 - 430 MG/DL [facility] 10/15/2015 3:30 PM PROJECTS MANAGER 10/15/2015 3:30 PM PROJECTS MANAGER us Connor Ramos M.D., Ph.D. LAB BLOOD ADD-ON Final Result Performing Organization Address [facility] de Phone Number [facility] [address] * Thromboelastograph, Kaolin, Blood (10/15/2015 3:29 PM PROJECTS MANAGER) Only the most recent of2 resultswithin the time period is included. R + K 7.2 4.9 - 10.8 MIN [facility] Angle 67.1 66.2 - 80.3 DEGREES [facility] R Time 5.5 4.0 - 9.0 MIN [facility] K Time 1.7 0.9 - 1.7 MIN [facility] Maximum Amplitude 65.5 55.2 - 77.0 MM [facility] Ly30 0.0 0.0 - 4.8 % [facility] 10/15/2015 3:29 PM PROJECTS MANAGER 10/15/2015 3:29 PM PROJECTS MANAGER us Connor Ramos M.D., Ph.D. LAB BLOOD NON ADD-ON Fi nal Result Performing Organization Address [facility] Co de Phone Number [facility] [address] * (ABNORMAL) Glucose, Whole Blood (10/15/2015 2:25 PM PROJECTS MANAGER) Only the most recent of4 resultswithin the time period is included. Glucose, S 186(H) 70 - 140 MG/DL [facility] Comment:Drawn in [place] 10/15/2015 2:25 PM PROJECTS MANAGER 10/15/2015 2:25 PM PROJECTS MANAGER Narrative [facility] - 10/15/2015 2:29 PM PROJECTS MANAGER Drawn in [place] Historical Provider LAB BLOOD ADD-ON Final Resul t Performing Organization Address City/[facility]/ZIP Co de Phone Number [facility] [address] * (ABNORMAL) Platelet Count (10/15/2015 2:25 PM PROJECTS MANAGER) Only the most recent of2 resultswithin the time period is included. Pathologist [facility] HX Platelet Count 129(L) 150 - 450 X10(9)/L [facility] Comment:Drawn in [place] 10/15/2015 2:25 PM PROJECTS MANAGER 10/15/2015 2:25 PM PROJECTS MANAGER Narrative [facility] - 10/15/2015 2:39 PM PROJECTS MANAGER Drawn in [place] Historical Provider LAB BLOOD ADD-ON Final Resul t Performing Organization Address [facility] Co de Phone Number [facility] [address] * Prepare platelets (10/15/2015 2:03 PM PROJECTS MANAGER) Pathologist [facility] HXPLT # UNITS TRANSFUSED 1 [facility] HXPLATELETS UNIT INFO PLT [facility] Comment: Unit Blood Type A Pos Unit Number [id number] Component Type Platelets, Apheresis Leukoreduced, Irradiated, Bag 1 Issue Date/Time [id number] 10/15/2015 2:03 PM PROJECTS MANAGER Historical Provider BLOOD BANK PRODUCT ORDERABLE S Final Result Performing Organization Address City/[facility]/ZIP Co de Phone Number [facility] [address] * Prepare fresh frozen plasma (10/15/2015 1:56 PM PROJECTS MANAGER) HXFFP # UNITS TRANSFUSED 2 [facility] HXFFP UNIT INFO FFP [facility] Comment: Unit Blood Type A Pos Unit Number [id number] Component Type Thawed PLASMA Issue Date/Time Unit Blood Type A Pos Unit Number [id number] Component Type Thawed PLASMA Issue Date/Time 10/15/2015 1:56 PM PROJECTS MANAGER Historical Provider BLOOD BANK PRODUCT ORDERABLE S Final Result Performing Organization Address [facility]/ZIP Co de Phone Number [facility] [address] * (ABNORMAL) Hemoglobin (HGB), POCT (10/15/2015 1:39 PM PROJECTS MANAGER) Only the most recent of5 resultswithin the time period is included. Hemoglobin, B 8.0(L) 12.0 - 15.5 G/DL [facility] 10/15/2015 1:39 PM PROJECTS MANAGER 10/15/2015 1:39 PM PROJECTS MANAGER Beni Soriano M.D. LAB POCT ORDERABLES - DEVIC E Final Result Performing Organization Address City/[facility]/ZIP Co de Phone Number [facility] [address] * Hx general Pathology Report (10/15/2015 11:34 AM PROJECTS MANAGER) Only the most recent of2 resultswithin the time period is included. 10/15/2015 11:3 4 AM PROJECTS MANAGER 10/15/2015 11:34 AM PROJECTS MANAGER Narrative [facility] - 10/15/2015 11:34 AM PROJECTS MANAGER 10/15/2015 General Biopsy ([id number]) Requested By: Connor Ramos M.D. [id number] SLIDE DISPOSITION: DIAGNOSIS: A. Heart, left atrial appendage, excision: Left atrial appendage with myocyte hypertrophy, without mural thrombus, removed during the Maze procedure. Participated in interpretation: Dr. Sandeep Parks. Pager: [phone]. As the signing pathologist, I verify that I have examined all relevant slides/materials for the specimen(s) and rendered or confirmed the diagnosis. 10/17/2015 12:35 Interpreted by: Savanna Mclain M.D. [id number] Report electronically signed by Savanna Mclain M.D. Transcribed by: [facility] 10/16/2015 15:34:43 TISSUE DESCRIPTION: [id number] A1 A. Received in formalin labeled with the patient's name Christie Carlisle and and labeled as left atrial appendage is an atrial appendage measuring 7.5 x 3.3 x 1.1 cm without mural thrombus. Wealth Management Advisor sections submitted for microscopy in cassette A1. Additional tissue procured for research purposes. Part A: Left atrial tissue 1 lt atrial tissue CV Path Procedure Note 02/06/2018 10/15/2015 General Biopsy ([id number]) Requested By: Connor Ramos M.D. [id number] SLIDE DISPOSITION: DIAGNOSIS: A. Heart, left atrial appendage, excision: Left atrial appendage with myocyte hypertrophy, without mural thrombus, removed during the Maze procedure. Participated in interpretation: Dr. Sandeep Parks. Pager: [phone]. As the signing pathologist, I verify that I have examined all relevant slides/materials for the specimen(s) and rendered or confirmed the diagnosis. 10/17/2015 12:35 Interpreted by: Savanna Mclain M.D. [id number] Report electronically signed by Savanna Mclain M.D. Transcribed by: [facility] 10/16/2015 15:34:43 TISSUE DESCRIPTION: [id number] A1 A. Received in formalin labeled with the patient's name Christie Carlisle and and labeled as left atrial appendage is an atrial appendage measuring 7.5 x 3.3 x 1.1 cm without mural thrombus. Wealth Management Advisor sections submitted for microscopy in cassette A1. Additional tissue procured for research purposes. Part A: Left atrial tissue 1 lt atrial tissue CV Path Connor Ramos M.D., Ph.D. LAB PATHOLOGY/CYTOLOGY ORDERABLES Final Result Performing Organization Address [facility] Co de Phone Number [facility] [address] * HX intra-Op Auto Tx (10/15/2015 10:05 AM PROJECTS MANAGER) HXRBC # UNITS TRANSFUSED 3.45 [facility] HXRBC UNIT INFO RBC [facility] Comment: Component Type Intraoperative Salvaged RBC Unit Number =[id number] Issue Date/Time [id number] Component Type Intraoperative Salvaged RBC Unit Number =[id number] Issue Date/Time [id number] Component Type Intraoperative Salvaged RBC Unit Number =[id number] Issue Date/Time [id number] 10/15/2015 10:0 5 AM PROJECTS MANAGER Historical Provider LAB HISTORICAL ORDERS Final Result Performing Organization Address [facility] de Phone Number [facility] [address] * Echo Transesophageal (ANISH) (10/15/2015 10:05 AM PROJECTS MANAGER) Anatomical Region Laterality Modality Echocardiography 10/15/2015 10:0 5 AM PROJECTS MANAGER Connor Ramos M.D., Ph.D. CV ECHO PROCEDURES Brii l Result * ANESTHESIOLOGY IMAGE EXAM (10/15/2015 9:09 AM PROJECTS MANAGER) Anatomical Region Laterality Modality Other 10/15/2015 9:09 AM PROJECTS MANAGER Addenda Addendum by ProviderButch M.D. on 10/15/2015 9:09 AM PROJECTS MANAGER ANES^^^MCR Guided procedure 10/15/2015 09:09:30 Historical Provider IMG NON RAD IMAGING PROCEDUR ES Final Result * CATH (10/12/2015 8:45 AM PROJECTS MANAGER) Anatomical Region Laterality Modality Other 10/12/2015 8:45 AM PROJECTS MANAGER us Historical Provider IMG NON RAD IMAGING PROCEDUR ES Final Result * Cardiac Catheterization Report Text (10/12/2015 8:36 AM PROJECTS MANAGER) Anatomical Region Laterality Modality Other 10/12/2015 8:36 AM PROJECTS MANAGER Narrative 10/12/2015 11:37 AM PROJECTS MANAGER Oct 12, 2015 CATH FINAL REPORT REPORT [...] Loss: Minimal 09:07 Procedural Complications: None 09:08 Ceramic Mold Designer Departure 09:08 Case End PHYSICIAN PARTICIPATION AND [...] Loss: Minimal 09:07 Procedural Complications: None 09:08 Ceramic Mold Designer Departure 09:08 Case End PHYSICIAN PARTICIPATION AND DIRECTION The responsible physician was present during the entire procedure. All medications, including moderate sedation, administered during theepisode of care were done so under physician direction. Connor Ramos M.D., Ph.D. CV CARDIAC CATH PROCEDU RES Final Result * Cardiac Catheterization (10/12/2015 8:36 AM PROJECTS MANAGER) Anatomical Region Laterality Modality Other 10/12/2015 8:36 AM PROJECTS MANAGER Historical Provider CV CARDIAC CATH PROCEDURES F inal Result * ABORh, RBC (10/12/2015 7:27 AM PROJECTS MANAGER) Only the most recent of2 resultswithin the time period is included. HXABO/RH BLOOD TYPE A Neg [facility] 10/12/2015 7:27 AM PROJECTS MANAGER Historical Provider LAB BLOOD BANK TEST ORDERABL ES Final Result Performing Organization Address [facility] de Phone Number [facility] [address] * Antibody Screen, RBC (10/12/2015 7:27 AM PROJECTS MANAGER) Antibody Screen Negative [facility] 10/12/2015 7:27 AM PROJECTS MANAGER Historical Provider LAB BLOOD BANK TEST ORDERABL ES Final Result Performing Organization Address [facility] Co de Phone Number [facility] [address] * BMP (Basic Metabolic Panel), POCT (10/04/2015 11:07 AM PROJECTS MANAGER) Hematocrit TNP 34.9 - 44.5 P[facility]CHART Blood 10/04/2015 11:0 7 AM PROJECTS MANAGER Beni Turpin M.D. LAB POCT ORDERABLES - MAYUR CE Edited Result - Final Performing Organization Address [facility] de Phone Number POWERCHART * Gram Stain, Urine (09/21/2015 8:50 PM PROJECTS MANAGER) Gram's Stain, Screen, U Negative [facility] 09/21/2015 8:50 PM PROJECTS MANAGER 09/21/2015 8:50 PM PROJECTS MANAGER Gisela Foster APRN, C.N.P., M.S.N. LAB URINE ORD ERABLES Final Result Performing Organization Address [facility] Co de Phone Number [facility] [address] * Microbiology Reports (09/21/2015 4:01 PM PROJECTS MANAGER) Only the most recent of2 resultswithin the time period is included. 09/21/2015 4:01 PM PROJECTS MANAGER 09/21/2015 4:01 PM PROJECTS MANAGER Narrative [facility] - 09/26/2015 6:30 PM PROJECTS MANAGER 21-SEP-2015 BLOOD, SoftOrd# [id number] (Ordered 21-SEP-2015; Collected 21-SEP-2015 16:01; Received 21-SEP-2015 16:24) [facility] Drawn Above IV BACTERIA/MARILYN CULTURE, BLOOD (Reported 26-SEP-2015 18:30) FINAL No growth after 5 days of incubation. Procedure Note 02/23/2018 21-SEP-2015 BLOOD,SoftOrd# [id number] (Ordered 21-SEP-2015; Collected 21-SEP-2015 16:01; [id number] 16:24) [facility] Drawn Above IV BACTERIA/MARILYN CULTURE, BLOOD(Reported 26-SEP-2015 18:30) FINAL No growth after 5 days of incubation. Gisela Foster APRN, C.N.P., M.S.N. LAB M ICROBIOLOGY - GENERAL ORDERABLES Final Result Performing Organization Address [facility] Co de Phone Number [facility] [address] * Outside DX Chest (09/21/2015 6:08 AM PROJECTS MANAGER) 09/21/2015 6:08 AM PROJECTS MANAGER Addenda Addendum by ProviderButch M.D. on 09/21/2015 6:08 AM PROJECTS MANAGER ODM^^^MCR XR CHEST 2 VIEWS PA AND LATERAL 09/21/2015 06:08:14 Historical Provider IMG DIAGNOSTIC IMAGING PROCE DURES Final Result Performing Organization Address City/[facility]/ZIP Co de Phone Number [facility] [address] [place] [id number] * Echo Transthoracic (TTE) (09/05/2015 9:57 AM CDT) Anatomical Region Laterality Modality Echocardiography 09/05/2015 9:57 AM CDT Historical Provider CV ECHO PROCEDURES Edited Re sult - Final * Mercury (Hg) (09/05/2015 9:55 AM CDT) Only the most recent of2 resultswithin the time period is included. Mercury, B <1 0 - 9 [facility] P[facility]CHART Comment: Test Performed by: [place] [address] Credit Officer: Ollie Carbajal II, M.D., Ph.D. Blood 09/05/2015 9:55 AM CDT Beni Turpin M.D. LAB BLOOD NON ADD-ON Final Result Performing Organization Address City/[facility] Co de Phone Number P[facility]CHART * Bacterial Culture, Aerobic, Urine (09/03/2015 3:37 PM CDT) Pathologist [facility] Bacterial Culture, Aerobic, Urine POWERCHART HXFinal No growth POWERCHART Urine, First Voided 09/03/2015 3:37 PM CDT 09/03/2015 3:37 PM CDT Beni Turpin M.D. LAB MICROBIOLOGY - GENERAL ORDERABLES Edited Result - Final Performing Organization Address [facility]/ZIP Co de Phone Number P[facility]CHART * (ABNORMAL) Urinalysis, Midstream, with culture if indicated (09/03/2015 3:07 PM CDT) HXUr Color Yellow Colorless POWERCHART Clarity Clear Clear POWERCHART Glucose Negative Negative MGDL POWERCHART HXBILIRUBIN Negative Negative POWERCHART Ketones, QL(U) Negative Negative MGDL POWERCHART Specific [place], POCT, U 1.015 POWERCHART HXBLOOD Small(A) Negative [...] URINE ORDERABLES Final Result Performing Organization Address [facility] [place] de Phone Number POWERCHART * Hepatic Function [...] ADD-ON Final Res ult Performing Organization Address [facility] [place] de Phone Number POWERCHART * Vitamin B12 Level and Folate (09/03/2015 2:56 PM CDT) Folate, S >16.2 >=4.0 NGML POWERCHART Vitamin B12 Assay, S >1473 180 - 914 NGL POWERCHART Blood 09/03/2015 2:56 PM CDT Beni Turpin M.D. LAB BLOOD NON ADD-ON Final Result Performing Organization Address [facility] [place] de Phone Number POWERCHART * Echo Transthoracic (TTE) (01/06/2013 12:26 PM PROJECTS MANAGER) Anatomical Region Laterality Modality Echocardiography 01/06/2013 12:2 6 PM PROJECTS MANAGER Historical Provider CV ECHO PROCEDURES Final Res [...] HPV Reflex (06/09/2011 9:42 AM CDT) Interpretation [id number] POWERCHART HXThPrep Scrn Fnl-Hiram See Comment POWERCHART Comment: A. ThinPrep Pap Test Screen (Cervical/Endocervical HPV Reflex): Satisfactory for evaluation. Scanty cellularity. Negative for intraepithelial lesion or malignancy. [facility] Cyto-Hiram See Comment POWERCHART Comment: Report electronically signed by Magdalena Garzon, CT(ASCP) 06/12/2011 11:10 Interpreted by: Caleb Angulo, CT(ASCP) [facility] See Comment POWERCHART Comment: A. ThinPrep Pap Test Screen (Cervical/Endocervical HPV Reflex): Received cloudy specimen in ThinPrep vial. Test Performed by: [facility] Dpt of Lab Med and Pathology [address] [place] [address] Credit Officer: Garrick Oviedo III, M.D. Cervix/Endocervix 06/09/2011 9:42 AM CDT Beni Turpin M.D. LAB PAP PATHDX ORDERABLES Final Result POWERCHART * Pathology Surgical Pathology, [facility] (11/11/2010 4:38 PM PROJECTS MANAGER) [facility] [id number] POWERCHART HXSurg IV Ref-Hiram See Comment POWERCHAR T Comment:RESULT: Francisco strickland M.D. HXSurg IV [facility] See Comment POWERCHART Comment: [facility] [address] [place] [address] Priority Fax SLIDE DISPOSITION: HXSurg IV Ts [facility] See Comment POWERCHART Comment: [id number] A1 A. Received in formalin labeled with the patient's name and medical record number as [id number] labeled as perineal are three fragments of solorio-brown irregular soft tissue ranging in size from 0.3-0.5 cm in greatest dimension. Specimen is entirely submitted in cassettes A1. Part A: Perineal 1 Perineal XRSR Path HXSurg IV [facility]agP[facility] See Comment POWERCHART Comment:RESULT: A. Perineal, biopsy: Lichen sclerosis et atrophicus. HXSurg IV [facility] See Comment POWERCHART Comment: RESULT: 11/14/2010 18:09 Interpreted by: Radha Avitia M.D. Report electronically signed by Radha Avitia M.D. Transcribed by: juan f 11/14/2010 18:06:46 Test Performed by: [facility] Dpt of Lab Med and Pathology [address] [place] [address] Credit Officer: Garrick Oviedo III, M.D. Tissue 11/11/2010 4:38 PM PROJECTS MANAGER us Francisco Jackson M.D. LAB SURG PATH ORDERABLES F inal Result POWERCHART * Echocardiogram (06/13/2010 9:02 AM CDT) Anatomical Region Laterality Modality Echocardiography 06/13/2010 9:02 AM CDT us Historical Provider CV ECHO [...] Note John Paul Mullen Jr., M.D. / Butch Samuel M.D. - 04/20/2017 HISTORY: Followup of microcalcifications [...] screening mammography. ACR code: 2, benign findings. us Beth Crawford RTatyana(R), R.TJuan Alberto(R)(M) [facility] PROC EDURES Edited Result - Final * [...] AM CDT 03/25/2005 9:50 AM CDT Narrative [facility] - 03/25/2005 9:50 AM CDT 03/25/2005 Cytology Non-Gynecological ([id number]) Requested By: Leonila Hassan M.D. [id number] SPECIMEN DESCRIPTION: A. Pelvic Wash: Received 40cc of yellow colored fluid DIAGNOSIS: A. Pelvic Wash: Negative for malignancy. Reactive mesothelial cells present. 03/26/2005 Jaime Cox M.D. [phone] Procedure Note 02/08/2018 03/25/2005 Cytology Non-Gynecological ([id number]) Requested By: Leonila Hassan M.D. [id number] SPECIMEN DESCRIPTION: A. Pelvic Wash: Received 40cc of yellow colored fluid DIAGNOSIS: A. Pelvic Wash: Negative for malignancy. Reactive mesothelial cells present. 03/26/2005 Jaime Cox M.D. [phone] Leonila Hassan M.D. LAB PATHOLOGY/CYTOLOGY ORD ERABLES Final Result [facility] [address] * [facility]-Obstetrics [facility] Gyne[facility] Image Exam (03/25/2005 9:10 AM CDT) Narrative [facility] - 03/07/2020 1:13 PM CDT This order has been created and auto-finalized to support the import of images acquired without order. The clinical documentation to support these images can be found on the encounter that produced images. us Provider Not In System IMG NON RAD IMAGING PROCE DURES Final Result Performing Organization Address [facility] Co de Phone Number [facility] NA * PATHOLOGY IMAGE EXAM (03/25/2005 9:07 AM CDT) Anatomical Region Laterality Modality Other 03/25/2005 9:07 AM CDT Addenda Addendum by Provider, Historical on 03/25/2005 9:07 AM CDT PATH^^^MCR Specimen 03/25/2005 09:07:00 us Historical Provider IMG NON RAD IMAGING PROCEDUR ES Final Result * HX hilary Surg Bld Order (03/25/2005 5:05 AM CDT) Antibody Screen Neg [facility] 03/25/2005 5:05 AM CDT 03/25/2005 7:01 AM CDT us Historical Provider LAB HISTORICAL ORDERS Final Result Performing Organization Address [facility] Co de Phone Number [facility] [address] * US Abdomen Pelvis Vessels Limited [...] by: Ronaldo Clayton MD. [id number] 04-Mar-2005 10:27 Procedure Note Forrest, Seven Glaser [...] DX Outside Image Interpretation (11/04/2004 11:35 AM PROJECTS MANAGER) Anatomical Region Laterality Modality N/A Radiographic Velia ging 11/04/2004 11:3 5 AM PROJECTS MANAGER Narrative 11/04/2004 12:06 PM PROJECTS MANAGER 04-Nov-2004 11:35:00 Exam: Interp of OUTSIDE X-RAY [...] small cysts scattered in the liver. (11-04-04) (700) Electronically signed by: Dionisio Newell M.D. 04-Nov-2004 [...] signed by: Dionisio Newell M.D. 04-Nov-2004 12:06 us Sean [facility] DIAGNOSTIC IMAGING PROC EDURES Final Result * US Abdomen Limited (11/01/2004 2:08 PM PROJECTS MANAGER) Anatomical Region Laterality Modality Abdomen N/A Ultrasound 11/01/2004 2:08 PM PROJECTS MANAGER Narrative 11/19/2004 12:47 PM PROJECTS MANAGER 01-Nov-2004 14:08:00 Exam: US Retroperitoneal Limited Indications: [...] negative. Left kidney 10cm, right kidney 10.8cm [id number]. Ultrasound Electronic Images Only--No Films Made Ind: [...] otherwise negative. Left kidney 10cm, right kidney [id number]-st-xdvi. Ultrasound Electronic Images Only--No Films Made Ind: [id number] Electronically signed by: Teodoro Hall MD. 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 [address] [place] [phone] PCP - General Family Medicine 09/20/20
--- OUTSIDE RECORDS SUMMARY | 2025-09-02 16:25 | XMS_ITS | Clinical Summary ---
Author Organization [facility] Address [address] [place] [id number] Care Team Providers Care Cap Sewer Name Role Phone Jay Guzman Primary Care [...] listed no reactions Naproxen Visual Disturbances 12/19/2014 [place] Grass Extract *Unknown 11/12/2018 [place] breads and grains Wheat Other - Describe [...] of kidney 11/04/2004 Simple renal cyst 11/01/2004 Encounters Date Type Department Care Team Description 08/29/2025 Orders Only [facility] Scanner 1 scan: (1-Ord) [facility], BMD BONE DENSITY SPINE HIPS, 08/29/2025 from Last 3 Months Social History Tobacco Use Types Packs/Day Years [...] on file 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 Gender Identity Not on file Sexual Orientation [...] 1-dose 75+ series) 2022 COVID-19 vaccine series ( season) 2025 04/29/2024, 09/22/2023, 09/12/2022, Additional history exists Influenza Vaccine (#1) 2025 Hepatitis B series for 19+ Aged Out N o longer eligible based on patient's age to complete this topic Procedures Procedure Name Priority Date/Time Associated Diagnosis Comments SCAN-RADIOLOGY REPORT 08/29/2025 12:00 AM CDT from Last 3 Months Results * SCAN-RADIOLOGY REPORT (08/29/2025 12:00 AM CDT) Anatomical Region Laterality Modality Other us Scanner OTHER Final Result from Last 3 Months Insurance MEDICARE PART B HB ONLY [employer] MR PB HUMANA CHOICE PPO MR HP [employer] Advance Directives Documents on File Type Date Recorded Patient Digital Communications Manager Expl anation Healthcare Directive 05/12/2009 12:00 AM A DVANCED DIRECTIVE Care Teams Cap Sewer Relationship Specialty Start Date End Date Jay Guzman MBBS [address] [place] [id number] PCP - General Family Practice 01/13/21
--- OUTSIDE RECORDS SUMMARY | 2025-09-02 16:26 | XMS_ITS | Encounter Summary ---
Author Organization [facility] Address [address] [place] [address] Care Team Providers Care Director Of Exhibits Name Role Phone Jay Guzman M.D. Primary Care [facility] Reason for Visit * Reason Onset Date Comments Echo Move Up Request 08/23/2025 Surgical Encounter Details Date Type Department Care Team (Latest Contact Info) Description 08/23/2025 Clinical Communication Department of Cardiovascular Medicine in [place], [place] [address] [place] [address] Cement ContractorCarl M.D. Echo Move Up Request (Surgical ) Social History Tobacco Use Types Packs/Day Years Used Date Smoking Tobacco: Never Passive Smoke Exposure: Past Smokeless Tobacco: Never Comments:Father smoked until 1956 Alcohol Use Standard Drinks/Week Comments Not Currently 0 (1 standard drink = 0.6 oz pure alcohol) Not used since 1976 - sikh reasons Humiliation, Afraid, Rape, and Kick questionnair [...] needed for daily living? No 07/14/2025 [facility] Utilities Answer Date Recorded In the past 12 months has th e electric, gas, oil, or water company threatened to shut off services in your home? No 07/14/2025 Depression Answer Date Recor ded PHQ-9 Total Score (max 27) 0 12/02 Housing Stability Answer Date Recorded What is your living situation today? I have a [facility] place to live 07/14/2025 Education Answer Date Recorded What is the highest level of school you have completed or the highest degree you have received? 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 AM LINE PATROLMAN Gender Identity Female 08/18/2021 8:27 PM CDT [...] CDT Office Visit Department of Family Medicine, [facility], in [place], [place] [address] [place] [address] Jay Guzman M.B.B.S., MPaulie [address] [place] [address] 10/24/2025 1:00 PM LINE PATROLMAN Appointment Department of Cardiovascular Diseases in [place], [place] [address], [place] [phone] Jorge Ordaz M.D. [address] [place] [address] documented as of this encounter Visit Diagnoses Not on filedocumented in this encounter Additional Health Concerns Assessment Noted Time PHQ-9 Depression Total Score: 0 12/02/19 3:00 PM LINE PATROLMAN A fall risk assessment has been complete d for the patient 09/12/2022 10:09 AM CDT documented as of this encounter Care Teams Director Of Exhibits Relationship Specialty Start Date End Date Jay Guzman M.B.BLeonarda Alcala [address] [place] [phone] PCP - General Family Medicine 09/20/20 documented as of this encounter
--- OUTSIDE RECORDS SUMMARY | 2025-09-02 16:26 | XMS_ITS | Encounter Summary ---
Author Organization [facility] Address [address] [place] [address] Care Team Providers Care Construction Teacher Name Role Phone Jay Guzman M.D. [facility] Encounter Details Date Type Department Care Team (Late st Contact Info) Description 08/21/2025 Orders Only Department of Cardiovascular Medicine in [place], [place] [address] [place] [address] Perry Lozano M.D., M.P.H. [address] [place] [phone] Atrial Fibrillation Permanent (HCC) (Primary Dx) Social History Tobacco Use Types Packs/Day Years Used Date Smoking Tobacco: Passive Smo ke Exposure - Never Smoker Passive Smoke Exposure: Past Smokeless Tobacco: Never Comments:Father smoked until 1956 Alcohol Use Standard Drinks/Week Comments Not Currently 0 (1 standard drink = 0.6 oz pure alcohol) Not used since 1976 - methodist reasons Humiliation, Afraid, Rape, and Kick questionnair [...] for daily living? No 07/14/2025 [facility] Utilities Answer Date Recorded In the past 12 months has e electric, gas, oil, or water company threatened to shut off services in your home? No 07/14/2025 Depression Answer Date Recor ded PHQ-9 Total Score (max 27) 0 12/02 Housing Stability Answer Date Recorded What is your living situation today? I have a [facility] place to live 07/14/2025 Education Answer Date Recorded What is the highest level of school you have completed or the highest degree you have received? 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 [address] [place] [address] documented as of this encounter Visit Diagnoses Diagnosis Atrial Fibrillation Permanent (HCC)- Primary documented in this encounter Additional Health Concerns Assessment Noted Time PHQ-9 Depression Total Score: 0 12/02/19 25 3:00 PM MAINFRAME PROGRAMMER ANALYST A fall risk assessment has been complete d for the patient 09/12/2022 10:09 AM CDT documented as of this encounter Care Teams Construction Teacher Relationship Specialty Start Date End Date Jay Guzman M.B.B.S., [place] [address] [place] [address] PCP - General Family Medicine 09/20/20 documented as of this encounter
--- NOTE | 2025-09-02 16:46 | CRLHL7_ITS ---
For Patients: As a result of the Century Cures Act, medical imaging exams and procedure reports are released immediately into your electronic medical record. You may view this report before your referring provider. If you have questions, please contact your health care provider. Indication: Chest pain Technique: Two views of the chest. Comparison: Chest x-ray August 29, 2025. Findings/Impression: The cardiac silhouette is enlarged. Loop recorder. Sternotomy wires. No focal consolidation, pleural effusion, or pneumothorax. Dictated by John Llamas MD @ 09/02/2025 5:53:04 PM (Electronically Signed)
[2025-09-02 17:17] LABS: Troponin, Point-of-Care* 0.00 ng/ml (0.01-0.04)
[2025-09-02 17:18] LABS: Hematocrit* 44.4 % (33.0-51.0); Hemoglobin* 14.5 gm/dL (12.0-16.0); Immature Granulocytes Abs Auto 0.01 K/uL (0.00-0.30); Immature Granulocytes Pct Auto 0.2 %; Mean Corpuscular HGB Conc 33 gm/dL (32-36); Mean Corpuscular Hemoglobin 30 pg (26-34); Mean Corpuscular Volume 93 fL (80-100); RDW Coefficient of Variation % 13.0 % (11.5-15.5); Red Blood Count* 4.80 m/uL (4.00-5.20); White Blood Count* 5.42 K/uL (4.50-11.00)
--- NOTE | 2025-09-02 17:21 | ED.CHESTPAIN ---
HPI - Chest Pain General Date Seen: 09/02/25 Chief Complaint: Unspecified Complaint, Adult Stated Complaint: pacemaker issue Time Seen by Provider: 09/02/25 16:34 Source: patient, family and RN notes reviewed Mode of arrival: ambulatory Limitations: no limitations History of Present Illness HPI narrative: Patient is a very nice 80 lady who presents here for evaluation of lightheadedness, and possible change in her EKG, she has a home EKG that she says is change markedly from what it was when she 1st home. She underwent at [facility] 3 days ago new type of pacemaker where they went in her right groin, went up to the heart then did a non lead pacemaker. She reports stress for this she called the [facility] and they recommended she come into the ER she is not having chest pain per se is almost like she just feels a little bit dizzy. He does not feel like she is going to pass out, no numbness and tingling no cough, no pressure over her chest. complaint: chest discomfort Onset (ago): hour(s) Timing of current episode: still present Prior episodes: No Onset: during rest Pain location: substernal and left chest Pain radiation: none Severity: mild Relieving factors: nothing Exacerbating factors: nothing Context: other (Recent pacemaker placement at the [facility]) Treatment prior to arrival: none Related Data On Oral Contraceptives: No Home Medications ?Medication ?Instructions ?Recorded ?Confirmed No Known Home Medications 08/29/25 08/29/25 Allergies Allergy/AdvReac Type Severity Reaction Status Date / Time cephalexin (From Keflex) Allergy Unknown Verified 08/29/25 16:53 corn Allergy Unknown Verified 08/29/25 16:53 milk Allergy Unknown Verified 08/29/25 16:53 wheat Allergy Unknown Verified 08/29/25 16:53 diltiazem AdvReac Intermediate Edema, Verified 08/29/25 16:53 Sinus Pause verapamil AdvReac Intermediate Edema Verified 08/29/25 16:53 Review of Systems Status of ROS Reports: 10 or more systems reviewed and unremarkable except as noted in History and below PFSH PFSH Social History Smoking Status: Never smoker How often do you have a drink containing alcohol: never AUDIT-C Alcohol total score: 0 Non-prescribed substance use: denies use Exam Narrative Exam Narrative: On examination in room 2 patient is in no apparent distress seems very anxious, nontoxic pupils equal round reactive to light there is no scleral icterus redness TMs are normal oropharynx normal there is no adenopathy anterior posterior chains, chest is good air entry bilaterally, no wheezing crackles noted heart sounds are normal her abdomen is soft there is no guarding no organomegaly her right groin shows no evidence of a hematoma. And she moves all extremities independently and well. Const Vital Signs, click to edit/add: Vital Signs - 24 hr 09/02/25 16:30 09/02/25 16:45 09/02/25 17:12 Temperature 98.3 F Pulse Rate 92 Pulse Rate [Pulse Oximeter] 107 H Respiratory Rate 26 H Blood Pressure Blood Pressure [Right Upper Arm] 175/83 H Pulse Oximetry 96 97 97 Oxygen Delivery Method Room Air 09/02/25 17:13 09/02/25 17:15 09/02/25 17:30 Temperature Pulse Rate 90 90 90 Pulse Rate [Pulse Oximeter] Respiratory Rate 12 24 16 Blood Pressure 146/95 H Blood Pressure [Right Upper Arm] Pulse Oximetry 98 96 98 Oxygen Delivery Method 09/02/25 17:32 Temperature Pulse Rate 90 Pulse Rate [Pulse Oximeter] Respiratory Rate 25 H Blood Pressure 148/97 H Blood Pressure [Right Upper Arm] Pulse Oximetry 98 Oxygen Delivery Method Course Vital Signs Vital signs: Initial Vital Signs Temperature 98.3 F 09/02/25 16:30 Temperature Source Temporal Artery Scan 09/02/25 16:30 Pulse Rate 107 H 09/02/25 16:30 Blood Pressure 175/83 H 09/02/25 16:30 Blood Pressure Mean 113 H 09/02/25 16:30 Pulse Oximetry 96 09/02/25 16:30 Oxygen Delivery Method Room Air 09/02/25 16:30 Vital Signs Temperature 98.3 F 09/02/25 16:30 Pulse Rate 107 H 09/02/25 16:30 Blood Pressure 175/83 H 09/02/25 16:30 Pulse Oximetry 96 09/02/25 16:30 Oxygen Delivery Method Room Air 09/02/25 16:30 Temperature 98.3 F 09/02/25 16:30 Pulse Rate 90 09/02/25 17:32 Respiratory Rate 25 H 09/02/25 17:32 Blood Pressure 148/97 H 09/02/25 17:32 Pulse Oximetry 98 09/02/25 17:32 Oxygen Delivery Method Room Air 09/02/25 16:30 MDM - Chest Pain MDM Narrative Medical decision making narrative: Life-threatening differential diagnosis considered include stroke, coronary artery disease, pneumonia, and heart failure. Other differential diagnosis include but are not limited to electrolyte imbalances, anemia, medication reactions, and urinary tract infection Medical Records Data Attestation: I reviewed the patient's medical records. Lab Data Attestation: I reviewed the patient's lab results. Lab results narrative: It is reassuring that the troponin is 000s, considering she just had that cardiac procedure. Patient is tells me that she would like to go home, she feels that this is stress induced. She has no chest pain shortness of breath or any other symptoms. Labs: Lab Results 09/02/25 Range/Units 17:00 WBC 5.42 (4.50-11.00) K/uL RBC 4.80 (4.00-5.20) m/uL Hgb 14.5 (12.0-16.0) gm/dL Hct 44.4 (33.0-51.0) % MCV 93 (80-100) fL MCH 30 (26-34) pg MCHC 33 (32-36) gm/dL RDW Coeff of Swapna 13.0 (11.5-15.5) % Plt Count 191 (140-440) K/uL Neut % (Auto) 67.3 (42.0-72.0) % Lymph % (Auto) 19.4 L (20-44) % [place] % (Auto) 9.4 (0.0-11.0) % Eos % (Auto) 3.3 (0.0-7.0) % Baso % (Auto) 0.4 (0.0-3.0) % Neut # (Auto) 3.65 (1.7-7.0) K/uL Lymph # (Auto) 1.10 (0.90-2.90) K/uL [place] # (Auto) 0.50 (0.00-0.90) K/UL Eos # (Auto) 0.18 (0.00-0.50) K/uL Baso # (Auto) 0.02 (0.00-0.30) K/uL Abs Immat Gran (auto) 0.01 (0.00-0.30) K/uL Imm/Tot Granulo (auto) 0.2 % Sodium 136 (135-149) mmol/L Potassium 3.9 (3.6-5.1) mmol/L Chloride 101 (96-114) mmol/L Carbon Dioxide 29 (20-32) mmol/L Anion Gap 6 L (7-15) mEq/L BUN 18 (7-30) mg/dL Creatinine 0.8 (0.5-1.5) mg/dL Estimated Creat Clear 48.80 Estimated GFR 75 ml/min Glucose 100 (60-115) mg/dL Calcium 10.0 (8.4-10.6) mg/dL POC Troponin I 0.00 L (0.01-0.04) ng/ml Imaging Data Chest x-ray: Attestation: I have reviewed the pertinent imaging results. My impression: Within her left ventricle no septal area, there is the evidence of the pacemaker, she showed me pictures that she had on her phone, of post placement, they look very very close and similar. Radiologist's impression: [place] [id number] Diagnostic Imaging Report Patient: Christie Carlisle MR#: [id number] : 1945 Acct:[id number] Loc: ED Service Date: 09/02/[address]: Ordering Physician: Se Noel M.D. Date of Service: 09/02/25 Procedure(s): XR chest 2V Accession Number(s): [id number] cc: Provider,Not a Local; Se Noel M.D.~ For Patients: As a result of the Cures Act, medical imaging exams and procedure reports are released immediately into your electronic medical record. You may view this report before your referring provider. If you have questions, please contact your health care provider. Indication: Chest pain Technique: Two views of the chest. Comparison: Chest x-ray August 29, 2025. Findings/Impression: The cardiac silhouette is enlarged. Loop recorder. Sternotomy wires. No focal consolidation, pleural effusion, or pneumothorax. Dictated by John Llamas MD @ 09/02/2025 5:53:04 PM (Electronically Signed) ECG Data Attestation: I personally reviewed and interpreted this ECG as follows: ECG interpretation date: 09/02/25 Prior ECG tracings: available for review Interpretation: EKG shows ventricularly paced rhythm, at 1 await with frequent PVCs, should be noted that her PVCs look like previous EKG Discharge Plan Discharge Clinical Impression: Chest discomfort, Anxiety about health, History of pacemaker Patient Disposition: Home w/ Parent or Adult Condition: Stable Instructions: Chest Pain (ED), Panic Attack (ED) Additional Instructions: Home rest reassurance given, follow up here if further of signs and symptoms or a call to [facility]. Activity Level: Light activity Discharge Diet: Regular Prescriptions: No Action No Known Home Medications Follow Up/Referrals: Provider,Not a Local [Primary Care Provider, Family Practice] Stand Alone Forms: [facility] Info Instructions
[2025-09-02 17:27] LABS: Lymphocytes Absolute Auto 1.10 K/uL (0.90-2.90); Slide Review Reflex No
[2025-09-02 17:29] LABS: Chloride* 101 mmol/L (96-114); Sodium* 136 mmol/L (135-149)
[2025-09-02 17:30] LABS: Potassium* 3.9 mmol/L (3.6-5.1)
[2025-09-02 17:32] LABS: Blood Urea Nitrogen* 18 mg/dL (7-30); Creatinine* 0.8 mg/dL (0.5-1.5); Est. Creatinine Clearance* 48.80; Estimated Glomerular Filt Rate 75 ml/min
[2025-09-02 17:33] LABS: Anion Gap 6 mEq/L (7-15); Calcium* 10.0 mg/dL (8.4-10.6); Carbon Dioxide* 29 mmol/L (20-32); Glucose* 100 mg/dL (60-115)
== END 2025-09-02 18:25 | disposition home or self-care (01) ==
PROVIDERS: Emergency Provider Family Medicine
DX: R07.9 Chest pain, unspecified (principal); F41.9 Anxiety disorder, unspecified
CPT/HCPCS: 36415; 71046; 80048; 84484; 85025; 93005; 94761; 99284